=== PATIENT | male | born 1945 | race Caucasian/White ===

== ENCOUNTER 2020-08-23 12:21 | Outpatient (REF) | payer MEDICARE, SELFPAY ==
--- NOTE | 2020-08-23 | XR_ITS ---
EXAMINATION: XR SINUSES CLINICAL INFORMATION: Sinusitis. COMPARISON: None TECHNIQUE: 3 views of the sinuses were obtained. FINDINGS: Paranasal sinuses appear clear without air-fluid levels. No fractures are identified. No radiodense foreign bodies. IMPRESSION: Clear paranasal sinuses.
[2020-08-23 14:17] LABS: PSA,Total (Free>4and<10) 1.54 ng/mL (0.00-4.00)
== END 2020-08-23 12:22 | disposition home or self-care (01) ==
LOC: HO.10HDL 12:21
PROVIDERS: Absent Provider Otolaryngology; Visit Provider Urology
DX: N40.1 Benign prostatic hyperplasia with lower urinary tract symptoms (principal); Z12.5 Encounter for screening for malignant neoplasm of prostate; J32.9 Chronic sinusitis, unspecified
CPT/HCPCS: 36415; 70220; 84153

== ENCOUNTER → 2020-08-27 13:02 | Outpatient (BNVA) | payer MEDICARE, SELFPAY | PROVIDERS: PCP Internal Medicine; Visit Provider Urology | DX: N40.1 Benign prostatic hyperplasia with lower urinary tract symptoms (principal); N13.8 Other obstructive and reflux uropathy | CPT/HCPCS: 51798; 99213 ==

== ENCOUNTER 2020-10-27 09:37 | Outpatient (REF) | payer MEDICARE, SELFPAY ==
[2020-10-27 10:04] LABS: MANUAL DIFF FLAG NO
[2020-10-27 10:18] LABS: Basophils Absolute Auto 0.1 X10*3/uL (0.0-0.2); Basophils Percent Auto 0.9 % (0-2); Eosinophils Absolute Auto 0.2 X10*3/uL (0.0-0.4); Eosinophils Percent Auto 3.5 % (0-4); Hematocrit 43.1 % (42-52); Hemoglobin 14.6 g/dl (14.0-18.0); Imm Gran Abs Auto 0.01 X10*3/uL (0.00-0.03); Imm Gran Pct Auto 0.2 % (0.0-0.4); Lymphocytes Absolute Auto 1.8 X10*3/uL (1.2-4.9); Lymphocytes Percent Auto 31.7 % (20-40); Mean Corpuscular HGB Conc 33.9 g/dl (31.0-36.0); Mean Corpuscular Hemoglobin 31.3 pg (27.0-33.0); Mean Corpuscular Volume 92.3 fL (80-98); Mean Platelet Volume 10.4 fL (9.4-12.4); Monocytes Absolute Auto 0.6 X10*3/uL (0.1-1.2); Monocytes Percent Auto 10.6 % (2-11); Neutrophils Percent Auto 53.1 % (45-73); Platelet Count 153 X10*3/uL (160-400); Red Blood Count 4.67 X10*6/uL (4.60-5.80); Red Cell Distribution Width 12.8 % (11.0-16.0); White Blood Count 5.7 X10*3/uL (4.8-10.8)
[2020-10-27 10:29] LABS: Alanine Aminotransferase 26 U/L (0-40); Albumin Level 4.4 g/dL (3.5-5.0); Alkaline Phosphatase 67 U/L (39-117); Anion Gap 11 (12-20); Aspartate Amino Transferase 20 U/L (5-37); Bilirubin Total 1.3 mg/dL (0.0-1.0); Blood Urea Nitrogen 38 mg/dL (9-16); Calcium 9.1 mg/dL (8.4-10.2); Carbon Dioxide 26 mmol/L (22-29); Chloride 104 mmol/L (96-108); Cholesterol 108 mg/dL; Estimated Glomerular Filt Rate 48; Glucose Fasting 95 mg/dL (60-99); HDL Cholesterol 41 mg/dL; LDL Cholesterol Calculated 53 mg/dl; Potassium 4.2 mmol/l (3.3-5.1); Sodium 137 mmol/L (135-145); Total Protein 6.9 g/dL (6.5-8.0); Triglycerides 74 mg/dL
[2020-10-27 10:53] LABS: Thyroid Stimulating Hormone 1.72 uIU/mL (0.32-4.0)
== END 2020-10-27 09:38 | disposition home or self-care (01) ==
LOC: HO.10HDL 09:37
PROVIDERS: PCP Internal Medicine; Visit Provider Internal Medicine
DX: E78.5 Hyperlipidemia, unspecified (principal)
CPT/HCPCS: 36415; 80053; 80061; 84443; 85025

== ENCOUNTER 2021-02-02 10:53 | Outpatient (REF) | payer MEDICARE, SELFPAY ==
[2021-02-02 12:47] LABS: Glucose Urine UA NEG (NEG); Leukocyte Esterase Urine NEG (NEG); Nitrite Urine NEG (NEG); PH 5.5 (5.0-8.0); Specific Gravity - Urine 1.025 (1.005-1.025); Urine Blood NEG (NEG); Urine Ketones NEG (NEG); Urine Protein NEG (NEG-TRACE)
[2021-02-02 12:49] LABS: Appearance Urine CLEAR; Color Urine YELLOW
[2021-02-02 13:06] LABS: Bacteria Urine TRACE /LPF; Mucus Urine 1+ /LPF; RBC Urine 0-2 /HPF (0); Squamous Epithelial Cell Urine TRACE /LPF
== END 2021-02-02 10:54 | disposition home or self-care (01) ==
LOC: HO.LAB 10:53
PROVIDERS: PCP Internal Medicine; Visit Provider Urology
DX: N40.1 Benign prostatic hyperplasia with lower urinary tract symptoms (principal); N13.8 Other obstructive and reflux uropathy
CPT/HCPCS: 81001; 87086

== ENCOUNTER 2021-02-25 09:54 | Outpatient (REF) | payer MEDICARE, SELFPAY ==
[2021-02-25 12:12] LABS: Alanine Aminotransferase 22 U/L (0-40); Albumin Level 4.1 g/dL (3.5-5.0); Alkaline Phosphatase 63 U/L (39-117); Anion Gap 13 (12-20); Aspartate Amino Transferase 20 U/L (5-37); Bilirubin Total 1.3 mg/dL (0.0-1.0); Blood Urea Nitrogen 26 mg/dL (9-16); Calcium 9.1 mg/dL (8.4-10.2); Carbon Dioxide 28 mmol/L (22-29); Chloride 107 mmol/L (96-108); Cholesterol 117 mg/dL; Estimated Glomerular Filt Rate 55; Glucose Fasting 84 mg/dL (60-99); HDL Cholesterol 40 mg/dL; LDL Cholesterol Calculated 61 mg/dl; Potassium 3.8 mmol/L (3.3-5.1); Sodium 144 mmol/L (135-145); Total Protein 6.8 g/dL (6.5-8.0); Triglycerides 84 mg/dL
== END 2021-02-25 09:55 | disposition home or self-care (01) ==
LOC: HO.LAB 09:54
PROVIDERS: PCP Internal Medicine; Visit Provider Internal Medicine
DX: E11.9 Type 2 diabetes mellitus without complications (principal)
CPT/HCPCS: 36415; 80053; 80061

== ENCOUNTER → 2021-03-16 09:03 | Outpatient (BNVA) | payer MEDICARE, SELFPAY | PROVIDERS: PCP Internal Medicine; Visit Provider Internal Medicine | DX: I25.10 Atherosclerotic heart disease of native coronary artery without angina pectoris (principal); I10 Essential (primary) hypertension; I27.20 Pulmonary hypertension, unspecified | CPT/HCPCS: 93005; 99212 ==

== ENCOUNTER → 2021-04-06 13:02 | Outpatient (REF) | payer MEDICARE, SELFPAY ==
--- NOTE | 2021-04-06 13:00 | CA_ITS ---
Transthoracic Echocardiogram Patient (Last, First, Middle): Bryce Yarbrough M Gender: Male Date of : 1945 Age: 75 Procedure Date: 04/06/2021 Procedure Type: Transthoracic Echocardiogram Location: OP Height: 180.34 cm Weight: 106.6 kg BSA: 2.26 m2 Heart Rate: bpm BP: 130 / 84 mmHg Turnaround Planner: LISA Referring MD: Salvador Atkins MD Symptoms: I27.20 - Pulmonary hypertension, unspecified Conclusions: - 1.Normal LV systolic function with mild LVH with grade 1 diastolic dysfunction 2. Mild mitral regurgitation 3. Normal RV systolic pressure 4. No gross pericardial effusion Findings Left Ventricle Normal left ventricular size and systolic function. There is mildly increased left ventricular wall thickness. The visually estimated ejection fraction is between 60-65%. Spectral Doppler is indicative of an impaired relaxation filling pattern. E/E prime ratio is <8, consistent with normal filling pressures. Evidence suggests grade I (mild) diastolic dysfunction. Right Ventricle Normal right ventricular cavity size and systolic function. Atria The left atrium is likely dilated. There is no evidence of interatrial shunt. The right atrium is normal in size. Aortic Valve The aortic valve structure and function is likely normal. There is no aortic valve stenosis. There is no aortic valve regurgitation. Mitral Valve There is mild anterior and posterior mitral leaflet thickening. There is mild mitral annular calcification. There is mild mitral valve regurgitation. There is no mitral valve stenosis. Pulmonic Valve The pulmonic valve was not well visualized. Tricuspid Valve Likely normal tricuspid valve structure and function. There is mild tricuspid valve regurgitation. The right ventricular systolic pressure is normal. The right ventricular systolic pressure is 25 mmHg. Normal right atrial pressure. There is no evidence of pulmonary hypertension. Great Vessels All visible segments of the aorta are normal in size. The pulmonary artery was not well visualized. Venous The inferior vena cava is normal in size and collapses greater than 50% with inspiration. Pericardium/Pleural There is no evidence of pericardial effusion. Prior Study Comparison Changes noted compared to prior study. RV systolic pressure is calculated as normal on this study. May be underestimated Measurements 2D Linear Measurements IVSd: 1.20 0.6-0.9/0.6-1.0 cm LVIDd: 5.28 3.9-5.3/4.2-5.9 cm LVIDd Index: 2.34 2.4-3.2/2.2-3.1 cm/m2 LVIDs: 3.29 2.0-3.6 cm LVPWd: 1.25 0.7-1.1 cm Ao Root: 3.20 2.1-3.5 cm LA Diam: 3.80 2.7-3.8/3.0-4.0 cm LAIDs Index: 1.68 1.5-2.3 cm/m2 LV Mass: 375.41 67-162/88-224 g LV Mass Index: 166.11 43-95/49-115 g/m2 LVOT Diam: 2.20 3.0+(-)1.3 cm 2D Systolic Function EF 4C: 67.00 >55% Mitral Valve MV Pk E: 0.49 MV PK A: 0.84 MV Decel Time: 279.00 E/A: 0.60 E'Lateral: 7.51 E'Medial: 4.03 E/E' Med: 12.10 E/E' Lat: 6.50 PHT: 82.00 MVA PHT: 2.68 Decel Putnam: 1.75 Aortic Valve AoV Pk Aly: 1.37 AoV Pk Grad: 8.00 LVOT LVOT Pk Aly: 1.05 LVOT Mn Aly: 0.65 LVOT VTI: 0.22 LVOT Pk Grad: 4.00 LVOT Mn Grad: 2.00 LVOT Diam: 2.20 LVOT Area: 3.80 Diastolic Function MV Pk E: 0.49 MV Pk A: 0.84 E/A: 0.60 E'Medial: 4.03 E/E' Med: 12.10 E' Laterial: 7.51 E/E' Lat: 6.50 Tricuspid Valve TR Pk Aly: 2.39 TR Pk Grad: 23.00 RA Press: 3.00 RVSP: 25.00 Great Vessels Aorta Ao Root-2D: 3.20 2.0-3.7 cm Ao Asc: 3.70 2.1-3.4 cm Updated in Other Vendor System with Status of Final Gil Reid MD electronically signed on 04/08/2021 12:29:41 PM with status of Final
== END ==
LOC: HO.CARD 13:02
PROVIDERS: Visit Provider Internal Medicine
DX: I27.20 Pulmonary hypertension, unspecified (principal)
CPT/HCPCS: 93306

== ENCOUNTER 2021-05-02 09:24 | Outpatient (REF) | payer MEDICARE, SELFPAY ==
[2021-05-02 10:25] LABS: Anion Gap 13 (12-20); Blood Urea Nitrogen 30 mg/dL (9-16); Calcium 9.4 mg/dL (8.4-10.2); Carbon Dioxide 26 mmol/L (22-29); Chloride 108 mmol/L (96-108); Estimated Glomerular Filt Rate 59; Glucose Random 94 mg/dL (60-115); Potassium 4.7 mmol/L (3.3-5.1); Sodium 142 mmol/L (135-145)
== END 2021-05-02 09:25 | disposition home or self-care (01) ==
LOC: HO.LAB 09:24
PROVIDERS: Absent Provider Internal Medicine; PCP Internal Medicine; Visit Provider Internal Medicine
DX: I25.10 Atherosclerotic heart disease of native coronary artery without angina pectoris (principal)
CPT/HCPCS: 36415; 80048

== ENCOUNTER → 2021-05-19 08:59 | Outpatient (BNVA) | payer MEDICARE, SELFPAY | PROVIDERS: PCP Internal Medicine; Referring Provider Internal Medicine; Visit Provider Internal Medicine | DX: I25.10 Atherosclerotic heart disease of native coronary artery without angina pectoris (principal); I10 Essential (primary) hypertension; I27.20 Pulmonary hypertension, unspecified | CPT/HCPCS: 99212 ==

== ENCOUNTER 2021-05-26 08:21 | Emergency (ER) | payer MEDICARE, SELFPAY ==
[2021-05-26 08:28] VITALS: BP 109/72; PULSE 62; RESP 17; TEMP 36.5; O2SAT 96; BMI 32.8
--- NOTE | 2021-05-26 08:52 | ED_ITS ---
HPI - Wound/Laceration General Chief Complaint: Wound/Laceration Stated Complaint: finger laceration Time Seen by Provider: 05/26/21 08:51 Source: patient Mode of arrival: ambulatory Limitations: no limitations History of Present Illness HPI narrative: 75-year-old male came in for evaluation of right 5th finger laceration. Patient was shredding vegetable with slighter and incidentally his slight his right 5th finger, this happen yesterday, patient cleaned it that tried to wrap it but because the bleeding did not stop came in today. Patient is taking no anticoagulation. Related Data Home Medications Medication Instructions Recorded Confirmed fluticasone propionate 50 INTRANASAL 08/27/20 05/19/21 mcg/actuation nasal spray,suspension allopurinol 300 mg tablet 150 mg PO DAILY tab 03/16/21 05/19/21 aspirin 81 mg tablet,delayed 81 mg PO DAILY 03/16/21 05/19/21 release omega-3 fatty acids 1,000 mg 2,000 mg PO DAILY 03/16/21 05/19/21 capsule vitamin B complex 1 cap PO DAILY 03/16/21 05/19/21 Previous Rx's Medication Instructions Recorded tamsulosin 0.4 mg capsule 0.4 mg PO DAILY #30 cap 08/27/20 atorvastatin 40 mg tablet 40 mg PO BEDTIME 90 Days #90 tab 09/15/20 lisinopril 20 1 tab PO DAILY #90 tab 03/24/21 mg-hydrochlorothiazide 25 mg tablet Allergies Allergy/AdvReac Type Severity Reaction Status Date / Time No Known Allergies Allergy Verified 05/26/21 08:27 [No Known Allergies*] Review of Systems Review of Systems: All other systems are reviewed and are negative Constitutional: Reports as per HPI and Reports no additional constitutional complaints Eyes: Reports as per HPI and Reports no additional eye complaints Reports system reviewed and no additional complaints, except as documented Cardiovascular: Reports as per HPI and Reports no additional cardiovascular complaints Respiratory: Reports as per HPI and Reports no additional respiratory complaints Gastrointestinal: Reports as per HPI and Reports no additional gastrointestinal complaints Genitourinary: Reports no additional female genitourinary complaints Musculoskeletal: Reports no additional musculoskeletal complaints Skin/Breast: Reports system reviewed and no additional complaints, except as docu Psychiatric: Reports no additional psychiatric complaints Endocrine: Reports no additional endocrine complaints Hematologic/Lymphatic: Reports no additional hematologic/lymphatic complaints Allergic/Immunologic: Reports no additional allergic/immunologic complaints Reports system reviewed and no additional complaints, except as documented and Reports Abnormal speech present [facility] Past Medical History Medical History Essential hypertension HLD (hyperlipidemia) Pulmonary hypertension Surgical History History of cataract surgery Family History Family History Father No problems noted. Mother Colon cancer Sister Colon cancer Brother Stomach cancer Social History Social History Housing: House Alcohol intake: never Patient Tobacco Use Status: Former Tobacco user (50 year sago) Advance Directives: Yes Advance Directives on File: Yes Advance Directives Date on File: 08/23/20 Current occupational status: retired Physical Exam Vital Signs: Vital Signs: Last Vital Signs Temp 97.7 F 05/26/21 08:28 Pulse 62 05/26/21 08:28 Resp 17 05/26/21 08:28 BP 109/72 05/26/21 08:28 Pulse Ox 96 05/26/21 08:28 Body Mass Index 32.8 Vital signs have been reviewed as appeared to be correct. Blood pressure normal. Heart rate normal. Respiration rate normal. Temperature normal. Oxygen saturation normal. Appearance: Alert. Oriented X3. No acute distress. Head: Normal external exam. Normocephalic. Atraumatic. No Wilkes signs noted. No raccoon eyes noted Eyes: PERRLA. EOMI. Conjunctiva and sclera normal. Eyelids normal. ENT: TM's Normal. Pharynx normal. Uvula midline. Moist mucous membranes. No trismus noted. No drooling noted. No muffled voice noted. Neck: Normal inspection. Neck supple. FROM. No adenopathy. Thyroid Normal. No meningeal signs. No neck mass noted. CVS: Normal heart rate and rhythm. Heart sound normal. No murmurs noted. Pulses normal throughout. Respiratory: No respiratory distress. Painless inspiration. Breath sounds normal. No wheezes/rales/rhonchi noted. Chest nontender. No accessory muscle usage noted or decreased air movement noted. Abdomen: Soft and nontender. Bowel sounds normal in all 4 quadrants. No distention noted. No organomegaly noted. No visible injury noted. Back: No CVA tenderness. Full range of motion noted. Skin: Skin warm and dry. Normal skin color. Normal skin turgor. No rashes/lesions/lacerations noted. Extremities: Right 5th finger with missing scan about 1 by 0.5 cm, currently no active bleeding. Neuro: Oriented X 3. No motor deficit. No sensory deficit. Reflexes normal. Course Course Course Narrative: Laceration to the right 5th finger since yesterday ( 24 hours ago) closing the incision with sutures might risk infection, Dermabond was used. will update tetanus shot. Procedures Laceration Laceration 1: Site: upper extremity ( Right 5th finger) Side (If applicable): right Size (cm): 1 Pre-repair: wound explored Technique: other ( use Dermabond.) Discharge Plan Discharge Clinical Impression: Laceration Patient Disposition: Home, Self-Care Instructions: Finger Laceration (ED) Prescriptions: No Action atorvastatin 40 mg tablet 40 mg PO BEDTIME 90 Days Qty: 90 RF: 3 lisinopril-hydrochlorothiazide 20-25 mg tablet 1 tab PO DAILY Qty: 90 RF: 1 fluticasone propionate 50 mcg/actuation spray,suspension intranasal RF: 0 tamsulosin 0.4 mg capsule 0.4 mg PO DAILY Qty: 30 RF: 6 allopurinol 300 mg tablet 150 mg PO DAILY RF: 0 aspirin 81 mg tablet,delayed release (DR/EC) 81 mg PO DAILY RF: 0 omega-3 fatty acids [Fish Oil Concentrate] 1,000 mg capsule 2,000 mg PO DAILY RF: 0 vitamin B complex [Super B-50 Complex] Capsule 1 cap PO DAILY RF: 0 Referrals: Irving Valentin MD [Primary Care Provider] - 2 days
[2021-05-26] MEDS: Diphth,Pertus(ACell),Tet Adult 0.5 ML SYRINGE IM (09:15)
== END 2021-05-26 09:22 | disposition home or self-care (01) ==
PROVIDERS: Emergency Provider Emergency Medicine; PCP Internal Medicine
DX: S61.216A Laceration without foreign body of right little finger without damage to nail, initial encounter (principal); W27.8XXA Contact with other nonpowered hand tool, initial encounter; Y93.G1 Activity, food preparation and clean up; Y92.010 Kitchen of single-family (private) house as the place of occurrence of the external cause; Y99.9 Unspecified external cause status
CPT/HCPCS: 12001; 90471; 90715; 99283; 99284

== ENCOUNTER → 2021-08-26 13:46 | Outpatient (BNVA) | payer MEDICARE, SELFPAY | PROVIDERS: PCP Internal Medicine; Visit Provider Urology | DX: N40.1 Benign prostatic hyperplasia with lower urinary tract symptoms (principal); N13.8 Other obstructive and reflux uropathy | CPT/HCPCS: 51798; 99212 ==

== ENCOUNTER 2021-11-07 07:55 | Outpatient (REF) | payer MEDICARE, SELFPAY ==
[2021-11-07 08:06] LABS: MANUAL DIFF FLAG NO
[2021-11-07 08:21] LABS: Basophils Percent Auto 0.2 % (0-2); Hematocrit 42.9 % (42.0-52.0); Hemoglobin 14.8 g/dl (14.0-18.0); Imm Gran Abs Auto 0.03 X10*3/uL (0.00-0.03); Imm Gran Pct Auto 0.4 % (0.0-0.4); Lymphocytes Absolute Auto 1.9 X10*3/uL (1.2-4.9); Lymphocytes Percent Auto 22.3 % (20-40); Mean Corpuscular HGB Conc 34.5 g/dl (31.0-36.0); Mean Corpuscular Volume 89.9 fL (80.0-98.0); Mean Platelet Volume 10.2 fL (9.4-12.4); Monocytes Absolute Auto 0.6 X10*3/uL (0.1-1.2); Monocytes Percent Auto 7.4 % (2-11); Neutrophils Absolute Auto 5.9 x10*3/uL (2.0-8.3); Neutrophils Percent Auto 69.7 % (45-73); Platelet Count 194 X10*3/uL (160-400); Red Blood Count 4.77 X10*6/uL (4.60-5.80); Red Cell Distribution Width 12.4 % (11.0-16.0); White Blood Count 8.4 X10*3/uL (4.8-10.8)
[2021-11-07 08:55] LABS: Alanine Aminotransferase 26 U/L (0-40); Albumin Level 4.3 g/dL (3.5-5.0); Alkaline Phosphatase 58 U/L (39-117); Anion Gap 11 (12-20); Aspartate Amino Transferase 23 U/L (5-37); Bilirubin Total 1.1 mg/dL (0.0-1.0); Blood Urea Nitrogen 37 mg/dL (9-16); Calcium 9.7 mg/dL (8.4-10.2); Carbon Dioxide 25 mmol/L (22-29); Chloride 108 mmol/L (96-108); Cholesterol 113 mg/dL; Estimated Glomerular Filt Rate 56; Glucose Fasting 106 mg/dL (60-99); HDL Cholesterol 41 mg/dL; LDL Cholesterol Calculated 57 mg/dl; Sodium 140 mmol/L (135-145); Total Protein 7.1 g/dL (6.5-8.0); Triglycerides 77 mg/dL
[2021-11-07 09:16] LABS: Prostate Specific Antigen Scr 1.29 ng/mL (<0.05-4.0)
== END 2021-11-07 07:56 | disposition home or self-care (01) ==
LOC: HO.LAB 07:55
PROVIDERS: PCP Internal Medicine; Visit Provider Nurse Practitioner Family
DX: Z00.00 Encounter for general adult medical examination without abnormal findings (principal); I10 Essential (primary) hypertension; I25.10 Atherosclerotic heart disease of native coronary artery without angina pectoris; N13.8 Other obstructive and reflux uropathy; N40.1 Benign prostatic hyperplasia with lower urinary tract symptoms; E78.00 Pure hypercholesterolemia, unspecified
CPT/HCPCS: 36415; 80053; 80061; 84153; 85025

== ENCOUNTER 2022-02-25 18:12 | Emergency (ER) | payer MEDICARE, SELFPAY ==
--- NOTE | ~2022-02-25 | XR_ITS ---
EXAMINATION: XR CHEST CLINICAL INFORMATION: Cough COMPARISON: 08/30/2018 TECHNIQUE: Frontal view of the chest was obtained. FINDINGS: Stable cardiac and mediastinal silhouette. Pulmonary vascularity is within normal limits. No focal consolidation, effusion or pulmonary edema. No pneumothorax is seen. Thoracic spine degeneration. XR/XR chest 1V IMPRESSION: No evidence of acute pulmonary process.
[2022-02-25 18:21] VITALS: BP 110/72; PULSE 87; RESP 19; TEMP 36.6; O2SAT 95; BMI 31.8
[2022-02-25 18:51] LABS: Appearance Urine CLOUDY; Color Urine YELLOW; Glucose Urine UA NEG (NEG); Leukocyte Esterase Urine 2+ (NEG); Nitrite Urine NEG (NEG); PH 5.5 (5.0-8.0); Specific Gravity - Urine 1.025 (1.005-1.025); UACC Culture Trigger YES; Urine Blood 1+ (NEG); Urine Ketones NEG (NEG); Urine Protein TRACE MG/DL (NEG-TRACE)
[2022-02-25 19:01] LABS: WBC Urine TNTC /HPF (0-4)
[2022-02-25 19:02] LABS: Bacteria Urine 2+ /LPF; Mucus Urine 2+ /LPF; Squamous Epithelial Cell Urine TRACE /LPF
--- NOTE | 2022-02-25 19:03 | ED.MALEGU ---
HPI - Male Genitourinary General Chief complaint: Urogenital-Male Stated complaint: possible UTI Time Seen by Provider: 02/25/22 18:41 Source: patient Mode of arrival: ambulatory History of Present Illness HPI Narrative: 76-year-old male with a past medical history of HTN, HLD, pulmonary hypertension, presenting to the ED complaining of urinary frequency, dysuria, chills, slight dry cough x4 days. Denies fever, ear pain, sore throat, CP, SOB, abdominal pain, flank pain, hematuria MD Complaint: dysuria Onset (ago): day(s) Related Data Home Medications Medication Instructions Recorded Confirmed allopurinol 300 mg tablet 150 mg PO DAILY tab 03/16/21 11/07/21 aspirin 81 mg tablet,delayed 81 mg PO DAILY 03/16/21 11/07/21 release omega-3 fatty acids 1,000 mg 2,000 mg PO DAILY 03/16/21 11/07/21 capsule (Fish Oil Concentrate) vitamin B complex (Super B-50 1 cap PO DAILY 03/16/21 11/07/21 Complex) Previous Rx's Medication Instructions Recorded lisinopril 20 1 tab PO DAILY #90 tab 11/05/21 mg-hydrochlorothiazide 25 mg tablet atorvastatin 40 mg tablet 40 mg PO BEDTIME 90 Days #90 tab 12/19/21 tamsulosin 0.4 mg capsule 0.4 mg PO DAILY #90 cap 02/06/22 levofloxacin 750 mg tablet 750 mg PO DAILY 6 Days #6 tab 02/25/22 Allergies Allergy/AdvReac Type Severity Reaction Status Date / Time No Known Allergies Allergy Verified 11/07/21 09:40 [No Known Allergies*] Review of Systems Review of Systems: Constitutional: No Fever, + Chills, No Fatigue, No Malaise ENT/Mouth: No Ear Pain, No Nasal Congestion, No Sinus Pain, No sore throat, No Rhinorrhea, No Swallowing Difficulty Eyes: No Eye Pain, No Swelling, No Redness Cardiovascular: No Chest Pain, No SOB, No Edema, No Palpitations Respiratory: + Cough, No Sputum, No Dyspnea Gastrointestinal: No Nausea, No Vomiting, No Diarrhea, No Constipation, No Abdominal pain Genitourinary: No irregular bleeding, + Dysuria, + Urinary Frequency, No Hematuria, No Urinary Incontinence, No Urgency, No Flank Pain Musculoskeletal: No joint pain, No Myalgias, No Joint Swelling Skin: No Skin Lesions, No rash Neuro: No Weakness, No Dizziness, No Headache Yes all other systems are reviewed and are negative [facility] Past Medical History Attestation statement: The following information was validated with the patient. Medical History Essential hypertension HLD (hyperlipidemia) Obesity Pulmonary hypertension Surgical History History of cataract surgery Family History Family History Father No problems noted. Mother Colon cancer Sister Colon cancer Brother Stomach cancer Social History Social History Housing: House Alcohol intake: never Patient Tobacco Use Status: Former Tobacco user (50 year sago) Tobacco use type: Cigarette e-Cigarette/Vaping Use: Never Used Second Hand Smoke Exposure: No Advance Directives: Yes Advance Directives on File: Yes Advance Directives Date on File: 08/23/20 Current occupational status: retired Cognitive needs: No Hearing needs: No Vision needs: No Physical Exam Vital Signs: Vital Signs: Last Vital Signs Temp 98 F 02/25/22 18:21 Pulse 87 02/25/22 18:21 Resp 19 02/25/22 18:21 BP 110/72 02/25/22 18:21 Pulse Ox 95 02/25/22 18:21 BMI result Body Mass Index 31.8 Const: General: cooperative, healthy appearing, no acute distress, alert and awake Orientation/consciousness: patient oriented x3 Limitations: no limitations HEENT: Head: Yes normal to inspection Ears: hearing grossly normal bilaterally, external ears normal, TM's normal bilaterally and mastoids normal General nose exam: Normal external nose present Face and sinus: Yes normal facial exam Mouth: Normal oral and palatal mucosa present Throat: Yes posterior oropharynx normal, Yes tonsils normal, Yes uvula midline, No peritonsillar mass, No uvula laterally displaced and No uvular edema Eyes: General: appearance normal, both eyes and all related structures EOM: EOMs intact bilaterally Neck: Neck: Yes normal visual inspection and Yes no lymphadenopathy Resp: Effort & Inspection: normal respiratory effort and no respiratory distress Auscultation: clear to auscultation bilaterally, no rales, no rhonchi and no wheezes Cardio: Rate: regular rate Heart sounds: S1 normal heart sound present and S2 normal heart sound present GI: Inspection: Yes normal to inspection Palpation (GI): Soft to palpation, nontender, no guarding and not rigid : General: Yes no CVA tenderness Back/Spine/Pelvis: Back: no CVA tenderness Skin: Rashes: no rashes Wounds: no wounds Neuro: General: patient oriented x3 Gait exam (Neuro): Normal gait present Extrem: General: Yes normal to inspection Course Course Course Narrative: XR chest 1V IMPRESSION: No evidence of acute pulmonary process. -UA infected > patient given 1st dose of Levaquin in the ED -COVID-19 & influenza negative MDM - Male Genitourinary MDM Narrative Medical decision making narrative: 76-year-old male with a past medical history of HTN, HLD, pulmonary hypertension, presenting to the ED complaining of urinary frequency, dysuria, chills, slight dry cough x4 days. On exam vital signs stable, NAD/nontoxic appearing, lungs CTA, abdomen soft/nontender, no CVA tenderness. Rule out UTI. Concern for viral syndrome, rule out pneumonia. Low concern for intra-abdominal pathology or pyelo Plan: COVID/Flu testing, CXR, UA Differential Diagnosis Differential diagnosis: Likely urinary tract infection Medical Records Attestation: I reviewed the patient's medical records. Lab Data Attestation: I reviewed the patient's lab results. Labs: Lab Results 02/25/22 02/25/22 02/25/22 Range/Units 18:40 19:04 19:05 Urine Color YELLOW Urine Appearance CLOUDY Urine pH 5.5 (5.0-8.0) Ur Specific [place] 1.025 (1.005-1.025) Urine Protein TRACE (NEG-TRACE) MG/DL Urine Glucose (UA) NEG (NEG) MG/DL Urine Ketones NEG (NEG) MG/DL Urine Blood 1+ H (NEG) Urine Nitrite NEG (NEG) Ur Leukocyte Esterase 2+ H (NEG) Urine RBC 1-4 (0) /HPF Urine WBC TNTC H (0-4) /HPF Ur Squamous Epith Cells TRACE /LPF Urine Bacteria 2+ /LPF Urine Mucus 2+ /LPF COVID-19 (ROBBI) Negative (Negative) COVID-19 Clin Com See Note Influenza Type A (MEGAN) Negative (Negative) Influenza Type B (MEGAN) Negative (Negative) Influenza A & B Note See Note Discharge Plan Discharge Clinical Impression: Acute UTI, URI (upper respiratory infection) Patient Disposition: Home, Self-Care Instructions: Urinary Tract Infection in Men (DC), Viral Syndrome (ED) Additional Instructions: You have a urinary tract infection. Levaquin is an antibiotic please take as prescribed Your chest x-ray was unremarkable You tested negative for COVID-19 and the flu Please follow-up with her doctor If symptoms persist or worsen you develop abdominal pain fever, or back pain please return to the ED Prescriptions: New levofloxacin 750 mg tablet 750 mg PO DAILY 6 Days Qty: 6 0RF No Action lisinopril-hydrochlorothiazide 20-25 mg tablet 1 tab PO DAILY Qty: 90 1RF atorvastatin 40 mg tablet 40 mg PO BEDTIME 90 Days Qty: 90 3RF tamsulosin 0.4 mg capsule 0.4 mg PO DAILY Qty: 90 1RF allopurinol 300 mg tablet 150 mg PO DAILY 0RF aspirin 81 mg tablet,delayed release (DR/EC) 81 mg PO DAILY 0RF omega-3 fatty acids [Fish Oil Concentrate] 1,000 mg capsule 2,000 mg PO DAILY 0RF vitamin B complex [Super B-50 Complex] Capsule 1 cap PO DAILY 0RF Referrals: Irving Valentin MD [Primary Care Provider] - 5 days
[2022-02-25 19:29] LABS: COVID-19 Test Negative (Negative); IDNOW Serial# 16C4AD1C
[2022-02-25 19:29] LABS: Influenza A Negative (Negative); Influenza B2 Negative (Negative)
[2022-02-25] MEDS: levoFLOXacin 750 MG TABLET PO (20:42)
== END 2022-02-25 20:48 | disposition home or self-care (01) ==
PROVIDERS: Physician Assistant; Emergency Provider Internal Medicine; PCP Internal Medicine
DX: N39.0 Urinary tract infection, site not specified (principal); J06.9 Acute upper respiratory infection, unspecified; Z20.822 Contact with and (suspected) exposure to COVID-19; I10 Essential (primary) hypertension; E78.5 Hyperlipidemia, unspecified; Z79.82 Long term (current) use of aspirin; Z79.899 Other long term (current) drug therapy; Z79.02 Long term (current) use of antithrombotics/antiplatelets
CPT/HCPCS: 71045; 81001; 87086; 87088; 87186; 87502; 87635; 99283; 99284

== ENCOUNTER → 2022-05-24 13:02 | Outpatient (BNVA) | payer MEDICARE, SELFPAY | PROVIDERS: PCP Internal Medicine; Referring Provider Internal Medicine; Visit Provider Internal Medicine | DX: I25.10 Atherosclerotic heart disease of native coronary artery without angina pectoris (principal); I45.2 Bifascicular block; I10 Essential (primary) hypertension; Z79.82 Long term (current) use of aspirin; Z79.899 Other long term (current) drug therapy | CPT/HCPCS: 93005; 99212 ==

== ENCOUNTER 2022-06-20 08:11 | Outpatient (REF) | payer MEDICARE, SELFPAY ==
[2022-06-20 08:25] LABS: MANUAL DIFF FLAG NO
[2022-06-20 08:35] LABS: Basophils Absolute Auto 0.1 X10*3/uL (0.0-0.2); Basophils Percent Auto 1.5 % (0-2); Eosinophils Absolute Auto 0.3 X10*3/uL (0.0-0.4); Eosinophils Percent Auto 4.5 % (0-4); Hematocrit 42.2 % (42.0-52.0); Hemoglobin 14.3 g/dl (14.0-18.0); Imm Gran Abs Auto 0.02 X10*3/uL (0.00-0.03); Imm Gran Pct Auto 0.3 % (0.0-0.4); Lymphocytes Absolute Auto 2.2 X10*3/uL (1.2-4.9); Lymphocytes Percent Auto 33.6 % (20-40); Mean Corpuscular HGB Conc 33.9 g/dl (31.0-36.0); Mean Corpuscular Hemoglobin 30.6 pg (27.0-33.0); Mean Corpuscular Volume 90.4 fL (80.0-98.0); Mean Platelet Volume 10.2 fL (9.4-12.4); Monocytes Absolute Auto 0.8 X10*3/uL (0.1-1.2); Neutrophils Absolute Auto 3.2 x10*3/uL (2.0-8.3); Neutrophils Percent Auto 48.1 % (45-73); Platelet Count 168 X10*3/uL (160-400); Red Blood Count 4.67 X10*6/uL (4.60-5.80); White Blood Count 6.6 X10*3/uL (4.8-10.8)
[2022-06-20 09:02] LABS: Alanine Aminotransferase 20 U/L (0-40); Albumin Level 4.3 g/dL (3.5-5.0); Alkaline Phosphatase 71 U/L (39-117); Anion Gap 15 (12-20); Aspartate Amino Transferase 20 U/L (5-37); Bilirubin Total 0.9 mg/dL (0.0-1.0); Blood Urea Nitrogen 36 mg/dL (9-16); Calcium 9.3 mg/dL (8.4-10.2); Carbon Dioxide 26 mmol/L (22-29); Chloride 106 mmol/L (96-108); Cholesterol 105 mg/dL; Estimated Glomerular Filt Rate 50; Glucose Fasting 101 mg/dL (60-99); HDL Cholesterol 36 mg/dL; LDL Cholesterol Calculated 51 mg/dl; Potassium 4.2 mmol/L (3.3-5.1); Sodium 143 mmol/L (135-145); Triglycerides 93 mg/dL
[2022-06-20 09:26] LABS: Thyroid Stimulating Hormone 2.56 uIU/mL (0.32-4.0)
== END 2022-06-20 08:12 | disposition home or self-care (01) ==
LOC: HO.LAB 08:11
PROVIDERS: PCP Internal Medicine; Visit Provider Internal Medicine
DX: Z00.00 Encounter for general adult medical examination without abnormal findings (principal); Z13.0 Encounter for screening for diseases of the blood and blood-forming organs and certain disorders involving the immune mechanism
CPT/HCPCS: 36415; 80053; 80061; 84443; 85025

== ENCOUNTER 2022-12-12 08:49 | Outpatient (REF) | payer MEDICARE, SELFPAY ==
[2022-12-12 09:03] LABS: MANUAL DIFF FLAG NO
[2022-12-12 09:22] LABS: Basophils Percent Auto 0.2 % (0-2); Eosinophils Absolute Auto 0.3 X10*3/uL (0.0-0.4); Hematocrit 43.4 % (42.0-52.0); Hemoglobin 14.6 g/dl (14.0-18.0); Imm Gran Abs Auto 0.07 X10*3/uL (0.00-0.03); Imm Gran Pct Auto 0.7 % (0.0-0.4); Lymphocytes Absolute Auto 1.6 X10*3/uL (1.2-4.9); Lymphocytes Percent Auto 15.2 % (20-40); Mean Corpuscular HGB Conc 33.6 g/dl (31.0-36.0); Mean Corpuscular Hemoglobin 30.8 pg (27.0-33.0); Mean Corpuscular Volume 91.6 fL (80.0-98.0); Mean Platelet Volume 10.2 fL (9.4-12.4); Monocytes Absolute Auto 0.9 X10*3/uL (0.1-1.2); Monocytes Percent Auto 8.8 % (2-11); Neutrophils Absolute Auto 7.6 x10*3/uL (2.0-8.3); Neutrophils Percent Auto 72.1 % (45-73); Platelet Count 132 X10*3/uL (160-400); Red Blood Count 4.74 X10*6/uL (4.60-5.80); White Blood Count 10.5 X10*3/uL (4.8-10.8)
[2022-12-12 10:28] LABS: Alanine Aminotransferase 28 U/L (0-40); Albumin Level 3.8 g/dL (3.5-5.0); Alkaline Phosphatase 64 U/L (39-117); Anion Gap 13 (12-20); Aspartate Amino Transferase 21 U/L (5-37); Bilirubin Total 1.8 mg/dL (0.0-1.0); Blood Urea Nitrogen 51 mg/dL (9-16); Calcium 9.3 mg/dL (8.4-10.2); Carbon Dioxide 26 mmol/L (22-29); Chloride 105 mmol/L (96-108); Cholesterol 122 mg/dL; Estimated Glomerular Filt Rate 47; Glucose Fasting 88 mg/dL (60-99); HDL Cholesterol 46 mg/dL; LDL Cholesterol Calculated 65 mg/dl; Potassium 4.4 mmol/L (3.3-5.1); Sodium 140 mmol/L (135-145); Triglycerides 57 mg/dL
[2022-12-12 10:47] LABS: Thyroid Stimulating Hormone 2.77 uIU/mL (0.32-4.0)
== END 2022-12-12 08:50 | disposition home or self-care (01) ==
LOC: HO.LAB 08:49
PROVIDERS: Visit Provider Internal Medicine
DX: Z13.0 Encounter for screening for diseases of the blood and blood-forming organs and certain disorders involving the immune mechanism (principal); E03.9 Hypothyroidism, unspecified; I10 Essential (primary) hypertension; E78.5 Hyperlipidemia, unspecified
CPT/HCPCS: 36415; 80053; 80061; 84443; 85025

== ENCOUNTER → 2022-12-18 09:21 | Outpatient (BNVA) | payer MEDICARE, SELFPAY | PROVIDERS: PCP Internal Medicine; Visit Provider Nurse Practitioner Family | DX: N40.1 Benign prostatic hyperplasia with lower urinary tract symptoms (principal); N13.8 Other obstructive and reflux uropathy | CPT/HCPCS: 51798; 99212 ==

== ENCOUNTER 2023-02-12 10:55 | Outpatient (REF) | payer MEDICARE, SELFPAY ==
--- NOTE | ~2023-02-12 | CT_ITS ---
EXAMINATION: CT ABDOMEN AND PELVIS WITHOUT CONTRAST CLINICAL INFORMATION: Right flank pain, weight loss COMPARISON: CT abdomen and pelvis 11/15/2011 TECHNIQUE: Multidetector volumetric imaging was performed from the superior aspect of the liver through the pubic symphysis. Sagittal and coronal reformatted images were obtained on the technologist's workstation. This CT examination was performed using dose optimization techniques as appropriate, variously including the following: *Automated exposure control *Adjustment of mA and/or kV according to patient size (this includes techniques or standardized protocols for targeted exams where dose is matched to indication/reason for exam; i.e. extremities or head) *Use of iterative reconstruction technique DLP: 630 mGy-cm FINDINGS: LUNG BASES: The lung bases are clear. Heart size is normal. LIVER, GALLBLADDER, AND BILIARY TREE: The liver is normal in size, shape, and attenuation. No focal hepatic lesion or biliary ductal dilatation is present. The gallbladder is unremarkable with no evidence of radiopaque gallstones, gallbladder wall thickening, or obvious pericholecystic inflammatory changes. PANCREAS: Unremarkable. SPLEEN: Unremarkable. ADRENAL GLANDS: Unremarkable. KIDNEYS AND URETERS: The kidneys are normal in size, shape, and attenuation. No hydronephrosis, hydroureter, or calculi seen. Bilateral perinephric stranding is seen. There is a 1.0 cm exophytic cyst, lower pole right kidney. Bilateral extrarenal kidney pelvises are noted. BLADDER: The bladder is undistended. GASTROINTESTINAL TRACT: There is scattered stool, diverticuli and gas seen in the colon without any significant distention. Right colon and the cecum lies in the right mid abdomen. There are scattered diverticuli seen in the significantly redundant sigmoid colon with mild mural thickening involving the sigmoid colon on axial image 46/3. The small bowel loops are normal caliber. Appendix is not visualized. There is a small diverticulum in the second/third segments of the duodenum. ABDOMINAL WALL: No significant hernia is appreciated. LYMPH NODES: Normal. VASCULAR: Unremarkable. PELVIC VISCERA: There is no free air or free fluid. OSSEOUS STRUCTURES: There are degenerative disc changes with vacuum disc phenomena and ventral spondylosis throughout the lumbar spine. CT/CT abdomen pelvis wo IV con IMPRESSION: 1. No acute intra-abdominal process seen. 2. Scattered colonic diverticulosis most prominent within redundant sigmoid colon. There is mild mural thickening involving the redundant sigmoid colon. Question inflammatory process. Underlying lesion is not excluded.. Recommend endoscopy. 3. Bilateral extrarenal kidney pelvises with no radiopaque urolith or hydroureteronephrosis. 4. Small exophytic cyst lower pole right kidney. Fleischner guidelines were followed.
== END 2023-02-12 10:56 | disposition home or self-care (01) ==
LOC: HO.CT 10:55
PROVIDERS: PCP Internal Medicine; Visit Provider Internal Medicine Nephrology
DX: I12.9 Hypertensive chronic kidney disease with stage 1 through stage 4 chronic kidney disease, or unspecified chronic kidney disease (principal); N18.31 Chronic kidney disease, stage 3a
CPT/HCPCS: 74176

== ENCOUNTER → 2023-03-26 14:52 | Outpatient (BNVA) | payer MEDICARE, SELFPAY | PROVIDERS: PCP Internal Medicine; Visit Provider Internal Medicine | DX: I25.10 Atherosclerotic heart disease of native coronary artery without angina pectoris (principal); I45.2 Bifascicular block; I10 Essential (primary) hypertension; Z79.899 Other long term (current) drug therapy | CPT/HCPCS: 93005; 99212 ==

== ENCOUNTER 2023-04-06 08:53 | Day surgery (SDC) | payer MEDICARE, SELFPAY ==
--- NOTE | 2023-04-05 14:22 | P.CONAN_ITS ---
HPI - Anesthesia Eval Consult details Narrative: 77yo M for Colonoscopy Hx Pulm Htn - Echo scheduled for 04/09/23 [facility] Active Problems Active Problems: All Active Problems (Updated 04/05/23 @ 12:59 by Suzanne Caldera RN) BPH with obstruction/lower urinary tract symptoms (Acute) Atherosclerotic cardiovascular disease (Acute) Encounter for annual wellness exam in Medicare patient (Acute) Mild depression (Acute) Chronic right hip pain (Acute) Knee pain (Acute) Obesity (Acute) Bifascicular block (Acute) Hypersensitivity reaction (Acute) Obesity (Acute) Pulmonary hypertension (Acute) Essential hypertension (Acute) HLD (hyperlipidemia) (Acute) Past Medical History Medical History (Updated 04/05/23 @ 12:59 by Suzanne Caldera RN) Essential hypertension Gastric ulcer Gout HLD (hyperlipidemia) Hx of skin pruritus Obesity Pulmonary hypertension Renal insufficiency Family History Family History Father No problems noted. Mother Colon cancer Sister Colon cancer Brother Stomach cancer Surgical History Surgical History (Updated 04/05/23 @ 12:59 by Suzanne Caldera RN) H/O foot surgery History of cataract surgery Social History Social History (Updated 03/26/23 @ 15:04 by Amber Donnelly) Housing: House Alcohol intake: never Patient Tobacco Use Status: Former Tobacco user Quit Date: 50 e-Cigarette/Vaping Use: Never Used Second Hand Smoke Exposure: No Use of substances other than those prescribed or required for medical reasons: No Are you DNR?: No Advance Directives: No Advance Directives Information Provided: Yes Advance Directives Date on File: 08/23/20 Current occupational status: retired Cognitive needs: No Hearing needs: No Vision needs: Yes Meds Allergies Allergy/AdvReac Type Severity Reaction Status Date / Time No Known Allergies Allergy Verified 03/26/23 15:04 [No Known Allergies*] Home Medications Medication Instructions Recorded Confirmed Last Taken Type aspirin 81 mg tablet,delayed 81 mg PO DAILY 03/16/21 04/06/23 04/03/23 History release allopurinol 300 mg tablet PO 04/05/23 Unknown History atorvastatin 40 mg tablet 40 mg PO DAILY 04/05/23 04/05/23 Unknown History naproxen 500 mg tablet 500 mg PO BID 04/05/23 04/05/23 04/03/23 History prednisone 10 mg tablet 40 mg PO DAILY 04/05/23 04/05/23 Unknown History tamsulosin 0.4 mg capsule 0.4 mg PO DAILY 04/05/23 04/05/23 Unknown History triamcinolone acetonide 0.1 % 1 appl topical BID-TID 04/05/23 04/05/23 Unknown History topical cream lisinopril 20 mg tablet 20 mg PO DAILY 04/06/23 04/06/23 04/06/23 History Exam Exam Date and Time: April 05, 2023 1422 Pertinent Lab Results Pertinent Lab Results: Laboratory Tests 12/12/22 12/12/22 09:02 09:02 WBC 10.5 Hgb 14.6 Hct 43.4 Plt Count 132 L Sodium 140 Potassium 4.4 Chloride 105 Carbon Dioxide 26 BUN 51 H Creatinine 1.46 H Narrative Narrative: EKG 03/2023 sinus rhythm 89/Min; PVCs; right bundle-branch block pattern; left ventricular hypertrophy; normal NC and corrected QT. ECHO 2020 Conclusions: -? 1.Normal LV systolic function with mild LVH with grade 1? ? ? diastolic dysfunction? 2. Mild mitral regurgitation ? 3. Normal RV systolic pressure ? 4. No gross pericardial effusion ? Coronary CTA reviewed from 03/2021.? He has nonobstructive disease in the LAD, RCA; in the PDA origin, suspected 50-69% stenosis; scattered calcification in the circumflex.? Overall, no hemodynamically significant lesions.? Stable from 2019.? Assessment and Plan Assessment Anesthesia Assessment: Chart Reviewed
[2023-04-06 09:15] VITALS: BMI 31.8
[2023-04-06 09:32] VITALS: BP 133/95; PULSE 83; RESP 18; TEMP 36.7; O2SAT 95
[2023-04-06] MEDS: Lactated Ringers 1,000 ML 50 ML IVCONT (09:38)
--- NOTE | 2023-04-06 11:06 | P.BOP_ITS ---
Brief Operative Note Date of Service: 04/06/23 Pre-op diagnosis: Change in Bowels Post-op diagnosis: other (Diverticulosis) Procedure: Colonoscopy to the cecum Surgeon: Tre Moody Anesthesia: MAC Was an Agriculture Instructor used for this Procedure?: No Estimated blood loss (mL): 0 Pathology: none sent Condition: stable Disposition: PACU
[2023-04-06 11:07] VITALS: BP 98/62; PULSE 74; RESP 16; TEMP 36.3; O2SAT 94
[2023-04-06 11:22] VITALS: BP 123/75; PULSE 81; RESP 14; O2SAT 95
[2023-04-06 11:30] VITALS: BP 143/84; PULSE 73; RESP 16; TEMP 36.9; O2SAT 95
--- NOTE | 2023-04-06 12:28 | OP_ITS ---
DATE OF SERVICE: 04/06/2023 SURGEON: Tre Moody MD INDICATIONS: The patient presents for evaluation of change in bowel habits and personal history of tubular adenoma of the colon. Full consent has been obtained from him for this, including risks of bleeding and perforation. PREOPERATIVE DIAGNOSIS: Change in bowel habits and personal history of tubular adenoma of the colon. POSTOPERATIVE DIAGNOSIS: PROCEDURE PERFORMED: Colonoscopy to the cecum. ESTIMATED BLOOD LOSS: COMPLICATIONS: ANESTHESIA: Monitored anesthesia care. ASSISTANTS: SPECIMENS: POSTOPERATIVE DIAGNOSES: Change in bowel habits and personal history of tubular adenoma of the colon, diverticulosis, and internal hemorrhoids. DESCRIPTION OF PROCEDURE: The patient was placed in the left lateral decubitus position. The digital rectal exam revealed no abnormalities. The Olympus video pediatric colonoscope was entered into the rectum and advanced to the cecum with the assistance of abdominal wall pressure. Once in the cecum, I did identify normal-appearing cecal pouch with appendiceal orifice and a normal-appearing ileocecal valve. There was transillumination of light deep in the right lower quadrant. The entire cecum appeared normal. The scope was slowly withdrawn assessing all mucosal surfaces carefully. Preparation was excellent. I did not visualize any sign of polyps, colitis, nor angiodysplasia. There was a moderate amount of diverticulosis in the sigmoid colon. In the rectum, scope was retroflexed visualizing internal hemorrhoids, but no other pathology. The rectal mucosa appeared normal. The scope was straightened and withdrawn from the patient. He tolerated the procedure well and was returned to the recovery area in stable condition. IMPRESSION: 1. Diverticulosis. 2. Internal hemorrhoids. PLAN: Given today's negative exam and his age, he would not need any further colonoscopy from a screening standpoint. He was advised to continue Metamucil and/or MiraLAX to try to keep his bowel movements more regular. If things are otherwise well, he will see me on a p.r.n. basis. This has been discussed with his son. Tre Moody MD RMLorena/ANTHONYL / [phone]
== END 2023-04-06 11:50 | disposition home or self-care (01) ==
PROVIDERS: PCP Internal Medicine; Visit Provider Internal Medicine
PROC: 0DJD8ZZ Inspection of Lower Intestinal Tract, Via Natural or Artificial Opening Endoscopic (ICD-10-PCS; CPT 45378; principal; 2023-04-06 10:00)
DX: R19.4 Change in bowel habit (principal); Z86.010 Personal history of colon polyps; Z80.0 Family history of malignant neoplasm of digestive organs; K57.30 Diverticulosis of large intestine without perforation or abscess without bleeding; K64.8 Other hemorrhoids; K59.00 Constipation, unspecified; R63.4 Abnormal weight loss; Z68.32 Body mass index [BMI] 32.0-32.9, adult; I10 Essential (primary) hypertension; N28.9 Disorder of kidney and ureter, unspecified; M10.9 Gout, unspecified; R21 Rash and other nonspecific skin eruption; Z79.1 Long term (current) use of non-steroidal anti-inflammatories (NSAID); Z79.82 Long term (current) use of aspirin; Z79.899 Other long term (current) drug therapy; Z87.891 Personal history of nicotine dependence
CPT/HCPCS: 45378

== ENCOUNTER → 2023-04-09 13:58 | Outpatient (REF) | payer MEDICARE, SELFPAY ==
--- NOTE | 2023-04-09 14:01 | CA_ITS ---
Transthoracic Echocardiogram Patient (Last, First, Middle): Bryce Yarbrough M Gender: Male Date of : 1945 Age: 77 Procedure Date: 04/09/2023 Procedure Type: Transthoracic Echocardiogram Location: OP Height: 180.34 cm Weight: 103.42 kg BSA: 2.23 m2 Heart Rate: 66 bpm BP: 145 / 80 mmHg Real Estate Investment Analyst: LAURIE Referring MD: Salvador Atkins MD Symptoms: I25.10 - Atherosclerotic heart disease of [place] coronary artery without... Study Quality: Adequate/Contrast ECG Rhythm: Sinus Conclusions: - The left ventricular systolic function is normal. The calculated ejection fraction is 66% by biplane method. - No obvious valvular pathology seen on this study. - There is mild dilatation of the ascending aorta measuring 4.00 cm. Findings Procedure Information Contrast agent, definity, is being given per protocol without apparent complications. Left Ventricle Normal left ventricular cavity size. There is moderately increased left ventricular wall thickness. The left ventricular systolic function is normal. The calculated ejection fraction is 66% by biplane method. There is no evidence of regional wall motion abnormalities. E/E prime ratio is between 8 and 15 consistent with indeterminate filling pressures. Evidence suggests grade I (mild) diastolic dysfunction. Right Ventricle Normal right ventricular cavity size and systolic function. Atria Both atria are normal in size. Aortic Valve There is a normal trileaflet aortic valve. There is mild calcification of the aortic valve. There is no aortic valve stenosis. There is no aortic valve regurgitation. Mitral Valve The mitral valve appears normal. There is trace mitral valve regurgitation. There is no mitral valve stenosis. Pulmonic Valve The pulmonic valve is likely normal. Tricuspid Valve There is mild tricuspid valve regurgitation. There is no evidence of pulmonary hypertension. Great Vessels There is mild dilatation of the ascending aorta measuring 4.00 cm. Venous The inferior vena cava is normal in size and collapses greater than 50% with inspiration. Pericardium/Pleural There is no evidence of pericardial effusion. Prior Study Comparison No significant change compared to prior study dated: 04/06/2021. Recommendations, Care & Conclusions No obvious valvular pathology seen on this study. Measurements 2D Linear Measurements IVSd: 1.43 0.6-0.9/0.6-1.0 cm LVIDd: 4.37 3.9-5.3/4.2-5.9 cm LVIDd Index: 1.96 2.4-3.2/2.2-3.1 cm/m2 LVIDs: 2.31 2.0-3.6 cm LVPWd: 1.33 0.7-1.1 cm LA Diam: 3.60 2.7-3.8/3.0-4.0 cm LAIDs Index: 1.61 1.5-2.3 cm/m2 LV Mass: 290.17 67-162/88-224 g LV Mass Index: 130.12 43-95/49-115 g/m2 LVOT Diam: 2.20 3.0+(-)1.3 cm 2D Systolic Function EF 4C: 63.40 >55% EF 2C: 64.40 >55% EF BiP: 66.00 >55% Mitral Valve MV Pk E: 0.73 MV PK A: 0.92 MV Decel Time: 249.00 E/A: 0.80 E'Lateral: 7.40 E'Medial: 4.68 E/E' Med: 15.60 E/E' Lat: 9.80 PHT: 73.00 MVA PHT: 3.01 Decel Lipscomb: 2.93 Aortic Valve AoV Pk Aly: 1.53 AoV Mn Aly: 0.99 AoV VTI: 0.31 AoV Pk Grad: 9.00 Aov Mn Grad: 5.00 DIONE Cont.VTI: 2.78 LVOT LVOT Pk Aly: 1.20 LVOT Mn Aly: 0.76 LVOT VTI: 0.23 LVOT Pk Grad: 6.00 LVOT Mn Grad: 3.00 LVOT Diam: 2.20 LVOT Area: 3.80 Diastolic Function MV Pk E: 0.73 MV Pk A: 0.92 E/A: 0.80 E'Medial: 4.68 E/E' Med: 15.60 E' Laterial: 7.40 E/E' Lat: 9.80 Right Ventricle TAPSE (mm): 17.80 TVS' Aly: 14.10 Tricuspid Valve TR Pk Aly: 2.30 TR Pk Grad: 21.00 RA Press: 3.00 RVSP: 24.00 Great Vessels Aorta Sinus of Valsalva: 3.80 2.0-3.5 cm Ao Asc: 4.00 2.1-3.4 cm Pulmonary Valve PV Pk Aly: 0.90 Peak PV Grad: 3.00 Updated in Other Vendor System with Status of Final Salvador Atkins MD electronically signed on 04/11/2023 10:30:59 AM with status of Final
== END ==
LOC: HO.CARD 13:58
PROVIDERS: PCP Internal Medicine; Visit Provider Internal Medicine
DX: G47.33 Obstructive sleep apnea (adult) (pediatric) (principal); I25.10 Atherosclerotic heart disease of native coronary artery without angina pectoris; R06.02 Shortness of breath
CPT/HCPCS: 93306; 95806; Q9957

== ENCOUNTER 2023-04-11 16:20 | Outpatient (REF) | payer MEDICARE, SELFPAY ==
[2023-04-11 16:51] LABS: MANUAL DIFF FLAG NO
[2023-04-11 17:24] LABS: Basophils Absolute Auto 0.1 X10*3/uL (0.0-0.2); Basophils Percent Auto 1.4 % (0-2); Eosinophils Absolute Auto 0.4 X10*3/uL (0.0-0.4); Eosinophils Percent Auto 5.6 % (0-4); Hematocrit 39.5 % (42.0-52.0); Hemoglobin 13.6 g/dl (14.0-18.0); Imm Gran Abs Auto 0.03 X10*3/uL (0.00-0.03); Imm Gran Pct Auto 0.5 % (0.0-0.4); Lymphocytes Absolute Auto 1.7 X10*3/uL (1.2-4.9); Lymphocytes Percent Auto 25.9 % (20-40); Mean Corpuscular HGB Conc 34.4 g/dl (31.0-36.0); Mean Corpuscular Hemoglobin 32.2 pg (27.0-33.0); Mean Corpuscular Volume 93.4 fL (80.0-98.0); Monocytes Absolute Auto 0.6 X10*3/uL (0.1-1.2); Monocytes Percent Auto 8.8 % (2-11); Neutrophils Absolute Auto 3.7 x10*3/uL (2.0-8.3); Neutrophils Percent Auto 57.8 % (45-73); Platelet Count 166 X10*3/uL (160-400); Red Blood Count 4.23 X10*6/uL (4.60-5.80); Red Cell Distribution Width 13.2 % (11.0-16.0); White Blood Count 6.5 X10*3/uL (4.8-10.8)
[2023-04-11 18:22] LABS: Erythrocyte Sedimentation Rate 11 MM/HR (0-15)
[2023-04-17 17:33] LABS: Immunoglobulin E 633 kU/L (<OR=114)
== END 2023-04-11 16:21 | disposition home or self-care (01) ==
LOC: HO.LAB 16:20
PROVIDERS: PCP Internal Medicine; Visit Provider Allergy & Immunology
DX: L30.9 Dermatitis, unspecified (principal); L85.3 Xerosis cutis; Z91.09 Other allergy status, other than to drugs and biological substances
CPT/HCPCS: 36415; 82785; 85025; 85652; 86003

== ENCOUNTER 2023-04-13 08:04 | Outpatient (REF) | payer MEDICARE, SELFPAY ==
[2023-04-20 14:18] LABS: Alpha-Tocopherol 7.1 mg/L (5.7-19.9); Beta-Gamma Tocopherol 1.1 mg/L (<=4.3)
== END 2023-04-13 08:05 | disposition home or self-care (01) ==
LOC: HO.LAB 08:04
PROVIDERS: PCP Internal Medicine; Visit Provider Allergy & Immunology
DX: L30.9 Dermatitis, unspecified (principal); L85.3 Xerosis cutis
CPT/HCPCS: 36415; 84446

== ENCOUNTER → 2023-04-25 14:30 | Outpatient (BNVA) | payer MEDICARE, SELFPAY | PROVIDERS: PCP Internal Medicine; Visit Provider Internal Medicine | DX: G47.33 Obstructive sleep apnea (adult) (pediatric) (principal); I27.20 Pulmonary hypertension, unspecified; I25.10 Atherosclerotic heart disease of native coronary artery without angina pectoris; E66.9 Obesity, unspecified; Z68.33 Body mass index [BMI] 33.0-33.9, adult | CPT/HCPCS: 99202 ==

== ENCOUNTER 2023-04-27 10:47 | Outpatient (REF) | payer MEDICARE, SELFPAY ==
[2023-04-27 12:33] LABS: B Type Natriuretic Peptide 47 pg/mL (<100)
[2023-04-27 12:37] LABS: Alanine Aminotransferase 19 U/L (0-40); Albumin Level 4.2 g/dL (3.5-5.0); Alkaline Phosphatase 61 U/L (39-117); Anion Gap 13 (12-20); Aspartate Amino Transferase 22 U/L (5-37); Bilirubin Total 1.4 mg/dL (0.0-1.0); Blood Urea Nitrogen 27 mg/dL (9-16); Calcium 10.4 mg/dL (8.4-10.2); Carbon Dioxide 25 mmol/L (22-29); Chloride 107 mmol/L (96-108); Estimated Glomerular Filt Rate > 60; Glucose Random 117 mg/dL (60-115); Sodium 141 mmol/L (135-145); Total Protein 6.4 g/dL (6.5-8.0)
== END 2023-04-27 10:48 | disposition home or self-care (01) ==
LOC: HO.LAB 10:47
PROVIDERS: Visit Provider Nurse Practitioner Family
DX: R60.9 Edema, unspecified (principal); N18.9 Chronic kidney disease, unspecified
CPT/HCPCS: 36415; 80053; 83880

== ENCOUNTER 2023-05-09 10:22 | Outpatient (REF) | payer MEDICARE, SELFPAY ==
[2023-05-09 17:23] LABS: Erythrocyte Sedimentation Rate 7 MM/HR (0-15)
== END 2023-05-09 10:23 | disposition home or self-care (01) ==
LOC: HO.LAB 10:22
PROVIDERS: PCP Internal Medicine; Visit Provider Allergy & Immunology
DX: L30.9 Dermatitis, unspecified (principal); L85.3 Xerosis cutis
CPT/HCPCS: 36415; 85652

== ENCOUNTER 2023-05-28 10:30 | Emergency (ER) | payer MEDICARE, SELFPAY ==
--- NOTE | ~2023-05-28 | XR_ITS ---
EXAMINATION: XR CHEST CLINICAL INFORMATION: Chills COMPARISON: 02/25/2022 TECHNIQUE: 2 views of the chest were obtained. FINDINGS: No significant abnormality is noted involving the heart, lungs, mediastinum, bony thorax or soft tissues. XR/XR chest 2V IMPRESSION: No acute disease
--- NOTE | ~2023-05-28 | CT_ITS ---
EXAMINATION: CT ABDOMEN AND PELVIS WITH CONTRAST CLINICAL INFORMATION: abdominal pain COMPARISON: 02/12/2023 TECHNIQUE: Multidetector volumetric imaging was performed from the superior aspect of the liver through the pubic symphysis following administration of 85 mL Omnipaque 300 intravenous contrast. Sagittal and coronal reformatted images were obtained on the technologist workstation.. This CT examination was performed using dose optimization techniques as appropriate, variously including the following: *Automated exposure control *Adjustment of mA and/or kV according to patient size (this includes techniques or standardized protocols for targeted exams where dose is matched to indication/reason for exam; i.e. extremities or head) *Use of iterative reconstruction technique DLP: 739 mGy-cm FINDINGS: LUNG BASES: The visualized lung bases are unremarkable. Although decompressed, there is concentric wall thickening of the distal esophagus and GE junction. Esophagitis could have this appearance and should be clinically correlated. LIVER, GALLBLADDER, AND BILIARY TREE: The liver is normal in size, shape, and attenuation. No focal hepatic lesion or biliary ductal dilatation is present. The gallbladder is unremarkable with no evidence of radiopaque gallstones, gallbladder wall thickening, or obvious pericholecystic inflammatory changes. PANCREAS: There is mild peripancreatic edema surrounding the atrophic pancreas. Sequela pancreatitis would be suspected. Correlation with amylase and lipase levels recommended. I do not appreciate any pancreatic ductal dilatation at this time. No significant peripancreatic fluid collection. SPLEEN: Unremarkable. ADRENAL GLANDS: Unremarkable. KIDNEYS AND URETERS: The kidneys are normal in size, shape, and attenuation. No hydronephrosis, hydroureter, or calculi seen. No perinephric stranding. BLADDER: Unremarkable. GASTROINTESTINAL TRACT: Colon is redundant with a few scattered colonic diverticula. I do not appreciate any colonic wall thickening or pericolonic inflammatory change. Visualized small bowel grossly unremarkable ABDOMINAL WALL: No significant hernia is appreciated. LYMPHOVASCULAR STRUCTURES: Tortuous calcified aorta with no aneurysmal dilatation appreciated PELVIC VISCERA: Unremarkable. OSSEOUS STRUCTURES: Multilevel degenerative changes in the spine. CT/CT abdomen pelvis w IV con IMPRESSION: 1. There is mild peripancreatic edema surrounding the atrophic pancreas. Sequela of pancreatitis would be suspected. Correlation with amylase and lipase levels recommended. 2. Although decompressed, there is concentric wall thickening of the distal esophagus and GE junction. Esophagitis could have this appearance and should be clinically correlated.
[2023-05-28 10:41] VITALS: BP 153/92; PULSE 84; RESP 14; TEMP 36.6; O2SAT 95; BMI 32.4
--- NOTE | 2023-05-28 12:02 | ED_ITS ---
HPI - General Adult General Chief complaint: Nausea/Vomiting/Diarrhea Stated complaint: headache/nausea/vomiting Time Seen by Provider: 05/28/23 13:56 Source: patient and family Mode of arrival: ambulatory Limitations: no limitations History of Present Illness HPI narrative: 77-year-old male history of gastritis with remote peptic ulcer disease history of chronic kidney disease sleep apnea BPH coronary artery disease depression chronic right hip pain arthritis to his back and shoulder obesity pulmonary hypertension hypertension hyperlipidemia presents to emergency department complaining of vomiting. He states the vomiting started last night. Patient lives alone he states last time he ate was a turkey sandwich and some ice cream. He denies any falls or injuries he denies fevers or chills he states he has been vomiting all night into today. Related Data Home Medications Medication Instructions Recorded Confirmed aspirin 81 mg tablet,delayed 81 mg PO DAILY 03/16/21 05/18/23 release atorvastatin 40 mg tablet 40 mg PO DAILY 04/05/23 05/18/23 tamsulosin 0.4 mg capsule 0.4 mg PO DAILY 04/05/23 05/18/23 allopurinol 300 mg tablet 150 mg PO DAILY 04/25/23 05/18/23 betamethasone dipropionate 0.05 % 1 appl topical BID 04/25/23 05/18/23 topical cream diphenhydramine 25 1 tab PO BEDTIME PRN 04/25/23 05/18/23 mg-acetaminophen 500 mg tablet (Tylenol PM Extra Strength) naproxen 500 mg tablet 500 mg PO DAILY 04/25/23 05/18/23 Previous Rx's Medication Instructions Recorded furosemide 40 mg tablet (Lasix) 40 mg PO DAILY #30 tabs 04/30/23 lisinopril 20 mg tablet 20 mg PO DAILY #90 tabs 04/30/23 Allergies Allergy/AdvReac Type Severity Reaction Status Date / Time No Known Allergies Allergy Verified 05/18/23 09:43 [No Known Allergies*] Review of Systems Review of Systems: Review of systems: General: Patient denies any fever chills recent illness or falls Musculoskeletal: Denies back pain or body aches or other injuries HEENT: denies headache, runny nose, ear pain Respiratory: denies shortness of breath, cough Cardiovascular: no chest pain or palpitations : denies dysuria, frequency Abdomen: No diarrhea but significant nausea vomiting denies abdominal pain Extremities: no swelling, no pain Skin: no diaphoresis Yes all other systems are reviewed and are negative PMFSH Past Medical History Medical History (Updated 05/28/23 @ 14:14 by Larry Daniel DO) Essential hypertension Gastric ulcer Gout HLD (hyperlipidemia) Hx of skin pruritus Obesity Obesity (BMI 30.0-34.9) GEOVANNI (obstructive sleep apnea) Pulmonary hypertension Renal insufficiency Surgical History H/O foot surgery History of cataract surgery Family History Family History Father No problems noted. Mother Colon cancer Sister Colon cancer Brother Stomach cancer Social History Social History Housing: House Alcohol intake: never Patient Tobacco Use Status: Former Tobacco user Quit Date: 50 Smoked in Last 30 Days: No e-Cigarette/Vaping Use: Never Used Second Hand Smoke Exposure: No Use of substances other than those prescribed or required for medical reasons: No Advance Directives: Yes Advance Directives on File: Yes Advance Directives Date on File: 08/23/20 service: No Current occupational status: retired Cognitive needs: No Hearing needs: No Vision needs: Yes Physical Exam ED Vital Signs: Vital Signs - 24 hr 05/28/23 10:41 05/28/23 12:43 05/28/23 14:02 Temperature 97.9 F 97.3 F Pulse Rate 84 67 80 Respiratory Rate 14 16 21 H Blood Pressure 153/92 H 183/114 H 171/117 H Pulse Oximetry 95 95 Oxygen Delivery Method Room Air 05/28/23 15:42 05/28/23 18:25 Temperature 97.8 F 98.2 F Pulse Rate 72 97 Respiratory Rate 14 18 Blood Pressure 213/128 H 173/111 H Pulse Oximetry 97 96 Oxygen Delivery Method Room Air Room Air BMI result Body Mass Index 32.4 General: Well-appearing well-nourished in no signs of distress HEENT: Normocephalic atraumatic Neck: No signs of JVD, no masses no tenderness or lymphadenopathy Cardiovascular: Regular rate and rhythm Respiratory: Clear to auscultation bilaterally Abdomen: Soft nontender no masses Extremities: Normal pedal pulses no signs of edema Skin: Dry warm no rashes Back: No tenderness full ROM Course Course Course Narrative: This is an RME: Additional HPI, ROS, PE not included below will be deferred to primary provider. patient is a 77 year old male presenting with coffee ground emesis and diarrhea. denies fever, chest pain, shortness of breath, numbness, tingling. Plan: labs Reevaluation(s) Reevaluation #1: Patient states he is not feeling any better after the Zofran and Pepcid patient continues and pain in his epigastric area patient has had no vomiting since getting medicated I did meet with the daughter again when we would evaluate his emesis there is some red specks I did and that we could check it with a gastroccult at certain places I do not have the card here do not think that it gives us lot of information. Is not going to change what the patient has been admitted since his hemoglobin is 16. Since his creatinine was 1.4 he has got a L of fluid all ordered a 2 L and I will check his creatinine at this time. Patient is not feeling better so I will try some Reglan Benadryl and Maalox. Time: 16:00 Reevaluation #2: Patient is sleeping on comfortably in his bed he states he feels no better when asked is. He has had no more vomiting he states his nausea is still present and now he has chills his pain that he has complained earlier has resolved. He is asking why he has not got a CT scan I examined his belly again he still has benign abdomen I explained they do not think that a CAT scan is going to tell use anything new but I am happy to get 1 he was adamant that he had have a CT scan. I will get a XR and CT at this time. Time: 18:00 Reevaluation #3: Complaining of a 10 out of 10 headache I will give toradol has CKD and improved with 2 liters of fluid I feel it is safe to get one dose. XR was negative. Now pending CT. Time: 18:39 Additional Reevaluation(s): 1999 Patient now feeling better still pending CT read. [address] is negative ? of pancreatitis I feel patient is safe to go home. Medications Administered Discontinued Medications Generic Name Dose Route Start Last Admin Trade Name Freq PRN Reason Stop Dose Admin Al Hydroxide/Mg Hydroxide 30 ml 05/28/23 15:57 05/28/23 16:59 Magnesium Hydrox/Alum Hydrox 30 Ml Oral.Susp PO 05/28/23 15:58 30 ml ONCE ONE Administration Diphenhydramine HCl 25 mg 05/28/23 15:57 05/28/23 16:58 Diphenhydramine Hcl 50 Mg/Ml Vial IVPUSH 05/28/23 15:58 25 mg ONCE ONE Administration Famotidine 20 mg 05/28/23 14:06 05/28/23 15:05 Famotidine/Pf 20 Mg/2 Ml Vial IVPUSH 05/28/23 14:07 20 mg ONCE ONE Administration Sodium Chloride 1,000 mls @ 999 mls/hr 05/28/23 14:15 05/28/23 16:06 Ns IV 05/28/23 15:15 Infused .Q1H1M LEON Infusion Sodium Chloride 1,000 mls @ 999 mls/hr 05/28/23 16:00 05/28/23 17:17 Ns IV 05/28/23 17:00 999 mls/hr .Q1H1M LEON Administration Iohexol 100 ml 05/28/23 18:52 05/28/23 18:53 Iohexol 350 Mg/Ml 100 Ml Infus..Btl IV 05/28/23 18:53 85 ml ONCE ONE Administration Ketorolac Tromethamine 15 mg 05/28/23 18:38 05/28/23 19:08 Ketorolac Tromethamine 15 Mg/Ml Vial IVPUSH 05/28/23 18:39 15 mg ONCE ONE Administration Metoclopramide HCl 10 mg 05/28/23 15:57 05/28/23 16:59 Metoclopramide Hcl 10 Mg/2 Ml Vial IVPUSH 05/28/23 15:58 10 mg ONCE ONE Administration Ondansetron HCl 4 mg 05/28/23 14:06 05/28/23 15:05 Ondansetron Hcl 4 Mg/2 Ml Vial IVPUSH 05/28/23 14:07 4 mg ONCE ONE Administration Medical Decision Making Medical Decision Making MDM Narrative: Patient with a story concerning for gastritis I will give the patient some Pepcid Zofran fluids CV negative patient feeling better also check labs for the Differential Diagnosis Differential Diagnoses: The differential diagnosis associated with the presenta tion includes Dehydration electrolyte abnormality acute kidney injury Food poisoning gastritis peptic ulcer disease is on the differential though less likely patient has a history of this I will send off labs Admission/Observation Consideration of admission/observation: Escalation of care including admission/observation considered Lab Data MDM Lab Attestation statement: I reviewed the patient's lab results. Patient does have elevated white cell count as well as an elevation in his creatinine I will give the patient a L of fluid and recheck his creatinine and p atient has pulmonary hypertension so I will hold off on giving him too much fluid. 05/28/23 12:32 05/28/23 12:32 Labs: Lab Results 05/28/23 05/28/23 05/28/23 Range/Units 12:32 12:32 12:32 WBC 17.4 H (4.8-10.8) X10*3/uL RBC 5.47 D (4.60-5.80) X10*6/uL Hgb 16.8 D (14.0-18.0) g/dl Hct 48.9 D (42.0-52.0) % MCV 89.4 (80.0-98.0) fL MCH 30.7 (27.0-33.0) pg MCHC 34.4 (31.0-36.0) g/dl RDW 12.5 (11.0-16.0) % Plt Count 221 D (160-400) X10*3/uL MPV 10.0 (9.4-12.4) fL Immature Gran % (Auto) 0.5 H (0.0-0.4) % Neut % (Auto) 85.6 H (45-73) % Lymph % (Auto) 6.6 L (20-40) % [place] % (Auto) 6.9 (2-11) % Eos % (Auto) 0.3 (0-4) % Baso % (Auto) 0.1 (0-2) % Lymph # (Auto) 1.1 L (1.2-4.9) X10*3/uL [place] # (Auto) 1.2 (0.1-1.2) X10*3/uL Eos # (Auto) 0.1 (0.0-0.4) X10*3/uL Baso # (Auto) 0.0 (0.0-0.2) X10*3/uL Abs Immat Gran (auto) 0.09 H (0.00-0.03) X10*3/uL Absolute Neuts (auto) 14.8 H (2.0-8.3) x10*3/uL Absolute Nucleated RBC 0.000 (0.0-0.012) X10*3/uL Nucleated RBC % (auto) 0.0 (0.0-0.2) /100WBC Sodium 141 (135-145) mmol/L Potassium 4.4 (3.3-5.1) mmol/L Chloride 102 (96-108) mmol/L Carbon Dioxide 22 (22-29) mmol/L Anion Gap 21 H (12-20) BUN 53 H (9-16) mg/dL Creatinine 1.40 (0.5-1.4) mg/dL Estim Creat Clear Calc 52.8 Estimated GFR 49 Random Glucose 152 H (60-115) mg/dL Calcium 11.0 H (8.4-10.2) mg/dL Magnesium 2.4 (1.6-2.6) mg/dL Total Bilirubin 1.8 H (0.0-1.0) mg/dL AST 21 (5-37) U/L ALT 23 (0-40) U/L Alkaline Phosphatase 72 (39-117) U/L Total Protein 8.4 H (6.5-8.0) g/dL Albumin 4.9 (3.5-5.0) g/dL Lipase 10 (8-78) U/L Urine Color Urine Appearance Urine pH (5.0-9.0) Ur Specific Redig (1.005-1.025) Urine Protein (Neg-Trace) mg/dL Urine Glucose (UA) (Negative) mg/dL Urine Ketones (Negative) mg/dL Urine Blood (Negative) Urine Nitrite (Negative) Ur Leukocyte Esterase (Negative) COVID-19 (ROBBI) Negative (Negative) COVID-19 Clin Com See Note Blood Type Antibody Screen 05/28/23 05/28/23 05/28/23 Range/Units 12:52 13:33 16:26 WBC (4.8-10.8) X10*3/uL RBC (4.60-5.80) X10*6/uL Hgb (14.0-18.0) g/dl Hct (42.0-52.0) % MCV (80.0-98.0) fL MCH (27.0-33.0) pg MCHC (31.0-36.0) g/dl RDW (11.0-16.0) % Plt Count (160-400) X10*3/uL MPV (9.4-12.4) fL Immature Gran % (Auto) (0.0-0.4) % Neut % (Auto) (45-73) % Lymph % (Auto) (20-40) % [place] % (Auto) (2-11) % Eos % (Auto) (0-4) % Baso % (Auto) (0-2) % Lymph # (Auto) (1.2-4.9) X10*3/uL [place] # (Auto) (0.1-1.2) X10*3/uL Eos # (Auto) (0.0-0.4) X10*3/uL Baso # (Auto) (0.0-0.2) X10*3/uL Abs Immat Gran (auto) (0.00-0.03) X10*3/uL Absolute Neuts (auto) (2.0-8.3) x10*3/uL Absolute Nucleated RBC (0.0-0.012) X10*3/uL Nucleated RBC % (auto) (0.0-0.2) /100WBC Sodium 142 (135-145) mmol/L Potassium 3.7 (3.3-5.1) mmol/L Chloride 103 (96-108) mmol/L Carbon Dioxide 23 (22-29) mmol/L Anion Gap 20 (12-20) BUN 48 H (9-16) mg/dL Creatinine 1.28 (0.5-1.4) mg/dL Estim Creat Clear Calc 57.7 Estimated GFR 54 Random Glucose 142 H (60-115) mg/dL Calcium 10.5 H (8.4-10.2) mg/dL Magnesium (1.6-2.6) mg/dL Total Bilirubin (0.0-1.0) mg/dL AST (5-37) U/L ALT (0-40) U/L Alkaline Phosphatase (39-117) U/L Total Protein (6.5-8.0) g/dL Albumin (3.5-5.0) g/dL Lipase (8-78) U/L Urine Color Yellow Urine Appearance Clear Urine pH 6.0 (5.0-9.0) Ur Specific Redig 1.010 (1.005-1.025) Urine Protein Trace (Neg-Trace) mg/dL Urine Glucose (UA) Negative (Negative) mg/dL Urine Ketones Negative (Negative) mg/dL Urine Blood Negative (Negative) Urine Nitrite Negative (Negative) Ur Leukocyte Esterase Negative (Negative) COVID-19 (ROBBI) (Negative) COVID-19 Clin Com Blood Type O Positive Antibody Screen NEGATIVE Independent Interpretation I performed an independent interpretation of an: CT Scan Interpretation: I do not appreciate any concerning things in the CT scan there is mild amount of peripancreatic edema but no signs of acute pancreatitis with lipase of 10 Independent Historian Clinical information obtained from an independent historian. History obtained from or confirmed by: Other His daughter who works as a nurse tongue most of the history. External Record Review External record reviewed: Inpatient record Social Determinants Patient?s care significantly limited by Social Determinants of Health including: Inadequate housing Patient lives alone he does look well this time will give Pepcid and fluids and reassess see if patient is safe to go home he does not have any signs of anemia does have some signs of dehydration. Core Measures AMI core measures followed: Yes Discharge Plan Discharge Clinical Impression: Vomiting, Acute dehydration, Acute kidney injury Patient Disposition: Home, Self-Care Instructions: Dehydration (ED), Acute Kidney Injury (DC), Acute Nausea and Vomi ting (ED) Additional Instructions: You were seen today for nausea vomiting. You were found to have dehydration with effects on your kidneys. This improved with fluids. You need to take the zofran as needed for nausea and follow up with your doctor. Prescriptions: No Action lisinopril 20 mg tablet 20 mg PO DAILY Qty: 90 1RF furosemide [Lasix] 40 mg tablet 40 mg PO DAILY Qty: 30 5RF atorvastatin 40 mg tablet 40 mg PO DAILY tamsulosin 0.4 mg capsule 0.4 mg PO DAILY allopurinol 300 mg tablet 150 mg PO DAILY naproxen 500 mg tablet 500 mg PO DAILY aspirin 81 mg tablet,delayed release (DR/EC) 81 mg PO DAILY diphenhydramine-acetaminophen [Tylenol PM Extra Strength] 25-500 mg tablet 1 tab PO BEDTIME PRN betamethasone dipropionate 0.05 % cream 1 appl topical BID
[2023-05-28 12:43] VITALS: BP 183/114; PULSE 67; RESP 16; TEMP 36.3; O2SAT 95
--- NOTE | 2023-05-28 12:58 | PC.NURSE ---
pt a&ox3, respirations equal and unlabored. normal sinus on tele. skin pink, warm and dry. abdomen soft, non tender with active bowel sounds in all 4 quadrants. nausea and vomiting reported. emesis appears coffee ground colored. minimal bilateral edema, left greater than right +1. pt reports no pain.
[2023-05-28 14:02] VITALS: BP 171/117; PULSE 80; RESP 21
--- NOTE | 2023-05-28 14:11 | ECG_ITS ---
Test Reason : N/V Blood Pressure : / mmHG Vent. Rate : 074 BPM Atrial Rate : 074 BPM P-R Int : 176 ms QRS Dur : 124 ms QT Int : 434 ms P-R-T Axes : 036 -39 -05 degrees QTc Int : 481 ms Normal sinus rhythm Left axis deviation Left ventricular hypertrophy with QRS widening ( R in aVL , Fabrice product , Romhilt-Mckeon ) Nonspecific ST abnormality Abnormal ECG When compared with ECG of 20-JUN-2006 07:52, Vent. rate has increased BY 27 BPM T wave amplitude has decreased in Anterior leads QT has lengthened Referred By: Larry Daniel Electronically Signed By:SACHIN JAMESON MD
[2023-05-28 15:42] VITALS: BP 213/128; PULSE 72; RESP 14; TEMP 36.6; O2SAT 97
--- NOTE | 2023-05-28 15:47 | PC.NURSE ---
pt a&ox3, vss aside from hypertension (213/128), pt states that he has a new onset pain increase of a 5/10 pain located in his upper abdomen/lower chest area, pt resting comfortably with the lights dimmed, call nickerson placed within reach, will continue to monitor.
[2023-05-28 16:56] LABS: Anion Gap 20 (12-20); Blood Urea Nitrogen 48 mg/dL (9-16); Calcium 10.5 mg/dL (8.4-10.2); Carbon Dioxide 23 mmol/L (22-29); Chloride 103 mmol/L (96-108); Creatinine Clr Calc Pharmacy 57.7; Estimated Glomerular Filt Rate 54; Glucose Random 142 mg/dL (60-115); Potassium 3.7 mmol/L (3.3-5.1); Sodium 142 mmol/L (135-145)
--- NOTE | 2023-05-28 17:03 | PC.NURSE ---
medication administered per provider order.
[2023-05-28 18:25] VITALS: BP 173/111; PULSE 97; RESP 18; TEMP 36.8; O2SAT 96
[2023-05-28] MEDS: iohexoL 350 MG/ML 100 ML INFUS..BTL IV (18:53)
[2023-05-28] MEDS: Ketorolac Tromethamine 15 MG/ML VIAL IVPUSH (19:08)
--- NOTE | 2023-05-28 19:09 | PC.NURSE ---
pt states a 4/10 headache. tramadol administered per provider ordered.
[2023-05-28 20:49] VITALS: BP 166/97; PULSE 85; RESP 17; TEMP 36.7; O2SAT 94
== END 2023-05-28 21:04 | disposition home or self-care (01) ==
PROVIDERS: Emergency Provider Student in an Organized Health Care Education/Training Program
DX: E86.0 Dehydration (principal); R11.2 Nausea with vomiting, unspecified; R19.7 Diarrhea, unspecified; R51.9 Headache, unspecified; R10.2 Pelvic and perineal pain; R94.31 Abnormal electrocardiogram [ECG] [EKG]; Z20.822 Contact with and (suspected) exposure to COVID-19; Z20.828 Contact with and (suspected) exposure to other viral communicable diseases; Z79.899 Other long term (current) drug therapy
CPT/HCPCS: 36415; 71046; 74177; 80048; 80053; 81003; 83690; 83735; 85025; 86850; 86900; 86901; 87635; 93005; 96361; 96374; 96375; 99284; 99285; J1200; J1885; J2405; J2765; Q9967

== ENCOUNTER 2023-06-08 14:27 | Outpatient (AMB) | payer MEDICARE, SELFPAY ==
--- NOTE | 2023-06-08 14:30 | MHC.PC.OV ---
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 Accompanied by: Self / Same As Patient Allergies No Known Allergies [No Known Allergies*] Allergy (Verified 06/08/23 14:34) Medication List - Last Reconciled 06/11/23 by Irving Valentin MD allopurinol 150 mg PO DAILY aspirin 81 mg PO DAILY atorvastatin 40 mg PO DAILY betamethasone dipropionate 0.05% 1 appl topical BID carvedilol (Coreg) 3.125 mg PO BID diphenhydramine-acetaminophen 25-500 mg (Tylenol PM Extra Strength) 1 tab PO BEDTIME PRN furosemide (Lasix) 40 mg PO DAILY lisinopril 20 mg PO DAILY naproxen 500 mg PO DAILY ondansetron 4 mg PO Q6H tamsulosin 0.4 mg PO DAILY Tobacco use date assessed: 06/08/23 Fall risk assessment: No Falls in past year Last assessed Fall Risk: 06/08/23 Dental Screening Dental Screen Date: 06/08/23 Did you have a dental visit in the last 12 months?: Yes Did you have a dental problem in the last 6 months where you did not have access to dental care?: No Was dental information given to patient?: Patient has dentist HPI [facility] 06/03/23 Dehydration HPI Details admitted with dehydration due to gastroenteritis; recovered [facility] Medical History (Updated 06/08/23 @ 14:50 by Irving Valentin MD) Essential hypertension Gastric ulcer Gout HLD (hyperlipidemia) Hx of skin pruritus Obesity Obesity (BMI 30.0-34.9) GEOVANNI (obstructive sleep apnea) Pulmonary hypertension Renal insufficiency Surgical History H/O foot surgery History of cataract surgery Family History Father No problems noted. Mother Colon cancer Sister Colon cancer Brother Stomach cancer Social History Housing: House Alcohol intake: never Patient Tobacco Use Status: Former Tobacco user Quit Date: 50 e-Cigarette/Vaping Use: Never Used Second Hand Smoke Exposure: No Advance Directives Date on File: 08/23/20 service: No Current occupational status: retired Cognitive needs: No Hearing needs: No Vision needs: Yes Questionnaire PHQ-9 Over the last 2 weeks, how often have you been bothered by any of the following problems? 1. Little interest or pleasure in doing things: not at all 2. Feeling down, depressed, or hopeless: not at all 3. Trouble falling or staying asleep, or sleeping too much: not at all 4. Feeling tired or having little energy: not at all 5. Poor appetite or overeating: not at all 6. Feeling bad about yourself - or that you are a failure or have let yourself or your family down: not at all 7. Trouble concentrating on things, such as reading the newspaper or watching television: not at all 8. Moving or speaking so slowly that other people could have noticed. Or the opposite - being so fidgety or restless that you have been moving around a lot more than usual: not at all 9. Thoughts that you would be better off or of hurting yourself in some way: not at all Total score: 0 Depression Screening Interpretation: Negative Source: Developed by Drs. Tre Salvador, Ruth Conrad, Talib Gregory and colleagues, with an educational arnoldo from [employer] ([employer]). Thrive Questionnaire Date Thrive assessed: 06/08/23 I am a: Patient What is your living situation today?: I have a steady place to live Within the past 12 months, did the food you bought not last and you didn't have the money to get more?: Never true Within the past 12 months, did you worry whether your food would run out before you got money to buy more?: Never true Do you have trouble paying for medicines?: No Do you have trouble getting transportation to medical appointments?: No Do you have trouble paying your heating and electricity bill?: No Do you have trouble taking care of your child, family member or friend?: No Do you have trouble with day-to-day activities such as bathing, preparing meals, shopping, managing finances, etc.?: No Are you currently unemployed and looking for a job?: No Are you interested in more education?: No Currently or been in a relationship where the following occur: no concerns reported AUDIT C Alcohol Use Questionnaire (AUDIT-C) 1. How often do you have a drink containing alcohol?: Never Total Score: 0 RACHEL-7 AMB Questionnaire RACHEL-7 Date RACHEL - 7 assessed: 06/08/23 Feeling nervous, anxious, or on edge: 0 = Not at all Not being able to stop or control worryin = Not at all Worrying too much about different things: 0 = Not at all Trouble relaxin = Not at all Being so restless that it is hard to sit still: 0 = Not at all Becoming easily annoyed or irritable: 0 = Not at all Feeling afraid as if something awful might happen: 0 = Not at all Total RACHEL-7 score (0-4 normal; 5-9 mild; 10-14 moderate; 15-21 severe): 0 Source: Developed by Drs. Tre Salvador, Ruth Conrad, Talib Gregory and colleagues, with an educational arnoldo from [employer] ([employer]). Review of Systems Const Denies chills, Denies headache(s) and Denies weight loss ENT Denies headache(s) Card Denies chest pain, Denies syncope, Denies irregular heart rhythm and Denies dyspnea Resp Denies chest congestion, Denies cough and Denies dyspnea GI Denies abdominal pain, Denies change in stool character, Denies nausea and Denies vomiting Musc Denies deformity and Denies joint swelling Neuro Denies syncope and Denies headache(s) Physical exam (Primary Care) Vital Signs: Last Vital Signs Pulse 71 06/08/23 14:31 BP 98/52 L 06/08/23 14:31 Pulse Ox 97 06/08/23 14:31 Oxygen Delivery Method Room Air 06/08/23 14:31 BMI result Body Mass Index 30.4 Tobacco/Smoking Status: Tobacco use Status Tobacco use date assessed 06/08/23 06/08/23 14:34 Patient Tobacco Use Status Former Tobacco user 06/08/23 14:34 Tobacco use type 03/26/23 15:33 e-Cigarette/Vaping Use Never Used 06/08/23 14:34 PHQ-9: PHQ-9 Score PHQ-9: Total score 0 07/21/23 14:41 Depression Screening Interpretation: Negative Thrive Assessment: Date of Thrive Assessment Date Thrive assessed 06/08/23 06/08/23 14:41 Currently or been in a relationship where the following occur: no concerns reported Const General: cooperative, comfortable and no acute distress Resp Effort & Inspection: normal respiratory effort Auscultation: clear to auscultation bilaterally Percussion: percussion normal Cardio Jugular venous distension: no JVD Rate: regular rate Rhythm: regular rhythm GI Inspection: Yes normal to inspection Assessment and Plan Assessment & Plan (1) Gastroenteritis: Code(s): K52.9 - Noninfective gastroenteritis and colitis, unspecified Plan: resolved Orders: Orders Basic Metabolic Panel 06/08/23 E86.0 - Dehydration Coding Level of Care Code Est Pt Level 3 (19528) Diagnoses Gastroenteritis K52.9
[2023-06-08 14:31] VITALS: BP 98/52; PULSE 71; O2SAT 97; BMI 30.4
== END 2023-06-08 14:57 | disposition home or self-care (01) ==
PROVIDERS: Visit Provider Internal Medicine
DX: K52.9 Noninfective gastroenteritis and colitis, unspecified (principal)
CPT/HCPCS: 99213

== ENCOUNTER 2023-06-08 15:08 | Outpatient (REF) | payer MEDICARE, SELFPAY ==
[2023-06-08 16:52] LABS: Anion Gap 14 (12-20); Blood Urea Nitrogen 38 mg/dL (9-16); Calcium 9.8 mg/dL (8.4-10.2); Carbon Dioxide 24 mmol/L (22-29); Chloride 103 mmol/L (96-108); Estimated Glomerular Filt Rate 49; Glucose Random 100 mg/dL (60-115); Potassium 4.6 mmol/L (3.3-5.1); Sodium 136 mmol/L (135-145)
== END 2023-06-08 15:09 | disposition home or self-care (01) ==
LOC: HO.LAB 15:08
PROVIDERS: PCP Internal Medicine; Visit Provider Internal Medicine
DX: E86.0 Dehydration (principal)
CPT/HCPCS: 36415; 80048

== ENCOUNTER 2023-06-13 09:28 | Outpatient (AMB) | payer MEDICARE, SELFPAY ==
--- NOTE | 2023-06-13 09:31 | MHC.OFFVIS ---
Intake Vital Signs 06/13/23 09:34 Height 5 ft 11 in Weight 220 lb 7.396 oz BMI 30.7 BP 126/78 Blood Pressure Location Lt brachial Position Sitting Pulse 87 Pulse Source Pulse Oximeter Pulse Oximetry (%) 96 Oxygen Delivery Method Room Air Intake Visit Reasons: marcy Intake Note: Patient states here using CPAP but waking up in the night. Feeling weakness and tired. 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 Allergies No Known Allergies [No Known Allergies*] Allergy (Verified 06/13/23 09:40) Medication List - Last Reconciled 06/13/23 by Karla Kwan MD allopurinol 150 mg PO DAILY aspirin 81 mg PO DAILY atorvastatin 40 mg PO DAILY betamethasone dipropionate 0.05% 1 appl topical BID carvedilol (Coreg) 3.125 mg PO BID CPAP (CPAP Machine/Device) As directed diphenhydramine-acetaminophen 25-500 mg (Tylenol PM Extra Strength) 1 tab PO BEDTIME PRN furosemide (Lasix) 40 mg PO DAILY lisinopril 20 mg PO DAILY ondansetron 4 mg PO Q6H PRN tamsulosin 0.4 mg PO DAILY Do you need a note to return to daycare/school/sports/work: No HPI marcy HPI Details 77 years old very pleasant gentleman is here for follow-up. He did get CPAP a few weeks ago and has been trying to use it every night. Still having some issue , because he has to wake up to go to the bathroom a few times during the night. He does use for 1st 2 hours of so and then when he puts it back on he has difficulty to fall asleep. He does and use for a few more hours the for the rest of the night. He is trying to get used to the CPAP. Overall he does feel better, Denies any daytime sleepiness. He has had some other issues especially, that of gastritis/dehydration for which he was seen in the emergency room, of [facility] on 05/28 and subsequently hospitalized in [place] for a few days. Now he is feeling back to his usual baseline. [facility] Medical History Essential hypertension Gastric ulcer Gout HLD (hyperlipidemia) Hx of skin pruritus Obesity Obesity (BMI 30.0-34.9) MARCY (obstructive sleep apnea) Pulmonary hypertension Renal insufficiency Surgical History H/O foot surgery History of cataract surgery Family History Father No problems noted. Mother Colon cancer Sister Colon cancer Brother Stomach cancer Social History Housing: House Alcohol intake: never Patient Tobacco Use Status: Former Tobacco user Quit Date: 48 e-Cigarette/Vaping Use: Never Used Second Hand Smoke Exposure: No Advance Directives Date on File: 08/23/20 service: No Current occupational status: retired Cognitive needs: No Hearing needs: No Vision needs: Yes Review of Systems Const All systems reviewed & are unremarkable except as noted in HPI and below Eyes Reports no additional complaints ENT Reports no additional complaints Card Denies chest pain, Denies irregular heart rhythm, Reports leg edema and Reports dyspnea on exertion Resp Denies cough, Reports dyspnea on exertion and Denies wheezing GI Reports no additional complaints Reports nocturia Musc Reports no additional complaints and Reports abnormal gait (GAIT IS SLIGHTLY SLOW AND HE USES A CANE) Skin/Breast Reports rash (NONSPECIFIC SKIN CONDITION SINCE LAST YEAR) Neuro Reports abnormal gait (GAIT IS SLIGHTLY SLOW AND HE USES A CANE) Psych Reports depression (MILD) Endo Reports no additional complaints Jose Antonio/Lymph Reports no additional complaints Aller/Immun Denies wheezing Physical Exam Vital Signs: Last Vital Signs Pulse 87 06/13/23 09:34 BP 126/78 06/13/23 09:34 Pulse Ox 96 06/13/23 09:34 Oxygen Delivery Method Room Air 06/13/23 09:34 BMI result Body Mass Index 30.7 Const Other: HE IS MODERATELY OBESE, SLOW IN WALKING. General: comfortable, no acute distress, alert and awake Orientation/consciousness: patient oriented x3 HEENT Head: Yes normal to inspection General nose exam: No nasal polyps present and No nasal discharge present Face and sinus: Yes sinuses nontender Mouth: oropharynx abnormals (MODERATELY NARROW AND CROWDED. MALLAMPATI SCALE 3.) Throat: Yes posterior oropharynx normal Eyes General: appearance normal, both eyes and all related structures Neck Neck: Yes normal visual inspection, Yes no lymphadenopathy, Yes trachea midline, Yes no JVD and Yes other (NECK CIRCUMFERENCE 17 IN) Thyroid: Thyroid normal Chest Chest palpation & inspection: normal inspection of the chest, normal palpation of entire chest wall and no tenderness Resp Other: PERCUSSION NOTE IS RESONANT, HE HAS EQUAL BREATH SOUNDS ON BOTH SIDES. BREATH SOUNDS ARE VESICULAR. NO WHEEZES OR CREPITATIONS ARE HEARD. Cardio Palpation: normal PMI Rate: regular rate Rhythm: regular rhythm Heart sounds: no gallops and no murmurs GI Palpation (GI): Soft to palpation, nontender, No hepatosplenomegaly present and no masses Auscultation: normal bowel sounds Back/Spine/Pelvis Thoracic/Lumbar Spine: thoracic and lumbar spine normal to inspection Skin General skin exam: other (HE HAS GENERALIZED, NONSPECIFIC RASH ON HIS TRUNK AND ALL ARMS.) Neuro General: patient oriented x3, No gait normal (MOSTLY NORMAL BUT SLOW AND HE HAS TO USE CANE) and no focal motor deficits Cranial nerves: Yes CN's II-XII intact bilaterally Extrem General: Yes normal to inspection, Yes no calf tenderness and Yes edema (only trace of edema around the ankles ) Psych Appearance: grossly normal and well kempt Speech and movement: Normal speech and movement present Affect: Sad affect present Results Reviewed Results Reviewed: COMPLIANCE REPORT , SINCE IS REVIEWED. HE USED 24/30 NIGHTS, , 80% OF THE NIGHTS. USE MORE THAN 4 HOURS FOR AT LEAST 18 DAYS AND LESS THAN 4 HOURS FOR 6 DAYS. AVERAGE USAGE PER NIGHT IS 4 HOURS 58 MINUTES. THE PRESSURE USED MOSTLY 12.2 CM. THERE IS MODERATE AMOUNT OF AIR LEAK. RESIDUAL AHI IS 11.2, IS STILL ABNORMAL. Assessment & Plan Assessment & Plan (1) Obesity (BMI 30.0-34.9): Comment: PATIENT IS MODERATELY OBESE, THIS IS PARTLY DUE TO EDEMA OF LOWER EXTREMITIES. HE IS NOT FIT TO DO MUCH EXERCISE OR EVEN WALK. SO I DO NOT EXPECT HIM TO LOSE MUCH WEIGHT, EXCEPT WITH DIURESIS. Code(s): E66.9 - Obesity, unspecified (2) MARCY (obstructive sleep apnea): Comment: PATIENT HAS STARTED THE CPAP THERAPY. VOICES , SOME DIFFICULTY IN SLEEPING, BUT HE DOES USE FOR AT LEAST 3-4 HOURS EVERY NIGHT. HAD A GOOD DISCUSSION AND ENCOURAGED HIM TO USE FOR AT LEAST 4-5 HOURS EVERY NIGHT. I THINK THAT HE DEFINITELY HAS IS IMPROVED WITH THE USAGE OF CPAP. Code(s): G47.33 - Obstructive sleep apnea (adult) (pediatric) Coding Level of Care Code Est Pt Level 3 (30438) Diagnoses Obesity (BMI 30.0-34.9) E66.9 MARCY (obstructive sleep apnea) G47.33
[2023-06-13 09:34] VITALS: BP 126/78; PULSE 87; O2SAT 96; BMI 30.7
== END 2023-06-13 09:55 | disposition home or self-care (01) ==
PROVIDERS: PCP Internal Medicine; Visit Provider Internal Medicine
DX: E66.9 Obesity, unspecified (principal); G47.33 Obstructive sleep apnea (adult) (pediatric)
CPT/HCPCS: 99213

== ENCOUNTER → 2023-06-13 09:28 | Outpatient (BNVA) | payer MEDICARE, SELFPAY | PROVIDERS: PCP Internal Medicine; Visit Provider Internal Medicine | DX: G47.33 Obstructive sleep apnea (adult) (pediatric) (principal); E66.9 Obesity, unspecified; Z68.30 Body mass index [BMI] 30.0-30.9, adult | CPT/HCPCS: 99212 ==

== ENCOUNTER 2023-06-15 10:35 | Outpatient (AMB) | payer MEDICARE, SELFPAY ==
--- NOTE | 2023-06-15 10:49 | MHC.OFFVIS ---
Intake Intake Visit Reasons: 6m folllow up/PVR Intake Note: Patient is present for follow up PVR/BPH Urology Medications: tamsulosin Blood thinner: aspirin PVR: 0ml's Fancy Stitcher Required: No Accompanied by: Daughter Allergies No Known Allergies [No Known Allergies*] Allergy (Verified 06/20/23 07:26) Medication List - Last Reconciled 06/20/23 by MAY Young allopurinol 150 mg PO DAILY aspirin 81 mg PO DAILY atorvastatin 40 mg PO DAILY betamethasone dipropionate 0.05% 1 appl topical BID carvedilol (Coreg) 3.125 mg PO BID cetirizine (Zyrtec) 10 mg PO DAILY PRN CPAP (CPAP Machine/Device) As directed diphenhydramine-acetaminophen 25-500 mg (Tylenol PM Extra Strength) 1 tab PO BEDTIME PRN tamsulosin 0.4 mg PO DAILY HPI HPI Comments History of Present Illness Details Bryce Alvarez is a pleasant 77-year-old male patient of Dr. Valentin. He has a past medical history of hypertension, gastric ulcer, gout, hyperlipidemia, obesity, GEOVANNI, pulmonary hypertension, and renal insufficiency. He presents to the office today for follow-up regarding his benign prostatic hyperplasia. When asked he reports to be doing overall well. Patient reports 0.4 mg flomax to be working well for him. When asked patient denies urinary urgency, urinary frequency, incontinence, nocturia, hematuria, dysuria, foul smelling urine, changes to urinary stream, flank pain, fever, and or chills. He is happy with his current voiding parameters on flomax daily. Otherwise patient denies any urinary issues or concerns at this time. In office urinalysis within normal limits. PVR 0 mL. Patient reports following up with PSAs with primary care provider. In review of patient's chart it appears patient with PSA historically between 1.5 and 2.2. WILLY offered however deferred. [facility] Medical History Essential hypertension Gastric ulcer Gout HLD (hyperlipidemia) Hx of skin pruritus Obesity Obesity (BMI 30.0-34.9) GEOVANNI (obstructive sleep apnea) Pulmonary hypertension Renal insufficiency Surgical History H/O foot surgery History of cataract surgery Family History Father No problems noted. Mother Colon cancer Sister Colon cancer Brother Stomach cancer Social History Housing: House Alcohol intake: never Patient Tobacco Use Status: Former Tobacco user Quit Date: 48 e-Cigarette/Vaping Use: Never Used Second Hand Smoke Exposure: No Advance Directives Date on File: 08/23/20 service: No Current occupational status: retired Cognitive needs: No Hearing needs: No Vision needs: Yes Review of Systems Const Reports as per HPI Eyes Reports no additional complaints ENT Reports no additional complaints Card Reports as per HPI Resp Reports as per HPI GI Reports as per HPI Reports as per HPI Neuro Reports no additional complaints Psych Reports no additional complaints Endo Reports no additional complaints Jose Antonio/Lymph Reports no additional complaints Aller/Immun Reports no additional complaints Physical Exam Const General: cooperative, healthy appearing, comfortable, no acute distress, well developed, alert and awake Nutritional Appearance: average body habitus Orientation/consciousness: patient oriented x3 Limitations: ambulation with cane HEENT Head: Yes normal to inspection, Yes normocephalic and Yes atraumatic Ears: hearing grossly normal bilaterally Eyes General: appearance normal, both eyes and all related structures Neck Neck: Yes normal visual inspection and Yes trachea midline Chest Chest palpation & inspection: normal inspection of the chest Resp Effort & Inspection: normal respiratory effort and able to speak in complete sentences Cardio Rhythm: regular rhythm GI Inspection: Yes normal to inspection and Yes Abdominal panniculus present General: Yes no CVA tenderness Back/Spine/Pelvis Back: no CVA tenderness Skin General skin exam: no rashes or lesions noted Neuro General: patient oriented x3 Extrem General: Yes normal to inspection Psych Appearance: grossly normal and well kempt Mental Status: mental status grossly normal Speech and movement: Normal speech and movement present and Clear speech present Affect: normal affect Attitude: cooperative Thought process: Normal thought process present Thought content: Normal thought content present Insight: Good insight present (Psych) Judgement: Good judgement present (Psych) Office Procedures Post Void Residual Post Residual Void Post Void Residual (PVR): 0 [id number] Void Residual by ultrasound Results AMB Urinalysis, Automated UA Leukoctes 0 Maira/uL Last Edit by Kathryn Pelletier on 06/15/23 11:15 UA Nitrite Last Edit by [employer] on 06/15/23 11:15 UA Urobilinogen 0.2 mg/dL Last Edit by [employer] on 06/15/23 11:15 UA Protein 0 mg/dL Last Edit by [employer] on 06/15/23 11:15 UA pH 6.0 Last Edit by [employer] on 06/15/23 11:15 UA Blood 0 Mundo/uL Last Edit by [employer] on 06/15/23 11:15 UA Specific [place] 1.020 Last Edit by [employer] on 06/15/23 11:15 UA Ketone Negative Last Edit by [employer] on 06/15/23 11:15 UA Bilirubin 0 mg/dL Last Edit by [employer] on 06/15/23 11:15 UA Glucose 0 mg/dL Last Edit by [employer] on 06/15/23 11:15 Results Reviewed Results Reviewed: Laboratory Last Values Urine pH (Auto) 6.0 06/15/23 11:14 Specific [place] (Auto) 1.020 06/15/23 11:14 Urine Protein (Auto) 0 mg/dL 06/15/23 11:14 Glucose (UA)(Auto) 0 mg/dL 06/15/23 11:14 Urine Ketones (Auto) Negative 06/15/23 11:14 Urine Blood (Auto) 0 Mundo/uL 06/15/23 11:14 Urine Bilirubin (Auto) 0 mg/dL 06/15/23 11:14 Urine Urobilinogen (Auto) 0.2 mg/dL 06/15/23 11:14 Leukocyte Esterase (Auto) 0 Maira/uL 06/15/23 11:14 Assessment & Plan Assessment & Plan (1) BPH (benign prostatic hyperplasia): Code(s): N40.0 - Benign prostatic hyperplasia without lower urinary tract symptoms Plan In office urinalysis results reviewed with the patient today. PVR 0 mL. Patient reports to be happy with current voiding parameters on 0.4 mg of Flomax daily. Will obtain PSA as discussed. WILLY offered however deferred Continue Flomax 0.4 mg daily as discussed and prescribed. Follow-up in 6 months with PVR and lab to be completed prior; or sooner with any issues, concerns, and or questions. Orders: Orders Prostate Specific Antigen 06/15/23 N40.0 - Benign prostatic hyperplasia without lower urinary tract symptoms AMB Urinalysis Automated 06/15/23 Z13.9 - Encounter for screening, unspecified AMB Post Void Residual by ultrasound 06/15/23 N13.8 - Other obstructive and reflux uropathy, N40.1 - Benign prostatic hyperplasia with lower urinary tract symptoms Patient Instructions: The patient had an opportunity to ask questions regarding the treatment plan. All questions were answered. Physical exam, labs, and imaging were discussed and reviewed in detail. As well as risks, benefits, and discussion of treatment choices. No major barriers to understanding were identified. The patient expressed understanding and agreement with the above treatment plan. The patient was made aware they should contact our office by phone for worsening of their current condition, the appearance of new symptoms, or with any questions or concerns. Compliance is encouraged with any medications and follow up testing that is ordered. It is a privilege to be allowed the opportunity to participate in? your urological care.? Again, if you have any questions or concerns If you have any questions or concerns please do not hesitate to contact me. The office is [phone]. This note is constructed using voice recognition software. While every effort has been made to ensure accuracy video game producer errors may have been included. Yours sincerely, MAY Young Coding Level of Care Code Est Pt Level 3 (44167) Diagnoses BPH (benign prostatic hyperplasia) N40.0 CPT Codes Post Residual Void - PVR CPT Code: 37199-Zuzo Void Residual by ultrasound ([id number])
== END 2023-06-15 11:39 | disposition home or self-care (01) ==
PROVIDERS: Visit Provider Nurse Practitioner Family
DX: N40.0 Benign prostatic hyperplasia without lower urinary tract symptoms (principal)
CPT/HCPCS: 99213

== ENCOUNTER → 2023-06-15 10:35 | Outpatient (BNVA) | payer MEDICARE, SELFPAY | PROVIDERS: Visit Provider Nurse Practitioner Family | DX: N40.0 Benign prostatic hyperplasia without lower urinary tract symptoms (principal); Z79.82 Long term (current) use of aspirin; Z79.899 Other long term (current) drug therapy | CPT/HCPCS: 51798; 99212 ==

== ENCOUNTER 2023-06-19 09:47 | Outpatient (AMB) | payer MEDICARE, SELFPAY ==
--- NOTE | 2023-06-19 09:48 | A.OFFVIS_ITS ---
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: No Allergies No Known Allergies [No Known Allergies*] Allergy (Verified 06/19/23 09:57) Medication List - Last Reconciled 06/19/23 by AYAD Vela allopurinol 150 mg PO DAILY aspirin 81 mg PO DAILY atorvastatin 40 mg PO DAILY betamethasone dipropionate 0.05% 1 appl topical BID carvedilol (Coreg) 3.125 mg PO BID cetirizine (Zyrtec) 10 mg PO DAILY PRN CPAP (CPAP Machine/Device) As directed diphenhydramine-acetaminophen 25-500 mg (Tylenol PM Extra Strength) 1 tab PO BEDTIME PRN tamsulosin 0.4 mg PO DAILY HPI Hospital Follow Up ([place]) HPI Details Bryce is a 77-year-old male with past medical history of hypertension, hyperlipidemia, mild obesity, coronary artery disease. He had ER evaluation at [facility] on 05/28/2023 for nausea, and vomiting and treated for dehydration, GI upset. He then traveled to [place] a few days later for vacation and had recurrent symptoms resulting in a prolonged hospital stay with STEPHANIE, hypotension and hypertension, dehydration, mildly elevated troponins. He was rehydrated and sent home with his usual Lasix and lisinopril. Carvedilol was added. Daughter states that following discharge he was then having hypotension and the carvedilol was reduced to once daily in the morning and Lasix and lisinopril were placed on hold by his PCP. Today he reports that he has been feeling heartburn sensation that occurs intermittently in the last few weeks. He has been taking Tums and does get relief. He notice this symptom more after eating and when laying down. He denies exertional discomfort however admits to being very sedentary. He ambulates with a cane. He was recently admitted to [facility] and had mildly elevated troponins. Breathing is comfortable, no PND, orthopnea. His diuretic has been on hold since his hospital discharge and he now has bilateral leg edema. His blood pressure initially had been running quite low however now it is in a better range. He has no recurrent syncopal events. No dizziness, presyncope, falls. He admits to good dietary intake and hydration. Taking carvedilol only once daily. Remains Off lisinopril. Daughter who is an RN at [employer] is present. [facility] Medical History Essential hypertension Gastric ulcer Gout HLD (hyperlipidemia) Hx of skin pruritus Obesity Obesity (BMI 30.0-34.9) GEOVANNI (obstructive sleep apnea) Pulmonary hypertension Renal insufficiency Surgical History H/O foot surgery History of cataract surgery Family History Father No problems noted. Mother Colon cancer Sister Colon cancer Brother Stomach cancer Social History Housing: House Alcohol intake: never Patient Tobacco Use Status: Former Tobacco user Quit Date: e-Cigarette/Vaping Use: Never Used Second Hand Smoke Exposure: No Advance Directives Date on File: 08/23/20 service: No Current occupational status: retired Cognitive needs: No Hearing needs: No Vision needs: Yes Review of Systems Const All systems reviewed & are unremarkable except as noted in HPI and below ENT Reports dizziness Card Details: Intermittent heartburn sensation Reports chest pain, Denies chest pain at rest, Denies chest pain with activity, Denies rapid heart rate, Denies pedal edema, Denies edema, Reports leg edema, Denies lightheadedness, Denies palpitations, Denies dyspnea, Denies dyspnea on exertion and Denies orthopnea Resp Denies cough, Denies dyspnea and Denies dyspnea on exertion GI Denies hematochezia and Denies change in stool character Musc Denies abnormal gait, Reports limited range of motion, Reports muscle cramps, Denies muscle weakness, Denies numbness, Denies radiating pain into limb, Denies stiffness and Denies tingling Neuro Denies abnormal gait, Reports dizziness, Denies numbness and Denies tingling Endo Denies palpitations Physical Exam Vital Signs: Last Vital Signs Pulse 76 06/19/23 09:49 BP 100/60 06/19/23 09:49 BMI result Body Mass Index 31.1 Const Other: Ambulates with cane General: cooperative, healthy appearing, comfortable and no acute distress Orientation/consciousness: patient oriented x3 Neck Neck: Yes normal visual inspection Resp Effort & Inspection: normal respiratory effort Auscultation: clear to auscultation bilaterally, no crackles, no rales, no rhonchi and no wheezes Cardio Jugular venous distension: no JVD Rate: regular rate Rhythm: regular rhythm Heart sounds: S1 normal heart sound present, S2 normal heart sound present, no murmurs and no rubs Neuro General: patient oriented x3 Extrem Other: 2+ pitting edema from his mid calf to ankle Psych Appearance: grossly normal Mental Status: mental status grossly normal Speech and movement: Normal speech and movement present Assessment & Plan Assessment & Plan (1) Acute dehydration: Code(s): E86.0 - Dehydration Plan: Recent [facility] ER visit for nausea vomiting and treated for dehydration. Recurrent symptoms when in [place] and hospitalized for STEPHANIE, dehydration, mildly elevated troponin. He was rehydrated and his Lasix and lisinopril were initially held however restarted on discharge. His blood pressures were low and his Lasix and lisinopril have since been stopped. His carvedilol which was new has been reduced to once daily. At this time he feels back to his normal self as far as GI symptoms however does report some heartburn sensation which will be addressed below. (2) Acute kidney injury: Code(s): N17.9 - Acute kidney failure, unspecified Plan: During last admission. Baseline creatinine is 1.4. Last value according to daughter is 1.4. (3) Precordial chest pain: Code(s): R07.2 - Precordial pain Plan: Reports of mid chest burning sensation which occurs intermittently, especially after eating and when laying down. He has no exertional symptoms. This sounds more likely GI in nature however he does have known history of CAD with CTA of the coronaries done 03/2021 showing nonobstructive disease in the LAD and RCA, right PDA with 50-69% stenosis. Troponin was mildly elevated during [facility] admission. Daughter reports echocardiogram showed normal EF and no wall motion abnormalities. For completeness will order a nuclear stress test to evaluate for any ischemia. At present continue aspirin, atorvastatin, carvedilol. Signs and symptoms of angina reviewed. Emergency care if needed for symptoms. (4) Elevated troponin: Code(s): R77.8 - Other specified abnormalities of plasma proteins (5) Essential hypertension: Code(s): I10 - Essential (primary) hypertension Plan: Normal range today. Blood pressures reached checked by me, sitting 124/74, standing 128/84. He remains off lisinopril. His carvedilol is only taken in the morning. He has a history of hypertension and blood pressures typically had been running high on him. He has bilateral leg edema which has occurred over the last week. At this time will have him restart Lasix at 20 mg daily. Daughter will ensure that blood pressure is monitored closely. May eventually need restart of lisinopril and increase in carvedilol back to b.i.d. dosing (6) CKD (chronic kidney disease): Code(s): N18.9 - Chronic kidney disease, unspecified Plan: Followed with Dr. Calvillo from Nephrology (7) Edema: Code(s): R60.9 - Edema, unspecified Orders: Orders CA lexiscan stress w kristin Today R07.2 - Precordial pain, R77.8 - Other specified abnormalities of plasma proteins NM cardiolite stress test Today I25.10 - Atherosclerotic heart disease of [place] coronary artery without angina pectoris, R07.2 - Precordial pain, R77.8 - Other specified abnormalities of plasma proteins Coding Level of Care Code Est Pt Level 4 (23533) Diagnoses Acute dehydration E86.0 Acute kidney injury N17.9 Precordial chest pain R07.2 Elevated troponin R77.8 Essential hypertension I10 CKD (chronic kidney disease) N18.9 Edema R60.9 Time Spent (min) 38 Comment Chart review, documentation, interview, assessment, family discussion
[2023-06-19 09:49] VITALS: BP 100/60; PULSE 76; BMI 31.1
== END 2023-06-19 10:44 | disposition home or self-care (01) ==
PROVIDERS: PCP Internal Medicine; Visit Provider Nurse Practitioner Family
DX: E86.0 Dehydration (principal); N17.9 Acute kidney failure, unspecified; R07.2 Precordial pain; R77.8 Other specified abnormalities of plasma proteins; I12.9 Hypertensive chronic kidney disease with stage 1 through stage 4 chronic kidney disease, or unspecified chronic kidney disease; N18.9 Chronic kidney disease, unspecified; R60.9 Edema, unspecified
CPT/HCPCS: 99214

== ENCOUNTER → 2023-06-19 09:47 | Outpatient (BNVA) | payer MEDICARE, SELFPAY | PROVIDERS: PCP Internal Medicine; Visit Provider Nurse Practitioner Family | DX: I12.9 Hypertensive chronic kidney disease with stage 1 through stage 4 chronic kidney disease, or unspecified chronic kidney disease (principal); R60.9 Edema, unspecified; E86.0 Dehydration; N17.9 Acute kidney failure, unspecified; R77.8 Other specified abnormalities of plasma proteins; R07.2 Precordial pain | CPT/HCPCS: 99212 ==

== ENCOUNTER → 2023-06-29 08:49 | Outpatient (REF) | payer MEDICARE, SELFPAY ==
--- NOTE | ~2023-06-29 | NM_ITS ---
Myocardial perfusion study Indication: Atherosclerotic heart disease to evaluate for myocardial ischemia Technique: The patient was brought in for a Lexiscan perfusion study on 06/29/2023. Patient performed low-level exercise and was injected 0.4 mg of Lexiscan intravenously. Within a minute of injection, 30 mCi of sestamibi was given intravenously. Images were obtained using the SPECT gamma camera interlaced with the gating device. Images were obtained in supine position. Resting perfusion study was performed on 07/03/2023. Patient was administered 30 mCi of sestamibi intravenously at rest. Images were then obtained in supine position. Images obtained with and without CT attenuation. Total DLP 69 mGy-cm. Images were processed with the software and compared side to side in short axis, horizontal long axis and vertical long axis views. Findings: The stress perfusion study showed non attenuated images show moderately reduced uptake in the inferolateral as well as mildly to moderately reduced uptake in the inferior wall of the LV myocardium. Remainder of the LV myocardium is normally perfused. Attenuation corrected images show mildly reduced uptake in the apex of the LV myocardium.. The gated study shows normal LV systolic function with calculated LVEF of 62%. LV cavity is normal in size. The gated study shows normal systolic wall thickening and contraction of segments. Resting study shows nontender images show mildly to moderately reduced uptake in the inferior wall as well as inferolateral wall of the LV myocardium. Attenuation corrected images show mildly reduced uptake in the apex of the LV myocardium.. Gating at rest reveals normal systolic wall motion with ejection fraction at 53%. The findings are consistent with no clear reversible defect on attenuated images. Likely normal myocardial perfusion. NM/NM cardiolite stress test Impression: 1. Myocardial perfusion imaging study shows likely normal myocardial perfusion 2. Gated LVEF is 62% 3. Transient ischemic dilatation not present EKG is Nondiagnostic for ischemia
--- NOTE | 2023-06-29 08:52 | CA_ITS ---
Acquisition Time: 2023-06-29 08:59:07 Total Exercise Time: 00:02:00 Test Indications: CP, ELEVATED TROPONINS Medications: SEE H Protocol: LEXISCAN Max HR: 090 BPM 63% of Pred: 141 BPM Max BP: 110/078 mmHG Max Work Load: 1.0 METS Pharmacological stress test with lexiscan injeciton while sititing and kicking his legs, without anginal symptoms, without arrhythmias, with normotensive response to injection, with non-diagnopsitic EKGs. Nuclear images pending. Test reviewed with Dr. Torres. Referred By: Aidee Oneal Overread By: Toni Torres
== END ==
LOC: HO.CARD 08:49
PROVIDERS: PCP Internal Medicine; Visit Provider Nurse Practitioner Family
DX: R07.2 Precordial pain (principal); I25.10 Atherosclerotic heart disease of native coronary artery without angina pectoris; R77.8 Other specified abnormalities of plasma proteins
CPT/HCPCS: 78452; 93017; A9500; J0280; J2785

== ENCOUNTER → 2023-06-29 08:52 | Outpatient (BNV) | payer MEDICARE, SELFPAY | PROVIDERS: PCP Internal Medicine; Visit Provider Internal Medicine Cardiovascular Disease | DX: R07.9 Chest pain, unspecified (principal) | CPT/HCPCS: 78452; 93016; 93018 ==

== ENCOUNTER 2023-07-24 15:36 | Outpatient (AMB) | payer MEDICARE, SELFPAY ==
--- NOTE | 2023-07-24 15:48 | AM.OFFVISNUR ---
Intake Intake Visit Reasons: PVR Allergies No Known Allergies [No Known Allergies*] Allergy (Verified 06/20/23 07:26) Office Procedures Post Void Residual Post Residual Void Details: pt presents to office with his daughter for PVR after being seen at an urgent care for retention, although no bladder scan was done and pt was unable to give sample. pt states last time he urinated was at 1100, normal stream and then shortly after had another bout of hematuria. pt able to give sample, positive for infection, PVR 70 mls. per Chrissy urine sent for culture, script for bactrim DS BID x 7 days sent, advised pt to not take doxy script sent by urgent care. pt aware takes 48 hrs for results, will call pt once received. Post Void Residual (PVR): 70 [id number] Void Residual by ultrasound Results AMB Urinalysis, Automated UA Leukoctes 500 Maira/uL Last Edit by Dalia Gilmore RN on 07/24/23 16:17 UA Nitrite Positive Last Edit by Dalia Gilmore RN on 07/24/23 16:17 UA Urobilinogen 0 mg/dL Last Edit by Dalia Gilmore RN on 07/24/23 16:17 UA Protein 30 mg/dL Last Edit by Dalia Gilmore RN on 07/24/23 16:17 UA pH 5.5 Last Edit by Dalia Gilmore RN on 07/24/23 16:17 UA Blood 200 Mundo/uL Last Edit by Dalia Gilmore RN on 07/24/23 16:17 UA Specific [place] 1.020 Last Edit by Dalia Gilmore RN on 07/24/23 16:17 UA Ketone Negative Last Edit by Dalia Gilmore RN on 07/24/23 16:17 UA Bilirubin 0 mg/dL Last Edit by Dalia Gilmore RN on 07/24/23 16:17 UA Glucose 0 mg/dL Last Edit by Dalia Gilmore RN on 07/24/23 16:17 Coding Diagnoses CPT Codes Post Residual Void - PVR CPT Code: 45801-[id number] Void Residual by ultrasound ([id number]) Assessment & Plan Assessment & Plan Orders: Orders AMB Post Void Residual by ultrasound Today N13.8 - Other obstructive and reflux uropathy, N40.1 - Benign prostatic hyperplasia with lower urinary tract symptoms AMB Urinalysis Automated Today N13.8 - Other obstructive and reflux uropathy, N40.1 - Benign prostatic hyperplasia with lower urinary tract symptoms Urine Culture Today N13.8 - Other obstructive and reflux uropathy, N40.1 - Benign prostatic hyperplasia with lower urinary tract symptoms Medications: New sulfamethoxazole-trimethoprim 800-160 mg (Bactrim DS) 1 tab PO BID 7 days 14 tabs 0RF
== END 2023-07-24 16:18 | disposition home or self-care (01) ==
PROVIDERS: PCP Internal Medicine; Visit Provider Nurse Practitioner Family
DX: N40.1 Benign prostatic hyperplasia with lower urinary tract symptoms (principal); N13.8 Other obstructive and reflux uropathy

== ENCOUNTER → 2023-07-24 15:36 | Outpatient (BNVA) | payer MEDICARE, SELFPAY | PROVIDERS: PCP Internal Medicine; Visit Provider Nurse Practitioner Family | DX: N40.1 Benign prostatic hyperplasia with lower urinary tract symptoms (principal); N13.8 Other obstructive and reflux uropathy | CPT/HCPCS: 51798; 81003; 87086; 87088; 87186 ==

== ENCOUNTER 2023-07-24 16:22 | Outpatient (REF) | payer MEDICARE, SELFPAY | END 2023-07-24 16:23 | disposition home or self-care (01) | LOC: HO.LNP 16:22 | PROVIDERS: Visit Provider Nurse Practitioner Family | DX: Z13.89 Encounter for screening for other disorder (principal) | CPT/HCPCS: 87086; 87088; 87186 ==

== ENCOUNTER 2023-08-14 08:52 | Outpatient (REF) | payer MEDICARE, SELFPAY ==
[2023-08-14 10:11] LABS: Alanine Aminotransferase 13 U/L (0-40); Albumin Level 4.1 g/dL (3.5-5.0); Alkaline Phosphatase 69 U/L (39-117); Anion Gap 17 (12-20); Aspartate Amino Transferase 18 U/L (5-37); Bilirubin Total 2.2 mg/dL (0.0-1.0); Blood Urea Nitrogen 22 mg/dL (9-16); Calcium 9.9 mg/dL (8.4-10.2); Carbon Dioxide 25 mmol/L (22-29); Chloride 105 mmol/L (96-108); Cholesterol 125 mg/dL (<200); Estimated Glomerular Filt Rate > 60; Glucose Fasting 111 mg/dL (60-99); HDL Cholesterol 48 mg/dL (>40); LDL Cholesterol Calculated 63 mg/dL (<100); Potassium 4.1 mmol/L (3.3-5.1); Sodium 143 mmol/L (135-145); Triglycerides 71 mg/dL (<150)
[2023-08-14 10:25] LABS: Prostate Specific Antigen 5.75 ng/mL (<0.05-4.0)
== END 2023-08-14 08:53 | disposition home or self-care (01) ==
LOC: HO.LAB 08:52
PROVIDERS: Nurse Practitioner Family; PCP Internal Medicine; Visit Provider Internal Medicine
DX: Z12.5 Encounter for screening for malignant neoplasm of prostate (principal); N40.0 Benign prostatic hyperplasia without lower urinary tract symptoms; N28.9 Disorder of kidney and ureter, unspecified; E78.5 Hyperlipidemia, unspecified
CPT/HCPCS: 36415; 80053; 80061; 84153

== ENCOUNTER 2023-08-15 09:02 | Outpatient (REF) | payer MEDICARE, SELFPAY ==
[2023-08-15 10:56] LABS: PSA,Total (Free>4and<10) 6.04 ng/mL (0.00-4.00)
[2023-08-17 10:13] LABS: Percent Free Prostate Spec Ag 20 % (calc) (>25); Prostate Specific Ag Total 4.9 ng/mL (< OR = 4.0)
== END 2023-08-15 09:03 | disposition home or self-care (01) ==
LOC: HO.LAB 09:02
PROVIDERS: PCP Internal Medicine; Visit Provider Nurse Practitioner Family
DX: R97.20 Elevated prostate specific antigen [PSA] (principal); Z12.5 Encounter for screening for malignant neoplasm of prostate
CPT/HCPCS: 36415; 84153; 84154

== ENCOUNTER 2023-08-22 16:25 | Outpatient (AMB) | payer MEDICARE, SELFPAY ==
--- NOTE | 2023-08-22 17:23 | A.OFFVIS_ITS ---
Intake Intake Visit Reasons: Labs- follow up Allergies No Known Allergies [No Known Allergies*] Allergy (Verified 06/20/23 07:26) Medication List - Last Reconciled 08/22/23 by FEMI Young- allopurinol 150 mg PO DAILY aspirin 81 mg PO DAILY atorvastatin 40 mg PO DAILY betamethasone dipropionate 0.05% 1 appl topical BID carvedilol (Coreg) 3.125 mg PO BID cetirizine (Zyrtec) 10 mg PO DAILY PRN CPAP (CPAP Machine/Device) As directed diphenhydramine-acetaminophen 25-500 mg (Tylenol PM Extra Strength) 1 tab PO BEDTIME PRN [Shower chair As directed] sulfamethoxazole-trimethoprim 800-160 mg (Bactrim DS) 1 tab PO BID 7 days tamsulosin 0.4 mg PO DAILY [Walker As directed] HPI HPI Comments History of Present Illness Details Bryce Alvarez is a pleasant 78-year-old male patient of Dr. Valentin. He has a past medical history of hypertension, gastric ulcer, gout, hyperlipidemia, obesity, GEOVANNI, pulmonary hypertension, and renal insufficiency. He is being followed up on today via telehealth for a follow-up of his labs. Of note, patient was seen approximately 2 months ago at which time recommendations were made for a PSA to be obtained for further assessment evaluation. These results were reviewed with the patient today. PSAs are as follows: 09/05--1.6 09/06--1.8 09/07--1.5 08/11--5.8 08/11--6.0 % free prostate specific anti gen 20% Discussed at length potential causes for elevated PSA. Discussed surveillance monitoring verses trial of finasteride verses prostate biopsy. Discussed risks and benefits of these interventions mention. Discussed PCP T calculator 09/10 70% negative, 19% chance of low-grade cancer, and 11% chance of high-grade prostate cancer. Patient discusses wanting to proceed with surveillance monitoring at this time. Discussed at length risk of delay in treatment. Will obtain PSA in 3 months and follow-up at that time. Patient reporting retrograde ejaculation on tamsulosin. Discussed trial of alfuzosin however patient declines at this time. He discusses feeling he is already on many medications. Discussed alfuzosin taking place of tamsulosin however patient reports being on this medication for quite some time and does not wish to try another medication. He otherwise offers no issues or concerns. He denies hematuria, dysuria, foul smelling urine, changes to urinary stream, flank pain, fever, and or chills. He is happy with his current voiding parameters on flomax daily. [facility] Medical History GEOVANNI (obstructive sleep apnea) Obesity (BMI 30.0-34.9) Renal insufficiency Hx of skin pruritus Gout Gastric ulcer Obesity Pulmonary hypertension Essential hypertension HLD (hyperlipidemia) Surgical History H/O foot surgery History of cataract surgery Family History Father No problems noted. Mother Colon cancer Sister Colon cancer Brother Stomach cancer Social History Housing: House Alcohol intake: never Patient Tobacco Use Status: Former Tobacco user Quit Date: 50 e-Cigarette/Vaping Use: Never Used Second Hand Smoke Exposure: No Advance Directives Date on File: 08/23/20 service: No Current occupational status: retired Cognitive needs: No Hearing needs: No Vision needs: Yes Review of Systems Const Reports as per HPI Eyes Reports no additional complaints ENT Reports no additional complaints Card Reports as per HPI Resp Reports as per HPI GI Reports as per HPI Reports as per HPI Neuro Reports no additional complaints Psych Reports no additional complaints Endo Reports no additional complaints Jose Antonio/Lymph Reports no additional complaints Aller/Immun Reports no additional complaints Physical Exam Const General: cooperative Orientation/consciousness: patient oriented x3 Resp Effort & Inspection: able to speak in complete sentences Neuro General: patient oriented x3 Psych Speech and movement: Clear speech present Attitude: cooperative Thought content: Normal thought content present Insight: Fair insight present (Psych) Judgement: Fair judgement present (Psych) Assessment & Plan Assessment & Plan (1) Elevated PSA: Code(s): R97.20 - Elevated prostate specific antigen [PSA] (2) BPH with obstruction/lower urinary tract symptoms: Code(s): N40.1 - Benign prostatic hyperplasia with lower urinary tract symptoms; N13.8 - Other obstructive and reflux uropathy Plan Recent PSA results reviewed with the patient today; as noted above. Discussed at length potential causes for elevated PSA. Discussed at length prostate biopsy versus surveillance monitoring verses trial finasteride; discussed risks and benefits of these asforementioned treatment options. Discuss trial of alfuzosin verses tamsulosin as patient reporting retrograde ejaculation. Patient denies any bothersome urinary concerns and wishes to continue Flomax 0.4 mg daily. Will continue with surveillance monitoring at this time; discussed possible delay in treatment with surveillance monitoring Will obtain PSA in 3 months. Follow-up in 3 months with PSA to be completed prior; or sooner with any issues, concerns, and or questions. Patient Instructions: The patient had an opportunity to ask questions regarding the treatment plan. All questions were answered. Physical exam, labs, and imaging were discussed and reviewed in detail. As well as risks, benefits, and discussion of treatment choices. No major barriers to understanding were identified. The patient expressed understanding and agreement with the above treatment plan. The patient was made aware they should contact our office by phone for worsening of their current condition, the appearance of new symptoms, or with any questions or concerns. Compliance is encouraged with any medications and follow up testing that is ordered. It is a privilege to be allowed the opportunity to participate in? your urological care.? Again, if you have any questions or concerns If you have any questions or concerns please do not hesitate to contact me. The office is [phone]. This note is constructed using voice recognition software. While every effort has been made to ensure accuracy assistant manager pt errors may have been included. Yours sincerely, Chrissy Winkler [facility] Telehealth Telehealth Location of provider rendering services: practice address Location of patient: address on file Patient Identification confirmed using: Name, : Yes Telehealth method: voice only Patient verbally consented to treatment: Yes Patient verbally consented to billing insurance company: Yes Patient informed of any privacy concerns related to visit: Yes Minutes spent on Phone/Video with Pt.: 15 Coding Level of Care Code Tele Est Pt Level 3 (30657) Diagnoses Elevated PSA R97.20 BPH with obstruction/lower urinary tract symptoms N40.1; N13.8
== END 2023-08-22 16:26 | disposition home or self-care (01) ==
LOC: HO.HUSH 16:25
PROVIDERS: PCP Internal Medicine; Visit Provider Nurse Practitioner Family
DX: R97.20 Elevated prostate specific antigen [PSA] (principal); N40.1 Benign prostatic hyperplasia with lower urinary tract symptoms; N13.8 Other obstructive and reflux uropathy
CPT/HCPCS: 99442

== ENCOUNTER → 2023-08-22 16:25 | Outpatient (BNVA) | payer MEDICARE, SELFPAY | PROVIDERS: PCP Internal Medicine; Visit Provider Nurse Practitioner Family ==

== ENCOUNTER 2023-09-11 14:45 | Outpatient (AMB) | payer MEDICARE, SELFPAY ==
[2023-09-11 14:48] VITALS: BP 108/70; PULSE 97; O2SAT 97; BMI 30.5
--- NOTE | 2023-09-11 14:48 | A.OFFPC_ITS ---
Vital Signs 09/11/23 14:48 Height 5 ft 11 in Weight 219 lb BMI 30.5 BP 108/70 Blood Pressure Location Lt brachial Position Sitting Pulse 97 Pulse Source Pulse Oximeter Pulse Oximetry (%) 97 Oxygen Delivery Method Room Air Intake Visit Reasons: 3M follow up Geochemist: Present Accompanied by: Daughter Allergies No Known Allergies [No Known Allergies*] Allergy (Verified 09/11/23 14:49) Medication List - Last Reconciled 09/12/23 by Irving Valentin MD allopurinol 150 mg PO DAILY aspirin 81 mg PO DAILY atorvastatin 40 mg PO DAILY betamethasone dipropionate 0.05% 1 appl topical BID carvedilol (Coreg) 3.125 mg PO BID cetirizine (Zyrtec) 10 mg PO DAILY PRN CPAP (CPAP Machine/Device) As directed diphenhydramine-acetaminophen 25-500 mg (Tylenol PM Extra Strength) 1 tab PO BEDTIME PRN [Shower chair As directed] sulfamethoxazole-trimethoprim 800-160 mg (Bactrim DS) 1 tab PO BID 7 days tamsulosin 0.4 mg PO DAILY [Walker As directed] Tobacco use date assessed: 06/08/23 Fall risk assessment: 1 Fall in past year Last assessed Fall Risk: 09/11/23 Dental Screening Dental Screen Date: 09/11/23 Did you have a dental visit in the last 12 months?: Yes Did you have a dental problem in the last 6 months where you did not have access to dental care?: No Was dental information given to patient?: Patient has dentist HPI 3M follow up HPI Details dysphagia for solids for a few weeks PFSH Medical History GEOVANNI (obstructive sleep apnea) Obesity (BMI 30.0-34.9) Renal insufficiency Hx of skin pruritus Gout Gastric ulcer Obesity Pulmonary hypertension Essential hypertension HLD (hyperlipidemia) Surgical History H/O foot surgery History of cataract surgery Family History Father No problems noted. Mother Colon cancer Sister Colon cancer Brother Stomach cancer Social History Housing: House Alcohol intake: never Patient Tobacco Use Status: Former Tobacco user Quit Date: 50 e-Cigarette/Vaping Use: Never Used Second Hand Smoke Exposure: No Advance Directives Date on File: 08/23/20 service: No Current occupational status: retired Cognitive needs: No Hearing needs: No Vision needs: Yes Questionnaire PHQ-9 Over the last 2 weeks, how often have you been bothered by any of the following problems? 1. Little interest or pleasure in doing things: not at all 2. Feeling down, depressed, or hopeless: not at all 3. Trouble falling or staying asleep, or sleeping too much: not at all 4. Feeling tired or having little energy: not at all 5. Poor appetite or overeating: not at all 6. Feeling bad about yourself - or that you are a failure or have let yourself or your family down: not at all 7. Trouble concentrating on things, such as reading the newspaper or watching television: not at all 8. Moving or speaking so slowly that other people could have noticed. Or the opposite - being so fidgety or restless that you have been moving around a lot more than usual: not at all 9. Thoughts that you would be better off or of hurting yourself in some way: not at all Total score: 0 Depression Screening Interpretation: Negative Depression Screening Done: Yes 53322 - PHQ-9 Billing: Yes Source: Developed by Drs. Tre Salvador, Talib Pierre and colleagues, with an educational arnoldo from [employer]. Thrive Questionnaire Date Thrive assessed: 06/08/23 AUDIT C Alcohol Use Questionnaire (AUDIT-C) 1. How often do you have a drink containing alcohol?: Never Total Score: 0 RACHEL-7 AMB Questionnaire RACHEL-7 Date RACHEL - 7 assessed: 06/08/23 Source: Developed by Drs. Tre Salvador, Talib Pierre and colleagues, with an educational arnoldo from [employer]. Review of Systems Const Denies chills, Denies headache(s) and Denies weight loss ENT Denies headache(s) Card Denies chest pain, Denies syncope, Denies irregular heart rhythm and Denies dyspnea Resp Denies chest congestion, Denies cough and Denies dyspnea GI Denies abdominal pain, Denies change in stool character, Denies nausea and Denies vomiting Musc Denies deformity and Denies joint swelling Neuro Denies syncope and Denies headache(s) Physical exam (Primary Care) Vital Signs: Last Vital Signs Pulse 97 09/11/23 14:48 BP 108/70 09/11/23 14:48 Pulse Ox 97 09/11/23 14:48 Oxygen Delivery Method Room Air 09/11/23 14:48 BMI result Body Mass Index 30.5 Tobacco/Smoking Status: Tobacco use Status Tobacco use date assessed 06/08/23 09/11/23 14:57 Patient Tobacco Use Status Former Tobacco user 09/11/23 14:57 Tobacco use type 08/22/23 16:24 e-Cigarette/Vaping Use Never Used 09/11/23 14:57 PHQ-9: PHQ-9 Score PHQ-9: Total score 0 09/11/23 15:14 Depression Screening Interpretation: Negative Thrive Assessment: Date of Thrive Assessment Date Thrive assessed 06/08/23 09/11/23 14:57 Const General: cooperative, comfortable, no acute distress and alert Neck Neck: Yes no lymphadenopathy Thyroid: Thyroid normal Resp Effort & Inspection: normal respiratory effort Auscultation: clear to auscultation bilaterally Percussion: percussion normal Cardio Jugular venous distension: no JVD Palpation: normal PMI Rate: regular rate Rhythm: regular rhythm Heart sounds: S1 normal heart sound present and S2 normal heart sound present GI Inspection: Yes normal to inspection Palpation (GI): No hepatosplenomegaly present Skin General skin exam: no rashes or lesions noted Extrem General: Yes no clubbing, cyanosis or edema Office Procedures Flu Questionnaire Does the patient have a severe egg allergy?: No Does the patient have severe life threatening allergies?: No Does the patient have a fever or illness today?: No Has the patient ever had Guillain-[place] Syndrome?: No Has the patient ever had any past reaction to a flu shot?: No Immunizations flu vacc [id number] 6mos up(PF) 60 mcg(15 mcgx4)/0.5 mL IM syringe Performing Provider: Irving Valentin MD Performing Location: [facility] Administered by: TOÑA Ying on 09/11/23 15:14 Dose Route Admin Location Dispensed Lot Number Expiration Date NDC [facility] [employer] 0.5 mL IM Left Deltoid 0.5 mL [id number] 09/11/23 27814-619-28 [employer] VIS Given Date VIS Provided VIS Publication Date 09/11/23 Single Vaccine 21 Eligibility Eligibility Date Funding Source Not VFC Eligible 09/11/23 Private Assessment and Plan Assessment & Plan (1) Dysphagia: Code(s): R13.10 - Dysphagia, unspecified Plan: ref to gi Orders: Orders Influenza [id number] Immunization 09/11/23 Z23 - Encounter for immunization Referrals Gastroenterology Referral R13.10 - Dysphagia, unspecified Coding Level of Care Code Est Pt Level 3 (77156) Diagnoses Dysphagia R13.10
== END 2023-09-11 15:16 | disposition home or self-care (01) ==
PROVIDERS: PCP Internal Medicine; Visit Provider Internal Medicine
DX: Z23 Encounter for immunization (principal)
CPT/HCPCS: 90471; 90686; 99213

== ENCOUNTER 2023-09-17 09:31 | Outpatient (AMB) | payer MEDICARE, SELFPAY ==
[2023-09-17 09:40] VITALS: BP 112/70; PULSE 82; O2SAT 95; BMI 31.1
--- NOTE | 2023-09-17 09:40 | A.OFFVIS_ITS ---
Intake Vital Signs 09/17/23 09:40 Height 5 ft 11 in Weight 223 lb BMI 31.1 BP 112/70 Blood Pressure Location Lt brachial Position Sitting Pulse 82 Pulse Source Pulse Oximeter Pulse Oximetry (%) 95 Oxygen Delivery Method Room Air Intake Visit Reasons: marcy Intake Note: pt is here for follow up and feeling pretty good, but he does not see much difference, but his daughter did notice a difference. Field Support Rep Required: No Allergies No Known Allergies [No Known Allergies*] Allergy (Verified 09/17/23 10:01) Medication List - Last Reconciled 09/17/23 by Karla Kwan MD allopurinol 150 mg PO DAILY aspirin 81 mg PO DAILY atorvastatin 40 mg PO DAILY betamethasone dipropionate 0.05% 1 appl topical BID carvedilol (Coreg) 3.125 mg PO BID cetirizine (Zyrtec) 10 mg PO DAILY PRN CPAP (CPAP Machine/Device) As directed diphenhydramine-acetaminophen 25-500 mg (Tylenol PM Extra Strength) 1 tab PO BEDTIME PRN [Shower chair As directed] tamsulosin 0.4 mg PO DAILY [Walker As directed] Do you need a note to return to daycare/school/sports/work: No HPI marcy HPI Details This 78 years old very pleasant gentleman comes for follow-up after 6 months for his sleep apnea and usage of CPAP. He claims that he is getting more used to the CPAP, Has been using it more often and mostly above 4 hours every night. Still during the night especially when he goes to the bathroom he has to take off the mask and sometimes he forgets to put it on again. Overall he does feel better. He is more energetic during the daytime. According to his daughter, he is definitely doing better than before. [facility] Medical History MARCY (obstructive sleep apnea) Obesity (BMI 30.0-34.9) Renal insufficiency Hx of skin pruritus Gout Gastric ulcer Obesity Pulmonary hypertension Essential hypertension HLD (hyperlipidemia) Surgical History H/O foot surgery History of cataract surgery Family History Father No problems noted. Mother Colon cancer Sister Colon cancer Brother Stomach cancer Social History Housing: House Alcohol intake: never Patient Tobacco Use Status: Former Tobacco user Quit Date: 50 e-Cigarette/Vaping Use: Never Used Second Hand Smoke Exposure: No Advance Directives Date on File: 08/23/20 service: No Current occupational status: retired Cognitive needs: No Hearing needs: No Vision needs: Yes Review of Systems Const All systems reviewed & are unremarkable except as noted in HPI and below Eyes Reports no additional complaints ENT Reports no additional complaints Card Denies chest pain, Denies irregular heart rhythm, Reports leg edema and Reports dyspnea on exertion Resp Denies cough, Reports dyspnea on exertion and Denies wheezing GI Reports no additional complaints Reports nocturia Musc Reports no additional complaints and Reports abnormal gait (GAIT IS SLIGHTLY SLOW AND HE USES A CANE) Skin/Breast Reports rash (NONSPECIFIC SKIN CONDITION SINCE LAST YEAR) Neuro Reports abnormal gait (GAIT IS SLIGHTLY SLOW AND HE USES A CANE) Psych Reports depression (MILD) Endo Reports no additional complaints Jose Antonio/Lymph Reports no additional complaints Aller/Immun Denies wheezing Physical Exam Const Other: HE IS MODERATELY OBESE, SLOW IN WALKING. General: comfortable, no acute distress, alert and awake Orientation/consciousness: patient oriented x3 HEENT Head: Yes normal to inspection General nose exam: No nasal polyps present and No nasal discharge present Face and sinus: Yes sinuses nontender Mouth: oropharynx abnormals (MODERATELY NARROW AND CROWDED. MALLAMPATI SCALE 3.) Throat: Yes posterior oropharynx normal Eyes General: appearance normal, both eyes and all related structures Neck Neck: Yes normal visual inspection, Yes no lymphadenopathy, Yes trachea midline, Yes no JVD and Yes other (NECK CIRCUMFERENCE 17 IN) Thyroid: Thyroid normal Chest Chest palpation & inspection: normal inspection of the chest, normal palpation of entire chest wall and no tenderness Resp Other: PERCUSSION NOTE IS RESONANT, HE HAS EQUAL BREATH SOUNDS ON BOTH SIDES. BREATH SOUNDS ARE VESICULAR. NO WHEEZES OR CREPITATIONS ARE HEARD. Cardio Palpation: normal PMI Rate: regular rate Rhythm: regular rhythm Heart sounds: no gallops and no murmurs GI Palpation (GI): Soft to palpation, nontender, No hepatosplenomegaly present and no masses Auscultation: normal bowel sounds Back/Spine/Pelvis Thoracic/Lumbar Spine: thoracic and lumbar spine normal to inspection Skin General skin exam: other (HE HAS GENERALIZED, NONSPECIFIC RASH ON HIS TRUNK AND ALL ARMS.) Neuro General: patient oriented x3, No gait normal (MOSTLY NORMAL BUT SLOW AND HE HAS TO USE CANE) and no focal motor deficits Cranial nerves: Yes CN's II-XII intact bilaterally Extrem General: Yes normal to inspection, Yes no calf tenderness and Yes edema (has 2 + edema of both legs ) Psych Appearance: grossly normal and well kempt Speech and movement: Normal speech and movement present Affect: Sad affect present Results Reviewed Results Reviewed: Compliance report for the last 30 nights is reviewed and he has used 25/30 nights, 83%. Average usage is 4 hours 19 minutes. Pressure used 11-12 cm. There is some air leak, maximum 53 L/mt Residual AHI 5.3 Assessment & Plan Assessment & Plan (1) Obesity (BMI 30.0-34.9): Comment: PATIENT IS MODERATELY OBESE, THIS IS PARTLY DUE TO EDEMA OF LOWER EXTREMITIES. HE IS NOT FIT TO DO MUCH EXERCISE OR EVEN WALK. SO I DO NOT EXPECT HIM TO LOSE MUCH WEIGHT, EXCEPT WITH DIURESIS. Code(s): E66.9 - Obesity, unspecified (2) MARCY (obstructive sleep apnea): Comment: PATIENT IS USING CPAP MORE REGULARLY AND IS BENEFITTING . SOME DIFFICULTY IN SLEEPING, BUT HE DOES USE FOR AT LEAST 3-4 HOURS EVERY NIGHT. HAD A GOOD DISCUSSION AND ENCOURAGED HIM TO USE FOR AT LEAST 5 HOURS EVERY NIGHT. I THINK THAT HE DEFINITELY HAS IMPROVED WITH THE USAGE OF CPAP. Code(s): G47.33 - Obstructive sleep apnea (adult) (pediatric) Coding Level of Care Code Est Pt Level 3 (03403) Diagnoses Obesity (BMI 30.0-34.9) E66.9 MARCY (obstructive sleep apnea) G47.33
== END 2023-09-17 10:02 | disposition home or self-care (01) ==
PROVIDERS: PCP Internal Medicine; Visit Provider Internal Medicine
DX: E66.9 Obesity, unspecified (principal); G47.33 Obstructive sleep apnea (adult) (pediatric)
CPT/HCPCS: 99213

== ENCOUNTER → 2023-09-17 09:31 | Outpatient (BNVA) | payer MEDICARE, SELFPAY | PROVIDERS: PCP Internal Medicine; Visit Provider Internal Medicine | DX: G47.33 Obstructive sleep apnea (adult) (pediatric) (principal); E66.9 Obesity, unspecified; Z68.31 Body mass index [BMI] 31.0-31.9, adult | CPT/HCPCS: 99212 ==

== ENCOUNTER 2023-09-18 14:13 | Outpatient (AMB) | payer MEDICARE, SELFPAY ==
--- NOTE | 2023-09-18 14:23 | A.OFFVIS_ITS ---
Intake Vital Signs 09/18/23 14:25 Height 5 ft 11 in Weight 222 lb 10.67 oz BMI 31.1 BP 116/74 Blood Pressure Location Lt brachial Position Sitting Pulse 95 Intake Visit Reasons: follow up after mibi Intake Note: follow up Chair Mechanic Required: No Accompanied by: Family/Other Allergies No Known Allergies [No Known Allergies*] Allergy (Verified 09/17/23 10:01) Medication List - Last Reconciled 09/18/23 by Salvador Atkins MD allopurinol 150 mg PO DAILY aspirin 81 mg PO DAILY atorvastatin 40 mg PO DAILY betamethasone dipropionate 0.05% 1 appl topical BID carvedilol (Coreg) 3.125 mg PO BID cetirizine (Zyrtec) 10 mg PO DAILY PRN CPAP (CPAP Machine/Device) As directed diphenhydramine-acetaminophen 25-500 mg (Tylenol PM Extra Strength) 1 tab PO BEDTIME PRN furosemide 40 mg PO DAILY [Shower chair As directed] tamsulosin 0.4 mg PO DAILY [Walker As directed] HPI HPI Comments History of Present Illness Details Bryce returns for follow-up regarding coronary artery disease. He is accompanied by his daughter. Overall, he is doing good. No complaints whatsoever. Much better than how he felt in the past. Also using CPAP regularly. [facility] Medical History GEOVANNI (obstructive sleep apnea) Obesity (BMI 30.0-34.9) Renal insufficiency Hx of skin pruritus Gout Gastric ulcer Obesity Pulmonary hypertension Essential hypertension HLD (hyperlipidemia) Surgical History H/O foot surgery History of cataract surgery Family History Father No problems noted. Mother Colon cancer Sister Colon cancer Brother Stomach cancer Social History Housing: House Alcohol intake: never Patient Tobacco Use Status: Former Tobacco user Quit Date: 50 e-Cigarette/Vaping Use: Never Used Second Hand Smoke Exposure: No Advance Directives Date on File: 08/23/20 service: No Current occupational status: retired Cognitive needs: No Hearing needs: No Vision needs: Yes Review of Systems Const Denies weakness ENT Denies dizziness Card Denies chest pain, Denies chest pain with activity, Denies syncope, Denies rapid heart rate, Denies pedal edema, Denies edema, Denies leg edema, Denies lightheadedness, Denies palpitations, Denies dyspnea, Denies dyspnea on exertion and Denies orthopnea Resp Denies cough, Denies dyspnea and Denies dyspnea on exertion GI Denies hematochezia and Denies change in stool character Musc Denies abnormal gait, Denies muscle cramps, Denies muscle weakness, Denies numbness, Denies radiating pain into limb and Denies tingling Neuro Denies abnormal gait, Denies dizziness, Denies syncope, Denies numbness, Denies tingling and Denies weakness Endo Denies palpitations Physical Exam Vital Signs: Last Vital Signs Pulse 95 09/18/23 14:25 BP 116/74 09/18/23 14:25 BMI result Body Mass Index 31.1 Const General: comfortable and no acute distress Orientation/consciousness: patient oriented x3 HEENT Other: Unremarkable Head: Yes normal to inspection Neck Neck: Yes normal visual inspection Chest Chest palpation & inspection: normal inspection of the chest Resp Auscultation: clear to auscultation bilaterally Cardio Palpation: normal PMI Heart sounds: S1 normal heart sound present, S2 normal heart sound present, no gallops, no murmurs and no rubs GI Palpation (GI): Soft to palpation Back/Spine/Pelvis Other: unremarkable Skin General skin exam: no rashes or lesions noted Neuro General: patient oriented x3 Extrem General: Yes normal to inspection Psych Mental Status: mental status grossly normal Assessment & Plan Assessment & Plan (1) Atherosclerotic cardiovascular disease: Code(s): I25.10 - Atherosclerotic heart disease of [place] coronary artery without angina pectoris Plan: Coronary CTA reviewed from 03/2021. He has nonobstructive disease in the LAD, RCA; in the PDA origin, suspected 50-69% stenosis; scattered calcification in the circumflex. Overall, no hemodynamically significant lesions. Stable from 2019. Myocardial perfusion imaging study from 2022 shows normal perfusion. Continue aspirin, beta-blockers and statins. (2) Bifascicular block: Code(s): I45.2 - Bifascicular block Plan: No specific implications at this time. Can be monitored by EKGs. (3) Essential hypertension: Code(s): I10 - Essential (primary) hypertension Plan: He is off a lot of blood pressure medications. He was on lisinopril, hydrochlorothiazide and amlodipine but not taking them anymore. Blood pressure remained stable. No further changes for now. Plan Discussed with daughter who came for appointment. Total time spent 31 minutes. Coding Level of Care Code Est Pt Level 4 (03281) Diagnoses Atherosclerotic cardiovascular disease I25.10 Bifascicular block I45.2 Essential hypertension I10
[2023-09-18 14:25] VITALS: BP 116/74; PULSE 95; BMI 31.1
== END 2023-09-18 14:43 | disposition home or self-care (01) ==
PROVIDERS: PCP Internal Medicine; Visit Provider Internal Medicine
DX: I25.10 Atherosclerotic heart disease of native coronary artery without angina pectoris (principal); I45.2 Bifascicular block; I10 Essential (primary) hypertension
CPT/HCPCS: 99214

== ENCOUNTER → 2023-09-18 14:13 | Outpatient (BNVA) | payer MEDICARE, SELFPAY | PROVIDERS: PCP Internal Medicine; Visit Provider Internal Medicine | DX: I25.10 Atherosclerotic heart disease of native coronary artery without angina pectoris (principal); I45.2 Bifascicular block; I10 Essential (primary) hypertension | CPT/HCPCS: 99212 ==

== ENCOUNTER 2023-09-24 13:18 | Outpatient (REF) | payer MEDICARE, SELFPAY ==
--- NOTE | ~2023-09-24 | XR_ITS ---
EXAMINATION: XR SHOULDER, LEFT CLINICAL INFORMATION: Left shoulder pain. COMPARISON: None available. TECHNIQUE: AP external rotation, Grashey, scapular Y, and axillary views of the left shoulder. FINDINGS: No fracture or dislocation. Inferior acromial spurring. Visualized lung is clear. XR/XR shoulder LT min 2V IMPRESSION: No acute bony pathology left shoulder.
== END 2023-09-24 13:19 | disposition home or self-care (01) ==
LOC: HO.XRAY 13:18
PROVIDERS: PCP Internal Medicine; Visit Provider Internal Medicine
DX: M25.512 Pain in left shoulder (principal)
CPT/HCPCS: 73030

== ENCOUNTER 2023-10-03 11:12 | Day surgery (SDC) | payer MEDICARE, SELFPAY ==
--- NOTE | 2023-10-02 08:32 | HO.ANESPROP2 ---
Documented by User: Berkley Lafleur NP 10/02/23 14:13 HPI - Anesthesia Eval Consult details Narrative: 78yo M for Upper Endoscopy with Balloon Dilitation [place] [facility] [place]. Last office eval 09/18/23 with stable CAD, HTN s/p colo 03/2023 with MAC PMFSH Active Problems Active Problems: All Active Problems (Updated 09/18/23 @ 15:00 by Salvador Atkins MD) Dysphagia (Acute) Elevated PSA (Acute) CAD (coronary artery disease) (Acute) Elevated troponin (Acute) Precordial chest pain (Acute) Dehydration (Acute) Gout (Acute) CKD (chronic kidney disease) (Acute) Edema (Acute) GEOVANNI (obstructive sleep apnea) (Acute) Obesity (BMI 30.0-34.9) (Acute) BPH with obstruction/lower urinary tract symptoms (Acute) Atherosclerotic cardiovascular disease (Acute) Encounter for annual wellness exam in Medicare patient (Acute) Mild depression (Acute) Chronic right hip pain (Acute) Knee pain (Acute) Obesity (Acute) Bifascicular block (Acute) Hypersensitivity reaction (Acute) Obesity (Acute) Pulmonary hypertension (Acute) Essential hypertension (Acute) HLD (hyperlipidemia) (Acute) Past Medical History Medical History GEOVANNI (obstructive sleep apnea) Obesity (BMI 30.0-34.9) Renal insufficiency Hx of skin pruritus Gout Gastric ulcer Obesity Pulmonary hypertension Essential hypertension HLD (hyperlipidemia) Family History Family History Father No problems noted. Mother Colon cancer Sister Colon cancer Brother Stomach cancer Surgical History Surgical History H/O colonoscopy H/O foot surgery History of cataract surgery Social History Social History Housing: House Alcohol intake: never Patient Tobacco Use Status: Former Tobacco user Quit Date: 50 e-Cigarette/Vaping Use: Never Used Second Hand Smoke Exposure: No Advance Directives: No Advance Directives Information Provided: Yes Advance Directives Date on File: 08/23/20 service: No Current occupational status: retired Cognitive needs: No Hearing needs: No Vision needs: Yes Meds Allergies Allergy/AdvReac Type Severity Reaction Status Date / Time No Known Allergies Allergy Verified 09/17/23 10:01 [No Known Allergies*] Home Medications Medication Instructions Recorded Confirmed Last Taken Type aspirin 81 mg tablet,delayed 81 mg PO DAILY 03/16/21 09/18/23 04/03/23 History release atorvastatin 40 mg tablet 40 mg PO DAILY 04/05/23 09/18/23 Unknown History allopurinol 300 mg tablet 150 mg PO DAILY 04/25/23 09/18/23 Unknown History betamethasone dipropionate 0.05 % 1 appl topical BID 04/25/23 09/18/23 Unknown History topical cream diphenhydramine 25 1 tab PO BEDTIME PRN 04/25/23 09/18/23 Unknown History mg-acetaminophen 500 mg tablet (Tylenol PM Extra Strength) carvedilol 3.125 mg tablet (Coreg) 3.125 mg PO BID 06/08/23 09/18/23 Unknown History CPAP (CPAP Machine/Device) 06/13/23 09/18/23 Unknown History cetirizine 10 mg capsule (Zyrtec) 10 mg PO DAILY PRN 06/19/23 09/18/23 Unknown History furosemide 40 mg tablet 40 mg PO DAILY 09/18/23 09/18/23 Unknown History Exam Exam Date and Time: October 02, 2023 0832 Pertinent Lab Results Pertinent Lab Results: Laboratory Tests 05/28/23 08/14/23 12:32 09:15 WBC 17.4 H Hgb 16.8 D Hct 48.9 D Plt Count 221 D Sodium 143 Potassium 4.1 Chloride 105 Carbon Dioxide 25 BUN 22 H Creatinine 1.07 Narrative Narrative: Per 09/18/23 Cardiac office visit: Coronary CTA reviewed from 03/2021. He has nonobstructive disease in the LAD, RCA; in the PDA origin, suspected 50-69% stenosis; scattered calcification in the circumflex. Overall, no hemodynamically significant lesions. Stable from 2018. Myocardial perfusion imaging study from 2022 shows normal perfusion. EKG 05/2023 Vent. Rate : 074 BPM Atrial Rate : 074 BPM P-R Int : 176 ms QRS Dur : 124 ms QT Int : 434 ms P-R-T Axes : 036 -39 -05 degrees QTc Int : 481 ms Normal sinus rhythm Left axis deviation Left ventricular hypertrophy with QRS widening ( R in aVL , [place] product , Romhilt-Mckeon ) Nonspecific ST abnormality Abnormal ECG When compared with ECG of 20-JUN-2006 07:52, Vent. rate has increased BY 27 BPM T wave amplitude has decreased in Anterior leads QT has lengthened ECHO 03/2023 Conclusions: - The left ventricular systolic function is normal. The calculated ejection fraction is 66% by biplane method. - No obvious valvular pathology seen on this study. - There is mild dilatation of the ascending aorta measuring 4.00 cm. Assessment and Plan Assessment Anesthesia Assessment: Chart Reviewed Documented by User: Meg Silverman MD 10/03/23 12:28 HPI - Anesthesia Eval Consult details Narrative: 78yo M for Upper Endoscopy with Balloon Dilatation [place] [facility] [place]. Last office eval 09/18/23 with stable CAD, HTN s/p colo 03/2023 with MAC PMFSH Active Problems Active Problems: All Active Problems (Updated 10/03/23 @ 11:46 by Meg Silverman MD) Dysphagia (Acute) Elevated PSA (Acute) CAD (coronary artery disease) (Acute)-denies recent chest pain Elevated troponin (Acute) -Mildly elevated. 05/2023 H/o Dehydration (Acute) Gout (Acute) ? CKD (chronic kidney disease) (Acute)- Treated in 05/2023 for dehydration with STEPHANIE Edema (Acute) GEOVANNI (obstructive sleep apnea) (Acute)- uses CPAP Obesity (BMI 30.0-34.9) (Acute) BPH with obstruction/lower urinary tract symptoms (Acute) Atherosclerotic cardiovascular disease (Acute) Encounter for annual wellness exam in Medicare patient (Acute) Mild depression (Acute) Chronic right hip pain (Acute) Knee pain (Acute) Bifascicular block (Acute) Hypersensitivity reaction (Acute) ?Pulmonary hypertension (Acute)- echo 03/2023-no evidence of pulmonary HTN Essential hypertension (Acute) HLD (hyperlipidemia) (Acute) Past Medical History Medical History GEOVANNI (obstructive sleep apnea) Obesity (BMI 30.0-34.9) Renal insufficiency Hx of skin pruritus Gout Gastric ulcer Obesity Pulmonary hypertension Essential hypertension HLD (hyperlipidemia) Family History Family History Father No problems noted. Mother Colon cancer Sister Colon cancer Brother Stomach cancer Family history of problems with anesthesia: No Surgical History Surgical History H/O colonoscopy H/O foot surgery History of cataract surgery History of Problems with Anesthesia: No Social History Social History Housing: House Alcohol intake: never Patient Tobacco Use Status: Former Tobacco user Quit Date: e-Cigarette/Vaping Use: Never Used Second Hand Smoke Exposure: No Advance Directives: No Advance Directives Information Provided: Yes Advance Directives Date on File: 08/23/20 service: No Current occupational status: retired Cognitive needs: No Hearing needs: No Vision needs: Yes Meds Allergies Allergy/AdvReac Type Severity Reaction Status Date / Time No Known Allergies Allergy Verified 09/17/23 10:01 [No Known Allergies*] Home Medications Medication Instructions Recorded Confirmed Last Taken Type aspirin 81 mg tablet,delayed 81 mg PO DAILY 03/16/21 09/18/23 04/03/23 History release atorvastatin 40 mg tablet 40 mg PO DAILY 04/05/23 09/18/23 Unknown History allopurinol 300 mg tablet 150 mg PO DAILY 04/25/23 09/18/23 Unknown History betamethasone dipropionate 0.05 % 1 appl topical BID 04/25/23 09/18/23 Unknown History topical cream diphenhydramine 25 1 tab PO BEDTIME PRN 04/25/23 09/18/23 Unknown History mg-acetaminophen 500 mg tablet (Tylenol PM Extra Strength) carvedilol 3.125 mg tablet (Coreg) 3.125 mg PO BID 06/08/23 09/18/23 Unknown History CPAP (CPAP Machine/Device) 06/13/23 09/18/23 Unknown History cetirizine 10 mg capsule (Zyrtec) 10 mg PO DAILY PRN 06/19/23 09/18/23 Unknown History furosemide 40 mg tablet 40 mg PO DAILY 09/18/23 09/18/23 Unknown History Exam Height,Weight and Vital Signs: Height 5 ft 11 in Weight 101.605 kg Vital Signs Temp Pulse Resp BP Pulse Ox O2 Del Method 10/03/23 12:03 97.6 F 85 18 119/78 95 Room Air Airway Mallampati Class: II TM Dist: >3cm Neck ROM: Full Denture: Upper Loose/Missing/Broken Teeth: Yes (Some missing teeth. Denies broken or loose teeth) Heart: RRR Lungs: CTAB Assessment and Plan Assessment Anesthesia Assessment: Anesthesia Plan Discussed Final Anesthetic Review Family History of Problems with Anesthesia: No History of Problems with Anesthesia: No NPO: Yes ASA Class: III Final Preanesthetic Review: No Changes in Pt Med Stat, Meds/Allgs Chart Reviewed, Consent Obtained/Reviewed and Anes Risks/Benef Reviewed Patient Risk: Intermediate Procedure Risk: Low Assessment/Block/Sedation in SS: Assess/Block/Sedation-SS Anesthetic Plan Anesthetic Plan: MAC: Disposition: Standard PACU
[2023-10-03 12:03] VITALS: BP 119/78; PULSE 85; RESP 18; TEMP 36.4; O2SAT 95; BMI 31.2
[2023-10-03] MEDS: Lactated Ringers 1,000 ML 100 ML IVCONT (12:09)
--- NOTE | 2023-10-03 12:56 | PM.OP ---
Brief Operative Note Date of Service: 10/03/23 Pre-op diagnosis: Dysphagia Post-op diagnosis: other (Hiatal hernia, R/O EoE) Procedure: EGD with balloon dilation 18 to 19 to 20mm, and biopsies Surgeon: Tre Moody MD Anesthesia: MAC Was an Prints And Drawings Curator used for this Procedure?: No Estimated blood loss (mL): 2.0 Pathology: other (A. Esophagus 20-25cm) Condition: stable Disposition: PACU
[2023-10-03 12:58] VITALS: BP 88/50; PULSE 71; RESP 16; TEMP 36.1; O2SAT 95
[2023-10-03 13:22] VITALS: BP 131/81; PULSE 71; RESP 17; TEMP 36.1; O2SAT 96
--- NOTE | 2023-10-03 13:35 | OP_ITS ---
DATE OF SERVICE: 10/03/2023 SURGEON: Tre Moody MD INDICATIONS: The patient presents for evaluation of dysphagia. Full consent has been obtained from him for this, including risks of bleeding and perforation. PREOPERATIVE DIAGNOSIS: Dysphagia. POSTOPERATIVE DIAGNOSIS: Dysphagia, small hiatal hernia, rule out eosinophilic esophagitis. PROCEDURE PERFORMED: Esophagogastroduodenoscopy with balloon dilation of gastroesophageal junction and biopsies. ESTIMATED BLOOD LOSS: COMPLICATIONS: ANESTHESIA: Monitored anesthesia care. ASSISTANTS: SPECIMENS: DESCRIPTION OF PROCEDURE: The patient was placed in the left lateral decubitus position. The Olympus video gastroscope was passed in the posterior oropharynx and upper esophagus under direct vision. The scope was passed slowly to the distal esophagus. The gastroesophageal junction appeared normal at 38 cm. With insufflation of air, the gastroesophageal junction opened widely and did not reveal any evidence of any definitive stricture nor ring. The scope easily entered into the stomach. There was a small hiatal hernia. The scope was advanced to the pylorus. The duodenum was cannulated to the descending portion. The duodenum including the bulb appeared normal without mass or ulceration, although the duodenal bulb did have some deformity consistent with his previous history of ulcer disease. The pyloric channel appeared to be somewhat deformed as well. The scope was withdrawn back in the stomach. The gastric antrum and body appeared normal with good peristalsis. The scope was retroflexed visualizing the proximal stomach carefully, which appeared normal, without any sign of mass or ulceration. The scope was straightened and withdrawn back in the esophagus. Given the symptomatology, I did use a [employer] incremental balloon to dilate the gastroesophageal junction from 18 mm to 19 mm to 20 mm at the recommended pressure for between 30 and 60 seconds each. Post-dilation, there was really no appreciable heme noted nor any change in the gastroesophageal junction. The scope was withdrawn through the remainder of the esophagus, which appeared normal. Biopsies were obtained between 20 and 25 cm to rule out eosinophilic esophagitis. There were no proximal esophageal rings. The scope was withdrawn from the patient. He tolerated the procedure well and was returned to the recovery area in stable condition. IMPRESSION: 1. Small hiatal hernia, status post balloon dilation of gastroesophageal junction. 2. Rule out eosinophilic esophagitis. 3. Somewhat deformed duodenal bulb and pylorus consistent with his previous history of peptic ulcer disease. PLAN: The patient recently just started omeprazole, and I advised him to continue that to treat any component of acid reflux and esophageal spasm. He was advised to resume his aspirin tomorrow. He will be seen in the office for a followup visit but was given instructions to call me prior to that if he has any persistent or worsening problems with swallowing. If things remain problematic, we may need to proceed with a barium swallow and/or esophageal motility study. This has been discussed with his niece, Teresita. MD GINA Stallings/GOGO / [id number] MTDBhaskar
== END 2023-10-03 13:49 | disposition home or self-care (01) ==
PROVIDERS: PCP Internal Medicine; Visit Provider Internal Medicine
PROC: (CPT 43249; principal; 2023-10-03 12:20)
DX: K44.9 Diaphragmatic hernia without obstruction or gangrene (principal); K21.9 Gastro-esophageal reflux disease without esophagitis; R13.19 Other dysphagia; I12.9 Hypertensive chronic kidney disease with stage 1 through stage 4 chronic kidney disease, or unspecified chronic kidney disease; N18.9 Chronic kidney disease, unspecified; E78.5 Hyperlipidemia, unspecified; R97.20 Elevated prostate specific antigen [PSA]; I25.10 Atherosclerotic heart disease of native coronary artery without angina pectoris; G47.33 Obstructive sleep apnea (adult) (pediatric); Z99.89 Dependence on other enabling machines and devices; Z87.891 Personal history of nicotine dependence; Z79.899 Other long term (current) drug therapy; Z79.82 Long term (current) use of aspirin
CPT/HCPCS: 43249; 43239; 88305; C1726; J2704

== ENCOUNTER 2023-10-22 11:54 | Outpatient (REF) | payer MEDICARE, SELFPAY | END 2023-10-22 11:55 | disposition home or self-care (01) | LOC: HO.LNP 11:54 | PROVIDERS: PCP Internal Medicine; Visit Provider Nurse Practitioner Family | DX: I10 Essential (primary) hypertension (principal); N48.1 Balanitis; N39.0 Urinary tract infection, site not specified; N40.1 Benign prostatic hyperplasia with lower urinary tract symptoms; B49 Unspecified mycosis; Z79.899 Other long term (current) drug therapy | CPT/HCPCS: 51798; 81003; 87086; 87088; 87186; 99212 ==

== ENCOUNTER 2023-10-22 11:54 | Outpatient (AMB) | payer MEDICARE, SELFPAY ==
--- NOTE | 2023-10-22 11:56 | MHC.OFFVIS ---
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 [employer] Processing Required: No Accompanied by: Self / Same As Patient Allergies No Known Allergies [No Known Allergies*] Allergy (Verified 10/23/23 00:51) Medication List - Last Reconciled 10/23/23 by TOYA YoungP- allopurinol 150 mg PO DAILY aspirin 81 mg PO DAILY atorvastatin 40 mg PO DAILY betamethasone dipropionate 0.05% 1 appl topical BID carvedilol (Coreg) 3.125 mg PO BID cetirizine (Zyrtec) 10 mg PO DAILY PRN clotrimazole-betamethasone 1-0.05 % 1 appl topical BID 4 weeks CPAP (CPAP Machine/Device) As directed diphenhydramine-acetaminophen 25-500 mg (Tylenol PM Extra Strength) 1 tab PO BEDTIME PRN fluconazole 150 mg PO Q3D 2 doses furosemide 40 mg PO DAILY omeprazole 40 mg PO DAILY [Shower chair As directed] tamsulosin 0.4 mg PO DAILY 90 days [Walker As directed] HPI HPI Comments History of Present Illness Details Bryce Alvarez is a pleasant 78-year-old male patient of Dr. Valentin. He has a past medical history of hypertension, gastric ulcer, gout, hyperlipidemia, obesity, GEOVANNI, pulmonary hypertension, and renal insufficiency. He presents to the office today for balanitis. In discussion with the patient today he reports noting penile rash approximately 1 month ago. In assessment of the patient today penis is uncircumcised. Foreskin of uncircumcised penis was retracted and penile gland appears reddened throughout. When asked he does report to be washing area with soap. No lesions, drainage, and or foul smell noted. Discussed at length potential causes of balanitis. He otherwise denies any bothersome urinary issues or concerns. He denies urinary urgency, urinary frequency, incontinence, nocturia, hematuria, dysuria, foul smelling urine, changes to urinary stream, flank pain, fever, and or chills. He is happy with his current voiding parameters on 0.4mg of flomax daily. In office urinalysis results reviewed with the patient today. Positive nitrates. He denies any UTI like symptoms at this time. Discussed further assessment evaluation with urine culture. PVR 0 mL. He otherwise offers no other issues or concerns at this time. [facility] Medical History GEOVANNI (obstructive sleep apnea) Obesity (BMI 30.0-34.9) Renal insufficiency Hx of skin pruritus Gout Gastric ulcer Obesity Pulmonary hypertension Essential hypertension HLD (hyperlipidemia) Surgical History H/O colonoscopy H/O foot surgery History of cataract surgery Family History Father No problems noted. Mother Colon cancer Sister Colon cancer Brother Stomach cancer Social History Housing: House Alcohol intake: never Comment: 2 MTHS AGO Patient Tobacco Use Status: Former Tobacco user Quit Date: 50 e-Cigarette/Vaping Use: Never Used Second Hand Smoke Exposure: No Advance Directives Date on File: 08/23/20 service: No Current occupational status: retired Cognitive needs: No Hearing needs: No Vision needs: Yes Review of Systems Const Reports as per HPI Eyes Reports no additional complaints ENT Reports no additional complaints Card Reports as per HPI Resp Reports as per HPI GI Reports as per HPI Reports as per HPI Neuro Reports no additional complaints Psych Reports no additional complaints Endo Reports no additional complaints Jose Antonio/Lymph Reports no additional complaints Aller/Immun Reports no additional complaints Physical Exam Const General: cooperative Orientation/consciousness: patient oriented x3 Resp Effort & Inspection: able to speak in complete sentences Male General Exam: Yes normal external exam Penis: uncircumcised and other (penile gland inflamed with areas or redness.) Meatus: meatus normal Scrotum: scrotum normal Testes: Testes normal Neuro General: patient oriented x3 Psych Speech and movement: Clear speech present Attitude: cooperative Thought content: Normal thought content present Insight: Fair insight present (Psych) Judgement: Fair judgement present (Psych) Office Procedures Post Void Residual Post Residual Void Post Void Residual (PVR): 0 [id number] Void Residual by ultrasound Results AMB Urinalysis, Automated UA Leukoctes 70 Maira/uL Last Edit by Kathryn Pelletier on 10/22/23 12:14 UA Nitrite Positive Last Edit by Kathryn Pelletier on 10/22/23 12:14 UA Urobilinogen 0.2 mg/dL Last Edit by Kathryn Pelletier on 10/22/23 12:14 UA Protein 15 mg/dL Last Edit by Kathryn Pelletier on 10/22/23 12:14 UA pH 6.0 Last Edit by Kathryn Pelletier on 10/22/23 12:14 UA Blood 10 Mundo/uL Last Edit by Kathryn Pelletier on 10/22/23 12:14 UA Specific [place] 1.025 Last Edit by Kathryn Pelletier on 10/22/23 12:14 UA Ketone Negative Last Edit by Kathryn Pelletier on 10/22/23 12:14 UA Bilirubin 0 mg/dL Last Edit by Kathryn Pelletier on 10/22/23 12:14 UA Glucose 0 mg/dL Last Edit by Kathryn Pelletier on 10/22/23 12:14 Results Reviewed Results Reviewed: Laboratory Last Values Urine pH (Auto) 6.0 10/22/23 12:02 Specific [place] (Auto) 1.025 10/22/23 12:02 Urine Protein (Auto) 15 mg/dL 10/22/23 12:02 Glucose (UA)(Auto) 0 mg/dL 10/22/23 12:02 Urine Ketones (Auto) Negative 10/22/23 12:02 Urine Blood (Auto) 10 Mundo/uL 10/22/23 12:02 Urine Nitrite (Auto) Positive 10/22/23 12:02 Urine Bilirubin (Auto) 0 mg/dL 10/22/23 12:02 Urine Urobilinogen (Auto) 0.2 mg/dL 10/22/23 12:02 Leukocyte Esterase (Auto) 70 Maira/uL 10/22/23 12:02 Assessment & Plan Assessment & Plan (1) Balanitis: Code(s): N48.1 - Balanitis (2) Urinary tract infection: Code(s): N39.0 - Urinary tract infection, site not specified Plan In office urinalysis results reviewed with the patient today; as noted above; will send for urine culture. PVR 0 mL. Patient denies any bothersome urinary issues at this time. Patient reports be happy with current voiding parameters on 0.4 mg of Flomax daily. Start clotrimazole-betamethasone as discussed and prescribed. Discussed gently pulling back foreskin in washing penis with warm water only in avoid using excessive soap products in this area Discussed obtaining PSA prior to next appointment as scheduled Discussed, educated, encouraged on the importance of drinking water daily. Keep scheduled follow-up and get PSA prior as planned at last follow up; or sooner with any issues, concerns, and or questions. Orders: Orders AMB Urinalysis Automated 10/22/23 Z13.9 - Encounter for screening, unspecified AMB Post Void Residual by ultrasound 10/22/23 N13.8 - Other obstructive and reflux uropathy, N40.1 - Benign prostatic hyperplasia with lower urinary tract symptoms Urine Culture 10/22/23 Z13.9 - Encounter for screening, unspecified Medications: New fluconazole 150 mg PO Q3D 2 doses 2 tabs 0RF B49 - Unspecified mycosis clotrimazole-betamethasone 1-0.05 % Apply thin coat 2 times per day 1 appl topical BID 4 weeks 45 grams 0RF N48.1 - Balanitis Patient Instructions: The patient had an opportunity to ask questions regarding the treatment plan. All questions were answered. Physical exam, labs, and imaging were discussed and reviewed in detail. As well as risks, benefits, and discussion of treatment choices. No major barriers to understanding were identified. The patient expressed understanding and agreement with the above treatment plan. The patient was made aware they should contact our office by phone for worsening of their current condition, the appearance of new symptoms, or with any questions or concerns. Compliance is encouraged with any medications and follow up testing that is ordered. It is a privilege to be allowed the opportunity to participate in? your urological care.? Again, if you have any questions or concerns If you have any questions or concerns please do not hesitate to contact me. The office is [phone]. This note is constructed using voice recognition software. While every effort has been made to ensure accuracy melter supervisor open hearth furnace errors may have been included. Yours sincerely, MAY Young Coding Level of Care Code Est Pt Level 4 (93016) Diagnoses Balanitis N48.1 Urinary tract infection N39.0 CPT Codes Post Residual Void - PVR CPT Code: 07646-Oumw Void Residual by ultrasound ([id number])
== END 2023-10-22 12:35 | disposition home or self-care (01) ==
PROVIDERS: PCP Internal Medicine; Visit Provider Nurse Practitioner Family
DX: N48.1 Balanitis (principal); N39.0 Urinary tract infection, site not specified
CPT/HCPCS: 99214

== ENCOUNTER → 2023-12-03 07:57 | Outpatient (BNV) | payer MEDICARE, SELFPAY | PROVIDERS: PCP Internal Medicine; Visit Provider Radiology Diagnostic Radiology | DX: R13.10 Dysphagia, unspecified (principal) | CPT/HCPCS: 74221 ==

== ENCOUNTER 2023-12-03 08:54 | Outpatient (REF) | payer MEDICARE, SELFPAY ==
--- NOTE | ~2023-12-03 | FL_ITS ---
EXAMINATION: FL BARIUM SWALLOW CLINICAL INFORMATION: Dysphagia COMPARISON: None TECHNIQUE: Fluoroscopic air contrast upper GI examination was performed utilizing standard techniques with thin and thick barium and effervescent granules. Numerous spot images were obtained. FINDINGS: Lateral cine images of the oropharynx and hypopharynx demonstrate normal swallow mechanism with normal epiglottic inversion and soft palate elevation. No tracheal penetration, glottic or subglottic aspiration identified. No nasopharyngeal reflux present. There is [id number] ballooning of the hypopharynx. Moderate cricopharyngeal achalasia is present. A small Zenker's diverticulum is present which retains barium. Dual and single contrast images of the esophagus demonstrate normal caliber, contour, and mucosal pattern. No evidence of stricture, mass, or ulcerations identified. To and fro motion of the barium column is seen. Extensive nonpropulsive tertiary contractions are noted throughout the esophagus. A barium tablet was easily swallowed and passed through the esophagus and into the stomach without difficulty. Small to moderate-sized type I hiatal hernia is present. No significant gastroesophageal reflux was seen during the course of the examination and on reflux views. FLUOROSCOPY TIME: 4 minutes 31 seconds Number of Spot Images: 6 Number of Cine: 10 DOSE AREA PRODUCT: 2217 uGy-m2 (microgray-meter squared) FL/FL barium swallow IMPRESSION: 1. Moderate cricopharyngeal achalasia. 2. A small Zenker's diverticulum is present. 3. Rather marked esophageal dysmotility. 4. Small to moderate-sized type I hiatal hernia. This procedure was performed by Akil Marroquin PA-C, and supervised by Dr. Jiang
[2023-12-03 10:56] LABS: PSA,Total (Free>4and<10) 1.22 ng/mL (0.00-4.00)
== END 2023-12-03 08:55 | disposition home or self-care (01) ==
LOC: HO.XRAY 08:54
PROVIDERS: Nurse Practitioner Family; PCP Internal Medicine; Visit Provider Internal Medicine
DX: N40.1 Benign prostatic hyperplasia with lower urinary tract symptoms (principal); N13.8 Other obstructive and reflux uropathy; R97.20 Elevated prostate specific antigen [PSA]; R13.14 Dysphagia, pharyngoesophageal phase; Z12.5 Encounter for screening for malignant neoplasm of prostate
CPT/HCPCS: 36415; 74220; 84153

== ENCOUNTER 2023-12-17 10:31 | Outpatient (AMB) | payer MEDICARE, SELFPAY ==
--- NOTE | 2023-12-17 10:36 | MHC.OFFVIS ---
Intake Intake Visit Reasons: 6m/labs Intake Note: Patient is present for follow up recurrent uti, balanitis, and psa lab PSA: 1.22 Urology Medication: previously treated with fluconazole and clotrimazole, Tamsulosin Antibiotic Allergy: None Blood Thinner: None PVR: 27ml's Director [employer] Required: No Accompanied by: Self / Same As Patient Allergies No Known Allergies [No Known Allergies*] Allergy (Verified 12/17/23 12:10) Medication List - Last Reconciled 12/17/23 by FEMI Young- allopurinol 150 mg PO DAILY aspirin 81 mg PO DAILY atorvastatin 40 mg PO DAILY carvedilol (Coreg) 3.125 mg PO BID cetirizine (Zyrtec) 10 mg PO DAILY PRN CPAP (CPAP Machine/Device) As directed diphenhydramine-acetaminophen 25-500 mg (Tylenol PM Extra Strength) 1 tab PO BEDTIME PRN furosemide 40 mg PO DAILY omeprazole 40 mg PO DAILY [Shower chair As directed] tamsulosin 0.4 mg PO DAILY 90 days [Walker As directed] HPI HPI Comments History of Present Illness Details Bryce Alvarez is a pleasant 78-year-old male patient of Dr. Valentin. He has a past medical history of hypertension, gastric ulcer, gout, hyperlipidemia, obesity, GEOVANNI, pulmonary hypertension, and renal insufficiency. He presents to the office today for a follow-up. Of note, patient was seen approximately 1 month ago for balanitis, elevated PSA, and urinary tract infection. In discussion with the patient today he reports to be doing and feeling much better since his last office visit here approximately 1 month ago. He reports balanitis has since resolved. 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 When asked he does report episodes of urinary frequency however relates this to his diuretic. He otherwise denies any bothersome urinary issues or concerns. In office urinalysis results reviewed with the patient today. PVR 27ml's. Recent PSA results reviewed with the patient today as noted and trended below. Discussed at length potential causes for increase in PSA in July 2023. When asked he denies incontinence, nocturia, hematuria, dysuria, foul smelling urine, changes to urinary stream, flank pain, fever, and or chills. He is happy with his current voiding parameters on 0.4mg of flomax daily. He otherwise offers no other issues or concerns at this time. PSAs: 09/05 1.6, 09/06 1.8, 09/07 1.5, 08/11 6.0, 12/12 1.2 PFSH Medical History GEOVANNI (obstructive sleep apnea) Obesity (BMI 30.0-34.9) Renal insufficiency Hx of skin pruritus Gout Gastric ulcer Obesity Pulmonary hypertension Essential hypertension HLD (hyperlipidemia) Surgical History H/O colonoscopy H/O foot surgery History of cataract surgery Family History Father No problems noted. Mother Colon cancer Sister Colon cancer Brother Stomach cancer Social History Housing: House Alcohol intake: never Comment: 2 MTHS AGO Patient Tobacco Use Status: Former Tobacco user Quit Date: e-Cigarette/Vaping Use: Never Used Second Hand Smoke Exposure: No Advance Directives Date on File: 08/23/20 service: No Current occupational status: retired Cognitive needs: No Hearing needs: No Vision needs: Yes Review of Systems Const Reports as per HPI Eyes Reports no additional complaints ENT Reports no additional complaints Card Reports as per HPI Resp Reports as per HPI GI Reports as per HPI Reports as per HPI Neuro Reports no additional complaints Psych Reports no additional complaints Endo Reports no additional complaints Jose Antonio/Lymph Reports no additional complaints Aller/Immun Reports no additional complaints Physical Exam Const General: cooperative Orientation/consciousness: patient oriented x3 Resp Effort & Inspection: able to speak in complete sentences Male General Exam: Yes normal external exam Penis: uncircumcised and other (penile gland inflamed with areas or redness.) Meatus: meatus normal Scrotum: scrotum normal Testes: Testes normal Neuro General: patient oriented x3 Psych Speech and movement: Clear speech present Attitude: cooperative Thought content: Normal thought content present Insight: Fair insight present (Psych) Judgement: Fair judgement present (Psych) Office Procedures Post Void Residual Post Residual Void Post Void Residual (PVR): 27 21636-Fqrt Void Residual by ultrasound Results AMB Urinalysis, Automated UA Leukoctes 0 Maira/uL Last Edit by Kathryn Pelletier on 12/17/23 10:45 UA Nitrite Negative Last Edit by Kathryn Pelletier on 12/17/23 10:45 UA Urobilinogen 0.2 mg/dL Last Edit by Kathryn Pelletier on 12/17/23 10:45 UA Protein 15 mg/dL Last Edit by Kathryn Pelletier on 12/17/23 10:45 UA pH 6.0 Last Edit by Kathryn Pelletier on 12/17/23 10:45 UA Blood 0 Mundo/uL Last Edit by Kathryn Pelletier on 12/17/23 10:45 UA Specific [place] 1.030 Last Edit by Kathryn Pelletier on 12/17/23 10:45 UA Ketone Negative Last Edit by Kathryn Pelletier on 12/17/23 10:45 UA Bilirubin 1 mg/dL Last Edit by Kathryn Pelletier on 12/17/23 10:45 UA Glucose 0 mg/dL Last Edit by Kathryn Pelletier on 12/17/23 10:45 Results Reviewed Results Reviewed: Laboratory Last Values Urine pH (Auto) 6.0 12/17/23 10:37 Specific [place] (Auto) 1.030 12/17/23 10:37 Urine Protein (Auto) 15 mg/dL 12/17/23 10:37 Glucose (UA)(Auto) 0 mg/dL 12/17/23 10:37 Urine Ketones (Auto) Negative 12/17/23 10:37 Urine Blood (Auto) 0 Mundo/uL 12/17/23 10:37 Urine Nitrite (Auto) Negative 12/17/23 10:37 Urine Bilirubin (Auto) 1 mg/dL 12/17/23 10:37 Urine Urobilinogen (Auto) 0.2 mg/dL 12/17/23 10:37 Leukocyte Esterase (Auto) 0 Maira/uL 12/17/23 10:37 Assessment & Plan Assessment & Plan (1) Elevated PSA: Code(s): R97.20 - Elevated prostate specific antigen [PSA] (2) Balanitis: Code(s): N48.1 - Balanitis (3) Urinary tract infection: Code(s): N39.0 - Urinary tract infection, site not specified Plan In office urinalysis results reviewed with the patient today; as noted above; PVR 27 mL. Patient denies any bothersome urinary issues at this time. Patient reports be happy with current voiding parameters on 0.4 mg of Flomax daily. Balanitis has since improved PSA has since returned to baseline; as noted above. Discussed, educated, encouraged on the importance of drinking water daily. Discussed obtaining retroperitoneal ultrasound if symptoms arise. Will obtain PSA in 1 year. Follow-up in 1 year with lab to be completed prior; or sooner with any issues, concerns, and or questions. Orders: Orders AMB Post Void Residual by ultrasound Today N39.0 - Urinary tract infection, site not specified AMB Urinalysis Automated Today Z13.9 - Encounter for screening, unspecified Prostate Specific Antigen 364 Days R97.20 - Elevated prostate specific antigen [PSA] Patient Instructions: The patient had an opportunity to ask questions regarding the treatment plan. All questions were answered. Physical exam, labs, and imaging were discussed and reviewed in detail. As well as risks, benefits, and discussion of treatment choices. No major barriers to understanding were identified. The patient expressed understanding and agreement with the above treatment plan. The patient was made aware they should contact our office by phone for worsening of their current condition, the appearance of new symptoms, or with any questions or concerns. Compliance is encouraged with any medications and follow up testing that is ordered. It is a privilege to be allowed the opportunity to participate in? your urological care.? Again, if you have any questions or concerns If you have any questions or concerns please do not hesitate to contact me. The office is [phone]. This note is constructed using voice recognition software. While every effort has been made to ensure accuracy garment parts cutter hand errors may have been included. Yours sincerely, MAY Young Coding Level of Care Code Est Pt Level 4 (15064) Diagnoses Elevated PSA R97.20 Balanitis N48.1 Urinary tract infection N39.0 CPT Codes Post Residual Void - PVR CPT Code: 77358-Eudv Void Residual by ultrasound ([id number])
== END 2023-12-17 11:04 | disposition home or self-care (01) ==
PROVIDERS: PCP Internal Medicine; Visit Provider Nurse Practitioner Family
DX: R97.20 Elevated prostate specific antigen [PSA] (principal); N48.1 Balanitis; N39.0 Urinary tract infection, site not specified; Z13.9 Encounter for screening, unspecified
CPT/HCPCS: 99214

== ENCOUNTER → 2023-12-17 10:31 | Outpatient (BNVA) | payer MEDICARE, SELFPAY | PROVIDERS: PCP Internal Medicine; Visit Provider Nurse Practitioner Family | DX: R97.20 Elevated prostate specific antigen [PSA] (principal); N48.1 Balanitis; N39.0 Urinary tract infection, site not specified | CPT/HCPCS: 51798; 81003; 99212 ==

== ENCOUNTER 2024-03-12 14:17 | Outpatient (AMB) | payer MEDICARE, SELFPAY ==
--- NOTE | 2024-03-12 14:19 | A.OFFPC_ITS ---
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 per policy Accompanied by: Self / Same As Patient Allergies allopurinol Adverse Reaction (Mild, Verified 03/12/24 14:31) Rash atorvastatin Adverse Reaction (Mild, Verified 03/12/24 14:31) Rash Medication List - Last Reconciled 03/13/24 by Irving Valentin MD aspirin 81 mg PO DAILY carvedilol (Coreg) 3.125 mg PO BID CPAP (CPAP Machine/Device) As directed diphenhydramine-acetaminophen 25-500 mg (Tylenol PM Extra Strength) 1 tab PO BEDTIME PRN furosemide 40 mg PO DAILY omeprazole 40 mg PO DAILY [Shower chair As directed] tamsulosin 0.4 mg PO DAILY 90 days [Walker As directed] Tobacco use date assessed: 03/12/24 Fall risk assessment: No Falls in past year Last assessed Fall Risk: 03/12/24 Dental Screening Dental Screen Date: 03/12/24 Did you have a dental visit in the last 12 months?: Yes Did you have a dental problem in the last 6 months where you did not have access to dental care?: No Was dental information given to patient?: Patient has dentist HPI 6mth f/u HPI Details HTN on Rx; doing well and compliant [facility] Medical History GEOVANNI (obstructive sleep apnea) Obesity (BMI 30.0-34.9) Renal insufficiency Hx of skin pruritus Gout Gastric ulcer Obesity Pulmonary hypertension Essential hypertension HLD (hyperlipidemia) Surgical History H/O colonoscopy H/O foot surgery History of cataract surgery Family History Father No problems noted. Mother Colon cancer Sister Colon cancer Brother Stomach cancer Social History Housing: House Alcohol intake: never Comment: 2 MTHS AGO Patient Tobacco Use Status: Former Tobacco user Quit Date: 48 e-Cigarette/Vaping Use: Never Used Second Hand Smoke Exposure: No Advance Directives Date on File: 08/23/20 service: No Current occupational status: retired Cognitive needs: No Hearing needs: No Vision needs: Yes Questionnaire PHQ-9 Over the last 2 weeks, how often have you been bothered by any of the following problems? 1. Little interest or pleasure in doing things: not at all 2. Feeling down, depressed, or hopeless: not at all 3. Trouble falling or staying asleep, or sleeping too much: not at all 4. Feeling tired or having little energy: not at all 5. Poor appetite or overeating: not at all 6. Feeling bad about yourself - or that you are a failure or have let yourself or your family down: not at all 7. Trouble concentrating on things, such as reading the newspaper or watching television: not at all 8. Moving or speaking so slowly that other people could have noticed. Or the opposite - being so fidgety or restless that you have been moving around a lot more than usual: not at all 9. Thoughts that you would be better off or of hurting yourself in some way: not at all Total score: 0 Depression Screening Interpretation: Negative Depression Screening Done: Yes 29592 - PHQ-9 Billing: Yes Source: Developed by Drs. Tre Salvador, Ruth Conrad, Talib Gregory and colleagues, with an educational arnoldo from [employer]. Thrive Questionnaire Date Thrive assessed: 03/12/24 I am a: Patient What is your living situation today?: I have a steady place to live Within the past 12 months, did the food you bought not last and you didn't have the money to get more?: Never true Within the past 12 months, did you worry whether your food would run out before you got money to buy more?: Never true Do you have trouble paying for medicines?: No Do you have trouble getting transportation to medical appointments?: No Do you have trouble paying your heating and electricity bill?: No Do you have trouble taking care of your child, family member or friend?: No Do you have trouble with day-to-day activities such as bathing, preparing meals, shopping, managing finances, etc.?: No Are you currently unemployed and looking for a job?: No Are you interested in more education?: No Please select the resources that you would like help with: None THRIVE Score: 0 AUDIT C Alcohol Use Questionnaire (AUDIT-C) 1. How often do you have a drink containing alcohol?: Never Total Score: 0 RACHEL-7 AMB Questionnaire RACHEL-7 Date RACHEL - 7 assessed: 03/12/24 Feeling nervous, anxious, or on edge: 0 = Not at all Not being able to stop or control worryin = Not at all Worrying too much about different things: 0 = Not at all Trouble relaxin = Not at all Being so restless that it is hard to sit still: 0 = Not at all Becoming easily annoyed or irritable: 0 = Not at all Feeling afraid as if something awful might happen: 0 = Not at all Total RACHEL-7 score (0-4 normal; 5-9 mild; 10-14 moderate; 15-21 severe): 0 Source: Developed by Drs. Tre Salvador, Ruth Conrad, Talib Gregory and colleagues, with an educational anroldo from [employer]. Review of Systems Const Denies chills, Denies headache(s) and Denies weight loss ENT Denies headache(s) Card Denies chest pain, Denies syncope, Denies irregular heart rhythm and Denies dyspnea Resp Denies chest congestion, Denies cough and Denies dyspnea GI Denies abdominal pain, Denies change in stool character, Denies nausea and Denies vomiting Musc Denies deformity and Denies joint swelling Neuro Denies syncope and Denies headache(s) Physical exam (Primary Care) Vital Signs: Last Vital Signs Pulse 75 03/12/24 14:20 BP 120/82 03/12/24 14:20 Pulse Ox 94 03/12/24 14:20 Oxygen Delivery Method Room Air 03/12/24 14:20 BMI result Body Mass Index 29.8 Tobacco/Smoking Status: Tobacco use Status Tobacco use date assessed 03/12/24 03/12/24 14:21 Patient Tobacco Use Status Former Tobacco user 03/12/24 14:21 Tobacco use type 08/22/23 16:24 e-Cigarette/Vaping Use Never Used 03/12/24 14:21 PHQ-9: PHQ-9 Score PHQ-9: Total score 0 03/12/24 14:30 Depression Screening Interpretation: Negative Thrive Assessment: Date of Thrive Assessment Date Thrive assessed 03/12/24 03/12/24 14:21 Const General: cooperative, comfortable, no acute distress and alert Neck Neck: Yes no lymphadenopathy Thyroid: Thyroid normal Resp Effort & Inspection: normal respiratory effort Auscultation: clear to auscultation bilaterally Percussion: percussion normal Cardio Jugular venous distension: no JVD Palpation: normal PMI Rate: regular rate Rhythm: regular rhythm Heart sounds: S1 normal heart sound present and S2 normal heart sound present GI Inspection: Yes normal to inspection Palpation (GI): No hepatosplenomegaly present Skin General skin exam: no rashes or lesions noted Extrem General: Yes no clubbing, cyanosis or edema Assessment and Plan Assessment & Plan (1) Essential hypertension: Code(s): I10 - Essential (primary) hypertension Plan: stable; same rx Orders: Orders Lipid Panel 03/12/24 Z13.220 - Encounter for screening for lipoid disorders Complete Blood Count Auto Diff 03/12/24 Z13.0 - Encounter for screening for diseases of the blood and blood-forming organs and certain disorders involving the immune mechanism Uric Acid 03/12/24 M10.9 - Gout, unspecified Coding Level of Care Code Est Pt Level 3 (55496) Diagnoses Essential hypertension I10
[2024-03-12 14:20] VITALS: BP 120/82; PULSE 75; O2SAT 94; BMI 29.8
== END 2024-03-12 14:47 | disposition home or self-care (01) ==
PROVIDERS: PCP Internal Medicine; Visit Provider Internal Medicine
DX: I10 Essential (primary) hypertension (principal)
CPT/HCPCS: 99213

== ENCOUNTER 2024-03-13 15:33 | Outpatient (AMB) | payer MEDICARE, SELFPAY ==
[2024-03-13 15:39] VITALS: BP 130/84; PULSE 97; O2SAT 95
--- NOTE | 2024-03-13 15:39 | A.OFFVIS_ITS ---
Vital Signs 03/13/24 15:39 Height 5 ft 11 in Weight 214 lb 15.211 oz BMI 30.0 BP 130/84 Blood Pressure Location Lt brachial Position Sitting Pulse 97 Pulse Source Pulse Oximeter Pulse Oximetry (%) 95 Oxygen Delivery Method Room Air Intake Visit Reasons: geovanni Intake Note: pt is here for follow up and states he is doing okay and finally getting use of using it. Sample Maker Original Required: No Allergies allopurinol Adverse Reaction (Mild, Verified 03/13/24 15:57) Rash atorvastatin Adverse Reaction (Mild, Verified 03/13/24 15:57) Rash Medication List - Last Reconciled 03/13/24 by Karla Kwan MD aspirin 81 mg PO DAILY carvedilol (Coreg) 3.125 mg PO BID CPAP (CPAP Machine/Device) As directed diphenhydramine-acetaminophen 25-500 mg (Tylenol PM Extra Strength) 1 tab PO BEDTIME PRN furosemide 40 mg PO DAILY omeprazole 40 mg PO DAILY [Shower chair As directed] tamsulosin 0.4 mg PO DAILY 90 days [Walker As directed] Do you need a note to return to daycare/school/sports/work: No HPI HPI geovanni: Details: Bryce is coming after 6 months for a follow-up visit. He has been using CPAP more regularly, every night, and skipped only 3 nights during the last month. Average usage is above 5 hours per night. He does not feel like having any noise or air leak. He thinks he is getting good use of the CPAP. Denies any excessive daytime sleepiness. He has no chronic obstructive pulmonary disease. PENDING SALE TO [facility] Medical History GEOVANNI (obstructive sleep apnea) Obesity (BMI 30.0-34.9) Renal insufficiency Hx of skin pruritus Gout Gastric ulcer Obesity Pulmonary hypertension Essential hypertension HLD (hyperlipidemia) Surgical History H/O colonoscopy H/O foot surgery History of cataract surgery Family History Father No problems noted. Mother Colon cancer Sister Colon cancer Brother Stomach cancer Social History Housing: House Alcohol intake: never Comment: 2 MTHS AGO Patient Tobacco Use Status: Former Tobacco user Quit Date: 48 e-Cigarette/Vaping Use: Never Used Second Hand Smoke Exposure: No Advance Directives Date on File: 08/23/20 service: No Current occupational status: retired Cognitive needs: No Hearing needs: No Vision needs: Yes Review of Systems Const All systems reviewed & are unremarkable except as noted in HPI and below Eyes Reports no additional complaints ENT Reports no additional complaints Card Denies chest pain, Denies irregular heart rhythm, Reports leg edema and Reports dyspnea on exertion Resp Denies cough, Reports dyspnea on exertion and Denies wheezing GI Reports no additional complaints Reports nocturia Musc Reports no additional complaints and Reports abnormal gait (GAIT IS SLIGHTLY SLOW AND HE USES A CANE) Skin/Breast Reports rash (NONSPECIFIC SKIN CONDITION SINCE LAST YEAR) Neuro Reports abnormal gait (GAIT IS SLIGHTLY SLOW AND HE USES A CANE) Psych Reports depression (MILD) Endo Reports no additional complaints Jose Antonio/Lymph Reports no additional complaints Aller/Immun Denies wheezing Physical Exam Vital Signs: Last Vital Signs Pulse 97 03/13/24 15:39 BP 130/84 03/13/24 15:39 Pulse Ox 95 03/13/24 15:39 Oxygen Delivery Method Room Air 03/13/24 15:39 BMI result Body Mass Index 30.0 Const Other: HE IS MODERATELY OBESE, SLOW IN WALKING. General: comfortable, no acute distress, alert and awake Orientation/consciousness: patient oriented x3 HEENT Head: Yes normal to inspection General nose exam: No nasal polyps present and No nasal discharge present Face and sinus: Yes sinuses nontender Mouth: oropharynx abnormals (MODERATELY NARROW AND CROWDED. MALLAMPATI SCALE 3.) Throat: Yes posterior oropharynx normal Eyes General: appearance normal, both eyes and all related structures Neck Neck: Yes normal visual inspection, Yes no lymphadenopathy, Yes trachea midline, Yes no JVD and Yes other (NECK CIRCUMFERENCE 17 IN) Thyroid: Thyroid normal Chest Chest palpation & inspection: normal inspection of the chest, normal palpation of entire chest wall and no tenderness Resp Other: PERCUSSION NOTE IS RESONANT, HE HAS EQUAL BREATH SOUNDS ON BOTH SIDES. BREATH SOUNDS ARE VESICULAR. NO WHEEZES OR CREPITATIONS ARE HEARD. Cardio Palpation: normal PMI Rate: regular rate Rhythm: regular rhythm Heart sounds: no gallops and no murmurs GI Palpation (GI): Soft to palpation, nontender, No hepatosplenomegaly present and no masses Auscultation: normal bowel sounds Back/Spine/Pelvis Thoracic/Lumbar Spine: thoracic and lumbar spine normal to inspection Skin General skin exam: other (HE HAS GENERALIZED, NONSPECIFIC RASH ON HIS TRUNK AND ALL ARMS.) Neuro General: patient oriented x3, No gait normal (MOSTLY NORMAL BUT SLOW AND HE HAS TO USE CANE) and no focal motor deficits Cranial nerves: Yes CN's II-XII intact bilaterally Extrem General: Yes normal to inspection, Yes no calf tenderness and Yes edema (Only minimal degree of edema around the ankles.) Psych Appearance: grossly normal and well kempt Speech and movement: Normal speech and movement present Affect: Sad affect present Results Reviewed Results Reviewed: Compliance report is reviewed. Use / nights, 90%. Average use per night 5 hours 2 minutes The main issue is there is the air leak maximum 75 L/minute. And there is residual AHI of 9.9. Assessment & Plan Assessment & Plan (1) GEOVANNI (obstructive sleep apnea): Comment: PATIENT IS USING CPAP MORE REGULARLY AND IS BENEFITTING . SOME DIFFICULTY IN SLEEPING, BUT HE DOES USE FOR AT LEAST 4-5 HOURS EVERY NIGHT. Code(s): G47.33 - Obstructive sleep apnea (adult) (pediatric) Category: Medical Plan: HAD A GOOD DISCUSSION AND ENCOURAGED HIM TO USE FOR AT LEAST 5 HOURS EVERY NIGHT. AIR LEAK ISSUE IS DISCUSSED. HE USES FULLFACE MASK AND CLAIMS THAT IT IS QUITE TIGHT , HE DOES NOT NOTICE ANY AIR LEAK. I HAVE INSTRUCTED HIM TO CALL THE DME OFFICE, FOR A QUICK VISIT AND GET INSTRUCTIONS ABOUT PROPER USE OF THE MASK, HER MAY NEED TO CHANGE THE MASK WITH BETTER FITTING. (2) Obesity (BMI 30.0-34.9): Comment: PATIENT IS MODERATELY OBESE, THIS IS PARTLY DUE TO EDEMA OF LOWER EXTREMITIES. HE IS NOT FIT TO DO MUCH EXERCISE OR EVEN WALK. SO I DO NOT EXPECT HIM TO LOSE MUCH WEIGHT, EXCEPT WITH DIURESIS. Code(s): E66.9 - Obesity, unspecified Category: Medical Plan: ABOVE Coding Level of Care Code Est Pt Level 3 (65229) Diagnoses GEOVANNI (obstructive sleep apnea) G47.33 Obesity (BMI 30.0-34.9) E66.9
== END 2024-03-13 15:59 | disposition home or self-care (01) ==
PROVIDERS: PCP Internal Medicine; Visit Provider Internal Medicine
DX: G47.33 Obstructive sleep apnea (adult) (pediatric) (principal); E66.9 Obesity, unspecified
CPT/HCPCS: 99213

== ENCOUNTER → 2024-03-13 15:33 | Outpatient (BNVA) | payer MEDICARE, SELFPAY | PROVIDERS: PCP Internal Medicine; Visit Provider Internal Medicine | DX: G47.33 Obstructive sleep apnea (adult) (pediatric) (principal); E66.9 Obesity, unspecified; Z68.30 Body mass index [BMI] 30.0-30.9, adult | CPT/HCPCS: 99212 ==

== ENCOUNTER 2024-03-17 09:32 | Outpatient (REF) | payer MEDICARE, SELFPAY ==
[2024-03-17 09:58] LABS: MANUAL DIFF FLAG NO
[2024-03-17 10:46] LABS: Basophils Absolute Auto 0.1 X10*3/uL (0.0-0.2); Basophils Percent Auto 0.7 % (0-2); Eosinophils Absolute Auto 0.2 X10*3/uL (0.0-0.4); Eosinophils Percent Auto 2.8 % (0-4); Hematocrit 43.7 % (42.0-52.0); Imm Gran Abs Auto 0.06 X10*3/uL (0.00-0.03); Imm Gran Pct Auto 0.9 % (0.0-0.4); Lymphocytes Absolute Auto 1.6 X10*3/uL (1.2-4.9); Lymphocytes Percent Auto 23.1 % (20-40); Mean Corpuscular HGB Conc 34.3 g/dl (31.0-36.0); Mean Corpuscular Hemoglobin 31.6 pg (27.0-33.0); Mean Platelet Volume 9.9 fL (9.4-12.4); Monocytes Absolute Auto 0.7 X10*3/uL (0.1-1.2); Monocytes Percent Auto 9.8 % (2-11); Neutrophils Absolute Auto 4.2 x10*3/uL (2.0-8.3); Neutrophils Percent Auto 62.7 % (45-73); Platelet Count 169 X10*3/uL (160-400); Red Blood Count 4.75 X10*6/uL (4.60-5.80); Red Cell Distribution Width 12.8 % (11.0-16.0); White Blood Count 6.8 X10*3/uL (4.8-10.8)
[2024-03-17 11:32] LABS: Cholesterol 190 mg/dL (<200); Triglycerides 97 mg/dL (<150); Uric Acid 10.9 mg/dL (3.4-7.0)
[2024-03-17 11:42] LABS: HDL Cholesterol 44 mg/dL (>40); LDL Cholesterol Calculated 127 mg/dL (<100)
== END 2024-03-17 09:33 | disposition home or self-care (01) ==
LOC: HO.LAB 09:32
PROVIDERS: PCP Internal Medicine; Visit Provider Internal Medicine
DX: Z13.0 Encounter for screening for diseases of the blood and blood-forming organs and certain disorders involving the immune mechanism (principal); Z13.220 Encounter for screening for lipoid disorders; Z13.6 Encounter for screening for cardiovascular disorders; M10.9 Gout, unspecified
CPT/HCPCS: 36415; 80061; 84550; 85025

== ENCOUNTER 2024-07-09 13:37 | Outpatient (REF) | payer MEDICARE, SELFPAY ==
[2024-07-09 14:19] LABS: MANUAL DIFF FLAG NO
[2024-07-09 14:51] LABS: Basophils Absolute Auto 0.1 X10*3/uL (0.0-0.2); Eosinophils Absolute Auto 0.2 X10*3/uL (0.0-0.4); Eosinophils Percent Auto 2.7 % (0-4); Hematocrit 43.2 % (42.0-52.0); Hemoglobin 15.1 g/dl (14.0-18.0); Imm Gran Abs Auto 0.06 X10*3/uL (0.00-0.03); Imm Gran Pct Auto 0.7 % (0.0-0.4); Lymphocytes Absolute Auto 1.8 X10*3/uL (1.2-4.9); Lymphocytes Percent Auto 22.1 % (20-40); Mean Corpuscular Hemoglobin 31.1 pg (27.0-33.0); Mean Corpuscular Volume 88.9 fL (80.0-98.0); Mean Platelet Volume 9.9 fL (9.4-12.4); Monocytes Absolute Auto 0.9 X10*3/uL (0.1-1.2); Monocytes Percent Auto 10.6 % (2-11); Neutrophils Absolute Auto 5.2 x10*3/uL (2.0-8.3); Neutrophils Percent Auto 62.9 % (45-73); Platelet Count 236 X10*3/uL (160-400); Red Blood Count 4.86 X10*6/uL (4.60-5.80); Red Cell Distribution Width 13.2 % (11.0-16.0); White Blood Count 8.2 X10*3/uL (4.8-10.8)
[2024-07-09 16:36] LABS: Alanine Aminotransferase 19 U/L (0-40); Albumin Level 4.2 g/dL (3.5-5.0); Alkaline Phosphatase 75 U/L (39-117); Anion Gap 15 (12-20); Aspartate Amino Transferase 19 U/L (5-37); Blood Urea Nitrogen 30 mg/dL (9-16); Calcium 9.9 mg/dL (8.4-10.2); Carbon Dioxide 30 mmol/L (22-29); Chloride 101 mmol/L (96-108); Estimated Glomerular Filt Rate 55; Glucose Random 93 mg/dL (60-115); Potassium 3.3 mmol/L (3.3-5.1); Sodium 143 mmol/L (135-145); Total Protein 7.1 g/dL (6.5-8.0)
[2024-07-10 08:15] LABS: HBS Num1 0.41 mIU/mL (0-7.99); HBc Num1 0.09 S/CO (0.00-0.79); HBsAGNum1 0.23 S/CO (0.00-0.99); Hepatitis B Core Antibody Nonreactive (Nonreactive); Hepatitis B Surface Antigen Negative (Negative); ~Hepatitis B Surface Antibody NONREACTIVE (Nonreactive)
[2024-07-11 10:28] LABS: HCV RNA PCR Qn <1.18 NOT DETECTED Log IU/mL (NOT DETECTED); HCV RNA PCR Qn <15 NOT DETECTED IU/mL (NOT DETECTED)
[2024-07-12 00:33] LABS: TS Negative Control Passed; TS Panel A 0; TS Panel B 0; TS Positive Control Passed; TSpotTB Negative (Negative)
== END 2024-07-09 13:38 | disposition home or self-care (01) ==
LOC: HO.LAB 13:37
PROVIDERS: PCP Internal Medicine; Visit Provider Dermatology
DX: R21 Rash and other nonspecific skin eruption (principal)
CPT/HCPCS: 36415; 80053; 85025; 86481; 86704; 86706; 87340; 87522

== ENCOUNTER 2024-08-04 13:55 | Outpatient (REF) | payer MEDICARE, SELFPAY ==
[2024-08-04 14:24] LABS: MANUAL DIFF FLAG NO
[2024-08-04 14:52] LABS: Basophils Absolute Auto 0.1 X10*3/uL (0.0-0.2); Basophils Percent Auto 0.8 % (0-2); Eosinophils Absolute Auto 0.5 X10*3/uL (0.0-0.4); Eosinophils Percent Auto 7.6 % (0-4); Hematocrit 40.2 % (42.0-52.0); Hemoglobin 14.1 g/dl (14.0-18.0); Imm Gran Abs Auto 0.04 X10*3/uL (0.00-0.03); Imm Gran Pct Auto 0.6 % (0.0-0.4); Lymphocytes Absolute Auto 1.6 X10*3/uL (1.2-4.9); Lymphocytes Percent Auto 25.2 % (20-40); Mean Corpuscular HGB Conc 35.1 g/dl (31.0-36.0); Mean Corpuscular Hemoglobin 31.7 pg (27.0-33.0); Mean Corpuscular Volume 90.3 fL (80.0-98.0); Mean Platelet Volume 9.8 fL (9.4-12.4); Monocytes Absolute Auto 0.7 X10*3/uL (0.1-1.2); Monocytes Percent Auto 10.6 % (2-11); Neutrophils Absolute Auto 3.4 x10*3/uL (2.0-8.3); Neutrophils Percent Auto 55.2 % (45-73); Platelet Count 170 X10*3/uL (160-400); Red Blood Count 4.45 X10*6/uL (4.60-5.80); Red Cell Distribution Width 13.3 % (11.0-16.0); White Blood Count 6.2 X10*3/uL (4.8-10.8)
[2024-08-04 15:14] LABS: Alanine Aminotransferase 18 U/L (0-40); Albumin Level 3.9 g/dL (3.5-5.0); Alkaline Phosphatase 67 U/L (39-117); Anion Gap 14 (12-20); Aspartate Amino Transferase 14 U/L (5-37); Bilirubin Total 1.3 mg/dL (0.0-1.0); Blood Urea Nitrogen 25 mg/dL (9-16); Calcium 9.6 mg/dL (8.4-10.2); Carbon Dioxide 29 mmol/L (22-29); Chloride 103 mmol/L (96-108); Estimated Glomerular Filt Rate 54; Glucose Random 110 mg/dL (60-115); Sodium 142 mmol/L (135-145); Total Protein 6.4 g/dL (6.5-8.0)
== END 2024-08-04 13:56 | disposition home or self-care (01) ==
LOC: HO.LAB 13:55
PROVIDERS: PCP Internal Medicine; Visit Provider Dermatology
DX: Z79.899 Other long term (current) drug therapy (principal)
CPT/HCPCS: 36415; 80053; 85025

== ENCOUNTER 2024-08-28 19:30 | Inpatient (IN) | payer MEDICARE, SELFPAY ==
--- NOTE | ~2024-08-28 | XR_ITS ---
EXAMINATION: XR CHEST CLINICAL INFORMATION: Fever. COMPARISON: Chest radiograph dated May 28, 2023. TECHNIQUE: Frontal and lateral radiographs of the chest were performed.. FINDINGS: The heart is normal in size. There is no dense consolidation within either lung. There is no pleural effusion or pneumothorax. There is no acute osseous abnormality. XR/XR chest 2V IMPRESSION: Stable appearance of the heart and lungs. No active disease. Electronically signed by: Blake Garcia DO 08/28/2024 09:24 PM EDT
--- NOTE | ~2024-08-28 | CT_ITS ---
EXAMINATION: CT ABDOMEN AND PELVIS WITH CONTRAST CLINICAL INFORMATION: Left lower quadrant pain. Fever. COMPARISON: Multiple priors, most recent CT abdomen/pelvis dated 05/28/2023. TECHNIQUE: Multidetector volumetric images were obtained from the superior aspect of the liver through the pubic symphysis following administration 85 mL of Omnipaque 350 intravenous contrast. Sagittal and coronal reformatted images were obtained on the technologist's workstation. Oral Contrast: No. This CT examination was performed using dose optimization techniques as appropriate, variously including the following: *Automated exposure control. *Adjustment of mA and/or kV according to patient size (this includes techniques or standardized protocols for targeted exams where dose is matched to indication/reason for exam; i.e. extremities or head). *Use of iterative reconstruction technique. DLP: 699 mGy-cm FINDINGS: LUNG BASES: The visualized lung bases are unremarkable. LIVER, GALLBLADDER, AND BILIARY TREE: The liver is normal in size, shape, and attenuation. No focal hepatic lesion or biliary ductal dilatation is present. The gallbladder is dilated. No radiopaque stone or wall thickening/inflammatory change. Dilatation of the common bile duct measuring up to 1.0 cm, increased when compared to the prior examination (previously 0.7 cm). No radiopaque ductal stone. PANCREAS: Atrophic and fatty-replaced. No associated inflammatory change. No pancreatic ductal dilatation. SPLEEN: Unremarkable. ADRENAL GLANDS: Unremarkable. KIDNEYS AND URETERS: The kidneys are normal in size, shape, and attenuation. No hydronephrosis, hydroureter, or calculi seen. Simple bilateral lower pole renal cysts, unchanged. Findings are not clinically significant and no dedicated follow-up imaging is recommended. No perinephric stranding. BLADDER: Unremarkable. GASTROINTESTINAL TRACT: Redemonstration of a duodenal diverticulum at the second portion of the duodenum and adjacent to the ampulla. No associated inflammatory change. PERITONEAL CAVITY: No intra-abdominal free air or free fluid. No small or large bowel obstruction. No bowel wall thickening or inflammatory change. Appendix is not identified; however, no right abdominal inflammatory change to suggest acute appendicitis. ABDOMINAL WALL: No significant hernia is appreciated. LYMPH NODES: No significant lymphadenopathy. VASCULAR: No abdominal aortic dilatation or dissection. Atherosclerotic calcifications. PELVIC VISCERA: The prostate and seminal vesicles are unremarkable. OSSEOUS STRUCTURES: No acute osseous abnormality. Degenerative disc disease and facet arthropathy redemonstrated throughout the lumbar spine. CT/CT abdomen pelvis w IV con IMPRESSION: 1. No bowel wall thickening or inflammatory change. No small or large bowel obstruction. Appendix not identified; however, no right abdominal inflammatory change to suggest acute appendicitis. 2. No new intra-abdominal mass, lymphadenopathy, or ascites. 3. Dilatation of the gallbladder without radiopaque stone or wall thickening. Dilatation of the common bile duct measuring up to 1.0 cm, increased when compared to the prior examination (previously 0.7 cm). No radiopaque ductal stone. No pancreatic ductal dilatation. 4. Additional chronic findings are unchanged. Fleischner guidelines were followed. Electronically signed by: Bj Mackay MD 08/28/2024 10:12 PM EDT
--- NOTE | ~2024-08-28 | MR_ITS ---
EXAMINATION: MRI ABDOMEN WITHOUT CONTRAST, MRCP CLINICAL INFORMATION: Abdominal pain, dilated CBD. COMPARISON: CT abdomen and pelvis 08/28/2024. TECHNIQUE: Multiple routine MRI sequences through the abdomen were obtained without intravenous contrast. 3D MRCP images were processed on an independent workstation under concurrent supervision. FINDINGS: Limited evaluation secondary to motion and lack of intravenous contrast. LUNG BASES: Lung bases are clear. LIVER: The liver is normal in size, signal and morphology. No liver lesions. GALLBLADDER AND BILIARY TREE: Hydropic gallbladder with wall thickening and intramural edema. No cholelithiasis. Moderate extrahepatic biliary ductal dilatation. The common bile duct measures up to 1.3 cm in diameter. A few T2 hypointense intraluminal filling defects are noted in the CBD with a central and anti-dependent location for example images 28 and 31 series 5. Trace central intrahepatic biliary ductal dilatation. SPLEEN: Unremarkable. PANCREAS: Diffuse fatty atrophy. No main ductal dilatation. No peripancreatic inflammatory changes. ADRENAL GLANDS: Unremarkable. KIDNEYS AND URETERS: No hydronephrosis. A few simple appearing T2 bright cortical and peripelvic cysts, for which no imaging follow-up is recommended. GASTROINTESTINAL: Trace ascites. No evidence of bowel obstruction. LYMPHOVASCULAR STRUCTURES: Normal caliber abdominal aorta. No abdominal lymphadenopathy. OSSEOUS STRUCTURES: No aggressive appearing osseous findings. MR/MR MRCP IMPRESSION: Hydropic gallbladder with wall thickening and intramural edema, nonspecific could represent acute acalculus cholecystitis in the appropriate clinical context. Moderate extrahepatic and trace intrahepatic biliary ductal dilatation. The CBD measures up to 1.3 cm in diameter with a few T2 hypointense intraluminal filling defects situated centrally and anteriorly/anti-dependent that could represent flow void artifacts, although debris/stones cannot be excluded. Further evaluation with ERCP as clinically warranted. No discrete fixed luminal narrowing or abrupt transition point within the biliary tree. No discrete extraluminal compression abnormality. Electronically signed by: Olga Freire MD 09/01/2024 02:57 PM EDT
--- NOTE | ~2024-08-28 | US_ITS ---
EXAMINATION: US ABDOMEN LIMITED CLINICAL INFORMATION: Abdominal pain. Elevated LFTs.. COMPARISON: CT scan dated August 28, 2024. TECHNIQUE: Real-time imaging of the right upper quadrant abdominal viscera. FINDINGS: PANCREAS: Poorly visualized. Body appears grossly unremarkable. Nondiagnostic imaging of the head and tail. LIVER: The liver appears unremarkable in size, contour, and echogenicity. No focal hepatic lesion identified. No intrahepatic biliary duct dilatation is seen. GALLBLADDER: Mild diffuse gallbladder wall thickening measuring approximately 0.7 cm in thickness. The gallbladder is physiologically distended without evidence of stones, sludge, polyps, hyperemia, or pericholecystic fluid. Technologist reports a negative sonographic Cedeno's sign. COMMON BILE DUCT: Measures approximately 0.9 cm in diameter. RIGHT KIDNEY: No hydronephrosis. 1.5 cm benign left lower pole simple renal cyst for which no further dedicated follow-up imaging as indicated. No renal calculi or articular suspicious focal parenchymal lesion identified. The kidney measures 9.9 cm in maximum dimension. FREE FLUID: None. US/US abdomen limited IMPRESSION: Mildly dilated common bile duct. Mild diffuse gallbladder wall thickening, nonspecific. No gallstone identified. Electronically signed by: Larry Raman MD 08/31/2024 12:01 PM EDT
--- NOTE | 2024-08-28 19:42 | ED_ITS ---
HPI - General Adult General Chief complaint: General Medical Stated complaint: fever/abd pain/nauseous Time Seen by Provider: 08/28/24 20:35 Source: patient Limitations: no limitations History of Present Illness ED Provider: Shayna Arshad PA-C HPI narrative: 79-year-old male with a history of hypertension, hyperlipidemia, coronary artery disease, chronic kidney disease, gout, arthritis, presents with weakness. Over the past few days, the patient has had to use his wheelchair due to weakness and fatigue. Associated abdominal pain with nausea. The patient had a temperature at home per his daughter who is a nurse. Patient denies active vomiting, diarrhea, active cough or cold symptoms. No sick contacts with similar symptoms. Related Data Home Medications ?Medication ?Instructions ?Recorded ?Confirmed aspirin 81 mg tablet,delayed 81 mg PO DAILY 03/16/21 03/13/24 release diphenhydramine 25 1 tab PO BEDTIME PRN 04/25/23 03/13/24 mg-acetaminophen 500 mg tablet (Tylenol PM Extra Strength) CPAP (CPAP Machine/Device) 06/13/23 03/13/24 omeprazole 40 mg capsule,delayed 40 mg PO DAILY 10/22/23 03/13/24 release Previous Rx's ?Medication ?Instructions ?Recorded Shower chair #1 ea 08/07/23 Walker #1 ea 08/07/23 tamsulosin 0.4 mg capsule 0.4 mg PO DAILY 90 days #90 caps 10/01/23 carvedilol 3.125 mg tablet (Coreg) 3.125 mg PO BID #180 tabs 01/25/24 methylprednisolone 4 mg tablets in See Rx Instructions PO PER PKG DIR 05/30/24 a dose pack (Medrol (Cb)) #21 ea furosemide 40 mg tablet 40 mg PO DAILY 90 days #90 tabs 06/17/24 Allergies Allergy/AdvReac Type Severity Reaction Status Date / Time allopurinol AdvReac Mild Rash Verified 08/28/24 19:47 atorvastatin AdvReac Mild Rash Verified 08/28/24 19:47 Review of Systems 2 Review of Systems: Yes all other systems are reviewed and are negative Constitutional: Constitutional: Reports fatigue, Reports fever(s) and Reports weakness Cardiovascular: Cardiovascular: Denies chest pain and Denies dyspnea Respiratory: Respiratory: Denies cough and Denies dyspnea Gastrointestinal: Gastrointestinal: Reports abdominal pain, Denies diarrhea, Reports nausea and Denies vomiting Neurologic: Reports weakness Endocrine: Endocrine: Reports fatigue [facility] Past Medical History Attestation statement: The following information was validated with the patient. Medical History GEOVANNI (obstructive sleep apnea) Obesity (BMI 30.0-34.9) Renal insufficiency Hx of skin pruritus Gout Gastric ulcer Obesity Pulmonary hypertension Essential hypertension HLD (hyperlipidemia) Surgical History H/O colonoscopy H/O foot surgery History of cataract surgery Family History Family History Father No problems noted. Mother Colon cancer Sister Colon cancer Brother Stomach cancer Social History Social History Housing: House Alcohol intake: never Comment: 2 MTHS AGO Patient Tobacco Use Status: Former Tobacco user Smoked in Last 30 Days: No e-Cigarette/Vaping Use: Never Used Second Hand Smoke Exposure: No Use of substances other than those prescribed or required for medical reasons: No Advance Directives: No Advance Directives Information Provided: No Advance Directives Date on File: 08/23/20 service: No Current occupational status: retired Cognitive needs: No Hearing needs: No Vision needs: Yes Physical Exam ED Vital Signs: Vital Signs - 24 hr 08/28/24 19:43 08/28/24 20:28 08/28/24 21:50 Temperature 97.7 F 98.5 F Pulse Rate 92 82 78 Respiratory Rate 18 17 Blood Pressure 81/50 L 121/72 127/69 Pulse Oximetry 94 96 97 Oxygen Delivery Method Room Air Room Air BMI result Body Mass Index 29.0 Const Other: Alert, overall well in appearance Orientation/consciousness: patient oriented x3 Resp Effort & Inspection: normal respiratory effort Cardio Other: Normal peripheral perfusion GI Other: Abdomen is soft, nondistended, mild tenderness in left lower quadrant without guarding Skin Other: Warm dry no rash Neuro General: patient oriented x3, no focal motor deficits and CN's II-XI intact bilaterally Psych Other: Calm cooperative Course Course Course Narrative: This is a rapid medical exam performed by Debra Alvarado NP: Additional HPI, ROS, PE not included below will be deferred to primary provider. Patient is an 79-year-old male with history of CAD, dysphagia, CKD, GEOVANNI, pulmonary hypertension, HTN, HLD. Sent by Urgent Care for complaint of heartburn since this morning, this afternoon developed fever/chills. Tested for Covid, UTI there, both of which were negative. Daughter states he is usually ambulatory, more weak than normal. Still had fever after ibuprofen. Temp 97.7 in triage, hypotensive. Patient states heartburn has resolved. Plan: viral serology, labs, EKG, CXR, UA Medications Administered Discontinued Medications Generic Name Dose Route Start Last Admin Trade Name Freq PRN Reason Stop Dose Admin Sodium Chloride 2,830.41 mls @ 2,830.41 mls/hr 08/28/24 20:36 08/28/24 20:50 Ns 30 ml/kg infuse over 1 hr (2830.41 ml) 08/28/24 21:35 2,830.41 mls/hr IV Administration .Q1H STA Ceftriaxone Sodium 2 gm/ 50 mls @ 100 mls/hr 08/28/24 20:36 08/28/24 21:22 Sodium Chloride IV 08/28/24 21:05 Infused ONCE ONE Infusion Iohexol 85 ml 08/28/24 21:43 08/28/24 21:44 Iohexol 350 Mg/Ml 100 Ml Infus..Btl IV 08/28/24 21:44 85 ml ONCE ONE Administration Medical Decision Making Medical Decision Making MDM Narrative: 79-year-old male with a history of hypertension, hyperlipidemia, coronary artery disease, chronic kidney disease, gout, arthritis, presents with weakness. Over the past few days, the patient has had to use his wheelchair due to weakness and fatigue. Associated abdominal pain with nausea. The patient had a temperature at home per his daughter who is a nurse. Patient denies active vomiting, diarrhea, active cough or cold symptoms. No sick contacts with similar symptoms. Problem: Age, hypertension, chronic kidney disease History: Per patient I have considered the following differential diagnoses: Sepsis, viral syndrome, pneumonia, UTI, diverticulitis Plan: Patient is assessment began in triage, he was hypotensive on arrival, he meets sepsis criteria. Screening labs including lactic acid and blood cultures were obtained, viral panel, UA and chest x-ray. Given abdominal pain, I am scanning his belly. I am starting weight based IV fluid resuscitation, and empiric ceftriaxone. First lactic elevated at 3.3 we will repeat I have independently reviewed the following tests: Labs: Leukocytosis noted with left shift, not anemic, no electrolyte abnormality, viral panel negative, urine neg, lactic 3.3 CT abdomen and pelvis:CT ABDOMEN AND PELVIS WITH CONTRAST CLINICAL INFORMATION: Left lower quadrant pain. Fever. COMPARISON: Multiple priors, most recent CT abdomen/pelvis dated 05/28/2023. TECHNIQUE: Multidetector volumetric images were obtained from the superior aspect of the liver through the pubic symphysis following administration 85 mL of Omnipaque 350 intravenous contrast. Sagittal and coronal reformatted images were obtained on the technologist's workstation. Oral Contrast: No. This CT examination was performed using dose optimization techniques as appropriate, variously including the following: *Automated exposure control. *Adjustment of mA and/or kV according to patient size (this includes techniques or standardized protocols for targeted exams where dose is matched to indication/reason for exam; i.e. extremities or head). *Use of iterative reconstruction technique. DLP: 699 mGy-cm FINDINGS: LUNG BASES: The visualized lung bases are unremarkable. LIVER, GALLBLADDER, AND BILIARY TREE: The liver is normal in size, shape, and attenuation. No focal hepatic lesion or biliary ductal dilatation is present. The gallbladder is dilated. No radiopaque stone or wall thickening/inflammatory change. Dilatation of the common bile duct measuring up to 1.0 cm, increased when compared to the prior examination (previously 0.7 cm). No radiopaque ductal stone. PANCREAS: Atrophic and fatty-replaced. No associated inflammatory change. No pancreatic ductal dilatation. SPLEEN: Unremarkable. ADRENAL GLANDS: Unremarkable. KIDNEYS AND URETERS: The kidneys are normal in size, shape, and attenuation. No hydronephrosis, hydroureter, or calculi seen. Simple bilateral lower pole renal cysts, unchanged. Findings are not clinically significant and no dedicated follow-up imaging is recommended. No perinephric stranding. BLADDER: Unremarkable. GASTROINTESTINAL TRACT: Redemonstration of a duodenal diverticulum at the second portion of the duodenum and adjacent to the ampulla. No associated inflammatory change. PERITONEAL CAVITY: No intra-abdominal free air or free fluid. No small or large bowel obstruction. No bowel wall thickening or inflammatory change. Appendix is not identified; however, no right abdominal inflammatory change to suggest acute appendicitis. ABDOMINAL WALL: No significant hernia is appreciated. LYMPH NODES: No significant lymphadenopathy. VASCULAR: No abdominal aortic dilatation or dissection. Atherosclerotic calcifications. PELVIC VISCERA: The prostate and seminal vesicles are unremarkable. OSSEOUS STRUCTURES: No acute osseous abnormality. Degenerative disc disease and facet arthropathy redemonstrated throughout the lumbar spine. CT/CT abdomen pelvis w IV con IMPRESSION: 1. No bowel wall thickening or inflammatory change. No small or large bowel obstruction. Appendix not identified; however, no right abdominal inflammatory change to suggest acute appendicitis. 2. No new intra-abdominal mass, lymphadenopathy, or ascites. 3. Dilatation of the gallbladder without radiopaque stone or wall thickening. Dilatation of the common bile duct measuring up to 1.0 cm, increased when compared to the prior examination (previously 0.7 cm). No radiopaque ductal stone. No pancreatic ductal dilatation. 4. Additional chronic findings are unchanged. Fleischner guidelines were followed. Electronically signed by: Bj Mackay MD 08/28/2024 10:12 PM EDT Chest x-ray:XR CHEST CLINICAL INFORMATION: Fever. COMPARISON: Chest radiograph dated May 28, 2023. TECHNIQUE: Frontal and lateral radiographs of the chest were performed.. FINDINGS: The heart is normal in size. There is no dense consolidation within either lung. There is no pleural effusion or pneumothorax. There is no acute osseous abnormality. XR/XR chest 2V IMPRESSION: Stable appearance of the heart and lungs. No active disease. Electronically signed by: Blake Garcia DO 08/28/2024 09:24 PM EDT RP Lab Data 08/28/24 20:08 08/28/24 20:08 Labs: Lab Results 08/28/24 08/28/24 08/28/24 Range/Units 20:08 20:09 22:18 WBC 17.1 H (4.8-10.8) X10*3/uL RBC 4.46 L (4.60-5.80) X10*6/uL Hgb 14.1 (14.0-18.0) g/dl Hct 40.2 L (42.0-52.0) % MCV 90.1 (80.0-98.0) fL MCH 31.6 (27.0-33.0) pg MCHC 35.1 (31.0-36.0) g/dl RDW 14.4 (11.0-16.0) % Plt Count 169 (160-400) X10*3/uL MPV 9.7 (9.4-12.4) fL Immature Gran % (Auto) 0.8 H (0.0-0.4) % Neut % (Auto) 89.8 H (45-73) % Lymph % (Auto) 2.6 L (20-40) % [place] % (Auto) 6.7 (2-11) % Eos % (Auto) 0.0 (0-4) % Baso % (Auto) 0.1 (0-2) % Lymph # (Auto) 0.4 L (1.2-4.9) X10*3/uL [place] # (Auto) 1.2 (0.1-1.2) X10*3/uL Eos # (Auto) 0.0 (0.0-0.4) X10*3/uL Baso # (Auto) 0.0 (0.0-0.2) X10*3/uL Abs Immat Gran (auto) 0.14 H (0.00-0.03) X10*3/uL Absolute Neuts (auto) 15.3 H (2.0-8.3) x10*3/uL Absolute Nucleated RBC 0.000 (0.0-0.012) X10*3/uL Nucleated RBC % (auto) 0.0 (0.0-0.2) /100WBC PT 11.0 (10.9-12.4) SEC INR 0.9 (0.9-1.1) Sodium 139 (135-145) mmol/L Potassium 3.4 (3.3-5.1) mmol/L Chloride 100 (96-108) mmol/L Carbon Dioxide 25 (22-29) mmol/L Anion Gap 17 (12-20) BUN 31 H (9-16) mg/dL Creatinine 1.21 (0.5-1.4) mg/dL Estim Creat Clear Calc 56.1 Estimated GFR 58 Random Glucose 127 H (60-115) mg/dL Lactic Acid 3.3 H* (0.5-2.0) mmol/L Calcium 9.2 (8.4-10.2) mg/dL Magnesium 2.1 (1.6-2.6) mg/dL Total Bilirubin 5.7 H (0.0-1.0) mg/dL AST 216 H (5-37) U/L ALT 203 H (0-40) U/L Alkaline Phosphatase 154 H (39-117) U/L Troponin I High Sens 22.2 (<3.5-35.0) ng/L B-Natriuretic Peptide 61 (<100) pg/mL Total Protein 5.9 L (6.5-8.0) g/dL Albumin 3.7 (3.5-5.0) g/dL Amylase 65 (28-100) U/L Lipase 77 (8-78) U/L Urine Color Dark Yellow Urine Appearance Clear Urine pH 5.5 (5.0-9.0) Ur Specific [place] 1.015 (1.005-1.025) Urine Protein Negative (Neg-Trace) mg/dL Urine Glucose (UA) Negative (Negative) mg/dL Urine Ketones Negative (Negative) mg/dL Urine Blood Negative (Negative) Urine Nitrite Negative (Negative) Ur Leukocyte Esterase Negative (Negative) Influenza Type A (PCR) NEGATIVE (Negative) Influenza Type B (PCR) NEGATIVE (Negative) RSV RNA Qual (PCR) NEGATIVE (Negative) SARS-CoV-2 RNA (RT-PCR) NEGATIVE (Negative) Discharge Plan Discharge Prescriptions: No Action (DME) Walker See Rx Instructions .Route .MEDSUPPLY Qty: 1 0RF Rx Instructions: As directed (DME) Shower chair See Rx Instructions .Route .MEDSUPPLY Qty: 1 0RF Rx Instructions: As directed tamsulosin 0.4 mg capsule 0.4 mg PO DAILY 90 Days Qty: 90 3RF carvedilol [Coreg] 3.125 mg tablet 3.125 mg PO BID Qty: 180 3RF Rx Instructions: must administer with a meal/food methylprednisolone [Medrol (Cb)] 4 mg tablets,dose pack See Rx Instructions PO PER PKG DIR Qty: 21 0RF Rx Instructions: PO PER PKG DIR furosemide 40 mg tablet 40 mg PO DAILY 90 Days Qty: 90 1RF aspirin 81 mg tablet,delayed release (DR/EC) 81 mg PO DAILY diphenhydramine-acetaminophen [Tylenol PM Extra Strength] 25-500 mg tablet 1 tab PO BEDTIME PRN (DME) CPAP Machine/Device Device See Rx Instructions .Route Rx Instructions: As directed omeprazole 40 mg capsule,delayed release(DR/EC) 40 mg PO DAILY Print Language: Tongan
[2024-08-28 19:43] VITALS: BP 81/50; PULSE 92; RESP 18; TEMP 36.5; O2SAT 94; BMI 29.0
--- NOTE | 2024-08-28 19:45 | ECG_ITS ---
Test Reason : fever weakness abd mckay Blood Pressure : / mmHG Vent. Rate : 088 BPM Atrial Rate : 088 BPM P-R Int : 172 ms QRS Dur : 110 ms QT Int : 396 ms P-R-T Axes : 023 -47 009 degrees QTc Int : 479 ms Normal sinus rhythm with sinus arrhythmia Incomplete right bundle branch block Left anterior fascicular block Minimal voltage criteria for LVH, may be normal variant ( R in aVL ) Nonspecific ST abnormality Abnormal ECG When compared with ECG of 28-MAY-2023 15:14, Incomplete right bundle branch block is now Present Referred By: Stella Alvarado Electronically Signed By:SACHIN JAMESON MD
[2024-08-28 20:16] LABS: MANUAL DIFF FLAG NO
[2024-08-28 20:20] LABS: Basophils Percent Auto 0.1 % (0-2); Hematocrit 40.2 % (42.0-52.0); Hemoglobin 14.1 g/dl (14.0-18.0); Imm Gran Abs Auto 0.14 X10*3/uL (0.00-0.03); Imm Gran Pct Auto 0.8 % (0.0-0.4); Lymphocytes Absolute Auto 0.4 X10*3/uL (1.2-4.9); Lymphocytes Percent Auto 2.6 % (20-40); Mean Corpuscular HGB Conc 35.1 g/dl (31.0-36.0); Mean Corpuscular Hemoglobin 31.6 pg (27.0-33.0); Mean Corpuscular Volume 90.1 fL (80.0-98.0); Mean Platelet Volume 9.7 fL (9.4-12.4); Monocytes Absolute Auto 1.2 X10*3/uL (0.1-1.2); Monocytes Percent Auto 6.7 % (2-11); Neutrophils Absolute Auto 15.3 x10*3/uL (2.0-8.3); Neutrophils Percent Auto 89.8 % (45-73); Platelet Count 169 X10*3/uL (160-400); Red Blood Count 4.46 X10*6/uL (4.60-5.80); Red Cell Distribution Width 14.4 % (11.0-16.0); White Blood Count 17.1 X10*3/uL (4.8-10.8)
[2024-08-28 20:23] LABS: INTERNATIONAL NORM RATIO 0.9 (0.9-1.1)
[2024-08-28 20:28] VITALS: BP 121/72; PULSE 82; RESP 17; TEMP 36.9; O2SAT 96
[2024-08-28 20:34] LABS: Lactic Acid 3.3 mmol/L (0.5-2.0)
[2024-08-28 20:39] LABS: B Type Natriuretic Peptide 61 pg/mL (<100)
[2024-08-28 20:42] LABS: Troponin-I High Sensitivity 22.2 ng/L (<3.5-35.0)
[2024-08-28 20:47] LABS: Alanine Aminotransferase 203 U/L (0-40); Albumin Level 3.7 g/dL (3.5-5.0); Alkaline Phosphatase 154 U/L (39-117); Amylase 65 U/L (28-100); Anion Gap 17 (12-20); Aspartate Amino Transferase 216 U/L (5-37); Bilirubin Total 5.7 mg/dL (0.0-1.0); Blood Urea Nitrogen 31 mg/dL (9-16); Calcium 9.2 mg/dL (8.4-10.2); Carbon Dioxide 25 mmol/L (22-29); Chloride 100 mmol/L (96-108); Creatinine Clr Calc Pharmacy 56.1; Estimated Glomerular Filt Rate 58; Glucose Random 127 mg/dL (60-115); Lipase 77 U/L (8-78); Magnesium 2.1 mg/dL (1.6-2.6); Potassium 3.4 mmol/L (3.3-5.1); Sodium 139 mmol/L (135-145); Total Protein 5.9 g/dL (6.5-8.0)
[2024-08-28] MEDS: SODIUM CHLORIDE 2830.41 ML IV (20:50)
[2024-08-28] MEDS: cefTRIAXone sodium 2 GM in 0.9 % Sodium Chloride 50 ML IV (20:52)
[2024-08-28 20:55] LABS: Influenza A PCR NEGATIVE (Negative); Influenza B PCR NEGATIVE (Negative); Resp Syncy Virus RNA Qual PCR NEGATIVE (Negative); SARS COV2 PCR INHOUSE NEGATIVE (Negative)
--- NOTE | 2024-08-28 21:14 | PC.NURSE ---
the RN hung ABX after only one set of blood cultures. PA notified. PA asks to draw the second set anyway
[2024-08-28] MEDS: iohexoL 350 MG/ML 100 ML INFUS..BTL 85 ML IV (21:44)
[2024-08-28 21:50] VITALS: BP 127/69; PULSE 78; O2SAT 97
[2024-08-28 22:13] VITALS: BP 115/60; PULSE 74
[2024-08-28 22:15] LABS: Reflex Lactate? Lactic Acid Added
[2024-08-28 22:28] VITALS: BP 117/67; PULSE 73; TEMP 36.6; O2SAT 97
[2024-08-28 22:28] LABS: Appearance Urine Clear; Color Urine Dark Yellow; Glucose Urine UA Negative (Negative); Leukocyte Esterase Urine Negative (Negative); Nitrite Urine Negative (Negative); PH 5.5 (5.0-9.0); Specific Gravity - Urine 1.015 (1.005-1.025); Urine Blood Negative (Negative); Urine Ketones Negative (Negative); Urine Protein Negative (Neg-Trace)
[2024-08-28 23:09] LABS: ~Lactic Acid-LAB USE ONLY 1.5 mmol/L (0.5-2.0)
--- NOTE | 2024-08-28 23:10 | PC.NURSE ---
This proposal lead writer assumed care of this Pt at 2300. Pt A&Ox3, denies any pain. Pt stand by assist with urinal usage, Pt reports he uses cane to ambulate at home. [place] given with juice.
--- NOTE | 2024-08-28 23:41 | P.HPHOSP_ITS ---
History of Present Illness Date of Service: 08/29/24 Chief Complaint: Abd pain This is a 79-year-old male with pertinent history of hypertension, mixed hyperlipidemia, pulmonary hypertension, history of gastric ulcer with gastroesophageal reflux disease, CAD, bifascicular block, BPH, skin rash of unknown etiology presents to the emergency department for evaluation of abdominal pain and fever. Patient reports upper abdominal discomfort associated with nausea. Also was having symptoms of gastroesophageal reflux disease. He called his daughter who is a nurse. Patient was feeling warm and had a temperature of 100.4 degrees. Had associated chills. Also has been having weakness, fatigue and decreased p.o. intake. No vomiting, diarrhea. Patient denies chest discomfort, cough, changes in urinary habits. In the emergency department, white count and lactic acid found to be elevated. Also had raised transaminases Review of Systems 2 Constitutional: Constitutional: Reports fatigue and Reports malaise Cardiovascular: Cardiovascular: Reports no additional cardiovascular complaints Respiratory: Respiratory: Reports no additional respiratory complaints Gastrointestinal: Gastrointestinal: Reports abdominal pain and Reports nausea Genitourinary: Genitourinary: Reports no additional male genitourinary complaints Endocrine: Endocrine: Reports fatigue [facility] Medical History GEOVANNI (obstructive sleep apnea) Obesity (BMI 30.0-34.9) Renal insufficiency Hx of skin pruritus Gout Gastric ulcer Obesity Pulmonary hypertension Essential hypertension HLD (hyperlipidemia) Family History Father No problems noted. Mother Colon cancer Sister Colon cancer Brother Stomach cancer Surgical History H/O colonoscopy H/O foot surgery History of cataract surgery Social History Housing: House Alcohol intake: never Comment: 2 MTHS AGO Patient Tobacco Use Status: Former Tobacco user Smoked in Last 30 Days: No e-Cigarette/Vaping Use: Never Used Second Hand Smoke Exposure: No Use of substances other than those prescribed or required for medical reasons: No Advance Directives: No Advance Directives Information Provided: No Advance Directives Date on File: 08/23/20 service: No Current occupational status: retired Cognitive needs: No Hearing needs: No Vision needs: Yes Meds Allergies Allergy/AdvReac Type Severity Reaction Status Date / Time allopurinol AdvReac Mild Rash Verified 08/28/24 19:47 atorvastatin AdvReac Mild Rash Verified 08/28/24 19:47 Active Medications: Current Medications Acetaminophen (Acetaminophen 325 Mg Tablet) 650 mg PO Q6H PRN PRN Reason: Pain, Mild (Pain Scale 1-3), fever or headache Calcium Carbonate (Calcium Carbonate 750 Mg Tab.Chew) 750 mg PO Q4H PRN PRN Reason: Heartburn Enoxaparin Sodium (Enoxaparin Sodium 40 Mg/0.4 Ml Syringe) 40 mg SUBCUT Q24H LEON Piperacillin Sod/Tazobactam (Sod 4.5 gm/ Sodium Chloride) 100 mls @ 200 mls/hr IV Q6H LEON Magnesium Hydroxide (Milk Of Magnesia 30 Ml Oral.Susp) 30 ml PO DAILY PRN PRN Reason: Constipation Melatonin (Melatonin 3 Mg Tablet) 6 mg PO BEDTIME PRN PRN Reason: Insomnia Ondansetron HCl (Ondansetron Hcl 4 Mg/2 Ml Vial) 4 mg IVPUSH Q8H PRN PRN Reason: Nausea and Vomiting Sodium Chloride (0.9 % Sodium Chloride Flush 3 Ml Syringe) 3 ml IVFLUSH QSHIFT [facility] Home Medications ?Medication ?Instructions ?Recorded ?Confirmed ?Last Taken ?Type aspirin 81 mg tablet,delayed 81 mg PO DAILY 03/16/21 03/13/24 04/03/23 History release diphenhydramine 25 1 tab PO BEDTIME PRN 04/25/23 03/13/24 Unknown History mg-acetaminophen 500 mg tablet (Tylenol PM Extra Strength) CPAP (CPAP Machine/Device) 06/13/23 03/13/24 Unknown History omeprazole 40 mg capsule,delayed 40 mg PO DAILY 10/22/23 03/13/24 Unknown History release Physical Exam 2 Vital Signs and Narrative: Vital Signs: Last Vital Signs Temp 97.8 F 08/28/24 22:28 Pulse 73 08/28/24 22:28 Resp 17 08/28/24 20:28 BP 117/67 08/28/24 22:28 Pulse Ox 97 08/28/24 22:28 O2 Del Method Room Air 08/28/24 22:28 BMI result Body Mass Index 29.0 Middle-aged male lying in bed in no distress Neck supple, no JVD Regular rate and rhythm, S1-S2 heard Regular breath sounds bilaterally, no wheezing or crackles appreciated Abdomen with mild upper abdominal tenderness, no rigidity, no guarding Patient is awake, alert and oriented to self, place, time and person ; no focal motor deficit Psych: Normal mood No pedal edema Results Labs 08/28/24 20:08 08/28/24 20:08 Labs: Laboratory Results - last 24 hr 08/28/24 08/28/24 08/28/24 20:08 20:09 22:18 MCV 90.1 MCH 31.6 MCHC 35.1 RDW 14.4 Plt Count 169 MPV 9.7 Immature Gran % (Auto) 0.8 H Neut % (Auto) 89.8 H Lymph % (Auto) 2.6 L [place] % (Auto) 6.7 Eos % (Auto) 0.0 Baso % (Auto) 0.1 Lymph # (Auto) 0.4 L [place] # (Auto) 1.2 Eos # (Auto) 0.0 Baso # (Auto) 0.0 Abs Immat Gran (auto) 0.14 H Absolute Neuts (auto) 15.3 H Absolute Nucleated RBC 0.000 Nucleated RBC % (auto) 0.0 PT 11.0 INR 0.9 Anion Gap 17 Estim Creat Clear Calc 56.1 Estimated GFR 58 Random Glucose 127 H Lactic Acid 3.3 H* Lactic Acid F/U @ 2Hr Calcium 9.2 Magnesium 2.1 Total Bilirubin 5.7 H AST 216 H ALT 203 H Alkaline Phosphatase 154 H Troponin I High Sens 22.2 B-Natriuretic Peptide 61 Total Protein 5.9 L Albumin 3.7 Amylase 65 Lipase 77 Urine Color Dark Yellow Urine Appearance Clear Urine pH 5.5 Ur Specific [place] 1.015 Urine Protein Negative Urine Glucose (UA) Negative Urine Ketones Negative Urine Blood Negative Urine Nitrite Negative Ur Leukocyte Esterase Negative Influenza Type A (PCR) NEGATIVE Influenza Type B (PCR) NEGATIVE RSV RNA Qual (PCR) NEGATIVE SARS-CoV-2 RNA (RT-PCR) NEGATIVE 08/28/24 22:54 MCV MCH MCHC RDW Plt Count MPV Immature Gran % (Auto) Neut % (Auto) Lymph % (Auto) [place] % (Auto) Eos % (Auto) Baso % (Auto) Lymph # (Auto) [place] # (Auto) Eos # (Auto) Baso # (Auto) Abs Immat Gran (auto) Absolute Neuts (auto) Absolute Nucleated RBC Nucleated RBC % (auto) PT INR Anion Gap Estim Creat Clear Calc Estimated GFR Random Glucose Lactic Acid Lactic Acid F/U @ 2Hr 1.5 Calcium Magnesium Total Bilirubin AST ALT Alkaline Phosphatase Troponin I High Sens B-Natriuretic Peptide Total Protein Albumin Amylase Lipase Urine Color Urine Appearance Urine pH Ur Specific [place] Urine Protein Urine Glucose (UA) Urine Ketones Urine Blood Urine Nitrite Ur Leukocyte Esterase Influenza Type A (PCR) Influenza Type B (PCR) RSV RNA Qual (PCR) SARS-CoV-2 RNA (RT-PCR) Imaging Radiologist's Impressions: Impressions Chest X-Ray 08/28/24 20:44 IMPRESSION: Stable appearance of the heart and lungs. No active disease. Electronically signed by: Blake Garcia DO 08/28/2024 09:24 PM EDT Abdomen/Pelvis CT 08/28/24 21:46 IMPRESSION: 1. No bowel wall thickening or inflammatory change. No small or large bowel obstruction. Appendix not identified; however, no right abdominal inflammatory change to suggest acute appendicitis. 2. No new intra-abdominal mass, lymphadenopathy, or ascites. 3. Dilatation of the gallbladder without radiopaque stone or wall thickening. Dilatation of the common bile duct measuring up to 1.0 cm, increased when compared to the prior examination (previously 0.7 cm). No radiopaque ductal stone. No pancreatic ductal dilatation. 4. Additional chronic findings are unchanged. Fleischner guidelines were followed. Electronically signed by: Bj Mackay MD 08/28/2024 10:12 PM EDT Assessment and Plan (1) Sepsis: Status: Acute (2) Abdominal pain: Status: Acute Plan This is a 79-year-old male with pertinent history of hypertension, mixed hyperlipidemia, pulmonary hypertension, history of gastric ulcer with gastroesophageal reflux disease, CAD, bifascicular block, BPH, skin rash of unknown etiology presents to the emergency department for evaluation of abdominal pain and fever. #. SIRS+ with abdominal pain: Will admit patient with empiric IV antibiotics. Febrile with fever 100.4 at home as per patient's daughter. No acute abnormality on CT scan of the abdomen/pelvis. Does have elevated liver enzymes, will obtain ultrasound of the abdomen #. Acute lactic acidosis due to sepsis: Resolved #. CAD/mixed hyperlipidemia: Continue aspirin and beta-mary ellen. Hold statin #. Hypertension: Hold Lasix #. Gastroesophageal reflux disease: On PPI. #. BPH: On Flomax #. Skin rash, unknown etiology: On outpatient methotrexate Med rec pending DVT prophylaxis: Lovenox Full code. Discussed with patient at bedside Admit as inpatient and will require two night minimum hospital stay for IV antibiotics (as above), which is not possible in a lesser acute setting. Quality Stroke Does the patient have a stroke diagnosis?: No VTE Prior VTE?: No VTE Risk Level:: Medical - moderate - high VTE Device Contraindication: Treatment Not Indicated VTE Drug Contraindication: N/A - Med Ordered
[2024-08-29] VITALS (7 sets, daily range): BP systolic 120–139; BP diastolic 68–79; PULSE 72–79; RESP 12–20; TEMP 36.6–37.1; O2SAT 96–97; BMI 30.6
--- NOTE | 2024-08-29 00:02 | MHC.EDTECH ---
at this time this tech assisted the pt to use his urinal via standby assist, pt stood up on side of the bed w/ minimal assistance and steady gate, pt assisted back to bed, lights dimmed and call light given for safety
[2024-08-29] MEDS: 0.9 % Sodium Chloride Flush 3 ML SYRINGE IVFLUSH ×3 (00:17→16:46)
[2024-08-29] MEDS: Pantoprazole Sodium 40 MG/10 ML VIAL IVPUSH (00:18)
[2024-08-29] MEDS: Enoxaparin Sodium 40 MG/0.4 ML SYRINGE SUBCUT (00:29)
[2024-08-29] MEDS: Piperacillin Sodium/Tazobactam 4.5 GM in 0.9 % Sodium Chloride 100 ML IV ×4 (00:29→18:42)
[2024-08-29 06:19] LABS: Basophils Percent Auto 0.2 % (0-2); Eosinophils Absolute Auto 0.2 X10*3/uL (0.0-0.4); Eosinophils Percent Auto 1.3 % (0-4); Hematocrit 38.1 % (42.0-52.0); Hemoglobin 13.3 g/dl (14.0-18.0); Imm Gran Abs Auto 0.09 X10*3/uL (0.00-0.03); Imm Gran Pct Auto 0.7 % (0.0-0.4); Lymphocytes Absolute Auto 0.8 X10*3/uL (1.2-4.9); Lymphocytes Percent Auto 5.9 % (20-40); Mean Corpuscular HGB Conc 34.9 g/dl (31.0-36.0); Mean Corpuscular Hemoglobin 31.7 pg (27.0-33.0); Mean Corpuscular Volume 90.7 fL (80.0-98.0); Mean Platelet Volume 9.6 fL (9.4-12.4); Monocytes Absolute Auto 0.9 X10*3/uL (0.1-1.2); Monocytes Percent Auto 6.3 % (2-11); Neutrophils Absolute Auto 11.8 x10*3/uL (2.0-8.3); Neutrophils Percent Auto 85.6 % (45-73); Platelet Count 146 X10*3/uL (160-400); Red Cell Distribution Width 14.6 % (11.0-16.0); White Blood Count 13.8 X10*3/uL (4.8-10.8)
[2024-08-29 06:23] LABS: MANUAL DIFF FLAG NO
--- NOTE | 2024-08-29 07:40 | P.PNIM_ITS ---
Subjective Subjective Date of Service: 08/29/24 Interval History: follow up abdominal sepsis pain is better, LFTs better Physical Exam 2 Vital Signs: Vital Signs: Last Vital Signs Temp 98.2 F 08/29/24 06:31 Pulse 72 08/29/24 06:31 Resp 18 08/29/24 06:31 BP 131/71 08/29/24 06:31 Pulse Ox 97 08/29/24 06:31 O2 Del Method Room Air 08/29/24 06:31 BMI result Body Mass Index 29.0 Const: Other: General: AO X 3, no acute distress Resp: CTA bilateral CVS: S1,S2,RRR GI: mild ruq tenderness Skin: No rash Neuro: motor grossly intact Psych: appropriate affect Objective Data Active Medications Acetaminophen (Acetaminophen 325 Mg Tablet) 650 mg PO Q6H PRN PRN Reason: Pain, Mild (Pain Scale 1-3), fever or headache Calcium Carbonate (Calcium Carbonate 750 Mg Tab.Chew) 750 mg PO Q4H PRN PRN Reason: Heartburn Enoxaparin Sodium (Enoxaparin Sodium 40 Mg/0.4 Ml Syringe) 40 mg SUBCUT Q24H [facility] Last Admin: 08/29/24 00:29 Dose: 40 mg Documented By: BURAK Piperacillin Sod/Tazobactam (Sod 4.5 gm/ Sodium Chloride) 100 mls @ 200 mls/hr IV Q6H [facility] Last Infusion: 08/29/24 07:16 Dose: Infused Documented By: BURAK Magnesium Hydroxide (Milk Of Magnesia 30 Ml Oral.Susp) 30 ml PO DAILY PRN PRN Reason: Constipation Melatonin (Melatonin 3 Mg Tablet) 6 mg PO BEDTIME PRN PRN Reason: Insomnia Ondansetron HCl (Ondansetron Hcl 4 Mg/2 Ml Vial) 4 mg IVPUSH Q8H PRN PRN Reason: Nausea and Vomiting Sodium Chloride (0.9 % Sodium Chloride Flush 3 Ml Syringe) 3 ml IVFLUSH QSHIFT [facility] Last Admin: 08/29/24 00:17 Dose: 3 ml Documented By: BURAK Labs 08/29/24 06:09 08/29/24 06:09 Labs: Laboratory Results - last 24 hr 08/28/24 08/28/24 08/28/24 20:08 20:09 22:18 MCV 90.1 MCH 31.6 MCHC 35.1 RDW 14.4 Plt Count 169 MPV 9.7 Immature Gran % (Auto) 0.8 H Neut % (Auto) 89.8 H Lymph % (Auto) 2.6 L [place] % (Auto) 6.7 Eos % (Auto) 0.0 Baso % (Auto) 0.1 Lymph # (Auto) 0.4 L [place] # (Auto) 1.2 Eos # (Auto) 0.0 Baso # (Auto) 0.0 Abs Immat Gran (auto) 0.14 H Absolute Neuts (auto) 15.3 H Absolute Nucleated RBC 0.000 Nucleated RBC % (auto) 0.0 PT 11.0 INR 0.9 Anion Gap 17 Estim Creat Clear Calc 56.1 Estimated GFR 58 Random Glucose 127 H Lactic Acid 3.3 H* Lactic Acid F/U @ 2Hr Calcium 9.2 Magnesium 2.1 Total Bilirubin 5.7 H AST 216 H ALT 203 H Alkaline Phosphatase 154 H Troponin I High Sens 22.2 B-Natriuretic Peptide 61 Total Protein 5.9 L Albumin 3.7 Amylase 65 Lipase 77 Urine Color Dark Yellow Urine Appearance Clear Urine pH 5.5 Ur Specific [place] 1.015 Urine Protein Negative Urine Glucose (UA) Negative Urine Ketones Negative Urine Blood Negative Urine Nitrite Negative Ur Leukocyte Esterase Negative Influenza Type A (PCR) NEGATIVE Influenza Type B (PCR) NEGATIVE RSV RNA Qual (PCR) NEGATIVE SARS-CoV-2 RNA (RT-PCR) NEGATIVE 08/28/24 08/29/24 22:54 06:09 MCV 90.7 MCH 31.7 MCHC 34.9 RDW 14.6 Plt Count 146 L MPV 9.6 Immature Gran % (Auto) 0.7 H Neut % (Auto) 85.6 H Lymph % (Auto) 5.9 L [place] % (Auto) 6.3 Eos % (Auto) 1.3 Baso % (Auto) 0.2 Lymph # (Auto) 0.8 L [place] # (Auto) 0.9 Eos # (Auto) 0.2 Baso # (Auto) 0.0 Abs Immat Gran (auto) 0.09 H Absolute Neuts (auto) 11.8 H Absolute Nucleated RBC 0.000 Nucleated RBC % (auto) 0.0 PT INR Anion Gap Estim Creat Clear Calc Estimated GFR Random Glucose Lactic Acid Lactic Acid F/U @ 2Hr 1.5 Calcium Magnesium Total Bilirubin AST ALT Alkaline Phosphatase Troponin I High Sens B-Natriuretic Peptide Total Protein Albumin Amylase Lipase Urine Color Urine Appearance Urine pH Ur Specific [place] Urine Protein Urine Glucose (UA) Urine Ketones Urine Blood Urine Nitrite Ur Leukocyte Esterase Influenza Type A (PCR) Influenza Type B (PCR) RSV RNA Qual (PCR) SARS-CoV-2 RNA (RT-PCR) Assessment and Plan (1) Sepsis: Status: Acute Plan 79/m HTN, HLD, pulm HTN, h/o gastric ulcer, GERD, CAD, bifasicular block, BPH here with abdominal pain, fever and leukocytosis, elevated LFTS, CT shows dilated CBC but no stone or sludge of thickening of GB Sepsis d/t abdominal source,concern for galbladder process, sepssis resolved, wbc down, no more fever -Continue empiric Zosyn -Surgery consult -May need MRCP -morphine for pain Acute lactic acidosis due to sepsis--resolved CAD/mixed hyperlipidemia: Continue aspirin and beta-mary ellen. Hold statin Hypertension -hold lasix GERD -PPI BPH - Flomax Skin rash, unknown etiology: -On outpatient methotrexate, and prednisone DVT prophylaxis: Lovenox Full code. Discussed with patient at bedside need for inpt: abdominal process sepsis Quality Stroke Does the patient have a stroke diagnosis?: No VTE Prior VTE?: No VTE Risk Level:: Medical - moderate - high VTE Device Contraindication: Treatment Not Indicated VTE Drug Contraindication: N/A - Med Ordered
--- NOTE | 2024-08-29 07:58 | PC.NURSE ---
pt reports some indigestions/acid and requests a TUMS
[2024-08-29 07:59] LABS: Alanine Aminotransferase 166 U/L (0-40); Albumin Level 3.1 g/dL (3.5-5.0); Alkaline Phosphatase 137 U/L (39-117); Anion Gap 13 (12-20); Aspartate Amino Transferase 113 U/L (5-37); Bilirubin Total 8.2 mg/dL (0.0-1.0); Blood Urea Nitrogen 27 mg/dL (9-16); Calcium 8.2 mg/dL (8.4-10.2); Carbon Dioxide 24 mmol/L (22-29); Chloride 107 mmol/L (96-108); Creatinine Clr Calc Pharmacy 62.3; Estimated Glomerular Filt Rate > 60; Glucose Random 118 mg/dL (60-115); Potassium 3.3 mmol/L (3.3-5.1); Sodium 141 mmol/L (135-145)
[2024-08-29] MEDS: Calcium Carbonate 750 MG TAB.CHEW PO (08:03)
--- NOTE | 2024-08-29 08:06 | P.CONGS_ITS ---
History of Present Illness Consult details Consult date: 08/29/24 Narrative: 79-year-old male patient presenting with complaints of acid indigestion. He has a past history of hypertension, hyperlipidemia, CAD, CKD, gout and arthritis noting the symptoms beginning yesterday mainly epigastrium and right upper quadrant. He reports a previous history of similar symptoms in the past. The current episode was associated with nausea without vomiting. Reports feeling chills yesterday and was noted to have a fever of 100.4. He subsequently presented to the emergency department and was noted to have an elevated WBC, lactic acid and transaminases. CT abdomen and pelvis revealed a distended gallbladder without calcified gallstones, gallbladder wall thickening or pericholecystic fluid. The common bile duct is noted to be dilated to 1 cm. He is awaiting an ultrasound of the abdomen. Review of Systems 2 Review of Systems: Yes all other systems are reviewed and are negative Constitutional: Constitutional: Reports anorexia, Reports chills, Reports poor appetite and Reports weakness Cardiovascular: Cardiovascular: Denies chest pain Respiratory: Respiratory: Denies chest congestion, Denies cough and Denies hemoptysis Gastrointestinal: Gastrointestinal: Reports abdominal pain, Denies change in stool character, Reports heartburn, Reports nausea, Denies vomiting and Denies hematemesis Genitourinary: Genitourinary: Reports urinary frequency Neurologic: Reports weakness PMFSH Past Medical History Medical History GEOVANNI (obstructive sleep apnea) Obesity (BMI 30.0-34.9) Renal insufficiency Hx of skin pruritus Gout Gastric ulcer Obesity Pulmonary hypertension Essential hypertension HLD (hyperlipidemia) Family History Family History Father No problems noted. Mother Colon cancer Sister Colon cancer Brother Stomach cancer Surgical History Surgical History H/O colonoscopy H/O foot surgery History of cataract surgery Social History Social History Housing: House Alcohol intake: never Comment: 2 MTHS AGO Patient Tobacco Use Status: Former Tobacco user Smoked in Last 30 Days: No e-Cigarette/Vaping Use: Never Used Second Hand Smoke Exposure: No Use of substances other than those prescribed or required for medical reasons: No Advance Directives: No Advance Directives Information Provided: No Advance Directives Date on File: 08/23/20 Nutrition Risks: No Nutritional Risk service: No Current occupational status: retired Cognitive needs: No Hearing needs: No Vision needs: Yes Meds Allergies Allergy/AdvReac Type Severity Reaction Status Date / Time allopurinol AdvReac Mild Rash Verified 08/28/24 19:47 atorvastatin AdvReac Mild Rash Verified 08/28/24 19:47 Active Medications: Current Medications Acetaminophen (Acetaminophen 325 Mg Tablet) 650 mg PO Q6H PRN PRN Reason: Pain, Mild (Pain Scale 1-3), fever or headache Calcium Carbonate (Calcium Carbonate 750 Mg Tab.Chew) 750 mg PO Q4H PRN PRN Reason: Heartburn Last Admin: 08/29/24 08:03 Dose: 750 mg Enoxaparin Sodium (Enoxaparin Sodium 40 Mg/0.4 Ml Syringe) 40 mg SUBCUT Q24H [facility] Last Admin: 08/29/24 00:29 Dose: 40 mg Piperacillin Sod/Tazobactam (Sod 4.5 gm/ Sodium Chloride) 100 mls @ 200 mls/hr IV Q6H [facility] Last Infusion: 08/29/24 07:16 Dose: Infused Magnesium Hydroxide (Milk Of Magnesia 30 Ml Oral.Susp) 30 ml PO DAILY PRN PRN Reason: Constipation Melatonin (Melatonin 3 Mg Tablet) 6 mg PO BEDTIME PRN PRN Reason: Insomnia Ondansetron HCl (Ondansetron Hcl 4 Mg/2 Ml Vial) 4 mg IVPUSH Q8H PRN PRN Reason: Nausea and Vomiting Sodium Chloride (0.9 % Sodium Chloride Flush 3 Ml Syringe) 3 ml IVFLUSH QSHIFT [facility] Last Admin: 08/29/24 08:04 Dose: 3 ml Home Medications ?Medication ?Instructions ?Recorded ?Confirmed ?Last Taken ?Type aspirin 81 mg tablet,delayed 81 mg PO DAILY 03/16/21 03/13/24 04/03/23 History release diphenhydramine 25 1 tab PO BEDTIME PRN 04/25/23 03/13/24 Unknown History mg-acetaminophen 500 mg tablet (Tylenol PM Extra Strength) CPAP (CPAP Machine/Device) 06/13/23 03/13/24 Unknown History omeprazole 40 mg capsule,delayed 40 mg PO DAILY 10/22/23 03/13/24 Unknown History release prednisone 10 mg tablet PO 08/29/24 Unknown History Physical Exam 2 Vital Signs: Vital Signs: Last Vital Signs Temp 98.2 F 08/29/24 06:31 Pulse 72 08/29/24 06:31 Resp 18 08/29/24 06:31 BP 131/71 08/29/24 06:31 Pulse Ox 97 08/29/24 06:31 O2 Del Method Room Air 08/29/24 06:31 BMI result Body Mass Index 29.0 Const: General: cooperative and no acute distress Nutritional Appearance: w ell nourished Orientation/consciousness: patient oriented x3 Limitations: no limitations HEENT: Head: Yes normocephalic and Yes atraumatic Ears: hearing grossly normal bilaterally Eyes: Sclerae: sclerae normal Resp: Effort & Inspection: normal respiratory effort, no audible wheezes, no cough and no respiratory distress Cardio: Jugular venous distension: no JVD GI: Inspection: Yes normal to inspection Palpation (GI): Soft to palpation, Tenderness to palpation present (GI) in the RUQ, no guarding, not rigid and No hepatosplenomegaly present Percussion: Yes normal to percussion A uscultation: normal bowel sounds Rectal Exam - Male: Yes deferred Skin: Other: Warm, dry, no rash Neuro: General: patient oriented x3 Extrem: General: Yes no clubbing, cyanosis or edema Results Labs 08/29/24 06:09 08/29/24 06:09 Labs: Abnormal lab results 08/28/24 08/29/24 Range/Units 20:08 06:09 WBC 17.1 H 13.8 H (4.8-10.8) X10*3/uL RBC 4.46 L 4.20 L (4.60-5.80) X10*6/uL Hgb 13.3 L (14.0-18.0) g/dl Hct 40.2 L 38.1 L (42.0-52.0) % Plt Count 146 L (160-400) X10*3/uL Immature Gran % (Auto) 0.8 H 0.7 H (0.0-0.4) % Neut % (Auto) 89.8 H 85.6 H (45-73) % Lymph % (Auto) 2.6 L 5.9 L (20-40) % Lymph # (Auto) 0.4 L 0.8 L (1.2-4.9) X10*3/uL Abs Immat Gran (auto) 0.14 H 0.09 H (0.00-0.03) X10*3/uL Absolute Neuts (auto) 15.3 H 11.8 H (2.0-8.3) x10*3/uL BUN 31 H 27 H (9-16) mg/dL Random Glucose 127 H 118 H (60-115) mg/dL Lactic Acid 3.3 H* (0.5-2.0) mmol/L Calcium 8.2 L D (8.4-10.2) mg/dL Total Bilirubin 5.7 H 8.2 H (0.0-1.0) mg/dL AST 216 H 113 H (5-37) U/L ALT 203 H 166 H (0-40) U/L Alkaline Phosphatase 154 H 137 H (39-117) U/L Total Protein 5.9 L 5.0 L (6.5-8.0) g/dL Albumin 3.1 L (3.5-5.0) g/dL Short CBC 08/28/24 08/29/24 Range/Units 20:08 06:09 WBC 17.1 H 13.8 H (4.8-10.8) X10*3/uL Hgb 14.1 13.3 L (14.0-18.0) g/dl Hct 40.2 L 38.1 L (42.0-52.0) % Plt Count 169 146 L (160-400) X10*3/uL BMP 08/28/24 08/29/24 20:08 06:09 Sodium 139 141 Potassium 3.4 3.3 Chloride 100 107 Carbon Dioxide 25 24 BUN 31 H 27 H Creatinine 1.21 1.09 Calcium 9.2 8.2 L D Liver Function 08/28/24 08/29/24 Range/Units 20:08 06:09 Total Bilirubin 5.7 H 8.2 H (0.0-1.0) mg/dL AST 216 H 113 H (5-37) U/L ALT 203 H 166 H (0-40) U/L Alkaline Phosphatase 154 H 137 H (39-117) U/L Albumin 3.7 3.1 L (3.5-5.0) g/dL Urine 08/28/24 Range/Units 22:18 Urine Color Dark Yellow Urine Appearance Clear Urine pH 5.5 (5.0-9.0) Ur Specific [place] 1.015 (1.005-1.025) Urine Protein Negative (Neg-Trace) mg/dL Urine Glucose (UA) Negative (Negative) mg/dL All other labs normal. Assessment and Plan (1) Abdominal pain: Qualifiers: Abdominal location: right upper quadrant Qualified Code(s): R10.11 - Right upper quadrant pain Status: Acute Plan 79-year-old male patient presenting with complaints of acid indigestion found to have tenderness in the right upper quadrant and findings of elevated liver function tests, dilated gallbladder and common bile duct suggestive of biliary disease. No definite gallstones are appreciated by CT. We will await ultrasound findings. Bilirubins are trending downward suggestive of a passed gallstone. MRCP would be helpful to evaluate for common bile duct obstruction. Procedures Date of Service Date of Service: 08/29/24
--- NOTE | 2024-08-29 08:40 | PHA.MEDREC ---
Addendum entered by Yumiko Ramirez RPh 08/29/24 09:04: [facility] REVIEWED Original Note: Pharmacy Consult ? Medication Reconciliation Pharmacy has completed the medication reconciliation. Confirmed mediations with patient. Patient confirmed he is still taking the Prednisone 10mg tab taper 4 tabs for 5 days, 3 tabs for 5 days, 2 tabs for 5 days, 1 tabs for 5 days and he states he just finished the 2 tabs for 5 days and was suppose to start the 1 tab for 5 day regimen today but didn't get to take any medications today due to him coming in. He also confirmed he is taking his Carvedilol 3.125mg tab once daily instead of twice a day like it originally was and patient states hes been taking it once daily all along . He confirmed he is taking Methotrexate 2.5mg 6 tabs (15mg) on Tuesdays and took it this past Sunday and every day but Sunday he is taking a Folic Acid 1mg tab 1 tab daily. he confirmed he took his medications yesterday except the Tamsulosin 0.4mg tab he takes that at bedtime and was not able to take that due to coming here, but states he took it 08/27.
--- NOTE | 2024-08-29 10:23 | PC.NURSE ---
MRI screening form sent to MRI. MRI asked that pt be NPO for 6 hours for MRCP. Pt had breakfast this morning (diet order is in). MRI planned for sometime after 1pm. will hold PO meds
[2024-08-29] MEDS: predniSONE 10 MG TABLET PO (11:26)
--- NOTE | 2024-08-29 12:18 | MHC.CM.PN ---
PT IS INDEPENDENT HAD NO SERVICES WILL ARRANGE OWN TRANSPORTAION HOME
--- NOTE | 2024-08-29 17:18 | PC.NURSE ---
assumed care of pt at 1300, pt initially NPO pending MRCP, pt to MRI w screening form. pt returned back from MRI and reports tolerating well, denies any pain, resting quietly watching television eating dinner tray. pt's partial dentures are in a cup at [email or web address]
[2024-08-29] MEDS: Tamsulosin HCL 0.4 MG CAPSULE PO (20:20)
[2024-08-30] MEDS: Enoxaparin Sodium 40 MG/0.4 ML SYRINGE SUBCUT ×2 (00:50→23:24)
[2024-08-30] MEDS: Flu Vacc TS2024-25(6mos up)/PF 0.5 ML SYRINGE IM (00:55)
[2024-08-30] MEDS: Piperacillin Sodium/Tazobactam 4.5 GM in 0.9 % Sodium Chloride 100 ML IV ×5 (00:59→23:23)
[2024-08-30] MEDS: 0.9 % Sodium Chloride Flush 3 ML SYRINGE IVFLUSH ×4 (00:59→20:52)
[2024-08-30 04:00] VITALS: BP 141/77; PULSE 83; RESP 17; TEMP 36.7; O2SAT 97
[2024-08-30] MEDS: Omeprazole 40 MG CAPSULE.DR PO (06:04)
--- NOTE | 2024-08-30 07:25 | PC.NURSE ---
refusing fall risk interventions.
[2024-08-30 07:49] LABS: Hematocrit 36.6 % (42.0-52.0); Hemoglobin 12.5 g/dl (14.0-18.0); Mean Corpuscular HGB Conc 34.2 g/dl (31.0-36.0); Mean Corpuscular Hemoglobin 31.3 pg (27.0-33.0); Mean Corpuscular Volume 91.7 fL (80.0-98.0); Mean Platelet Volume 10.4 fL (9.4-12.4); Platelet Count 151 X10*3/uL (160-400); Red Blood Count 3.99 X10*6/uL (4.60-5.80); Red Cell Distribution Width 14.6 % (11.0-16.0); White Blood Count 9.7 X10*3/uL (4.8-10.8)
[2024-08-30 07:55] VITALS: BP 134/71; PULSE 78; RESP 18; TEMP 37.4; O2SAT 96
[2024-08-30 08:01] LABS: Anion Gap 11 (12-20); Blood Urea Nitrogen 15 mg/dL (9-16); Calcium 8.5 mg/dL (8.4-10.2); Carbon Dioxide 25 mmol/L (22-29); Chloride 108 mmol/L (96-108); Creatinine Clr Calc Pharmacy 67.5; Estimated Glomerular Filt Rate > 60; Glucose Random 106 mg/dL (60-115); Potassium 3.1 mmol/L (3.3-5.1); Sodium 141 mmol/L (135-145)
[2024-08-30] MEDS: Aspirin Enteric Coated 81 MG TABLET.DR PO (08:32)
[2024-08-30] MEDS: predniSONE 10 MG TABLET PO (08:32)
[2024-08-30] MEDS: carvediloL 3.125 MG TABLET PO (08:32)
[2024-08-30] MEDS: Folic Acid 1 MG TABLET PO (08:32)
--- NOTE | 2024-08-30 08:50 | HO.PM.IMPN ---
Subjective Subjective Date of Service: 08/30/24 Interval History: follow up abdominal sepsis, GNR bacteremia has no pain, no fever, WBC nl Physical Exam Vital Signs: Vital Signs: Last Vital Signs Temp 99.3 F 08/30/24 07:55 Pulse 78 08/30/24 07:55 Resp 18 08/30/24 07:55 BP 134/71 08/30/24 07:55 Pulse Ox 96 08/30/24 07:55 O2 Del Method Room Air 08/30/24 07:55 BMI result Body Mass Index 30.6 Const: Other: General: AO X 3, no acute distress Resp: CTA bilateral CVS: S1,S2,RRR GI: +BS, NT, no distention Skin: No rash Neuro: motor grossly intact Psych: appropriate affect Objective Data Active Medications Acetaminophen (Acetaminophen 325 Mg Tablet) 650 mg PO Q6H PRN PRN Reason: Pain, Mild (Pain Scale 1-3), fever or headache Aspirin (Aspirin Enteric Coated 81 Mg Tablet.) 81 mg PO DAILY [facility] Last Admin: 08/30/24 08:32 Dose: 81 mg Documented By: CHANTE Calcium Carbonate (Calcium Carbonate 750 Mg Tab.Chew) 750 mg PO Q4H PRN PRN Reason: Heartburn Last Admin: 08/29/24 08:03 Dose: 750 mg Documented By: WESLEY Carvedilol (Carvedilol 3.125 Mg Tablet) 3.125 mg PO DAILY [facility]; Protocol Last Admin: 08/30/24 08:32 Dose: 3.125 mg Documented By: CHANTE Enoxaparin Sodium (Enoxaparin Sodium 40 Mg/0.4 Ml Syringe) 40 mg SUBCUT Q24H [facility] Last Admin: 08/30/24 00:50 Dose: 40 mg Documented By: PETTY Folic Acid (Folic Acid 1 Mg Tablet) 1 mg PO SUMOWETHFRSA@0900 [facility] Last Admin: 08/30/24 08:32 Dose: 1 mg Documented By: CHANTE Furosemide (Furosemide 40 Mg Tablet) 40 mg PO DAILY [facility]; Protocol Last Admin: 08/30/24 08:11 Dose: Not Given Documented By: CHNATE Non-Admin Reason: hold per Piperacillin Sod/Tazobactam (Sod 4.5 gm/ Sodium Chloride) 100 mls @ 200 mls/hr IV Q6H [facility] Last Infusion: 08/30/24 06:41 Dose: Infused Documented By: PETTY Magnesium Hydroxide (Milk Of Magnesia 30 Ml Oral.Susp) 30 ml PO DAILY PRN PRN Reason: Constipation Melatonin (Melatonin 3 Mg Tablet) 6 mg PO BEDTIME PRN PRN Reason: Insomnia Methotrexate (Methotrexate Sodium 2.5 Mg Tablet) 15 mg PO TU@0900 [facility] Omeprazole (Omeprazole 40 Mg Capsule.Dr) 40 mg PO DAILY@0630 [facility] Last Admin: 08/30/24 06:04 Dose: 40 mg Documented By: PETTY Ondansetron HCl (Ondansetron Hcl 4 Mg/2 Ml Vial) 4 mg IVPUSH Q8H PRN PRN Reason: Nausea and Vomiting Prednisone (Prednisone 10 Mg Tablet) 10 mg PO DAILY [facility] Stop: 09/02/24 09:01 Last Admin: 08/30/24 08:32 Dose: 10 mg Documented By: CHANTE Sodium Chloride (0.9 % Sodium Chloride Flush 3 Ml Syringe) 3 ml IVFLUSH QSHIFT [facility] Last Admin: 08/30/24 08:33 Dose: 3 ml Documented By: CHANTE Tamsulosin HCl (Tamsulosin Hcl 0.4 Mg Capsule) 0.4 mg PO BEDTIME [facility] Last Admin: 08/29/24 20:20 Dose: 0.4 mg Documented By: PETTY Labs 08/30/24 05:57 08/30/24 05:57 Labs: Laboratory Results - last 24 hr 08/30/24 05:57 MCV 91.7 MCH 31.3 MCHC 34.2 RDW 14.6 Plt Count 151 L MPV 10.4 Absolute Nucleated RBC 0.000 Nucleated RBC % (auto) 0.0 Anion Gap 11 L Estim Creat Clear Calc 67.5 Estimated GFR > 60 Random Glucose 106 Calcium 8.5 Microbiology Microbiology Results: Microbiology 08/28/24 20:08 Blood Culture - Preliminary Blood - Venous Gram negative nuria 08/28/24 21:26 Blood Culture - Preliminary Blood - Venous No growth after 24 hours. Assessment and Plan (1) Sepsis: Status: Acute Plan 79/m HTN, HLD, pulm HTN, h/o gastric ulcer, GERD, CAD, bifasicular block, BPH here with abdominal pain, fever and leukocytosis, elevated LFTS, CT shows dilated CBC but no stone or sludge of thickening of GB Sepsis d/t abdominal source,concern for galbladder process, sepssis resolved, wbc down, no more fever Gram negative nuria bacteremia, sensitivity pending -Continue empiric Zosyn -Surgery following - MRCP result pending -morphine for pain Acute lactic acidosis due to sepsis--resolved Hypokalemia--oral suplement CAD/mixed hyperlipidemia: Continue aspirin and beta-mary ellen. Hold statin Hypertension -hold lasix GERD -PPI BPH - Flomax Skin rash, unknown etiology: -On outpatient methotrexate, and prednisone DVT prophylaxis: Lovenox Full code. Discussed with patient at bedside need for inpt: abdominal process sepsis Quality Stroke Does the patient have a stroke diagnosis?: No VTE Prior VTE?: No VTE Risk Level:: Medical - moderate - high VTE Device Contraindication: Treatment Not Indicated VTE Drug Contraindication: N/A - Med Ordered
--- NOTE | 2024-08-30 09:04 | P.PNGS_ITS ---
Subjective Subjective Date of Service: 08/30/24 Interval history: Patient reports feeling much improved with no further abdominal pain. He still notes his urine to be quite dark. Physical Exam 2 Vital Signs: Vital Signs: Last Vital Signs Temp 99.3 F 08/30/24 07:55 Pulse 78 08/30/24 07:55 Resp 18 08/30/24 07:55 BP 134/71 08/30/24 07:55 Pulse Ox 96 08/30/24 07:55 O2 Del Method Room Air 08/30/24 07:55 BMI result Body Mass Index 30.6 Const: General: comfortable Nutritional Appearance: well nourished O rientation/consciousness: patient oriented x3 Eyes: Sclerae: scleral abnormal (Bilateral scleral icterus) Resp: Effort & Inspection: normal respiratory effort GI: Other: Negative Cedeno sign Inspection: Yes normal to inspection Palpation (GI): Soft to palpation, nontender, no guarding and not rigid Skin: Other: Jaundice Neuro: General: patient oriented x3 Objective Data Active Medications Acetaminophen (Acetaminophen 325 Mg Tablet) 650 mg PO Q6H PRN PRN Reason: Pain, Mild (Pain Scale 1-3), fever or headache Aspirin (Aspirin Enteric Coated 81 Mg Tablet.Dr) 81 mg PO DAILY [facility] Last Admin: 08/30/24 08:32 Dose: 81 mg Documented By: CHANTE Calcium Carbonate (Calcium Carbonate 750 Mg Tab.Chew) 750 mg PO Q4H PRN PRN Reason: Heartburn Last Admin: 08/29/24 08:03 Dose: 750 mg Documented By: WESLEY Carvedilol (Carvedilol 3.125 Mg Tablet) 3.125 mg PO DAILY [facility]; Protocol Last Admin: 08/30/24 08:32 Dose: 3.125 mg Documented By: CHANTE Enoxaparin Sodium (Enoxaparin Sodium 40 Mg/0.4 Ml Syringe) 40 mg SUBCUT Q24H [facility] Last Admin: 08/30/24 00:50 Dose: 40 mg Documented By: PETTY Folic Acid (Folic Acid 1 Mg Tablet) 1 mg PO SUMOWETHFRSA@0900 [facility] Last Admin: 08/30/24 08:32 Dose: 1 mg Documented By: CHANTE Furosemide (Furosemide 40 Mg Tablet) 40 mg PO DAILY [facility]; Protocol Last Admin: 08/30/24 08:11 Dose: Not Given Documented By: CHANTE Non-Admin Reason: hold per Piperacillin Sod/Tazobactam (Sod 4.5 gm/ Sodium Chloride) 100 mls @ 200 mls/hr IV Q6H [facility] Last Infusion: 08/30/24 06:41 Dose: Infused Documented By: PETTY Magnesium Hydroxide (Milk Of Magnesia 30 Ml Oral.Susp) 30 ml PO DAILY PRN PRN Reason: Constipation Melatonin (Melatonin 3 Mg Tablet) 6 mg PO BEDTIME PRN PRN Reason: Insomnia Omeprazole (Omeprazole 40 Mg Capsule.Dr) 40 mg PO DAILY@0630 [facility] Last Admin: 08/30/24 06:04 Dose: 40 mg Documented By: PETTY Ondansetron HCl (Ondansetron Hcl 4 Mg/2 Ml Vial) 4 mg IVPUSH Q8H PRN PRN Reason: Nausea and Vomiting Prednisone (Prednisone 10 Mg Tablet) 10 mg PO DAILY [facility] Stop: 09/02/24 09:01 Last Admin: 08/30/24 08:32 Dose: 10 mg Documented By: CHANTE Sodium Chloride (0.9 % Sodium Chloride Flush 3 Ml Syringe) 3 ml IVFLUSH QSHIFT [facility] Last Admin: 08/30/24 08:33 Dose: 3 ml Documented By: CHANTE Tamsulosin HCl (Tamsulosin Hcl 0.4 Mg Capsule) 0.4 mg PO BEDTIME [facility] Last Admin: 08/29/24 20:20 Dose: 0.4 mg Documented By: PETTY Labs 08/30/24 05:57 08/30/24 05:57 Labs: Laboratory Results - last 24 hr 08/30/24 05:57 MCV 91.7 MCH 31.3 MCHC 34.2 RDW 14.6 Plt Count 151 L MPV 10.4 Absolute Nucleated RBC 0.000 Nucleated RBC % (auto) 0.0 Anion Gap 11 L Estim Creat Clear Calc 67.5 Estimated GFR > 60 Random Glucose 106 Calcium 8.5 Imaging MRI - abdomen: My impression: Review of MRI reveals distended gallbladder, I am unable to visualize any gallstones within the gallbladder. There may be some pericholecystic fluid. Common bile duct is dilated to a proximally 1.3 cm. There may be some filling defects in the distal common bile duct. Awaiting official read of MRI. Microbiology Microbiology Results: Microbiology 08/28/24 20:08 Blood Culture - Preliminary Blood - Venous Gram negative nuria 08/28/24 21:26 Blood Culture - Preliminary Blood - Venous No growth after 24 hours. Procedures Date of Service Date of Service: 08/30/24 Progress Note: A&P Assessment and plan (1) Abdominal pain: Status: Acute (2) Jaundice: Status: Acute Plan 79-year-old male patient initially presenting with acid reflux now with no further abdominal pain. On examination he is obviously jaundice with no abdominal tenderness. MRI reveals a distended gallbladder and dilated common bile duct. Official MRI reading not available at the time of this dictation. Possibilities include: Common bile duct stone, Mirizzi syndrome, medications (Methotrexate) or neoplasm. I will consult Gastroenterology for further evaluation of painless jaundice. Discussed findings with patient's daughter (Nancy) this morning. Time Spent With Patient Time: Total time managing care of this patient today ____ minutes. Quality Stroke Does the patient have a stroke diagnosis?: No VTE Prior VTE?: No VTE Risk Level:: Medical - moderate - high VTE Device Contraindication: Treatment Not Indicated VTE Drug Contraindication: N/A - Med Ordered
[2024-08-30] MEDS: Potassium Chloride Packet 20 MEQ PACKET 40 MEQ PO (09:07)
[2024-08-30 09:11] LABS: Alanine Aminotransferase 121 U/L (0-40); Albumin Level 2.9 g/dL (3.5-5.0); Alkaline Phosphatase 126 U/L (39-117); Aspartate Amino Transferase 55 U/L (5-37); Bilirubin Direct 5.6 mg/dL (0.0-0.5); Bilirubin Total 7.5 mg/dL (0.0-1.0)
[2024-08-30 16:09] VITALS: BP 126/72; PULSE 77; RESP 18; TEMP 36.5; O2SAT 96
[2024-08-30 20:00] VITALS: BP 131/74; PULSE 74; RESP 16; TEMP 36.5; O2SAT 98
[2024-08-30] MEDS: Tamsulosin HCL 0.4 MG CAPSULE PO (20:51)
[2024-08-31 03:50] VITALS: BP 139/86; PULSE 76; RESP 18; TEMP 36.4
[2024-08-31] MEDS: Omeprazole 40 MG CAPSULE.DR PO (05:36)
[2024-08-31] MEDS: Piperacillin Sodium/Tazobactam 4.5 GM in 0.9 % Sodium Chloride 100 ML IV (05:36)
[2024-08-31 07:12] LABS: Alanine Aminotransferase 98 U/L (0-40); Albumin Level 2.9 g/dL (3.5-5.0); Alkaline Phosphatase 134 U/L (39-117); Anion Gap 16 (12-20); Aspartate Amino Transferase 38 U/L (5-37); Bilirubin Direct 3.1 mg/dL (0.0-0.5); Bilirubin Total 4.2 mg/dL (0.0-1.0); Blood Urea Nitrogen 17 mg/dL (9-16); Calcium 8.1 mg/dL (8.4-10.2); Carbon Dioxide 24 mmol/L (22-29); Chloride 107 mmol/L (96-108); Estimated Glomerular Filt Rate > 60; Glucose Random 92 mg/dL (60-115); Potassium 3.8 mmol/L (3.3-5.1); Sodium 143 mmol/L (135-145); Total Protein 4.9 g/dL (6.5-8.0)
[2024-08-31 07:51] VITALS: BP 141/82; PULSE 73; RESP 14; TEMP 36.4; O2SAT 97
[2024-08-31] MEDS: predniSONE 10 MG TABLET PO (08:17)
[2024-08-31] MEDS: carvediloL 3.125 MG TABLET PO (08:17)
[2024-08-31] MEDS: Aspirin Enteric Coated 81 MG TABLET.DR PO (08:17)
[2024-08-31] MEDS: Folic Acid 1 MG TABLET PO (08:17)
[2024-08-31] MEDS: 0.9 % Sodium Chloride Flush 3 ML SYRINGE IVFLUSH ×3 (08:17→19:58)
[2024-08-31] MEDS: Furosemide 40 MG TABLET PO (09:00)
--- NOTE | 2024-08-31 09:15 | PM.PNGS ---
Subjective Subjective Date of Service: 08/31/24 Interval history: No new complaints. MRI from 08/29/2024 still has not been read. Ultrasound of abdomen performed this morning. Physical Exam Vital Signs: Vital Signs: Last Vital Signs Temp 97.6 F 08/31/24 07:51 Pulse 73 08/31/24 07:51 Resp 14 08/31/24 07:51 BP 141/82 H 08/31/24 07:51 Pulse Ox 97 08/31/24 07:51 O2 Del Method Room Air 08/31/24 07:51 O2 Flow Rate 98 08/31/24 03:50 BMI result Body Mass Index 30.6 Const: General: comfortable Nutritional Appearance: well nourished Orientation/consciousness: patient oriented x3 Eyes: Sclerae: scleral abnormal (Bilateral scleral icterus) Resp: Effort & Inspection: normal respiratory effort GI: Other: Negative Cedeno sign Inspection: Yes normal to inspection Palpation (GI): Soft to palpation, nontender, no guarding and not rigid Skin: Other: Jaundice Neuro: General: patient oriented x3 Objective Data Active Medications Acetaminophen (Acetaminophen 325 Mg Tablet) 650 mg PO Q6H PRN PRN Reason: Pain, Mild (Pain Scale 1-3), fever or headache Aspirin (Aspirin Enteric Coated 81 Mg Tablet.Dr) 81 mg PO DAILY [facility] Last Admin: 08/31/24 08:17 Dose: 81 mg Documented By: CHANTE Calcium Carbonate (Calcium Carbonate 750 Mg Tab.Chew) 750 mg PO Q4H PRN PRN Reason: Heartburn Last Admin: 08/29/24 08:03 Dose: 750 mg Documented By: WESLEY Carvedilol (Carvedilol 3.125 Mg Tablet) 3.125 mg PO DAILY [facility]; Protocol Last Admin: 08/31/24 08:17 Dose: 3.125 mg Documented By: CHANTE Enoxaparin Sodium (Enoxaparin Sodium 40 Mg/0.4 Ml Syringe) 40 mg SUBCUT Q24H [facility] Last Admin: 08/30/24 23:24 Dose: 40 mg Documented By: PETTY Folic Acid (Folic Acid 1 Mg Tablet) 1 mg PO SUMOWETHFRSA@0900 [facility] Last Admin: 08/31/24 08:17 Dose: 1 mg Documented By: CHANTE Furosemide (Furosemide 40 Mg Tablet) 40 mg PO DAILY [facility]; Protocol Last Admin: 08/31/24 09:00 Dose: 40 mg Documented By: CHANTE Piperacillin Sod/Tazobactam (Sod 4.5 gm/ Sodium Chloride) 100 mls @ 200 mls/hr IV Q6H [facility] Last Infusion: 08/31/24 06:18 Dose: Infused Documented By: PETTY Magnesium Hydroxide (Milk Of Magnesia 30 Ml Oral.Susp) 30 ml PO DAILY PRN PRN Reason: Constipation Melatonin (Melatonin 3 Mg Tablet) 6 mg PO BEDTIME PRN PRN Reason: Insomnia Omeprazole (Omeprazole 40 Mg Capsule.Dr) 40 mg PO DAILY@0630 [facility] Last Admin: 08/31/24 05:36 Dose: 40 mg Documented By: PETTY Ondansetron HCl (Ondansetron Hcl 4 Mg/2 Ml Vial) 4 mg IVPUSH Q8H PRN PRN Reason: Nausea and Vomiting Prednisone (Prednisone 10 Mg Tablet) 10 mg PO DAILY [facility] Stop: 09/02/24 09:01 Last Admin: 08/31/24 08:17 Dose: 10 mg Documented By: CHANTE Sodium Chloride (0.9 % Sodium Chloride Flush 3 Ml Syringe) 3 ml IVFLUSH QSHIFT [facility] Last Admin: 08/31/24 08:17 Dose: 3 ml Documented By: CHANTE Tamsulosin HCl (Tamsulosin Hcl 0.4 Mg Capsule) 0.4 mg PO BEDTIME [facility] Last Admin: 08/30/24 20:51 Dose: 0.4 mg Documented By: PETTY Labs 08/30/24 05:57 08/31/24 05:42 Labs: Laboratory Results - last 24 hr 08/31/24 05:42 Anion Gap 16 Estim Creat Clear Calc 74.0 Estimated GFR > 60 Random Glucose 92 Calcium 8.1 L Total Bilirubin 4.2 H Direct Bilirubin 3.1 H AST 38 H ALT 98 H Alkaline Phosphatase 134 H Total Protein 4.9 L Albumin 2.9 L Microbiology Microbiology Results: Microbiology 08/28/24 20:08 Blood Culture - Final Blood - Venous Klebsiella pneumoniae 08/28/24 21:26 Blood Culture - Preliminary Blood - Venous No growth after 48 hours. Procedures Date of Service Date of Service: 08/31/24 Progress Note: A&P Assessment and plan (1) Jaundice: Status: Acute (2) Abdominal pain: Status: Acute Plan Bilirubin level appears to be improving from yesterday suggestive of a passed stone. It would be helpful to have a reading of the MRI to decide on the next steps. I have consulted Gastroenterology, discussed with Dr. Roth. If this is indeed due to cholelithiasis, we will plan on cholecystectomy early this week if medically cleared. Time Spent With Patient Time: Total time managing care of this patient today ____ minutes. Quality Stroke Does the patient have a stroke diagnosis?: No VTE Prior VTE?: No VTE Risk Level:: Medical - moderate - high VTE Device Contraindication: Treatment Not Indicated VTE Drug Contraindication: N/A - Med Ordered
--- NOTE | 2024-08-31 10:19 | HO.PM.IMPN ---
Subjective Subjective Date of Service: 08/31/24 Interval History: follow up abdominal sepsis, GNR bacteremia has no pain, no fever, WBC nl Physical Exam Vital Signs: Vital Signs: Last Vital Signs Temp 97.6 F 08/31/24 07:51 Pulse 73 08/31/24 07:51 Resp 14 08/31/24 07:51 BP 141/82 H 08/31/24 07:51 Pulse Ox 97 08/31/24 07:51 O2 Del Method Room Air 08/31/24 07:51 O2 Flow Rate 98 08/31/24 03:50 BMI result Body Mass Index 30.6 Const: Other: General: AO X 3, no acute distress Resp: CTA bilateral CVS: S1,S2,RRR GI: +BS, NT, no distention Skin: No rash Neuro: motor grossly intact Psych: appropriate affect Objective Data Active Medications Acetaminophen (Acetaminophen 325 Mg Tablet) 650 mg PO Q6H PRN PRN Reason: Pain, Mild (Pain Scale 1-3), fever or headache Aspirin (Aspirin Enteric Coated 81 Mg Tablet.Dr) 81 mg PO DAILY [facility] Last Admin: 08/31/24 08:17 Dose: 81 mg Documented By: CHANTE Calcium Carbonate (Calcium Carbonate 750 Mg Tab.Chew) 750 mg PO Q4H PRN PRN Reason: Heartburn Last Admin: 08/29/24 08:03 Dose: 750 mg Documented By: WESLEY Carvedilol (Carvedilol 3.125 Mg Tablet) 3.125 mg PO DAILY [facility]; Protocol Last Admin: 08/31/24 08:17 Dose: 3.125 mg Documented By: CHANTE Enoxaparin Sodium (Enoxaparin Sodium 40 Mg/0.4 Ml Syringe) 40 mg SUBCUT Q24H [facility] Last Admin: 08/30/24 23:24 Dose: 40 mg Documented By: PETTY Folic Acid (Folic Acid 1 Mg Tablet) 1 mg PO SUMOWETHFRSA@0900 [facility] Last Admin: 08/31/24 08:17 Dose: 1 mg Documented By: CHANTE Furosemide (Furosemide 40 Mg Tablet) 40 mg PO DAILY [facility]; Protocol Last Admin: 08/31/24 09:00 Dose: 40 mg Documented By: CHANTE Piperacillin Sod/Tazobactam (Sod 4.5 gm/ Sodium Chloride) 100 mls @ 200 mls/hr IV Q6H [facility] Last Infusion: 08/31/24 06:18 Dose: Infused Documented By: PETTY Magnesium Hydroxide (Milk Of Magnesia 30 Ml Oral.Susp) 30 ml PO DAILY PRN PRN Reason: Constipation Melatonin (Melatonin 3 Mg Tablet) 6 mg PO BEDTIME PRN PRN Reason: Insomnia Omeprazole (Omeprazole 40 Mg Capsule.Dr) 40 mg PO DAILY@0630 [facility] Last Admin: 08/31/24 05:36 Dose: 40 mg Documented By: PETTY Ondansetron HCl (Ondansetron Hcl 4 Mg/2 Ml Vial) 4 mg IVPUSH Q8H PRN PRN Reason: Nausea and Vomiting Prednisone (Prednisone 10 Mg Tablet) 10 mg PO DAILY [facility] Stop: 09/02/24 09:01 Last Admin: 08/31/24 08:17 Dose: 10 mg Documented By: CHANTE Sodium Chloride (0.9 % Sodium Chloride Flush 3 Ml Syringe) 3 ml IVFLUSH QSHIFT [facility] Last Admin: 08/31/24 08:17 Dose: 3 ml Documented By: CHANTE Tamsulosin HCl (Tamsulosin Hcl 0.4 Mg Capsule) 0.4 mg PO BEDTIME [facility] Last Admin: 08/30/24 20:51 Dose: 0.4 mg Documented By: PETTY Labs 08/30/24 05:57 08/31/24 05:42 Labs: Laboratory Results - last 24 hr 08/31/24 05:42 Anion Gap 16 Estim Creat Clear Calc 74.0 Estimated GFR > 60 Random Glucose 92 Calcium 8.1 L Total Bilirubin 4.2 H Direct Bilirubin 3.1 H AST 38 H ALT 98 H Alkaline Phosphatase 134 H Total Protein 4.9 L Albumin 2.9 L Microbiology Microbiology Results: Microbiology 08/28/24 20:08 Blood Culture - Final Blood - Venous Klebsiella pneumoniae 08/28/24 21:26 Blood Culture - Preliminary Blood - Venous No growth after 48 hours. Assessment and Plan (1) Sepsis: Status: Acute Plan 79/m HTN, HLD, pulm HTN, h/o gastric ulcer, GERD, CAD, bifasicular block, BPH here with abdominal pain, fever and leukocytosis, elevated LFTS, CT shows dilated CBC but no stone or sludge of thickening of GB Sepsis d/t abdominal source,concern for galbladder process, sepssis resolved, wbc down, no more fever Klebsiela bacteremia, / -Zosyn since admission, change to Ceftriaxone 08/31 -Surgery following - MRCP result pending -morphine for pain -US done Elevated LFTs, with hyperbilirubin -trendind down -GI consult Acute lactic acidosis due to sepsis--resolved HypOkalemia--oral suplement CAD/mixed hyperlipidemia: Continue aspirin and beta-mary ellen. Hold statin d/t elevated lfts Hypertension -lasix GERD -PPI BPH - Flomax Skin rash, unknown etiology: -On outpatient methotrexate, and prednisone DVT prophylaxis: Lovenox Full code. Discussed with patient at bedside need for inpt: abdominal process sepsis Quality Stroke Does the patient have a stroke diagnosis?: No VTE Prior VTE?: No VTE Risk Level:: Medical - moderate - high VTE Device Contraindication: Treatment Not Indicated VTE Drug Contraindication: N/A - Med Ordered
[2024-08-31] MEDS: cefTRIAXone sodium 2 GM VIAL IVPUSH (10:55)
[2024-08-31 15:01] VITALS: BP 120/67; PULSE 70; RESP 18; TEMP 36.6; O2SAT 95
[2024-08-31 19:24] VITALS: BP 136/88; PULSE 87; RESP 18; TEMP 36.2; O2SAT 98
[2024-08-31] MEDS: Tamsulosin HCL 0.4 MG CAPSULE PO (19:54)
[2024-08-31] MEDS: Enoxaparin Sodium 40 MG/0.4 ML SYRINGE SUBCUT (23:21)
[2024-09-01 03:25] VITALS: BP 152/80; PULSE 70; RESP 18; TEMP 37.1; O2SAT 98
[2024-09-01] MEDS: Omeprazole 40 MG CAPSULE.DR PO (05:46)
[2024-09-01 07:14] VITALS: BP 170/79; PULSE 72; RESP 18; TEMP 36.2; O2SAT 98
[2024-09-01] MEDS: Aspirin Enteric Coated 81 MG TABLET.DR PO (08:11)
[2024-09-01] MEDS: predniSONE 10 MG TABLET PO (08:11)
[2024-09-01] MEDS: carvediloL 3.125 MG TABLET PO ×2 (08:11→09:56)
[2024-09-01] MEDS: Folic Acid 1 MG TABLET PO (08:11)
[2024-09-01] MEDS: Furosemide 40 MG TABLET PO (08:11)
[2024-09-01] MEDS: 0.9 % Sodium Chloride Flush 3 ML SYRINGE IVFLUSH ×3 (08:13→23:08)
--- NOTE | 2024-09-01 08:43 | PM.GICN ---
History of Present Illness Data of Consult Service Date: 09/01/24 Requesting physician: Iglesia Rosenberg Primary Care Provider: Irving Valentin MD HPI Reason for consult: Elevated LFTs This is an 79 gentleman with past medical history of hypertension, history of gastric ulcer, BPH who presented to hospital for abdominal pain and fever on 08/28. Reports 2 days of vague fatigue and loss of appetite with sudden onset of severe epigastric and right sided pain aftenoon. This was associated with nausea, vomiting and poor PO intake. Also reports having a fever at home. However, tells me that same night pain subsided and had complete resolution of abd pain by sunday morning. I fact has been able to tolerate diet over the weekend. On arrival to hospital noted to be afebrile with normal vitals. Labs were for elevated white count hemoconcentration. Chem 7 with elevated LFTs initial total bilirubin of 5.7, which climbed to 8.2 on 08/29. Normal renal function. CT abdomen pelvis shows gallbladder wall thickening, as well as CBD up to 1 cm without any ductal stone noted ultrasound. MRCP from 08/29/24 was personally reviewed has questionable diminutive defect mid to distal CBD. LFTs on 08/31 trended down. LFTs from today pending. Patient is currently on scheduled for lap tentatively on 09/02. Review of Systems Review of Systems: Yes all other systems are reviewed and are negative PMFSH Past Medical History Medical History GEOVANNI (obstructive sleep apnea) Obesity (BMI 30.0-34.9) Renal insufficiency Hx of skin pruritus Gout Gastric ulcer Obesity Pulmonary hypertension Essential hypertension HLD (hyperlipidemia) Family History Family History Father No problems noted. Mother Colon cancer Sister Colon cancer Brother Stomach cancer Surgical History Surgical History H/O colonoscopy H/O foot surgery History of cataract surgery Social History Social History Household Members: None Housing: House Do you presently have visiting nurse or other home services: No Alcohol intake: never Comment: 2 MTHS AGO Patient Tobacco Use Status: Former Tobacco user e-Cigarette/Vaping Use: Never Used Second Hand Smoke Exposure: No Advance Directives Date on File: 08/23/20 service: No Current occupational status: retired Cognitive needs: No Hearing needs: No Vision needs: Yes Meds Allergies Allergy/AdvReac Type Severity Reaction Status Date / Time allopurinol AdvReac Mild Rash Verified 08/28/24 19:47 atorvastatin AdvReac Mild Rash Verified 08/28/24 19:47 Active Medications: Current Medications Acetaminophen (Acetaminophen 325 Mg Tablet) 650 mg PO Q6H PRN PRN Reason: Pain, Mild (Pain Scale 1-3), fever or headache Aspirin (Aspirin Enteric Coated 81 Mg Tablet.) 81 mg PO DAILY [facility] Last Admin: 09/01/24 08:11 Dose: 81 mg Calcium Carbonate (Calcium Carbonate 750 Mg Tab.Chew) 750 mg PO Q4H PRN PRN Reason: Heartburn Last Admin: 08/29/24 08:03 Dose: 750 mg Carvedilol (Carvedilol 3.125 Mg Tablet) 3.125 mg PO DAILY [facility]; Protocol Last Admin: 09/01/24 08:11 Dose: 3.125 mg Ceftriaxone Sodium (Ceftriaxone Sodium 2 Gm Vial) 2 gm IVPUSH Q24H [facility] Last Admin: 08/31/24 10:55 Dose: 2 gm Enoxaparin Sodium (Enoxaparin Sodium 40 Mg/0.4 Ml Syringe) 40 mg SUBCUT Q24H [facility] Last Admin: 08/31/24 23:21 Dose: 40 mg Folic Acid (Folic Acid 1 Mg Tablet) 1 mg PO SUMOWETHFRSA@0900 [facility] Last Admin: 09/01/24 08:11 Dose: 1 mg Furosemide (Furosemide 40 Mg Tablet) 40 mg PO DAILY [facility]; Protocol Last Admin: 09/01/24 08:11 Dose: 40 mg Magnesium Hydroxide (Milk Of Magnesia 30 Ml Oral.Susp) 30 ml PO DAILY PRN PRN Reason: Constipation Melatonin (Melatonin 3 Mg Tablet) 6 mg PO BEDTIME PRN PRN Reason: Insomnia Omeprazole (Omeprazole 40 Mg Capsule.) 40 mg PO DAILY@0630 [facility] Last Admin: 09/01/24 05:46 Dose: 40 mg Ondansetron HCl (Ondansetron Hcl 4 Mg/2 Ml Vial) 4 mg IVPUSH Q8H PRN PRN Reason: Nausea and Vomiting Prednisone (Prednisone 10 Mg Tablet) 10 mg PO DAILY [facility] Stop: 09/02/24 09:01 Last Admin: 09/01/24 08:11 Dose: 10 mg Sodium Chloride (0.9 % Sodium Chloride Flush 3 Ml Syringe) 3 ml IVFLUSH QSHIFT [facility] Last Admin: 09/01/24 08:13 Dose: 3 ml Tamsulosin HCl (Tamsulosin Hcl 0.4 Mg Capsule) 0.4 mg PO BEDTIME [facility] Last Admin: 08/31/24 19:54 Dose: 0.4 mg Home Medications ?Medication ?Instructions ?Recorded ?Confirmed ?Last Taken ?Type aspirin 81 mg tablet,delayed 81 mg PO DAILY 03/16/21 08/29/24 08/28/24 History release diphenhydramine 25 1 tab PO BEDTIME PRN Pain 04/25/23 08/29/24 Unknown History mg-acetaminophen 500 mg tablet (Tylenol PM Extra Strength) CPAP (CPAP Machine/Device) 06/13/23 03/13/24 Unknown History omeprazole 40 mg capsule,delayed 40 mg PO DAILY@0630 10/22/23 08/29/24 08/28/24 History release carvedilol 3.125 mg tablet (Coreg) 3.125 mg PO DAILY 08/29/24 08/29/24 08/28/24 History folic acid 1 mg tablet 1 mg PO SUMOWETHFRSA@0900 08/29/24 08/29/24 08/28/24 History methotrexate sodium 2.5 mg tablet 15 mg PO TU@0900 08/29/24 08/29/24 08/26/24 History prednisone 10 mg tablet 10 mg PO DAILY 08/29/24 08/29/24 08/28/24 History tamsulosin 0.4 mg capsule 0.4 mg PO BEDTIME 08/29/24 08/29/24 08/27/24 History Physical Exam Vital Signs: Vital Signs: Last Vital Signs Temp 97.1 F 09/01/24 07:14 Pulse 72 09/01/24 07:14 Resp 18 09/01/24 07:14 BP 170/79 H 09/01/24 07:14 Pulse Ox 98 09/01/24 07:14 O2 Del Method Room Air 09/01/24 07:14 O2 Flow Rate 98 08/31/24 03:50 BMI result Body Mass Index 30.6 elderly gent NAD mildly icteric abd soft, nontender, nondistended, murphys negative mild HOLLY Results Labs 09/01/24 09:08 09/01/24 09:08 Microbiology Microbiology Results: Microbiology 08/28/24 20:08 Blood - Venous Blood Culture - Final Klebsiella pneumoniae 08/28/24 21:26 Blood - Venous Blood Culture - Preliminary No growth after 48 hours. Assessment and Plan (1) Abdominal pain: Qualifiers: Abdominal location: right upper quadrant Qualified Code(s): R10.11 - Right upper quadrant pain Status: Acute (2) Jaundice: Status: Acute (3) Dilated cbd, acquired: Status: Acute (4) Elevated LFTs: Status: Acute Plan Overall clinical picture suspicious for passed gallstone elliott given severe pain with abnl labs on arrival which then improved within 24h. Other ddx include ball-valving CBD stone, cholecystitis. Plan: -await formal MRCP read -LFTs ordered today -if LFTs down trend even further, would be more consistent with a passed stone, in which case should be okay to proceed with cholecystectomy. Consider [facility]. Thank you for allowing me to participate in his care. PLs do not hesitate to reach out for questions or concerns. Procedures Date of Service Date of Service: 09/01/24
--- NOTE | 2024-09-01 09:16 | HO.PM.IMPN ---
Subjective Subjective Date of Service: 09/01/24 Interval History: follow up abdominal sepsis, GNR bacteremia has no pain Physical Exam Vital Signs: Vital Signs: Last Vital Signs Temp 97.1 F 09/01/24 07:14 Pulse 72 09/01/24 07:14 Resp 18 09/01/24 07:14 BP 170/79 H 09/01/24 07:14 Pulse Ox 98 09/01/24 07:14 O2 Del Method Room Air 09/01/24 07:14 O2 Flow Rate 98 08/31/24 03:50 BMI result Body Mass Index 30.6 Const: Other: General: AO X 3, no acute distress Resp: CTA bilateral CVS: S1,S2,RRR. 2+ leg edam GI: +BS, NT, no distention Skin: No rash Neuro: motor grossly intact Psych: appropriate affect Objective Data Active Medications Acetaminophen (Acetaminophen 325 Mg Tablet) 650 mg PO Q6H PRN PRN Reason: Pain, Mild (Pain Scale 1-3), fever or headache Aspirin (Aspirin Enteric Coated 81 Mg Tablet.) 81 mg PO DAILY [facility] Last Admin: 09/01/24 08:11 Dose: 81 mg Documented By: MATTHEW Calcium Carbonate (Calcium Carbonate 750 Mg Tab.Chew) 750 mg PO Q4H PRN PRN Reason: Heartburn Last Admin: 08/29/24 08:03 Dose: 750 mg Documented By: WESLEY Carvedilol (Carvedilol 3.125 Mg Tablet) 3.125 mg PO DAILY [facility]; Protocol Last Admin: 09/01/24 08:11 Dose: 3.125 mg Documented By: MATTHEW Ceftriaxone Sodium (Ceftriaxone Sodium 2 Gm Vial) 2 gm IVPUSH Q24H [facility] Last Admin: 08/31/24 10:55 Dose: 2 gm Documented By: CHANTE Enoxaparin Sodium (Enoxaparin Sodium 40 Mg/0.4 Ml Syringe) 40 mg SUBCUT Q24H [facility] Last Admin: 08/31/24 23:21 Dose: 40 mg Documented By: PETTY Folic Acid (Folic Acid 1 Mg Tablet) 1 mg PO SUMOWETHFRSA@0900 [facility] Last Admin: 09/01/24 08:11 Dose: 1 mg Documented By: MATTHEW Furosemide (Furosemide 40 Mg Tablet) 40 mg PO DAILY [facility]; Protocol Last Admin: 09/01/24 08:11 Dose: 40 mg Documented By: MATTHEW Magnesium Hydroxide (Milk Of Magnesia 30 Ml Oral.Susp) 30 ml PO DAILY PRN PRN Reason: Constipation Melatonin (Melatonin 3 Mg Tablet) 6 mg PO BEDTIME PRN PRN Reason: Insomnia Omeprazole (Omeprazole 40 Mg Capsule.Dr) 40 mg PO DAILY@0630 [facility] Last Admin: 09/01/24 05:46 Dose: 40 mg Documented By: PETTY Ondansetron HCl (Ondansetron Hcl 4 Mg/2 Ml Vial) 4 mg IVPUSH Q8H PRN PRN Reason: Nausea and Vomiting Prednisone (Prednisone 10 Mg Tablet) 10 mg PO DAILY [facility] Stop: 09/02/24 09:01 Last Admin: 09/01/24 08:11 Dose: 10 mg Documented By: MATTHEW Sodium Chloride (0.9 % Sodium Chloride Flush 3 Ml Syringe) 3 ml IVFLUSH QSHIFT [facility] Last Admin: 09/01/24 08:13 Dose: 3 ml Documented By: MATTHEW Tamsulosin HCl (Tamsulosin Hcl 0.4 Mg Capsule) 0.4 mg PO BEDTIME [facility] Last Admin: 08/31/24 19:54 Dose: 0.4 mg Documented By: PETTY Labs 08/30/24 05:57 08/31/24 05:42 Labs: Laboratory Results - last 24 hr 09/01/24 09:08 Hold Purple Top SEE NOTE Microbiology Microbiology Results: Microbiology 08/28/24 20:08 Blood Culture - Final Blood - Venous Klebsiella pneumoniae Assessment and Plan (1) Sepsis: Status: Acute Plan 79/m HTN, HLD, pulm HTN, h/o gastric ulcer, GERD, CAD, bifasicular block, BPH here with abdominal pain, fever and leukocytosis, elevated LFTS, CT shows dilated CBC but no stone or sludge of thickening of GB Sepsis d/t abdominal source,concern for galbladder process, sepssis resolved, wbc down, no more fever, lfts trending down, likely passed stone Klebsiela bacteremia, 1/2 -Zosyn since admission, change to Ceftriaxone 08/31 -Surgery following - MRCP result pending, called again -US-midly dilated CBD, gallbladder wall thickening -morphine for pain -will need CCY Elevated LFTs, with hyperbilirubin related to above -trendind down -GI co Acute lactic acidosis due to sepsis--resolved HypOkalemia--oral suplement CAD/mixed hyperlipidemia: Continue aspirin and beta-mary ellen. Hold statin d/t elevated lfts Hypertension--BP high -continue Lasix -Increase Coreg to 6.25 bid GERD -PPI BPH - Flomax Skin rash, unknown etiology: -On outpatient methotrexate (stopped per derm recommendation), and prednisone DVT prophylaxis: Lovenox Full code. Discussed with patient at bedside need for inpt: abdominal process sepsis Quality Stroke Does the patient have a stroke diagnosis?: No VTE Prior VTE?: No VTE Risk Level:: Medical - moderate - high VTE Device Contraindication: Treatment Not Indicated VTE Drug Contraindication: N/A - Med Ordered
[2024-09-01 09:24] LABS: MANUAL DIFF FLAG NO
[2024-09-01 09:28] LABS: Basophils Absolute Auto 0.1 X10*3/uL (0.0-0.2); Basophils Percent Auto 0.7 % (0-2); Eosinophils Absolute Auto 0.3 X10*3/uL (0.0-0.4); Eosinophils Percent Auto 3.6 % (0-4); Hematocrit 40.4 % (42.0-52.0); Hemoglobin 14.1 g/dl (14.0-18.0); Imm Gran Abs Auto 0.21 X10*3/uL (0.00-0.03); Imm Gran Pct Auto 2.8 % (0.0-0.4); Lymphocytes Absolute Auto 1.7 X10*3/uL (1.2-4.9); Lymphocytes Percent Auto 22.7 % (20-40); Mean Corpuscular HGB Conc 34.9 g/dl (31.0-36.0); Mean Corpuscular Hemoglobin 31.9 pg (27.0-33.0); Mean Corpuscular Volume 91.4 fL (80.0-98.0); Mean Platelet Volume 10.3 fL (9.4-12.4); Monocytes Absolute Auto 0.4 X10*3/uL (0.1-1.2); Monocytes Percent Auto 5.4 % (2-11); Neutrophils Absolute Auto 4.9 x10*3/uL (2.0-8.3); Neutrophils Percent Auto 64.8 % (45-73); Platelet Count 160 X10*3/uL (160-400); Red Blood Count 4.42 X10*6/uL (4.60-5.80); Red Cell Distribution Width 15.2 % (11.0-16.0); White Blood Count 7.6 X10*3/uL (4.8-10.8)
[2024-09-01 09:29] LABS: Alanine Aminotransferase 90 U/L (0-40); Albumin Level 3.4 g/dL (3.5-5.0); Alkaline Phosphatase 147 U/L (39-117); Aspartate Amino Transferase 37 U/L (5-37); Bilirubin Direct 1.9 mg/dL (0.0-0.5); Bilirubin Total 2.9 mg/dL (0.0-1.0); Total Protein 5.8 g/dL (6.5-8.0)
[2024-09-01 09:42] LABS: Anion Gap 16 (12-20)
[2024-09-01 09:45] LABS: Blood Urea Nitrogen 17 mg/dL (9-16); Calcium 8.5 mg/dL (8.4-10.2); Carbon Dioxide 21 mmol/L (22-29); Chloride 106 mmol/L (96-108); Estimated Glomerular Filt Rate > 60; Glucose Random 130 mg/dL (60-115); Potassium 3.3 mmol/L (3.3-5.1); Sodium 140 mmol/L (135-145)
[2024-09-01] MEDS: cefTRIAXone sodium 2 GM VIAL IVPUSH (10:25)
--- NOTE | 2024-09-01 10:42 | MHC.CM.PN ---
EMR reviewed, pt is not medically cleared for discharge due to management of sepsis.
[2024-09-01 15:37] VITALS: BP 111/63; PULSE 68; RESP 14; TEMP 36.4; O2SAT 95
[2024-09-01 19:12] VITALS: BP 118/77; PULSE 71; RESP 16; TEMP 36.3; O2SAT 95
[2024-09-01] MEDS: Tamsulosin HCL 0.4 MG CAPSULE PO (20:07)
[2024-09-01] MEDS: Enoxaparin Sodium 40 MG/0.4 ML SYRINGE SUBCUT (23:07)
[2024-09-02] VITALS (10 sets, daily range): BP systolic 127–162; BP diastolic 72–88; PULSE 58–71; RESP 16–20; TEMP 36–36.6; O2SAT 96–99
[2024-09-02] MEDS: Omeprazole 40 MG CAPSULE.DR PO (05:58)
[2024-09-02] MEDS: 0.9 % Sodium Chloride Flush 3 ML SYRINGE IVFLUSH ×3 (07:30→19:12)
[2024-09-02] MEDS: carvediloL 6.25 MG TABLET PO (07:36)
[2024-09-02] MEDS: predniSONE 10 MG TABLET PO (07:36)
--- NOTE | 2024-09-02 07:56 | P.PNGS_ITS ---
Subjective Subjective Date of Service: 09/02/24 Interval history: Patient denies nausea, vomiting, or abdominal pain Physical Exam 2 Vital Signs: Vital Signs: Last Vital Signs Temp 97.5 F 09/02/24 07:26 Pulse 70 09/02/24 07:26 Resp 16 09/02/24 07:26 BP 133/77 09/02/24 07:26 Pulse Ox 96 09/02/24 07:26 O2 Del Method Room Air 09/02/24 07:26 O2 Flow Rate 98 08/31/24 03:50 BMI result Body Mass Index 30.6 Const: General: no acute distress Nutritional Appearance: well nourished Orientation/consciousness: patient oriented x3 Limitations: no limitations Eyes: Sclerae: sclerae normal GI: Inspection: Yes normal to inspection Palpation (GI): Soft to palpation, nontender, no guarding and not rigid Skin: Other: no jaundice Neuro: General: patient oriented x3 Objective Data Active Medications Acetaminophen (Acetaminophen 325 Mg Tablet) 650 mg PO Q6H PRN PRN Reason: Pain, Mild (Pain Scale 1-3), fever or headache Aspirin (Aspirin Enteric Coated 81 Mg Tablet.Dr) 81 mg PO DAILY [facility] Last Admin: 09/02/24 07:32 Dose: Not Given Documented By: TAYLOR Non-Admin Reason: NPO Calcium Carbonate (Calcium Carbonate 750 Mg Tab.Chew) 750 mg PO Q4H PRN PRN Reason: Heartburn Last Admin: 08/29/24 08:03 Dose: 750 mg Documented By: WESLEY Carvedilol (Carvedilol 6.25 Mg Tablet) 6.25 mg PO DAILY [facility]; Protocol Last Admin: 09/02/24 07:36 Dose: 6.25 mg Documented By: TAYLOR Ceftriaxone Sodium (Ceftriaxone Sodium 2 Gm Vial) 2 gm IVPUSH Q24H [facility] Last Admin: 09/01/24 10:25 Dose: 2 gm Documented By: MATTHEW Enoxaparin Sodium (Enoxaparin Sodium 40 Mg/0.4 Ml Syringe) 40 mg SUBCUT Q24H [facility] Last Admin: 09/01/24 23:07 Dose: 40 mg Documented By: SHANNAN Folic Acid (Folic Acid 1 Mg Tablet) 1 mg PO SUMOWETHFRSA@0900 [facility] Last Admin: 09/01/24 08:11 Dose: 1 mg Documented By: MATTHEW Furosemide (Furosemide 40 Mg Tablet) 40 mg PO DAILY [facility]; Protocol Last Admin: 09/02/24 07:33 Dose: Not Given Documented By: TAYLOR Non-Admin Reason: Patient Refused Magnesium Hydroxide (Milk Of Magnesia 30 Ml Oral.Susp) 30 ml PO DAILY PRN PRN Reason: Constipation Melatonin (Melatonin 3 Mg Tablet) 6 mg PO BEDTIME PRN PRN Reason: Insomnia Omeprazole (Omeprazole 40 Mg Capsule.Dr) 40 mg PO DAILY@0630 [facility] Last Admin: 09/02/24 05:58 Dose: 40 mg Documented By: JOSEPH Ondansetron HCl (Ondansetron Hcl 4 Mg/2 Ml Vial) 4 mg IVPUSH Q8H PRN PRN Reason: Nausea and Vomiting Prednisone (Prednisone 10 Mg Tablet) 10 mg PO DAILY [facility] Stop: 09/02/24 09:01 Last Admin: 09/02/24 07:36 Dose: 10 mg Documented By: TAYLOR Sodium Chloride (0.9 % Sodium Chloride Flush 3 Ml Syringe) 3 ml IVFLUSH QSHIFT [facility] Last Admin: 09/02/24 07:30 Dose: 3 ml Documented By: TAYLOR Tamsulosin HCl (Tamsulosin Hcl 0.4 Mg Capsule) 0.4 mg PO BEDTIME [facility] Last Admin: 09/01/24 20:07 Dose: 0.4 mg Documented By: TUMASY Labs 09/01/24 09:08 09/01/24 09:08 Labs: Laboratory Results - last 24 hr 09/01/24 09:08 MCV 91.4 MCH 31.9 MCHC 34.9 RDW 15.2 Plt Count 160 MPV 10.3 Immature Gran % (Auto) 2.8 H Neut % (Auto) 64.8 Lymph % (Auto) 22.7 [place] % (Auto) 5.4 Eos % (Auto) 3.6 Baso % (Auto) 0.7 Lymph # (Auto) 1.7 [place] # (Auto) 0.4 Eos # (Auto) 0.3 Baso # (Auto) 0.1 Abs Immat Gran (auto) 0.21 H Absolute Neuts (auto) 4.9 Absolute Nucleated RBC 0.000 Nucleated RBC % (auto) 0.0 Hold Purple Top SEE NOTE Anion Gap 16 Estim Creat Clear Calc 71.0 Estimated GFR > 60 Random Glucose 130 H Calcium 8.5 Total Bilirubin 2.9 H Direct Bilirubin 1.9 H AST 37 ALT 90 H Alkaline Phosphatase 147 H Total Protein 5.8 L Albumin 3.4 L MR/MR MRCP IMPRESSION: Hydropic gallbladder with wall thickening and intramural edema, nonspecific could represent acute acalculus cholecystitis in the appropriate clinical context. Moderate extrahepatic and trace intrahepatic biliary ductal dilatation. The CBD measures up to 1.3 cm in diameter with a few T2 hypointense intraluminal filling defects situated centrally and anteriorly/anti-dependent that could represent flow void artifacts, although debris/stones cannot be excluded. Further evaluation with ERCP as clinically warranted. No discrete fixed luminal narrowing or abrupt transition point within the biliary tree. No discrete extraluminal compression abnormality. Electronically signed by: Olga Freire MD 09/01/2024 02:57 PM EDT RP Procedures Date of Service Date of Service: 09/02/24 Progress Note: A&P Assessment and plan (1) Elevated LFTs: Status: Acute (2) Dilated cbd, acquired: Status: Acute (3) Jaundice: Status: Acute (4) Sepsis: Status: Acute Plan 79 year old male patient found to have sepsis, jaundice, dilated CBD and thickened gallbladder. LFTs are now improving suggestive of a passed gallstone. I reviewed the findings with the patient and his daughter (Nancy-by phone) and suggested proceeding to laparoscopic or possible open cholecystectomy. After a discussion of the procedure, alternatives and risks, he consents to the surgery. He has been added on to the OR schedule for today. I will add an intraoperative cholangiogram to evaluate for any retained CBD stones/obstruction. Time Spent With Patient Time: Total time managing care of this patient today ____ minutes. Quality Stroke Does the patient have a stroke diagnosis?: No VTE Prior VTE?: No VTE Risk Level:: Medical - moderate - high VTE Device Contraindication: Treatment Not Indicated VTE Drug Contraindication: N/A - Med Ordered
[2024-09-02] MEDS: cefTRIAXone sodium 2 GM VIAL IVPUSH (10:22)
--- NOTE | 2024-09-02 10:35 | P.PNIM_ITS ---
Subjective Subjective Date of Service: 09/02/24 Interval History: follow-up on acute cholecystitis, gram-negative nuria bacteremia. He is doing better, no pain at the moment. LFTs are trending down. Physical Exam 2 Vital Signs: Vital Signs: Last Vital Signs Temp 97.5 F 09/02/24 07:26 Pulse 70 09/02/24 07:26 Resp 16 09/02/24 07:26 BP 133/77 09/02/24 07:26 Pulse Ox 96 09/02/24 07:26 O2 Del Method Room Air 09/02/24 07:26 O2 Flow Rate 98 08/31/24 03:50 BMI result Body Mass Index 30.6 Const: Other: General: AO X 3, no acute distress Resp: CTA bilateral CVS: S1,S2,RRR. 1+ leg edam GI: +BS, NT, no distention Skin: No rash Neuro: motor grossly intact Psych: appropriate affect Objective Data Active Medications Acetaminophen (Acetaminophen 325 Mg Tablet) 650 mg PO Q6H PRN PRN Reason: Pain, Mild (Pain Scale 1-3), fever or headache Aspirin (Aspirin Enteric Coated 81 Mg Tablet.) 81 mg PO DAILY [facility] Last Admin: 09/02/24 07:32 Dose: Not Given Documented By: TAYLOR Non-Admin Reason: NPO Calcium Carbonate (Calcium Carbonate 750 Mg Tab.Chew) 750 mg PO Q4H PRN PRN Reason: Heartburn Last Admin: 08/29/24 08:03 Dose: 750 mg Documented By: WESLEY Carvedilol (Carvedilol 6.25 Mg Tablet) 6.25 mg PO DAILY [facility]; Protocol Last Admin: 09/02/24 07:36 Dose: 6.25 mg Documented By: TAYLOR Ceftriaxone Sodium (Ceftriaxone Sodium 2 Gm Vial) 2 gm IVPUSH Q24H [facility] Last Admin: 09/02/24 10:22 Dose: 2 gm Documented By: TAYLOR Enoxaparin Sodium (Enoxaparin Sodium 40 Mg/0.4 Ml Syringe) 40 mg SUBCUT Q24H [facility] Last Admin: 09/01/24 23:07 Dose: 40 mg Documented By: SHANNAN Folic Acid (Folic Acid 1 Mg Tablet) 1 mg PO SUMOWETHFRSA@0900 [facility] Last Admin: 09/01/24 08:11 Dose: 1 mg Documented By: MATTHEW Furosemide (Furosemide 40 Mg Tablet) 40 mg PO DAILY [facility]; Protocol Last Admin: 09/02/24 07:33 Dose: Not Given Documented By: TAYLOR Non-Admin Reason: Patient Refused Magnesium Hydroxide (Milk Of Magnesia 30 Ml Oral.Susp) 30 ml PO DAILY PRN PRN Reason: Constipation Melatonin (Melatonin 3 Mg Tablet) 6 mg PO BEDTIME PRN PRN Reason: Insomnia Omeprazole (Omeprazole 40 Mg Capsule.) 40 mg PO DAILY@0630 [facility] Last Admin: 09/02/24 05:58 Dose: 40 mg Documented By: JOSEPH Ondansetron HCl (Ondansetron Hcl 4 Mg/2 Ml Vial) 4 mg IVPUSH Q8H PRN PRN Reason: Nausea and Vomiting Sodium Chloride (0.9 % Sodium Chloride Flush 3 Ml Syringe) 3 ml IVFLUSH QSHIFT [facility] Last Admin: 09/02/24 07:30 Dose: 3 ml Documented By: TAYLOR Tamsulosin HCl (Tamsulosin Hcl 0.4 Mg Capsule) 0.4 mg PO BEDTIME [facility] Last Admin: 09/01/24 20:07 Dose: 0.4 mg Documented By: TUMASY Labs 09/01/24 09:08 09/01/24 09:08 Assessment and Plan (1) Sepsis: Status: Acute Plan 79/m HTN, HLD, pulm HTN, h/o gastric ulcer, GERD, CAD, bifasicular block, BPH here with abdominal pain, fever and leukocytosis, elevated LFTS, CT shows dilated CBC but no stone or sludge of thickening of GB Sepsis d/t abdominal source, concern for gallbladder process, sepsis resolved, wbc down, no more fever, lfts trending down, likely passed stone Klebsiela bacteremia, 1/2 -Zosyn since admission, change to Ceftriaxone 08/31 - MRCP suggest acalculus cholecystitis, CBD 1.3 cm -US-midly dilated CBD, gallbladder wall thickening -morphine for pain - For cholecystectomy today Elevated LFTs, with hyperbilirubin related to above -trendind down - GI following Acute lactic acidosis due to sepsis--resolved HypOkalemia--oral suplement CAD/mixed hyperlipidemia: Continue aspirin and beta-mary ellen. Hold statin d/t elevated lfts Hypertension--BP high -continue Lasix -Increase Coreg to 6.25 bid GERD -PPI BPH - Flomax Skin rash, unknown etiology: -On outpatient methotrexate (stopped per derm recommendation), and prednisone DVT prophylaxis: Lovenox Full code. Discussed with patient at bedside need for inpt: abdominal process sepsis Quality Stroke Does the patient have a stroke diagnosis?: No VTE Prior VTE?: No VTE Risk Level:: Medical - moderate - high VTE Device Contraindication: Treatment Not Indicated VTE Drug Contraindication: N/A - Med Ordered
[2024-09-02 11:56] LABS: Alanine Aminotransferase 114 U/L (0-40); Albumin Level 3.4 g/dL (3.5-5.0); Alkaline Phosphatase 134 U/L (39-117); Anion Gap 10 (12-20); Aspartate Amino Transferase 72 U/L (5-37); Bilirubin Direct 1.2 mg/dL (0.0-0.5); Bilirubin Total 1.9 mg/dL (0.0-1.0); Blood Urea Nitrogen 22 mg/dL (9-16); Carbon Dioxide 29 mmol/L (22-29); Chloride 105 mmol/L (96-108); Creatinine Clr Calc Pharmacy 63.2; Estimated Glomerular Filt Rate > 60; Glucose Random 106 mg/dL (60-115); Potassium 4.4 mmol/L (3.3-5.1); Sodium 140 mmol/L (135-145)
--- NOTE | 2024-09-02 12:33 | PC.NURSE ---
left 20g ac iv bent and not working. removed.
--- NOTE | 2024-09-02 14:49 | W.PM.OPN ---
Operative Note Operative Note Date of Service: 09/02/24 Narrative: Preoperative diagnosis: Acute cholecystitis, choledocholithiasis Postoperative diagnosis: Same Procedure: Laparoscopic cholecystectomy Surgeon: Iglesia Rosenberg MD Data Network Architect: PRIYANK Burt Anesthesia: General endotracheal Indications for procedure: 79-year-old male patient presenting with epigastric abdominal pain found to have elevated liver function tests and workup suggestive of a passed biliary stone. He presents today for laparoscopic or possible open cholecystectomy. Operative findings: Large distended gallbladder without adhesions or apparent gallstones Specimen: gallbladder Estimated blood loss: 5 mL Complications: None Procedure details: Patient was brought to the OR and placed in a supine position. After administering general anesthesia the patient's abdomen was prepped with ChloraPrep and draped in a sterile fashion. A surgical time-out was called the consent confirmed. Patient received preoperative antibiotics and Venodyne boots were in place. Local anesthesia consisting of 0.5% Sensorcaine without epinephrine was infiltrated in a periumbilical region. A 5 mm incision was made above the umbilicus in a transverse fashion. The Veress needle was then inserted while elevating abdominal cavity with towel clips. After positive drop test the abdomen was insufflated to a pressure of 15 mm of mercury. The Veress needle was then removed and a 5 mm trocar inserted. The camera was inserted in the abdomen explored. A 12 mm trocar was then placed in the epigastrium. Two 5 mm trocars placed in the right upper quadrant by the oncology physician assistant. The patient was placed in reverse Trendelenburg positioning and rotated to the left. The gallbladder was grasped with the fundus and retracted cephalad by the oncology physician assistant. The infundibulum was then grasped and retracted away from the liver bed, also by the oncology physician assistant. The Dolphin dissected was then used by the surgeon to dissect the peritoneum off the infundibulum to reveal the junction with the cystic duct. Cystic artery was noted slightly medial and posterior to the cystic duct. After obtaining a critical view the cystic duct was doubly clipped and divided. The cystic artery was then doubly clipped and divided. The gallbladder was then dissected off the liver bed using electrocautery with an L hook. Hemostasis was assured all times using the electrocautery. When the gallbladder is completely dissected off the liver bed was placed in an Endo-Catch bag and brought out through the epigastric incision. The gallbladder was sent to pathology for further examination. The abdomen was then re-examined. The liver bed was irrigated and suctioned dry. No bleeding or bile leak could be identified. CO2 was then evacuated and all trocars removed. Fascia was closed at the epigastric incision using a [id number] 0 Polysorb suture. Skin was closed in all incisions using a subcuticular 4 0 Polysorb suture by both the surgeon and oncology physician assistant. Sterile dressings consisting of Steri-Strips, 2 x 2 gauze, and Tegaderm were then applied. The patient tolerated the procedure well. Sponge instrument and needle counts reported as correct. The patient was transferred to PACU in stable condition.
[2024-09-02] MEDS: Tamsulosin HCL 0.4 MG CAPSULE PO (19:12)
[2024-09-02] MEDS: Enoxaparin Sodium 40 MG/0.4 ML SYRINGE SUBCUT (23:27)
[2024-09-02] MEDS: Acetaminophen 325 MG TABLET 650 MG PO (23:31)
[2024-09-03 03:33] VITALS: BP 156/84; PULSE 79; RESP 18; TEMP 36.3; O2SAT 95
[2024-09-03] MEDS: Omeprazole 40 MG CAPSULE.DR PO (05:57)
--- NOTE | 2024-09-03 06:55 | HO.STUDENTPN ---
Subjective Subjective Date of Service: 09/03/24 <Amber Bertrand - Last Filed: 09/03/24 07:11> 09/03/24 <Devora Rivas PA-C - Last Filed: 09/03/24 08:07> 09/03/24 <Iglesia Rosenberg MD - Last Filed: 09/03/24 08:19> Interval History: He states that he is doing well, reports 3/10 pain localized to midline incision, worsens with bending movement. Able to tolerate regular diet. Passing flatus, no bowel movement for 2 days. Otherwise feeling comfortable. Denies any other concerns at this time. <Amberkenneth Bertrand - Last Filed: 09/03/24 07:11> Review of Systems Reviewed, pertinent positives as stated in HPI. <Ambertevin Bertrand - Last Filed: 09/03/24 07:11> Physical Exam Vital Signs: Vital Signs: Last Vital Signs Temp 97.3 F 09/03/24 03:33 Pulse 79 09/03/24 03:33 Resp 18 09/03/24 03:33 BP 156/84 H 09/03/24 03:33 Pulse Ox 95 09/03/24 03:33 O2 Del Method Room Air 09/03/24 03:33 O2 Flow Rate 2 09/02/24 15:46 Oxygen Flow Rate 2 09/02/24 15:06 BMI result Body Mass Index 30.6 <Amberkenneth Bertrand - Last Filed: 09/03/24 07:11> Const: Other: General: AO X 3, no acute distress Resp: Good respiratory effort, lungs clear to auscultation bilateral. No adventitious lung sounds. CV: normal S1,S2 with regular, rate and rhythm. stable bilateral leg edema GI: large pannus, +BS, no distention, non tender to palpation. Dry dressings with tegaderm applied to laparoscopic incision sites. Scant dried blood surrounding midline bandage. Neuro: motor grossly intact Psych: appropriate affect and mood <Amber Bertrand - Last Filed: 09/03/24 07:11> General: cooperative, comfortable and no acute distress <Amber Bertrand - Last Filed: 09/03/24 07:11> Nutritional Appearance: well nourished <Amber Montcalm - Last Filed: 09/03/24 07:11> Orientation/consciousness: patient oriented x3 <Amber Montcalm - Last Filed: 09/03/24 07:11> Limitations: no limitations and No language barrier <Amber Montcalm - Last Filed: 09/03/24 07:11> HEENT: Head: Yes normocephalic and Yes atraumatic <Amber Montcalm - Last Filed: 09/03/24 07:11> Ears: hearing grossly normal bilaterally <Amber Montcalm - Last Filed: 09/03/24 07:11> Eyes: Sclerae: sclerae normal and scleral abnormal (Bilateral scleral icterus) <Amber Montcalm - Last Filed: 09/03/24 07:11> Resp: Effort & Inspection: normal respiratory effort, no audible wheezes, no cough and no respiratory distress <Amber Montcalm - Last Filed: 09/03/24 07:11> Cardio: Other: Normal peripheral perfusion <Amber Montcalm - Last Filed: 09/03/24 07:11> Jugular venous distension: no JVD <Amber Montcalm - Last Filed: 09/03/24 07:11> GI: Other: Negative Cedeno sign <Amberkenneth Bertrand - Last Filed: 09/03/24 07:11> Other: incision sites with clean and intact dressing, mild incisional tenderness at epigastric port site <Devora Rivas PA-C - Last Filed: 09/03/24 08:07> Inspection: Yes normal to inspection <Amber Montcalm - Last Filed: 09/03/24 07:11> Palpation (GI): Soft to palpation, nontender, no guarding, not rigid and No hepatosplenomegaly present <Amber Montcalm - Last Filed: 09/03/24 07:11> Percussion: Yes normal to percussion <Amber Montcalm - Last Filed: 09/03/24 07:11> Auscultation: normal bowel sounds <Amber Montcalm - Last Filed: 09/03/24 07:11> Rectal Exam - Male: Yes deferred <Amber Bertrand - Last Filed: 09/03/24 07:11> Skin: Other: no jaundice <Ambertevin Bertrand - Last Filed: 09/03/24 07:11> Neuro: General: patient oriented x3, no focal motor deficits and CN's II-XI intact bilaterally <Amber Montcalm - Last Filed: 09/03/24 07:11> Extrem: General: Yes no clubbing, cyanosis or edema <Amber Montcalm - Last Filed: 09/03/24 07:11> Psych: Other: Calm cooperative <Amber Montcalm - Last Filed: 09/03/24 07:11> Objective Data Active Medications Acetaminophen (Acetaminophen 325 Mg Tablet) 650 mg PO Q6H PRN PRN Reason: Pain, Mild (Pain Scale 1-3), fever or headache Last Admin: 09/02/24 23:31 Dose: 650 mg Documented By: JOSEPH Aspirin (Aspirin Enteric Coated 81 Mg Tablet.Dr) 81 mg PO DAILY [facility] Last Admin: 09/02/24 07:32 Dose: Not Given Documented By: TAYLOR Non-Admin Reason: NPO Calcium Carbonate (Calcium Carbonate 750 Mg Tab.Chew) 750 mg PO Q4H PRN PRN Reason: Heartburn Last Admin: 08/29/24 08:03 Dose: 750 mg Documented By: WESLEY Carvedilol (Carvedilol 6.25 Mg Tablet) 6.25 mg PO DAILY [facility]; Protocol Last Admin: 09/02/24 07:36 Dose: 6.25 mg Documented By: TAYLOR Ceftriaxone Sodium (Ceftriaxone Sodium 2 Gm Vial) 2 gm IVPUSH Q24H [facility] Last Admin: 09/02/24 10:22 Dose: 2 gm Documented By: TAYLOR Enoxaparin Sodium (Enoxaparin Sodium 40 Mg/0.4 Ml Syringe) 40 mg SUBCUT Q24H [facility] Last Admin: 09/02/24 23:27 Dose: 40 mg Documented By: JOSEPH Folic Acid (Folic Acid 1 Mg Tablet) 1 mg PO SUMOWETHFRSA@0900 [facility] Last Admin: 09/01/24 08:11 Dose: 1 mg Documented By: HO.GRAZIC Furosemide (Furosemide 40 Mg Tablet) 40 mg PO DAILY [facility]; Protocol Last Admin: 09/02/24 07:33 Dose: Not Given Documented By: TAYLOR Non-Admin Reason: Patient Refused Hydromorphone HCl (Hydromorphone Hcl 0.5 Mg/0.5 Ml Syringe) 0.5 mg IVPUSH Q3H PRN; Protocol PRN Reason: Pain, Severe (Pain Scale 7-10) Magnesium Hydroxide (Milk Of Magnesia 30 Ml Oral.Susp) 30 ml PO DAILY PRN PRN Reason: Constipation Melatonin (Melatonin 3 Mg Tablet) 6 mg PO BEDTIME PRN PRN Reason: Insomnia Naloxone HCl (Naloxone Hcl 0.4 Mg/Ml Vial) 0.04 mg IVPUSH Q5M PRN PRN Reason: Excessive sedation or RR < 8 Omeprazole (Omeprazole 40 Mg Capsule.Dr) 40 mg PO DAILY@0630 [facility] Last Admin: 09/03/24 05:57 Dose: 40 mg Documented By: JOSEPH Ondansetron HCl (Ondansetron Hcl 4 Mg/2 Ml Vial) 4 mg IVPUSH Q8H PRN PRN Reason: Nausea and Vomiting Oxycodone HCl (Oxycodone Hcl Immed Release 5 Mg Tablet) 5 mg PO Q6H PRN PRN Reason: Pain, Moderate(Pain Scale 4-6) Sodium Chloride (0.9 % Sodium Chloride Flush 3 Ml Syringe) 3 ml IVFLUSH QSHIFT [facility] Last Admin: 09/02/24 19:12 Dose: 3 ml Documented By: JOSEPH Tamsulosin HCl (Tamsulosin Hcl 0.4 Mg Capsule) 0.4 mg PO BEDTIME [facility] Last Admin: 09/02/24 19:12 Dose: 0.4 mg Documented By: JOSEPH <Amber Bertrand - Last Filed: 09/03/24 07:11> Labs CBC & Chem 7: 09/01/24 09:08 09/02/24 11:10 <Amber Bertrand - Last Filed: 09/03/24 07:11> Labs: Laboratory Results - last 24 hr 09/02/24 11:10 Anion Gap 10 L Estim Creat Clear Calc 63.2 Estimated GFR > 60 Random Glucose 106 Calcium 9.0 Total Bilirubin 1.9 H Direct Bilirubin 1.2 H AST 72 H ALT 114 H Alkaline Phosphatase 134 H Total Protein 6.0 L Albumin 3.4 L <Amber Montcalm - Last Filed: 09/03/24 07:11> Microbiology Microbiology Results: Microbiology 08/28/24 21:26 Blood Culture - Final Blood - Venous No growth after 5 days. <Amber Montcalm - Last Filed: 09/03/24 07:11> Assessment and Plan (1) Elevated LFTs: Status: Acute <Amber Montcalm - Last Filed: 09/03/24 07:11> Assessment and Plan: Mr. Yarbrough is 79 year old POD1 s/p cholecystectomy. Initially admitted on 08/28, CT revealed dilated CBC but no stone or sludge of thickening of GB. He was brought to the OR on 09/02 after resolution of sepsis, likely passed stone. Sepsis thought to be with underlying abdominal source and concern with gallbladder process. Initial course complicated with sepsis involving increased WBC, fever, increased LFTs. WBC remains stable and patient is afebrile. LFTs increased from baseline but improved from initial prevention. Patient is comfortable, reporting occasional pain that occurs with bending. Able to tolerate regular diet and reports ambulation. Awaiting bowel movement. Encouraged incentive spirometry. <Devora Rivas PA-C - Last Filed: 09/03/24 08:07> Assessment and Plan: Mr. Yarbrough is 79 year old POD1 s/p cholecystectomy for acute cholecystitis. Initially admitted on 08/28, CT revealed dilated CBC but no stone or sludge of thickening of GB. He was brought to the OR on 09/02 after resolution of sepsis, likely passed stone. Sepsis thought to be with underlying abdominal source and concern with gallbladder process. Initial course complicated with sepsis involving increased WBC, fever, increased LFTs. WBC remains stable and patient is afebrile. LFTs increased from baseline but improved from initial prevention. Patient is comfortable, reporting occasional pain that occurs with bending. Able to tolerate regular diet and reports ambulation. Awaiting bowel movement. Encouraged incentive spirometry. <Amber Montcalm - Last Filed: 09/03/24 07:11> Patient POD #1 s/p laparoscopic cholecystectomy for choledocolithiasis with likely passed stone. Patient doing well post op, tolerating solid diet with good pain control. OOB and ambulating. VSS. Abd exam benign with clean and intact dressings. Feels ready for discharge. Stable for dc from surgical perspective. F/u in office in [address] Rosenberg. <Devora Rivas PA-C - Last Filed: 09/03/24 08:07> Quality Stroke Does the patient have a stroke diagnosis?: No <Amber Bertrand - Last Filed: 09/03/24 07:11> VTE Prior VTE?: No <Amber Bertrand - Last Filed: 09/03/24 07:11> VTE Risk Level:: Medical - moderate - high <Amber Bertrand - Last Filed: 09/03/24 07:11> VTE Device Contraindication: Treatment Not Indicated <Amber Bertrand - Last Filed: 09/03/24 07:11> VTE Drug Contraindication: N/A - Med Ordered <Amber Bertrand - Last Filed: 09/03/24 07:11>
[2024-09-03 07:08] VITALS: BP 154/87; PULSE 71; RESP 16; TEMP 36.3; O2SAT 97
[2024-09-03] MEDS: Aspirin Enteric Coated 81 MG TABLET.DR PO (07:17)
[2024-09-03] MEDS: carvediloL 6.25 MG TABLET PO (07:18)
[2024-09-03] MEDS: Folic Acid 1 MG TABLET PO (07:18)
[2024-09-03] MEDS: Furosemide 40 MG TABLET PO (07:18)
[2024-09-03] MEDS: 0.9 % Sodium Chloride Flush 3 ML SYRINGE IVFLUSH (07:18)
[2024-09-03 09:04] LABS: Hematocrit 42.1 % (42.0-52.0); Hemoglobin 14.1 g/dl (14.0-18.0); Mean Corpuscular HGB Conc 33.5 g/dl (31.0-36.0); Mean Corpuscular Hemoglobin 31.7 pg (27.0-33.0); Mean Corpuscular Volume 94.6 fL (80.0-98.0); Platelet Count 187 X10*3/uL (160-400); Red Blood Count 4.45 X10*6/uL (4.60-5.80); Red Cell Distribution Width 15.3 % (11.0-16.0); White Blood Count 8.4 X10*3/uL (4.8-10.8)
[2024-09-03 09:30] LABS: Alanine Aminotransferase 119 U/L (0-40); Albumin Level 3.7 g/dL (3.5-5.0); Alkaline Phosphatase 133 U/L (39-117); Anion Gap 13 (12-20); Aspartate Amino Transferase 60 U/L (5-37); Bilirubin Direct 1.2 mg/dL (0.0-0.5); Blood Urea Nitrogen 18 mg/dL (9-16); Carbon Dioxide 28 mmol/L (22-29); Chloride 103 mmol/L (96-108); Creatinine Clr Calc Pharmacy 64.4; Estimated Glomerular Filt Rate > 60; Glucose Random 91 mg/dL (60-115); Sodium 140 mmol/L (135-145); Total Protein 6.4 g/dL (6.5-8.0)
[2024-09-03] MEDS: cefTRIAXone sodium 2 GM VIAL IVPUSH (10:14)
--- NOTE | 2024-09-03 10:20 | PM.DS ---
DS: Providers Provider Date of Service: 09/03/24 Date of admission: 08/28/24 23:39 Date of discharge: 09/03/24 Primary care physician: Irving Valentin MD Consults: 08/29/24 07:43 Consult to General Surgery Routine Consulting Provider: [facility] [place] General Surgeons Reason for consultation: Fever and ruq pain, dilated gallblader Has provider been notified: No 08/31/24 08:09 Consult to Gastroenterology Routine Consulting Provider: Edwige Roth Reason for consultation: Painless jaundice, dilated CBD DS: Diagnosis Discharge Diagnosis (1) Elevated LFTs: Status: Acute DS: Summary Hospital Course Hospital Course: Chief Complaint: Abd pain This is a 79-year-old male with pertinent history of hypertension, mixed hyperlipidemia, pulmonary hypertension, history of gastric ulcer with gastroesophageal reflux disease, CAD, bifascicular block, BPH, skin rash of unknown etiology presents to the emergency department for evaluation of abdominal pain and fever. Patient reports upper abdominal discomfort associated with nausea. Also was having symptoms of gastroesophageal reflux disease. He called his daughter who is a nurse. Patient was feeling warm and had a temperature of 100.4 degrees. Had associated chills. Also has been having weakness, fatigue and decreased p.o. intake. No vomiting, diarrhea. Patient denies chest discomfort, cough, changes in urinary habits. In the emergency department, white count and lactic acid found to be elevated. Also had raised transaminases Hospital course: Acute acalculous cholecystitis 79-year-old male with a history of hypertension (HTN), hyperlipidemia (HLD), pulmonary hypertension, gastric ulcer, GERD, coronary artery disease (CAD), bifascicular block, and benign prostatic hyperplasia (BPH), presented with abdominal pain, fever, leukocytosis, and elevated liver function tests (LFTs). A CT scan showed a dilated common bile duct (CBD) without stones or sludge, and no gallbladder thickening. An ultrasound revealed a mildly dilated CBD and gallbladder wall thickening. MRCP was suggestive of acalculous cholecystitis with a CBD measuring 1.3 cm. Blood cultures grew Klebsiella, and he has been treated for acute cholecystitis with Zosyn, resulting in rapid pain resolution. His elevated LFTs have trended down, indicating the possibility of a passed stone. He underwent a cholecystectomy on 10/03/[address] Mcmanus, and is recovering well postoperatively, with no pain and tolerating a regular diet. He will be discharged home to complete 14 days of antibiotics, with Ceftin prescribed at discharge. Elevated LFTs, with hyperbilirubin related to above and trending down, Tbili was a high as 8 and is down to 2 now, AST and ALT continue to trend down as well Acute lactic acidosis due to sepsis--resolved HypOkalemia--oral suplement CAD/mixed hyperlipidemia: Continue aspirin and beta-mary ellen. Hold statin d/t elevated lfts, repeat labs in a week Hypertension--BP high -continue Lasix -Increase Coreg to 6.25 bid GERD -PPI BPH - Flomax Skin rash, unknown etiology: -On outpatient methotrexate (stopped per derm recommendation), and to finish presndione Time Attestation Discharge Coordination Time (in mins): 40 Quality: Safe Use of Opioids Does Pt have an Active Cancer Diagnosis on the Problem List?: No Quality: Stroke Does the patient have a stroke diagnosis?: No Physical Exam Vital Signs: Vital Signs: Last Vital Signs Temp 97.4 F 09/03/24 07:08 Pulse 71 09/03/24 07:08 Resp 16 09/03/24 07:08 BP 154/87 H 09/03/24 07:08 Pulse Ox 97 09/03/24 07:08 O2 Del Method Room Air 09/03/24 07:08 O2 Flow Rate 2 09/02/24 15:46 Oxygen Flow Rate 2 09/02/24 15:06 BMI result Body Mass Index 30.6 Const: Other: General: AO X 3, no acute distress Resp: CTA bilateral CVS: S1,S2,RRR GI: +BS, NT, no distention Skin: No rash Neuro: motor grossly intact Psych: appropriate affect DS: Data Data Completed and Pending Pending studies at discharge: Pending at discharge 09/02/24 14:27 Surgical [PTH] Routine Labs on day of discharge: Laboratory Results - last 24 hr 09/02/24 09/03/24 11:10 08:25 WBC 8.4 RBC 4.45 L Hgb 14.1 Hct 42.1 MCV 94.6 MCH 31.7 MCHC 33.5 RDW 15.3 Plt Count 187 MPV 10.0 Absolute Nucleated RBC 0.000 Nucleated RBC % (auto) 0.0 Sodium 140 140 Potassium 4.4 D 4.0 Chloride 105 103 Carbon Dioxide 29 28 Anion Gap 10 L 13 BUN 22 H 18 H Creatinine 1.10 1.08 Estim Creat Clear Calc 63.2 64.4 Estimated GFR > 60 > 60 Random Glucose 106 91 Calcium 9.0 9.0 Total Bilirubin 1.9 H 2.0 H Direct Bilirubin 1.2 H 1.2 H AST 72 H 60 H ALT 114 H 119 H Alkaline Phosphatase 134 H 133 H Total Protein 6.0 L 6.4 L Albumin 3.4 L 3.7 Discharge Plan Discharge Anticipated Discharge Date/Time: 09/03/24 10:17 Patient Disposition: Home Health Service Discharge Diagnosis: Acute cholecystitis, sepsis, jaundice Referrals: Irving Valentin MD [Primary Care Provider] - 1 Week Iglesia Rosenberg MD [Physician] - 1 Week Discharge Medications: New cefuroxime axetil 500 mg tablet 500 mg PO BID 7 Days Qty: 14 0RF Rx Instructions: next 09/04 morning Continued (DME) Walker See Rx Instructions .Route .MEDSUPPLY Qty: 1 0RF Rx Instructions: As directed (DME) Shower chair See Rx Instructions .Route .MEDSUPPLY Qty: 1 0RF Rx Instructions: As directed furosemide 40 mg tablet 40 mg PO DAILY 90 Days Qty: 90 1RF prednisone 10 mg tablet 10 mg PO DAILY Taper: Prednisone 40 mg daily for 5 Days and 0 Hour 30 mg daily for 5 Days and 0 Hour 20 mg daily for 5 Days and 0 Hour 10 mg daily for 5 Days and 0 Hour Rx Instructions: PATIENT ON LAST 5 DAYS OF TAPER - 10 MG DAILY X 5 DAYS ( 08/29/24-09/02/24) methotrexate sodium 2.5 mg tablet 15 mg PO TU@0900 folic acid 1 mg Tablet 1 mg PO SUMOWETHFRSA@0900 carvedilol [Coreg] 3.125 mg tablet 3.125 mg PO DAILY Rx Instructions: must administer with a meal/food tamsulosin 0.4 mg capsule 0.4 mg PO BEDTIME aspirin 81 mg tablet,delayed release (DR/EC) 81 mg PO DAILY diphenhydramine-acetaminophen [Tylenol PM Extra Strength] 25-500 mg tablet 1 tab PO BEDTIME PRN (Reason: Pain) (DME) CPAP Machine/Device Device See Rx Instructions .Route Rx Instructions: As directed omeprazole 40 mg capsule,delayed release(DR/EC) 40 mg PO DAILY@0630 Discharge Orders: Discharge Order (Routine); Ordered 09/03/24 Ordered By: Hector Evans Diet: Advance to usual diet Activity on Discharge: As tolerated Stand Alone Forms: Patient Portal Discharge page Print Language: Amharic Other Ambulatory Orders: Liver Panel (Routine) Timeframe: 1 Week Facility: [facility] - Location: Laboratory Ordered By: Hector Evans Activity Restrictions/Additional Instructions: If the incision area is tender, you may apply an ice pack for short intervals (No more than 20 minutes on, followed by at least 20 minutes off). Do not apply heat. Do not use creams, lotions, or topical antibiotics. Ok to shower. Remove clear dressings 3 days following your procedure. You have steri strips (small white cloth strips) covering your incision- these will fall off ~1 week. No heavy lifting (>10lbs) or strenuous activity! Take Tylenol Extra-strength 1-2 tabs every 6 hours for the first day, then as needed. Oxycodone every 6-8 hours as needed for pain. Colace 100 mg every day as needed for constipation. Follow up in office with Dr. Rosenberg in 1 week. ([phone]) Call Your Doctor If: -Your temperature exceeds 101.5? F -You experience excessive pain or swelling -You have an unexpected reaction to medication -You have excessive bleeding -You experience continued vomiting/nausea -Your incision begins to separate -Your incision shows signs of infection such as increased redness, swelling, excessive pain, drainage (light blood or clear fluid is normal) or heat - take Augmentin to complete treatment for sepsis - follow-up with your primary care doctor and Dr. Rosenberg Care Plan Goals: full recovery from cholecystitis, sepsis Health Concerns: cholecystitis sepsis Iglesia elevated LFT Plan of Treatment: see above Assessment: see above Patient Instructions: Sepsis (GEN), MRCP (Magnetic Resonance Cholangiopancreatography) (GEN)
--- NOTE | 2024-09-03 10:36 | MHC.CM.PN ---
pt dcd home self care
--- NOTE | 2024-09-03 10:46 | W.MHC.F2F ---
Service Date Service Date: 09/03/24 Encounter Date of encounter: 09/03/24 Reasons for Services Signs and symptoms assessed: acute cholecystititis, sepsis and needing gallbladder surgery Reason for custodial: medication management and teach disease management Homebound: Leaving the home is medically contraindicated at this time without the asist of a device and/or another person due th the listed conditions above and below. Reason homebound: unsteady gait / fall risk, fall risk related to blood pressure changes and weakness related to hospital stay Homebound supporting statement: homebound due to sepsis d/t cholecystitis, and needing surgery, post hospitalization weakness and need for another person's help Certification: Based on the above findings, I certify that this patient is confined to the home and needs intermittent custodial care, physical therapy and/or speech therapy, or continues to need occupational therapy. The patient is under my care, and I have initiated the establishment of the plan of care. The patient will be followed by a physician who will periodically review the plan of care. Time Spent With Patient Time: Total time managing care of this patient today ____ minutes.
--- NOTE | 2024-09-03 10:54 | MHC.CM.PN ---
pt now going home with allison
--- NOTE | 2024-09-03 13:47 | HO.POSTANES ---
Post Anesthesia Evaluation Post Anesthesia Evaluation Date of Service: 09/02/24 Vital Signs: Vital Signs Temp Pulse Resp BP Pulse Ox O2 Del Method 09/03/24 07:08 97.4 F 71 16 154/87 H 97 Room Air 09/03/24 03:33 97.3 F 79 18 156/84 H 95 Room Air Anesthesia: General Mental Status: Awake Pain Control: Satisfactory Nausea/Vomiting: None Hydration: Adequate Anesthesia-Related Issues: No Anes. Related Issues
== END 2024-09-03 12:10 | disposition home health service (06) | DRG 854 ==
LOC: HO.ED 20:35 → HO.EDOVER 23:48 → HO.S3 08-29 19:04
PROVIDERS: Internal Medicine; Registered Nurse Emergency; Surgery; Admitting Provider Student in an Organized Health Care Education/Training Program; Emergency Provider Internal Medicine; PCP Internal Medicine; Visit Provider Internal Medicine
PROC: 0FT44ZZ Resection of Gallbladder, Percutaneous Endoscopic Approach (ICD-10-PCS; CPT 47562; principal; 2024-09-02 12:50)
DX: A41.9 Sepsis, unspecified organism (principal); E87.21 Acute metabolic acidosis; K81.0 Acute cholecystitis; G47.33 Obstructive sleep apnea (adult) (pediatric); I12.9 Hypertensive chronic kidney disease with stage 1 through stage 4 chronic kidney disease, or unspecified chronic kidney disease; N40.0 Benign prostatic hyperplasia without lower urinary tract symptoms; I25.10 Atherosclerotic heart disease of native coronary artery without angina pectoris; E87.6 Hypokalemia; B96.1 Klebsiella pneumoniae [K. pneumoniae] as the cause of diseases classified elsewhere; K21.9 Gastro-esophageal reflux disease without esophagitis; I27.20 Pulmonary hypertension, unspecified; N18.9 Chronic kidney disease, unspecified; M10.9 Gout, unspecified; E78.2 Mixed hyperlipidemia; Z20.822 Contact with and (suspected) exposure to COVID-19; Z87.891 Personal history of nicotine dependence; Z79.52 Long term (current) use of systemic steroids; Z79.82 Long term (current) use of aspirin; Z79.631 Long term (current) use of antimetabolite agent; Z79.899 Other long term (current) drug therapy
CPT/HCPCS: 0241U; 36415; 71046; 74177; 74181; 76705; 80048; 80053; 80076; 81003; 82150; 83605; 83690; 83735; 83880; 84484; 85025; 85027; 85610; 87040; 87077; 87186; 87205; 88304; 90656; 93005; 99285; J0696; J1650; J2003; J2371; J2470; J2543; J2704; J2795; J3010; Q9967

== ENCOUNTER → 2024-08-28 19:45 | Outpatient (BNV) | payer MEDICARE, SELFPAY | PROVIDERS: Admitting Provider Student in an Organized Health Care Education/Training Program; Emergency Provider Internal Medicine; PCP Internal Medicine; Visit Provider Internal Medicine Cardiovascular Disease | DX: R94.31 Abnormal electrocardiogram [ECG] [EKG] (principal) | CPT/HCPCS: 93010 ==

== ENCOUNTER → 2024-08-28 23:39 | Outpatient (BNV) | payer MEDICARE, SELFPAY | PROVIDERS: Admitting Provider Student in an Organized Health Care Education/Training Program; Emergency Provider Internal Medicine; PCP Internal Medicine; Visit Provider Internal Medicine | DX: R10.11 Right upper quadrant pain (principal); R17 Unspecified jaundice; K83.8 Other specified diseases of biliary tract; R79.89 Other specified abnormal findings of blood chemistry | CPT/HCPCS: 99222 ==

== ENCOUNTER → 2024-08-28 23:39 | Outpatient (BNV) | payer MEDICARE, SELFPAY | PROVIDERS: Admitting Provider Student in an Organized Health Care Education/Training Program; Emergency Provider Internal Medicine; PCP Internal Medicine; Visit Provider Surgery | DX: R79.89 Other specified abnormal findings of blood chemistry (principal); K83.8 Other specified diseases of biliary tract; R17 Unspecified jaundice; A41.9 Sepsis, unspecified organism; K81.0 Acute cholecystitis | CPT/HCPCS: 47562; 99222; 99232; 99429 ==

== ENCOUNTER → 2024-08-28 23:39 | Outpatient (BNV) | payer MEDICARE, SELFPAY | PROVIDERS: Admitting Provider Student in an Organized Health Care Education/Training Program; Emergency Provider Internal Medicine; PCP Internal Medicine; Visit Provider Student in an Organized Health Care Education/Training Program | DX: A41.9 Sepsis, unspecified organism (principal); R74.01 Elevation of levels of liver transaminase levels | CPT/HCPCS: 99223; 99232; 99239; G0180 ==

== ENCOUNTER 2024-09-10 10:00 | Outpatient (REF) | payer MEDICARE, SELFPAY ==
[2024-09-10 11:40] LABS: Alanine Aminotransferase 46 U/L (0-40); Albumin Level 3.8 g/dL (3.5-5.0); Alkaline Phosphatase 90 U/L (39-117); Aspartate Amino Transferase 30 U/L (5-37); Bilirubin Direct 0.7 mg/dL (0.0-0.5); Bilirubin Total 1.5 mg/dL (0.0-1.0); Total Protein 6.5 g/dL (6.5-8.0)
== END 2024-09-10 10:01 | disposition home or self-care (01) ==
LOC: HO.LAB 10:00
PROVIDERS: PCP Internal Medicine; Visit Provider Internal Medicine
DX: R79.89 Other specified abnormal findings of blood chemistry (principal)
CPT/HCPCS: 36415; 80076

== ENCOUNTER 2024-09-16 14:20 | Outpatient (AMB) | payer MEDICARE, SELFPAY ==
--- NOTE | 2024-09-16 14:34 | MHC.OFFVIS ---
Vital Signs 09/16/24 14:35 Height 5 ft 11 in Weight 214 lb 15.211 oz BMI 30.0 BP 110/70 Blood Pressure Location Lt brachial Position Sitting Pulse 83 Pulse Source Pulse Oximeter Pulse Oximetry (%) 96 Oxygen Delivery Method Room Air Intake Visit Reasons: Obstructive sleep apnea Intake Note: pt is here for follow up and states he is doing okay, sometimes he can get 6 hours of his cpap Chinese Language Professor Required: No Allergies allopurinol Adverse Reaction (Mild, Verified 09/16/24 14:43) Rash atorvastatin Adverse Reaction (Mild, Verified 09/16/24 14:43) Rash Medication List - Last Reconciled 09/16/24 by Karla Kwan MD aspirin 81 mg PO DAILY carvedilol (Coreg) 3.125 mg PO DAILY CPAP (CPAP Machine/Device) As directed diphenhydramine-acetaminophen 25-500 mg (Tylenol PM Extra Strength) 1 tab PO BEDTIME PRN folic acid 1 mg PO SUMOWETHFRSA@0900 furosemide 40 mg PO DAILY 90 days methotrexate sodium 15 mg PO TU@0900 omeprazole 40 mg PO DAILY@0630 [Shower chair As directed] tamsulosin 0.4 mg PO BEDTIME [Walker As directed] Do you need a note to return to daycare/school/sports/work: No HPI HPI Obstructive sleep apnea: Details: USE IF IS 79 YEARS OLD GENTLEMAN WHO COMES FOR FOLLOW-UP FOR HIS SLEEP APNEA AFTER 6 MONTHS. HE HAS BEEN USING CPAP VERY. REGULARLY EVERY NIGHT HOWEVER 2 WEEKS AGO HE WAS IN THE HOSPITAL FOR 4-5 DAYS AND MISSED USING THE CPAP. ( HE HAD SEPTIC CHOLECYSTITIS AND UNDERWENT LAPROSCOPIC CHOLECYSTECTOMY , RECOVERED WELL) HE HAS NO ISSUE WITH THE CPAP MASK OR CPAP DEVICE. WEIGHT HAS BEEN UNCHANGED. [facility] Medical History Cholecystitis GEOVANNI (obstructive sleep apnea) Obesity (BMI 30.0-34.9) Renal insufficiency Hx of skin pruritus Gout Gastric ulcer Obesity Pulmonary hypertension Essential hypertension HLD (hyperlipidemia) Surgical History H/O colonoscopy H/O foot surgery History of cataract surgery Family History Father No problems noted. Mother Colon cancer Sister Colon cancer Brother Stomach cancer Social History Household Members: None Housing: House Do you presently have visiting nurse or other home services: No Alcohol intake: never Comment: 2 MTHS AGO Patient Tobacco Use Status: Former Tobacco user e-Cigarette/Vaping Use: Never Used Second Hand Smoke Exposure: No Advance Directives Date on File: 08/23/20 service: No Current occupational status: retired Cognitive needs: No Hearing needs: No Vision needs: Yes Review of Systems Const All systems reviewed & are unremarkable except as noted in HPI and below Eyes Reports no additional complaints ENT Reports no additional complaints Card Denies chest pain, Denies irregular heart rhythm, Reports leg edema and Reports dyspnea on exertion Resp Denies cough, Reports dyspnea on exertion and Denies wheezing GI Reports no additional complaints Reports nocturia Musc Reports no additional complaints and Reports abnormal gait (GAIT IS SLIGHTLY SLOW AND HE USES A CANE) Skin/Breast Reports rash (NONSPECIFIC SKIN CONDITION SINCE LAST YEAR) Neuro Reports abnormal gait (GAIT IS SLIGHTLY SLOW AND HE USES A CANE) Psych Reports depression (MILD) Endo Reports no additional complaints Jose Antonio/Lymph Reports no additional complaints Aller/Immun Denies wheezing Physical Exam Vital Signs: Last Vital Signs Pulse 83 09/16/24 14:35 BP 110/70 09/16/24 14:35 Pulse Ox 96 09/16/24 14:35 Oxygen Delivery Method Room Air 09/16/24 14:35 BMI result Body Mass Index 30.0 Const Other: HE IS MODERATELY OBESE, SLOW IN WALKING. General: comfortable, no acute distress, alert and awake Orientation/consciousness: patient oriented x3 HEENT Head: Yes normal to inspection General nose exam: No nasal polyps present and No nasal discharge present Face and sinus: Yes sinuses nontender Mouth: oropharynx abnormals (MODERATELY NARROW AND CROWDED. MALLAMPATI SCALE 3.) Throat: Yes posterior oropharynx normal Eyes General: appearance normal, both eyes and all related structures Neck Neck: Yes normal visual inspection, Yes no lymphadenopathy, Yes trachea midline, Yes no JVD and Yes other (NECK CIRCUMFERENCE 17 IN) Thyroid: Thyroid normal Chest Chest palpation & inspection: normal inspection of the chest, normal palpation of entire chest wall and no tenderness Resp Other: PERCUSSION NOTE IS RESONANT, HE HAS EQUAL BREATH SOUNDS ON BOTH SIDES. BREATH SOUNDS ARE VESICULAR. NO WHEEZES OR CREPITATIONS ARE HEARD. Cardio Palpation: normal PMI Rate: regular rate Rhythm: regular rhythm Heart sounds: no gallops and no murmurs GI Palpation (GI): Soft to palpation, nontender, No hepatosplenomegaly present and no masses Auscultation: normal bowel sounds Back/Spine/Pelvis Thoracic/Lumbar Spine: thoracic and lumbar spine normal to inspection Skin General skin exam: other (HE HAS GENERALIZED, NONSPECIFIC RASH ON HIS TRUNK AND ALL ARMS.) Neuro General: patient oriented x3, No gait normal (MOSTLY NORMAL BUT SLOW AND HE HAS TO USE CANE) and no focal motor deficits Cranial nerves: Yes CN's II-XII intact bilaterally Extrem General: Yes normal to inspection, Yes no calf tenderness and Yes edema (Only minimal degree of edema around the ankles.) Psych Appearance: grossly normal and well kempt Speech and movement: Normal speech and movement present Affect: Sad affect present Results Reviewed Results Reviewed: COMPLIANCE REPORT FOR THE LAST 30 NIGHTS IS REVIEWED. HE HAS USED 22/30 NIGHTS,. 73% HE MISSED USING THE CPAP FOR ABOUT 8 NIGHTS MOSTLY BECAUSE HE WAS IN THE HOSPITAL HAVING CHOLECYSTECTOMY THERE IS A SLIGHT AIR LEAK. RESIDUAL AHI IS ONLY 3.6 Assessment & Plan Assessment & Plan (1) GEOVANNI (obstructive sleep apnea): Comment: KNOWN CASE OF OBSTRUCTIVE SLEEP APNEA. WELL TREATED WITH USE OF CPAP . NORMALLY HE USES CPAP EVERY NIGHT REGULARLY. USING CPAP ON AN AVERAGE FOR 5 HOURS EVERY NIGHT. DENIES DAYTIME SLEEPINESS. Code(s): G47.33 - Obstructive sleep apnea (adult) (pediatric) Category: Medical Plan: ADVISED TO KEEP ON USING CPAP EVERY NIGHT AND TRY TO USE FOR ABOUT 6 HOURS PER NIGHT. (2) Obesity (BMI 30.0-34.9): Comment: PATIENT IS MODERATELY OBESE, THIS IS PARTLY DUE TO EDEMA OF LOWER EXTREMITIES. HE IS NOT FIT TO DO MUCH EXERCISE OR EVEN WALK. SO I DO NOT EXPECT HIM TO LOSE MUCH WEIGHT, EXCEPT WITH DIURESIS. Code(s): E66.9 - Obesity, unspecified Category: Medical Plan: WEIGHT LOSS IS NOT EXPECTED (3) Pulmonary hypertension: Comment: REPORTED IN ECHOCARDIOGRAM STUDY THAT HE HAS MILD PULMONARY HYPERTENSION. WITH THE USE OF CPAP THERAPY IT IS EXPECTED TO IMPROVE. Code(s): I27.20 - Pulmonary hypertension, unspecified Category: Medical Plan: ABOVE Coding Level of Care Code Est Pt Level 3 (43249) Diagnoses GEOVANNI (obstructive sleep apnea) G47.33 Obesity (BMI 30.0-34.9) E66.9 Pulmonary hypertension I27.20
[2024-09-16 14:35] VITALS: BP 110/70; PULSE 83; O2SAT 96
== END 2024-09-16 14:56 | disposition home or self-care (01) ==
LOC: HO.HPS 14:20
PROVIDERS: PCP Internal Medicine; Visit Provider Internal Medicine
DX: G47.33 Obstructive sleep apnea (adult) (pediatric) (principal); E66.9 Obesity, unspecified; I27.20 Pulmonary hypertension, unspecified
CPT/HCPCS: 99213

== ENCOUNTER → 2024-09-16 14:20 | Outpatient (BNVA) | payer MEDICARE, SELFPAY | PROVIDERS: PCP Internal Medicine; Visit Provider Internal Medicine | DX: G47.33 Obstructive sleep apnea (adult) (pediatric) (principal); E66.9 Obesity, unspecified; I27.20 Pulmonary hypertension, unspecified; Z68.30 Body mass index [BMI] 30.0-30.9, adult; Z99.89 Dependence on other enabling machines and devices | CPT/HCPCS: 99212 ==

== ENCOUNTER 2024-09-17 12:53 | Outpatient (AMB) | payer MEDICARE, SELFPAY ==
[2024-09-17 12:56] VITALS: BP 146/80; PULSE 77; O2SAT 98; BMI 29.8
--- NOTE | 2024-09-17 12:56 | MHC.PC.OV ---
Vital Signs 09/17/24 12:56 09/17/24 13:21 Height 5 ft 11 in Weight 214 lb BMI 29.8 BP 146/80 H 112/74 Blood Pressure Location Lt brachial Lt brachial Position Sitting Sitting Pulse 77 Pulse Source Pulse Oximeter Pulse Oximetry (%) 98 Oxygen Delivery Method Room Air Intake Visit Reasons: tcm 2 week 09/03 [facility] Intake Note: Patient is here for hospital discharge follow up. Patient was discharged from [facility] on 09/03/24 Allergies allopurinol Adverse Reaction (Mild, Verified 09/17/24 13:02) Rash atorvastatin Adverse Reaction (Mild, Verified 09/17/24 13:02) Rash Medication List - Last Reconciled 09/17/24 by Fara Matos PA-C aspirin 81 mg PO DAILY carvedilol (Coreg) 3.125 mg PO DAILY CPAP (CPAP Machine/Device) As directed diphenhydramine-acetaminophen 25-500 mg (Tylenol PM Extra Strength) 1 tab PO BEDTIME PRN folic acid 1 mg PO SUMOWETHFRSA@0900 furosemide 40 mg PO DAILY 90 days methotrexate sodium 15 mg PO TU@0900 omeprazole 40 mg PO DAILY@0630 [Shower chair As directed] tamsulosin 0.4 mg PO BEDTIME [Walker As directed] Tobacco use date assessed: 03/12/24 Fall risk assessment: No Falls in past year Last assessed Fall Risk: 09/17/24 Dental Screening Dental Screen Date: 03/12/24 HPI tcm 2 week 09/03 [facility] HPI Details 79 year old male with past history of hypertension, hyperlipidemia, pulmonary hypertension, hx of gastric ulcer with GERD, CAD, BPH last seen by Dr. Valentin coming in for hospital discharge follow up. In review of the notes, patient was seen in [facility] 08/28/2024 for upper abdominal pain,?CT scan showed dilated common bile duct without stones or sludge an MRCP was suggestive of acalculous cholecystitis. Positive blood cultures for Klebsiella.?Patient underwent cholecystectomy 09/02/[address] Rosenberg without complication patient was stabilized and discharged home 09/03/2024 to complete 14 days of antibiotics.?Patient has sought pulmonology 09/16/2024 using CPAP regularly and stable on current medication regimen.?Patient has follow up with Cardiology today and follow up with General surgery tomorrow. Patient states he is feeling generally well. Denies any abdominal pain, nausea, vomiting or diarrhea. He has advanced his diet back to normal diet and has had no digestive issues or diarrhea since cholecystectomy. Continues to use CPAP regularly and finds good benefit from this. TCM TCM Information Date of Discharge 09/03/24 Discharged From [facility] Medical History (Updated 09/17/24 @ 15:05 by Fara Matos PA-C) Cholecystitis GEOVANNI (obstructive sleep apnea) Obesity (BMI 30.0-34.9) Renal insufficiency Hx of skin pruritus Gout Gastric ulcer Obesity Pulmonary hypertension Essential hypertension HLD (hyperlipidemia) Surgical History (Updated 09/17/24 @ 14:50 by Lexi Barney CMA) Hx of cholecystectomy H/O colonoscopy H/O foot surgery History of cataract surgery Family History Father No problems noted. Mother Colon cancer Sister Colon cancer Brother Stomach cancer Social History Household Members: None Housing: House Do you presently have visiting nurse or other home services: No Alcohol intake: never Comment: 2 MTHS AGO Patient Tobacco Use Status: Former Tobacco user e-Cigarette/Vaping Use: Never Used Second Hand Smoke Exposure: No Advance Directives Date on File: 08/23/20 service: No Current occupational status: retired Cognitive needs: No Hearing needs: No Vision needs: Yes Questionnaire PHQ-9 Over the last 2 weeks, how often have you been bothered by any of the following problems? 1. Little interest or pleasure in doing things: not at all 2. Feeling down, depressed, or hopeless: not at all 3. Trouble falling or staying asleep, or sleeping too much: not at all 4. Feeling tired or having little energy: not at all 5. Poor appetite or overeating: not at all 6. Feeling bad about yourself - or that you are a failure or have let yourself or your family down: not at all 7. Trouble concentrating on things, such as reading the newspaper or watching television: not at all 8. Moving or speaking so slowly that other people could have noticed. Or the opposite - being so fidgety or restless that you have been moving around a lot more than usual: not at all 9. Thoughts that you would be better off or of hurting yourself in some way: not at all Total score: 0 Depression Screening Interpretation: Negative Depression Screening Done: Yes 89807 - PHQ-9 Billing: Yes Source: Developed by Drs. Tre Salvador, Ruth Conrad, Talib Gregory and colleagues, with an educational arnoldo from [employer]. Thrive Questionnaire Date Thrive assessed: 08/29/24 I am a: Patient What is your living situation today?: I have a steady place to live Within the past 12 months, did the food you bought not last and you didn't have the money to get more?: Never true Within the past 12 months, did you worry whether your food would run out before you got money to buy more?: Never true Do you have trouble paying for medicines?: No Do you have trouble getting transportation to medical appointments?: No Do you have trouble paying your heating and electricity bill?: No Do you have trouble taking care of your child, family member or friend?: No Do you have trouble with day-to-day activities such as bathing, preparing meals, shopping, managing finances, etc.?: No Are you currently unemployed and looking for a job?: No Are you interested in more education?: No Please select the resources that you would like help with: None Currently or been in a relationship where the following occur: No concerns reported THRIVE Score: 0 AUDIT C Alcohol Use Questionnaire (AUDIT-C) 1. How often do you have a drink containing alcohol?: Never 3. How often do you have six or more drinks on one occasion?: Never Total Score: 0 RACHEL-7 AMB Questionnaire RACHEL-7 Date RACHEL - 7 assessed: 03/12/24 Source: Developed by Drs. Tre Salvador, Ruth Conrad, Talib Gregory and colleagues, with an educational arnoldo from [employer]. Review of Systems Const Denies body aches, Denies chills, Denies fever(s), Denies headache(s) and Denies poor appetite Eyes Reports no additional complaints ENT Denies dizziness and Denies headache(s) Card Denies chest pain, Denies edema, Denies lightheadedness and Denies dyspnea Resp Denies dyspnea GI Denies abdominal pain, Denies constipation, Denies diarrhea, Denies nausea and Denies vomiting Reports no additional complaints Musc Reports no additional complaints and Denies abnormal gait Skin/Breast Reports system reviewed and no additional complaints, except as documented Neuro Denies abnormal gait, Denies dizziness and Denies headache(s) Psych Reports no additional complaints Physical exam (Primary Care) Vital Signs: Last Vital Signs Pulse 77 09/17/24 12:56 BP 112/74 09/17/24 13:21 Pulse Ox 98 09/17/24 12:56 Oxygen Delivery Method Room Air 09/17/24 12:56 BMI result Body Mass Index 29.8 Tobacco/Smoking Status: Tobacco use Status Tobacco use date assessed 03/12/24 09/17/24 12:57 Patient Tobacco Use Status Former Tobacco user 09/17/24 12:57 Tobacco use type 08/22/23 16:24 e-Cigarette/Vaping Use Never Used 09/17/24 12:57 PHQ-9: PHQ-9 Score PHQ-9: Total score 0 09/17/24 13:06 Depression Screening Interpretation: Negative Thrive Assessment: Date of Thrive Assessment Date Thrive assessed 08/29/24 09/17/24 12:57 Currently or been in a relationship where the following occur: No concerns reported Coding Level of Care Code TCM Mod MDM <= 14 Days Complex EM visit Add On G2211 Diagnoses CAD (coronary artery disease) I25.10 GEOVANNI (obstructive sleep apnea) G47.33 Obesity (BMI 30.0-34.9) E66.9 Pulmonary hypertension I27.20 Essential hypertension I10 Cholecystitis K81.9 Assessment & Plan Assessment & Plan (1) CAD (coronary artery disease): Code(s): I25.10 - Atherosclerotic heart disease of [place] coronary artery without angina pectoris Category: Medical Plan: Advised good control of blood pressure, cholesterol and blood sugars. (2) GEOVANNI (obstructive sleep apnea): Comment: KNOWN CASE OF OBSTRUCTIVE SLEEP APNEA. WELL TREATED WITH USE OF CPAP . NORMALLY HE USES CPAP EVERY NIGHT REGULARLY. USING CPAP ON AN AVERAGE FOR 5 HOURS EVERY NIGHT. DENIES DAYTIME SLEEPINESS. Code(s): G47.33 - Obstructive sleep apnea (adult) (pediatric) Category: Medical Plan: Uses CPAP faithfully at least 4 hours a night and benefits from this therapy. (3) Obesity (BMI 30.0-34.9): Comment: PATIENT IS MODERATELY OBESE, THIS IS PARTLY DUE TO EDEMA OF LOWER EXTREMITIES. HE IS NOT FIT TO DO MUCH EXERCISE OR EVEN WALK. SO I DO NOT EXPECT HIM TO LOSE MUCH WEIGHT, EXCEPT WITH DIURESIS. Code(s): E66.9 - Obesity, unspecified Category: Medical Plan: Healthy diet and regular exercise is encouraged. (4) Pulmonary hypertension: Comment: REPORTED IN ECHOCARDIOGRAM STUDY THAT HE HAS MILD PULMONARY HYPERTENSION. WITH THE USE OF CPAP THERAPY IT IS EXPECTED TO IMPROVE. Code(s): I27.20 - Pulmonary hypertension, unspecified Category: Medical Plan: Continue to follow up with pulmonology. (5) Essential hypertension: Code(s): I10 - Essential (primary) hypertension Category: Medical Plan: Continue on current blood pressure medication. Avoid salt intake and encourage healthy diet and regular exercise. Blood pressure at goal today. (6) Cholecystitis: Code(s): K81.9 - Cholecystitis, unspecified Category: Medical Plan: Has been doing well status post cholecystectomy. Denies any fevers, abdominal pain, nausea, vomiting or diarrhea postoperatively. Follow up with General surgery tomorrow. Advised to avoid fatty meals as this may lead to diarrhea. Plan This note was constructed using voice recognition software. While every effort has been made to ensure accuracy and final armature tester, still areas may have been included sometimes these areas may affect the content or meeting of the given symptoms. Total time spent caring for the patient today was 30 minutes. This includes time spent before the visit reviewing the chart, time spent during the visit, and time spent after the visit and documentation.
[2024-09-17 13:21] VITALS: BP 112/74
== END 2024-09-17 13:33 | disposition home or self-care (01) ==
LOC: HO.HMCH 12:53
PROVIDERS: PCP Internal Medicine
DX: I25.10 Atherosclerotic heart disease of native coronary artery without angina pectoris (principal); G47.33 Obstructive sleep apnea (adult) (pediatric); E66.9 Obesity, unspecified; I27.20 Pulmonary hypertension, unspecified; I10 Essential (primary) hypertension; K81.9 Cholecystitis, unspecified

== ENCOUNTER → 2024-09-17 12:53 | Outpatient (BNVA) | payer MEDICARE, SELFPAY | PROVIDERS: PCP Internal Medicine | DX: I25.10 Atherosclerotic heart disease of native coronary artery without angina pectoris (principal); I45.2 Bifascicular block; I10 Essential (primary) hypertension; G47.33 Obstructive sleep apnea (adult) (pediatric); E66.9 Obesity, unspecified; I27.20 Pulmonary hypertension, unspecified; K81.9 Cholecystitis, unspecified | CPT/HCPCS: 96127; 99212; 99495 ==

== ENCOUNTER 2024-09-17 14:40 | Outpatient (AMB) | payer MEDICARE, SELFPAY ==
[2024-09-17 14:43] VITALS: BP 112/56; PULSE 82
--- NOTE | 2024-09-17 14:43 | MHC.OFFVIS ---
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 Troubleshooter Required: No Accompanied by: Self / Same As Patient Allergies allopurinol Adverse Reaction (Mild, Verified 09/17/24 13:02) Rash atorvastatin Adverse Reaction (Mild, Verified 09/17/24 13:02) Rash Medication List - Last Reconciled 09/17/24 by Salvador Atkins MD aspirin 81 mg PO DAILY carvedilol (Coreg) 3.125 mg PO DAILY CPAP (CPAP Machine/Device) As directed diphenhydramine-acetaminophen 25-500 mg (Tylenol PM Extra Strength) 1 tab PO BEDTIME PRN folic acid 1 mg PO SUMOWETHFRSA@0900 furosemide 40 mg PO DAILY 90 days methotrexate sodium 15 mg PO TU@0900 omeprazole 40 mg PO DAILY@0630 [Shower chair As directed] tamsulosin 0.4 mg PO BEDTIME [Walker As directed] HPI Comments Details: Bryce returns for follow-up regarding coronary artery disease. He states he is doing fine. No cardiac symptoms. [facility] Medical History (Updated 09/17/24 @ 15:05 by Fara Matos PA-C) Cholecystitis GEOVANNI (obstructive sleep apnea) Obesity (BMI 30.0-34.9) Renal insufficiency Hx of skin pruritus Gout Gastric ulcer Obesity Pulmonary hypertension Essential hypertension HLD (hyperlipidemia) Surgical History (Updated 09/17/24 @ 14:50 by Lexi Barney CMA) Hx of cholecystectomy H/O colonoscopy H/O foot surgery History of cataract surgery Family History Father No problems noted. Mother Colon cancer Sister Colon cancer Brother Stomach cancer Social History Household Members: None Housing: House Do you presently have visiting nurse or other home services: No Alcohol intake: never Comment: 2 MTHS AGO Patient Tobacco Use Status: Former Tobacco user e-Cigarette/Vaping Use: Never Used Second Hand Smoke Exposure: No Advance Directives Date on File: 08/23/20 service: No Current occupational status: retired Cognitive needs: No Hearing needs: No Vision needs: Yes Review of Systems Const Denies chills, Denies fatigue, Denies fever(s), Denies weight gain and Denies weight loss ENT Denies dizziness Card Denies chest pain, Reports leg edema, Denies lightheadedness, Denies palpitations, Denies dyspnea on exertion, Denies orthopnea and Denies other Resp Denies cough and Denies dyspnea on exertion GI Denies hematochezia and Denies change in stool character Musc Denies abnormal gait, Denies muscle weakness, Denies numbness, Denies radiating pain into limb and Denies tingling Neuro Denies abnormal gait, Denies dizziness, Denies numbness and Denies tingling Endo Denies fatigue and Denies palpitations Physical Exam Vital Signs: Last Vital Signs Pulse 82 09/17/24 14:43 BP 112/56 L 09/17/24 14:43 Const General: comfortable and no acute distress Orientation/consciousness: patient oriented x3 HEENT Other: Unremarkable Head: Yes normal to inspection Neck Neck: Yes normal visual inspection Chest Chest palpation & inspection: normal inspection of the chest Resp Auscultation: clear to auscultation bilaterally Cardio Palpation: normal PMI Heart sounds: S1 normal heart sound present, S2 normal heart sound present, no gallops, no murmurs and no rubs GI Palpation (GI): Soft to palpation Back/Spine/Pelvis Other: unremarkable Skin General skin exam: no rashes or lesions noted Neuro General: patient oriented x3 Extrem General: Yes normal to inspection Psych Mental Status: mental status grossly normal Assessment & Plan Assessment & Plan (1) Atherosclerotic cardiovascular disease: Code(s): I25.10 - Atherosclerotic heart disease of [place] coronary artery without angina pectoris Category: Medical Plan: Coronary CTA reviewed from 03/2021. He has nonobstructive disease in the LAD, RCA; in the PDA origin, suspected 50-69% stenosis; scattered calcification in the circumflex. Overall, no hemodynamically significant lesions. Stable from 2018. Myocardial perfusion imaging study from 2022 shows normal perfusion. Clinically, no angina. Remains on aspirin beta-blockers. No longer taking statins as apparently he developed a rash and he does not want to try anything else. (2) Bifascicular block: Code(s): I45.2 - Bifascicular block Category: Medical Plan: No specific implications at this time. Can be monitored by EKGs. (3) Essential hypertension: Code(s): I10 - Essential (primary) hypertension Category: Medical Plan: He is off a lot of blood pressure medications. He was on lisinopril, hydrochlorothiazide and amlodipine but not taking them anymore. Stable blood pressure. Coding Level of Care Code Est Pt Level 4 (97068) Diagnoses Atherosclerotic cardiovascular disease I25.10 Bifascicular block I45.2 Essential hypertension I10
== END 2024-09-17 15:01 | disposition home or self-care (01) ==
LOC: HO.HCS 14:40
PROVIDERS: PCP Internal Medicine; Visit Provider Internal Medicine
DX: I25.10 Atherosclerotic heart disease of native coronary artery without angina pectoris (principal); I45.2 Bifascicular block; I10 Essential (primary) hypertension
CPT/HCPCS: 99214

== ENCOUNTER 2024-09-18 12:42 | Outpatient (AMB) | payer MEDICARE, SELFPAY ==
--- NOTE | 2024-09-18 12:45 | MHC.OFFVIS ---
Vital Signs 09/18/24 12:50 Height 5 ft 11 in Weight 214 lb 0.008 oz BMI 29.8 Intake Visit Reasons: s/p lap lisa Intake Note: Patient is seen in office for post op assessment post laparoscopic cholecystectomy. Pt c/o: reports no complaints pertaining to surgery. surgery: 09/02/24 Assistant [employer] Public Defender Required: No Accompanied by: Self / Same As Patient Allergies allopurinol Adverse Reaction (Mild, Verified 09/18/24 12:51) Rash atorvastatin Adverse Reaction (Mild, Verified 09/18/24 12:51) Rash Medication List - Last Reconciled 09/18/24 by Iglesia Rosenberg MD aspirin 81 mg PO DAILY carvedilol (Coreg) 3.125 mg PO DAILY CPAP (CPAP Machine/Device) As directed diphenhydramine-acetaminophen 25-500 mg (Tylenol PM Extra Strength) 1 tab PO BEDTIME PRN folic acid 1 mg PO SUMOWETHFRSA@0900 furosemide 40 mg PO DAILY 90 days methotrexate sodium 15 mg PO TU@0900 omeprazole 40 mg PO DAILY@0630 [Shower chair As directed] tamsulosin 0.4 mg PO BEDTIME [Walker As directed] HPI Comments Details: 79-year-old male patient returning following a laparoscopic cholecystectomy performed on 09/02/2024. He reports feeling much improved with no abdominal pain, nausea or vomiting. He is eating well and his bowels were functioning properly. Denies any new complaints. [facility] Medical History (Updated 09/17/24 @ 15:05 by Fara Matos PA-C) Cholecystitis GEOVANNI (obstructive sleep apnea) Obesity (BMI 30.0-34.9) Renal insufficiency Hx of skin pruritus Gout Gastric ulcer Obesity Pulmonary hypertension Essential hypertension HLD (hyperlipidemia) Surgical History (Updated 09/17/24 @ 14:50 by Lexi Barney CMA) Hx of cholecystectomy H/O colonoscopy H/O foot surgery History of cataract surgery Family History Father No problems noted. Mother Colon cancer Sister Colon cancer Brother Stomach cancer Social History Household Members: None Housing: House Do you presently have visiting nurse or other home services: No Alcohol intake: never Comment: 2 MTHS AGO Patient Tobacco Use Status: Former Tobacco user e-Cigarette/Vaping Use: Never Used Second Hand Smoke Exposure: No Advance Directives Date on File: 08/23/20 service: No Current occupational status: retired Cognitive needs: No Hearing needs: No Vision needs: Yes Physical Exam Vital Signs: BMI result Body Mass Index 29.8 Const General: comfortable Nutritional Appearance: well nourished Orientation/consciousness: patient oriented x3 Limitations: ambulation with cane Resp Effort & Inspection: normal respiratory effort GI Other: Soft, nondistended, nontender, well-healed trocar incisions without redness or discharge. No palpable hernia with Valsalva. Neuro General: patient oriented x3 Extrem General: No edema Assessment & Plan Assessment & Plan (1) Cholecystitis: Code(s): K81.9 - Cholecystitis, unspecified Category: Medical Plan 79-year-old male patient status post laparoscopic cholecystectomy returning for postoperative visit. His wounds are clean and intact without redness or discharge. There is no evidence of hernia or infection. He should follow up as needed. Coding Level of Care Code Global (90312) Diagnoses Cholecystitis K81.9
[2024-09-18 12:50] VITALS: BMI 29.8
== END 2024-09-18 12:56 | disposition home or self-care (01) ==
PROVIDERS: PCP Internal Medicine; Visit Provider Surgery
DX: K81.9 Cholecystitis, unspecified (principal)
CPT/HCPCS: 99024

== ENCOUNTER → 2024-09-18 12:42 | Outpatient (BNVA) | payer MEDICARE, SELFPAY | PROVIDERS: PCP Internal Medicine; Visit Provider Surgery | DX: K81.9 Cholecystitis, unspecified (principal); Z90.49 Acquired absence of other specified parts of digestive tract | CPT/HCPCS: 99212 ==

== ENCOUNTER 2024-12-10 14:42 | Outpatient (REF) | payer MEDICARE, SELFPAY ==
--- OUTSIDE RECORDS SUMMARY | 2024-12-10 17:12 | XMS_ITS | Encounter Summary ---
Author Organization [facility] Address [address] [place] [address] Care Team Providers Care Residential Case Manager Name Role Phone Irving Valentin Primary Care Provider [phone] Encounter Details Date Type Department Care Team (Late st Contact Info) Description 10/22/2024 myChart Message [facility] 4th [address] [place] [address] [phone] Last Sawyer: Bg Noland MD [address] [place] [phone] Biopsy Results Social History Tobacco Use Types Packs/Day Years Used Date Smoking Tobacco: Former Cigarettes Smokeless Tobacco: Never Sex and Gender Information Value Date Recorded Sex Assigned at Male 05/27/2024 8:09 AM EDT Legal Sex Male 3:18 PM EDT Gender Identity Male 10/07/2024 10:51 AM EST Sexual Orientation Choose not to disclose 2023 10:51 AM EST documented as of this encounter Plan of Treatment Upcoming Encounters Date Type Department Care Team (Late st Contact Info) Description 12/19/2024 1:00 PM EST Procedure visit [facility] 4th [address] [place] [phone] Last Sawyer: Brock Goodman MD [address] [place] [phone] 01/26/2025 8:30 AM EDT Follow-Up [facility] 4th Floor [address] [facility], [place] [phone] Last Sawyer: Bg Noland MD [address] [place] [address] documented as of this encounter Visit Diagnoses Not on filedocumented in this encounter Care Teams Residential Case Manager Relationship Specialty Start Date End Date Irving Valentin [address] [place] [address] [place] [address] PCP - General Internal Medicine 09/03/23 documented as of this encounter
--- OUTSIDE RECORDS SUMMARY | 2024-12-10 17:12 | XMS_ITS | Clinical Summary ---
Author Organization [facility] Address [address] [place] [address] Care Team Providers Care Interactive Developer Name Role Phone Irving Valentin Primary Care Provider [phone] Allergies Active Allergy Reactions Criticality Noted Date Comments Atorvastatin Rash High 12/21/2023 Medications carvediloL (COREG) 3.125 mg tablet Take 3.125 mg by mouth once a day. Active tamsulosin (FLOMAX) 0.4 mg capsule Oral for 90 Act sarah furosemide (Lasix) 40 mg tablet Furosemide Active aspirin 81 mg EC tablet Take 81 mg by mouth. Active omeprazole (PriLOSEC) 40 mg capsule 1 Orally Every morning for 30 day(s) 09/27/20 23 Active cetirizine (ZyrTEC) 10 mg capsule capsuleIndications:D ermatitis Take one tablet twice daily 60 capsule 2 11/06/20 23 Active triamcinolone acetonide (KENALOG) 0.1% ointmentIndications: Dermatitis Apply to rash twice daily as needed 454 g 3 11/06/20 23 Active Additional Information Patient not taking.Reported on 10/14/2024 triamcinolone acetonide (KENALOG) 0.1% creamIndications:Stefano matitis Apply to rash twice daily until flat and smooth. Do not use on face, in genital area or in skin folds. 454 g 11/14/20 23 Active Additional Information Patient not taking.Reported on 10/14/2024 folic acid (FOLVITE) 1 mg tabletIndications:De rmal hypersensitivity reaction Take ONE tablet daily on days when you DO NOT take methotrexate (i.e. 6 days per week) 24 tablet 5 10/14/20 24 Active methotrexate (TREXALL) 2.5 mg tabletIndications:De rmal hypersensitivity reaction Take 8 tablets (20 mg total) by mouth once a week. All on the same day each week. 10/15/20 Active Active Problems Problem Noted Date Diagnosed Date Change in bowel habits 11/23/2023 Diverticulosis of colon 11/23/2023 Dysphagia 11/23/2023 Esophageal dysphagia 11/23/2023 Gastroesophageal reflux disease 11/23/2023 Ingrowing nail 11/23/2023 Peptic ulcer disease 11/23/2023 Tinea unguium 11/23/2023 Hypertension 01/24/2023 Stage 3a chronic kidney disease 01/24/2023 Encounters Date Type Department Care Team Description 10/22/2024 myChart Message [facility] [address] [place] [address] [phone] Concrete Pavement Installer: Bg Noland MD Biopsy Results 10/21/2024 Telephone [facility] [address] [place] [address] [phone] Concrete Pavement Installer: Haydee Fernandes LPN 10/15/2024 myChart Message [facility] [address] [place] [phone] Concrete Pavement Installer: Bg Noland MD Methotrexate 10/14/2024 11:15 AM EST Follow-Up [facility] [address] [place] [phone] Concrete Pavement Installer: Bg Noland MD Dermal hypersensitivity reaction (Primary Dx); Neoplasm of uncertain behavior; High risk medication use 10/07/2024 myChart Message [facility] Dermatology [address] [phone] Concrete Pavement Installer: Bg Noland MD Labwork before f/u alfonso from Last 3 Months Immunizations Name Administration Dates Next Due Covid-19, Pfizer, mRNA, Surry valent, PF 30 mcg/0.3 mL dose (for ages 12 and older) 09/12/2021 Influenza Split 10/13/2015 Influenza, High Dose Seasona l, Preservative Free 07/25/2019,08/29/2017,09/13/2016 Influenza, High Dose Seasona l, Quadrivalent PF 09/04/2022,08/19/2021,08/05/2020 Influenza, Injectable, Quadr ivalent, Preservative Free 09/11/2023 Influenza, Trivalent, Adjuvanted, PF 08/28/2018 Influenza, Trivalent, MDV, Injectable 09/04/2022 ,08/22/2010 Pneumococcal Polysaccharide Vaccine, 23 Valent 01/05/2009 Tetanus Toxoid, Reduced Diph theria Toxoid, and Acellular Pertussis Vaccine, Adsorbed 05/26/2021 Tetanus and Diphtheria Toxoi ds, Adsorbed, Preservative Free, for Adult Use (5 Lf of Tetanus Toxoid and 2 Lf of Diphtheria Toxoid) 05/03/2018 Social History Tobacco Use Types Packs/Day Years Used Date Smoking Tobacco: Former Cigarettes Smokeless Tobacco: Never Tobacco Cessation:Counseling Given: Not Answered Sex and Gender Information Value Date Recorded Sex Assigned at Male 05/27/2024 8:09 AM EDT Legal Sex Male 3:18 PM EDT Gender Identity Male 10/07/2024 10:51 AM EST Sexual Orientation Choose not to disclose 2023 10:51 AM EST Last Filed Vital Signs Vital Sign Reading Time Taken Comments Blood Pressure 142/97 12/21/2023 8:01 AM EST Pulse 93 12/21/2023 8:01 AM EST Temperature - - Respiratory Rate - - Oxygen Saturation - - Inhaled Oxygen Concentration - - Weight - - Height - - Body Mass Index - - Plan of Treatment Upcoming Encounters Date Type Department Care Team (Late st Contact Info) Description 12/19/2024 1:00 PM EST Procedure visit [facility] 4th Floor [address] [facility], Fourth [place] [phone] Concrete Pavement Installer: Brock Goodman MD [address] [place] [phone] 01/26/2025 8:30 AM EDT Follow-Up [facility] 4th Floor [address] [facility], Fourth [place] [phone] Concrete Pavement Installer: Bg Noland MD [address] [place] [address] Health Maintenance Due Date Last Done Comments Zoster Vaccines (1 of 2) 1993 Pneumococcal Vaccine: 65+ Years (2 of 2 - PCV) 01/05/2010 01/05/2009 RSV Vaccine (60+ years old and patients) (1 - 1-dose 75+ series) 2018 COVID-19 Vaccine ( - season) 2024 09/12/2021, 01/20/2021, 12/30/2020 Alcohol/Substance Use Screening 11/19/2024 Depression Screening and Follow-Up 11/19/2024 Fall Risk Screening 11/19/2024 Health Care Proxy Review 11/19/2024 Social Drivers of Health Annual Screening 11/19/2024 Basic Metabolic Panel 10/14/2025 10/14/2024 , 02/18/2016, 02/10/2014, Additional history exists DTaP,Tdap,and Td Vaccines (2 - Td or Tdap) 05/26/2031 05/26/2021, 05/03/2018 Tobacco Screening 11/19/2042 10/14/2024 Influenza Vaccine Completed 08/30/2024, , 09/04/2022, Additional history exists Hepatitis B Vaccines Aged Out No long er eligible based on patient's age to complete this topic Procedures * Due to [place] state law, this organization might not be sharing negative HIV tests. Procedure Name Priority Date/Time Associated Diagnosis Comments CBC AUTO DIFFERENTIAL Routine 10/14/2024 12:49 PM EST High risk medication use COMPREHENSIVE METABOLIC PANEL Routine 10/14/2024 12:49 PM EST High risk medication use TISSUE EXAM Routine 10/14/2024 12:02 PM EST Neoplasm of uncertain behavior from Last 3 Months Results * Due to [place] state law, this organization might not be sharing negative HIV tests. * (ABNORMAL) CBC Auto Differential (10/14/2024 12:49 PM EST) WBC 7.4 3.8 - 10.8 10*3/uL 10/14/2024 3:50 PM EST [facility] RBC 4.43 4.20 - 5.80 10*6/uL 10/14/2024 3:50 PM EST [facility] Hemoglobin 13.7 13.2 - 17.1 g/dL 10/14/2024 3:50 PM EST [facility] Hematocrit 40.5 38.5 - 50.0 % 10/14/2024 3:50 PM EST [facility] MCV 91.4 80.0 - 100.0 fL 10/14/2024 3:50 PM EST [facility] MCH 30.9 27.0 - 33.0 pg 10/14/2024 3:50 PM EST [facility] MCHC 33.8 32.0 - 36.0 g/dL 10/14/2024 3:50 PM EST [facility] RDW 14.4 11.0 - 15.0 % 10/14/2024 3:50 PM EST [facility] Platelets 200 140 - 400 10*3/uL 10/14/2024 3:50 PM EST [facility] MPV 10.1 7.5 - 12.5 fL 10/14/2024 3:50 PM EST [facility] Neutrophil % 58.3 % 10/14/2024 3:50 PM EST [facility] Immature Grans % 0.7 0.0 - 0.9 % 10/14/2024 3:50 PM EST [facility] Lymphocyte % 25.8 % 10/14/2024 3:50 PM EST [facility] Monocyte % 10.3 % 10/14/2024 3:50 PM EST [facility] Eosinophil % 4.1 % 10/14/2024 3:50 PM EST [facility] Basophil % 0.8 % 10/14/2024 3:50 PM EST [facility] Neutrophil # 4.29 1.50 - 7.80 10*3/uL 10/14/2024 3:50 PM EST [facility] Immature Grans # 0.05(H) <=0.03 10*3/uL 10/14/2024 3:50 PM EST [facility] Lymphocyte # 1.90 0.85 - 3.90 10*3/uL 10/14/2024 3:50 PM EST [facility] Monocyte # 0.80 0.20 - 0.95 10*3/uL 10/14/2024 3:50 PM EST [facility] Eosinophil # 0.30 0.02 - 0.50 10*3/uL 10/14/2024 3:50 PM EST [facility] Basophil # 0.10 0.00 - 0.20 10*3/uL 10/14/2024 3:50 PM EST [facility] nRBC % 0.0 /100 WBCs 10/14/2024 3:50 PM EST [facility] nRBC # <0.01 <0.01 10*3/uL 10/14/2024 3:50 PM EST [facility] Blood Structure of peripheral vein / Unknown Venipuncture / Unknown 10/14/2024 12:49 PM EST 10/14/2024 12:53 PM EST Bg Clinton MD LAB BLOOD ORDERABLES Final Res ult [facility] [address] [place] [address], * (ABNORMAL) Comprehensive Metabolic Panel (10/14/2024 12:49 PM EST) NA 141 135 - 145 mmol/L 10/14/2024 4:02 PM EST [facility] K 3.5 3.5 - 5.3 mmol/L 10/14/2024 4:02 PM EST [facility] Cl 100 98 - 107 mmol/L 10/14/2024 4:02 PM EST [facility] CO2 28 22 - 32 mmol/L 10/14/2024 4:02 PM EST [facility] Anion Gap 13 5 - 15 [facility] 10/14/2024 4:02 PM EST [facility] Glucose 96 65 - 99 mg/dL 10/14/2024 4:02 PM EST [facility] Creatinine 1.17 0.60 - 1.30 mg/dL 10/14/2024 4:02 PM EST [facility] Calcium 9.6 8.6 - 10.5 mg/dL 10/14/2024 4:02 PM EST [facility] Total Protein 6.5 6.0 - 8.0 g/dL 10/14/2024 4:02 PM EST [facility] Albumin 4.1 3.5 - 5.2 g/dL 10/14/2024 4:02 PM EST [facility] Bilirubin, Total 0.8 0.2 - 1.2 mg/dL 10/14/2024 4:02 PM EST [facility] Alkaline Phosphatase 78 35 - 129 U/L 10/14/2024 4:02 PM EST [facility] AST 26 10 - 40 U/L 10/14/2024 4:02 PM EST [facility] ALT 22 10 - 40 U/L 10/14/2024 4:02 PM EST [facility] BUN 26(H) 7 - 23 mg/dL 10/14/2024 4:02 PM EST [facility] eGFR 63 >=60 mL/min/1. 73m2 [facility] MANUAL 10/14/2024 4:02 PM EST [facility] Comment:The estimated glomer ular filtration rate (eGFR) is calculated using a new formula developed by the NKF-ASN task force to eliminate race-based correction factors. The new formula uses serum/plasma creatinine, age, and gender to determine eGFR. A value below 60mls/min might indicate kidney disease and will be flagged. For additional information, see Jordy et al, Am J Kidney Dis. 2021;79(2):268- 288, A Unifying Approach for GFR estimation: Recommendations of the NKF-ASN Task Force on Reassessing the Inclusion of Race in Diagnosing Kidney Disease . Globulin, Total 2.4 2.1 - 4.2 g/dL [facility] MANUAL 10/14/2024 4:02 PM EST [facility] A/G Ratio 1.7 1.5 - 3.0 [facility] MANUAL 10/14/2024 4:02 PM EST [facility] Blood Structure of peripheral vein / Unknown Venipuncture / Unknown 10/14/2024 12:49 PM EST 10/14/2024 12:53 PM EST us Bg Clinton MD LAB BLOOD ORDERABLES Final Res ult [facility] [address] [place] [address], * Tissue Exam (10/14/2024 12:02 PM EST) Final Diagnosis Specimen #1 - Skin, Right Chest, Shave Biopsy: - 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 Note: Due to the transected nature of the specimen an invasive component cannot be excluded in the deeper tissue, clinical correlation is advised. 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 Note: Due to the transected nature of the specimen an invasive component cannot be excluded in the deeper tissue, clinical correlation is advised. [facility] MANUAL 10/16/2024 3:09 PM EST [facility] Clinical History Specimen 1: Favor SCC Favor SCC Specimen 2: Favor SCCis vs [place] Favor SCCis vs [place] [facility] MANUAL 10/16/2024 3:09 PM EST [facility] Gross Description 1. Skin, Right chest Received in formalin, labeled the patient's name, MRN, date of , and right chest , is a max-white, irregular skin shave (1.3 x 0.8 x 0.2 cm), which is remarkable for an ill-defined, irregular, max-white to max-brown, focally crusted, focally ulcerated lesion (1.0 x 0.8 cm), which comes within less than 0.1 cm of the nearest radial resection margin. The specimen is inked blue, trisected, and entirely submitted in cassette 1A. 2. Skin, Left frontal scalp Received in formalin, labeled the patient's name, MRN, date of , and left frontal scalp , is a max-white, irregular skin shave (0.9 x 0.6 x 0.1 cm), which is a markable for an ill-defined, irregular, max-white, markedly crusted, slightly raised lesion (0.9 x 0.6 cm), which comes within less than 0.1 cm of the nearest radial resection margin. The specimen is inked blue, trisected, and entirely submitted in cassette 2A. [facility] MANUAL 10/16/2024 3:09 PM EST [facility] Gross Description User Grossing complete by Bettina Calhoun on 10/14/2024 2:30 PM [facility] MANUAL 10/16/2024 3:09 PM EST [facility] Embedded Images [facility] MAN[facility] 10/16/2024 3:09 PM EST [facility] Resulting Agency Case was signed out at [facility], Department of Pathology, [employer] 3 CLIA [id number] [facility] MANUAL 10/16/2024 3:09 PM EST [facility] Report Header Surgical Pathology Report ? Case: [id number] ? Authorizing Provider: ??Bg Clinton MD ? Collected: ? 10/14/2024 1202 ? Ordering Location: ? [facility] ? Received: ?10/14/2024 1414 ? [facility] [place] ? Dermatology Clinic 4th ? Floor ? Pathologist: ? Philip Chang MD ? Specimens: ?? 1) - Skin, Right chest ? 2) - Skin, Left frontal scalp ? 10/16/2024 3:09 PM EST [facility] [employer] [facility] Skin Specimen from skin / Unknown 10/14/2024 12:02 PM EST 10/14/2024 2:14 PM EST Specimen from skin (specimen) Specimen from skin / Unknown 10/14/2024 12:02 PM EST 10/14/2024 2:14 PM EST us Bg Clinton MD LAB PATHOLOGY/CYTOLOGY ORDERAB LES Final Result Performing Organization Address City/State/[facility] Co de Phone Number [email or web address] [address] [place] [address], [facility] [address] [place] [address], from Last 3 Months Insurance MEDICARE [facility] SUPP Care Teams Interactive Developer Relationship Specialty Start Date End Date Irving Valentin [address] [place] [address] [place] [address] PCP - General Internal Medicine 09/03/23
--- OUTSIDE RECORDS SUMMARY | 2024-12-10 17:12 | XMS_ITS | Encounter Summary ---
Author Organization [facility] Address [address] [place] [address] Care Team Providers Care Head Grinder Name Role Phone Irving Valentin Primary Care Provider [phone] Encounter Details Date Type Department Care Team (Late st Contact Info) Description 10/15/2024 myChart Message [facility] [address]th [address] [place] [phone] Legger Press Operator: Bg Noland MD [address] [place] [phone] Methotrexate Social History Tobacco Use Types Packs/Day Years [...] Description 12/19/2024 1:00 PM EST Procedure visit [facility] 4th [address] [place] [phone] Legger Press Operator: Brock Goodman MD [address] [place] [phone] 01/26/2025 8:30 AM EDT Follow-Up [facility] 4th Floor [address] [facility], [place] [phone] Legger Press Operator: Bg Noland MD [address] [place] [address] documented as of this encounter Visit Diagnoses Not on filedocumented in this encounter Care Teams Head Grinder Relationship Specialty Start Date End Date Irving Valentin [address] [place] [address] [place] [address] PCP - General Internal Medicine 09/03/23 documented as of this encounter
--- OUTSIDE RECORDS SUMMARY | 2024-12-10 17:12 | XMS_ITS | Referral Summary ---
Author Organization [facility] Address [address] [place] [address] Care Team Providers Care Glass Robot Operator Name Role Phone Irving Valentin Primary Care Provider [phone] Encounters Date Type Department Care Team Description 10/22/2024 myChart Message [facility] 4th [address] [place] [phone] Pressfitter: Bg Noland MD Biopsy Results 10/21/2024 Telephone [facility] 4th [address] [place] [phone] Pressfitter: Haydee Fernandes LPN 10/15/2024 myChart Message [facility] [address]th [address] [place] [phone] Pressfitter: Bg Noland MD Methotrexate 10/14/2024 11:15 AM EST Follow-Up [facility] [address] [phone] Pressfitter: Bg Noland MD Dermal hypersensitivity reaction (Primary Dx); Neoplasm of uncertain behavior; High risk medication use 10/07/2024 myChart Message [facility] [address] [place] [phone] Pressfitter: Bg Noland MD Labwork before f/u alfonso from Last 3 Months Allergies Active Allergy Reactions Criticality Noted Date [...] on the same day each week. 10/15/20 24 Active Active Problems Problem Noted Date Diagnosed Date Change in bowel habits 11/23/2023 Diverticulosis of colon 11/23/2023 Dysphagia 11/23/2023 Esophageal dysphagia 11/23/2023 Gastroesophageal reflux disease 11/23/2023 Ingrowing nail 11/23/2023 Peptic ulcer disease 11/23/2023 Tinea unguium 11/23/2023 Hypertension 01/24/2023 Stage 3a chronic kidney disease 01/24/2023 Immunizations Name Administration Dates Next Due Covid-19, Pfizer, mRNA, Hall valent, PF 30 mcg/0.3 mL dose (for [...] Description 12/19/2024 1:00 PM EST Procedure visit [facility] 4th Floor [address] [facility], [place] [phone] Pressfitter: Brock Goodman MD [address] [place] [phone] 01/26/2025 8:30 AM EDT Follow-Up [facility] 4th Floor [address] [facility], [place] [phone] Pressfitter: Bg Noland MD [address] [place] [address] Procedures * Due to [place] state law, this organization might not be sharing negative HIV tests. Procedure Name Priority Date/Time Associated Diagnosis Comments CBC AUTO DIFFERENTIAL Routine 10/14/2024 12:49 PM EST High risk medication use COMPREHENSIVE METABOLIC PANEL Routine 10/14/2024 12:49 PM EST High risk medication use TISSUE EXAM Routine 10/14/2024 12:02 PM EST Neoplasm of uncertain behavior from Last 3 Months Results * Due to [place] state law, this organization might not be [...] - 0.50 10*3/uL 10/14/2024 3:50 PM EST [facility] Basophil # 0.10 0.00 - 0.20 10*3/uL 10/14/2024 3:50 PM EST [facility] nRBC % 0.0 /100 WBCs 10/14/2024 3:50 PM EST [facility] nRBC # <0.01 <0.01 10*3/uL 10/14/2024 3:50 PM EST [facility] Blood Structure of peripheral vein / Unknown Venipuncture / Unknown 10/14/2024 12:49 PM EST 10/14/2024 12:53 PM EST us Bg Clinton MD LAB BLOOD ORDERABLES Final Res ult Performing Organization Address City/State/RUST Co de Phone Number [facility] [address] [place] [phone], * (ABNORMAL) Comprehensive Metabolic Panel (10/14/2024 12:49 PM EST) NA 141 135 - 145 mmol/L 10/14/2024 4:02 PM EST [facility] K 3.5 3.5 - 5.3 mmol/L 10/14/2024 4:02 PM EST [facility] Cl 100 98 - 107 mmol/L 10/14/2024 4:02 PM EST [facility] CO2 28 22 - 32 mmol/L 10/14/2024 4:02 PM EST [facility] Anion Gap 13 5 - 15 [place] [facility] 10/14/2024 4:02 PM EST [facility] Glucose 96 65 - 99 mg/dL 10/14/2024 4:02 PM EST [facility] Creatinine 1.17 0.60 - 1.30 mg/dL 10/14/2024 4:02 PM EST [facility] Calcium 9.6 8.6 - 10.5 mg/dL 10/14/2024 4:02 PM EST [facility] Total Protein 6.5 6.0 - 8.0 g/dL 10/14/2024 4:02 PM EST [facility] Albumin 4.1 3.5 - 5.2 g/dL 10/14/2024 4:02 PM EST [facility] Bilirubin, Total 0.8 0.2 - 1.2 mg/dL 10/14/2024 4:02 PM EST [facility] Alkaline Phosphatase 78 35 - 129 U/L 10/14/2024 4:02 PM EST [facility] AST 26 10 - 40 U/L 10/14/2024 4:02 PM EST [facility] ALT 22 10 - 40 U/L 10/14/2024 4:02 PM EST [facility] BUN 26(H) 7 - 23 mg/dL 10/14/2024 4:02 PM EST [facility] eGFR 63 >=60 mL/min/1. 73m2 [facility] MANUAL 10/14/2024 4:02 PM EST [facility] Comment:The estimated glomer ular filtration rate (eGFR) is calculated using a new formula developed by the NKF-ASN task force to eliminate race-based correction factors. The new formula uses serum/plasma creatinine, age, and gender to determine eGFR. A value below 60mls/min might indicate kidney disease and will be flagged. For additional information, see Spence et al, Am J Kidney Dis. 2021;79(2):268- 288, A Unifying Approach for GFR estimation: Recommendations of the NKF-ASN Task Force on Reassessing the Inclusion of Race in Diagnosing Kidney Disease . Globulin, Total 2.4 2.1 - 4.2 g/dL [facility] MANUAL 10/14/2024 4:02 PM EST [facility] A/G Ratio 1.7 1.5 - 3.0 [facility] MANUAL 10/14/2024 4:02 PM EST [facility] CL[facility] LAB[facility] Blood Structure of peripheral vein / Unknown Venipuncture / Unknown 10/14/2024 12:49 PM EST 10/14/2024 12:53 PM EST us Bg Clinton MD LAB BLOOD ORDERABLES Final Res ult [facility] [address] [place] [address], * Tissue Exam (10/14/2024 12:02 PM EST) [...] the deeper tissue, clinical correlation is advised. [facility] MANUAL 10/16/2024 3:09 PM EST [facility] LAB[facility] Clinical History Specimen 1: Favor SCC Favor SCC Specimen 2: Favor SCCis vs [place] Favor SCCis vs AK [facility] MANUAL 10/16/2024 3:09 PM EST [facility] LAB[facility] Gross Description 1. Skin, Right chest Received in formalin, labeled the patient's name, MRN, date of , and right chest , is a mxa-white, irregular skin shave (1.3 x 0.8 x [...] trisected, and entirely submitted in cassette 2A. [facility] MANUAL 10/16/2024 3:09 PM EST [facility] Gross Description User Grossing complete by Bettina Calhoun on 10/14/2024 2:30 PM [facility] MANUAL 10/16/2024 3:09 PM EST [facility] Embedded Images [facility] MAN[facility] 10/16/2024 3:09 PM EST [facility] Resulting Agency Case was signed out at [facility], Department of Pathology, [employer] 3 CLIA [id number] [facility] MANUAL 10/16/2024 3:09 PM EST [facility] Report Header Surgical Pathology Report ? Case: [id number] ? Authorizing Provider: ??Bg Clinton MD ? Collected: ? 10/14/2024 1202 ? Ordering Location: ? [facility] ? Received: ?10/14/2024 1414 ? [facility] ? Dermatology Clinic 4th ? Floor ? Pathologist: ? Philip Chang MD ? Specimens: ?? 1) - Skin, Right chest ? 2) - Skin, Left frontal scalp ? 10/16/2024 3:09 PM EST [facility] Skin Specimen from skin / Unknown 10/14/2024 12:02 PM EST 10/14/2024 2:14 PM EST Specimen from skin (specimen) Specimen from skin / Unknown 10/14/2024 12:02 PM EST 10/14/2024 2:14 PM EST us Bg Clinton MD LAB PATHOLOGY/CYTOLOGY ORDERAB LES Final Result [facility] [address] [place] [address], [facility] [address] [place] [phone], from Last 3 Months Insurance MEDICARE [facility] Care Teams Glass Robot Operator Relationship Specialty Start Date End Date Irving Valentin [address] [place] [address] [place] [address] PCP - General Internal Medicine 09/03/23
--- OUTSIDE RECORDS SUMMARY | 2024-12-10 17:12 | XMS_ITS | Clinical Summary ---
Author Organization [facility] Address [address] [place] [address] Phone Care Team Providers Care Hogshead Head Matcher Name Role Phone Irving Valentin MD Primary Care Provider [phone] Allergies No known active allergies Medications allopurinol (ZYLOPRIM) 300 MG tablet Take 150 mg by mouth 1 (one) time each day Active aspirin (ST BRYCE) 81 MG EC tablet Take 81 mg by mouth 1 (one) time each day Active atorvastatin (LIPITOR) 40 MG tablet Take 40 mg by mouth 1 (one) time each day Active ibuprofen (ADVIL,MOTRIN) 200 MG tablet Take 200 mg by mouth every 6 (six) hours if needed for mild pain Active lisinopril 20 MG tablet Take 20 mg by mouth 1 (one) time each day Active cetirizine (ZyrTEC) 10 MG tablet Take 10 mg by mouth 1 (one) time each day Active furosemide (LASIX) 40 MG tablet Take 40 mg by mouth 1 (one) time each day Active acetaminophen (TYLENOL) 500 MG tablet Take 1,000 mg by mouth every 8 (eight) hours if needed for mild pain Active Active Problems Problem Noted Date Diagnosed Date Hypertension 01/24/2023 Stage 3a chronic kidney disease 01/24/2023 Disorder of kidney and/or ureter 01/23/2023 Resolved Problems Problem Noted Date Diagnosed Date Resolved Date Ingrowing nail 01/23/2023 01/23/2023 Tinea unguium 01/23/2023 01/23/2023 Immunizations Name Administration Dates Next Due Pfizer SARS-COV-2 09/22/2021,01/20/2021,12/30/19 21 Family History Medical History Relation Comments Cancer Brother Stomach cancer Cancer Mother Colon cancer Cancer Sister Colon cancer Relation Status Comments Brother Father Mother Sister Social History Tobacco Use Types Packs/Day Years Used Date Smoking Tobacco: Former Cigarettes Smokeless Tobacco: Never Tobacco Cessation:Counseling Given: Not Answered Alcohol Use Standard Drinks/Week Comments Never 0 (1 standard drink = 0.6 oz pur e alcohol) Sex and Gender Information Value Date Recorded Sex Assigned at Not on file Legal Sex Male 11:11 AM EST Gender Identity Not on file Sexual Orientation Not on file Last Filed Vital Signs Vital Sign Reading Time Taken Comments Blood Pressure 100/60 05/16/2023 3:53 PM EDT Pulse 85 05/16/2023 3:53 PM EDT Temperature - - Respiratory Rate - - Oxygen Saturation 95% 01/24/2023 3:42 PM EST Inhaled Oxygen Concentration - - Weight 107 kg (235 lb 6.4 oz) 05/16/2023 3:53 PM EDT Height - - Body Mass Index - - Plan of Treatment Health Maintenance Due Date Last Done Comments Pneumococcal Vaccine: 65+ Ye ars (1 of 2 - PCV) 1951 Influenza Vaccine (#1) 2024 Hepatitis B Vaccine Aged Out No longe r eligible based on patient's age to complete this topic Insurance MEDICARE [facility] Care Teams Hogshead Head Matcher Relationship Specialty Start Date End Date Irving Valentin MD [facility] [address] [place], [place] PCP - General Internal Medicine 12/19/22
[2024-12-10 17:50] LABS: Prostate Specific Antigen 1.91 ng/mL (<0.05-4.0)
== END 2024-12-10 14:43 | disposition home or self-care (01) ==
LOC: HO.LAB 14:42
PROVIDERS: PCP Internal Medicine; Visit Provider Nurse Practitioner Family
DX: Z12.5 Encounter for screening for malignant neoplasm of prostate (principal); R97.20 Elevated prostate specific antigen [PSA]
CPT/HCPCS: 36415; 84153

== ENCOUNTER 2024-12-17 10:25 | Outpatient (AMB) | payer MEDICARE, SELFPAY ==
--- NOTE | 2024-12-17 10:39 | A.OFFVIS_ITS ---
Intake Visit Reasons: 1y/PSA Intake Note: Patient is present for PSA Follow up Urology Med: Tamsulosin Antibiotic Allergy: None Blood Thinner: Aspirin Last PVR:27ml Todays PVR: 0ml Java Portal Developer Required: No Accompanied by: Self / Same As Patient Allergies allopurinol Adverse Reaction (Mild, Verified 12/17/24 10:46) Rash atorvastatin Adverse Reaction (Mild, Verified 12/17/24 10:46) Rash Medication List - Last Reconciled 12/17/24 by FEMI Young- aspirin 81 mg PO DAILY carvedilol (Coreg) 3.125 mg PO DAILY CPAP (CPAP Machine/Device) As directed diphenhydramine-acetaminophen 25-500 mg (Tylenol PM Extra Strength) 1 tab PO BEDTIME PRN folic acid 1 mg PO SUMOWETHFRSA@0900 furosemide 40 mg PO DAILY 90 days methotrexate sodium 15 mg PO TU@0900 omeprazole 40 mg PO DAILY@0630 [Shower chair As directed] tamsulosin 0.4 mg PO BEDTIME 90 days [Walker As directed] HPI Comments Details: Bryce Alvarez is a pleasant 79-year-old male patient of Dr. Valentin. He has a past medical history of hypertension, gastric ulcer, gout, hyperlipidemia, obesity, GEOVANNI, pulmonary hypertension, and renal insufficiency. He presents to the office today for a follow-up of his balanitis, elevated PSA, and urinary tract infections. In discussion with the patient today reports to be doing and feeling well. He denies having had any bothersome urinary issues since his last office visit here over a year ago. He discusses having had cholecystectomy with Dr. Rosenberg and has been recovering well. He discusses having stopped his Flomax as he did not feel he needed this medication anymore and has been urinating without difficulty. In office urinalysis results reviewed with the patient today. PVR 0 mL. Recent PSA results reviewed with the patient today as noted and trended below. When asked he denies incontinence, nocturia, hematuria, dysuria, foul smelling urine, changes to urinary stream, flank pain, fever, and or chills. He is happy with his current voiding parameters. He is enquiring follow-up on as needed basis. He otherwise offers no other issues or concerns at this time. PSAs are as follows: 09/05 1.6, 09/06 1.8, 09/07 1.5, 08/11 6.0, 12/12 1.2, 12/13 1.9 PFS Medical History Cholecystitis GEOVANNI (obstructive sleep apnea) Obesity (BMI 30.0-34.9) Renal insufficiency Hx of skin pruritus Gout Gastric ulcer Obesity Pulmonary hypertension Essential hypertension HLD (hyperlipidemia) Surgical History Hx of cholecystectomy H/O colonoscopy H/O foot surgery History of cataract surgery Family History Father No problems noted. Mother Colon cancer Sister Colon cancer Brother Stomach cancer Social History Household Members: None Housing: House Do you presently have visiting nurse or other home services: No Alcohol intake: never Comment: 2 MTHS AGO Patient Tobacco Use Status: Former Tobacco user e-Cigarette/Vaping Use: Never Used Second Hand Smoke Exposure: No Advance Directives Date on File: 08/23/20 service: No Current occupational status: retired Cognitive needs: No Hearing needs: No Vision needs: Yes Review of Systems Const Reports as per [facility] Eyes Reports no additional complaints ENT Reports no additional complaints Card Reports as per [facility] Resp Reports as per HPI GI Reports as per HPI Reports as per HPI Neuro Reports no additional complaints Psych Reports no additional complaints Endo Reports no additional complaints Jose Antonio/Lymph Reports no additional complaints Aller/Immun Reports no additional complaints Physical Exam Const General: cooperative, healthy appearing, comfortable, no acute distress, well developed, alert and awake Orientation/consciousness: patient oriented x3 Limitations: ambulation with cane HEENT Head: Yes normal to inspection, Yes normocephalic and Yes atraumatic Ears: hearing grossly normal bilaterally Eyes General: appearance normal, both eyes and all related structures Neck Neck: Yes normal visual inspection and Yes trachea midline Chest Chest palpation & inspection: normal inspection of the chest Resp Effort & Inspection: able to speak in complete sentences Cardio Rate: regular rate GI Inspection: Yes normal to inspection General: Yes no CVA tenderness Male General Exam: Yes normal external exam Penis: uncircumcised and other (penile gland inflamed with areas or redness.) Meatus: meatus normal Scrotum: scrotum normal Testes: Testes normal Back/Spine/Pelvis Back: no CVA tenderness Skin General skin exam: no rashes or lesions noted Neuro General: patient oriented x3 Extrem General: Yes normal to inspection Psych Appearance: grossly normal and well kempt Mental Status: mental status grossly normal Speech and movement: Clear speech present Affect: normal affect Attitude: cooperative Thought process: Normal thought process present Thought content: Normal thought content present Insight: Fair insight present (Psych) Judgement: Fair judgement present (Psych) Office Procedures Post Void Residual Post Residual Void Post Void Residual (PVR): 0 50403-Tapy Void Residual by ultrasound Results AMB Urinalysis, Automated UA Leukoctes 0 Maira/uL Last Edit by Rosa M Hough [facility] on 12/17/24 10:46 UA Nitrite Negative Last Edit by Rosa M Hough [facility] on 12/17/24 10:46 UA Urobilinogen 0.2 mg/dL Last Edit by Rosa M Hough [facility] on 12/17/24 10:4 6 UA Protein 15 mg/dL Last Edit by Rosa M Hough [facility] on 12/17/24 10:46 UA pH 5.5 Last Edit by Rosa M Hough [facility] on 12/17/24 10:46 UA Blood 0 Mundo/uL Last Edit by Rosa M Hough [facility] on 12/17/24 10:46 UA Specific Protection 1.020 Last Edit by Rosa M Hough [facility] on 12/17/24 10: 46 UA Ketone Negative Last Edit by Rosa M Hough [facility] on 12/17/24 10:46 UA Bilirubin 1 mg/dL Last Edit by Rosa M Hough [facility] on 12/17/24 10:46 UA Glucose 0 mg/dL Last Edit by Rosa M Hough [facility] on 12/17/24 10:46 Assessment & Plan Assessment & Plan (1) Balanitis: Code(s): N48.1 - Balanitis Category: Medical (2) Elevated PSA: Code(s): R97.20 - Elevated prostate specific antigen [PSA] Category: Medical Plan In office urinalysis results reviewed with the patient today; as noted above. PVR 0 mL. Stop Flomax. Patient currently denies any bothersome urinary issues or concerns. He reports be happy with current voiding parameters. Recent PSA results reviewed with the patient today; as noted above. Continue to follow-up with PCP for annual PSAs Follow-up PRN Orders: Orders AMB Post Void Residual by ultrasound Today N13.8 - Other obstructive and reflux uropathy, N40.1 - Benign prostatic hyperplasia with lower urinary tract symptoms AMB Urinalysis Automated Today Z13.9 - Encounter for screening, unspecified Medications: Discontinued tamsulosin Discontinued Reason: Patient Completed Course 0.4 mg PO BEDTIME 90 days 90 caps 3RF Patient Instructions: The patient had an opportunity to ask questions regarding the treatment plan. All questions were answered. Physical exam, labs, and imaging were discussed and reviewed in detail. As well as risks, benefits, and discussion of treatment choices. No major barriers to understanding were identified. The patient expressed understanding and agreement with the above treatment plan. The patient was made aware they should contact our office by phone for worsening of their current condition, the appearance of new symptoms, or with any questions or concerns. Compliance is encouraged with any medications and follow up testing that is ordered. It is a privilege to be allowed the opportunity to participate in? your urological care.? Again, if you have any questions or concerns If you have any questions or concerns please do not hesitate to contact me. The office is [phone]. This note is constructed using voice recognition software. While every effort has been made to ensure accuracy material control associate errors may have been included. Yours sincerely, MAY Young Coding Level of Care Code Est Pt Level 3 (42774) Diagnoses Balanitis N48.1 Elevated PSA R97.20 CPT Codes Post Residual Void - PVR CPT Code: 85594-Qdfd Void Residual by ultrasound ([id number])
--- OUTSIDE RECORDS SUMMARY | 2024-12-17 12:31 | XMS_ITS ---
Author Organization [facility] Address [address] [place] [address] Care Team Providers Care Internet Designer Name Role Phone Irving Valentin MD Primary Care Provider UnavailSurinder Almonte [phone] REASON FOR VISIT RS 12/19/24 APPT Encounters Encounter Location Date Provider Diagnosis [address] [phone] 12/15/2024 Surinder Brar Plan Of Treatment Next Appt Details Provider Name:Surinder Brar , 02/06/2025 12:30:00 PM, [address] [place] [address], [phone], Progress Notes * Bryce MEJIADOB:1945 ([age] yo M)Acc No.[id number]:12/15/2024 Patient:?Bryce MEJIA :1945???Age:79 Y???Sex:Male Address:[address] [place] [address] * true * Date:? Generated for Printi ng/Faxing/eTransmitting on:?12/17/2024 12:31 PM EST
--- OUTSIDE RECORDS SUMMARY | 2024-12-17 12:31 | XMS_ITS ---
Author Organization [facility] Address [address] [facility] [address] [place] [phone] Care Team Providers Care Noise Abatement Engineer Name Role Phone Irving Valentin MD Primary Care Provider Tre Guidry [phone] Encounters Encounter Location Date Provider Diagnosis [facility] [address] [facility] [address] [place] [phone] 12/13/2023 Tre Moody PLAN OF TREATMENT No Information
--- OUTSIDE RECORDS SUMMARY | 2024-12-17 12:31 | XMS_ITS | Patient Health Record ---
Author Organization [facility] Address [address] [facility] [place] [address] Care Team Providers Care Hardwood Floor Installation Helper Name Role Phone Homero BUCK, Irving Primary Care Provider Surinder Arriola Unavailable [phone] Allergies No Known Allergies Reason For Referral No Information Medications Medication SIG (Take, Route, Frequency, Duration) Notes Start Date End Date Status Tamsulosin HCl 0.4 MG 1 capsule Orally O nce a day Not-Taking Allopurinol 150mg Orally No t-Taking Atorvastatin Calcium 40 MG Orally Not-Taking Methotrexate Sodium 2.5 MG Oral for 28 Days Active Furosemide Active Carvedilol Active aspirin baby Active Flomax Not-Taking Omeprazole Active Rosuvastatin Calcium Not-Taking Folic Acid Active Ciclopirox Olamine 0.77 % 1 application to affected area Externally Twice a day for 30 days Not-Taking Lisinopril-hydroCHLOROthi azide Not-Taking Lisinopril 20 MG Orally Not -Taking Immunizations Vaccine Route Administration Date Status Comme nts COVID-19 Pfizer BioNTech Vaccine Unknown 09/22/2021 Administered 1st 12/31/2020 2nd 01/20/2021 Social History Tobacco Use: Social History Observation Description Date Details (start date - stop date) Former Smoker NA - NA Tobacco Use/Smoking Question Answer Notes Are you a: former smoker Additional Findings: Tobacco Non-User Current no n-smoker Alcohol Screen Question Answer Notes Did you have a drink contain ing alcohol in the past year? Yes How often did you have a dri nk containing alcohol in the past year? Monthly or less (1 point) Points 1 Interpretation Negative Tobacco use other than smoking: Question Answer Notes Are you an other tobacco user? No Problems Problem Type SNOMED Code ICD Code Onset Dates Problem Status W/U Status Risk Notes Problem Atherosclerosis of [place] arteries of the extremities (849374284250869) Atherosclerosis of [place] artery of both lower extremities, with unspecified presence of clinical manifestation (I70.203) Active confirmed Vital Signs Blood pressure diastolic 80 mm Hg 09/19/2024 Height 5 ft 11 in in 09/19/2024 Blood pressure systolic 120 mm Hg 09/19/2024 Weight 220 lbs 09/19/2024 BMI 30.68 kg/m2 09/19/2024 Procedures Procedure Date Ordered Date Performed Result Body Sit e 52746-XFOLTUK NAIL, 6 OR MORE 03/14/2024 N/A 20648-Wralrfrc Plate 03/14/2024 N/A 27801-SKWSDQE NAIL, 6 OR MORE 06/13/2024 N/A 51561-Gaejgbga Plate 06/13/2024 N/A 80502-MOWK SKIN LESIONS, 2 TO 4 06/13/2024 N/A 21830-FYACUBY NAIL, 6 OR MORE 09/19/2024 N/A 94419-Bvldzvap Plate 09/19/2024 N/A 69218-LUQJ SKIN LESIONS, 2 TO 4 09/19/2024 N/A Encounters Encounter [facility] Date [facility] [address] [facility]/14/[facility]24 Surinder Brar Tinea unguium B35.1 ; Pain in right toe(s) M79.674 ; Pain in left toe(s) M79.675 and Ingrown nail L60.0 [facility] [address] 06/13/2024 Surinderjeancarlos TraoreZonia Atherosclerosis of [place] artery of both lower extremities, with unspecified presence of clinical manifestation I70.203 ; Tinea unguium B35.1 ; Pain in right toe(s) M79.674 ; Pain in left toe(s) M79.675 and Ingrown nail L60.[address] [address] 09/19/2024 Surinder Zonia Atherosclerosis of [place] artery of both lower extremities, with unspecified presence of clinical manifestation I70.203 ; Tinea unguium B35.1 ; Pain in right toe(s) M79.674 ; Pain in left toe(s) M79.675 and Ingrown nail L60.0 [facility] [address] [address] 12/15/2024 Surinder Brar Assessments Encounter Date Diagnosis (ICD Code) Assessment Notes Treatment Notes Treatment Clinical Notes Section Notes 03/14/2024 Tinea unguium (ICD-10 - B35.1) 03/14/2024 Pain in right toe(s) (ICD-10 - M79.674) 06/13/2024 Tinea unguium (ICD-10 - B35.1) 06/13/2024 Atherosclerosis of [place] artery of both lower extremities, with unspecified presence of clinical manifestation (ICD-10 - I70.203) 09/19/2024 Tinea unguium (ICD-10 - B35.1) 09/19/2024 Atherosclerosis of [place] artery of both lower extremities, with unspecified presence of clinical manifestation (ICD-10 - I70.203) 09/19/2024 Pain in right toe(s) (ICD-10 - M79.674) 06/13/2024 Pain in right toe(s) (ICD-10 - M79.674) 03/14/2024 Pain in left toe(s) (ICD-10 - M79.675) 09/19/2024 Pain in left toe(s) (ICD-10 - M79.675) 06/13/2024 Pain in left toe(s) (ICD-10 - M79.675) 03/14/2024 Ingrown nail (ICD-10 - L60.0) 06/13/2024 Ingrown nail (ICD-10 - L60.0) 09/19/2024 Ingrown nail (ICD-10 - L60.0) Plan Of Treatment Pending Test Test Name Order Date 61642-MLSRHWI NAIL, 6 OR MORE 02/23/2017 99037-XYCKPAD NAIL, 6 OR MORE 06/01/2017 18743-QHJXRRC NAIL, 6 OR MORE 08/31/2017 75165-DYGXKSX NAIL, 6 OR MORE 11/23/2017 22741-ZIYNBBE NAIL, 6 OR MORE 02/22/2018 88210-ZNJVEFB NAIL, 6 OR MORE 05/24/2018 48125-WNCRJHV NAIL, 6 OR MORE 08/23/2018 98701-ASZWSSM NAIL, 6 OR MORE 12/03/2018 50170-WZBXXEL NAIL, 6 OR MORE 03/07/2019 70174-OSECHJV NAIL, 6 OR MORE 06/13/2019 80237-FZDPQFS NAIL, 6 OR MORE 10/03/2019 65563-NONBXUR NAIL, 6 OR MORE 01/02/2020 78252-QTSWTAQ NAIL, 6 OR MORE 04/09/2020 08222-VLMSPZD NAIL, 6 OR MORE 07/02/2020 38888-TKYEHLX NAIL, 6 OR MORE 10/08/2020 50201-KZUGAEE NAIL, 6 OR MORE 01/07/2021 05485-GXHNGCP NAIL, 6 OR MORE 05/10/2021 94887-QZOGQBU NAIL, 6 OR MORE 08/09/2021 44990-YFSLEGH NAIL, 6 OR MORE 11/22/2021 42528-ANJJXJP NAIL, 6 OR MORE 02/28/2022 75366-CVYCSTF NAIL, 6 OR MORE 07/25/2022 57258-FCKEDLI NAIL, 6 OR MORE 11/03/2022 45981-XDOGXRY NAIL, 6 OR MORE 02/09/2023 51858-GYVWAZF NAIL, 6 OR MORE 05/08/2023 91064-IMUQLFK NAIL, 6 OR MORE 08/24/2023 90228-OCXFXAQ NAIL, 6 OR MORE 12/11/2023 20188-UHIOHAU NAIL, 6 OR MORE 03/14/2024 84339-ZPLJTBO NAIL, 6 OR MORE 06/13/2024 16805-XFZMIYU NAIL, 6 OR MORE 09/19/2024 68640-Wqurykbw Plate 09/19/2024 68522-Rakgdxtm Plate 06/13/2024 91891-Bdhnjgah Plate 03/14/2024 09373-Zewtmqch Plate 12/11/2023 67091-Laazbjzp Plate 08/24/2023 82581-Zvptxnxy Plate 05/08/2023 08846-Jzpgfner Plate 02/09/2023 86081-Okcllukc Plate 11/03/2022 37005-Ctmecuhu Plate 07/25/2022 15672-Rbncwtlx Plate 02/28/2022 42191-Bwzuliiu Plate 11/22/2021 82579-Cmuyjowd Plate 08/09/2021 36839-Bfjhrlgu Plate 05/10/2021 01586-Fvgapjae Plate 01/07/2021 34381-Awwktkuc Plate 10/08/2020 15377-Nfonoatr Plate 07/02/2020 54118-Hfaktmrf Plate 04/09/2020 71639-Vueppgkf Plate 01/02/2020 93546-Smvukxkn Plate 10/03/2019 37718-Mxdcpfir Plate 06/13/2019 43755-Grhkibcx Plate 08/23/2018 78204-Cmcnxmtd Plate 12/03/2018 02002-Hrlewfgp Plate 03/07/2019 62828-Wcnthjcy Plate 02/22/2018 66515-Grhoeauf Plate 05/24/2018 60789-Lnxqeqkc Plate 08/31/2017 56386-Bzkioymn Plate 11/23/2017 70517-Cybmpzql Plate Each Additional 04/2018 32663-Elxioahw Plate Each Additional 03/2018 56191-Kkkvungz Plate Each Additional 81186-Pzjxngzv Plate Each Additional 04/2018 27160-Dvwpufhn Plate Each Additional 34076-Pypdojid Plate Each Additional 03/2018 54691-Miaeeajl Plate Each Additional 07500-Dnlfjipw Plate Each Additional 75790-Enjxdril Plate Each Additional 51081-Dwrkirdi Plate Each Additional 14049-Rizxvelj Plate Each Additional 77484-Xhnmalno Plate Each Additional 31126-Mtvydyzx Plate Each Additional 42319-Mwfvhsnh Plate Each Additional 27753-Uoufkfoa Plate Each Additional 00347-Gomigmnj Plate Each Additional 87253-Mdxzmshn Plate Each Additional 02/2022 57475-Lmrinhhc Plate Each Additional 10/2022 05736-GWHZ SKIN LESIONS, 2 TO 4 06/13/20 14838-OJMG SKIN LESIONS, 2 TO 4 09/19/20 Next Appt Details Provider Name:Surinder Brar , 02/06/2025 12:30:00 PM, [address] [place], [address], Insurance Providers Payer Name Payer Address Payer Phone Subscriber Number Group Number Insured Name Patient Relationship to Insured Coverage Start Date Coverage End Date Medicare National Govt [employer] [facility] [address] [place] [address] [id number] Bryce Yarbrough Self - patient is the insured 8 [employer] [address] [place] [address] [id number] Bryce Yarbrough Self - patient is the insured Medical (General) History Medical History History ICD Code Cataracts Arthritis Gout Scarlet fever Stomach ulcer Measles Mumps Chicken pox Joint implants/screws Hypertension Prostate CAD Pain in Joints rash sleep apnea Surgical History Surgery Date(Month/Year) ankle surgery colonoscopy Gall bladder 08/28/2024 Hospitalization History Reason Date(Month/[place] [facility] [place] bladder remove d 08/28/2024-
--- OUTSIDE RECORDS SUMMARY | 2024-12-17 12:31 | XMS_ITS | Patient Health Record ---
Author Organization [facility] Address [address] [place] [address] Care Team Providers Care Seam Rubber Name Role Phone Irving Valentin MD Primary Care Provider Tre Guidry Unavailable [phone] ALLERGIES No Known Allergies REASON FOR REFERRAL No Information MEDICATIONS Medication SIG (Take, Route, Frequency, Duration) Notes Start Date End Date Status Omeprazole 40 MG TAKE ONE CAPSULE BY MOUTH IN THE MORNING upon awakening and take 1 capsule at 5pm or 6pm (2 capsules daily) for 30 Active Aspirin 81 Active Acetaminophen 500 MG 1 capsule as needed Orally every 6 hrs Active Carvedilol 3.125 MG Oral for 90 Active Furosemide 40 MG Oral for 30 A ctive Tamsulosin HCl 0.4 MG Oral for 90 Active Allopurinol 300 MG 1/2 tablet Orally On ce a day Active Ibuprofen 200 MG 1 tablet with food o r milk as needed Orally as needed Not-T aking IMMUNIZATIONS Vaccine Route Administration Date Status Comme nts Flu vaccine no Preserv 3 and > Unknown 10/13/2015 Admin istered Influenza Unknown 09/04/2022 Administered SOCIAL HISTORY Sex Assigned At : Social History Observation Description Sex Assigned At Unknown PROBLEMS Problem Type ICD Code Onset Dates Problem Status W/U Status Risk SNOMED Code Notes Problem Encounter for screening for malignant neoplasm of colon (Z12.11) Active confirmed 856307382 Problem History of adenomatous polyp of colon (Z86.010) Active confirmed 104615535 Problem Change in bowel habits (R19.4) Active confirmed 58480346 Problem Encounter for screening for malignant neoplasm of rectum (Z12.12) Active confirmed Screening for malignant neoplasm of rectum (920190472) Problem Dysphagia (R13.10) Active confirmed Dys phagia (57791362) Problem Gastroesophageal reflux disease without esophagitis (K21.9) Active confirmed 943405573 Problem Peptic ulcer disease (K27.9) Active confirmed 06119733 Problem NSAID long-term use (Z79.1) Active confirmed 160093167 Problem Diverticulosis of colon (K57.30) Active confirmed Diverticulosi s of colon (106998077) Problem Gastroesophageal reflux disease, unspecified whether esophagitis present (K21.9) Active confirmed 402788834 Problem Esophageal dysphagia (R13.19) Active confirmed 69486411 VITAL SIGNS Temperature 97.5 degrees Fahrenheit 02/05/2024 Blood pressure diastolic 00 mm Hg 02/05/2024 Height 70.25 in 02/05/2024 Blood pressure systolic 00 mm Hg 02/05/2024 Weight 222 lbs 02/05/2024 BMI 31.62 kg/m2 02/05/2024 Encounters Encounter Location Date Provider Diagnosis [facility] [address] [place] [phone] 02/05/2024 Tre Moody Gastroesophageal ref lux disease, unspecified whether esophagitis present K21.9 and Gastroesophageal reflux disease without esophagitis K21.9 [facility] [address] [place] [phone] 01/29/2024 Tre Moody ASSESSMENTS Encounter Date Diagnosis Assessment Notes Treatment Notes Treatment Clinical Notes 02/05/2024 Gastroesophageal ref lux disease without esophagitis (ICD-10 - K21.9) 02/05/2024 Gastroesophageal ref lux disease, unspecified whether esophagitis present (ICD-10 - K21.9) 02/05/2024 Other Use TUMS as needed for any nausea or indigestion. Call me if problems PLAN OF TREATMENT Pending Test Test Name Order Date CELIAC PANEL #10 01/23/2023 XR BARIUM SWALLOW-ESOPHAGUS 11/28/2023 Future Test Test Name Order Date COLONOSCOPY 09/05/2016 COLONOSCOPY 01/23/2023 UPPER GI ENDOSCOPY [place] DILATION OF ESOPH 09/27/2023 Insurance Providers Payer Name Payer Address Payer Phone Subscriber Number Group Number Insured Name Patient Relationship to Insured Coverage Start Date Coverage End Date MEDICARE OF [place] [employer] [address] [place] [id number] BLAZE MEJIA Self - patient is the insured [employer] [address] [place] [phone] [id number] BLAZE MEJIA - patient is the insured MEDICAL (GENERAL) HISTORY Medical History History ICD Code Small tubular adenomas remov ed in 2002 and in July 2011; he had a negative colonoscopy in 2005 with me and a negative colon[place] [address] Mast; he does have diverticulosis and internal hemorrhoids Gastric ulcer in 1993--EGD--biopsies wer e neg. for H.pylori Denies NV,DM,CVA,Lung disease,renal dise ase HTN Gout Reported bleeding duodenal ulcer in the Negative screening colonoscopy in 2016 Pruritic skin rash followed by Dr. Thomason from dermatology as of the 01/2023 OV Renal insufficiency--seeing Dr. Barnard-- 01/24/2023 Sleep apnea-using CPAP Neg.Nuclear med ETT with Dr. Atkins at [facility] summer 2022 Neg. colonoscopy 03/2023 Upper endoscopy in September 2023 revealed a small hiatal hernia but no evidence of any esophagitis, esophageal stricture, nor esophageal ring. I did use a 20 mm balloon to dilate the gastroesophageal junction without any real appreciable effect. Proximal esophageal biopsies were negative for eosinophilic esophagitis. Barium swallow in November of 2023 revealed a small Zenker's diverticulum and some esophageal dysmotility Surgical History Surgery Date(Month/Year) Right heel surgery. squamous cell carcinoma
--- OUTSIDE RECORDS SUMMARY | 2024-12-17 12:32 | XMS_ITS | Clinical Summary ---
Author Organization [facility] Address [address] [place] [address] Care Team Providers Care Transmission Builder Name Role Phone Irving Valentin Primary Care Provider [phone] Allergies Active Allergy Reactions Criticality Noted Date [...] Department Care Team Description 10/22/2024 myChart Message [facility] [address] [place] [phone] Handbag Framer: Bg Noland MD Biopsy Results 10/21/2024 Telephone [facility] [address] [place] [phone] Handbag Framer: Haydee Fernandes LPN 10/15/2024 myChart Message [facility] [address] [place] [phone] Handbag Framer: Bg Noland MD Methotrexate 10/14/2024 11:15 AM EST Follow-Up [facility] [address] [place] [phone] Handbag Framer: Bg Noland MD Dermal hypersensitivity reaction (Primary Dx); Neoplasm of uncertain behavior; High risk medication use 10/07/2024 myChart Message [facility] [address] [phone] Handbag Framer: Bg Noland MD Labwork before f/u alfonso from Last 3 Months Immunizations Name Administration Dates Next Due Covid-19, Pfizer, mRNA, Levy valent, PF 30 mcg/0.3 mL dose (for [...] Description 12/19/2024 1:00 PM EST Procedure visit [facility] 4th Floor [address] [facility] [place] [address] Handbag Framer: Brock Goodman MD [address] [place] [phone] 01/26/2025 8:30 AM EDT Follow-Up [facility] 4th Floor [address] [facility], [place] [phone] Handbag Framer: Bg Noland MD [address] [place] [address] Health Maintenance Due Date Last Done Comments [...] complete this topic Procedures * Due to [place] state law, this organization might not be sharing negative HIV tests. Procedure Name Priority Date/Time Associated Diagnosis Comments CBC AUTO DIFFERENTIAL Routine 10/14/2024 12:49 PM EST High risk medication use COMPREHENSIVE METABOLIC PANEL Routine 10/14/2024 12:49 PM EST High risk medication use TISSUE EXAM Routine 10/14/2024 12:02 PM EST Neoplasm of uncertain behavior from Last 3 Months Results * Due to [place] state law, this organization might not be [...] MD LAB BLOOD ORDERABLES Final Res ult [facility] [address] [place] [address], * (ABNORMAL) Comprehensive Metabolic Panel (10/14/2024 12:49 PM EST) NA 141 135 - 145 mmol/L 10/14/2024 4:02 PM EST [facility] K 3.5 3.5 - 5.3 mmol/L 10/14/2024 4:02 PM EST [facility] Cl 100 98 - 107 mmol/L 10/14/2024 4:02 PM EST [facility] CO2 28 22 - 32 mmol/L 10/14/2024 4:02 PM EST [facility] Anion Gap 13 5 - 15 [place] MANUAL 10/14/2024 4:02 PM EST [facility] Glucose 96 65 - 99 mg/dL 10/14/2024 4:02 PM EST [facility] Creatinine 1.17 0.60 - 1.30 mg/dL 10/14/2024 4:02 PM EST [facility] Calcium 9.6 8.6 - 10.5 mg/dL 10/14/2024 4:02 PM EST [facility] Total Protein 6.5 6.0 - 8.0 g/dL 10/14/2024 4:02 PM EST [facility] Albumin 4.1 3.5 - 5.2 g/dL 10/14/2024 4:02 PM EST [facility] Bilirubin, Total 0.8 0.2 - 1.2 mg/dL 10/14/2024 4:02 PM EST [facility] Alkaline Phosphatase 78 35 - 129 U/L 10/14/2024 4:02 PM EST [facility] AST 26 10 - 40 U/L 10/14/2024 4:02 PM EST [facility] ALT 22 10 - 40 U/L 10/14/2024 4:02 PM EST [facility] BUN 26(H) 7 - 23 mg/dL 10/14/2024 4:02 PM EST [facility] eGFR 63 >=60 mL/min/1. 73m2 [facility] [[email or web address] MANUAL 10/14/2024 4:02 PM EST [facility] Comment:The estimated glomer [...] Globulin, Total 2.4 2.1 - 4.2 g/dL [facility] [[email or web address]] MANUAL 10/14/2024 4:02 PM EST [facility] A/G Ratio 1.7 1.5 - 3.0 [facility] [[email or web address] MANUAL 10/14/2024 4:02 PM EST [facility] Blood Structure of peripheral vein / Unknown Venipuncture / Unknown 10/14/2024 12:49 PM EST 10/14/2024 12:53 PM EST us Bg Clinton MD LAB BLOOD ORDERABLES Final Res ult [facility] [address] [place] [address], * Tissue Exam (10/14/2024 12:02 PM EST) [...] the deeper tissue, clinical correlation is advised. [facility] [[email or web address] MANUAL 10/16/2024 3:09 PM EST [facility] Clinical History Specimen 1: Favor SCC Favor SCC Specimen 2: Favor SCCis vs [place] Favor SCCis vs AK [facility] [[email or web address] MANUAL 10/16/2024 3:09 PM EST [facility] Gross Description 1. Skin, [...] trisected, and entirely submitted in cassette 2A. [facility] [[email or web address]] MANUAL 10/16/2024 3:09 PM EST [facility] Gross Description User Grossing complete by Bettina Calhoun on 10/14/2024 2:30 PM [facility] [[email or web address]] MANUAL 10/16/2024 3:09 PM EST [facility] Embedded Images [facility] MANUAL 10/16/2024 3:09 PM EST [facility] Resulting Agency Case was signed out at [facility], Department of Pathology, [employer] 3 CLIA [id number] [facility] [[email or web address]] MANUAL 10/16/2024 3:09 PM EST [facility] Report Header Surgical Pathology Report ? Case: [id number] ? Authorizing Provider: ??Bg Clinton MD ? Collected: ? 10/14/2024 1202 ? Ordering Location: ? [facility] ? Received: ?10/14/2024 1414 ? [place] [place] ? Dermatology Clinic 4th ? Floor ? Pathologist: ? Philip Chang MD ? Specimens: ?? 1) - Skin, Right chest ? 2) - Skin, Left frontal scalp ? 10/16/2024 3:09 PM EST [facility] Skin Specimen from skin / Unknown 10/14/2024 12:02 PM EST 10/14/2024 2:14 PM EST Specimen from skin (specimen) Specimen from skin / Unknown 10/14/2024 12:02 PM EST 10/14/2024 2:14 PM EST us Bg Clinton MD LAB PATHOLOGY/CYTOLOGY ORDERAB LES Final Result Performing Organization Address City/State/[facility] Co de Phone Number [facility] [address] [place] [address], [facility] [address] [place] [address], from Last 3 Months Insurance MEDICARE [facility] SUPP Care Teams Transmission Builder Relationship Specialty Start Date End Date Irving Valentin [address] [place] [address] [place] [address] PCP - General Internal Medicine 09/03/23
--- OUTSIDE RECORDS SUMMARY | 2024-12-17 12:32 | XMS_ITS | Encounter Summary ---
Author Organization [facility] Address [address] [place] [address] Care Team Providers Care Nozzle Cement Sprayer Helper Name Role Phone Irving Valentin Primary Care Provider Encounter Details Date Type Department Care Team (Late st Contact Info) Description 10/22/2024 myChart Message [facility] 4th [address] [place] [phone] Unified Communications Architect: Bg Noland MD [address] [place] [phone] Biopsy Results Social History Tobacco Use Types [...] Description 12/19/2024 1:00 PM EST Procedure visit [facility] 4th Floor [address] [place] [phone] Unified Communications Architect: Brock Goodman MD [address] [place] [phone] 01/26/2025 8:30 AM EDT Follow-Up [facility] 4th Floor [address] [facility], [place] [phone] Unified Communications Architect: Bg Noland MD [address] [place] [address] documented as of this encounter Visit Diagnoses Not on filedocumented in this encounter Care Teams Nozzle Cement Sprayer Helper Relationship Specialty Start Date End Date Irving Valentin [address] [place] [address] [place] [address] PCP - General Internal Medicine 09/03/23 documented as of this encounter
--- OUTSIDE RECORDS SUMMARY | 2024-12-17 12:32 | XMS_ITS ---
Author Organization [facility] Address [address] [place] [address] Care Team Providers Care Barrel Raiser Helper Name Role Phone Irving Valentin MD Primary Care Provider Unavaila Tre Brewster [phone] REASON FOR VISIT reflux Encounters Encounter Location Date Provider Diagnosis [facility] [address] [facility] [address] [place] [address] 01/29/2024 Tre Moody PLAN OF TREATMENT No Information
--- OUTSIDE RECORDS SUMMARY | 2024-12-17 12:32 | XMS_ITS | Clinical Summary ---
Author Organization [facility] Address [address] [place] [address] Phone Care Team Providers Care Clinic Mgr Name Role Phone Irving Valentin MD Primary Care Provider [phone] Allergies No known active allergies Medications allopurinol [...] age to complete this topic Insurance MEDICARE [facility] MEDICARE [facility] Care Teams Clinic Mgr Relationship Specialty Start Date End Date Irving Valentin MD [facility] [address] [place], [place] PCP - General Internal Medicine 12/19/22
--- OUTSIDE RECORDS SUMMARY | 2024-12-17 12:32 | XMS_ITS ---
Author Organization [facility] Address [address] [place] [address] Care Team Providers Care Planetarium Technician Name Role Phone Irving Valentin MD Primary Care Provider Unavaila Surinder Sierra Unavailable [phone] REASON FOR VISIT At Risk Footcare, Painful Nail(s) aggravated by shoes and causing difficulty standing/walking., Ingrown Nail Medications Medication SIG (Take, Route, Frequency, Duration) Notes Start Date End Date Status Flomax Not-Taking Rosuvastatin Calcium Not-Taking Ciclopirox Olamine 0.77 % 1 application to affected area Externally Twice a day for 30 days Not-Taking Lisinopril-hydroCHLOROthi azide Not-Taking Lisinopril 20 MG Orally Not -Taking Tamsulosin HCl 0.4 MG 1 capsule Orally O nce a day Not-Taking Allopurinol 150mg Orally No t-Taking Atorvastatin Calcium 40 MG Orally Not-Taking Methotrexate Sodium 2.5 MG Oral for 28 Days Active Furosemide Active Carvedilol Active aspirin baby Active Omeprazole Active Folic Acid Active Social History Tobacco Use: Social History Observation [...] Are you an other tobacco user? No Vital Signs Height 5 ft 11 in in 09/19/2024 Weight 220 lbs 09/19/2024 BMI 30.68 kg/m2 09/19/2024 Blood pressure systolic 120 mm Hg 09/19/20 24 Blood pressure diastolic 80 mm Hg 024 Procedures Procedure Date Ordered Date Performed Result Body Sit e 38634-CDNGZDZ NAIL, 6 OR MORE 09/19/2024 N/A 32468-Zucfimjq Plate 09/19/2024 N/A 39557-IGHW SKIN LESIONS, 2 TO 4 09/19/2024 N/A Encounters Encounter Location Date Provider Diagnosis [facility] [address] [place] [address] 09/19/2024 Surinderjeancarlos Knightier Atherosclerosis of [place] artery of both lower extremities, with unspecified presence of clinical manifestation I70.203 ; Tinea unguium B35.1 ; Pain in right toe(s) M79.674 ; Pain in left toe(s) M79.675 and Ingrown nail L60.0 Assessments Encounter Date Diagnosis (ICD Code) Assessment Notes Treatment Notes Treatment Clinical Notes Section Notes 09/19/2024 Atherosclerosis of [place] artery of both lower extremities, with unspecified presence of clinical manifestation (ICD-10 - I70.203) 09/19/2024 Tinea unguium (ICD-10 - B35.1) 09/19/2024 Pain in right toe(s) (ICD-10 - M79.674) 09/19/2024 Pain in left toe(s) (ICD-10 - M79.675) 09/19/2024 Ingrown nail (ICD-10 - L60.0) Plan Of Treatment Pending Test Test Name Order Date [id number]-VBFBFBV NAIL, 6 OR MORE 09/19/2024 14618-Zpponjyk Plate 09/19/2024 56985-KRNA SKIN LESIONS, 2 TO 4 09/19/20 24 Next Appt Details Follow Up: prn, Reason: Provider Name:Surinder Adams Brar , 02/06/2025 12:30:00 PM, [address] [place] [address], [phone], Procedure Notes * Category Sub-Category Detail Notes Nail Avulsion Procedure A fine sterile e levator was placed between the eponychium, nail fold, and nail plate to separate the structures. A sterile nail splitter, and/or sterile 316 blade, was then used to longitudinally section the nail along its entire length through the eponychium to the area under the nail fold. The offending portion of nail was from the nail bed with a rolling action and then removed with a hemostat. No underlying bone was identified. There was minimal bleeding as hemostasis was achieved through the temporary use of either a digital tourniquet or the aforementioned local with epinephrine. A bacitracin sterile dressing was applied. Local wound aftercare instructions were discussed and dispensed. The patient was informed of both conservative and future surgical procedures to prevent recurrence. Tylenol or Motrin was recommended for pain or discomfort (25207) , CIRCULATION: Pt was advised as to the risk of delayed or nonhealing due to circulation. Pt is to call the office with any questions, concerns, or complications Anesthesia 2cc of 1 percent Lid ocaine Plain local anesthesic utilizing aseptic technique Location Lateral nail border , TA Debride Nail 6-10 Nail debridement Performance o f this nail treatment by a nonprofessional would put this patients foot and overall health at risk. Therefore, nail debridement was performed extensively to reduce/remove overall nail length, girth, thickness, subungual debris, and necrotic tissue, by manual and/or electrical means through the use of a nail nipper and/or dremel-type steel grinder, to a more viable healthy nail plate or bed tissue 6-10. Silver nitrate used for any petechial bleeding as necessary. Definitive antifungal treatment options have been reviewed and discussed with the patient. The patient chooses, no pharmaceutical tx - 31774 Keratoma Treatment Parring or Cutting o f Benign Hyperkeratotic Lesion(s) (-56) 2-4 Lesions - The Benign hyperkeratotic lesions, as described above were pared, and/or cut utilizing a sterile 15 blade, tissue nippers, and/or dremel - 99835 , Q8 Progress Notes * Bryce MEJIADOB:1945 ([age] yo M)Acc No.[id number]:09/19/2024 Progress Note Patient:?Bryce Mejia Provider:?Surinder Brar DPM :1945???Age:79 Y???Sex:Male Melo e:09/19/2024 Address:[address], [place], [place] Pcp:Irving Valentin MD Subjective: * Chief Complaints: * ???At Risk FootcarePainful N ail(s) aggravated by shoes and causing difficulty standing/walking.Ingrown Nail * HPI: ???At Risk footcare:?Pt States Last PCP Visit:?Date?09/17/2024 * ROS:?General/Constitutional:?Nausea?denies.?Vomiting?denies.?Hunger Thirst?denies.?Loss appetite?denies.?Chills?denies.?Fatigue?denies.?Fever?denies.?Night Sweats?denies.?Unexplained weight loss?denies.?Unexplained weight gain?denies.?HEENTM:?Dentures?denies.?Dizziness?denies.?Glasses/contacts?admits.?Retinopathy?de nies.?Blurred/double vision?denies.?TMJ?denies.?Discharge/drainage?denies.?Implants?denies.?Sore throat?denies.?Dental implants?denies.?Hard of hearing ?denies.?Difficulty chewing/swallowing/speaking?denies.?Nose bleeds?denies.?Sore mouth?denies.?Respiratory:?On Oxygen?denies.?Pneumonia/pleurisy?denies.?Bronchitis?denies.?Emphysema?denies.?C oughing?denies.?Cough blood?denies.?Shortness of breath?denies.?Wheezing?denies.?Cardiovascular:?Pacemaker?denies.?MVP?denies.?WPW?denies.?CHF?denies.?Heart attack?denies.?Septal defect?denies.?Rapid beat?denies.?Chest pain ?denies.?Atrial Fib.?denies.?Murmur/Palpitations?denies.?Gastrointestinal:?Hemorrhoids?denies.?Stomach/Abdominal pain?denies.?Dark blood stool?denies.?Irritable bowel ?denies.?Constipation?denies.?Diarrhea?denies.?Hematology:?Swelling?admits.?Clots?denies.?Varicose Veins?denies.?Bruising?denies.?Bleeding problem?denies.?Genitourinary:?Blood urine?denies.?Frequent/Painfu/urination/bladder control?denies.?Kidney stones?denies.?Infection (UTI)?denies.?Nephropathy?denies.?sex trans dis (STD)?denies.?Prostate?denies.?Musculoskeletal:?Hammertoes?denies.?Bunions?denies.?Back Pain?denies.?Muscle Cramps/ Resting?denies.?Muscle cramps / walking?denies.?Generalized aches and pains?denies.?Weakness?denies.?Integ.:?Jacobs?denies.?Scars?denies.?Corns/calluses?admits.?Ingrown nails?admits.?Painful nails?admits.?Open Sores?denies.?Rashes?denies.?Neurologic:?Difficulty sleeping?denies.?Brain disorder?denies.?Numbness?denies.?Balance trouble?denies.?Confusion?denies.?Fainting/blackouts?denies.?Tingling?denies.?Tr emors?denies.? * Medical History:? * Surgical History:?ankle surg radha colonoscopy Gall bladder 08/28/2024 * Hospitalization/Major Diagno stic Procedure:?[facility]-Blood infection/ gall bladder removed 08/28/2024- * Family History:?Mother: dece ased.?Father: .?Siblings: diagnosed with Diabetic - NIDDM.? * Social History:?Tobacco Use:?Tobacco Use/Smoking?Are you a:?former smoker ?Additional Findings: Tobacco Non-User?Current non-smoker ?Tobacco use other than smoking?Are you an other tobacco user??No ???Drugs/Alcohol:?Drugs?Have you used drugs other than those for medical reasons in the past 12 months??No ?Alcohol Screen?Did you have a drink containing alcohol in the past year??Yes ?How often did you have a drink containing alcohol in the past year??Monthly or less (1 point) ?Points?1 ?Interpretation?Negative ???Miscellaneous:?Caffeine: yes, frequency: Coffee, 1-2 cups per day. ?Children: yes. ?Exercise: yes, walking, occasional, housework, yard work,shopping. ?Marital status: . 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 * Medications:?TakingFolic Aci d Omeprazole aspirin baby Carvedilol Furosemide Methotrexate Sodium 2.5 MG Tablet Oral Taking Folic Acid Taking Omeprazole Taking aspirin baby Taking Carvedilol Taking Furosemide Taking Methotrexate Sodium 2.5 MG Tablet Oral Not-Taking/PRNAtorvastatin Calcium 40 MG Tablet Orally Allopurinol 150mg Tablet Orally Tamsulosin HCl 0.4 MG Capsule 1 capsule Orally Once a dayLisinopril 20 MG Tablet Orally Lisinopril-hydroCHLOROthiazide Ciclopirox Olamine 0.77 % Cream 1 application to affected area Externally Twice a dayRosuvastatin Calcium Flomax Medication List reviewed and reconciled with the patientNot-Taking/PRN Atorvastatin Calcium 40 MG Tablet Orally Not-Taking/PRN Allopurinol 150mg Tablet Orally Not-Taking/PRN Tamsulosin HCl 0.4 MG Capsule 1 capsule Orally Once a dayNot-Taking/PRN Lisinopril 20 MG Tablet Orally Not-Taking/PRN Lisinopril-hydroCHLOROthiazide Not-Taking/PRN Ciclopirox Olamine 0.77 % Cream 1 application to affected area Externally Twice a dayNot-Taking/PRN Rosuvastatin Calcium Not-Taking/PRN Flomax Medication List reviewed and reconciled with the patient Objective: * Vitals:?Ht: 5 ft 11 in, Wt:2 20, BMI: 30.68, Shoe size:13, BP:120/80 mm Hg, Wt- k.79 kg. * Examination: ???Vascular: ?DP PULSES(B):? 0/4, B/L.?PT PULSES(B):? 0/4, B/L.?CAPILLARY FILL TIME:? delayed, all digits, B/L.?TROPHIC CONDITION-TEXTURE/ELASTICITY/TURGOR/HAIR GROWTH(B):? decreased, with sparse to absent hair growth, B/L.?TEMPERTURE GRADIENT(C):? decreased, cool to cool, proximal to distal, B/L.?PIGMENTATION:?mottled, B/L.?EDEMA(C):?3/4 , non-pitting , without aching pain , Leg(s) , Ankle(s) , Foot , B/L.?CLAUDICATION(C):?denies, B/L.?REST PAIN:?denies, B/L.?Nails: ?NAILS are:?Elongated, overgrown, dystrophic, lytic, greater than 3mm thick, discolored and friable with crumbly malodorous subungual debris, with pain on palpation, TA, T1, T2, T4, T5, T6, T7, T9.?Dermatologic: ?SKIN FINDINGS:?Skin exam reveals Keratotic lesion(s) located at , SUB MTH (s) , 1 , B/L.?Ingrown Nail: ?INSPECTION:?Reveals nail incurvation, pain on palpation, groove hypertrophy , Lateral nail border , TA.? Assessment: * Assessment: 1.?Tinea unguium - B35.1?2.? Atherosclerosis of [place] artery of both lower extremities, with unspecified presence of clinical manifestation - I70.203?3.?Pain in right toe(s) - M79.674?4.?Pain in left toe(s) - M79.675?5.?Ingrown nail - L60.0, Lateral nail border, TA? Plan: * Treatment: 2.?Atherosclerosis of [place] artery of both lower extremities, with unspecified presence of clinical manifestation?Procedure: 24356-DCYZ SKIN LESIONS, 2 TO 4 3.?Ingrown nail?Procedure: 10544-Dnbatkmm Plate * Procedures:?Debride Nail 6-10:?Nail debridement?Performance of this nail treatment by a nonprofessional would put this patients foot and overall health at risk. Therefore, nail debridement was performed extensively to reduce/remove overall nail length, girth, thickness, subungual debris, and necrotic tissue, by manual and/or electrical means through the use of a nail nipper and/or dremel-type steel grinder, to a more viable healthy nail plate or bed tissue 6-10. Silver nitrate used for any petechial bleeding as necessary. Definitive antifungal treatment options have been reviewed and discussed with the patient. The patient chooses, no pharmaceutical tx - 96490.?Keratoma Treatment:?Parring or Cutting of Benign Hyperkeratotic Lesion(s)?(-56) 2-4 Lesions - The Benign hyperkeratotic lesions, as described above were pared, and/or cut utilizing a sterile 15 blade, tissue nippers, and/or dremel - 10808 , Q8.?Nail Avulsion:?Location?Lateral nail border , TA.?Anesthesia?2cc of 1 percent Lidocaine Plain local anesthesic utilizing aseptic technique.?Procedure?A fine sterile elevator was placed between the eponychium, nail fold, and nail plate to separate the structures. A sterile nail splitter, and/or sterile 316 blade, was then used to longitudinally section the nail along its entire length through the eponychium to the area under the nail fold. The offending portion of nail was from the nail bed with a rolling action and then removed with a hemostat. No underlying bone was identified. There was minimal bleeding as hemostasis was achieved through the temporary use of either a digital tourniquet or the aforementioned local with epinephrine. A bacitracin sterile dressing was applied. Local wound aftercare instructions were discussed and dispensed. The patient was informed of both conservative and future surgical procedures to prevent recurrence. Tylenol or Motrin was recommended for pain or discomfort (62867) , CIRCULATION: Pt was advised as to the risk of delayed or nonhealing due to circulation. Pt is to call the office with any questions, concerns, or complications.? * Procedure Codes:?85385 DEBRI DE NAIL, 6 OR MORE, Modifiers: XS 24614 Avulsion Plate, Modifiers: XS , [id number] TRIM SKIN LESIONS, 2 TO 4, Modifiers: XS , Q8 * Follow Up:?prn * Images: * Sign off status: Completed true * Provider:?Surinder Brar DPM Date:?2023 Generated for Dinorah saldaña/Lester/Julia on:?12/17/2024 12:31 PM EST History and Physical Notes * HPI (History of Present Illness) Category Sub-Category Detail Notes Category Not es At Risk footcare Pt States Last PCP Visit: Date: 4 Examination Category Sub-Category Detail Notes Category Not es Ingrown Nail INSPECTION: Reveals nail inc urvation, pain on palpation, groove hypertrophy , Lateral nail border , TA Dermatologic SKIN FINDINGS: Skin exam reveal s Keratotic lesion(s) located at , SUB MTH (s) , 1 , B/L Vascular DP PULSES (B): 0/4, B/L PT PULSES (B): 0/4, B/L CAPILLARY FILL TIME: delayed, all digits , B/L TEMPERTURE GRADIENT (C): decreased, cool to cool, proximal to distal, B/L TROPHIC CONDITION-TEXTURE/ELASTICITY/TURGOR/HAIR GROWTH (B): decreased, with sparse to absent hair gr owth, B/L EDEMA (C): 3/4 , non-pitting , without aching pain , Leg(s) , Ankle(s) , Foot , B/L CLAUDICATION (C): denies, B/L REST PAIN: denies, B/L PIGMENTATION: mottled, B/L Nails NAILS are: Elongated, overg rown, dystrophic, lytic, greater than 3mm thick, discolored and friable with crumbly malodorous subungual debris, with pain on palpation, TA, T1, T2, T4, T5, T6, T7, T9
--- OUTSIDE RECORDS SUMMARY | 2024-12-17 12:32 | XMS_ITS ---
Author Organization [facility] Address [address] [facility] [place] [address] Care Team Providers Care Transport Tech Name Role Phone Irving Valentin MD Primary Care Provider Surinder Arriola Unavailable [phone] Allergies No Known Allergies REASON FOR VISIT At Risk Footcare, Painful Nail(s) aggravated by shoes and causing difficulty standing/walking., Ingrown Nail Medications Medication SIG (Take, Route, Frequency, Duration) Notes Start Date End Date Status Ciclopirox Olamine 0.77 % 1 application to affected area Externally Twice a day for 30 days Not-Taking Lisinopril-hydroCHLOROthi azide Not-Taking Lisinopril 20 MG Orally Not -Taking Tamsulosin HCl 0.4 MG 1 capsule Orally O nce a day Not-Taking Allopurinol 150mg Orally No t-Taking aspirin baby Active Omeprazole Active Carvedilol Active Atorvastatin Calcium 40 MG Orally Not-Taking Furosemide Active Rosuvastatin Calcium Not-Taking Flomax Not-Taking Social History Tobacco Use: Social History Observation [...] W/U Status Risk Notes Problem Atherosclerosis of [place] arteries of the extremities ([id number]) Atherosclerosis of [place] artery of both lower extremities, with unspecified presence of clinical manifestation (I70.203) Active confirmed Vital Signs Height 5 ft 11 in in 06/13/2024 Weight 220 lbs 06/13/2024 BMI 30.68 kg/m2 06/13/2024 Blood pressure systolic 120 mm Hg 06/13/20 Blood pressure diastolic 80 mm Hg 024 Procedures Procedure Date Ordered Date Performed Result Body Sit e 05280-PSNOZKK NAIL, 6 OR MORE 06/13/2024 N/A 86536-Usxqkssu Plate 06/13/2024 N/A 07127-KCDK SKIN LESIONS, 2 TO 4 06/13/2024 N/A Encounters Encounter Location Date Provider Diagnosis [facility] [address] [address] 06/13/2024 Surinder Brar Atherosclerosis of [place] artery of both lower extremities, with unspecified presence of clinical manifestation I70.203 ; Tinea unguium B35.1 ; Pain in right toe(s) M79.674 ; Pain in left toe(s) M79.675 and Ingrown nail L60.0 Assessments Encounter Date Diagnosis (ICD Code) Assessment Notes Treatment Notes Treatment Clinical Notes Section Notes 06/13/2024 Atherosclerosis of [place] artery of both lower extremities, with unspecified presence of clinical manifestation (ICD-10 - I70.203) 06/13/2024 Tinea unguium (ICD-10 - B35.1) 06/13/2024 Pain in right toe(s) (ICD-10 - M79.674) 06/13/2024 Pain in left toe(s) (ICD-10 - M79.675) 06/13/2024 Ingrown nail (ICD-10 - L60.0) Plan Of Treatment Pending Test Test Name Order Date 42913-LSCCDVV NAIL, 6 OR MORE 06/13/2024 78248-Nddqevqm Plate 06/13/2024 13005-SFMS SKIN LESIONS, 2 TO 4 06/13/20 24 Next Appt Details Follow Up: prn, Reason: Provider Name:Surinder Brar , 02/06/2025 12:30:00 PM, [address] [place] [address], [phone], Procedure Notes * Category Sub-Category Detail Notes [...] Motrin was recommended for pain or discomfort (73399) , CIRCULATION: Pt was advised as to the risk of delayed or nonhealing due to circulation. Pt is to call the office with any questions, concerns, or complications Anesthesia 1.5cc of 1 percent L idocaine Plain local anesthesic utilizing aseptic technique Location Medial nail border , T6 Debride Nail 6-10 Nail debridement Nail debridem ent performed extensively to reduce/remove overall nail length, girth, thickness, subungual debris, and necrotic tissue, by manual and electrical means through the use of a nail nipper and/or dremel, to more viable healthy nail plate or bed tissue 1-5. Silver nitrate used for any petechial bleeding as necessary. Patient chooses, no pharmaceutical tx (53854) Keratoma Treatment Parring or Cutting o f Benign Hyperkeratotic Lesion(s) 88675 ( 2-4 Lesions ) - The Benign hyperkeratotic lesions, as described above were pared, and/or cut utilizing a sterile 15 blade, tissue nippers, and/or dremel , Q8 Progress Notes * Bryce MEJIADOB:1945 ([age] yo M)Acc No.[id number]:06/13/2024 Progress Note Patient:?Bryce Mejia Provider:?Surinder Brar DPM :1945???Age:78 Y???Sex:Male Melo e:06/13/2024 Address:[address], [place] , [phone] Pcp:Irving Valentin MD Subjective: * Chief Complaints: * ???At Risk FootcarePainful N ail(s) aggravated by shoes and causing difficulty standing/walking.Ingrown Nail * HPI: ???At Risk footcare:?Pt States Last PCP Visit:?Date?03/12/2024 * ROS:?General/Constitutional:?Nausea?denies.?Vomiting?denies.?Hunger Thirst?denies.?Loss appetite?denies.?Chills?denies.?Fatigue?denies.?Fever?denies.?Night Sweats?denies.?Unexplained weight loss?denies.?Unexplained [...] History:? * Surgical History:?ankle surg radha colonoscopy * Hospitalization/Major Diagno stic Procedure:?Denies Past Hospitalization * Family History:?Mother: dece ased.?Father: .?Siblings: diagnosed [...] yard work,shopping. ?Marital status: . 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 * Medications:?TakingOmeprazol e aspirin baby Carvedilol Furosemide Taking Omeprazole Taking aspirin baby Taking Carvedilol Taking Furosemide Not- Taking/PRNAtorvastatin Calcium 40 MG Tablet Orally Allopurinol 150mg [...] List reviewed and reconciled with the patient * Allergies:?N.K.D.A.yes[Aller gies Verified] Objective: * Vitals:?Ht: 5 ft 11 in, Wt:2 20, BMI:30.68, Shoe size:13, BP:120/80 mm Hg. * Examination: ???Vascular: ?DP PULSES:? 0/4, B/L.?PT PULSES:? 0/4, B/L.?CAPILLARY FILL TIME:? delayed, all digits, B/L.?SKIN TEMPERTURE GRADIENT OF THE LOWER EXTERMITIES:? decreased, cool to cool, proximal to distal, B/L.?HAIR GROWTH/TEXTURE/ELASTICITY/TURGOR:? decreased, B/L.?PIGMENTATION:?mottled, B/L.?EDEMA:?3/4 , non-pitting , without aching pain , Leg(s) , Ankle(s) , Foot , B/L.?CLAUDICATION:?denies, B/L.?REST PAIN:?denies, B/L.?Nails: ?NAILS are:?Elongated, overgrown, dystrophic, lytic, greater than 3mm thick, discolored and friable with crumbly malodorous subungual debris, with pain on palpation, TA, T1, T2, T4, T5, T6, T7, T9.?Dermatologic: ?SKIN FINDINGS:?Skin exam reveals Keratotic lesion(s) located at , SUB MTH (s) , 1 , B/L.?Ingrown Nail: ?INSPECTION:?Reveals nail incurvation, pain on palpation, groove hypertrophy , Medial nail border , T6 , There is evidence of surrounding periungual tissue erythema.? Assessment: * Assessment: 1.?Tinea unguium - B35.1?2.? Atherosclerosis of [place] artery of both lower extremities, with unspecified presence of clinical manifestation - I70.203?3.?Pain in right toe(s) - M79.674?4.?Pain in left toe(s) - M79.675?5.?Ingrown nail - L60.0, Medial nail border , T6? Plan: * Treatment: 2.?Atherosclerosis of [place] artery of both lower extremities, with unspecified presence of clinical manifestation?Procedure: 80862-NELR SKIN LESIONS, 2 TO 4 3.?Ingrown nail?Procedure: 38331-Ysxpvewh Plate * Procedures:?Debride Nail 6-10:?Nail debridement?Nail debridement performed extensively to reduce/remove overall nail length, girth, thickness, subungual debris, and necrotic tissue, by manual and electrical means through the use of a nail nipper and/or dremel, to more viable healthy nail plate or bed tissue 1-5. Silver nitrate used for any petechial bleeding as necessary. Patient chooses, no pharmaceutical tx (47503).?Keratoma Treatment:?Parring or Cutting of Benign Hyperkeratotic Lesion(s)?40225 ( 2-4 Lesions ) - The Benign hyperkeratotic lesions, as described above were pared, and/or cut utilizing a sterile 15 blade, tissue nippers, and/or dremel , Q8.?Nail Avulsion:?Location?Medial nail border?,?T6.?Anesthesia?1.5cc of 1 percent Lidocaine Plain local anesthesic [...] Motrin was recommended for pain or discomfort (55888) , CIRCULATION: Pt was advised as to the risk of delayed or nonhealing due to circulation. Pt is to call the office with any questions, concerns, or complications.? * Procedure Codes:?65209 DEBRI DE NAIL, 6 OR MORE, Modifiers: XS 12330 Avulsion Plate, Modifiers: XS , [id number] TRIM SKIN LESIONS, 2 TO 4, Modifiers: XS , Q8 * Follow Up:?prn * Images: * Sign off status: Completed Addendum: * ? true * Provider:?Surinder Brar DPM Date:?2023 Generated for Dinorah saldaña/Lester/Julia on:?12/17/2024 12:31 PM EST History and Physical Notes * HPI (History of Present Illness) Category Sub-Category Detail Notes Category Not es At Risk footcare Pt States Last PCP Visit: Date: 4 Examination Category Sub-Category Detail Notes Category Not es Ingrown Nail INSPECTION: Reveals nail inc urvation, pain on palpation, groove hypertrophy , Medial nail border , T6 , There is evidence of surrounding periungual tissue erythema Dermatologic SKIN FINDINGS: Skin exam reveal s Keratotic lesion(s) located at , SUB MTH (s) , 1 , B/L Vascular DP PULSES (B): 0/4, B/L PT PULSES (B): 0/4, B/L CAPILLARY FILL TIME: delayed, all digits , B/L TEMPERTURE GRADIENT (C): decreased, cool to cool, proximal to distal, B/L TROPHIC CONDITION-TEXTURE/ELASTICITY/TURGOR/HAIR GROWTH (B): decreased, B/L EDEMA (C): 3/4 , non-pitting , [...]
--- OUTSIDE RECORDS SUMMARY | 2024-12-17 12:32 | XMS_ITS ---
Author Organization [facility] Address [address] [place] [address] Care Team Providers Care Marketing Trainee Name Role Phone Irving Valentin MD Primary Care Provider Tre Guidry [phone] ALLERGIES No Known Allergies REASON FOR VISIT Patient presents today for dysphagia MEDICATIONS Medication SIG (Take, Route, Frequency, Duration) Notes Start Date End Date Status Carvedilol 3.125 MG Oral for 90 Active Ibuprofen 200 MG 1 tablet with food o r milk as needed Orally as needed Not-T aking Omeprazole 40 MG 1 Orally Take 1 ever y morning upon awakening and take 1 every day again at 5 or 6PM for 30 day(s) 11/29/2023 Active Aspirin 81 Active Acetaminophen 500 MG 1 capsule as needed Orally every 6 hrs Active Furosemide 40 MG Oral for 30 A ctive Tamsulosin HCl 0.4 MG Oral for 90 Active Allopurinol 300 MG 1/2 tablet Orally On ce a day Active Omeprazole 40 MG 1 Orally Every morning 09/27/2023 Active VITAL SIGNS BMI 31.62 kg/m2 02/05/2024 Blood pressure systolic 00 mm Hg 02/05/20 24 Blood pressure diastolic 00 mm Hg 024 Height 70.25 in 02/05/2024 Temperature 97.5 degrees Fahrenheit 02/05/20 24 Weight 222 lbs 02/05/2024 Encounters Encounter Location Date Provider Diagnosis [facility] [address] [place] [address] 02/05/2024 Tre Moody Gastroesophageal ref lux disease, unspecified whether esophagitis present K21.9 and Gastroesophageal reflux disease without esophagitis K21.9 ASSESSMENTS Encounter Date Diagnosis Assessment Notes Treatment Notes Treatment Clinical Notes 02/05/2024 Gastroesophageal ref lux disease, unspecified whether esophagitis present (ICD-10 - K21.9) 02/05/2024 Gastroesophageal ref lux disease without esophagitis (ICD-10 - K21.9) 02/05/2024 Other Use TUMS as needed for any nausea or indigestion. Call me if problems PLAN OF TREATMENT Medication Medication Name Sig Start Date Stop Date Notes Omeprazole 40 MG 1 Orally Every morning 09/27/2023 Treatment Notes Assessment Notes Other Use TUMS as needed f or any nausea or indigestion. Call me if problems Next Appt Details Follow Up: prn, Reason: Progress Notes * Examination Category Sub-Category Detail Notes General Examination GENERAL APPEARANCE: pleasant , well nourished, well developed, in no acute distress HEAD: EYES: sclera non-icteric EARS: NOSE: THROAT: NECK/THYROID: no cervical lymphade nopathy, neck supple HEART: S1, S2 normal CHEST: LUNGS: clear to auscultatio n bilaterally ABDOMEN: normal bowel sounds, no guarding or rigidity, no guarding or rigidity, no masses palpable, soft, nontender, nondistended NEUROLOGIC: alert and oriented SKIN: nonjaundiced, no spi camille angiomata EXTREMITIES: no edema PERIPHERAL PULSES: BACK: BREASTS: MUSCULOSKELETAL: MALE GENITOURINARY: LYMPH NODES: RECTAL EXAM: FEMALE GENITOURINARY: ORAL CAVITY: mucosa moist
--- OUTSIDE RECORDS SUMMARY | 2024-12-17 12:32 | XMS_ITS | Referral Summary ---
Author Organization [facility] Address [address] [place] [address] Care Team Providers Care Color Expert Name Role Phone Irving Valentin Primary Care Provider [phone] Encounters Date Type Department Care Team Description 10/22/2024 myChart Message [facility] [address]th [address] [place] [phone] Cfo Controller: Bg Noland MD Biopsy Results 10/21/2024 Telephone [facility] [address] [place] [phone] Cfo Controller: Haydee Fernandes LPN 10/15/2024 myChart Message [facility] [address] [place] [phone] Cfo Controller: Bg Noland MD Methotrexate 10/14/2024 11:15 AM EST Follow-Up [facility] [address] [phone] Cfo Controller: Bg Noland MD Dermal hypersensitivity reaction (Primary Dx); Neoplasm of uncertain behavior; High risk medication use 10/07/2024 myChart Message [facility] [address] [place] [phone] Cfo Controller: Bg Noland MD Labwork before f/u alfonso [...] Administration Dates Next Due Covid-19, Pfizer, mRNA, [place] valent, PF 30 mcg/0.3 mL dose (for [...] Description 12/19/2024 1:00 PM EST Procedure visit [facility] 4th Floor [address] [facility], [place] [phone] Cfo Controller: Brock Goodman MD [address] [place] [phone] 01/26/2025 8:30 AM EDT Follow-Up [facility] 4th Floor [address] [facility], [place] [phone] Cfo Controller: Bg Noland MD [address] [place] [address] Procedures * Due to [place] state law, this organization might not be sharing negative HIV tests. Procedure Name Priority Date/Time Associated Diagnosis Comments CBC AUTO DIFFERENTIAL Routine 10/14/2024 12:49 PM EST High risk medication use COMPREHENSIVE METABOLIC PANEL Routine 10/14/2024 12:49 PM EST High risk medication use TISSUE EXAM Routine 10/14/2024 12:02 PM EST Neoplasm of uncertain behavior from Last 3 Months Results * Due to [place] state law, this organization might not be [...] - 0.50 10*3/uL 10/14/2024 3:50 PM EST [facility] Basophil # 0.10 0.00 - 0.20 10*3/uL 10/14/2024 3:50 PM EST [facility] nRBC % 0.0 /100 WBCs 10/14/2024 3:50 PM EST [facility] nRBC # <0.01 <0.01 10*3/uL 10/14/2024 3:50 PM EST [facility] Blood Structure of peripheral vein / Unknown Venipuncture / Unknown 10/14/2024 12:49 PM EST 10/14/2024 12:53 PM EST us Bg Clinton MD LAB BLOOD ORDERABLES Final Res ult Performing Organization Address City/State/[facility] Co de Phone Number [facility] [address] [place] [phone], * (ABNORMAL) Comprehensive Metabolic Panel (10/14/2024 12:49 PM EST) NA 141 135 - 145 mmol/L 10/14/2024 4:02 PM EST [facility] K 3.5 3.5 - 5.3 mmol/L 10/14/2024 4:02 PM EST [facility] Cl 100 98 - 107 mmol/L 10/14/2024 4:02 PM EST [facility] CO2 28 22 - 32 mmol/L 10/14/2024 4:02 PM EST [facility] Anion Gap 13 5 - 15 [place] MANUAL 10/14/2024 4:02 PM EST [facility] Glucose 96 65 - 99 mg/dL 10/14/2024 4:02 PM EST [facility] Creatinine 1.17 0.60 - 1.30 mg/dL 10/14/2024 4:02 PM EST [facility] Calcium 9.6 8.6 - 10.5 mg/dL 10/14/2024 4:02 PM EST [facility] Total Protein 6.5 6.0 - 8.0 g/dL 10/14/2024 4:02 PM EST [facility] Albumin 4.1 3.5 - 5.2 g/dL 10/14/2024 4:02 PM EST [facility] Bilirubin, Total 0.8 0.2 - 1.2 mg/dL 10/14/2024 4:02 PM EST [facility] Alkaline Phosphatase 78 35 - 129 U/L 10/14/2024 4:02 PM EST [facility] AST 26 10 - 40 U/L 10/14/2024 4:02 PM EST [facility] ALT 22 10 - 40 U/L 10/14/2024 4:02 PM EST [facility] BUN 26(H) 7 - 23 mg/dL 10/14/2024 4:02 PM EST [facility] eGFR 63 >=60 mL/min/1. 73m2 [facility] MANUAL 10/14/2024 4:02 PM EST [facility] Comment:The estimated glomer ular [...] Globulin, Total 2.4 2.1 - 4.2 g/dL [facility] MANUAL 10/14/2024 4:02 PM EST [facility] A/G Ratio 1.7 1.5 - 3.0 [facility] MANUAL 10/14/2024 4:02 PM EST [facility] Blood Structure of peripheral vein / Unknown Venipuncture / Unknown 10/14/2024 12:49 PM EST 10/14/2024 12:53 PM EST us Bg Clinton MD LAB BLOOD ORDERABLES Final Res ult [facility] [address] [place] [address], * Tissue Exam (10/14/2024 12:02 PM EST) [...] the deeper tissue, clinical correlation is advised. [facility] MANUAL 10/16/2024 3:09 PM EST [facility] Clinical History Specimen 1: Favor SCC Favor SCC Specimen 2: Favor SCCis vs [place] Favor SCCis vs AK [facility] MANUAL 10/16/2024 3:09 PM EST [facility] Gross Description 1. Skin, [...] trisected, and entirely submitted in cassette 2A. [facility] MANUAL 10/16/2024 3:09 PM EST [facility] Gross Description User Grossing complete by Bettina Calhoun on 10/14/2024 2:30 PM [employer] MANUAL 10/16/2024 3:09 PM EST [facility] [employer] Embedded Images [facility] MANUAL 10/16/2024 3:09 PM EST [facility] Resulting Agency Case was signed out at [facility], Department of Pathology, [employer] 3 CLIA [id number] [facility] MANUAL 10/16/2024 3:09 PM EST [facility] Report Header Surgical Pathology Report ? Case: [id number] ? Authorizing Provider: ??Bg Clinton MD ? Collected: ? 10/14/2024 1202 ? Ordering Location: ? [facility] ? Received: ?10/14/2024 1414 ? [facility] ? Dermatology Clinic 4th ? Floor ? [...] ORDERAB LES Final Result [facility] [address] [place] [address], [facility] [address] [place] [phone], from Last 3 Months Insurance MEDICARE [facility] Care Teams Color Expert Relationship Specialty Start Date End Date Irving Valentin [address] [place] [address] [place] [address] PCP - General Internal Medicine 09/03/23
== END 2024-12-17 10:59 | disposition home or self-care (01) ==
PROVIDERS: PCP Internal Medicine; Visit Provider Nurse Practitioner Family
DX: N48.1 Balanitis (principal); R97.20 Elevated prostate specific antigen [PSA]; Z13.9 Encounter for screening, unspecified
CPT/HCPCS: 99213

== ENCOUNTER → 2024-12-17 10:25 | Outpatient (BNVA) | payer MEDICARE, SELFPAY | PROVIDERS: PCP Internal Medicine; Visit Provider Nurse Practitioner Family | DX: N48.1 Balanitis (principal); N13.8 Other obstructive and reflux uropathy; N40.1 Benign prostatic hyperplasia with lower urinary tract symptoms; R97.20 Elevated prostate specific antigen [PSA]; Z87.440 Personal history of urinary (tract) infections | CPT/HCPCS: 51798; 81003; 99212 ==

== ENCOUNTER 2025-01-15 14:41 | Emergency (ER) | payer MEDICARE, SELFPAY ==
[2025-01-15 14:57] VITALS: BP 110/65; PULSE 71; RESP 18; TEMP 36.4; O2SAT 98; BMI 29.3
--- NOTE | 2025-01-15 15:06 | ED_ITS ---
HPI - General Adult General Chief complaint: Eye Problems Stated complaint: blurry vision R eye Time Seen by Provider: 01/15/25 17:13 Source: patient, family (daughter), RN notes reviewed and old records reviewed Mode of arrival: ambulatory Limitations: no limitations History of Present Illness ED Provider: Srinivasa HPI narrative: 79-year-old male with past medical history significant for coronary artery disease, gout, chronic kidney disease, hyperlipidemia, hypertension, atherosclerosis presents for evaluation of blurry vision to his right eye. Patient reports that about 3 days ago he noticed a blurry vision 2 part of his right eye. He reports approximately 20% of his right eye in the central area just below midline seems somewhat blurry. He does not see any black spots. He reports that if he moves his eye around the blurry spot follows Denies any headache, weakness, lightheadedness. He wears glasses and has a remote history of a cataract surgery. He does not follow up Ophthalmology His symptoms have not changed since the onset 3 days ago Related Data Home Medications ?Medication ?Instructions ?Recorded ?Confirmed aspirin 81 mg tablet,delayed 81 mg PO DAILY 03/16/21 12/17/24 release diphenhydramine 25 1 tab PO BEDTIME PRN Pain 04/25/23 12/17/24 mg-acetaminophen 500 mg tablet (Tylenol PM Extra Strength) CPAP (CPAP Machine/Device) 06/13/23 12/17/24 omeprazole 40 mg capsule,delayed 40 mg PO DAILY@0630 10/22/23 12/17/24 release carvedilol 3.125 mg tablet (Coreg) 3.125 mg PO DAILY 08/29/24 12/17/24 folic acid 1 mg tablet 1 mg PO SUMOWETHFRSA@0900 08/29/24 12/17/24 methotrexate sodium 2.5 mg tablet 15 mg PO TU@0900 08/29/24 12/17/24 Previous Rx's ?Medication ?Instructions ?Recorded Shower chair #1 ea 08/07/23 Walker #1 ea 08/07/23 furosemide 40 mg tablet 40 mg PO DAILY #90 tabs 01/12/25 Allergies Allergy/AdvReac Type Severity Reaction Status Date / Time allopurinol AdvReac Mild Rash Verified 01/15/25 15:02 atorvastatin AdvReac Mild Rash Verified 01/15/25 15:02 Review of Systems Constitutional: Constitutional: Denies body ache(s), Denies fever(s) and Denies headache(s) Eyes: Eyes: Reports blurry vision, Denies exophthalmos, Reports change in vision, Denies floaters, Denies irritation, Denies loss of vision, Denies seeing flashes, Denies photophobia and Reports spots in vision ENT: Denies headache(s) Cardiovascular: Cardiovascular: Denies chest pain and Denies dyspnea Respiratory: Respiratory: Denies cough and Denies dyspnea Gastrointestinal: Gastrointestinal: Denies abdominal pain, Denies nausea and Denies vomiting Musculoskeletal: Musculoskeletal: Denies back pain Integumentary/Breasts: Skin/Breast: Denies rash Neurologic: Denies headache(s) and Denies loss of vision PMFSH Past Medical History Medical History Cholecystitis GEOVANNI (obstructive sleep apnea) Obesity (BMI 30.0-34.9) Renal insufficiency Hx of skin pruritus Gout Gastric ulcer Obesity Pulmonary hypertension Essential hypertension HLD (hyperlipidemia) Surgical History Hx of cholecystectomy H/O colonoscopy H/O foot surgery History of cataract surgery Family History Family History Father No problems noted. Mother Colon cancer Sister Colon cancer Brother Stomach cancer Social History Social History Household Members: None Housing: House Do you presently have visiting nurse or other home services: No Alcohol intake: never Comment: 2 MTHS AGO Patient Tobacco Use Status: Former Tobacco user Smoked in Last 30 Days: No e-Cigarette/Vaping Use: Never Used Second Hand Smoke Exposure: No Use of substances other than those prescribed or required for medical reasons: No Advance Directives: Yes Advance Directives Information Provided: Yes Advance Directives on File: No Advance Directives Date on File: 08/23/20 service: No Current occupational status: retired Cognitive needs: No Hearing needs: No Vision needs: Yes Physical Exam ED Vital Signs: Vital Signs - 24 hr 01/15/25 14:57 01/15/25 17:00 01/15/25 18:55 Temperature 97.5 F 98.6 F 98.6 F Pulse Rate 71 72 72 Respiratory Rate 18 16 16 Blood Pressure 110/65 153/83 H 153/83 H Pulse Oximetry 98 98 98 Oxygen Delivery Method Room Air Room Air Room Air BMI result Body Mass Index 29.3 Const General: healthy appearing, comfortable, no acute distress, alert and awake Nutritional Appearance: well nourished Orientation/consciousness: patient oriented x3 HENMT Head: Yes normocephalic and Yes atraumatic Eyes Periorbital: periorbital findings normal Eyelids: Yes eyelids normal Conjunctivae: conjunctivae normal Sclerae: sclerae normal Corneas: corneas normal Pupils: Equal, round and reactive pupils present EOM: EOMs intact bilaterally Direct Ophthalmoscopy: normal light reflex, no photophobia, no papilledema, fundi normal bilaterally and No photophobia Resp Effort & Inspection: normal respiratory effort, able to speak in complete sentences and not labored Skin General skin exam: elasticity normal Neuro General: patient oriented x3 Cranial nerves: Yes CN's II-XII intact bilaterally, Yes Equal, round and reactive pupils present and Yes Bilaterally intact EOM present Cognition (Neuro): normal cognition Extrem Other: Moving all extremities well without any obvious deformities Course Course Course Narrative: RME; 79 yold male presents to the ED for Right eye blurry vision for the past 2 days. Patient denies any slurred speech, facial droop paralysis of extremities. Patient denies any trauma. Patient states sometimes different field in vision of right eye is blurry. NIH Score 0 Medical Decision Making Medical Decision Making MDM Narrative: 79-year-old male presents for evaluation of blurry vision for the last 3 days. His symptoms do not appear to be related to stroke, he had no headache, no significant loss of vision, no dysarthria or weakness. He has no pain, redness to the eye. Glaucoma is less likely. I did not ultrasound of the right eye to evaluate for potential retinal or vitreous detachment. It did not see any evidence of either. I discussed with Ophthalmology, Dr. Schaeffer who recommends discharge and he will follow up with the patient in the office tomorrow. Differential Diagnosis Differential Diagnoses: The differential diagnosis associated with the presentation includes Amaurosis fugax Retinopathy Macular degeneration Retinal detachment Retinal artery occlusion less likely Tests considered The following testing was considered but not selected: Consider CT angiography of the neck and brain but this is deferred as the patient has no symptoms of large vessel occlusion. His symptoms are not severe to suggest retinal artery occlusion. He is already on aspirin in his symptoms started 3 days ago. Discharge Plan Discharge Clinical Impression: Vision loss, right eye Patient Disposition: Home, Self-Care Additional Instructions: You were referred to Dr. Schaeffer He gave the option of either showing up the office at 7:30 a.m. or calling in the morning to get an appointment to be seen tomorrow Return to the ER for new or worsening symptoms Prescriptions: No Action (DME) Walker See Rx Instructions .Route .MEDSUPPLY Qty: 1 0RF Rx Instructions: As directed (DME) Shower chair See Rx Instructions .Route .MEDSUPPLY Qty: 1 0RF Rx Instructions: As directed furosemide 40 mg tablet 40 mg PO DAILY Qty: 90 3RF methotrexate sodium 2.5 mg tablet 15 mg PO TU@0900 folic acid 1 mg Tablet 1 mg PO SUMOWETHFRSA@0900 carvedilol [Coreg] 3.125 mg tablet 3.125 mg PO DAILY Rx Instructions: must administer with a meal/food aspirin 81 mg tablet,delayed release (DR/EC) 81 mg PO DAILY diphenhydramine-acetaminophen [Tylenol PM Extra Strength] 25-500 mg tablet 1 tab PO BEDTIME PRN (Reason: Pain) (DME) CPAP Machine/Device Device See Rx Instructions .Route Rx Instructions: As directed omeprazole 40 mg capsule,delayed release(DR/EC) 40 mg PO DAILY@0630 Referrals: Glen Schaeffer [Physician] - (Right eye vision loss x3 days) Interventions: ED Discharge Assessment Last Done: 01/15/25 18:55 Discharge Date/Time: 01/15/25 19:00 Print Language: [place]
[2025-01-15 17:00] VITALS: BP 153/83; PULSE 72; RESP 16; TEMP 37; O2SAT 98
--- NOTE | 2025-01-15 17:25 | PC.NURSE ---
Pt reports no known mechanism of injury to R eye; denies pain or other neurological sx's; neuros intact; eyes are pinpoint, but reactive to light; hx of cataract surgery; sclera and conjuctivae appear WNL
--- OUTSIDE RECORDS SUMMARY | 2025-01-15 18:52 | XMS_ITS | Patient Health Record ---
Author Organization [facility] Address [address] [place] [address] Care Team Providers Care Bobj Developer Name Role Phone Irving Valentin MD Primary Care Provider Tre Guidry Unavailable [phone] ALLERGIES No Known Allergies REASON FOR REFERRAL [...] malignant neoplasm of colon (Z12.11) Active confirmed 353287693 Problem History of adenomatous polyp of colon (Z86.010) Active confirmed 527735345 Problem Change in bowel habits (R19.4) Active confirmed 60397910 Problem Encounter for screening for malignant neoplasm of rectum (Z12.12) Active confirmed Screening for malignant neoplasm of rectum (685569059) Problem Dysphagia (R13.10) Active confirmed Dys phagia (11445135) Problem Gastroesophageal reflux disease without esophagitis (K21.9) Active confirmed 404818088 Problem Peptic ulcer disease (K27.9) Active confirmed 51505817 Problem NSAID long-term use (Z79.1) Active confirmed 025930699 Problem Diverticulosis of colon (K57.30) Active confirmed Diverticulosi s of colon (284276702) Problem Gastroesophageal reflux disease, unspecified whether esophagitis present (K21.9) Active confirmed 999919764 Problem Esophageal dysphagia (R13.19) Active confirmed 61767430 VITAL SIGNS Temperature 97.5 degrees Fahrenheit 02/05/2024 Blood pressure diastolic 00 mm Hg 02/05/2024 Height 70.25 in 02/05/2024 Blood pressure systolic 00 mm Hg 02/05/2024 Weight 222 lbs 02/05/2024 BMI 31.62 kg/m2 02/05/2024 Encounters Encounter Location Date Provider Diagnosis [facility] [address] [place] [address] 02/05/2024 Tre Moody Gastroesophageal ref lux disease, unspecified whether esophagitis present K21.9 and Gastroesophageal reflux disease without esophagitis K21.9 [facility] [address] [place] [address] 01/29/2024 Tre Moody ASSESSMENTS Encounter Date Diagnosis [...] Date MEDICARE OF [place] ZAK LEI [address] [place] [id number] [phone] [id number] BLAZE MEJIA Self - patient is the insured [employer] ATT[employer] CLAIMS [address] [place] [address] [phone] [id number] BLAZE MEJIA - patient is the insured MEDICAL (GENERAL) HISTORY Medical History History ICD Code Small tubular adenomas remov ed in 2002 and in July 2011; he had a negative colonoscopy in 2005 with me and a negative colon[place] [address] Mast; he does have diverticulosis and internal hemorrhoids Gastric ulcer in 1993--EGD--biopsies wer e neg. for H.pylori Denies UT,DM,CVA,Lung disease,renal dise ase HTN Gout Reported bleeding duodenal ulcer in the Negative screening colonoscopy in 2016 Pruritic skin rash followed by Dr. Thomason from dermatology as of the 01/2023 OV Renal insufficiency--seeing Dr. Barnard-- 01/24/2023 Sleep apnea-using CPAP Neg.Nuclear med ETT with Dr. Atkins at [facility] summer 2022 Neg. colonoscopy 03/2023 Upper endoscopy [...]
--- OUTSIDE RECORDS SUMMARY | 2025-01-15 18:52 | XMS_ITS | Encounter Summary ---
Author Organization [facility] Address [address] [place] [address] Care Team Providers Care Service Support Representative Name Role Phone Irving Valentin Primary Care Provider [phone] Encounter Details Date Type Department Care Team (Late st Contact Info) Description 12/30/2024 Telephone [facility] [address]th [address] [place] [address], Fourth [place] [address] Environmental Maintenance Worker: Bg Noland MD [address] [place] [address] Social History Tobacco Use Types Packs/Day Years Used Date Smoking Tobacco: Former Cigarettes Smokeless Tobacco: Never Sex and Gender Information Value Date Recorded Sex Assigned at Male 05/27/2024 8:09 AM EDT Legal Sex Male 3:18 PM EDT Gender Identity Male 10/07/2024 10:51 AM EST Sexual Orientation Choose not to disclose 2023 10:51 AM EST documented as of this encounter Miscellaneous Notes * Telephone Encounter - Sylwia Mon - 12/30/2024 10:14 AM EST All set in separate note * Telephone Encounter - Bg Clinton MD - 12/30/2024 8:09 AM EST Please schedule patient with me for follow up rash on February 10 at 11:15 am, ok to double book. You don't need to call; his daughter, Nancy is already aware of appt time. You can just add to schedule. Thanks! bg documented in this encounter Plan of Treatment Upcoming Encounters Date Type Department Care Team (Late st Contact Info) Description 02/10/2025 11:15 AM EDT Follow-Up [facility] [address], [place] [address] Environmental Maintenance Worker: Bg Noland MD [address] [place] [address] 06/29/2025 9:30 AM EDT Follow-Up [facility] [address] [place] [address], [place] [address] Environmental Maintenance Worker: Bg Noland MD [address] [place] [address] documented as of this encounter Visit Diagnoses Not on filedocumented in this encounter Care Teams Service Support Representative Relationship Specialty Start Date End Date Irving Valentin [address] [place] [address] [place] [address] PCP - General Internal Medicine 09/03/23 documented as of this encounter
--- OUTSIDE RECORDS SUMMARY | 2025-01-15 18:52 | XMS_ITS | Patient Health Record ---
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, with unspecified presence of clinical manifestation (I70.203) Active confirmed Vital Signs Blood pressure diastolic 80 mm Hg 09/19/2024 Height 5 ft 11 in in 09/19/2024 Blood pressure systolic 120 mm Hg 09/19/2024 Weight 220 lbs 09/19/2024 BMI 30.68 kg/m2 09/19/2024 Procedures Procedure Date Ordered Date Performed Result Body Sit e 81043-HFBONCY NAIL, 6 OR MORE 03/14/2024 N/A 99706-Hwnqvcyg Plate 03/14/2024 N/A 74492-OSXDZYE NAIL, 6 OR MORE 06/13/2024 N/A 87539-Mekeokjd Plate 06/13/2024 N/A 49696-QEIW SKIN LESIONS, 2 TO 4 06/13/2024 N/A 37665-GXXDEEF NAIL, 6 OR MORE 09/19/2024 N/A 91026-Acbsjgbc Plate 09/19/2024 N/A 06275-CLEY SKIN LESIONS, 2 TO 4 09/19/2024 N/A Encounters Encounter Location Date Provider [facility] [address] 03/14/2024 Surinder Brar Tinea unguium B35.1 ; Pain in right toe(s) M79.674 ; Pain in left toe(s) M79.675 and Ingrown nail L60.[address] [facility] [address] 06/13/2024 Surinderjeancarlos TraoreZonia Atherosclerosis of paiute-shoshone artery of both lower extremities, with unspecified presence of clinical manifestation I70.203 ; Tinea unguium B35.1 ; Pain in right toe(s) M79.674 ; Pain in left toe(s) M79.675 and Ingrown nail L60.[address] [address] 09/19/2024 Surinder Zonia Atherosclerosis of paiute-shoshone artery of both lower extremities, with unspecified presence of clinical manifestation I70.203 ; Tinea unguium B35.1 ; Pain in right toe(s) M79.674 ; Pain in left toe(s) M79.675 and Ingrown nail L60.0 [facility] [address] [address] 12/15/2024 Surinder Brar Assessments Encounter Date Diagnosis (ICD Code) Assessment Notes Treatment Notes Treatment Clinical Notes Section Notes 03/14/2024 Tinea unguium (ICD-10 - B35.1) 03/14/2024 Pain in right toe(s) (ICD-10 - M79.674) 06/13/2024 Tinea unguium (ICD-10 - B35.1) 06/13/2024 Atherosclerosis of paiute-shoshone artery of both lower extremities, with unspecified presence of clinical manifestation (ICD-10 - I70.203) 09/19/2024 Tinea unguium (ICD-10 - B35.1) 09/19/2024 Atherosclerosis of pai[place]-shoshone artery of both lower extremities, with unspecified [...] Treatment Pending Test Test Name Order Date 19142-ISOZYAM NAIL, 6 OR MORE 02/23/2017 03957-VWBXYEU NAIL, 6 OR MORE 06/01/2017 04857-EKJOPWO NAIL, 6 OR MORE 08/31/2017 48496-VUUSBWV NAIL, 6 OR MORE 11/23/2017 28097-FWHLWZD NAIL, 6 OR MORE 02/22/2018 99124-LCDKBLV NAIL, 6 OR MORE 05/24/2018 94770-BWJHTYK NAIL, 6 OR MORE 08/23/2018 67426-RHKJODQ NAIL, 6 OR MORE 12/03/2018 62143-NMHTOEY NAIL, 6 OR MORE 03/07/2019 14939-VVFVMDB NAIL, 6 OR MORE 06/13/2019 07024-TCLXIPP NAIL, 6 OR MORE 10/03/2019 63401-VQLHJGH NAIL, 6 OR MORE 01/02/2020 66596-FHPXERP NAIL, 6 OR MORE 04/09/2020 98406-QBMKDLI NAIL, 6 OR MORE 07/02/2020 18281-BBMCOAE NAIL, 6 OR MORE 10/08/2020 50511-SSPICTM NAIL, 6 OR MORE 01/07/2021 97440-ZUXQMUF NAIL, 6 OR MORE 05/10/2021 72047-CXYDFOY NAIL, 6 OR MORE 08/09/2021 77930-CPUQSDE NAIL, 6 OR MORE 11/22/2021 92488-DSZFFBB NAIL, 6 OR MORE 02/28/2022 86746-DCOUNAW NAIL, 6 OR MORE 07/25/2022 24007-BSCEBRU NAIL, 6 OR MORE 11/03/2022 49542-MKPSNPB NAIL, 6 OR MORE 02/09/2023 01780-SPASFUG NAIL, 6 OR MORE 05/08/2023 06658-FRWQBBU NAIL, 6 OR MORE 08/24/2023 42913-ZQOFKWQ NAIL, 6 OR MORE 12/11/2023 21795-JQWRKYC NAIL, 6 OR MORE 03/14/2024 68673-BDNDQXA NAIL, 6 OR MORE 06/13/2024 75574-IBTPZZH NAIL, 6 OR MORE 09/19/2024 10289-Hhomfneg Plate 09/19/2024 38869-Jurhizye Plate 06/13/2024 45291-Cnqpksha Plate 03/14/2024 35015-Eduvysuy Plate 12/11/2023 22940-Cxrtkhmx Plate 08/24/2023 53120-Bnhjqzmp Plate 05/08/2023 14022-Syycesnv Plate 02/09/2023 46808-Jbxwcdtj Plate 11/03/2022 19076-Lemmfxiw Plate 07/25/2022 23462-Jawclwup Plate 02/28/2022 84998-Fcvzxnkz Plate 11/22/2021 32875-Sqntqalp Plate 08/09/2021 49234-Xndpndds Plate 05/10/2021 77763-Ztuqaheu Plate 01/07/2021 85737-Pmbgnxum Plate 10/08/2020 85139-Tjgwwrdw Plate 07/02/2020 21332-Allgmjzj Plate 04/09/2020 71343-Wwmadazg Plate 01/02/2020 38221-Cplauewl Plate 10/03/2019 18138-Qazhzgin Plate 06/13/2019 54467-Hthjhdhb Plate 08/23/2018 90352-Qrxclhjz Plate 12/03/2018 32752-Rwtuhxfx Plate 03/07/2019 09278-Uzefyqou Plate 02/22/2018 48982-Dnrrksul Plate 05/24/2018 19246-Ohqxlvsk Plate 08/31/2017 47061-Qjreqvep Plate 11/23/2017 10662-Ciwlezat Plate Each Additional 04/2018 54381-Wvnekgko Plate Each Additional 03/2018 55239-Magrgldd Plate Each Additional 07505-Ynnbwhqd Plate Each Additional 04/2018 60824-Cqctrnjh Plate Each Additional 68228-Akltnskk Plate Each Additional 03/2018 04714-Rpboxffl Plate Each Additional 96913-Ybcgfsdg Plate Each Additional 71500-Qcdqjeae Plate Each Additional 01447-Uanzrnde Plate Each Additional 00257-Yxoukmkm Plate Each Additional 26782-Ttmftwmn Plate Each Additional 19883-Rcukbofu Plate Each Additional 34097-Tdurznzw Plate Each Additional 89480-Dshtfbqa Plate Each Additional 94445-Luytswys Plate Each Additional 70701-Mycldgzl Plate Each Additional 02/2022 84681-Vbbxthwm Plate Each Additional 10/2022 78018-RBSL SKIN LESIONS, 2 TO 4 06/13/20 44094-UJAB SKIN LESIONS, 2 TO 4 09/19/20 Next Appt Details Provider Name:Surinder Brar , 02/06/2025 12:30:00 PM, [address] [place], [address], Insurance Providers Payer Name Payer Address Payer Phone Subscriber Number Group Number Insured Name Patient Relationship to Insured Coverage Start Date Coverage End Date Medicare National Govt [employer] [facility] [address] [place] [address] [id number] Bryce Yarbrough Self - patient is the insured [employer] [address] [place] [address] [phone] [id number] Bryce Yarbrough Self - patient is the insured Medical (General) History Medical History History ICD Code Cataracts Arthritis Gout Scarlet fever Stomach ulcer Measles Mumps Chicken pox Joint implants/screws Hypertension Prostate CAD Pain in Joints rash sleep apnea Surgical History Surgery Date(Month/Year) ankle surgery colonoscopy Gall bladder 08/28/2024 Hospitalization History Reason Date(Month/Year) [facility]-Blood infection/ gall bladder remove d 08/28/2024-
--- OUTSIDE RECORDS SUMMARY | 2025-01-15 18:52 | XMS_ITS ---
Author Organization [facility] Address [address] [place] [address] Care Team Providers Care Remote Sensing Specialist Name Role Phone Irving Valentin MD Primary Care Provider Unavaila Surinder Sierra Unavailable [phone] Encounters Encounter Location Date Provider Diagnosis [address] [address] 12/19/2024 Surinder Brar Plan Of Treatment Next Appt Details Provider Name:Surinder Brar , 02/06/2025 12:30:00 PM, [address] [place] [address], [phone], Progress Notes * Bryce MEJIADOB:1945 ([age] yo M)Acc No.[id number]:12/19/2024 Progress Note Patient:?Bryce MEJIA Provider:?Surinder Brar DPM :1945???Age:79 Y???Sex:Male Melo e:12/19/2024 Address:[address], [place] Pcp:Irving Valentin MD Subjective: * Chief Complaints: * ??? * Medical History:? Objective: * Vitals:? Assessment: Plan: * Treatment: * Images: * The named appointment provid er may or may not be the originator of this progress note, and it is not deemed complete until electronically signed by the appointment provider. Sign off status: Pending * Provider:?Surinder Brar DPM Date:?2024 Generated for Dinorah saldaña/Lester/Julia on:?01/15/2025 06:51 PM EST
--- OUTSIDE RECORDS SUMMARY | 2025-01-15 18:52 | XMS_ITS ---
Author Organization [facility] Address [address] [place] [address] Care Team Providers Care Commercial Loan Underwriter Name Role Phone Irving Valentin MD Primary Care Provider UnavailSurinder Almonte [phone] REASON FOR VISIT RS 12/19/24 APPT Encounters Encounter Location Date Provider Diagnosis [address] [address] 12/15/2024 Surinder Brar Plan Of Treatment Next Appt Details Provider Name:Surinder Brar , 02/06/2025 12:30:00 PM, [address] [place] [address], [phone], Progress Notes * Bryce MEJIADOB:1945 ([age] yo M)Acc No.[id number]:12/15/2024 Patient:?Bryce MEJIA :1945???Age:79 Y???Sex:Male Address:[address] [place] [address] * true * Date:? Generated for Printi ng/Favalg/eTransmitting on:?01/15/2025 06:52 PM EST
--- OUTSIDE RECORDS SUMMARY | 2025-01-15 18:53 | XMS_ITS | Encounter Summary ---
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 Procedures MOHS Surgery Brock Cuadra MD [address] [place] [id number] Phone: tel: fax: Referral ID Status Reason Start Date Expiration Date V isits Requested Visits Authorized [id number] Pending Review 12/19/2024 06/20/2026 1 1 Reason for Visit * Reason Comments Mohs Left scalp Encounter Details Date Type Department Care Team (Latest Contact Info) Description 12/19/2024 1:00 PM EST Procedure visit [facility] [address]th [address] [place] [address], [place] [address] Cardiology Physician: Brock Goodman MD [address] [place] [address] [phone] 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); 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 Brock Cuadra performed Surgery ON THE CHEST. INITIAL DRESSING CARE Initial bulky dressing stays in place for 48 hours. Keep the dressing absolutely dry. Keep the dressing ON in the shower You may remove the dressing and continue with wound care DAILY DRESSING CARE Wash hands before each dressing change. Change the bandage once daily. Remove the bandage Gently cleanse the wound with liquid soap and water. Try to clean off any crust or debris. Then apply a thick layer of Vaseline ointment. Cover the wound with a bandaid / telfa and tape. Continue wound care for 10-14 days ON THE CHEST, and 7 DAYS ON THE FACE. Keep wound covered at all times until your sutures are removed. THINGS TO AVOID Avoid strenuous activities such as exercise, bending, lifting more than 5 lbs, cleaning. Activitiescan place stress the wound or raise your blood pressure and result in infection or bleeding complications Avoid submerging the wound such as taking a bath, swimming or using a jacuzzi. Avoid smoking which can delay wound healing. DISCOMFORT: Keeping the area elevated in the first 48 hours will decrease swelling and discomfort. You may ice the area for 10 -15 minutes every hour for the first 24 - 48 hours while awake. For pain, take tylenol (acetaminophen) every 6 hours. Avoid alcohol and ibuprofen for 3 days. DO NOT stop aspirin if you currently take a daily aspirin. BLEEDING: If light bleeding occurs, apply direct pressure over the wound for 15-20 minutes with a clean cloth. If bleeding continues, repeat this cycle once again. If bleeding still persists, call us. INFECTION: Signs of infection include increasing pain, increasing redness, swelling, drainage, red streaks, fever. If you experience any signs of infection, call the number below. PHONE NUMBERS TO CALL (Please call us with any questions or concerns) 8AM - 4PM Call the Clinic at: and ask for the nurse. Weekends, evenings, nights Call and ask for the ???Reservation Manager revenue cycle consultant?? [facility] DERMATOLOGY WOUND CARE INSTRUCTIONS EFUDEX (5-Fluororacil)/ ALDARA (Imiquimod) ? You have been prescribed a topical medication for the treatment of pre- cancerous and early cancerous lesions. It should be used as directed for the complete duration of time recommended. This is very important to maximize the effectiveness of the treatment. ? Apply to the following areas: right scalp/ crusted areas on scalp ? Prior to applying the topical medication, wash your face with a mild liquid cleanser (eg. Dove, Cetaphil) and pat it dry. There is no need to scrub the area vigorously, as this will only irritate the skin. ? Allow skin to dry. Applying the medication to wet skin will increase irritation. ? For 2 weeks, apply a thin layer of medication 2 times a day and lightly rub it in. ? Afterward thoroughly wash your hands. Avoid getting the medication on your eye, eyelids or lips unless specifically directed to do so. ? We recommend you apply a light moisturizer (Oil of Olay, Cetaphil etc.) 30 minutes after using the medication and as often as needed to keep the skin and/or scale soft. If the skin is allowed to crust or scab, it may crack or bleed and become painful. ? Repeat this application process as often as it is recommended on your prescription. ? If any areas become open or weepy, we encourage you to apply 1% hydrocortisone cream or Mupirocinat least twice a day to help prevent infection. ? It is normal that most people using these medications will experience redness and irritation of the skin in the areas treated (may look like poison rojas). This is an indication that the medicine is effective. In general, the worse the irritation, the better the results. For some people, the redness, scale, itch and irritation begins after only 2-3 days, and for others it may take 2 weeks or longer. Please DO NOT STOP your medication unless the irritation is severe. Contact us if you think you need to stop the medication. ? If there is pain, blistering, extreme redness or crusting, or if the skin cracks or bleeds, stop the medication for a few days. Restart the medication and complete the treatment. PHONE NUMBERS TO CALL Weekdays 8AM - 4PM Call the Clinic at: and ask for the nurse. Weekends, evening, night Call and ask for the Reservation Manager revenue cycle consultant. documented in this encounter Progress Notes * Brock Cuadra MD - 12/19/2024 1:13 PM EST Images from the original note were not included. [facility] Department of Dermatology, Mohs Micrographic Surgery Report: Surgical Staff: Brock Cuadra MD MPH, Francesca Henson MD (Fellow) Referring Provider: Bg Clinton MD, Irving Valentin Procedure: Mohs micrographic surgery of a SQUAMOUS CELL CARCINOMA IN SITU from the LEFT FRONTAL SCALP with a Complex layered closure. Patient Profile: Mohs micrographic surgery was chosen over simple excision or destruction techniques because of the type of tumor, the location of the tumor, the need for tissue sparing, poorly defined margins, and the size of the lesion Pre-OP Diagnosis: Squamous cell carcinoma in situ With endophytic growth Lesion Size: The lesion measured 1.4 cm by 1.1 cm Post-OP Diagnosis: Squamous cell carcinoma in situ With endophytic growth Description of Procedure Prep & Drape: - The patient was brought to the surgical suite where informed consent was obtained. The site was identified by the surgeon and confirmed by the patient and a time out was performed. The surgical location was cleaned thoroughly with Betadine and draped in a sterile fashion. - Local anesthesia was obtained with lidocaine 2% with epinephrine 1:110,000. Procedure Details: - This procedure was performed using the accepted Mohs Micrographic Surgery techniques in which theattending physician, Dr. Brock Cuadra, acts in two integrated, but distinct, capacities as surgeon and pathologist. - The lesion was sharply debulked to remove residual apparent tumor. A first Mohs cut was taken to include 1-2 mm of normal appearing epidermis peripherally as well as underlying tissue. Hemostasis was achieved with electrocautery. The tissue was mapped as a single piece and color coded in the three color marking system. Slides were prepared from the tissue and reviewed. Focus of AK/SCCis noted on deeper sections of block (not at margin), removed in standing cone and patient will also treat with Efudex. - The specimen showed clear margins. Closure: -The dressing was removed and closure options were evaluated. The defect measured 1.8 cm by 1.5 cm.After a full review of treatment options, it was decided that the defect would need to be closed with a complex layered closure. Indications for such a closure included the requirement for extensive u ndermining to relieve tension. The area was reprepared and draped and supplemental anesthesia administered. After the removal of standing cones and undermining greater than the distance of the wound along peripheral edge of wound, meticulous hemostasis with electrocautery was obtained, including examination and cautery of the undermined areas. The wound was then closed with 4-0 Monocryl buried sutures toeliminate space and add wound security. This included closure of the subcutaneous fat and dermis . The skin was closed with 5-0 Prolene. - The final repair size after closure measured 4.0 cm. Dressing: - A sterile pressure dressing was applied. Patient Discharge: - The patient was given extensive wound care instructions in oral and written form. - The patient tolerated the procedure well and was discharged in stable condition. The procedure results were discussed with the patient prior to discharge. Complications: - None. Post-OP Plan: - The patient will have SR at home in 10 days Additional Photos: Excision Procedure Note Surgeon: Brock Cuadra MD Civil Rights Investigator Surgeon: Francesca Henson MD Indications for Treatment: Patient has had a biopsy-proven squamous cell carcinoma in-situ and options for treatment were discussed. Excision was chosen for definitive treatment and histopathologic confirmation. Diagnosis: squamous cell carcinoma in-situ Location: R chest Size of Lesion: 1.4x1.1 cm. Size of Lesion (including margins): 2.2 x1.9 cm Informed Consent: Discussed risks (scarring, infection, pain, bleeding, bruising, damage to nearby structures, damage to nerves causing numbness or weakness, and recurrence of the lesion) and benefits of the procedure, as well as the alternatives. Informed consent was obtained. TimeOut:: A timeout was performed. Preparation: The area was prepared and draped in a sterile fashion. Anesthesia: lidocaine 2% with epinephrine 1:220,000 Procedure Details: The lesion was excised down to subcutaneous fat with a 4 mm margin of normal appearing skin. It was removed by sharp incision using a scalpel at the base. Meticulous hemostasis was obtained with monopolar electrodesiccation. Intermediate Closure: Various closure modalities were discussed with the patient, and it was decided that a layered repair would give the best result. This type of repair was necessary in order to reduce the risk of dehiscence, infection, and skin necrosis. To obliterate space and improve wound security, the deep tissue was closed with 3-0 Monocryl using interrupted subcutaneous stitches. Fine approximation of the epidermis was achieved with 5-0 prolene in running fashion. Size of the repair: 4 cm There were no complications. Vaseline ointment and a sterile dressing applied. The specimen was sent for pathologic examination. The patient tolerated the procedure well. Plan: The patient was instructed on post-op care. Recommend OTC analgesia as needed for pain. The patient will have SR at home in 10 days Additional Photos: # Actinic skin damage - gritty pink papule on scalp - I explained these lesions are precancerous and should be treated to prevent progression to skin cancer. - Continue regular TBSEs and home surveillance for rapidly growing, painful or bleeding lesions. - start Efudex 5% cream BID x 2 weeks to scalp. I discussed the expected skin irritation and recommended Vaseline PRN and stopping the medication/calling for a severe reaction. 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 MOHS Surgery Date/Time: 12/19/2024 1:00 PM Performed by: Brock Cuadra MD Authorized by: Brock Cuadra MD Procedure (Free Text): SCC Left Frontal Scalp, SCC Right Chest Patient identity confirmed?: Name and with patient and Verbally Written consent obtained?: Yes Risks and benefits discussed?: Yes Consent given by?: Patient Procedure consent matches procedure to be performed: Yes All relevant documents/tests are correctly identified, labeled, and matched to patient: Yes Relevant tests/ Imaging studies available/reviewed: Yes Correct site marked: Yes Required blood products, implants, devices and special equipment available: N/A Immediately prior to the procedure a time out was called: Yes An attending physician was present for the procedure OR the procedure was performed by an Advanced Practice Provider (Residents: A yes indicates you are attesting to the attending being present for the castro portions of the procedure. Checking yes when the attending was not present may result in fraudulent charges being submitted): Yes Attending Provider:: Brock Cuadra Fellow: Sixto Nurse: Lizzy MOA: Nalini Reis Patient Fasting?: No Allergies: Atorvastatin Implant Devices: Other (see comment) Other (comment): No Implanted Devices Blood Thinners?: Yes Blood Thinners: ASA Joint Replacement?: No Antibiotics Before the Dentist?: No Cautery set up:: [facility] Grounding pad site:: Left Arm Surgical Prep: Povidine Iodine 16 mL lidocaine-epinephrine (PF) 1%-1:220,000 (PF) 1%-1:220,000 Patient Condition: Stable Wound Treated With:: Vaseline Bandages to remain in place for:: 48 hours Follow up required:: As Needed Discharge: Patient tolerated the procedure well with no immediate complications, Pressure dressing applied, Wound care reviewed verbally and in writing and Patient discharged in good condition documented in this encounter Miscellaneous Notes * Result Encounter Note - Francesca Henson MD - 12/22/2024 12:09 PM EST Please see telephone encounter from 12/22/24 documented in this encounter Plan of Treatment Upcoming Encounters Date Type Department Care Team (Late st Contact Info) Description 02/10/2025 11:15 AM EDT Follow-Up [facility] 4th Floor [address], [place] [address] Cardiology Physician: Bg Noland MD [address] [place] [phone] 06/29/2025 9:30 AM EDT Follow-Up [facility] [address], [place] [address] Cardiology Physician: Bg Noland MD [address] [place] [phone] documented as of this encounter Procedures * Due to [place] [email or web address] law, this organization might not be sharing negative HIV tests. 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 * Tissue Exam (12/19/2024 1:53 PM EST) Final Diagnosis Skin, Right Chest, Excision: - No residual carcinoma is seen. - Biopsy site, excised. [facility] MANUAL 12/22/2024 10:50 AM EST [facility] ANATOMIC PATHOLOGY LABORATORY Clinical History Specimen 1: Excision SCCis [facility] MANUAL 12/22/2024 10:50 AM EST [facility] ANATOMIC PATHOLOGY LABORATORY Gross Description 1. Skin, right chest The specimen is received in formalin, labeled with the patient's name, medical record number, date of , and right chest . It consists of an unoriented 4.3 x 2.4 cm ellipse of skin excised to a depth of 0.5 cm. The max-white skin surface is remarkable for a max-white irregular patch consistent with a previous biopsy site measuring, 1.5 x 1.1 and is located 0.4 cm from the nearest radial resection margin. The resection margin is inked black and the specimen is sectioned. The specimen submitted entirely as follows: 1A: Tips, en face 1B-1F: Sequential cross-sections of remaining ellipse [facility] MANUAL 12/22/2024 10:50 AM EST [facility]ATOMIC PATHOLOGY LABORAT[facility] Gross Description User Grossing complete by Chiara Daniel on 12/19/2024 3:52 PM [employer] MANUAL 12/22/2024 10:50 AM [employer] ANATOMIC PATHOLOGY LABORATORY Embedded Images [facility] MANUAL 12/22/2024 10:50 AM EST [employer] [facility] ANATOMIC PATHOLOGY LABORATORY Resulting Agency Case was signed out at [facility], Department of Pathology, [employer] 3 CLIA [id number] [facility] MANUAL 12/22/2024 10:50 AM [employer] [facility] ANATOMIC PATHOLOGY LABORATORY Report Header Surgical Pathology Report ? Case: [id number] ? Authorizing Provider: ??Brock Cuadra MD ?Collected: ? 12/19/2024 1353 ? Ordering Location: ? [facility] ? Received: ?12/19/2024 1545 ? [facility] ? Dermatology Clinic 4th ? Floor ? Pathologist: ? Brock Lynch, DO ? Specimen: ?Skin, right chest ? 12/22/2024 10:50 AM EST [facility] ANATOMIC PATHOLOGY LABORATORY Skin Specimen from skin / Unknown 12/19/2024 1:53 PM EST 12/19/2024 3:45 PM EST us Brock Cuadra MD LAB PATHOLOGY/CYTOLOGY OR DERABLES Final Result [facility]ORAT[facility] [address] [place] [address], [facility] [address] [place] [address], * MOHS Surgery (12/19/2024) Narrative [facility] - 12/19/2024 Merlene Fernandez MA ? 12/19/2024 ??3:31 PM MOHS Surgery Date/Time: 12/19/2024 1:00 PM Performed by: Brock Cuadra MD Authorized by: Brock Cuadra MD ?? Procedure (Free Text): ??SCC Left Frontal Scalp, SCC Right Chest Patient identity confirmed?: ??Name and with patient and Verbally Written consent obtained?: ??Yes Risks and benefits discussed?: ??Yes Consent given by?: ??Patient Procedure consent matches procedure to be performed: ??Yes All relevant documents/tests are correctly identified, labeled, and matched to patient: ??Yes Relevant tests/ Imaging studies available/reviewed: ??Yes Correct site marked: ??Yes Required blood products, implants, devices and special equipment available: ??N/A Immediately prior to the procedure a time out was called: ??Yes An attending physician was present for the procedure OR the procedure was performed by an Advanced Practice Provider (Residents: A yes indicates you are attesting to the attending being present for the castro portions of the procedure. ??Checking yes when the attending was not present may result in fraudulent charges being submitted): Yes ?? Attending Provider:: ??Brock Cuadra Fellow: ??Sixto Nurse: ??White MOA: ??Lamourex, ??Guess Patient Fasting?: No ?? Allergies: Atorvastatin Implant Devices: ??Other (see comment) Other (comment): ??No Implanted Devices Blood Thinners?: Yes ?? Blood Thinners: ??ASA Joint Replacement?: No ?? Antibiotics Before the Dentist?: No ?? Cautery set up:: ??[facility] Grounding pad site:: ??Left Arm Surgical Prep: ??Povidine Iodine 16 mL lidocaine-epinephrine (PF) 1%-1:220,000 (PF) 1%-1:220,000 Patient Condition: ??Stable Wound Treated With:: ??Vaseline Bandages to remain in place for:: ??48 hours Follow up required:: ??As Needed Discharge: ??Patient tolerated the procedure well with no immediate complications, Pressure dressing applied, Wound care reviewed verbally and in writing and Patient discharged in good condition Procedure Note Merlene Fernandez MA - 12/19/2024 1:00 PM EST MOHS Surgery Date/Time: 12/19/2024 1:00 PM Performed by: Brock Cuadra MD Authorized by: Brock Cuadra MD Procedure (Free Text): SCC Left Frontal Scalp, SCC Right Chest Patient identity confirmed?: Name and with patient and Verbally Written consent obtained?: Yes Risks and benefits discussed?: Yes Consent given by?: Patient Procedure consent matches procedure to be performed: Yes All relevant documents/tests are correctly identified, labeled, andmatched to patient: Yes Relevant tests/ Imaging studies available/reviewed: Yes Correct site marked: Yes Required blood products, implants, devices and special equipmentavailable: N/A Immediately prior to the procedure a time out was called: Yes An attending physician was present for the procedure OR the procedure wasperformed by an Advanced Practice Provider (Residents: A yes indicates youare attesting to the attending being present for the castro portions of theprocedure. Checking yes when the attending was not present may result infraudulent charges being submitted): Yes Attending Provider:: Brock Cuadra Fellow: Sixto Nurse: Lizzy MOA: Nalini Reis Patient Fasting?: No Allergies: Atorvastatin Implant Devices: Other (see comment) Other (comment): No Implanted Devices Blood Thinners?: Yes Blood Thinners: ASA Joint Replacement?: No Antibiotics Before the Dentist?: No Cautery set up:: [facility] Grounding pad site:: Left Arm Surgical Prep: Povidine Iodine 16 mL lidocaine-epinephrine (PF) 1%-1:220,000 (PF) 1%-1:220,000 Patient Condition: Stable Wound Treated With:: Vaseline Bandages to remain in place for:: 48 hours Follow up required:: As Needed Discharge: Patient tolerated the procedure well with no immediatecomplications, Pressure dressing applied, Wound care reviewed verbally andin writing and Patient discharged in good condition us Brock Cuadra MD DERM PROCEDURE ORDERABLES Final Result [facility] documented in this encounter Visit Diagnoses Diagnosis Squamous cell carcinoma in situ (SCCIS) of scalp- Primary 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 Actinic skin damage documented in this encounter Administered Medications Inactive Administered Medications - up to 3 most recent administrations Medication Order MAR Action Action Date Dose Rate Site lidocaine-epinephrine (PF) 1%-1:220,000 (XYLOCAINE W/EPI) buffered injection 16 mL 16 mL, intradermal, One-time injection, Starting on Sun12/19/24 at 1300, 1 dose, Until Sun12/19/24 at 1300Indications: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
--- OUTSIDE RECORDS SUMMARY | 2025-01-15 18:53 | XMS_ITS | Encounter Summary ---
Author Organization [facility] Address [address] [place] [address] Care Team Providers Care Exhaust And Muffler Fitter Name Role Phone Irving Valentin Primary Care Provider [phone] Encounter Details Date Type Department Care Team (Late st Contact Info) Description 12/22/2024 Telephone [facility] [address]th [address] [place] [address], [place] [address] Assistant Professor Of Biochemistry: Francesca Herman MD [address] [place] [address] [place] [address] Social History Tobacco Use Types Packs/Day Years [...] encounter Miscellaneous Notes * Telephone Encounter - Francesca Henson MD - 12/22/2024 12:04 PM EST Post Operative Call Back Called patient one day after Mohs surgery to check in and make sure all was well. There have been no issues with bleeding or significant pain. Today he noted right sided back pain. His daughter was not sure if related but thought possibly MSK and recommended heating pad and tylenol. Noted I could not correlate the two unless he is moving or sleeping in a way that strains his back because of the chest surgery. Recommended reaching out to PCP if persistent or concerning to family. No further questions at this time. Discussed pathology report which was clear of any CA. Asked them to please call with any questions or concerns. Francesca Henson MD PGY5 MSDO Fellow, Dermatology documented in this encounter Plan of Treatment Upcoming Encounters Date Type Department Care Team (Late st Contact Info) Description 02/10/2025 11:15 AM EDT Follow-Up [facility] [address] [place] [phone] Assistant Professor Of Biochemistry: Bg Noland MD [address] [place] [phone] 06/29/2025 9:30 AM EDT Follow-Up [facility] [address] [place] [phone] Assistant Professor Of Biochemistry: Bg Noland MD [address] [place] [phone] documented as of this encounter Visit Diagnoses Not on filedocumented in this encounter Care Teams Exhaust And Muffler Fitter Relationship Specialty Start Date End Date Irving Valentin [address] [place] [address] [place] [address] PCP - General Internal Medicine 09/03/23 documented as of this encounter
--- OUTSIDE RECORDS SUMMARY | 2025-01-15 18:53 | XMS_ITS | Clinical Summary ---
Author Organization [facility] Address [address] [place] [address] Phone Care Team Providers Care Calciner Operator Name Role Phone Irving Valentin MD Primary Care Provider [phone] Allergies No known active allergies Medications allopurinol [...] age to complete this topic Insurance MEDICARE [facility] MEDICARE [facility] Care Teams Calciner Operator Relationship Specialty Start Date End Date Irving Valentin MD [facility] [address] [place], [place] PCP - General Internal Medicine 12/19/22
--- OUTSIDE RECORDS SUMMARY | 2025-01-15 18:53 | XMS_ITS ---
Author Organization [facility] Address [address] [place] [phone] Care Team Providers Care Track Superintendent Name Role Phone Irving Valentin MD Primary Care Provider Tre Guidry [phone] Encounters Encounter Location Date Provider Diagnosis [facility] [address] [place] [phone] 12/13/2023 Tre Moody PLAN OF TREATMENT No Information
--- OUTSIDE RECORDS SUMMARY | 2025-01-15 18:53 | XMS_ITS ---
Author Organization [facility] Address [address] [facility] [place] [address] Care Team Providers Care Prep Manager Name Role Phone Irving Valentin MD Primary Care Provider Unavaila Surinder Sierra Unavailable [phone] REASON FOR VISIT At Risk Footcare, Painful [...] Ordered Date Performed Result Body Sit e 80731-DCJGDLP NAIL, 6 OR MORE 09/19/2024 N/A 09206-Hesesgzr Plate 09/19/2024 N/A 90884-PPQL SKIN LESIONS, 2 TO 4 09/19/2024 N/A Encounters Encounter Location Date Provider Diagnosis [facility] [address] [place] [address] 09/19/2024 Surinderjeancarlos Knightier Atherosclerosis of [place] artery of both lower extremities, with unspecified presence of clinical manifestation I70.203 ; Tinea unguium B35.1 ; Pain in right toe(s) M79.674 ; Pain in left toe(s) M79.675 and Ingrown nail L60.0 Assessments Encounter Date Diagnosis (ICD Code) Assessment Notes Treatment Notes Treatment Clinical Notes Section Notes 09/19/2024 Atherosclerosis of [place] artery of both lower extremities, with unspecified presence of clinical manifestation (ICD-10 - I70.203) 09/19/2024 Tinea unguium (ICD-10 - B35.1) 09/19/2024 Pain in right toe(s) (ICD-10 - M79.674) 09/19/2024 Pain in left toe(s) (ICD-10 - M79.675) 09/19/2024 Ingrown nail (ICD-10 - L60.0) Plan Of Treatment Pending Test Test Name Order Date 46920-EEXHZES NAIL, 6 OR MORE 09/19/2024 61104-Nagvtivb Plate 09/19/2024 01942-ZDGX SKIN LESIONS, 2 TO 4 09/19/20 24 Next Appt Details Follow Up: prn, Reason: Provider Name:Surinder Adams Brar , 02/06/2025 12:30:00 PM, [address] [place] [address], [phone], Procedure Notes * Category Sub-Category Detail Notes [...] Motrin was recommended for pain or discomfort (94761) , CIRCULATION: Pt was advised as to [...] use of a nail nipper and/or dremel-type hull grinder, to a more viable healthy nail plate or bed tissue 6-10. Silver nitrate used for any petechial bleeding as necessary. Definitive antifungal treatment options have been reviewed and discussed with the patient. The patient chooses, no pharmaceutical tx - 53424 Keratoma Treatment Parring or Cutting o f Benign Hyperkeratotic Lesion(s) (-56) 2-4 Lesions - The Benign hyperkeratotic lesions, as described above were pared, and/or cut utilizing a sterile 15 blade, tissue nippers, and/or dremel - 93192 , Q8 Progress Notes * Bryce MEJIADOB:1945 ([age] yo M)Acc No.[id number]:09/19/2024 Progress Note Patient:?Bryce Mejia Provider:?Surinder Brar DPM :1945???Age:79 Y???Sex:Male Melo e:09/19/2024 Address:[address], [place], [place] Pcp:Irving Valentin MD Subjective: * Chief Complaints: [...] yard work,shopping. ?Marital status: . 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 * Medications:?TakingFolic Aci d Omeprazole aspirin baby [...] Assessment: 1.?Tinea unguium - B35.1?2.? Atherosclerosis of [place] artery of both lower extremities, with unspecified presence of clinical manifestation - I70.203?3.?Pain in right toe(s) - M79.674?4.?Pain in left toe(s) - M79.675?5.?Ingrown nail - L60.0, Lateral nail border, TA? Plan: * Treatment: 2.?Atherosclerosis of selawik artery of both lower extremities, with unspecified presence of clinical manifestation?Procedure: 93351-NUFM SKIN LESIONS, 2 TO 4 3.?Ingrown nail?Procedure: 90060-Jcrddibu Plate * Procedures:?Debride Nail 6-10:?Nail debridement?Performance of this nail treatment by a nonprofessional would put this patients foot and overall health at risk. Therefore, nail debridement was performed extensively to reduce/remove overall nail length, girth, thickness, subungual debris, and necrotic tissue, by manual and/or electrical means through the use of a nail nipper and/or dremel-type hull grinder, to a more viable healthy nail plate or bed tissue 6-10. Silver nitrate used for any petechial bleeding as necessary. Definitive antifungal treatment options have been reviewed and discussed with the patient. The patient chooses, no pharmaceutical tx - 29862.?Keratoma Treatment:?Parring or Cutting of Benign Hyperkeratotic Lesion(s)?(-56) 2-4 Lesions - The Benign hyperkeratotic lesions, as described above were pared, and/or cut utilizing a sterile 15 blade, tissue nippers, and/or dremel - 71505 , Q8.?Nail Avulsion:?Location?Lateral nail border , TA.?Anesthesia?2cc [...] Motrin was recommended for pain or discomfort (95349) , CIRCULATION: Pt was advised as to the risk of delayed or nonhealing due to circulation. Pt is to call the office with any questions, concerns, or complications.? * Procedure Codes:?45645 DEBRI DE NAIL, 6 OR MORE, Modifiers: XS 17459 Avulsion Plate, Modifiers: XS , DO68179 TRIM SKIN LESIONS, 2 TO 4, Modifiers: XS , Q8 * Follow Up:?prn * Images: * Sign off status: Completed true * Provider:?Surinder Brar DPM Date:?2023 Generated for Dinorah saldaña/Lester/Julia on:?01/15/2025 06:52 PM EST History and Physical Notes * HPI (History of Present Illness) Category Sub-Category Detail Notes Category Not es At Risk footcare Pt States Last PCP Visit: Date: Examination Category Sub-Category Detail Notes Category Not [...]
--- OUTSIDE RECORDS SUMMARY | 2025-01-15 18:53 | XMS_ITS | Clinical Summary ---
Author Organization [facility] Address [address] [place] [address] Care Team Providers Care Decision Unit Rn Name Role Phone Irving Valentin Primary Care Provider [phone] Allergies Active Allergy Reactions Criticality Noted Date [...] needed 454 g 3 11/06/20 23 Active triamcinolone acetonide (KENALOG) 0.1% creamIndications:Stefano matitis Apply to rash twice daily until flat and smooth. Do not use on face, in genital area or in skin folds. 454 g 11/14/20 23 Active folic acid (FOLVITE) 1 mg tabletIndications:De rmal hypersensitivity reaction Take ONE tablet daily on days when you DO NOT take methotrexate (i.e. 6 days per week) 24 tablet 5 10/14/20 24 Active methotrexate (TREXALL) 2.5 mg tabletIndications:De rmal hypersensitivity reaction Take 8 tablets (20 mg total) by mouth once a week. All on the same day each week. 10/15/20 24 Active fluorouraciL (EFUDEX) 5% cream Apply a tiny dab to affected area twice daily for 2 weeks. Redness and irritation is expected. 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 [address] [place] [phone] Monitoring Manager: Bg Noland MD 12/26/2024 myChart Message [facility] [address] [place] [phone] Monitoring Manager: Bg Noland MD My father's follow up appointment with you 12/22/2024 Telephone [facility] [address] [place] [phone] Monitoring Manager: Francesca Herman MD 12/19/2024 1:00 PM EST Procedure visit 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 [address] [place] [address], [place] [phone] Monitoring Manager: Bg Noland MD Biopsy Results 10/21/2024 Telephone [facility] [address], [place] [phone] Monitoring Manager: Haydee Fernandes LPN 10/15/2024 Zakada Message [facility] [address], [place] [address] Monitoring Manager: Bg Noland MD Methotrexate from Last 3 Months Immunizations Immunization Administration Dates Next Due Covid-19, Pfizer, mRNA, Woodruff valent, PF 30 mcg/0.3 mL dose (for [...] Info) Description 02/10/2025 11:15 AM EDT Follow-Up [facility] [address] [place] [phone] Monitoring Manager: Bg Noland MD [address] [place] [phone] 06/29/2025 9:30 AM EDT Follow-Up [facility] [address] [place] [phone] Monitoring Manager: Bg Noland MD [address] [place] [phone] Health Maintenance Due Date Last Done Comments Zoster Vaccines (1 of 2) 1993 Pneumococcal Vaccine: 50+ Years (2 of 2 - PCV) 01/05/2010 [...] Tdap) 05/26/2031 05/26/2021, 05/03/2018 Tobacco Screening 11/19/2042 12/19/2024 Influenza Vaccine Completed 08/30/2024, , 09/04/2022, Additional history exists Hepatitis B Vaccines Aged Out No long er eligible based on patient's age to complete this topic Procedures * Due to [place] [employer] law, this organization might not be sharing negative HIV tests. 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 * Tissue Exam (12/19/2024 1:53 PM EST) Final Diagnosis Skin, Right Chest, Excision: - No residual carcinoma is seen. - Biopsy site, excised. [facility] MANUAL 12/22/2024 10:50 AM EST [facility]VARADODanfoss IX[facility] Clinical History Specimen 1: Excision [facility] 12/22/2024 10:50 AM EST [facility] Gross Description 1. [...] face 1B-1F: Sequential cross-sections of remaining ellipse [employer] MANUAL 12/22/2024 10:50 AM Proginet [employer] ANATOMIC PATHOLOGY LABORATORY Gross Description User Grossing complete by Chiara Daniel on 12/19/2024 3:52 PM [employer] MANUAL 12/22/2024 10:50 AM LoHariaLA [employer] ANATOMIC PATHOLOGY LABORATORY Embedded Images [facility] [employer]ox 12/22/2024 10:50 AM EST [employer] THREE ANATOMIC PATHOLOGY LABORATORY Resulting Agency Case was signed out at [facility], Department of Pathology, Biotech 3 [facility] [id number] [facility] MANUAL 12/22/2024 10:50 AM Fantasy [employer]pper [facility] ANATOMIC PATHOLOGY LABORATORY Report Header Surgical Pathology Report ? Case: [id number] ? Authorizing Provider: ??Brock Cuadra MD ?Collected: ? 12/19/2024 1353 ? Ordering Location: ? [facility] ? Received: ?12/19/2024 1545 ? [facility] ? Dermatology Clinic 4th ? Floor ? Pathologist: ? Brock Lynch, DO ? Specimen: ?Skin, right chest ? 12/22/2024 10:50 AM EST [facility] [employer] [facility] ANATOMIC PATHOLOGY LABORATORY Skin Specimen from skin / Unknown 12/19/2024 1:53 PM EST 12/19/2024 3:45 PM EST us Brock Cuadra MD LAB PATHOLOGY/CYTOLOGY OR DERABLES Final Result [facility] [employer] [facility] ANATOMIC PATHOLOGY LABORATORY [address] [place] [address], [place] [facility]OLOG[facility] LABORATORY [address] [place] [address], * MOHS Surgery (12/19/2024) Narrative PROVATION - [...] the Dentist?: No ?? Cautery set up:: ??[facility] Grounding pad site:: ??Left Arm Surgical [...] discharged in good condition Procedure Note Merlene Yonathan NBA Fernandez - 12/19/2024 1:00 PM EST MOHS Surgery [...] Provider:: Brock Cuadra Fellow: Sixto Nurse: Lizzy BOYCE: Nalini Reis Patient Fasting?: No Allergies: Atorvastatin Implant Devices: Other (see comment) Other (comment): No Implanted Devices Blood Thinners?: Yes Blood Thinners: ASA Joint Replacement?: No Antibiotics Before the Dentist?: No Cautery set up:: [facility] Grounding pad site:: Left Arm Surgical [...] MD DERM PROCEDURE ORDERABLES Final Result PROVATION * (ABNORMAL) Comprehensive Metabolic Panel (10/14/2024 12:49 PM EST) NA 141 135 - 145 mmol/L 10/14/2024 4:02 PM EST [facility] [employer] CLINICAL PATHOLOGY LABORATORY K 3.5 3.5 - 5.3 mmol/L 10/14/2024 4:02 PM EST [facility] [employer] LABOR[facility] Cl 100 98 - 107 mmol/L 10/14/2024 4:02 PM EST [facility] [employer] CO2 28 22 - 32 mmol/L 10/14/2024 4:02 PM EST [facility] [employer] [employer] CL[facility] LAB[facility] Anion Gap 13 5 - 15 [facility]UAL 10/14/2024 4:02 PM EST [employer] [employer] [employer] CLINICAL PATHOLOG[facility] LABORATORY Glucose 96 65 - 99 mg/dL 10/14/2024 4:02 PM EST [facility] [employer] [employer] CL[facility] PATHOLOG[facility] LABOR[facility] Creatinine 1.17 0.60 - 1.30 mg/dL 10/14/2024 4:02 PM EST [facility] [employer] [employer] CL[facility] LABORAT[facility] Calcium 9.6 8.6 - 10.5 mg/dL 10/14/2024 4:02 PM EST [employer] [facility] [employer] [employer] CLINICAL PATHOLOG[facility] LABORATORY Total Protein 6.5 6.0 - 8.0 g/dL 10/14/2024 4:02 PM EST [employer] [facility] [employer] [employer] CLINICAL PATHOLOG[facility] LABORAT[facility] Albumin 4.1 3.5 - 5.2 g/dL 10/14/2024 4:02 PM EST [employer] [facility] [employer] [employer] CLINICAL PATHOLOGY LABORATORY Bilirubin, Total 0.8 0.2 - 1.2 mg/dL 10/14/2024 4:02 PM EST [facility] [employer] [employer] CL[facility]ICAL PATHOLOG[facility] LABORATORY Alkaline Phosphatase 78 35 - 129 U/L 10/14/2024 4:02 PM EST [facility] [employer] CLINICAL PATHOLOGY LABORATORY AST 26 10 - 40 U/L 10/14/2024 4:02 PM EST [facility] [employer] CLINICAL PATHOLOG[facility] LABORAT[facility] ALT 22 10 - 40 U/L 10/14/2024 4:02 PM EST [facility] [employer] [employer] CLINICAL PATHOLOG[facility] LABORATORY BUN 26(H) 7 - 23 mg/dL 10/14/2024 4:02 PM EST [employer]ae [employer]RIL[employer] CLINICAL PATHOLOGY LABORATORY eGFR 63 >=60 mL/min/1. 73m2 [facility] MANUAL 10/14/2024 4:02 PM EST [facility] Sensor [facility]CR[facility] [employer] CLINICAL PATHOLOGY LABORATORY Comment:The estimated glomer ular [...] Globulin, Total 2.4 2.1 - 4.2 g/dL [facility] MANUAL 10/14/2024 4:02 PM EST [facility]CR[facility] [employer] CLINICAL PATHOLOGY LABORATORY A/G Ratio 1.7 1.5 - 3.0 [facility] MANUAL 10/14/2024 4:02 PM EST [facility]CR[facility] [employer] CLINICAL PATHOLOGY LABORATORY Blood Structure of peripheral vein / Unknown Venipuncture / Unknown 10/14/2024 12:49 PM EST 10/14/2024 12:53 PM EST us Bg Clinton MD LAB BLOOD ORDERABLES Final Res ult [facility] [employer] CLINICAL PATHOLOGY LABORATORY [address] [place] [address], from Last 3 Months or Most Recently Relevant to Health Maintenance Insurance MEDICARE BCBS MCR SUPP Care Teams Decision Unit Rn Relationship Specialty Start Date End Date Irving Valentin [address] [place] [address] [place] [address] PCP - General Internal Medicine 09/03/23
--- OUTSIDE RECORDS SUMMARY | 2025-01-15 18:53 | XMS_ITS | Referral Summary ---
Author Organization [facility] Address [address] [place] [address] Care Team Providers Care Casing Operator Name Role Phone Irving Valentin Primary Care Provider [phone] Encounters Date Type Department Care Team Description 12/30/2024 Telephone [facility] [address] [place] [phone] Microscopist: Bg Noland MD 12/26/2024 Lagan Technologiest Message [facility] [address] [place] [address] [phone] Microscopist: Bg Noland MD My father's follow up appointment with you 12/22/2024 Telephone [facility] [address] [place] [phone] Microscopist: Francesca Herman MD 12/19/2024 1:00 PM EST Procedure visit [facility] [address] [place] [address] [phone] Microscopist: Brock Goodman MD 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); 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 10/15/20 Active fluorouraciL (EFUDEX) 5% cream Apply a tiny dab to affected area twice daily for 2 weeks. Redness and irritation is expected. 40 g 12/19/19 Active Hospital, Clinic, or Other Facility Administered [...] Stage 3a chronic kidney disease 01/24/2023 Immunizations Immunization Administration Dates Next Due Covid-19, Pfizer, mRNA, [place] valent, PF 30 mcg/0.3 mL dose (for [...] Info) Description 02/10/2025 11:15 AM EDT Follow-Up [facility] [address] [place] [address] [phone] Microscopist: Bg Noland MD [address] [place] [phone] 06/29/2025 9:30 AM EDT Follow-Up [facility] [address] [place] [address] [phone] Microscopist: Bg Noland MD [address] [place] [phone] Procedures * Due to [place] state law, this [...] to Health Maintenance Results * Due to [place] state law, this organization might not be sharing negative HIV tests. * Tissue Exam (12/19/2024 1:53 PM EST) Final Diagnosis Skin, Right Chest, Excision: - No residual carcinoma is seen. - Biopsy site, excised. [facility] 12/22/2024 10:50 AM EST [employer] [facility] Clinical History Specimen 1: Excision SCCis [facility] 12/22/2024 10:50 AM EST [facility] Gross Description 1. [...] face 1B-1F: Sequential cross-sections of remaining ellipse [facility] 12/22/2024 10:50 AM EST [facility] LAB[facility] Gross Description User Grossing complete by Chiara Daniel on 12/19/2024 3:52 PM [facility] 12/22/2024 10:50 AM EST [facility] [employer] [facility] Embedded Images [facility] 12/22/2024 10:50 AM EST [employer] [facility] LAB[facility] Resulting Agency Case was signed out at [facility], Department of Pathology, [employer] 3 CLIA [id number] [facility] MAN[facility] 12/22/2024 10:50 AM EST [employer] [facility]OLOG[facility] LABORAT[facility] Report Header Surgical Pathology Report ? Case: [id number] ? Authorizing Provider: ??Brock Cuadra MD ?Collected: ? 12/19/2024 1353 ? Ordering Location: ? [facility] ? Received: ?12/19/2024 1545 ? [facility]- [facility] ? Dermatology Clinic 4th ? Floor ? Pathologist: ? Brock Unger. Cris, DO ? Specimen: ?Skin, right chest ? 12/22/2024 10:50 AM EST [facility] Skin Specimen from skin / Unknown 12/19/2024 1:53 PM EST 12/19/2024 3:45 PM EST us Brock Cuadra MD LAB PATHOLOGY/CYTOLOGY OR DERABLES Final Result [employer] [facility] [address] [place] [address], [facility] [address] [place] [address], * MOHS Surgery (12/19/2024) Narrative PROVATION - [...] Attending Provider:: ??Brock Cuadra Fellow: ??Sixto Nurse: ??Lizzy MOA: ??Lamfalguniex, ??Guess Patient Fasting?: No ?? Allergies: Atorvastatin [...] Brock Cuadra Fellow: Sixto Nurse: Lizzy MOA: Lamourex, Guess Patient Fasting?: No Allergies: Atorvastatin Implant Devices: [...] - 145 mmol/L 10/14/2024 4:02 PM EST [facility] [employer] [facility] [facility] [employer] [facility] LAB[facility] K 3.5 3.5 - 5.3 mmol/L 10/14/2024 4:02 PM EST [employer] [facility] [employer] [facility] LAB[facility] Cl 100 98 - 107 mmol/L 10/14/2024 4:02 PM EST [employer] [employer] [facility] CO2 28 22 - 32 mmol/L 10/14/2024 4:02 PM EST [facility] [employer] [facility] [employer] [facility] Anion Gap 13 5 - 15 [place] MANUAL 10/14/2024 4:02 PM EST [employer] [employer] [facility] Glucose 96 65 - 99 mg/dL 10/14/2024 4:02 PM EST [employer] [facility] [employer] CL[facility]OLOG[facility] LAB[facility] Creatinine 1.17 0.60 - 1.30 mg/dL 10/14/2024 4:02 PM EST [employer] CL[facility] PATHOLOG[facility] LAB[facility] Calcium 9.6 8.6 - 10.5 mg/dL 10/14/2024 4:02 PM EST [employer] CL[facility]ICAL PATHOLOGY LABORAT[facility] Total Protein 6.5 6.0 - 8.0 g/dL 10/14/2024 4:02 PM [facility] [employer] CL[facility]ICAL PATHOLOG[facility] LABOR[facility] Albumin 4.1 3.5 - 5.2 g/dL 10/14/2024 4:02 PM [facility] Bilirubin, Total 0.8 0.2 - 1.2 mg/dL 10/14/2024 4:02 PM EST [facility] [employer] [facility] Alkaline Phosphatase 78 35 - 129 U/L 10/14/2024 4:02 PM EST [facility] [facility] AST 26 10 - 40 U/L 10/14/2024 4:02 PM EST [employer] [facility] ALT 22 10 - 40 U/L 10/14/2024 4:02 PM [facility] [employer] [facility] BUN 26(H) 7 - 23 mg/dL 10/14/2024 4:02 PM [facility] [employer] [facility] eGFR 63 >=60 mL/min/1. 73m2 [facility] MANUAL 10/14/2024 4:02 PM [facility] Comment:The estimated glomer ular [...] Globulin, Total 2.4 2.1 - 4.2 g/dL [facility] MAN[facility] 10/14/2024 4:02 PM [facility] [facility] A/G Ratio 1.7 1.5 - 3.0 [facility] MANUAL 10/14/2024 4:02 PM [facility] [employer] [facility] Blood Structure of peripheral vein / Unknown Venipuncture / Unknown 10/14/2024 12:49 PM EST 10/14/2024 12:53 PM EST us Bg Clinton MD LAB BLOOD ORDERABLES Final Res ult [facility] [address] [place] [address], [place] from Last 3 Months or Most Recently Relevant to Health Maintenance Insurance MEDICARE [facility] Care Teams Casing Operator Relationship Specialty Start Date End Date Irving Valentin [address] [place] [address] [place] [address] PCP - General Internal Medicine 09/03/23
--- OUTSIDE RECORDS SUMMARY | 2025-01-15 18:53 | XMS_ITS ---
Author Organization [facility] Address [address] [place] [phone] Care Team Providers Care Engraving Plate Maker Name Role Phone Irving Valentin MD Primary Care Provider Tre Guidry [phone] ALLERGIES No Known Allergies REASON FOR VISIT [...] Orally Every morning 09/27/2023 Active VITAL SIGNS Temperature 97.5 degrees Fahrenheit 02/05/20 24 Blood pressure systolic 00 mm Hg 02/05/20 24 Blood pressure diastolic 00 mm Hg 024 Height 70.25 in 02/05/2024 Weight 222 lbs 02/05/2024 BMI 31.62 kg/m2 02/05/2024 Encounters Encounter Location Date Provider Diagnosis [facility] [address] [place] [phone] 02/05/2024 Tre [place] Gastroesophageal ref lux disease, [...]
--- OUTSIDE RECORDS SUMMARY | 2025-01-15 18:53 | XMS_ITS | Encounter Summary ---
Author Organization [facility] Address [address] [place] [address] Care Team Providers Care Manager Of Community Relations Name Role Phone Irving Valentin Primary Care Provider [phone] Encounter Details Date Type Department Care Team (Late st Contact Info) Description 12/26/2024 myChart Message [facility] [address]th [address] [place] [address], [place] [phone] Records Section Supervisor: Bg Noland MD [address] [place] [phone] My father's follow up appointment with you Social History Tobacco Use Types Packs/Day Years [...] Telephone Encounter - Sylwia Mon - 12/30/2024 8:30 AM EST Added patient to 02/10 11:15, you are now double booked at that time FYI documented in this encounter Plan of Treatment Upcoming Encounters Date Type Department Care Team (Late st Contact Info) Description 02/10/2025 11:15 AM EDT Follow-Up [facility] [address] [place] [address], [place] [phone] Records Section Supervisor: Bg Noland MD [address] [place] [phone] 06/29/2025 9:30 AM EDT Follow-Up [facility] [address], [place] [phone] Records Section Supervisor: Bg Noland MD [address] [place] [phone] documented as of this encounter Visit Diagnoses Not on filedocumented in this encounter Care Teams Manager Of Community Relations Relationship Specialty Start Date End Date Irving Valentin [address] [place] [address] [place] [address] PCP - General Internal Medicine 09/03/23 documented as of this encounter
--- OUTSIDE RECORDS SUMMARY | 2025-01-15 18:53 | XMS_ITS ---
Author Organization [facility] Address [address] [place] [address] Care Team Providers Care Experimental Physicist Name Role Phone Irving Valentin MD Primary Care Provider Unavaila Tre Brewster [phone] REASON FOR VISIT reflux Encounters Encounter Location Date Provider Diagnosis [facility] [address] [place] [address] 01/29/2024 Tre [place] PLAN OF TREATMENT No Information
[2025-01-15 18:55] VITALS: BP 153/83; PULSE 72; RESP 16; TEMP 37; O2SAT 98
== END 2025-01-15 19:00 | disposition home or self-care (01) ==
PROVIDERS: Emergency Provider Student in an Organized Health Care Education/Training Program; PCP Internal Medicine
DX: H54.61 Unqualified visual loss, right eye, normal vision left eye (principal); H53.8 Other visual disturbances
CPT/HCPCS: 99282; 99284

== ENCOUNTER 2025-03-23 14:03 | Outpatient (AMB) | payer MEDICARE, SELFPAY ==
--- NOTE | 2025-03-23 14:10 | A.OFFPC_ITS ---
Vital Signs 03/23/25 14:12 Height 5 ft 11 in Weight 207 lb BMI 28.9 BP 110/68 Blood Pressure Location Lt brachial Position Sitting Pulse 68 Pulse Source Pulse Oximeter Temp 97.5 F Temp Source Temporal Artery Scan Pulse Oximetry (%) 97 Oxygen Delivery Method Room Air Intake Visit Reasons: f/u HTN Intake Note: Patient is here to follow up on HTN and LORRAINE from Dr Valentin. 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 Transportation Operator: Present Accompanied by: Daughter Allergies allopurinol Adverse Reaction (Mild, Verified 03/23/25 14:11) Rash atorvastatin Adverse Reaction (Mild, Verified 03/23/25 14:11) Rash Tobacco use date assessed: 03/23/25 Fall risk assessment: No Falls in past year Last assessed Fall Risk: 03/23/25 Dental Screening Dental Screen Date: 03/23/25 Did you have a dental visit in the last 12 months?: Yes Did you have a dental problem in the last 6 months where you did not have access to dental care?: No Was dental information given to patient?: Patient has dentist HPI f/u HTN HPI Details 79 year old male with past history of hy pertension, hyperlipidemia, pulmonary hypertension, hx of gastric ulcer with GERD, CAD, BPH last seen 08/2024 coming in for follow up. Seen by cardiology 08/2024 no changes patient stable. Seen by gen surg 08/2024 s/p vangie lisa 09/02/2024 doing well follow up as needed. Seen by urology 11/2024 Flomax was discontinued and patient doing well without symptoms advised to follow up prn. Patient was seen in [facility] 01/15/2025 for acute vision loss workup reassuring advised to follow up with Ophthalmology. Presenting for follow-up on blood pressure management. He has an extensive history of glaucoma in the right eye, leading to an emergency visit occasioned by vision impairment, which was diagnosed as end-stage glaucoma. Brimonidine eye drops are prescribed for management. Hypertension is an ongoing concern; past management has involved adjustment from lisinopril to carvedilol following episodes of high blood pressure and kidney impairment. Hearing impairment is accompanied by issues with itchiness and a decreased production of earwax, exacerbated by wearing hearing aids. The patient has multiple squamous cell carcinomas that have been treated with Mohs surgery and uses Effidex cream for topical chemotherapy, targeting lesions on his head. He follows with [facility] dermatology. [facility] Medical History Cholecystitis GEOVANNI (obstructive sleep apnea) Obesity (BMI 30.0-34.9) Renal insufficiency Hx of skin pruritus Gout Gastric ulcer Obesity Pulmonary hypertension Essential hypertension HLD (hyperlipidemia) Surgical History Hx of cholecystectomy H/O colonoscopy H/O foot surgery History of cataract surgery Family History Father No problems noted. Mother Colon cancer Sister Colon cancer Brother Stomach cancer Social History Household Members: None Housing: House Do you presently have visiting nurse or other home services: No Alcohol intake: never Comment: 2 MTHS AGO Patient Tobacco Use Status: Former Tobacco user e-Cigarette/Vaping Use: Never Used Second Hand Smoke Exposure: Yes Advance Directives Date on File: 08/23/20 service: No Current occupational status: retired Cognitive needs: Yes (Walker) Hearing needs: No Vision needs: Yes (Glasses) Questionnaire PHQ-9 Over the last 2 weeks, how often have you been bothered by any of the following problems? 1. Little interest or pleasure in doing things: not at all 2. Feeling down, depressed, or hopeless: not at all 3. Trouble falling or staying asleep, or sleeping too much: not at all 4. Feeling tired or having little energy: not at all 5. Poor appetite or overeating: not at all 6. Feeling bad about yourself - or that you are a failure or have let yourself or your family down: not at all 7. Trouble concentrating on things, such as reading the newspaper or watching television: not at all 8. Moving or speaking so slowly that other people could have noticed. Or the opposite - being so fidgety or restless that you have been moving around a lot more than usual: not at all 9. Thoughts that you would be better off or of hurting yourself in some way: not at all Total score: 0 Depression Screening Interpretation: Negative Depression Screening Done: Yes Source: Developed by Drs. Tre Salvador, Ruth Conrad, Talib Gregory and colleagues, with an educational arnoldo from [employer]. Thrive Questionnaire Date Thrive assessed: 03/18/25 I am a: Patient What is your living situation today?: I have a steady place to live Within the past 12 months, did the food you bought not last and you didn't have the money to get more?: Never true Within the past 12 months, did you worry whether your food would run out before you got money to buy more?: Never true Do you have trouble paying for medicines?: No Do you have trouble getting transportation to medical appointments?: No Do you have trouble paying your heating and electricity bill?: No Do you have trouble taking care of your child, family member or friend?: I choose not to answer this question Do you have trouble with day-to-day activities such as bathing, preparing meals, shopping, managing finances, etc.?: No Are you currently unemployed and looking for a job?: No Are you interested in more education?: No Please select the resources that you would like help with: None Currently or been in a relationship where the following occur: No concerns reported THRIVE Score: 0 AUDIT C Alcohol Use Questionnaire (AUDIT-C) 1. How often do you have a drink containing alcohol?: Monthly or less 2. How many drinks containing alcohol do you have on a typical day when you are drinking?: 1 or 2 3. How often do you have six or more drinks on one occasion?: Never Total Score: 1 RACHEL-7 AMB Questionnaire RACHEL-7 Date RACHEL - 7 assessed: 03/23/25 Feeling nervous, anxious, or on edge: 0 = Not at all Not being able to stop or control worryin = Not at all Worrying too much about different things: 0 = Not at all Trouble relaxin = Not at all Being so restless that it is hard to sit still: 0 = Not at all Becoming easily annoyed or irritable: 0 = Not at all Feeling afraid as if something awful might happen: 0 = Not at all Total RACHEL-7 score (0-4 normal; 5-9 mild; 10-14 moderate; 15-21 severe): 0 Source: Developed by Ruth Hitchcock.W. [place], Talib Gregory and colleagues, with an educational arnoldo from [employer]. Review of Systems Const Denies body aches, Denies chills, Denies fever(s), Denies headache(s) and Denies poor appetite Eyes Reports no additional complaints ENT Denies dysphagia, Denies dizziness, Denies headache(s) and Denies odynophagia Card Denies chest pain, Denies syncope, Denies edema, Denies irregular heart rhythm, Denies lightheadedness and Denies dyspnea Resp Denies cough and Denies dyspnea GI Denies abdominal pain, Denies constipation, Denies dysphagia, Denies diarrhea, Denies nausea, Denies odynophagia and Denies vomiting Reports no additional complaints Musc Reports no additional complaints and Denies abnormal gait Skin/Breast Reports system reviewed and no additional complaints, except as documented Neuro Denies abnormal gait, Denies dizziness, Denies syncope and Denies headache(s) Psych Reports no additional complaints Physical exam (Primary Care) Vital Signs: Last Vital Signs Temp 97.5 F 03/23/25 14:12 Pulse 68 03/23/25 14:12 BP 110/68 03/23/25 14:12 Pulse Ox 97 03/23/25 14:12 Oxygen Delivery Method Room Air 03/23/25 14:12 BMI result Body Mass Index 28.9 Tobacco/Smoking Status: Tobacco use Status Tobacco use date assessed 03/23/25 03/23/25 14:16 Patient Tobacco Use Status Former Tobacco user 03/23/25 14:16 Tobacco use type 08/22/23 16:24 e-Cigarette/Vaping Use Never Used 03/23/25 14:16 PHQ-9: PHQ-9 Score PHQ-9: Total score 0 03/23/25 14:16 Depression Screening Interpretation: Negative Thrive Assessment: Date of Thrive Assessment Date Thrive assessed 03/18/25 03/23/25 14:16 Currently or been in a relationship where the following occur: No concerns reported Const General: cooperative, healthy appearing, comfortable and no acute distress Orientation/consciousness: patient oriented x3 HENMT Head: Yes normocephalic Ears: hearing grossly normal bilaterally, TM's normal bilaterally and EAC's normal General nose exam: Normal external nose present Eyes General: appearance normal, both eyes and all related structures Conjunctivae: conjunctivae normal Neck Neck: Yes full ROM and Yes no lymphadenopathy Resp Effort & Inspection: normal respiratory effort Auscultation: clear to auscultation bilaterally, no crackles, no rales, no rhonchi and no wheezes Cardio Rate: regular rate Rhythm: regular rhythm Skin General skin exam: no rashes or lesions noted Neuro General: patient oriented x3 Gait exam (Neuro): Normal gait present Extrem General: Yes normal to inspection, Yes full ROM and No edema Psych Affect: normal affect Attitude: cooperative Insight: Good insight present (Psych) Judgement: Good judgement present (Psych) Coding Level of Care Code Est Pt Level 3 (23683) Diagnoses CAD (coronary artery disease) I25.10 GEOVANNI (obstructive sleep apnea) G47.33 Obesity (BMI 30.0-34.9) E66.9 Pulmonary hypertension I27.20 Essential hypertension I10 Cholecystitis K81.9 Glaucoma H40.9 Ear itching L29.9 Assessment & Plan Assessment & Plan (1) CAD (coronary artery disease): Code(s): I25.10 - Atherosclerotic heart disease of [place] coronary artery without angina pectoris Category: Medical Plan: Advised good control of blood pressure, cholesterol and blood sugars. (2) GEOVANNI (obstructive sleep apnea): Comment: KNOWN CASE OF OBSTRUCTIVE SLEEP APNEA. WELL TREATED WITH USE OF CPAP . NORMALLY HE USES CPAP EVERY NIGHT REGULARLY. USING CPAP ON AN AVERAGE FOR 5 HOURS EVERY NIGHT. DENIES DAYTIME SLEEPINESS. Code(s): G47.33 - Obstructive sleep apnea (adult) (pediatric) Category: Medical Plan: Uses CPAP faithfully at least 4 hours a night and benefits from this therapy. Continue to follow with pulmonology has a appointment upcoming (3) Obesity (BMI 30.0-34.9): Comment: PATIENT IS MODERATELY OBESE, THIS IS PARTLY DUE TO EDEMA OF LOWER EXTREMITIES. HE IS NOT FIT TO DO MUCH EXERCISE OR EVEN WALK. SO I DO NOT EXPECT HIM TO LOSE MUCH WEIGHT, EXCEPT WITH DIURESIS. Code(s): E66.9 - Obesity, unspecified Category: Medical Plan: Healthy diet and regular exercise is encouraged. (4) Pulmonary hypertension: Comment: REPORTED IN ECHOCARDIOGRAM STUDY THAT HE HAS MILD PULMONARY HYPERTENSION. WITH THE USE OF CPAP THERAPY IT IS EXPECTED TO IMPROVE. Code(s): I27.20 - Pulmonary hypertension, unspecified Category: Medical Plan: Continue to follow up with pulmonology. (5) Essential hypertension: Code(s): I10 - Essential (primary) hypertension Category: Medical Plan: Continue on current blood pressure medication. Avoid salt intake and encourage healthy diet and regular exercise. Blood pressure at goal today. (6) Cholecystitis: Code(s): K81.9 - Cholecystitis, unspecified Category: Medical Plan: Has been doing well status post cholecystectomy. Denies any fevers, abdominal pain, nausea, vomiting or diarrhea postoperatively. He was seen by General surgery for postop doing well advised to follow up as needed (7) Glaucoma: Comment: 10% vision left of the right eye Code(s): H40.9 - Unspecified glaucoma Category: Medical Plan: Patient is currently following with results technician and on brimonidine drops. He has a appointment coming up to evaluate the left eye. (8) Ear itching: Code(s): L29.9 - Pruritus, unspecified Category: Medical Plan: Patient does use hearing aids and often cleans his ears with Q-tips. I advised against the use of Q-tips as they can dry out the ear canal and cause itching. Advised patient he may use lotion on the outside of the ear to relieve the itching. Plan Management of hypertension involves ongoing medication adjustment in relation to carvedilol. Glaucoma in the right eye is treated with brimonidine drops, with planning for additional ophthalmologic evaluation to assess changes in eye disease, especially for potential issues with the left eye. Ear care is guided more by avoidance of Q-tip usage, suggesting lotion for the ear canal dryness. Dermatologic care continues with Le following Mohs surgery for squamous cell carcinoma. Follow-up blood work will include fasting lipid profiles and assessments of primary parameters, taking care not to overlap with RUST methotrexate-related assessments. An interval of six months was established for future follow-ups, though readiness for earlier visits remains if new concerns arise. This note was constructed using voice recognition software. While every effort has been made to ensure accuracy and communications tower technician, still areas may have been included sometimes these areas may affect the content or meeting of the given symptoms. Total time spent caring for the patient today was 30 minutes. This includes time spent before the visit reviewing the chart, time spent during the visit, and time spent after the visit and documentation. Orders: Orders Vitamin B12 and Folate Today Z00.00 - Encounter for general adult medical examination without abnormal findings Lipid Panel Today E78.00 - Pure hypercholesterolemia, unspecified, E78.5 - Hyperlipidemia, unspecified Vitamin D 25-OH Total Today Z00.00 - Encounter for general adult medical examination without abnormal findings TSH reflex Free T4 Today Z00.00 - Encounter for general adult medical examination without abnormal findings Free T4 (Free Thyroxine) Today Z00.00 - Encounter for general adult medical examination without abnormal findings
[2025-03-23 14:12] VITALS: BP 110/68; PULSE 68; TEMP 36.4; O2SAT 97; BMI 28.9
--- OUTSIDE RECORDS SUMMARY | 2025-03-23 15:39 | XMS_ITS ---
Author Organization [facility] Address [address] [place] [phone] Care Team Providers Care Manager Project Management Name Role Phone Irving Valentin MD Primary Care Provider Tre Guidry [phone] Allergies No Known Allergies REASON FOR VISIT Patient presents today for dysphagia Medications Medication SIG (Take, Route, Frequency, Duration) [...] MG 1 Orally Every morning 09/27/2023 Active Vital Signs Temperature 97.5 degrees Fahrenheit 02/05/20 24 Blood pressure systolic 00 mm Hg 02/05/20 24 Blood pressure diastolic 00 mm Hg 024 Height 70.25 in 02/05/2024 Weight 222 lbs 02/05/2024 BMI 31.62 kg/m2 02/05/2024 Encounters Encounter Location Date Provider Diagnosis [facility] [address] [place] [phone] 02/05/2024 Tre Moody Gastroesophageal ref lux disease, unspecified whether esophagitis present K21.9 and Gastroesophageal reflux disease without esophagitis K21.9 Assessments Encounter Date Diagnosis (ICD Code) Assessment Notes Treatment Notes Treatment Clinical Notes Section Notes 02/05/2024 Gastroesophageal reflux disease, unspecified whether esophagitis present (ICD-10 - K21.9) Overall, Antonio appears very well. He does continue to have some symptoms of reflux and indigestion, but generally things seem to be much better than they were last Fall. He does seem to have improved on the omeprazole. We did review the endoscopy and the barium swallow findings. I am not certain as to whether or not the esophageal balloon dilation gave him any symptomatic improvement but nonetheless he does feel better since that time and with the use of omeprazole. At this point I advised him and Valentin that I think he has some component of gastroesophageal reflux and some nonspecific esophageal dysmotility. I don't think the small Zenker's diverticulum seen on the recent Barium swallow is of any clinical significance based on his clinical history and the description on the Barium swallow. However, it does seem that his symptoms are much better with the acid suppression. As such, I did advise him to continue the omeprazole once or twice a day. I also advised him to use TUMS as needed since that does seem to give him some symptomatic relief as well. I don't think any further diagnostic tests are required given his excellent clinical appearance and his current stable clinical history. If things remain well I advised him to see me on a p.r.n. basis. I advised him to certainly call if he has any problems or questions I can be of assistance with. Antonio and his daughter were comfortable with this plan. Thank you again for allowing me to have participated in Antonio's care. I shall continue to keep you advised of his progress as needed. Please do not hesitate to contact me if I cn be of any further ssistance in the future. 02/05/2024 Gastroesophageal reflux disease without esophagitis (ICD-10 - K21.9) Overall, Antonio appears very well. He does continue to have some symptoms of reflux and indigestion, but generally things seem to be much better than they were last Fall. He does seem to have improved on the omeprazole. We did review the endoscopy and the barium swallow findings. I am not certain as to whether or not the esophageal balloon dilation gave him any symptomatic improvement but nonetheless he does feel better since that time and with the use of omeprazole. At this point I advised him and Valentin that I think he has some component of gastroesophageal reflux and some nonspecific esophageal dysmotility. I don't think the small Zenker's diverticulum seen on the recent Barium swallow is of any clinical significance based on his clinical history and the description on the Barium swallow. However, it does seem that his symptoms are much better with the acid suppression. As such, I did advise him to continue the omeprazole once or twice a day. I also advised him to use TUMS as needed since that does seem to give him some symptomatic relief as well. I don't think any further diagnostic tests are required given his excellent clinical appearance and his current stable clinical history. If things remain well I advised him to see me on a p.r.n. basis. I advised him to certainly call if he has any problems or questions I can be of assistance with. Antonio and his daughter were comfortable with this plan. Thank you again for allowing me to have participated in Antonio's care. I shall continue to keep you advised of his progress as needed. Please do not hesitate to contact me if I cn be of any further ssistance in the future. 02/05/2024 Other Use TUMS as needed for any nausea or indigestion. Call me if problems Overall, Antonio appears very well. He does continue to have some symptoms of reflux and indigestion, but generally things seem to be much better than they were last Fall. He does seem to have improved on the omeprazole. We did review the endoscopy and the barium swallow findings. I am not certain as to whether or not the esophageal balloon dilation gave him any symptomatic improvement but nonetheless he does feel better since that time and with the use of omeprazole. At this point I advised him and Valentin that I think he has some component of gastroesophageal reflux and some nonspecific esophageal dysmotility. I don't think the small Zenker's diverticulum seen on the recent Barium swallow is of any clinical significance based on his clinical history and the description on the Barium swallow. However, it does seem that his symptoms are much better with the acid suppression. As such, I did advise him to continue the omeprazole once or twice a day. I also advised him to use TUMS as needed since that does seem to give him some symptomatic relief as well. I don't think any further diagnostic tests are required given his excellent clinical appearance and his current stable clinical history. If things remain well I advised him to see me on a p.r.n. basis. I advised him to certainly call if he has any problems or questions I can be of assistance with. Antonio and his daughter were comfortable with this plan. Thank you again for allowing me to have participated in Antonio's care. I shall continue to keep you advised of his progress as needed. Please do not hesitate to contact me if I cn be of any further ssistance in the future. Plan Of Treatment Medication Medication Name Sig Start Date Stop Date Notes Omeprazole 40 MG 1 Orally Every morning 09/27/2023 Treatment Notes Assessment Notes Other Use TUMS as needed f or any nausea or indigestion. Call me if problems Next Appt Details Follow Up: prn, Reason: Progress Notes * BLAZE MEJIA MDOB:1945 (78 yo M)Acc No.[id number]:02/05/2024 Progress Notes Patient:?BLAZE MEJIA Provider:?Tre Moody MD :1945???Age:78 Y???Sex:Male Melo e:02/05/2024 Address:[address] [place], [place] [id number] Pcp:Irving Valentin MD Subjective: * Chief Complaints: * ???Patient presents today fo r dysphagia * HPI: ???incontinence:? I saw Antonio in followup today in regard to his chronic gastroesophageal reflux. He was accompanied by his daughter, Valentin. ?I last saw Antonio in September of 2023, at which time he underwent an upper endoscopy. This revealed his small hiatal hernia but no evidence of any esophagitis, esophageal stricture, nor any other significant pathology. Esophageal biopsies were negative for eosinophilic esophagitis. I did use a large balloon to dilate the gastroesophageal junction due to his symptoms of some dysphagia but there really was no appreciable narrowing nor effect from the dilation. He did have a followup barium swallow in November due to ongoing symptoms and this also did not reveal any significant pathology other than his hiatal hernia, some esophageal dysmotility, and a small Zenker's diverticulum. There was no sign of any obstruction to a barium tablet. ?Since that time has been using omeprazole 40 mg twice a day and occasional TUMS. Overall, he thinks things are definitely improved from last Fall when he was having trouble with his swallowing. He still has intermittent episodes of some heartburn, nausea, and anorexia, but thinks taking TUMS on a p.r.n. basis helps that. He enjoys a good appetite otherwise. He has at least one smoothie every day. He has not had any significant weight loss. His bowel movements have been regular and without any signs of bleeding. He denies any nausea, vomiting, dysphagia, nor early satiety at the present time. * ROS:?General/Constitutional:?Change in appetite?denies.?Chills?denies.?Fatigue?denies.?Ophthalmologic:?Comments?all negative.?ENT:?Comments?all negative.?Respiratory:?hemoptysis?denies.?Cough?denies.?Cardiovascular:?Chest pain?denies.?Orthopnea?denies.?Gastrointestinal:?Comments?See HPI for details.?Genitourinary:?Hematuria?denies.?Dysuria?denies.?Musculoskeletal:?Painful joints?pain in knees and right hip--arthritis.?Weakness?denies.?Skin:?Itching?admits.?Rash?denies.?Neurologic:?Headache?denies.?Seizures?denies.?Psychiatric:?Comments?all negative.? * Medical History:? * Surgical History:?Right heel surgery. squamous cell carcinoma * Hospitalization/Major Diagno stic Procedure:?No Hospitalization History. * Family History:?Father: dece ased.?Mother: , diagnosed with Colon cancer.?Siblings: , sister, diagnosed with Colon cancer.? The patient's family history is notable for his mother with ? of colon cancer at age 80. Sister had colon cancer in her 70's or 80's. * Social History:?Tobacco Use:?Tobacco Use/Smoking?Patient is a: former smoker , How long has it been since you last smoked?: > 10 years.?Drugs/Alcohol:?Alcohol Screen?Points: 2, Interpretation: Negative.?Miscellaneous:?Occupation: retired. ???Nonsmoker; occasional alcohol. * Medications:?TakingAcetamino phen 500 MG Capsule 1 capsule as needed Orally every 6 hrsAspirin 81 Allopurinol 300 MG Tablet 1/2 tablet Orally Once a dayTamsulosin HCl 0.4 MG Capsule Oral Furosemide 40 MG Tablet Oral Carvedilol 3.125 MG Tablet Oral Omeprazole 40 MG Capsule Delayed Release 1 Orally Every morningOmeprazole 40 MG Capsule Delayed Release 1 Orally Take 1 every morning upon awakening and take 1 every day again at 5 or 6PMTaking Acetaminophen 500 MG Capsule 1 capsule as needed Orally every 6 hrsTaking Aspirin 81 Taking Allopurinol 300 MG Tablet 1/2 tablet Orally Once a dayTaking Tamsulosin HCl 0.4 MG Capsule Oral Taking Furosemide 40 MG Tablet Oral Taking Carvedilol 3.125 MG Tablet Oral Taking Omeprazole 40 MG Capsule Delayed Release 1 Orally Every morningTaking Omeprazole 40 MG Capsule Delayed Release 1 Orally Take 1 every morning upon awakening and take 1 every day again at 5 or 6PMNot-Taking/PRNIbuprofen 200 MG Tablet 1 tablet with food or milk as needed Orally as neededNot-Taking/PRN Ibuprofen 200 MG Tablet 1 tablet with food or milk as needed Orally as neededDiscontinuedZyrTEC 10 MG Tablet Chewable 1 tablet Orally Once a dayAtorvastatin Calcium 40 MG Tablet Oral Medication List reviewed and reconciled with the patientDiscontinued ZyrTEC 10 MG Tablet Chewable 1 tablet Orally Once a dayDiscontinued Atorvastatin Calcium 40 MG Tablet Oral Medication List reviewed and reconciled with the patient * Allergies:?N.K.D.A.yes[Aller gies Verified] Objective: * Vitals:?Wt: 222 lbs, Ht: 70. 25 in, BMI:31.62 Index, BP: 00/00 mm Hg, Temp: 97.5. * Examination: ???General Examination: ?GENERAL APPEARANCE:?pleasant, well nourished, well developed, in no acute distress.?EYES:?sclera non-icteric.?ORAL CAVITY:?mucosa moist.?NECK/THYROID:?no cervical lymphadenopathy, neck supple.?SKIN:?nonjaundiced, no spider angiomata.?HEART:?S1, S2 normal.?LUNGS:?clear to auscultation bilaterally.?ABDOMEN:?normal bowel sounds, no guarding or rigidity, no guarding or rigidity, no masses palpable, soft, nontender, nondistended.?EXTREMITIES:?no edema.?NEUROLOGIC:?alert and oriented.? Assessment: * Assessment: 1.?Gastroesophageal reflux d isease without esophagitis - K21.9 (Primary)?2.?Gastroesophageal reflux disease, unspecified whether esophagitis present - K21.9? Overall, Antonio appears very we ll. He does continue to have some symptoms of reflux and indigestion, but generally things seem to be much better than they were last Fall. He does seem to have improved on the omeprazole. We did review the endoscopy and the barium swallow findings. I am not certain as to whether or not the esophageal balloon dilation gave him any symptomatic improvement but nonetheless he does feel better since that time and with the use of omeprazole. At this point I advised him and Valentin that I think he has some component of gastroesophageal reflux and some nonspecific esophageal dysmotility. I don't think the small Zenker's diverticulum seen on the recent Barium swallow is of any clinical significance based on his clinical history and the description on the Barium swallow. However, it does seem that his symptoms are much better with the acid suppression. As such, I did advise him to continue the omeprazole once or twice a day. I also advised him to use TUMS as needed since that does seem to give him some symptomatic relief as well. I don't think any further diagnostic tests are required given his excellent clinical appearance and his current stable clinical history. If things remain well I advised him to see me on a p.r.n. basis. I advised him to certainly call if he has any problems or questions I can be of assistance with. Antonio and his daughter were comfortable with this plan. Thank you again for allowing me to have participated in Antonio's care. I shall continue to keep you advised of his progress as needed. Please do not hesitate to contact me if I cn be of any further ssistance in the future. Plan: * Treatment: 2.?Others? Notes: Use TUMS as needed for any nausea or indigestion. Call me if problems?? * Procedure Codes:?1036F TOBAC CO [id number] BP SCR NOT PRFRM REC REASON NOS * Preventive Medicine:? ??Counseling:?Care goal follow-up plan:?Above Normal BMI Follow-up?Giving encouragement to exercise,?BMI management provided?Yes.? * Follow Up:?prn * * Sign off status: Completed true * Provider:?Tre Moody MD Date:? 024 Generated for Dinorah saldaña/Lester/eTransmitting on:?03/23/2025 03:39 PM EDT History and Physical Notes * HPI (History of Present Illness) Category Sub-Category Detail Notes Category Not es incontinence I saw Antonio in followup today in regard to his chronic gastroesophageal reflux. He was accompanied by his daughter, Valentin. I last saw Antonio in September of 2023, at which time he underwent an upper endoscopy. This revealed his small hiatal hernia but no evidence of any esophagitis, esophageal stricture, nor any other significant pathology. Esophageal biopsies were negative for eosinophilic esophagitis. I did use a large balloon to dilate the gastroesophageal junction due to his symptoms of some dysphagia but there really was no appreciable narrowing nor effect from the dilation. He did have a followup barium swallow in November due to ongoing symptoms and this also did not reveal any significant pathology other than his hiatal hernia, some esophageal dysmotility, and a small Zenker's diverticulum. There was no sign of any obstruction to a barium tablet. Since that time has been using omeprazole 40 mg twice a day and occasional TUMS. Overall, he thinks things are definitely improved from last Fall when he was having trouble with his swallowing. He still has intermittent episodes of some heartburn, nausea, and anorexia, but thinks taking TUMS on a p.r.n. basis helps that. He enjoys a good appetite otherwise. He has at least one smoothie every day. He has not had any significant weight loss. His bowel movements have been regular and without any signs of bleeding. He denies any nausea, vomiting, dysphagia, nor early satiety at the present time. Examination Category Sub-Category Detail Notes Category Not es General Examination GENERAL APPEARANCE: pleasant , well [...]
--- OUTSIDE RECORDS SUMMARY | 2025-03-23 15:39 | XMS_ITS | Clinical Summary ---
Author Organization [facility] Address [address] [place] [address] Phone Care Team Providers Care Carnallite Plant Operator Name Role Phone Irving Valentin MD Primary Care Provider [phone] Allergies No known active allergies Medications allopurinol [...] 01/23/2023 01/23/2023 Tinea unguium 01/23/2023 01/23/2023 Immunizations Immunization Administration Dates Next Due Pfizer SARS-COV-2 09/22/2021,01/20/2021,12/30/19 [...] Due Date Last Done Comments Pneumococcal Vaccine: 50+ Ye ars (1 of 2 - PCV) 1962 Influenza Vaccine (Season Ended) 2025 Hepatitis B Vaccine Aged Out No longe r eligible based on patient's age to complete this topic Insurance Medicare [facility] Medicare [facility] Care Teams Carnallite Plant Operator Relationship Specialty Start Date End Date Irving Valentin MD [facility] [address] [place], [place] PCP - General Internal Medicine 12/19/22
--- OUTSIDE RECORDS SUMMARY | 2025-03-23 15:39 | XMS_ITS | Encounter Summary ---
Author Organization [facility] Address [address] [place] [address] Care Team Providers Care Gunsmith Apprentice Name Role Phone Irving Valentin Primary Care Provider [phone] Encounter Details Date Type Department Care Team (Late st Contact Info) Description 02/11/2025 Results Follow-Up [facility] [address]th [address] [place] [phone] Store Associate: Bg Noland MD [address] [place] [phone] Social History Tobacco Use Types Packs/Day Years [...] Care Team (Late st Contact Info) Description 05/12/2025 10:00 AM EDT Office Visit [facility] 4th [address] [place] [phone] Store Associate: Bg Noland MD [address] [place] [address] 06/29/2025 9:30 AM EDT Office Visit [facility] 4th Floor [address], [place] [phone] Store Associate: Bg Noland MD [address] [place] [address] documented as of this encounter Visit Diagnoses Not on filedocumented in this encounter Care Teams Gunsmith Apprentice Relationship Specialty Start Date End Date Irving Valentin [address] [place] [address] [place] [address] PCP - General Internal Medicine 09/03/23 documented as of this encounter
--- OUTSIDE RECORDS SUMMARY | 2025-03-23 15:39 | XMS_ITS ---
Author Organization [facility] Address [address] [place] [address] Care Team Providers Care Acquisition Manager Name Role Phone Irving Valentin MD Primary Care Provider UnavailSurinder Almonte [phone] REASON FOR VISIT RS 12/19/24 APPT Encounters Encounter Location Date Provider Diagnosis [address] [phone] 12/15/2024 Surinder Brar Plan Of Treatment Next Appt Details Provider Name:Surinder Brar , 05/08/2025 12:15:00 PM, [address] [place] [address], [phone], Progress Notes * Bryce MEJIADOB:1945 ([age] yo M)Acc No.[id number]:12/15/2024 Patient:?Bryce MEJIA :1945???Age:79 Y???Sex:Male Address:[address] [place] [address] * true * Date:? Generated for Printi ng/Faxing/eTransmitting on:?03/23/2025 03:38 PM EDT
--- OUTSIDE RECORDS SUMMARY | 2025-03-23 15:39 | XMS_ITS | Encounter Summary ---
Author Organization [facility] Address [address] [place] [address] Care Team Providers Care Police Stenographer Name Role Phone Irving Valentin Primary Care Provider [phone] Reason for Visit * Reason Comments Med Refill Encounter Details Date Type Department Care Team (Late st Contact Info) Description 03/23/2025 Refill [facility] [address] [phone] Air Hoist Operator: gB Noland MD [address] [place] [address] Dermal hypersensitivity reaction Social History Tobacco Use Types Packs/Day Years [...] Description 05/12/2025 10:00 AM EDT Office Visit [facility] 4th [address] [place] [phone] Air Hoist Operator: Bg Noland MD [address] [place] [address] 06/29/2025 9:30 AM EDT Office Visit [facility] 4th Floor [address] [facility] [place] [address] Air Hoist Operator: Bg Noland MD [address] [place] [address] documented as of this encounter Visit Diagnoses Diagnosis Dermal hypersensitivity reaction documented in this encounter Care Teams Police Stenographer Relationship Specialty Start Date End Date Irving Valentin [address] [place] [address] [place] [address] PCP - General Internal Medicine 09/03/23 documented as of this encounter
--- OUTSIDE RECORDS SUMMARY | 2025-03-23 15:39 | XMS_ITS | Patient Health Record ---
Author Organization [facility] Address [address] [place] [address] Care Team Providers Care Pipe Fitter Supervisor Name Role Phone Irving Valentin MD Primary Care Provider Tre uGidry Unavailable [phone] Allergies No Known Allergies Reason For Referral [...] as needed Orally as needed Not-T aking Immunizations Vaccine Route Administration Date Status Comme nts Flu vaccine no Preserv 3 and > Unknown 10/13/2015 Admin istered Influenza Unknown 09/04/2022 Administered Problems Problem Type SNOMED Code ICD Code Onset Dates Problem Status W/U Status Risk Notes Problem 342175901 Encounter for screening for malignant neoplasm of colon (Z12.11) Active confirmed Problem 977417915 History of adenomatous polyp of colon (Z86.010) Active confirmed Problem 45675961 Change in bowel habits (R19.4) Active confirmed Problem Screening for malignant neoplasm of rectum (679384145) Encounter for screening for malignant neoplasm of rectum (Z12.12) Active confirmed Problem Dysphagia (54300912) Dysphagia (R13.10) Active confirmed Problem 302184365 Gastroesophageal reflux disease without esophagitis (K21.9) Active confirmed Problem 27879013 Peptic ulcer disease (K27.9) Active confirmed Problem 176534795 NSAID long-term use (Z79.1) Active confirmed Problem Diverticulosis of colon (358832757) Diverticulosis of colon (K57.30) Active confirmed Problem 540168560 Gastroesophageal reflux disease, unspecified whether esophagitis present (K21.9) Active confirmed Problem 36000069 Esophageal dysphagia (R13.19) Active confirmed Plan Of Treatment Pending Test Test Name Order Date CELIAC PANEL #10 01/23/2023 XR BARIUM SWALLOW-ESOPHAGUS 11/28/2023 Future Test Test Name Order Date COLONOSCOPY 09/05/2016 COLONOSCOPY 01/23/2023 UPPER GI ENDOSCOPY BALLOOON DILATION OF ESOPH 09/27/2023 Insurance Providers Payer Name Payer Address Payer Phone Subscriber Number Group Number Insured Name Patient Relationship to Insured Coverage Start Date Coverage End Date MEDICARE OF [place] [address] [place] [address] [id number] BLAZE MEJIA Self - patient is the insured [employer] ATT[employer] CLAIMS [address] [place] [phone] [id number] BLAZE MEJIA Self - patient is the insured Medical (General) History Medical History History ICD Code Small tubular adenomas remov ed in 2002 and in July 2011; he had a negative colonoscopy in 2005 with me and a negative colon[place] [address] Mast; he does have diverticulosis and internal hemorrhoids Gastric ulcer in 1993--EGD--biopsies wer e neg. for H.pylori Denies AL,DM,CVA,Lung disease,renal dise ase HTN Gout Reported bleeding duodenal ulcer in the 1970s Negative screening colonoscopy in 2016 Pruritic skin rash followed by Dr. Thomason from dermatology as of the 01/2023 OV Renal insufficiency--seeing Dr. Barnard-- 01/24/2023 Sleep apnea-using CPAP Neg.Nuclear med ETT with Dr. Atkins at [facility] summer 2022 Neg. colonoscopy 03/2023 Upper endoscopy [...]
--- OUTSIDE RECORDS SUMMARY | 2025-03-23 15:39 | XMS_ITS | Clinical Summary ---
Author Organization [facility] Address [address] [place] [address] Care Team Providers Care Medical Lab Tech Instructor Name Role Phone Irving Valentin Primary Care Provider [phone] Allergies Active Allergy Reactions Criticality Noted Date [...] 1 Orally Every morning for 30 day(s) 023 Active cetirizine (ZyrTEC) 10 mg capsule capsuleIndications: Dermatitis Take one tablet twice daily 60 capsule 2 023 Active triamcinolone acetonide (KENALOG) 0.1% ointmentIndications :Dermatitis Apply to rash twice daily as needed 454 g 3 023 Active Additional Information Patient not taking.Reported on 02/10/2025 triamcinolone acetonide (KENALOG) 0.1% creamIndications:De rmatitis Apply to rash twice daily until flat and smooth. Do not use on face, in genital area or in skin folds. 454 g 023 Active Additional Information Patient not taking.Reported on 02/10/2025 fluorouraciL (EFUDEX) 5% cream Apply a tiny dab to affected area twice daily for 2 weeks. Redness and irritation is expected. 40 g 025 Active Additional Information Patient not taking.Reported on 02/10/2025 fexofenadine (SIMONE) 180 mg tablet Take 180 mg by mouth once a day. Active methotrexate (TREXALL) 2.5 mg tabletIndications:D ermal hypersensitivity reaction Take 10 tablets (25 mg total) by mouth once a week. All on the same day each week....IC TEXALL 40 tablet 025 Active folic acid (FOLVITE) 1 mg tabletIndications:D ermal hypersensitivity reaction Take ONE tablet daily on days when you DO NOT take methotrexate FOR 6 DAYS A WEEK 24 tablet 025 Active folic acid (FOLVITE) 1 mg tabletIndications:D ermal hypersensitivity reaction Take ONE tablet daily on days when you DO NOT take methotrexate (i.e. 6 days per week) 24 tablet 5 024 2024 Discontinued methotrexate (TREXALL) 2.5 mg tabletIndications:D ermal hypersensitivity reaction Take 8 tablets (20 mg total) by mouth once a week. All on the same day each week. 024 2024 Discontinued Active Problems Problem Noted Date Diagnosed Date Change in bowel habits 11/23/2023 Diverticulosis of colon 11/23/2023 Dysphagia 11/23/2023 Esophageal dysphagia 11/23/2023 Gastroesophageal reflux disease 11/23/2023 Ingrowing nail 11/23/2023 Peptic ulcer disease 11/23/2023 Tinea unguium 11/23/2023 Hypertension 01/24/2023 Stage 3a chronic kidney disease 01/24/2023 Encounters Date Type Department Care Team Description 03/23/2025 Refill [facility] [address] [place] [phone] Licensed Surveyor: Bg Noland MD Dermal hypersensitivity reaction 02/11/2025 Results Follow-Up [facility] [address] [place] [phone] Licensed Surveyor: Bg Noland MD 02/10/2025 11:15 AM EDT Follow-Up [facility] [address] [place] [phone] Licensed Surveyor: Bg Noland MD Dermal hypersensitivity reaction (Primary Dx); High risk medication use; Actinic keratosis 12/30/2024 Telephone [facility] 4th Floor [address] [place] [phone] Licensed Surveyor: Bg Noland MD 12/26/2024 myChart Message [facility] 4th Floor [address] Fourth [place] [phone] Licensed Surveyor: Bg Noland MD My father's follow up appointment with you from Last 3 Months Immunizations Immunization Administration Dates Next Due Covid-19, Pfizer, mRNA, [place] valent, PF 30 mcg/0.3 mL dose (for [...] Description 05/12/2025 10:00 AM EDT Office Visit [facility] [address] [phone] Licensed Surveyor: Bg Noland MD [address] [place] [phone] 06/29/2025 9:30 AM EDT Office Visit [facility] [address] [phone] Licensed Surveyor: Bg Noland MD [address] [place] [phone] Health Maintenance Due Date Last Done Comments Medicare AWV 1946 Zoster Vaccines (1 of 2) 1993 Pneumococcal Vaccine: 50+ Years (2 of 2 - PCV) 01/05/2010 01/05/2009 RSV Vaccine (60+ years old and patients) (1 - 1-dose 75+ series) 2018 COVID-19 Vaccine ( season) 2024 09/12/2021, 01/20/2021, 12/30/2020 Alcohol/Substance Use Screening 11/19/2024 Depression Screening and Follow-Up 11/19/2024 Health Care Proxy Review 11/19/2024 Social Drivers of Health Annual Screening 11/19/2024 Basic Metabolic Panel 02/10/2026 02/10/2025 , 10/14/2024, 02/18/2016, Additional history exists Fall Risk Screening 02/10/2026 02/10/2025 DTaP,Tdap,and Td Vaccines (2 - Td or Tdap) 05/26/2031 05/26/2021, 05/03/2018 Tobacco Screening 11/19/2042 02/10/2025 Influenza Vaccine Completed 08/30/2024, , 09/04/2022, Additional history exists Hepatitis B Vaccines Aged Out No long er eligible based on patient's age to complete this topic Procedures * Due to [place] TapMyBack law, this organization might not be sharing negative HIV tests. Procedure Name Priority Date/Time Associated Diagnosis Comments CBC AUTO DIFFERENTIAL Routine 02/10/2025 12:24 PM EDT High risk medication use COMPREHENSIVE METABOLIC PANEL Routine 02/10/2025 12:24 PM EDT High risk medication use from Last 3 Months Results * Due to [place] TapMyBack law, this organization might not be sharing negative HIV tests. * (ABNORMAL) CBC Auto Differential (02/10/2025 12:24 PM EDT) WBC 6.3 3.8 - 10.8 10*3/uL 02/10/2025 2:49 PM EDT [facility] RBC 4.46 4.20 - 5.80 10*6/uL 02/10/2025 2:49 PM EDT [facility] Hemoglobin 14.0 13.2 - 17.1 g/dL 02/10/2025 2:49 PM EDT [facility] Hematocrit 42.1 38.5 - 50.0 % 02/10/2025 2:49 PM EDT [facility] MCV 94.4 80.0 - 100.0 fL 02/10/2025 2:49 PM EDT [facility] MCH 31.4 27.0 - 33.0 pg 02/10/2025 2:49 PM EDT [facility] MCHC 33.3 32.0 - 36.0 g/dL 02/10/2025 2:49 PM EDT [facility] RDW 14.5 11.0 - 15.0 % 02/10/2025 2:49 PM EDT [facility] Platelets 214 140 - 400 10*3/uL 02/10/2025 2:49 PM EDT [facility] MPV 10.1 7.5 - 12.5 fL 02/10/2025 2:49 PM EDT [facility] Neutrophil % 43.5 % 02/10/2025 2:49 PM EDT [facility] Immature Grans % 0.5 0.0 - 0.9 % 02/10/2025 2:49 PM EDT [facility] Lymphocyte % 31.1 % 02/10/2025 2:49 PM EDT [facility] Monocyte % 17.8 % 02/10/2025 2:49 PM EDT [facility] Eosinophil % 6.0 % 02/10/2025 2:49 PM EDT [facility] Basophil % 1.1 % 02/10/2025 2:49 PM EDT [facility] Neutrophil # 2.74 1.50 - 7.80 10*3/uL 02/10/2025 2:49 PM EDT [facility] Immature Grans # 0.03 <=0.03 10*3/uL 02/10/2025 2:49 PM EDT [facility] Lymphocyte # 2.00 0.85 - 3.90 10*3/uL 02/10/2025 2:49 PM EDT [facility] Monocyte # 1.10(H) 0.20 - 0.95 10*3/uL 02/10/2025 2:49 PM EDT [facility] Eosinophil # 0.40 0.02 - 0.50 10*3/uL 02/10/2025 2:49 PM EDT [facility] Basophil # 0.10 0.00 - 0.20 10*3/uL 02/10/2025 2:49 PM EDT [facility] nRBC % 0.0 /100 WBCs 02/10/2025 2:49 PM EDT [facility] [employer] [facility] nRBC # <0.01 <0.01 10*3/uL 02/10/2025 2:49 PM EDT [facility] Blood Structure of peripheral vein / Unknown Venipuncture / Unknown 02/10/2025 12:24 PM EDT 02/10/2025 12:24 PM EDT us Bg Clinton MD LAB BLOOD ORDERABLES Final Res ult [facility] [address] [place] [address], * (ABNORMAL) Comprehensive Metabolic Panel (02/10/2025 12:24 PM EDT) NA 142 135 - 145 mmol/L 02/10/2025 2:46 PM EDT [facility] K 4.4 3.5 - 5.3 mmol/L 02/10/2025 2:46 PM EDT [facility] Cl 104 98 - 107 mmol/L 02/10/2025 2:46 PM EDT [facility] CO2 27 22 - 32 mmol/L 02/10/2025 2:46 PM EDT [facility] Anion Gap 11 5 - 15 [place] MANUAL 02/10/2025 2:46 PM EDT [facility] Glucose 86 65 - 99 mg/dL 02/10/2025 2:46 PM EDT [facility] Creatinine 1.15 0.60 - 1.30 mg/dL 02/10/2025 2:46 PM EDT [facility] Calcium 10.0 8.6 - 10.5 mg/dL 02/10/2025 2:46 PM EDT [facility] Total Protein 7.0 6.0 - 8.0 g/dL 02/10/2025 2:46 PM EDT [facility] Albumin 4.3 3.5 - 5.2 g/dL 02/10/2025 2:46 PM EDT [facility] Bilirubin, Total 0.7 0.2 - 1.2 mg/dL 02/10/2025 2:46 PM EDT [facility] Alkaline Phosphatase 85 35 - 129 U/L 02/10/2025 2:46 PM EDT [facility] AST 25 10 - 40 U/L 02/10/2025 2:46 PM EDT [facility] ALT 22 10 - 40 U/L 02/10/2025 2:46 PM EDT [facility] BUN 28(H) 7 - 23 mg/dL 02/10/2025 2:46 PM EDT [facility] eGFR 64 >=60 mL/min/1. 73m2 [facility] MANUAL 02/10/2025 2:46 PM EDT [facility] Comment:The estimated glomer ular [...] in Diagnosing Kidney Disease . Globulin, Total 2.7 2.1 - 4.2 g/dL [facility] MANUAL 02/10/2025 2:46 PM EDT [facility] A/G Ratio 1.6 1.5 - 3.0 [facility] MANUAL 02/10/2025 2:46 PM EDT [facility] Blood Structure of peripheral vein / Unknown Venipuncture / Unknown 02/10/2025 12:24 PM EDT 02/10/2025 12:24 PM EDT us Bg Clinton MD LAB BLOOD ORDERABLES Final Res ult [facility] [address] [place] [address], [place] from Last 3 Months Insurance MEDICARE [facility] Care Teams Medical Lab Tech Instructor Relationship Specialty Start Date End Date Irving Valentin [address] [place] [address] Dr Frankie [place] [phone] PCP - General Internal Medicine 09/03/23
--- OUTSIDE RECORDS SUMMARY | 2025-03-23 15:39 | XMS_ITS ---
Author Organization [facility] Address [address] [place] [address] Care Team Providers Care Funeral Home Attendant Name Role Phone Irving Valentin MD Primary Care Provider Surinder Arriola Unavailable [phone] Allergies No Known Allergies REASON FOR VISIT At Risk Footcare, Painful Nail(s) aggravated by shoes and causing difficulty standing/walking., Ingrown Nail Medications Medication SIG (Take, Route, Frequency, Duration) Notes Start Date End Date Status Folic Acid Active Ciclopirox Olamine 0.77 % 1 application to affected area Externally Twice a day for 30 days Not-Taking Lisinopril-hydroCHLOROthi azide Not-Taking Flomax Not-Taking Rosuvastatin Calcium Not-Taking Tamsulosin HCl 0.4 MG 1 capsule Orally O nce a day Not-Taking Allopurinol 150mg Orally No t-Taking Lisinopril 20 MG Orally Not -Taking Atorvastatin Calcium 40 MG Orally Not-Taking Methotrexate Sodium 2.5 MG Oral for 28 Days Active Omeprazole Active Furosemide Active Carvedilol Active aspirin baby Active Social History Tobacco Use: Social History Observation Description Date Details (start date - stop date) Never Smoker NA - NA Tobacco use other than smoking: Question Answer Notes Are you an other tobacco user? No Tobacco Control (Standard) Question Answer Notes Tobacco use: Nonsmoker Vital Signs Height 5 ft 11 in in 02/06/2025 Weight 205 lbs 02/06/2025 BMI 28.59 kg/m2 02/06/2025 Blood pressure systolic 120 mm Hg 02/07/20 25 Blood pressure diastolic 80 mm Hg 025 Procedures Procedure Date Ordered Date Performed Result Body Sit e 23902-RECVSTI NAIL, 6 OR MORE 02/06/2025 N/A 44562-Hkvpbkun Plate 02/06/2025 N/A 96813-ZBVL SKIN LESIONS, 2 TO 4 02/06/2025 N/A Encounters Encounter Location Date Provider Diagnosis [facility] [address] [address] 02/06/2025 Surinder Brar Atherosclerosis of [place] artery of both lower extremities, with unspecified presence of clinical manifestation I70.203 ; Tinea unguium B35.1 ; Pain in right toe(s) M79.674 ; Pain in left toe(s) M79.675 and Ingrown nail L60.0 Assessments Encounter Date Diagnosis (ICD Code) Assessment Notes Treatment Notes Treatment Clinical Notes Section Notes 02/06/2025 Atherosclerosis of [place] artery of both lower extremities, with unspecified presence of clinical manifestation (ICD-10 - I70.203) Q7(A), Q8(2B), Q9(1B,2C) 02/06/2025 Tinea unguium (ICD-10 - B35.1) 02/06/2025 Pain in right toe(s) (ICD-10 - M79.674) 02/06/2025 Pain in left toe(s) (ICD-10 - M79.675) 02/06/2025 Ingrown nail (ICD-10 - L60.0) Plan Of Treatment Pending Test Test Name Order Date 34314-OMEUTIH NAIL, 6 OR MORE 02/06/2025 86502-Utbssqkk Plate 02/06/2025 20802-CXGZ SKIN LESIONS, 2 TO 4 02/07/20 25 Next Appt Details Follow Up: prn, Reason: Provider Name:Surinder Brar , 05/08/2025 12:15:00 PM, [address] [place] [address], [phone], Procedure Notes * Category Sub-Category Detail Notes [...] Motrin was recommended for pain or discomfort - 46439, CIRCULATION: Pt was advised as to the risk of delayed or nonhealing due to circulation. Pt is to call the office with any questions, concerns, or complications Anesthesia was deferred - PT AB SOLUTELY REFUSES - tolerant to pain without issue/complication Location Medial nail border, T5 Debride Nail 6-10 Nail debridement Due to the cl inical pathology outlined in the exam findings, performance of this nail treatment is medically necessary as its management by an unskilled/untrained nonprofessional would put this patients foot and overall health at risk. Therefore, debridement to affected nail(s), as described in exam ( TA, T1, T2, T4, T5, T6, T7, T9 ), was performed exclusively by the physician of record to reduce/remove overall nail length, girth, thickness, subungual debris, and necrotic tissue, by manual and/or electrical means through the use of a nail nipper and/or dremel-type shot grinder operator, to a more viable healthy nail plate or bed tissue 6-10 nails in total. Silver nitrate was used for any petechial bleeding as necessary. Definitive antifungal treatment options, both pharmaceutical and surgical, have been reviewed and discussed with the patient. The patient solely prefers the use of intermittent/as needed professional debridement services for their nail condition and understands the need for additional periodic treatments to maintain effectiveness in symptomatic relief - 22213 Keratoma Treatment Parring or Cutting o f Benign Hyperkeratotic Lesion(s) (-56) 2-4 Lesions - Due to the at risk nature of the patients medical condition as documented in the exam findings, performance of this keratoderma treatment is medically necessary as its management by an unskilled/untrained nonprofessional would put this patients foot and overall health at risk. Therefore, the benign hyperkeratotic lesions, ( 2 ) in total, locations as stated and described in the exam ( SUB MTH (s) , 1 , B/L ), were pared, and/or cut utilizing a sterile 15 blade, tissue nippers, and/or power dremel instrumentation by the physician of record - 06377, Q8 Progress Notes * Bryce MEJIADOB:1945 ([age] yo M)Acc No.[id number]:02/06/2025 Progress Note Patient:?Bryce MEJIA Provider:?Surinder Brar DPM :1945???Age:79 Y???Sex:Male Melo e:02/06/2025 Address: [address], [facility] Pcp:Irving Valentin MD Subjective: * Chief Complaints: * ???At Risk FootcarePainful N ail(s) aggravated by shoes and causing difficulty standing/walking.Ingrown Nail * HPI: ???At Risk footcare:?Pt States Last PCP Visit:?Date?11/18/2024 * ROS:?General/Constitutional:?Nausea?denies.?Vomiting?denies.?Hunger Thirst?denies.?Loss appetite?denies.?Chills?denies.?Fatigue?denies.?Fever?denies.?Night Sweats?denies.?Unexplained weight loss?denies.?Unexplained [...] Gall bladder 08/28/2024 * Hospitalization/Major Diagno stic Procedure:?C-Blood infection/ gall bladder removed 08/28/2024-[facility]- eye condition 12/13 * Family History:?Mother: dece ased.?Father: .?Siblings: diagnosed with Diabetic - NIDDM.? * Social History:?Tobacco Use:?Tobacco use other than smoking?Are you an other tobacco user??No ?Tobacco Control (Standard)?Tobacco use:?Nonsmoker ???Miscellaneous:?Caffeine: yes, frequency: Coffee, 1-2 cups per day. ?Children: yes. ?Exercise: yes, walking, occasional, housework, yard work,shopping. ?Marital status: . 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 * Medications:?TakingFolic Aci d Omeprazole aspirin baby Carvedilol Furosemide Methotrexate Sodium 2.5 MG Tablet Oral Taking Folic Acid Taking Omeprazole Taking aspirin baby Taking Carvedilol Taking Furosemide Taking Methotrexate Sodium 2.5 MG Tablet Oral Not-Taking/PRNAtorvastatin Calcium 40 MG Tablet Orally Allopurinol 150mg Tablet Orally Tamsulosin HCl 0.4 MG Capsule 1 capsule Orally Once a day Lisinopril 20 MG Tablet Orally Lisinopril-hydroCHLOROthiazide Ciclopirox Olamine 0.77 % Cream 1 application to affected area Externally Twice a day Rosuvastatin Calcium Flomax Medication List reviewed and reconciled with the patientNot-Taking/PRN Atorvastatin Calcium 40 MG Tablet Orally Not-Taking/PRN Allopurinol 150mg Tablet Orally Not-Taking/PRN Tamsulosin HCl 0.4 MG Capsule 1 capsule Orally Once a day Not-Taking/PRN Lisinopril 20 MG Tablet Orally Not-Taking/PRN Lisinopril-hydroCHLOROthiazide Not-Taking/PRN Ciclopirox Olamine 0.77 % Cream 1 application to affected area Externally Twice a day Not-Taking/PRN Rosuvastatin Calcium Not-Taking/PRN Flomax Medication List reviewed and reconciled with the patient * Allergies:?N.K.D.A.yes[Aller gies Verified] Objective: * Vitals:?Ht: 5 ft 11 in, Wt: 205, BMI: 28.59, Shoe size: 13, BP: 120/80 mm Hg, Wt-k.99 kg. * Examination: ???Vascular: ?DP PULSES (B):? 0/4, B/L.?PT PULSES (B):? 0/4, B/L.?CAPILLARY FILL TIME:? delayed, all digits, B/L.?TROPHIC CONDITION-TEXTURE/ELASTICITY/TURGOR/HAIR GROWTH (B):? decreased, with sparse to absent hair growth, B/L.?TEMPERTURE GRADIENT (C):? decreased, cool to cool, proximal to distal, B/L.?PIGMENTATION:?mottled, B/L.?EDEMA (C):?3/4 , non-pitting , without aching pain , Leg(s) , Ankle(s) , Foot , B/L.?CLAUDICATION (C):?denies, B/L.?REST PAIN:?denies, B/L.?Nails: ?NAILS are:?Elongated, overgrown, dystrophic, lytic, greater than 3mm thick, discolored and friable with crumbly malodorous subungual debris, with pain on palpation, TA, T1, T2, T4, T5, T6, T7, T9, all other nails not described with characteristics as possessing mycosis are elongated, overgrown, and dystrophic.?Dermatologic: ?SKIN FINDINGS:?Skin exam reveals Keratotic lesion(s) located at , SUB MTH (s) , 1 , B/L.?Ingrown Nail: ?INSPECTION:?Reveals nail incurvation, pain on palpation, groove hypertrophy, Medial nail border, T5.? Assessment: * Assessment: 1.?Tinea unguium - B35.1???2 .?Atherosclerosis of [place] artery of both lower extremities, with unspecified presence of clinical manifestation - I70.203 (Primary)???Specify :Q8???Notes :Q7(A), Q8(2B), Q9(1B,2C)???3.?Pain in right toe(s) - M79.674???4.?Pain in left toe(s) - M79.675???5.?Ingrown nail - L60.0???Specify :Medial nail border,?T5??? Plan: * Treatment: 2.?Tinea unguium?Procedure: 63552-UQTTLRL NAIL, 6 OR MORE 3.?Ingrown nail?Procedure: 84069-Fzylunqf Plate * Procedures:?Debride Nail 6-10:?Nail debridement?Due to the clinical pathology outlined in the exam findings, performance of this nail treatment is medically necessary as its management by an unskilled/untrained nonprofessional would put this patients foot and overall health at risk. Therefore, debridement to affected nail(s), as described in exam (?TA,?T1,?T2,?T4,?T5,?T6,?T7,?T9?), was performed exclusively by the physician of record to reduce/remove overall nail length, girth, thickness, subungual debris, and necrotic tissue, by manual and/or electrical means through the use of a nail nipper and/or dremel-type shot grinder operator, to a more viable healthy nail plate or bed tissue 6- 10 nails in total. Silver nitrate was used for any petechial bleeding as necessary. Definitive antifungal treatment options, both pharmaceutical and surgical, have been reviewed and discussed with the patient. The patient solely prefers the use of intermittent/as needed professional debridement services for their nail condition and understands the need for additional periodic treatments to maintain effectiveness in symptomatic relief - 07561.?Keratoma Treatment:?Parring or Cutting of Benign Hyperkeratotic Lesion(s)?(-56) 2-4 Lesions - Due to the at risk nature of the patients medical condition as documented in the exam findings, performance of this keratoderma treatment is medically necessary as its management by an unskilled/untrained nonprofessional would put this patients foot and overall health at risk. Therefore, the benign hyperkeratotic lesions, ( 2 ) in total, locations as stated and described in the exam (?SUB MTH (s)?,?1?,?B/L?), were pared, and/or cut utilizing a sterile 15 blade, tissue nippers, and/or power dremel instrumentation by the physician of record - 68156, Q8.?Nail Avulsion:?Location?Medial nail border,?T5.?Anesthesia?was deferred - PT ABSOLUTELY REFUSES - tolerant to pain without issue/complication.?Procedure?A fine sterile elevator was placed between the [...] Motrin was recommended for pain or discomfort - 96586, CIRCULATION: Pt was advised as to the risk of delayed or nonhealing due to circulation. Pt is to call the office with any questions, concerns, or complications.? * Procedure Codes:?30784 DEBRI DE NAIL, 6 OR MORE, Modifiers: XS 16972 Avulsion Plate, Modifiers: XS , [id number] TRIM SKIN LESIONS, 2 TO 4, Modifiers: XS , Q8 * Follow Up:?prn * Images: * Sign off status: Completed true * Provider:?Surinder Brar DPM Date:?2024 Generated for Dinorah saldaña/Lester/Julia on:?03/23/2025 03:39 PM EDT History and Physical Notes * HPI (History of Present Illness) Category Sub-Category Detail Notes Category Not es At Risk footcare Pt States Last PCP Visit: Date: 4 Examination Category Sub-Category Detail Notes Category Not es Ingrown Nail INSPECTION: Reveals nail inc urvation, pain on palpation, groove hypertrophy, Medial nail border, T5 Dermatologic SKIN FINDINGS: Skin exam reveal s [...] TA, T1, T2, T4, T5, T6, T7, T9, all other nails not described with characteristics as possessing mycosis are elongated, overgrown, and dystrophic
--- OUTSIDE RECORDS SUMMARY | 2025-03-23 15:39 | XMS_ITS ---
Author Organization [facility] Address [address] [place] [address] Care Team Providers Care Dental Intern Name Role Phone Irving Valentin MD Primary Care Provider Unavaila Surinder Sierra Unavailable [phone] Encounters Encounter Location Date Provider Diagnosis [address] [address] 12/19/2024 Surinder Brar Plan Of Treatment Next Appt Details Provider Name:Surinder Brar , 05/08/2025 12:15:00 PM, [address] [place] [address], [phone], Progress Notes * Bryce MEJIADOB:1945 ([age] yo M)Acc No.[id number]:12/19/2024 Progress Note Patient:?Bryce MEJIA Provider:?Surinder Brar DPM :1945???Age:79 Y???Sex:Male Melo e:12/19/2024 Address:[address], [place] Pcp:Irving Valentin MD Subjective: * Chief Complaints: [...]
--- OUTSIDE RECORDS SUMMARY | 2025-03-23 15:39 | XMS_ITS | Referral Summary ---
Author Organization [facility] Address [address] [place] [address] Care Team Providers Care Operating Engineer Apprentice Name Role Phone Irving Valentin Primary Care Provider [phone] Encounters Date Type Department Care Team Description 03/23/2025 Refill [facility] [address] [place] [phone] Financial Advisor: Bg Noland MD Dermal hypersensitivity reaction 02/11/2025 Results Follow-Up [facility] [address] [phone] Financial Advisor: Bg Noland MD 02/10/2025 11:15 AM EDT Follow-Up [facility] [address] [place] [phone] Financial Advisor: Bg Noland MD Dermal hypersensitivity reaction (Primary Dx); High risk medication use; Actinic keratosis 12/30/2024 Telephone [facility] [address] [place] [phone] Financial Advisor: Bg Noland MD 12/26/2024 myChart Message [facility] [address] [place] [phone] Financial Advisor: Bg Noland MD My father's follow up appointment with you from Last 3 Months Allergies Active Allergy [...] Administration Dates Next Due Covid-19, Pfizer, mRNA, Bond valent, PF 30 mcg/0.3 mL dose (for [...] Description 05/12/2025 10:00 AM EDT Office Visit [facility] [address] [place] [phone] Financial Advisor: Bg Noland MD [address] [place] [phone] 06/29/2025 9:30 AM EDT Office Visit [facility] [address] [place] [phone] Financial Advisor: Bg Noland MD [address] [place] [phone] Procedures * Due to [place] [employer] law, this organization might not be sharing negative HIV tests. Procedure Name Priority Date/Time Associated Diagnosis Comments CBC AUTO DIFFERENTIAL Routine 02/10/2025 12:24 PM EDT High risk medication use COMPREHENSIVE METABOLIC PANEL Routine 02/10/2025 12:24 PM EDT High risk medication use from Last 3 Months Results * Due to [place] [employer] law, this organization might not be sharing negative HIV tests. * (ABNORMAL) CBC Auto Differential (02/10/2025 12:24 PM EDT) WBC 6.3 3.8 - 10.8 10*3/uL 02/10/2025 2:49 PM EDT [facility] RBC 4.46 4.20 - 5.80 10*6/uL 02/10/2025 2:49 PM EDT [facility] Hemoglobin 14.0 13.2 - 17.1 g/dL 02/10/2025 2:49 PM EDT [facility] Hematocrit 42.1 38.5 - 50.0 % 02/10/2025 2:49 PM EDT [facility] MCV 94.4 80.0 - 100.0 fL 02/10/2025 2:49 PM EDT [facility] MCH 31.4 27.0 - 33.0 pg 02/10/2025 2:49 PM EDT [facility] MCHC 33.3 32.0 - 36.0 g/dL 02/10/2025 2:49 PM EDT [facility] RDW 14.5 11.0 - 15.0 % 02/10/2025 2:49 PM EDT [facility] Platelets 214 140 - 400 10*3/uL 02/10/2025 2:49 PM EDT [facility] MPV 10.1 7.5 - 12.5 fL 02/10/2025 2:49 PM EDT [facility] Neutrophil % 43.5 % 02/10/2025 2:49 PM EDT [facility] Immature Grans % 0.5 0.0 - 0.9 % 02/10/2025 2:49 PM EDT [facility] Lymphocyte % 31.1 % 02/10/2025 2:49 PM EDT [facility] Monocyte % 17.8 % 02/10/2025 2:49 PM EDT [facility] Eosinophil % 6.0 % 02/10/2025 2:49 PM EDT [facility] Basophil % 1.1 % 02/10/2025 2:49 PM EDT [facility] Neutrophil # 2.74 1.50 - 7.80 10*3/uL 02/10/2025 2:49 PM EDT [facility] Immature Grans # 0.03 <=0.03 10*3/uL 02/10/2025 2:49 PM EDT [facility] Lymphocyte # 2.00 0.85 - 3.90 10*3/uL 02/10/2025 2:49 PM EDT [facility] Monocyte # 1.10(H) 0.20 - 0.95 10*3/uL 02/10/2025 2:49 PM EDT [facility] Eosinophil # 0.40 0.02 - 0.50 10*3/uL 02/10/2025 2:49 PM EDT [facility] Basophil # 0.10 0.00 - 0.20 10*3/uL 02/10/2025 2:49 PM EDT [facility] nRBC % 0.0 /100 WBCs 02/10/2025 2:49 PM EDT [facility] nRBC # <0.01 <0.01 10*3/uL 02/10/2025 2:49 PM EDT [facility] Blood Structure of peripheral vein / Unknown Venipuncture / Unknown 02/10/2025 12:24 PM EDT 02/10/2025 12:24 PM EDT us Bg Clinton MD LAB BLOOD ORDERABLES Final Res ult [facility] [address] [place] [address], * (ABNORMAL) Comprehensive Metabolic Panel (02/10/2025 12:24 PM EDT) NA 142 135 - 145 mmol/L 02/10/2025 2:46 PM EDT [facility] K 4.4 3.5 - 5.3 mmol/L 02/10/2025 2:46 PM EDT [facility] Cl 104 98 - 107 mmol/L 02/10/2025 2:46 PM EDT [facility] CO2 27 22 - 32 mmol/L 02/10/2025 2:46 PM EDT [facility] Anion Gap 11 5 - 15 [facility] MANUAL 02/10/2025 2:46 PM EDT [facility] Glucose 86 65 - 99 mg/dL 02/10/2025 2:46 PM EDT [facility] Creatinine 1.15 0.60 - 1.30 mg/dL 02/10/2025 2:46 PM EDT [facility] Calcium 10.0 8.6 - 10.5 mg/dL 02/10/2025 2:46 PM EDT [facility] Total Protein 7.0 6.0 - 8.0 g/dL 02/10/2025 2:46 PM EDT [facility] Albumin 4.3 3.5 - 5.2 g/dL 02/10/2025 2:46 PM EDT [facility] Bilirubin, Total 0.7 0.2 - 1.2 mg/dL 02/10/2025 2:46 PM EDT [facility] Alkaline Phosphatase 85 35 - 129 U/L 02/10/2025 2:46 PM EDT [facility] AST 25 10 - 40 U/L 02/10/2025 2:46 PM EDT [facility] ALT 22 10 - 40 U/L 02/10/2025 2:46 PM EDT [facility] BUN 28(H) 7 - 23 mg/dL 02/10/2025 2:46 PM EDT [facility] eGFR 64 >=60 mL/min/1. 73m2 [facility] MANUAL 02/10/2025 2:46 PM EDT [facility] Comment:The estimated glomer ular [...] Globulin, Total 2.7 2.1 - 4.2 g/dL [facility] MANUAL 02/10/2025 2:46 PM EDT [facility] [employer] [facility] A/G Ratio 1.6 1.5 - 3.0 ASS MANUAL 02/10/2025 2:46 PM EDT [facility] [employer] [facility] Blood Structure of peripheral vein / Unknown Venipuncture / Unknown 02/10/2025 12:24 PM EDT 02/10/2025 12:24 PM EDT us Bg Clinton MD LAB BLOOD ORDERABLES Final Res ult [facility] [employer] [facility] [address] [place] [address], [place] from Last 3 Months Insurance MEDICARE [facility] Care Teams Operating Engineer Apprentice Relationship Specialty Start Date End Date Irving Valentin [address] [place] [address] [place] [address] PCP - General Internal Medicine 09/03/23
--- OUTSIDE RECORDS SUMMARY | 2025-03-23 15:40 | XMS_ITS | Patient Health Record ---
Author Organization [facility] Address [address] [facility] [place] [address] Care Team Providers Care Certified Pedorthotist Name Role Phone Homero BUCK, Irving Primary Care Provider Surinder Arriola Unavailable [phone] Allergies No Known Allergies Reason For Referral No Information Medications Medication SIG (Take, Route, Frequency, Duration) Notes Start Date End Date Status Omeprazole Active Folic Acid Active Ciclopirox Olamine 0.77 % 1 application to affected area Externally Twice a day for 30 days Not-Taking Tamsulosin HCl 0.4 MG 1 capsule Orally O nce a day Not-Taking Allopurinol 150mg Orally No t-Taking Lisinopril-hydroCHLOROthi azide Not-Taking Lisinopril 20 MG Orally Not -Taking Furosemide Active Carvedilol Active Atorvastatin Calcium 40 MG Orally Not-Taking Methotrexate Sodium 2.5 MG Oral for 28 Days Active aspirin baby Active Flomax Not-Taking Rosuvastatin Calcium Not-Taking Immunizations Vaccine Route Administration Date Status Comme nts COVID-19 Pfizer BioNTech Vaccine Unknown 09/22/2021 Administered 1st 12/31/2020 2nd 01/20/2021 Social History Tobacco Use: Social History Observation Description Date Details (start date - stop date) Never Smoker NA - NA Alcohol Screen Question Answer Notes Did you [...] (Standard) Question Answer Notes Tobacco use: Nonsmoker Problems Problem Type SNOMED Code ICD Code Onset Dates Problem Status W/U Status Risk Notes Problem Atherosclerosis of [place] arteries of the extremities (338942621402515) Atherosclerosis of [place] artery of both lower extremities, with unspecified presence of clinical manifestation (I70.203) Active confirmed Q7(A), Q8(2B), Q9(1B,2 C) Vital Signs Blood pressure diastolic 80 mm Hg 02/06/2025 Height 5 ft 11 in in 02/06/2025 Blood pressure systolic 120 mm Hg 02/06/2025 Weight 205 lbs 02/06/2025 BMI 28.59 kg/m2 02/06/2025 Procedures Procedure Date Ordered Date Performed Result Body Sit e 00187-LCJFFRZ NAIL, 6 OR MORE 06/13/2024 N/A 72598-Iizmshuc Plate 06/13/2024 N/A 85014-KAEY SKIN LESIONS, 2 TO 4 06/13/2024 N/A 57528-MRMMJOT NAIL, 6 OR MORE 09/19/2024 N/A 70947-Grsgcqzo Plate 09/19/2024 N/A 33905-UIAR SKIN LESIONS, 2 TO 4 09/19/2024 N/A 85704-UXDWOWE NAIL, 6 OR MORE 02/06/2025 N/A 11695-Jbzxdmfd Plate 02/06/2025 N/A 61076-YXSG SKIN LESIONS, 2 TO 4 02/06/2025 N/A Encounters Encounter Location Date Provider Diagnosis [address] [address] 06/13/2024 Surinder Brar Atherosclerosis of [place] artery of both lower extremities, with unspecified presence of clinical manifestation I70.203 ; Tinea unguium B35.1 ; Pain in right toe(s) M79.674 ; Pain in left toe(s) M79.675 and Ingrown nail L60.[address] [address] 09/19/2024 Surinder Zonia Atherosclerosis of [place] artery of both lower extremities, with unspecified presence of clinical manifestation I70.203 ; Tinea unguium B35.1 ; Pain in right toe(s) M79.674 ; Pain in left toe(s) M79.675 and Ingrown nail L60.[address] [facility] [address] 02/06/2025 Surinder Brar Atherosclerosis of [place] artery of both lower extremities, with unspecified presence of clinical manifestation I70.203 ; Tinea unguium B35.1 ; Pain in right toe(s) M79.674 ; Pain in left toe(s) M79.675 and Ingrown nail L60.[address] [address] 12/15/2024 Surinder Brar Assessments Encounter Date Diagnosis (ICD Code) Assessment Notes Treatment Notes Treatment Clinical Notes Section Notes 06/13/2024 Tinea unguium (ICD-10 - B35.1) 06/13/2024 Atherosclerosis of [place] artery of both lower extremities, with unspecified presence of clinical manifestation (ICD-10 - I70.203) 09/19/2024 Tinea unguium (ICD-10 - B35.1) 09/19/2024 Atherosclerosis of [place] artery of both lower extremities, with unspecified presence of clinical manifestation (ICD-10 - I70.203) 02/06/2025 Tinea unguium (ICD-10 - B35.1) 02/06/2025 Atherosclerosis of [place] artery of both lower extremities, with unspecified presence of clinical manifestation (ICD-10 - I70.203) Q7(A), Q8(2B), Q9(1B,2C) 02/06/2025 Pain in right toe(s) (ICD-10 - M79.674) 09/19/2024 Pain in right toe(s) (ICD-10 - M79.674) 06/13/2024 Pain in right toe(s) (ICD-10 - M79.674) 09/19/2024 Pain in left toe(s) (ICD-10 - M79.675) 06/13/2024 Pain in left toe(s) (ICD-10 - M79.675) 02/06/2025 Pain in left toe(s) (ICD-10 - M79.675) 09/19/2024 Ingrown nail (ICD-10 - L60.0) 02/06/2025 Ingrown nail (ICD-10 - L60.0) 06/13/2024 Ingrown nail (ICD-10 - L60.0) Plan Of Treatment Pending Test Test Name Order Date 80312-WAPLXJR NAIL, 6 OR MORE 02/23/2017 14114-VEKYWHS NAIL, 6 OR MORE 06/01/2017 56180-UQVFKBE NAIL, 6 OR MORE 08/31/2017 73172-ESXCVFP NAIL, 6 OR MORE 11/23/2017 97473-OFNRYAL NAIL, 6 OR MORE 02/22/2018 43139-AFRBCFM NAIL, 6 OR MORE 05/24/2018 72237-BBQCXHF NAIL, 6 OR MORE 08/23/2018 32732-HCKDRMH NAIL, 6 OR MORE 12/03/2018 75616-RHWIKCY NAIL, 6 OR MORE 03/07/2019 21393-JUPLVAR NAIL, 6 OR MORE 06/13/2019 91501-SGIDNVM NAIL, 6 OR MORE 10/03/2019 52791-JSHEWJY NAIL, 6 OR MORE 01/02/2020 10758-RBWLLBC NAIL, 6 OR MORE 04/09/2020 77673-QJTVIZS NAIL, 6 OR MORE 07/02/2020 47984-TTKAQBP NAIL, 6 OR MORE 10/08/2020 64058-RSPYKJH NAIL, 6 OR MORE 01/07/2021 08708-LAERWRV NAIL, 6 OR MORE 05/10/2021 99361-WKXNXBK NAIL, 6 OR MORE 08/09/2021 92299-NQZMELY NAIL, 6 OR MORE 11/22/2021 24113-YLMWSFB NAIL, 6 OR MORE 02/28/2022 85381-TYEVBSP NAIL, 6 OR MORE 07/25/2022 11046-OXXIOVE NAIL, 6 OR MORE 11/03/2022 20373-HQQRUTV NAIL, 6 OR MORE 02/09/2023 71328-IPBZEEM NAIL, 6 OR MORE 05/08/2023 35584-XWNSVRC NAIL, 6 OR MORE 08/24/2023 49203-HJHVOSY NAIL, 6 OR MORE 12/11/2023 48588-QMYZCPS NAIL, 6 OR MORE 03/14/2024 41439-IEIJCSZ NAIL, 6 OR MORE 06/13/2024 40143-PBQJUWF NAIL, 6 OR MORE 09/19/2024 39556-OBPAEQH NAIL, 6 OR MORE 02/06/2025 19537-Elyzajxt Plate 09/19/2024 11914-Krhfvekw Plate 06/13/2024 06666-Amnqeufi Plate 03/14/2024 71913-Ejgjhbnc Plate 12/11/2023 39066-Wbubzrrm Plate 08/24/2023 76905-Bjqtdpuf Plate 05/08/2023 21179-Epfdvhcf Plate 02/09/2023 18916-Numuajpj Plate 11/03/2022 82746-Hdawmwlf Plate 07/25/2022 21017-Vftkexjg Plate 02/28/2022 55983-Jnejipqo Plate 11/22/2021 77288-Jphzeuya Plate 08/09/2021 67233-Jvjsmsyd Plate 05/10/2021 82091-Lcovhrxv Plate 01/07/2021 67214-Ahjrrjle Plate 10/08/2020 43773-Bjpujnxq Plate 07/02/2020 94879-Ncnejbvn Plate 04/09/2020 62922-Govqsyal Plate 01/02/2020 52383-Arhqmdbt Plate 10/03/2019 96832-Evdkukil Plate 06/13/2019 58811-Hmqnwtml Plate 08/23/2018 46359-Xmjwajwo Plate 12/03/2018 84572-Vbvopexh Plate 03/07/2019 73224-Phhzllko Plate 02/22/2018 09533-Pveyjypw Plate 05/24/2018 45536-Nbhvqoal Plate 08/31/2017 54850-Dszvtfdq Plate 11/23/2017 52924-Pbnkmwre Plate 02/06/2025 50408-Axribxrn Plate Each Additional 04/2018 86334-Hfblwhxm Plate Each Additional 03/2018 91065-Ilmelvdp Plate Each Additional 58667-Jepkvvnf Plate Each Additional 04/2018 62947-Kkadrkuk Plate Each Additional 35792-Thamysnm Plate Each Additional 03/2018 84963-Pxkyyczr Plate Each Additional 80091-Zdogknxx Plate Each Additional 89903-Wuzitccf Plate Each Additional 32042-Mmznelyl Plate Each Additional 59434-Gocpeeqr Plate Each Additional 72016-Sihfhqda Plate Each Additional 24576-Ifnsortz Plate Each Additional 64085-Ihtlufue Plate Each Additional 11015-Pwbybdsw Plate Each Additional 59382-Gajrqhmj Plate Each Additional 16689-Jqdxliao Plate Each Additional 02/2022 14717-Ceuyfszg Plate Each Additional 10/2022 62913-GCMB SKIN LESIONS, 2 TO 4 06/13/20 24 02387-IGVJ SKIN LESIONS, 2 TO 4 09/19/20 24 63827-NGPM SKIN LESIONS, 2 TO 4 02/07/20 Next Appt Details Provider Name:Surinder Brar , 05/08/2025 12:15:00 PM, [address] [place], [address], Insurance Providers Payer Name Payer Address Payer Phone Subscriber Number Group Number Insured Name Patient Relationship to Insured Coverage Start Date Coverage End Date Medicare National Govt [employer] [address] [place] [address] [id number] Bryce Yarbrough Self - patient is the insured 8 [employer] Blue Shield [address] [place] [address] [id number] Bryce Yarbrough Self - patient is the insured Medical (General) History Medical History History ICD Code Cataracts Arthritis Gout Scarlet fever Stomach ulcer Measles Mumps Chicken pox Joint implants/screws Hypertension Prostate CAD Pain in Joints rash sleep apnea Surgical History Surgery Date(Month/Year) ankle surgery colonoscopy Gall bladder 08/28/2024 Hospitalization History Reason Date(Month/Year) [facility]- eye condition 12/13 [facility]-Blood infection/ gall bladder remove d 08/28/2024-
--- OUTSIDE RECORDS SUMMARY | 2025-03-23 15:40 | XMS_ITS ---
Author Organization [facility] Address [address] [place] [address] Care Team Providers Care Reproduction Production Manager Name Role Phone Irving Valentin MD Primary Care Provider Tre Guidry [phone] Encounters Encounter Location Date Provider Diagnosis [facility] [address] [place] [phone] 12/13/2023 Tre Moody Plan Of Treatment No Information Progress Notes * BLAZE MEJIA MDOB:1945 (78 yo M)Acc No.[id number]:12/13/2023 Patient:?BLAZE MEJIA :1945???Age:78 Y???Sex:Male Address:[address] [place] [address] * true * Date:? Generated for Dinorah saldaña/Lester/eTransmitting on:?03/23/2025 03:39 PM EDT
--- OUTSIDE RECORDS SUMMARY | 2025-03-23 15:40 | XMS_ITS ---
Author Organization [facility] Address [address] [place] [address] Care Team Providers Care Tip Puncher Name Role Phone Irving Valentin MD Primary Care Provider Unavaila Tre Brewster [phone] REASON FOR VISIT reflux Encounters Encounter Location Date Provider Diagnosis [facility] [address] [place] [address] 01/29/2024 Tre Moody Plan Of Treatment No Information Progress Notes * BLAZE MEJIA MDOB:1945 (78 yo M)Acc No.[id number]:01/29/2024 Patient:?BLAZE MEJIA :1945???Age:78 Y???Sex:Male Address:[address] [place] [address] * true * Date:? Generated for Dinorah saldaña/Lester/eTransmitting on:?03/23/2025 03:40 PM EDT
== END 2025-03-23 14:50 | disposition home or self-care (01) ==
LOC: HO.HMCH 14:04
PROVIDERS: PCP Internal Medicine
DX: I25.10 Atherosclerotic heart disease of native coronary artery without angina pectoris (principal); I27.20 Pulmonary hypertension, unspecified; E66.9 Obesity, unspecified; Z68.28 Body mass index [BMI] 28.0-28.9, adult; G47.33 Obstructive sleep apnea (adult) (pediatric); I10 Essential (primary) hypertension; K81.9 Cholecystitis, unspecified; H40.9 Unspecified glaucoma; L29.9 Pruritus, unspecified

== ENCOUNTER → 2025-03-23 14:03 | Outpatient (BNVA) | payer MEDICARE, SELFPAY | PROVIDERS: PCP Internal Medicine | DX: I25.10 Atherosclerotic heart disease of native coronary artery without angina pectoris (principal); G47.33 Obstructive sleep apnea (adult) (pediatric); E66.9 Obesity, unspecified; I27.20 Pulmonary hypertension, unspecified; I10 Essential (primary) hypertension; K81.9 Cholecystitis, unspecified; H40.9 Unspecified glaucoma; L29.9 Pruritus, unspecified | CPT/HCPCS: 99212 ==

== ENCOUNTER 2025-04-07 13:45 | Outpatient (AMB) | payer MEDICARE, SELFPAY ==
--- NOTE | 2025-04-07 13:53 | MHC.OFFVIS ---
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 Karate Instructor Required: No Allergies allopurinol Adverse Reaction (Mild, Verified 04/07/25 14:01) Rash atorvastatin Adverse Reaction (Mild, Verified 04/07/25 14:01) Rash Medication List - Last Reconciled 04/07/25 by Karla Kwan MD aspirin 81 mg PO DAILY brimonidine 0.2% 1 drp ophthalmic (eye) BID carvedilol (Coreg) 3.125 mg PO DAILY CPAP (CPAP Machine/Device) As directed diphenhydramine-acetaminophen 25-500 mg (Tylenol PM Extra Strength) 1 tab PO BEDTIME PRN folic acid 1 mg PO SUMOWETHFRSA@0900 furosemide 40 mg PO DAILY methotrexate sodium 15 mg PO TU@0900 [Shower chair As directed] [Walker As directed] Do you need a note to return to daycare/school/sports/work: No HPI HPI Obstructive sleep apnea: Details: This 79 years old very pleasant gentleman is here for sleep apnea follow-up. He has longstanding history of sleep apnea which has been treated very well with the application of CPAP. Uses CPAP regularly every night but for the last 2 2 weeks, has not been able to use it because of an ulcerated lesion over the scalp( Basal cell skin Being treated with radiation.) And it gets irritated with the head gear. When he does use the CPAP works well and he can sleep 6-7 hours every night. He continues to get supplies regularly, on time. [facility] Medical History Cholecystitis GEOVANNI (obstructive sleep apnea) Obesity (BMI 30.0-34.9) Renal insufficiency Hx of skin pruritus Gout Gastric ulcer Obesity Pulmonary hypertension Essential hypertension HLD (hyperlipidemia) Surgical History Hx of cholecystectomy H/O colonoscopy H/O foot surgery History of cataract surgery Family History Father No problems noted. Mother Colon cancer Sister Colon cancer Brother Stomach cancer Social History Household Members: None Housing: House Do you presently have visiting nurse or other home services: No Alcohol intake: never Comment: 2 MTHS AGO Patient Tobacco Use Status: Former Tobacco user e-Cigarette/Vaping Use: Never Used Second Hand Smoke Exposure: Yes Advance Directives Date on File: 08/23/20 service: No Current occupational status: retired Cognitive needs: Yes (Walker) Hearing needs: No Vision needs: Yes (Glasses) Review of Systems Const All systems reviewed & are unremarkable except as noted in HPI and below Eyes Reports no additional complaints ENT Reports no additional complaints Card Denies chest pain, Denies irregular heart rhythm, Reports leg edema and Reports dyspnea on exertion Resp Denies cough, Reports dyspnea on exertion and Denies wheezing GI Reports no additional complaints Reports nocturia Musc Reports no additional complaints and Reports abnormal gait (GAIT IS SLIGHTLY SLOW AND HE USES A CANE) Skin/Breast Reports rash (NONSPECIFIC SKIN CONDITION SINCE LAST YEAR) Neuro Reports abnormal gait (GAIT IS SLIGHTLY SLOW AND HE USES A CANE) Psych Reports depression (MILD) Endo Reports no additional complaints Jose Antonio/Lymph Reports no additional complaints Aller/Immun Denies wheezing Physical Exam Vital Signs: Last Vital Signs Pulse 77 04/07/25 13:54 BP 110/64 04/07/25 13:54 Pulse Ox 97 04/07/25 13:54 Oxygen Delivery Method Room Air 04/07/25 13:54 BMI result Body Mass Index 29.0 Const Other: HE IS MODERATELY OBESE, SLOW IN WALKING. General: comfortable, no acute distress, alert and awake Orientation/consciousness: patient oriented x3 HEENT Head: Yes normal to inspection and Yes other (Small ulcerated area on the scalp ( Basil Cell Ca) , being treated with R/T) General nose exam: No nasal polyps present and No nasal discharge present Face and sinus: Yes sinuses nontender Mouth: oropharynx abnormals (MODERATELY NARROW AND CROWDED. MALLAMPATI SCALE 3.) Throat: Yes posterior oropharynx normal Eyes General: appearance normal, both eyes and all related structures Neck Neck: Yes normal visual inspection, Yes no lymphadenopathy, Yes trachea midline, Yes no JVD and Yes other (NECK CIRCUMFERENCE 17 IN) Thyroid: Thyroid normal Chest Chest palpation & inspection: normal inspection of the chest, normal palpation of entire chest wall and no tenderness Resp Other: PERCUSSION NOTE IS RESONANT, HE HAS EQUAL BREATH SOUNDS ON BOTH SIDES. BREATH SOUNDS ARE VESICULAR. NO WHEEZES OR CREPITATIONS ARE HEARD. Cardio Palpation: normal PMI Rate: regular rate Rhythm: regular rhythm Heart sounds: no gallops and no murmurs GI Palpation (GI): Soft to palpation, nontender, No hepatosplenomegaly present and no masses Auscultation: normal bowel sounds Back/Spine/Pelvis Thoracic/Lumbar Spine: thoracic and lumbar spine normal to inspection Skin General skin exam: other (HE HAS GENERALIZED, NONSPECIFIC RASH ON HIS TRUNK AND ALL ARMS.) Neuro General: patient oriented x3, No gait normal (MOSTLY NORMAL BUT SLOW AND HE HAS TO USE CANE) and no focal motor deficits Cranial nerves: Yes CN's II-XII intact bilaterally Extrem General: Yes normal to inspection, Yes no calf tenderness and Yes edema (Only minimal degree of edema around the ankles.) Psych Appearance: grossly normal and well kempt Speech and movement: Normal speech and movement present Affect: Sad affect present Results Reviewed Results Reviewed: Compliance report for the last 30 nights is reviewed. He stopped using the CPAP about a week ago because of the skin lesion on the scalp. He intends to start using it after about 1 week when. The skin Lesion is well healed generally he has been very compliant . Assessment & Plan Assessment & Plan (1) GEOVANNI (obstructive sleep apnea): Comment: KNOWN CASE OF OBSTRUCTIVE SLEEP APNEA. WELL TREATED WITH USE OF CPAP . NORMALLY HE USES CPAP EVERY NIGHT REGULARLY. USING CPAP ON AN AVERAGE FOR 5 HOURS EVERY NIGHT. DENIES DAYTIME SLEEPINESS. Code(s): G47.33 - Obstructive sleep apnea (adult) (pediatric) Category: Medical Plan: Advised to continue using the CPAP. Start using it as soon as the skin ulcer on the scalp is he. (2) Pulmonary hypertension: Comment: REPORTED IN ECHOCARDIOGRAM STUDY THAT HE HAS MILD PULMONARY HYPERTENSION. WITH THE USE OF CPAP THERAPY IT IS EXPECTED TO IMPROVE. Code(s): I27.20 - Pulmonary hypertension, unspecified Category: Medical Plan: as above (3) Obesity (BMI 30.0-34.9): Comment: PATIENT IS MODERATELY OBESE, THIS IS PARTLY DUE TO EDEMA OF LOWER EXTREMITIES. HE IS NOT FIT TO DO MUCH EXERCISE OR EVEN WALK. SO I DO NOT EXPECT HIM TO LOSE MUCH WEIGHT, EXCEPT WITH DIURESIS. Code(s): E66.9 - Obesity, unspecified Category: Medical Plan: Watch diet, keep the salt intake low . Coding Level of Care Code Est Pt Level 3 (10750) Diagnoses GEOVANNI (obstructive sleep apnea) G47.33 Pulmonary hypertension I27.20 Obesity (BMI 30.0-34.9) E66.9
[2025-04-07 13:54] VITALS: BP 110/64; PULSE 77; O2SAT 97; BMI 29.0
--- OUTSIDE RECORDS SUMMARY | 2025-04-07 14:56 | XMS_ITS | Referral Summary ---
Author Organization [facility] Address [address] [place] [address] Care Team Providers Care Refinery Process Engineer Name Role Phone Irving Valentin Primary Care Provider [phone] Encounters Date Type Department Care Team Description 03/31/2025 4:00 PM EDT Office Visit [facility] [address]th [address] [place] [phone] Lead Welder: Bg Noland MD Chronic actinic dermatitis (Primary Dx); Diffuse photodamage of skin 03/23/2025 myChart Message [facility] [address] [place] [phone] Lead Welder: Bg Noland MD New lesion on head 03/23/2025 Refill [facility] 4th Floor [address] [facility], [place] [phone] Lead Welder: Bg Noland MD Dermal hypersensitivity reaction 03/23/2025 Refill [facility] 4th Floor [address] [place] [phone] Lead Welder: Bg Noland MD Dermal hypersensitivity reaction 02/11/2025 Results Follow-Up [facility] 4th [address] [place] [phone] Lead Welder: Bg Noland MD 02/10/2025 11:15 AM EDT Follow-Up [facility] [address] [place] [address], [place] [phone] Lead Welder: Bg Noland MD Dermal hypersensitivity reaction (Primary Dx); High risk medication use; Actinic keratosis from Last 3 Months Allergies Active Allergy [...] as needed 454 g 3 023 Active triamcinolone acetonide (KENALOG) 0.1% creamIndications:De rmatitis Apply to rash twice daily until flat and smooth. Do not use on face, in genital area or in skin folds. 454 g 023 Active fluorouraciL (EFUDEX) 5% cream Apply a tiny dab to affected area twice daily for 2 weeks. Redness and irritation is expected. 40 g 025 Active fexofenadine (SIMONE) 180 mg tablet Take 180 [...] DAYS A WEEK 24 tablet 025 Active fluorouraciL (EFUDEX) 5% creamIndications:Ch ronic actinic dermatitis,Diffuse photodamage of skin Apply thin layer of cream to rough spots on scalp twice daily for 2 weeks. Redness and irritation is expected. 40 g 1 025 Active folic acid (FOLVITE) 1 mg [...] Administration Dates Next Due Covid-19, Pfizer, mRNA, Baxter valent, PF 30 mcg/0.3 mL dose (for [...] 05/12/2025 10:00 AM EDT Office Visit [facility] [address] [place] [phone] Lead Welder: Bg Noland MD [address] [place] [phone] 06/29/2025 9:30 AM EDT Office Visit [facility] [address] [place] [phone] Lead Welder: Bg Noland MD [address] [place] [phone] Procedures * Due to [place] state law, this organization might not be sharing negative HIV tests. Procedure Name Priority Date/Time Associated Diagnosis Comments CBC AUTO DIFFERENTIAL Routine 02/10/2025 12:24 PM EDT High risk medication use COMPREHENSIVE METABOLIC PANEL Routine 02/10/2025 12:24 PM EDT High risk medication use from Last 3 Months Results * Due to [place] state law, this organization might not be sharing negative HIV tests. * (ABNORMAL) CBC Auto Differential (02/10/2025 12:24 PM EDT) WBC 6.3 3.8 - 10.8 10*3/uL 02/10/2025 2:49 PM EDT [facility] RBC 4.46 4.20 - 5.80 10*6/uL 02/10/2025 2:49 PM EDT [facility] Hemoglobin 14.0 13.2 - 17.1 g/dL 02/10/2025 2:49 PM EDT [facility] Hematocrit 42.1 38.5 - 50.0 % 02/10/2025 2:49 PM EDT [facility] MCV 94.4 80.0 - 100.0 fL 02/10/2025 2:49 PM EDT [facility] MCH 31.4 27.0 - 33.0 pg 02/10/2025 2:49 PM EDT [facility] MCHC 33.3 32.0 - 36.0 g/dL 02/10/2025 2:49 PM EDT [facility] RDW 14.5 11.0 - 15.0 % 02/10/2025 2:49 PM EDT [facility] Platelets 214 140 - 400 10*3/uL 02/10/2025 2:49 PM EDT [facility] MPV 10.1 7.5 - 12.5 fL 02/10/2025 2:49 PM EDT [facility] Neutrophil % 43.5 % 02/10/2025 2:49 PM EDT [facility] Immature Grans % 0.5 0.0 - 0.9 % 02/10/2025 2:49 PM EDT [facility] Lymphocyte % 31.1 % 02/10/2025 2:49 PM EDT [facility] Monocyte % 17.8 % 02/10/2025 2:49 PM EDT [facility] Eosinophil % 6.0 % 02/10/2025 2:49 PM EDT [facility] Basophil % 1.1 % 02/10/2025 2:49 PM EDT [facility] Neutrophil # 2.74 1.50 - 7.80 10*3/uL 02/10/2025 2:49 PM EDT [facility] Immature Grans # 0.03 <=0.03 10*3/uL 02/10/2025 2:49 PM EDT [facility] Lymphocyte # 2.00 0.85 - 3.90 10*3/uL 02/10/2025 2:49 PM EDT [facility] Monocyte # 1.10(H) 0.20 - 0.95 10*3/uL 02/10/2025 2:49 PM EDT [facility] Eosinophil # 0.40 0.02 - 0.50 10*3/uL 02/10/2025 2:49 PM EDT [facility] Basophil # 0.10 0.00 - 0.20 10*3/uL 02/10/2025 2:49 PM EDT [facility] nRBC % 0.0 /100 WBCs 02/10/2025 2:49 PM EDT [facility] nRBC # <0.01 <0.01 10*3/uL 02/10/2025 2:49 PM EDT [facility] Blood Structure of peripheral vein / Unknown Venipuncture / Unknown 02/10/2025 12:24 PM EDT 02/10/2025 12:24 PM EDT us Bg Clinton MD LAB BLOOD ORDERABLES Final Res ult [facility] [address] [place] [address], [place] * (ABNORMAL) Comprehensive Metabolic Panel (02/10/2025 12:24 PM EDT) NA 142 135 - 145 mmol/L 02/10/2025 2:46 PM EDT [facility] K 4.4 3.5 - 5.3 mmol/L 02/10/2025 2:46 PM EDT [facility] Cl 104 98 - 107 mmol/L 02/10/2025 2:46 PM EDT [facility] CO2 27 22 - 32 mmol/L 02/10/2025 2:46 PM EDT [facility] Anion Gap 11 5 - 15 [facility] 02/10/2025 2:46 PM EDT [facility] Glucose 86 65 - 99 mg/dL 02/10/2025 2:46 PM EDT [facility] Creatinine 1.15 0.60 - 1.30 mg/dL 02/10/2025 2:46 PM EDT [facility] Calcium 10.0 8.6 - 10.5 mg/dL 02/10/2025 2:46 PM EDT [facility] Total Protein 7.0 6.0 - 8.0 g/dL 02/10/2025 2:46 PM EDT [facility] Albumin 4.3 3.5 - 5.2 g/dL 02/10/2025 2:46 PM EDT [facility] Bilirubin, Total 0.7 0.2 - 1.2 mg/dL 02/10/2025 2:46 PM EDT [facility] Alkaline Phosphatase 85 35 - 129 U/L 02/10/2025 2:46 PM EDT [facility] AST 25 10 - 40 U/L 02/10/2025 2:46 PM EDT [facility] ALT 22 10 - 40 U/L 02/10/2025 2:46 PM EDT [facility] BUN 28(H) 7 - 23 mg/dL 02/10/2025 2:46 PM EDT [facility] eGFR 64 >=60 mL/min/1. 73m2 [facility] MANUAL 02/10/2025 2:46 PM EDT [facility] Comment:The estimated glomer ular [...] Globulin, Total 2.7 2.1 - 4.2 g/dL [facility] 02/10/2025 2:46 PM EDT [facility] A/G Ratio 1.6 1.5 - 3.0 [facility] MANUAL 02/10/2025 2:46 PM EDT [facility] Blood Structure of peripheral vein / Unknown Venipuncture / Unknown 02/10/2025 12:24 PM EDT 02/10/2025 12:24 PM EDT us Bg Clinton MD LAB BLOOD ORDERABLES Final Res ult [facility] [address] [place] [address], from Last 3 Months Insurance MEDICARE [facility] MCR SUPP Care Teams Refinery Process Engineer Relationship Specialty Start Date End Date Irving Valentin [address] [place] [address] [place] [address] PCP - General Internal Medicine 09/03/23
--- OUTSIDE RECORDS SUMMARY | 2025-04-07 14:56 | XMS_ITS ---
Author Organization [facility] Address [address] [place] [address] Care Team Providers Care Car Worker Helper Name Role Phone Irving Valentin MD Primary Care Provider UnavailSurinder Almonte [phone] REASON FOR VISIT RS 12/19/24 APPT Encounters Encounter Location Date Provider Diagnosis [address] [phone] 12/15/2024 Surinder Brar Plan Of Treatment Next Appt Details Provider Name:Surinder Brar , 05/08/2025 12:15:00 PM, [address] [place] [address], [phone], Progress Notes * Bryce MEJIADOB:1945 ([age] yo M)Acc No.[id number]:12/15/2024 Patient:?Bryce MEJIA :1945???Age:79 Y???Sex:Male Address:[address] [place] [address] * true * Date:? Generated for Printi ng/Faxing/eTransmitting on:?04/07/2025 02:56 PM EDT
--- OUTSIDE RECORDS SUMMARY | 2025-04-07 14:56 | XMS_ITS | Clinical Summary ---
Author Organization [facility] Address [address] [place] [address] Care Team Providers Care Security Compliance Specialist Name Role Phone Irving Valentin Primary Care Provider Allergies Active Allergy Reactions Criticality Noted Date [...] Description 03/31/2025 4:00 PM EDT Office Visit [facility] 4th [address] [place] [phone] Ostomy Nurse: Bg Noland MD Chronic actinic dermatitis (Primary Dx); Diffuse photodamage of skin 03/23/2025 myChart Message [facility] 4th [address] [place] [address], [place] [phone] Ostomy Nurse: Bg Noland MD New lesion on head 03/23/2025 Refill [facility] 4th [address] [place] [address], [place] [phone] Ostomy Nurse: Bg Noland MD Dermal hypersensitivity reaction 03/23/2025 Refill [facility] 4th [address] [place] [address], [place] [phone] Ostomy Nurse: Bg Noland MD Dermal hypersensitivity reaction 02/11/2025 Results Follow-Up [facility] [address], [place] [address] Ostomy Nurse: Bg Noland MD 02/10/2025 11:15 AM EDT Follow-Up [facility] [address], [place] [address] Ostomy Nurse: Bg Noland MD Dermal hypersensitivity reaction (Primary Dx); High risk medication use; Actinic keratosis from Last 3 Months Immunizations Immunization Administration Dates Next Due Covid-19, Pfizer, mRNA, Ciales valent, PF 30 mcg/0.3 mL dose (for [...] Description 05/12/2025 10:00 AM EDT Office Visit [facility] [address] [place] [phone] Ostomy Nurse: Bg Noland MD [address] [place] [phone] 06/29/2025 9:30 AM EDT Office Visit [facility] [address] [place] [phone] Ostomy Nurse: Bg Noland MD [address] [place] [phone] Health Maintenance Due Date Last Done Comments Medicare AWV 1946 Zoster Vaccines (1 of 2) 1993 Pneumococcal Vaccine: 50+ Years (2 of 2 - PCV) 01/05/2010 01/05/2009 RSV Vaccine (60+ years old and patients) (1 - 1-dose 75+ series) 2018 COVID-19 Vaccine (3 - season) 2024 09/12/2021, 01/20/2021 Alcohol/Substance Use Screening 11/19/2024 Depression Screening and Follow-Up 11/19/2024 Health Care Proxy Review 11/19/2024 Social Drivers of Health Annual Screening 11/19/2024 Basic Metabolic Panel 02/10/2026 02/10/2025 , 10/14/2024, 02/18/2016, Additional history exists Fall Risk Screening 03/31/2026 03/31/2025 DTaP,Tdap,and Td Vaccines (2 - Td or Tdap) 05/26/2031 05/26/2021, 05/03/2018 Tobacco Screening 11/19/2042 03/31/2025 Influenza Vaccine Completed 08/30/2024, , 09/04/2022, Additional history exists Hepatitis B Vaccines Aged Out No long er eligible based on patient's age to complete this topic Procedures * Due to [place] [employer] law, this organization might not be sharing negative HIV tests. Procedure Name Priority Date/Time Associated Diagnosis Comments CBC AUTO DIFFERENTIAL Routine 02/10/2025 12:24 PM EDT High risk medication use COMPREHENSIVE METABOLIC PANEL Routine 02/10/2025 12:24 PM EDT High risk medication use from Last 3 Months Results * Due to [place] [employer] law, this organization might not be sharing negative HIV tests. * (ABNORMAL) CBC Auto Differential (02/10/2025 12:24 PM EDT) WBC 6.3 3.8 - 10.8 10*3/uL 02/10/2025 2:49 PM EDT [email or web address] RBC 4.46 4.20 - 5.80 10*6/uL 02/10/2025 2:49 PM EDT [facility] Hemoglobin 14.0 13.2 - 17.1 g/dL 02/10/2025 2:49 PM EDT [email or web address] Hematocrit 42.1 38.5 - 50.0 % 02/10/2025 2:49 PM EDT [facility] MCV 94.4 80.0 - 100.0 fL 02/10/2025 2:49 PM EDT [facility] MCH 31.4 27.0 - 33.0 pg 02/10/2025 2:49 PM EDT [facility] MCHC 33.3 32.0 - 36.0 g/dL 02/10/2025 2:49 PM EDT [facility] RDW 14.5 11.0 - 15.0 % 02/10/2025 2:49 PM EDT [facility] Platelets 214 140 - 400 10*3/uL 02/10/2025 2:49 PM EDT [facility] MPV 10.1 7.5 - 12.5 fL 02/10/2025 2:49 PM EDT [facility] Neutrophil % 43.5 % 02/10/2025 2:49 PM EDT [facility] Immature Grans % 0.5 0.0 - 0.9 % 02/10/2025 2:49 PM EDT [facility] Lymphocyte % 31.1 % 02/10/2025 2:49 PM EDT [facility] Monocyte % 17.8 % 02/10/2025 2:49 PM EDT [facility] Eosinophil % 6.0 % 02/10/2025 2:49 PM EDT [facility] Basophil % 1.1 % 02/10/2025 2:49 PM EDT [facility] Neutrophil # 2.74 1.50 - 7.80 10*3/uL 02/10/2025 2:49 PM EDT [facility] Immature Grans # 0.03 <=0.03 10*3/uL 02/10/2025 2:49 PM EDT [facility] Lymphocyte # 2.00 0.85 - 3.90 10*3/uL 02/10/2025 2:49 PM EDT [facility] Monocyte # 1.10(H) 0.20 - 0.95 10*3/uL 02/10/2025 2:49 PM EDT [facility] Eosinophil # 0.40 0.02 - 0.50 10*3/uL 02/10/2025 2:49 PM EDT [facility] Basophil # 0.10 0.00 - 0.20 10*3/uL 02/10/2025 2:49 PM EDT [facility] nRBC % 0.0 /100 WBCs 02/10/2025 2:49 PM EDT [email or web address] nRBC # <0.01 <0.01 10*3/uL 02/10/2025 2:49 PM EDT [email or web address] Blood Structure of peripheral vein / Unknown Venipuncture / Unknown 02/10/2025 12:24 PM EDT 02/10/2025 12:24 PM EDT us Bg Clinton MD LAB BLOOD ORDERABLES Final Res [facility] [address] [place] [address], [place] * (ABNORMAL) Comprehensive Metabolic Panel (02/10/2025 12:24 PM EDT) NA 142 135 - 145 mmol/L 02/10/2025 2:46 PM EDT [email or web address] K 4.4 3.5 - 5.3 mmol/L 02/10/2025 2:46 PM EDT [email or web address] Cl 104 98 - 107 mmol/L 02/10/2025 2:46 PM EDT [email or web address] CO2 27 22 - 32 mmol/L 02/10/2025 2:46 PM EDT [email or web address] Anion Gap 11 5 - 15 [facility] 02/10/2025 2:46 PM EDT [email or web address] Glucose 86 65 - 99 mg/dL 02/10/2025 2:46 PM EDT [email or web address] Creatinine 1.15 0.60 - 1.30 mg/dL 02/10/2025 2:46 PM EDT [email or web address] Calcium 10.0 8.6 - 10.5 mg/dL 02/10/2025 2:46 PM EDT [email or web address] Total Protein 7.0 6.0 - 8.0 g/dL 02/10/2025 2:46 PM EDT [email or web address] Albumin 4.3 3.5 - 5.2 g/dL 02/10/2025 2:46 PM EDT [email or web address] Bilirubin, Total 0.7 0.2 - 1.2 mg/dL 02/10/2025 2:46 PM EDT [email or web address] Alkaline Phosphatase 85 35 - 129 U/L 02/10/2025 2:46 PM EDT [email or web address] AST 25 10 - 40 U/L 02/10/2025 2:46 PM EDT [email or web address] ALT 22 10 - 40 U/L 02/10/2025 2:46 PM EDT [email or web address] BUN 28(H) 7 - 23 mg/dL 02/10/2025 2:46 PM EDT [email or web address] eGFR 64 >=60 mL/min/1. 73m2 [facility] 02/10/2025 2:46 PM EDT [email or web address] Comment:The estimated glomer ular [...] g/dL [facility] 02/10/2025 2:46 PM EDT [email or web address] A/G Ratio 1.6 1.5 - 3.0 [facility] 02/10/2025 2:46 PM EDT [email or web address] Blood Structure of peripheral vein / Unknown Venipuncture / Unknown 02/10/2025 12:24 PM EDT 02/10/2025 12:24 PM EDT us Bg Clinton MD LAB BLOOD ORDERABLES Final Res ult [facility] [address] [place] [address], from Last 3 Months Insurance MEDICARE [facility] Care Teams Security Compliance Specialist Relationship Specialty Start Date End Date Irving Valentin [address] [place] [address] PCP - General Internal Medicine 09/03/23
--- OUTSIDE RECORDS SUMMARY | 2025-04-07 14:56 | XMS_ITS | Clinical Summary ---
Author Organization [facility] Address [address] [place] [address] Phone Care Team Providers Care Milieu Manager Name Role Phone Irving Valentin MD Primary Care Provider [phone] Allergies No known active allergies Medications allopurinol [...] age to complete this topic Insurance Medicare [facility] Medicare [facility] Care Teams Milieu Manager Relationship Specialty Start Date End Date Irving Valentin MD [facility] [address] [place], [place] PCP - General Internal Medicine 12/19/22
--- OUTSIDE RECORDS SUMMARY | 2025-04-07 14:57 | XMS_ITS | Encounter Summary ---
Author Organization [facility] Address [address] [place] [address] Care Team Providers Care Fourdrinier Tender Name Role Phone Irving Valentin Primary Care Provider [phone] Encounter Details Date Type Department Care Team (Late st Contact Info) Description 03/23/2025 myChart Message [facility] 4th Floor [address] [place] [phone] Certified Ophthalmic Medical Technician: Bg Noland MD [address] [place] [address] New lesion on head Social History Tobacco Use Types Packs/Day Years [...] encounter Miscellaneous Notes * Telephone Encounter - Jocelin Pradhan - 03/26/2025 10:15 AM EDT Appt scheduled documented in this encounter Plan of Treatment Upcoming Encounters Date Type Department Care Team (Late st Contact Info) Description 05/12/2025 10:00 AM EDT Office Visit [facility] 4th Floor [address] [place] [phone] Certified Ophthalmic Medical Technician: Bg Noland MD [address] [place] [phone] 06/29/2025 9:30 AM EDT Office Visit [facility] 4th [address] [place] [address], [place] [phone] Certified Ophthalmic Medical Technician: Bg Noland MD [address] [place] [phone] documented as of this encounter Visit Diagnoses Not on filedocumented in this encounter Care Teams Fourdrinier Tender Relationship Specialty Start Date End Date Irving Valentin [address] [place] [address] [place] [address] PCP - General Internal Medicine 09/03/23 documented as of this encounter
--- OUTSIDE RECORDS SUMMARY | 2025-04-07 14:57 | XMS_ITS ---
Author Organization [facility] Address [address] [place] [phone] Care Team Providers Care Flatbed Owner Operator Name Role Phone Irving Valentin MD Primary Care Provider Tre Guidry [phone] Allergies No Known Allergies REASON FOR VISIT [...] 02/05/2024 Encounters Encounter Location Date Provider Diagnosis [facility] [address] [place] [phone] 02/05/2024 Tre Moody Gastroesophageal ref lux disease, [...] * BLAZE MEJIA MDOB:1945 (78 yo M)Acc No.[id number]:02/05/2024 Progress Notes Patient:?BLAZE MEJIA Provider:?Tre Moody MD :1945???Age:78 Y???Sex:Male Melo e:02/05/2024 Address:[address] [place], [place] [id number] Pcp:Irving Valentin MD Subjective: * Chief Complaints: [...] if problems?? * Procedure Codes:?1036F TOBAC CO NON-[id number] BP SCR NOT PRFRM REC REASON NOS * Preventive Medicine:? ??Counseling:?Care goal follow-up plan:?Above Normal BMI Follow-up?Giving encouragement to exercise,?BMI management provided?Yes.? * Follow Up:?prn * * Sign off status: Completed true * Provider:?Tre Moody MD Date:? 024 Generated for Dinorah saldaña/Lester/eTransmitting on:?04/07/2025 02:56 PM EDT History and Physical Notes * [...]
--- OUTSIDE RECORDS SUMMARY | 2025-04-07 14:57 | XMS_ITS | Patient Health Record ---
Author Organization [facility] Address [address] [facility] [place] [address] Care Team Providers Care Sweet Pickled Fruit Maker Name Role Phone Homero BUCK, Irving Primary Care Provider Surinder Arriola Unavailable [phone] Allergies No Known Allergies Reason For Referral [...] W/U Status Risk Notes Problem Atherosclerosis of omaha arteries of the extremities (925704209176172) Atherosclerosis of omaha artery of both lower extremities, with unspecified presence of clinical manifestation (I70.203) Active confirmed Q7(A), Q8(2B), Q9(1B,2 C) Vital Signs Blood pressure diastolic 80 mm Hg 02/06/2025 Height 5 ft 11 in in 02/06/2025 Blood pressure systolic 120 mm Hg 02/06/2025 Weight 205 lbs 02/06/2025 BMI 28.59 kg/m2 02/06/2025 Procedures Procedure Date Ordered Date Performed Result Body Sit e 93320-FWWIOWY NAIL, 6 OR MORE 06/13/2024 N/A 55353-Ktoywdyl Plate 06/13/2024 N/A 04022-ZMOM SKIN LESIONS, 2 TO 4 06/13/2024 N/A 30751-NICNJQN NAIL, 6 OR MORE 09/19/2024 N/A 45030-Ngqzsjed Plate 09/19/2024 N/A 19027-ZGDF SKIN LESIONS, 2 TO 4 09/19/2024 N/A 79274-BFINWAK NAIL, 6 OR MORE 02/06/2025 N/A 17846-Xbmitxev Plate 02/06/2025 N/A 75503-JDAK SKIN LESIONS, 2 TO 4 02/06/2025 N/A Encounters Encounter Location Date Provider Diagnosis [address] [address] 06/13/2024 Surinder Brar Atherosclerosis of omaha artery of both lower extremities, with unspecified presence of clinical manifestation I70.203 ; Tinea unguium B35.1 ; Pain in right toe(s) M79.674 ; Pain in left toe(s) M79.675 and Ingrown nail L60.[address] [address] 09/19/2024 Surinder Zonia Atherosclerosis of omaha artery of both lower extremities, with unspecified presence of clinical manifestation I70.203 ; Tinea unguium B35.1 ; Pain in right toe(s) M79.674 ; Pain in left toe(s) M79.675 and Ingrown nail L60.[address] [facility] [address] 02/06/2025 Suirnder Brar Atherosclerosis of omaha artery of both lower extremities, with unspecified presence of clinical manifestation I70.203 ; Tinea unguium B35.1 ; Pain in right toe(s) M79.674 ; Pain in left toe(s) M79.675 and Ingrown nail L60.[address] [address] 12/15/2024 Surinder Brar Assessments Encounter Date Diagnosis (ICD Code) Assessment Notes Treatment Notes Treatment Clinical Notes Section Notes 06/13/2024 Tinea unguium (ICD-10 - B35.1) 06/13/2024 Atherosclerosis of omaha artery of both lower extremities, with unspecified presence of clinical manifestation (ICD-10 - I70.203) 09/19/2024 Tinea unguium (ICD-10 - B35.1) 09/19/2024 Atherosclerosis of omaha artery of both lower extremities, with unspecified presence of clinical manifestation (ICD-10 - I70.203) 02/06/2025 Tinea unguium (ICD-10 - B35.1) 02/06/2025 Atherosclerosis of omaha artery of both lower extremities, with unspecified [...] Treatment Pending Test Test Name Order Date 09437-JPCMMTG NAIL, 6 OR MORE 02/23/2017 11472-TKHRQUF NAIL, 6 OR MORE 06/01/2017 72467-BTMNEJA NAIL, 6 OR MORE 08/31/2017 32011-ROPWZGE NAIL, 6 OR MORE 11/23/2017 48682-UTRDVOF NAIL, 6 OR MORE 02/22/2018 86184-NTCFWMG NAIL, 6 OR MORE 05/24/2018 06020-ZWENUTL NAIL, 6 OR MORE 08/23/2018 10006-EWNMOSH NAIL, 6 OR MORE 12/03/2018 84158-ATDSHJF NAIL, 6 OR MORE 03/07/2019 68178-LEWRMUM NAIL, 6 OR MORE 06/13/2019 57608-KBXZRQO NAIL, 6 OR MORE 10/03/2019 72141-IBYSTIE NAIL, 6 OR MORE 01/02/2020 82946-LXBCXAN NAIL, 6 OR MORE 04/09/2020 72211-YMDOOSF NAIL, 6 OR MORE 07/02/2020 63226-SOIQTBM NAIL, 6 OR MORE 10/08/2020 34441-XEXBTJE NAIL, 6 OR MORE 01/07/2021 23103-RXDGSXE NAIL, 6 OR MORE 05/10/2021 54813-NAJCXVS NAIL, 6 OR MORE 08/09/2021 03051-NQQDRJN NAIL, 6 OR MORE 11/22/2021 54564-TVIZVST NAIL, 6 OR MORE 02/28/2022 91575-YSVJXJI NAIL, 6 OR MORE 07/25/2022 22579-DMQONAF NAIL, 6 OR MORE 11/03/2022 77276-EIZUEDI NAIL, 6 OR MORE 02/09/2023 72117-OHJERST NAIL, 6 OR MORE 05/08/2023 10809-SABWMQF NAIL, 6 OR MORE 08/24/2023 57002-BFXTHZW NAIL, 6 OR MORE 12/11/2023 79539-EISCGDP NAIL, 6 OR MORE 03/14/2024 45238-DXRUNIR NAIL, 6 OR MORE 06/13/2024 37917-RMIZWWA NAIL, 6 OR MORE 09/19/2024 85545-NLIKVTA NAIL, 6 OR MORE 02/06/2025 54466-Dvtvhubp Plate 09/19/2024 01945-Criqplpi Plate 06/13/2024 95718-Rjyviyhs Plate 03/14/2024 26209-Iaynapxb Plate 12/11/2023 53295-Nmfxudiq Plate 08/24/2023 43028-Hgdjcocm Plate 05/08/2023 98490-Pooevnbx Plate 02/09/2023 33249-Zgsczxfj Plate 11/03/2022 46545-Rdplhrnh Plate 07/25/2022 40760-Hcjodjfs Plate 02/28/2022 37554-Ndhebbkr Plate 11/22/2021 79663-Hywrwjvk Plate 08/09/2021 97393-Yylelydf Plate 05/10/2021 76212-Pvpusrvb Plate 01/07/2021 31095-Vkeqranr Plate 10/08/2020 79740-Dfylaiuj Plate 07/02/2020 69866-Qhwuqrbu Plate 04/09/2020 45536-Mtfyyocs Plate 01/02/2020 11531-Qiprgyrb Plate 10/03/2019 05410-Gepinpka Plate 06/13/2019 07052-Xdxrhwns Plate 08/23/2018 42616-Nccnhyez Plate 12/03/2018 45069-Znttnzrp Plate 03/07/2019 24573-Wytifrwq Plate 02/22/2018 44355-Mgpkodmq Plate 05/24/2018 39897-Hanitrpl Plate 08/31/2017 23286-Uehkgkbf Plate 11/23/2017 19685-Hglklnug Plate 02/06/2025 98186-Joomtpur Plate Each Additional 04/2018 20737-Jzeugfal Plate Each Additional 03/2018 93223-Bjcxcplf Plate Each Additional 67598-Whzrscgr Plate Each Additional 04/2018 20043-Qhwflvyt Plate Each Additional 26550-Zvozeyti Plate Each Additional 03/2018 36637-Gayfuqwz Plate Each Additional 12741-Etbrlnnw Plate Each Additional 55961-Lgjhlnpx Plate Each Additional 84217-Yvxkitdw Plate Each Additional 90769-Kdmbfuto Plate Each Additional 61443-Rkfckcjr Plate Each Additional 87145-Pgyfsslo Plate Each Additional 13707-Kjprvczl Plate Each Additional 59298-Sjvfndon Plate Each Additional 78316-Jtbsoxea Plate Each Additional 21972-Isqwhquz Plate Each Additional 02/2022 19491-Ocmuqshl Plate Each Additional 10/2022 61500-YCNY SKIN LESIONS, 2 TO 4 06/13/20 24 41364-AOOW SKIN LESIONS, 2 TO 4 09/19/20 24 62495-YASB SKIN LESIONS, 2 TO 4 02/07/20 Next Appt Details Provider Name:Surinder Brar , 05/08/2025 12:15:00 PM, [address] [place], [address], Insurance Providers Payer Name Payer Address Payer Phone Subscriber Number Group Number Insured Name Patient Relationship to Insured Coverage Start Date Coverage End Date Medicare National Govt [employer] [address] [place] [address] [id number] Bryce Yarbrough Self - patient is the insured 8 [employer] [address] [place] [address] [id number] Bryce Yarbrough Self - patient is the insured Medical (General) History Medical History History ICD Code Cataracts Arthritis Gout Scarlet fever Stomach ulcer Measles Mumps Chicken pox Joint implants/screws Hypertension Prostate CAD Pain in Joints rash sleep apnea Surgical History Surgery Date(Month/Year) ankle surgery colonoscopy Gall bladder 08/28/2024 Hospitalization History Reason Date(Month/[place] [facility] [place] [facility] [place] bladder remove d 08/28/2024-
--- OUTSIDE RECORDS SUMMARY | 2025-04-07 14:57 | XMS_ITS ---
Author Organization [facility] Address [address] [place] [address] Care Team Providers Care Nozzle Operator Name Role Phone Irving Valentin MD Primary Care Provider Unavaila Tre Brewster [phone] REASON FOR VISIT reflux Encounters Encounter Location Date Provider Diagnosis [facility] [address] [place] [address] 01/29/2024 Tre Moody Plan Of Treatment No Information Progress Notes * BLAZE MEJIA MDOB:1945 (78 yo M)Acc No.[id number]:01/29/2024 Patient:?BLAZE MEJIA :1945???Age:78 Y???Sex:Male Address:[address] [place] [address] * true * Date:? Generated for Dinorah saldaña/Lester/eTransmitting on:?04/07/2025 02:57 PM EDT
--- OUTSIDE RECORDS SUMMARY | 2025-04-07 14:57 | XMS_ITS ---
[facility] Address [address] [facility] [place] [address] Care Team Providers Care Aircraft Maintenance Director Name Role Phone Irving Valentin MD Primary Care Provider Surnider Arriola Unavailable [phone] Allergies No Known Allergies REASON FOR VISIT [...] Ordered Date Performed Result Body Sit e 87423-JPRMHXK NAIL, 6 OR MORE 02/06/2025 N/A 99348-Apudxpap Plate 02/06/2025 N/A 92917-CGHL SKIN LESIONS, 2 TO 4 02/06/2025 N/A Encounters Encounter Location Date Provider Diagnosis [facility] [address] [address] 02/06/2025 Surinder Brar Atherosclerosis of greenville artery of both lower extremities, with unspecified presence of clinical manifestation I70.203 ; Tinea unguium B35.1 ; Pain in right toe(s) M79.674 ; Pain in left toe(s) M79.675 and Ingrown nail L60.0 Assessments Encounter Date Diagnosis (ICD Code) Assessment Notes Treatment Notes Treatment Clinical Notes Section Notes 02/06/2025 Atherosclerosis of greenville artery of both lower extremities, with unspecified presence of clinical manifestation (ICD-10 - I70.203) Q7(A), Q8(2B), Q9(1B,2C) 02/06/2025 Tinea unguium (ICD-10 - B35.1) 02/06/2025 Pain in right toe(s) (ICD-10 - M79.674) 02/06/2025 Pain in left toe(s) (ICD-10 - M79.675) 02/06/2025 Ingrown nail (ICD-10 - L60.0) Plan Of Treatment Pending Test Test Name Order Date 60625-QWEBBYH NAIL, 6 OR MORE 02/06/2025 29854-Eebnhyef Plate 02/06/2025 42614-HYJJ SKIN LESIONS, 2 TO 4 02/07/20 25 Next Appt Details Follow Up: prn, Reason: Provider Name:Surinder Brar , 05/08/2025 12:15:00 PM, [address] [place] [address], [phone], Procedure Notes * Category Sub-Category Detail Notes [...] was recommended for pain or discomfort - 63665, CIRCULATION: Pt was advised as to the [...] use of a nail nipper and/or dremel-type spice grinder, to a more viable healthy nail [...] to maintain effectiveness in symptomatic relief - 19067 Keratoma Treatment Parring or Cutting o f [...] instrumentation by the physician of record - 83538, Q8 Progress Notes * Bryce MEJIADOB:1945 ([age] yo M)Acc No.[id number]:02/06/2025 Progress Note Patient:?Bryce MEJIA Provider:?Surinder Brar DPM :1945???Age:79 Y???Sex:Male Melo e:02/06/2025 [facility]: [address] Pcp:Irving Valentin MD Subjective: * Chief Complaints: [...] Diagno stic Procedure:?C-Blood infection/ gall bladder removed 08/28/2024-[facility]- eye condition 12/13 * Family History:?Mother: dece ased.?Father: .?Siblings: diagnosed with Diabetic - NIDDM.? * Social History:?Tobacco Use:?Tobacco use other than smoking?Are you an other tobacco user??No ?Tobacco Control (Standard)?Tobacco use:?Nonsmoker ???Miscellaneous:?Caffeine: yes, frequency: Coffee, 1-2 cups per day. ?Children: yes. ?Exercise: yes, walking, occasional, housework, yard work,shopping. ?Marital status: . ?Occupation: Retired-, [employer]. * Medications:?TakingFolic Aci d Omeprazole aspirin baby [...] Assessment: 1.?Tinea unguium - B35.1???2 .?Atherosclerosis of greenville artery of both lower extremities, with unspecified presence of clinical manifestation - I70.203 (Primary)???Specify :Q8???Notes :Q7(A), Q8(2B), Q9(1B,2C)???3.?Pain in right toe(s) - M79.674???4.?Pain in left toe(s) - M79.675???5.?Ingrown nail - L60.0???Specify :Medial nail border,?T5??? Plan: * Treatment: 2.?Tinea unguium?Procedure: 63614-WHNXMTI NAIL, 6 OR MORE 3.?Ingrown nail?Procedure: 56900-Aruoizjj Plate * Procedures:?Debride Nail 6-10:?Nail debridement?Due to [...] use of a nail nipper and/or dremel-type spice grinder, to a more viable healthy nail [...] to maintain effectiveness in symptomatic relief - 95925.?Keratoma Treatment:?Parring or Cutting of Benign Hyperkeratotic Lesion(s)?(-56) [...] instrumentation by the physician of record - 70798, Q8.?Nail Avulsion:?Location?Medial nail border,?T5.?Anesthesia?was deferred - PT [...] was recommended for pain or discomfort - 52479, CIRCULATION: Pt was advised as to the risk of delayed or nonhealing due to circulation. Pt is to call the office with any questions, concerns, or complications.? * Procedure Codes:?26987 DEBRI DE NAIL, 6 OR MORE, Modifiers: XS 18563 Avulsion Plate, Modifiers: XS , B308535 TRIM SKIN LESIONS, 2 TO 4, Modifiers: XS , Q8 * Follow Up:?prn * Images: * Sign off status: Completed true * Provider:?Surinder Brar DPM Date:?2024 Generated for Dinorah saldaña/Lester/Julia on:?04/07/2025 02:56 PM EDT History and Physical [...]
--- OUTSIDE RECORDS SUMMARY | 2025-04-07 14:57 | XMS_ITS | Patient Health Record ---
Author Organization [facility] Address [address] [place] [address] Care Team Providers Care Watch Crystal Cutter Name Role Phone Irving Valentin MD Primary Care Provider Tre Guidry Unavailable [phone] Allergies No Known Allergies Reason For Referral [...] Problem Status W/U Status Risk Notes Problem 605261357 Encounter for screening for malignant neoplasm of colon (Z12.11) Active confirmed Problem 354666572 History of adenomatous polyp of colon (Z86.010) Active confirmed Problem 17005684 Change in bowel habits (R19.4) Active confirmed Problem Screening for malignant neoplasm of rectum (419996733) Encounter for screening for malignant neoplasm of rectum (Z12.12) Active confirmed Problem Dysphagia (74395859) Dysphagia (R13.10) Active confirmed Problem 834029453 Gastroesophageal reflux disease without esophagitis (K21.9) Active confirmed Problem 50588639 Peptic ulcer disease (K27.9) Active confirmed Problem 523784600 NSAID long-term use (Z79.1) Active confirmed Problem Diverticulosis of colon (677755080) Diverticulosis of colon (K57.30) Active confirmed Problem 032890505 Gastroesophageal reflux disease, unspecified whether esophagitis present (K21.9) Active confirmed Problem 81882669 Esophageal dysphagia (R13.19) Active confirmed Plan Of [...] Date MEDICARE OF [place] [address] [place] [address] [id number] BLAZE MEJIA Self - patient is the insured [employer] ATT[employer] CLAIMS [address] [place] [address] [id number] BLAZE MEJIA Self - patient is the insured Medical (General) History Medical History History ICD Code Small tubular adenomas remov ed in 2002 and in July 2011; he had a negative colonoscopy in 2005 with me and a negative colon[place] [address] Mast; he does have diverticulosis and internal hemorrhoids Gastric ulcer in 1993--EGD--biopsies wer e neg. for H.pylori Denies [place],DM,CVA,Lung disease,renal dise ase HTN Gout Reported bleeding duodenal ulcer in the 1970s Negative screening colonoscopy in 2016 Pruritic skin rash followed by Dr. Thomason from dermatology as of the 01/2023 OV Renal insufficiency--seeing Dr. Barnard-- 01/24/2023 Sleep apnea-using CPAP Neg.Nuclear med ETT with Dr. Atkins at [facility] summer 2022 Neg. colonoscopy 03/2023 Upper endoscopy [...]
--- OUTSIDE RECORDS SUMMARY | 2025-04-07 14:57 | XMS_ITS | Encounter Summary ---
Author Organization [facility] Address [address] [place] [address] Care Team Providers Care Sales Merchandising Specialist Name Role Phone Irving Valentin Primary Care Provider [phone] Encounter Details Date Type Department Care Team (Late st Contact Info) Description 02/11/2025 Results Follow-Up [facility] [address] [place] [phone] Fire Protection Specialist: Bg Noland MD [address] [place] [phone] Social History Tobacco Use Types Packs/Day Years [...] Description 05/12/2025 10:00 AM EDT Office Visit [facility] [address] [place] [phone] Fire Protection Specialist: Bg Noland MD [address] [place] [phone] 06/29/2025 9:30 AM EDT Office Visit [facility] 4th Floor [address] [facility], [place] [phone] Fire Protection Specialist: Bg Noland MD [address] [place] [address] documented as of this encounter Visit Diagnoses Not on filedocumented in this encounter Care Teams Sales Merchandising Specialist Relationship Specialty Start Date End Date Irving Valentin [address] [place] [address] [place] [address] PCP - General Internal Medicine 09/03/23 documented as of this encounter
--- OUTSIDE RECORDS SUMMARY | 2025-04-07 14:57 | XMS_ITS ---
Author Organization [facility] Address [address] [place] [address] Care Team Providers Care Percussion Instrument Tuner Name Role Phone Irving Valentin MD Primary Care Provider Unavaila Surinder Sierra Unavailable [phone] Encounters Encounter Location Date Provider Diagnosis [address] [address] 12/19/2024 Surinder Brar Plan Of Treatment Next Appt Details Provider Name:Surinder Brar , 05/08/2025 12:15:00 PM, [address] [place] [address], [phone], Progress Notes * Bryce MEJIADOB:1945 ([age] yo M)Acc No.[id number]:12/19/2024 Progress Note Patient:?Bryce MEJIA Provider:?Surinder Brar DPM :1945???Age:79 Y???Sex:Male Melo e:12/19/2024 Address:[address], [place] Pcp:Irving Valentin MD Subjective: * Chief Complaints: [...]
--- OUTSIDE RECORDS SUMMARY | 2025-04-07 14:57 | XMS_ITS ---
Author Organization [facility] Address [address] [place] [phone] Care Team Providers Care Manager Contract Name Role Phone Irving Valentin MD Primary Care Provider Tre Guidry [phone] Encounters Encounter Location Date Provider Diagnosis [facility] [address] [facility] [address] [place] [phone] 12/13/2023 Tre Moody Plan Of Treatment No Information Progress Notes * BLAZE MEJIA MDOB:1945 (78 yo M)Acc No.[id number]:12/13/2023 Patient:?BLAZE MEJIA :1945???Age:78 Y???Sex:Male Address:[address] [place] [address] * true * Date:? Generated for Dinorah saldaña/Lester/eTransmitting on:?04/07/2025 02:57 PM EDT
--- OUTSIDE RECORDS SUMMARY | 2025-04-07 14:57 | XMS_ITS | Encounter Summary ---
Author Organization [facility] Address [address] [place] [address] Care Team Providers Care Soubrette Name Role Phone Irving Valentin Primary Care Provider [phone] Reason for Visit * Reason Onset Date Comments Med Refill 03/23/2025 Encounter Details Date Type Department Care Team (Late st Contact Info) Description 03/23/2025 Refill [facility] 4th Floor [address] [place] [address] Sow Farm Barn Technician: Bg Noland MD [address] [place] [address] Dermal hypersensitivity reaction Social History Tobacco Use [...] Description 05/12/2025 10:00 AM EDT Office Visit [facility] 4th Floor [address] [place] [phone] Sow Farm Barn Technician: Bg Noland MD [address] [place] [phone] 06/29/2025 9:30 AM EDT Office Visit [facility] 4th Floor [address] [facility], [place] [address] Sow Farm Barn Technician: Bg Noland MD [address] [place] [phone] documented as of this encounter Visit Diagnoses Diagnosis Dermal hypersensitivity reaction documented in this encounter Care Teams Soubrette Relationship Specialty Start Date End Date Irving Valentin [address] [place] [address] [place] [address] PCP - General Internal Medicine 09/03/23 documented as of this encounter
== END 2025-04-07 14:10 | disposition home or self-care (01) ==
LOC: HO.HPS 13:45
PROVIDERS: Visit Provider Internal Medicine
DX: G47.33 Obstructive sleep apnea (adult) (pediatric) (principal); I27.20 Pulmonary hypertension, unspecified; E66.9 Obesity, unspecified
CPT/HCPCS: 99213

== ENCOUNTER → 2025-04-07 13:45 | Outpatient (BNVA) | payer MEDICARE, SELFPAY | PROVIDERS: Visit Provider Internal Medicine | DX: G47.33 Obstructive sleep apnea (adult) (pediatric) (principal); I27.20 Pulmonary hypertension, unspecified; E66.9 Obesity, unspecified; Z68.29 Body mass index [BMI] 29.0-29.9, adult; Z99.89 Dependence on other enabling machines and devices | CPT/HCPCS: 99212 ==

== ENCOUNTER 2025-08-13 12:51 | Day surgery (SDC) | payer MEDICARE, SELFPAY ==
--- OUTSIDE RECORDS SUMMARY | 2024-12-19 09:30 | XMS_ITS ---
Author Organization [facility] Address [address] [place] [address] Care Team Providers Care Scaffold Builder Name Role Phone Irving Valentin MD Primary Care Provider Unavaila Surinder Sierra Unavailable [phone] Encounters Encounter Location Date Provider Diagnosis [address] [address] 12/19/2024 Surinder Brar Plan Of Treatment Next Appt Details Provider Name:Surinder Brar , 08/14/2025 01:15:00 PM, [address] [place] [address], [phone], Progress Notes * Bryce MEJIADOB:1945 ([age] yo M)Acc No.[id number]:12/19/2024 Progress Note Patient: Bryce DRAPER Provider: Jennifer Brar DPM :1945 A ge:79 Y S ex:Male Date:12/19/2024 Address:[address], [place] Pcp:Irving Valentin MD Subjective: * Chief Complaints: [...] 0 12/19/2024 Generated for Dinorah saldaña/Lester/Julia on: 0 08/10/2025 12:56 PM EDT
--- OUTSIDE RECORDS SUMMARY | 2025-08-05 09:40 | XMS_ITS ---
Author Organization [facility] Address [address] [place] [address] Care Team Providers Care Grill Chef Name Role Phone Fara Oscar Primary Care Provider Tre Frost Unavailable [phone] Allergies No Known Allergies REASON FOR VISIT Patient presents today for dysphagia Medications Medication SIG (Take, Route, Frequency, Duration) Notes Start Date End Date Status Brimonidine Tartrate 0.2 % Ophthalmic for 25 Days Active Brimonidine Tartrate 0.2 % INSTILL 1 NETTE P IN BOTH EYE TWICE A DAY TWELVE HOURS APART Ophthalmic for 30 Days Active Carvedilol 3.125 MG Oral for 90 Days Active Methotrexate Sodium 2.5 MG Oral for 28 Days Active Omeprazole 40 MG TAKE ONE CAPSULE BY MOUTH IN THE MORNING upon awakening and take 1 capsule at 5pm or 6pm (2 capsules daily) for 30 Active Ibuprofen 200 MG 1 tablet with food o r milk as needed Orally as needed Not-Taking Furosemide 40 MG Oral for 30 A ctive Carvedilol 3.125 MG Oral for 90 Active Acetaminophen 500 MG 1 capsule as needed Orally every 6 hrs Active Aspirin 81 Active Vital Signs Temperature 98.0 degrees Fahrenheit 08/05/20 25 Blood pressure systolic 001 mm Hg 08/05/20 25 Blood pressure diastolic 01 mm Hg 025 Height 70.25 in 08/05/2025 Weight 211.2 lbs 08/05/2025 BMI 30.09 kg/m2 08/05/2025 Procedures Procedure Date Ordered Date Performed Result Body Sit e UPPER GI ENDOSCOPY BALLOOON DILATION OF ESOPH 08/05/2025 N/A Encounters Encounter Location Date Provider Diagnosis [facility] [address] [place] [address] 08/05/2025 Tre Moody Gastroesophageal ref lux disease without esophagitis K21.9 and Dysphagia R13.10 Assessments Encounter Date Diagnosis (ICD Code) Assessment Notes Treatment Notes Treatment Clinical Notes Section Notes 08/05/2025 Gastroesophageal reflux disease without esophagitis (ICD-10 - K21.9) Use the 40mg omeprazole twice a day until I see you for the upper endoscopy Overall, Antonio appears quite well from a clinical standpoint. We did review his history in regard to his swallowing and reflux in detail. I still feel there is probably a component of some esophageal dysmotility contributing to his symptoms and I did advise him to resume using omeprazole 40 mg twice a day on a regular and daily basis. I advised him that by hopefully better suppressing acid reflux that would help diminish the effect of the esophageal dysmotility. I did recommend a follow-up endoscopy given his episodes of what sounds like esophageal obstructions. I advised him that it would be important to exclude any component of an esophageal stricture that might benefit from another balloon dilation. Full consent has been taken from him for this, including risks of bleeding and perforation. The procedure will be done with monitored anesthesia care. He was given the below instructions regarding adjustment of his medication for the procedure. Depending upon the results of the endoscopy and his clinical course I advised him that we may need to repeat a barium swallow or consider esophageal motility studies to rule out any underlying primary esophageal motility problem such as achalasia. In the meantime I did advise him to eat and chew very carefully. Antonio was comfortable with this plan. Thank you again for allowing me to participate in Antonio's care. I shall continue to keep you advised of his progress. 08/05/2025 Dysphagia (ICD-10 - R13.10) Eat and chew your food slowly and carefully Overall, Antonio appears quite well from a clinical standpoint. We did review his history in regard to his swallowing and reflux in detail. I still feel there is probably a component of some esophageal dysmotility contributing to his symptoms and I did advise him to resume using omeprazole 40 mg twice a day on a regular and daily basis. I advised him that by hopefully better suppressing acid reflux that would help diminish the effect of the esophageal dysmotility. I did recommend a follow-up endoscopy given his episodes of what sounds like esophageal obstructions. I advised him that it would be important to exclude any component of an esophageal stricture that might benefit from another balloon dilation. Full consent has been taken from him for this, including risks of bleeding and perforation. The procedure will be done with monitored anesthesia care. He was given the below instructions regarding adjustment of his medication for the procedure. Depending upon the results of the endoscopy and his clinical course I advised him that we may need to repeat a barium swallow or consider esophageal motility studies to rule out any underlying primary esophageal motility problem such as achalasia. In the meantime I did advise him to eat and chew very carefully. Antonio was comfortable with this plan. Thank you again for allowing me to participate in Antonio's care. I shall continue to keep you advised of his progress. 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 I last saw Antonio in January 2024. At that time we had reviewed his upper endoscopy from 2022 in regard to his dysphagia and chronic reflux. When I saw him in January 2024 he was doing better on his omeprazole 40 mg twice a day. He did think the balloon dilation and the medication had helped his swallowing. The upper endoscopy, as well as a follow-up barium swallow, did not show any definitive obstruction or stricture. There may have been a component of some esophageal dysmotility contributing to this as well. He describes that he stopped using the omeprazole twice a day a good number of months ago and is now just taking it once a day. He reports that works fairly well in suppressing his heartburn although he does take occasional Tums. He has been having intermittent episodes of dysphagia over the past few months in which he will feel the food piling up in the esophagus and then leading to his need to regurgitate. He describes that most days his eating and swallowing are normal but he will have these episodes at least 3 or 4 times per month. He denies any anorexia, significant weight loss, abdominal pain, or nausea. He reports that his bowel movements have been fairly regular and without any sign of bleeding. He denies abdominal pain or jaundice. * ROS: G eneral/Constitutional: Change in appetite d enies. C hills d enies. F atigue d enies. O phthalmologic: Comments a ll negative. E NT: Comments a ll negative. R espiratory: hemoptysis d enies. C ough d enies. ? C ardiovascular: Chest pain d enies. O rthopnea d enies. ? G astrointestinal: Comments S evan [facility] for details. G enitourinary: Hematuria d enies. D ysuria d enies. ? M usculoskeletal: Painful joints p ain in knees and right hip--arthritis.?Weakness d enies. S kin: Itching a dmits. R shira d enies. N eurologic: Headache d enies. S eizures d enies. ? P sychiatric: Comments a ll negative. * Medical History: * Surgical History: R ight heel surgery. Squamous cell carcinoma [facility] * Hospitalization/Major Diagno stic Procedure: N o Hospitalization History. * Family History: F ather: . M other: , diagnosed with Colon cancer. S iblings: , sister, diagnosed with Colon cancer. The patient's family history is notable for his mother with ? of colon cancer at age 80. Sister had colon cancer in her 70's or 80's. No family history of liver cancer. * Social History: T obacco Use: T obacco Use/Smoking P atient is a: former smoker , How long has it been since you last smoked?: > 10 years. D rugs/Alcohol: A lcohol Screen P oints: 2, Interpretation: Negative. M iscellaneous: O ccupation: retired. N onsmoker; occasional alcohol. * Medications: T akingAcetaminophen 500 MG Capsule 1 capsule as needed Orally every 6 hrs Aspirin 81 Furosemide 40 MG Tablet Oral Carvedilol 3.125 MG Tablet Oral Omeprazole 40 MG Capsule Delayed Release TAKE ONE CAPSULE BY MOUTH IN THE MORNING upon awakening and take 1 capsule at 5pm or 6pm (2 capsules daily) Brimonidine Tartrate 0.2 % Solution Ophthalmic Carvedilol 3.125 MG Tablet Oral Methotrexate Sodium 2.5 MG Tablet Oral Brimonidine Tartrate 0.2 % Solution INSTILL 1 DROP IN BOTH EYE TWICE A DAY TWELVE HOURS APART Ophthalmic Taking Acetaminophen 500 MG Capsule 1 capsule as needed Orally every 6 hrs Taking Aspirin 81 Taking Furosemide 40 MG Tablet Oral Taking Carvedilol 3.125 MG Tablet Oral Taking Omeprazole 40 MG Capsule Delayed Release TAKE ONE CAPSULE BY MOUTH IN THE MORNING upon awakening and take 1 capsule at 5pm or 6pm (2 capsules daily) Taking Brimonidine Tartrate 0.2 % Solution Ophthalmic Taking Carvedilol 3.125 MG Tablet Oral Taking Methotrexate Sodium 2.5 MG Tablet Oral Taking Brimonidine Tartrate 0.2 % Solution INSTILL 1 DROP IN BOTH EYE TWICE A DAY TWELVE HOURS APART Ophthalmic Not-Taking/PRNIbuprofen 200 MG Tablet 1 tablet with food or milk as needed Orally as needed Not-Taking/PRN Ibuprofen 200 MG Tablet 1 tablet with food or milk as needed Orally as needed DiscontinuedAllopurinol 300 MG Tablet 1/2 tablet Orally Once a day Tamsulosin HCl 0.4 MG Capsule Oral Medication List reviewed and reconciled with the patientDiscontinued Allopurinol 300 MG Tablet 1/2 tablet Orally Once a day Discontinued Tamsulosin HCl 0.4 MG Capsule Oral Medication List reviewed and reconciled with the patient * Allergies: N .K.D.A.yes[Allergies Verified] Objective: * Vitals: W t:211.2lbs, Ht: 70.25 in, BMI:30.09Index, BP:001/01mm Hg, Temp:98.0, Wt-k.8. * Examination: G eneral Examination: GENERAL APPEARANCE: p ammyasant, well nourished, well developed, in no acute distress. EYES: s clera non-icteric. ORAL CAVITY: m ucosa moist. NECK/THYROID: n o cervical lymphadenopathy, neck supple.? SKIN: n onjaundiced, no spider angiomata. HEART: S 1, S2 normal. LUNGS: c lear to auscultation bilaterally. ABDOMEN: n ormal bowel sounds, no guarding or rigidity, no guarding or rigidity, no masses palpable, soft, nontender, nondistended. EXTREMITIES: n o edema. NEUROLOGIC: a lert and oriented. Assessment: * Assessment: 1. D ysphagia - R13.10 (Primary) 2 . G astroesophageal reflux disease without esophagitis - K21.9 Overall, Antonio appears quite w ell from a clinical standpoint. We did review his history in regard to his swallowing and reflux in detail. I still feel there is probably a component of some esophageal dysmotility contributing to his symptoms and I did advise him to resume using omeprazole 40 mg twice a day on a regular and daily basis. I advised him that by hopefully better suppressing acid reflux that would help diminish the effect of the esophageal dysmotility. I did recommend a follow-up endoscopy given his episodes of what sounds like esophageal obstructions. I advised him that it would b e important to exclude any component of an esophageal stricture that might benefit from another balloon dilation. Full consent has been taken from him for this, including risks of bleeding and perforation. The procedure will be done with monitored anesthesia care. He was given the below instructions regarding adjustment of his medication for the procedure. Depending upon the results of the endoscopy and his clinical course I advised him that we may need to repeat a barium swallow or consider esophageal motility studies to rule out any underlying primary esophageal motility problem such as achalasia. In the meantime I did advise him to eat and chew very carefully. Antonio was comfortable with this plan. Thank you again for allowing me to participate in Antonio's care. I shall continue to keep you advised of his progress. Plan: * Treatment: Notes: Eat and chew your food slowly and carefully??2.?Gastroesophageal reflux disease without esophagitis?Procedure: UPPER GI ENDOSCOPY BALLOOON DILATION OF ESOPH* with MAC.Stop aspirin for 1 week before the proceduresched for 08/13/25 at 2:00 pm Notes: Use the 40mg omeprazole twice a day until I see you for the upper endoscopy?? * Procedure Codes: 4 3219 ESOPHAGUS [id number] TOBACCO [id number] BP SCR NOT PRFRM REC REASON NOS * Preventive Medicine: Counseling: C are goal follow-up plan: A cesar Normal BMI Follow-up D ietary management education, guidance, and counseling, B WA management provided Y es. Screenings: F all Risk Screening F all Risk Assessment: N o falls in the past year, S creening: N o falls in the past year, A ssessment: N ot performed, no reason specified, P kiana of Care: N ot documented, no reason specified. * Follow Up: p rn * * Sign off status: Completed true * Provider: Chris Moody MD Date: 0 08/05/2025 Generated for Dinorah saldaña/Lester/Iramitting on: 0 08/10/2025 12:56 PM EDT History and Physical Notes * HPI (History of Present Illness) Category Sub-Category Detail Notes Category Not es incontinence I saw Antonio in follow-up today in regard to his chronic gastroesophageal reflux and intermittent dysphagia. I last saw Antonio in January 2024. At that time we had reviewed his upper endoscopy from 2022 in regard to his dysphagia and chronic reflux. When I saw him in January 2024 he was doing better on his omeprazole 40 mg twice a day. He did think the balloon dilation and the medication had helped his swallowing. The upper endoscopy, as well as a follow-up barium swallow, did not show any definitive obstruction or stricture. There may have been a component of some esophageal dysmotility contributing to this as well. He describes that he stopped using the omeprazole twice a day a good number of months ago and is now just taking it once a day. He reports that works fairly well in suppressing his heartburn although he does take occasional Tums. He has been having intermittent episodes of dysphagia over the past few months in which he will feel the food piling up in the esophagus and then leading to his need to regurgitate. He describes that most days his eating and swallowing are normal but he will have these episodes at least 3 or 4 times per month. He denies any anorexia, significant weight loss, abdominal pain, or nausea. He reports that his bowel movements have been fairly regular and without any sign of bleeding. He denies abdominal pain or jaundice. Examination Category Sub-Category Detail Notes Category Not [...]
--- OUTSIDE RECORDS SUMMARY | 2025-08-10 12:56 | XMS_ITS | Encounter Summary ---
Author Organization [facility] Address [address] [place] [address] Care Team Providers Care Lumber Piler Operator Name Role Phone Irving Valentin Primary Care Provider [phone] Encounter Details Date Type Department Care Team (Late st Contact Info) Description 06/12/2025 [employer] Message [facility] [address] [address] Mychart, Generic Provider [address] [place] [phone] Jennifer Lu's number Social History Tobacco Use Types Packs/Day Years [...] Care Team (Late st Contact Info) Description 08/18/2025 10:00 AM EDT Office Visit [facility] 4th Floor [address] [place] [address] History Card Clerk: Bg Noland MD [address] [place] [id number] documented as of this encounter Visit Diagnoses Not on filedocumented in this encounter Care Teams Lumber Piler Operator Relationship Specialty Start Date End Date Irving Valentin [address] [place] [address] [place] [address] PCP - General Internal Medicine 09/03/23 documented as of this encounter
--- OUTSIDE RECORDS SUMMARY | 2025-08-10 12:56 | XMS_ITS | Clinical Summary ---
Author Organization [facility] Address [address] [place] [address] Phone Care Team Providers Care Leaf Conditioner Helper Name Role Phone Irving Valentin MD Primary Care Provider Allergies No known active allergies Medications allopurinol [...] of 2 - PCV) 1964 Influenza Vaccine (#1) 2025 Hepatitis B Vaccine Aged Out No longe r eligible based on patient's age to complete this topic Insurance Medicare [facility] Medicare [facility] Care Teams Leaf Conditioner Helper Relationship Specialty Start Date End Date Irving Valentin MD [facility] [address] [place], [place] PCP - General Internal Medicine 12/19/22
--- OUTSIDE RECORDS SUMMARY | 2025-08-10 12:56 | XMS_ITS | Clinical Summary ---
Author Organization [facility] Address [address] [place] [address] Care Team Providers Care Air Route Controller Name Role Phone Irving Valentin Primary Care Provider [phone] Allergies Active Allergy Reactions Criticality Noted Date [...] morning for 30 day(s) 09/27/20 23 Active triamcinolone acetonide (KENALOG) 0.1% ointmentIndications: Dermatitis Apply to rash twice daily as needed 454 g 3 11/06/20 23 Active Additional Information Patient not taking.Reported on 05/12/2025 triamcinolone acetonide (KENALOG) 0.1% creamIndications:Stefano matitis Apply to rash twice daily until flat and smooth. Do not use on face, in genital area or in skin folds. 454 g 11/14/20 23 Active Additional Information Patient not taking.Reported on 05/12/2025 fexofenadine (SIMONE) 180 mg tablet Take 180 mg by mouth once a day. Active folic acid (FOLVITE) 1 mg tabletIndications:De rmal hypersensitivity reaction Take ONE tablet daily on days when you DO NOT take methotrexate FOR 6 DAYS A WEEK 24 tablet 04/22/20 25 Active brimonidine (ALPHAGAN) 0.2% ophthalmic solution INSTILL 1 DROP IN BOTH EYE TWICE A DAY TWELVE HOURS APART Ophthalmic for 30 Days Active dupilumab (Dupixent Pen) 300 mg/2 mL pen injectionIndications :Other eczema Loading Dose:Inject 4 mL (600 mg total) under the skin once for 1 dose. 4 mL 05/12/20 25 Active dupilumab (Dupixent Pen) 300 mg/2 mL pen injectionIndications :Other eczema Maintenance Dose: Inject 2 mL (300 mg total) under the skin every 14 days starting on day 15. 4 mL 5 05/12/20 25 Active clobetasoL (TEMOVATE) 0.05% ointmentIndications: Prurigo Apply to excoriated area on front of scalp twice daily under bandaid until resolved or next appt. 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 DO NOT APPLY UNDER BAND AID OCCLUSION. 40 g 05/27/20 25 Active Active Problems Problem Noted Date Diagnosed Date Change in bowel habits 11/23/2023 Diverticulosis of colon 11/23/2023 Dysphagia 11/23/2023 Esophageal dysphagia 11/23/2023 Gastroesophageal reflux disease 11/23/2023 Ingrowing nail 11/23/2023 Peptic ulcer disease 11/23/2023 Tinea unguium 11/23/2023 Hypertension 01/24/2023 Stage 3a chronic kidney disease 01/24/2023 Encounters Date Type Department Care Team Description 07/03/2025 myChart Message [facility] [address] [place] [address] Mychart, Generic Provider Financial Assistance 06/12/2025 myChart Message [facility] [address] [place] [address] Mychart, Generic Provider corrected number 06/12/2025 myChart Message [facility] [address] [place] [address] Mychart, Generic Provider Jennifer Lu's number 06/10/2025 myChart Message [facility] 4th Floor [address] [place] [address] Music Orchestrator: Bg Noland MD Dupixant follow up 05/27/2025 Orders Only [facility] [address] [place] [phone] Music Orchestrator: Bg Noland MD 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); Prurigo 05/20/2025 Results Follow-Up [facility] [address] [place] [phone] Music Orchestrator: Bg Noland MD 05/12/2025 10:00 AM EDT Office Visit [facility] [address] [place] [phone] Music Orchestrator: Bg Noland MD Other eczema (Primary Dx); Neoplasm of uncertain behavior 05/12/2025 Telephone [facility] [address] [place] [phone] Music Orchestrator: Mya Alicia CPhT Prior Authorization (Dupixent 300mg/2ml Pen ); Financial Assistance (Dupixent 300mg/2ml Pen ) from Last 3 Months Immunizations Immunization Administration Dates Next Due Covid-19, Pfizer, mRNA, Schoolcraft valent, PF 30 mcg/0.3 mL dose (for ages 12 and older) 09/12/2021 Influenza Split 10/13/2015 Influenza, High Dose Seasona l, Preservative Free (FLUZONE HIGH-DOSE) 07/25/2019,08/29/2017,09/13/2016 Influenza, High Dose Seasona l, Quadrivalent PF 09/04/2022,08/19/2021,08/05/2020 Influenza, Injectable, Quadr ivalent, Preservative Free 09/11/2023 Influenza, Trivalent, Adjuva nted, PF (FLUAD) 08/28/2018 Influenza, Trivalent, MDV, Injectable 09/04/2022 ,08/22/2010 [...] 08/18/2025 10:00 AM EDT Office Visit [facility] 4th Floor [address] [place] [address], [place] [phone] Music Orchestrator: Bg Noland MD [address] [place] [phone] Health Maintenance Due Date Last Done Comments Medicare AWV 1946 Zoster Vaccines (1 of 2) 1993 Pneumococcal Vaccine: 50+ Years (2 of 2 - PCV) 01/05/2010 01/05/2009 RSV Vaccine (60+ years old and patients) (1 - 1-dose 75+ series) 2018 Alcohol/Substance Use Screening 11/19/2024 Depression Screening and Follow-Up 11/19/2024 Health Care Proxy Review 11/19/2024 Social Drivers of Health Annual Screening 11/19/2024 COVID-19 Vaccine (3 - season) 2025 09/12/2021, 01/20/2021 Influenza Vaccine (#1) 2025 , 08/30/2024, 09/11/2023, Additional history exists Basic Metabolic Panel 02/10/2026 02/10/2025 , 10/14/2024, 02/18/2016, Additional history exists Fall Risk Screening 05/12/2026 05/12/2025 DTaP,Tdap,and Td Vaccines (2 - Td or Tdap) 05/26/2031 05/26/2021, 05/03/2018 Tobacco Screening 11/19/2042 05/12/2025 Hepatitis B Vaccines Aged Out No long er eligible based on patient's age to complete this topic Procedures * Due to [facility] law, this organization might not be sharing negative HIV tests. Procedure Name Priority Date/Time Associated Diagnosis Comments TISSUE EXAM Routine 05/12/2025 10:52 AM EDT Neoplasm of uncertain behavior COMPREHENSIVE METABOLIC PANEL Routine 02/10/2025 12:24 PM EDT High risk medication use from Last 3 Months or Most Recently Relevant to Health Maintenance Results * Due to [place] [employer] law, this organization might not be sharing negative HIV tests. 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 Comment: Multiple levels were examined. No significant atypia is seen in examined sections. Specimen #2 - Skin, Right Parietal Scalp, Shave Biopsy: - SQUAMOUS CELL CARCINOMA IN SITU WITH FOLLICULAR EXTENSION, EXTENDING TO THE LATERAL TISSUE EDGES. - Sebaceous hyperplasia also present. Note: Multiple levels were examined. [facility] 05/13/2025 10:08 AM EDT [facility] at 1008 EDT Clinical History Specimen 1: Eroded plaque favor SCC Eroded plaque favor SCC Specimen 2: Favor SCC Favor SCC [facility] 05/13/2025 10:08 AM EDT [facility] [employer] [facility] Gross Description 1. Skin, Central frontal scalp Received in formalin, labeled with the patient's name, date of , medical record number, and central frontal scalp , is a max-pink to yellow-brown slightly thickened skin shave (1.2 x 0.8 x 0.2 cm). The deep margin is inked black, and the specimen is bisected, and entirely submitted in cassette 1A. 2. Skin, Right parietal scalp Received in formalin, labeled with the patient's name, date of , medical record number, and right parietal scalp , is a max-pink, hairbearing, slightly thickened skin shave (1.1 x 0.9 x 0.3 cm). The deep margin is inked black, and the specimen is trisected, and entirely submitted in cassette 2A. [facility] 05/13/2025 10:08 AM EDT [facility] [employer] [facility] Gross Description User Grossing complete by Manisha Nunez on 05/12/2025 3:19 PM [facility]UAL 05/13/2025 10:08 AM EDT [facility] [employer] [facility] Embedded Images [facility] 05/13/2025 10:08 AM EDT [facility] [employer] [facility] Resulting Agency Case was signed out at [facility], Department of Pathology, [employer] 3 CLIA [id number] [facility] 05/13/2025 10:08 AM EDT [facility] [employer] [facility] Report Header Surgical Pathology Report Case: [id number] Authorizing Provider: Bg Clinton MD Collected: 05/12/2025 1052 Ordering Location: [facility] Received: 05/12/2025 1143 [facility] 4th Floor Pathologist: Brock Lynch DO Specimens: 1) - Skin, Central frontal scalp 2) - Skin, Right parietal scalp 05/13/2025 10:08 AM EDT [facility] Skin Specimen from skin / Unknown 05/12/2025 10:52 AM EDT 05/12/2025 11:43 AM EDT Specimen from skin (specimen) Specimen from skin / Unknown 05/12/2025 10:53 AM EDT 05/12/2025 11:43 AM EDT us Bg Clinton MD LAB PATHOLOGY/CYTOLOGY ORDERAB LES Final Result [facility] [address] [place] [address], * (ABNORMAL) Comprehensive Metabolic Panel (02/10/2025 12:24 PM EDT) NA 142 135 - 145 mmol/L 02/10/2025 2:46 PM EDT [facility] K 4.4 3.5 - 5.3 mmol/L 02/10/2025 2:46 PM EDT [facility] Cl 104 98 - 107 mmol/L 02/10/2025 2:46 PM EDT [facility] CO2 27 22 - 32 mmol/L 02/10/2025 2:46 PM EDT [facility] Anion Gap 11 5 - 15 [facility] 02/10/2025 2:46 PM EDT [facility] Glucose 86 65 - 99 mg/dL 02/10/2025 2:46 PM EDT [facility] Creatinine 1.15 0.60 - 1.30 mg/dL 02/10/2025 2:46 PM EDT [facility] Calcium 10.0 8.6 - 10.5 mg/dL 02/10/2025 2:46 PM EDT [facility] Total Protein 7.0 6.0 - 8.0 g/dL 02/10/2025 2:46 PM EDT [facility] Albumin 4.3 3.5 - 5.2 g/dL 02/10/2025 2:46 PM EDT [facility] Bilirubin, Total 0.7 0.2 - 1.2 mg/dL 02/10/2025 2:46 PM EDT [facility] Alkaline Phosphatase 85 35 - 129 U/L 02/10/2025 2:46 PM EDT [employer] AST 25 10 - 40 U/L 02/10/2025 2:46 PM EDT [facility] ALT 22 10 - 40 U/L 02/10/2025 2:46 PM EDT [facility] BUN 28(H) 7 - 23 mg/dL 02/10/2025 2:46 PM EDT [facility] eGFR 64 >=60 mL/min/1. 73m2 [facility] MANUAL 02/10/2025 2:46 PM EDT [facility] Comment:The estimated glomer ular [...] Globulin, Total 2.7 2.1 - 4.2 g/dL [facility] MANUAL 02/10/2025 2:46 PM EDT [facility] A/G Ratio 1.6 1.5 - 3.0 [facility] MANUAL 02/10/2025 2:46 PM T [facility] Blood Structure of peripheral vein / Unknown Venipuncture / Unknown 02/10/2025 12:24 PM EDT 02/10/2025 12:24 PM EDT us Bg Clinton MD LAB BLOOD ORDERABLES Final Res ult [facility] [address] [place] [address], from Last 3 Months or Most Recently Relevant to Health Maintenance Insurance [facility] Care Teams Air Route Controller Relationship Specialty Start Date End Date Irving Valentin [address] [facility] [place] [address] PCP - General Internal Medicine 09/03/23
--- OUTSIDE RECORDS SUMMARY | 2025-08-10 12:56 | XMS_ITS | Encounter Summary ---
Author Organization [facility] Address [address] [place] [address] Care Team Providers Care Neurological Physiotherapist Name Role Phone Irving Valentin Primary Care Provider [phone] Encounter Details Date Type Department Care Team (Late st Contact Info) Description 07/03/2025 Whistlehart Message [facility] [address] [address] Mychart, Generic Provider [address] [place], [place] [id number] Financial Assistance Social History Tobacco Use Types Packs/Day Years [...] Description 08/18/2025 10:00 AM EDT Office Visit [facility] 4th Floor [address] [facility], [place] [phone] Geospatial Information Scientist: Bg Noland MD [address] [place] [phone] documented as of this encounter Visit Diagnoses Not on filedocumented in this encounter Care Teams Neurological Physiotherapist Relationship Specialty Start Date End Date Irving Valentin [address] [place] [address] [place] [address] PCP - General Internal Medicine 09/03/23 documented as of this encounter
--- OUTSIDE RECORDS SUMMARY | 2025-08-10 12:56 | XMS_ITS | Encounter Summary ---
Author Organization [facility] Address [address] [place] [address] Care Team Providers Care Legal Executive Assistant Name Role Phone Irving Valentin Primary Care Provider [phone] Encounter Details Date Type Department Care Team (Late st Contact Info) Description 06/12/2025 Entrecardhart Message [facility] [address] [address] Mychart, Generic Provider [address] [place] [address] [phone] corrected number Social History Tobacco Use Types Packs/Day [...] Description 08/18/2025 10:00 AM EDT Office Visit [facility] 4th Floor [address] [facility], [place] [address] Junior Buyer: Bg Noland MD [address] [place] [phone] documented as of this encounter Visit Diagnoses Not on filedocumented in this encounter Care Teams Legal Executive Assistant Relationship Specialty Start Date End Date Irving Valentin [address] [place] [address] [place] [address] PCP - General Internal Medicine 09/03/23 documented as of this encounter
--- OUTSIDE RECORDS SUMMARY | 2025-08-10 12:57 | XMS_ITS | Patient Health Record ---
Author Organization [facility] Address [address] [place] [address] Care Team Providers Care Sugar Sampler Name Role Phone Fara Oscar Primary Care Provider Tre Frost Unavailable [phone] Allergies No Known Allergies Reason For Referral No Information Medications Medication SIG (Take, Route, Frequency, Duration) Notes Start Date End Date Status Brimonidine Tartrate 0.2 % Ophthalmic for 25 Days Active Omeprazole 40 MG TAKE ONE [...] as needed Orally every 6 hrs Active Brimonidine Tartrate 0.2 % INSTILL 1 NETTE P IN BOTH EYE TWICE A DAY TWELVE HOURS APART Ophthalmic for 30 Days Active Aspirin 81 Active Carvedilol 3.125 MG Oral for 90 Days Active Methotrexate Sodium 2.5 MG Oral for 28 Days Active Immunizations Vaccine Route Administration Date Status Comme nts Flu vaccine no Preserv 3 and > Unknown 10/13/2015 Admin istered Influenza Unknown 09/04/2022 Administered Influenza Unknown 08/05/2024 Administered Problems Problem Type SNOMED Code ICD Code Onset Dates Problem Status W/U Status Risk Notes Problem 159846532 Encounter for screening for malignant neoplasm of colon (Z12.11) Active confirmed Problem 798378100 History of adenomatous polyp of colon (Z86.010) Active confirmed Problem 29943577 Change in bowel habits (R19.4) Active confirmed Problem Screening for malignant neoplasm of rectum (138412079) Encounter for screening for malignant neoplasm of rectum (Z12.12) Active confirmed Problem Dysphagia (00112167) Dysphagia (R13.10) Active confirmed Problem 198003459 Gastroesophageal reflux disease without esophagitis (K21.9) Active confirmed Problem 73905946 Peptic ulcer disease (K27.9) Active confirmed Problem 718903398 NSAID long-term use (Z79.1) Active confirmed Problem Diverticulosis of colon (338413799) Diverticulosis of colon (K57.30) Active confirmed Problem 693660127 Gastroesophageal reflux disease, unspecified whether esophagitis present (K21.9) Active confirmed Problem 48779168 Esophageal dysphagia (R13.19) Active confirmed Vital Signs Temperature 98.0 degrees Fahrenheit 08/05/2025 Blood pressure diastolic 01 mm Hg 08/05/2025 Height 70.25 in 08/05/2025 Blood pressure systolic 001 mm Hg 08/05/2025 Weight 211.2 lbs 08/05/2025 BMI 30.09 kg/m2 08/05/2025 Procedures Procedure Date Ordered Date Performed Result Body Sit e UPPER GI ENDOSCOPY BALLOOON DILATION OF ESOPH 08/05/2025 N/A Encounters Encounter Location Date Provider Diagnosis [facility] [address] [place] [phone] 08/05/2025 Tre Moody Gastroesophageal ref lux disease without esophagitis K21.9 and Dysphagia R13.10 [facility] [address] [place] [phone] 08/04/2025 Tre Moody Assessments Encounter Date Diagnosis (ICD Code) Assessment Notes Treatment Notes Treatment Clinical Notes Section Notes 08/05/2025 Dysphagia (ICD-10 - R13.10) Eat and [...] keep you advised of his progress. 08/05/2025 Gastroesophageal reflux disease without esophagitis (ICD-10 [...] advised of his progress. Plan Of Treatment Pending Test Test Name Order Date UPPER GI ENDOSCOPY BALLOOON DILATION OF ESOPH 08/05/2025 CELIAC PANEL #10 01/23/2023 XR BARIUM SWALLOW-ESOPHAGUS 11/28/2023 Future Test Test Name Order Date COLONOSCOPY 09/05/2016 COLONOSCOPY 01/23/2023 UPPER GI ENDOSCOPY BALLOOON DILATION OF ESOPH 09/27/2023 Next Appt Details Provider Name:Tre Moody , 08/13/2025 02:00:00 PM, [address] [place] [address] , [place], [place], [phone], Insurance Providers Payer Name Payer Address Payer Phone Subscriber Number Group Number Insured Name Patient Relationship to Insured Coverage Start Date Coverage End Date MEDICARE [place] [address] [place] [address] [id number] BLAEZ MEJIA Self - patient is the insured [employer] ATT[employer] CLAIMS [address] [place] [phone] [id number] BLAZE MEJIA Self - patient is the insured Medical (General) History Medical History History ICD Code Small tubular adenomas remov ed in 2002 and in July 2011; he had a negative colonoscopy in 2005 with me and a [place] colon[place] [address] Mast; he does have diverticulosis and internal hemorrhoids Gastric ulcer in 1993- EGD- biopsies wer e neg. for H.pylori Denies RI,DM,CVA,Lung disease,renal dise ase HTN Gout Reported bleeding duodenal ulcer in the Negative screening colonoscopy in 2016 Pruritic skin rash followed by Dr. Thomason from dermatology as of the 01/2023 OV Renal insufficiency- seeing Dr. Barnard- 01/24/2023 Sleep apnea-using CPAP Neg.Nuclear med ETT with Dr. Atkins at [facility] summer 2022 Neg. colonoscopy 03/2023 Upper endoscopy [...] small Zenker's diverticulum and some esophageal dysmotility Glaucoma Surgical History Surgery Date(Month/Year) CCY Squamous cell carcinoma Right heel surgery.
--- OUTSIDE RECORDS SUMMARY | 2025-08-10 12:57 | XMS_ITS | Patient Health Record ---
Author Organization [facility] Address [address] [facility] [place] [address] Care Team Providers Care Facility Maintenance Worker Name Role Phone Homero BUCK, Irving Primary Care Provider Surinder Arriola Unavailable [phone] Allergies No Known Allergies Reason For Referral No Information Medications Medication SIG (Take, Route, Frequency, Duration) Notes Start Date End Date Status Methotrexate Sodium 2.5 MG Oral; Duration: 28 Days Acti ve Furosemide Active Atorvastatin Calcium 40 MG Orally Not-Taking Omeprazole Active Rosuvastatin Calcium Not-Taking Folic Acid Active Ciclopirox Olamine 0.77 % 1 application to affected area Externally Twice a day; Duration: 30 days Not-Taking Carvedilol Active Brimonidine Tartrate 0.2 % INSTILL 1 DROP IN BOTH EYE TWICE A DAY TWELVE HOURS APART Ophthalmic; Duration: 30 Days Active aspirin baby Active Flomax Not-Taking Tamsulosin HCl 0.4 MG 1 capsule Orally O nce a day Not-Taking Allopurinol 150mg Orally No t-Taking Lisinopril-hydroCHLOROthi azide Not-Taking Lisinopril 20 MG Orally Not -Taking Immunizations Vaccine Route Administration Date Status Comme nts Influenza Unknown 09/19/2024 Administered COVID-19 Pfizer BioNTech Vaccine Unknown 09/22/2021 Administered [...] Problem Status W/U Status Risk Notes Problem Bilateral atherosclerosis of arteries of lower limbs (disorder) ([id number] ) Atherosclerosis of [place] artery of both lower extremities, with unspecified presence of clinical manifestation (I70.203) Active confirmed Q7(A), Q8(2B), Q9(1B,2 C) Vital Signs Blood pressure diastolic 80 mm Hg 05/08/2025 Height 5 ft 11 in in 05/08/2025 Blood pressure systolic 120 mm Hg 05/08/2025 Weight 205 lbs 05/08/2025 BMI 28.59 kg/m2 05/08/2025 Procedures Procedure Date Ordered Date Performed Result Body Sit e 35550-UCUBLGA NAIL, 6 OR MORE 09/19/2024 N/A 82856-Kjdewola Plate 09/19/2024 N/A 61452-MCWY SKIN LESIONS, 2 TO 4 09/19/2024 N/A 16150-UXZXZHI NAIL, 6 OR MORE 02/06/2025 N/A 43436-Faawkbvt Plate 02/06/2025 N/A 11143-MGMJ SKIN LESIONS, 2 TO 4 02/06/2025 N/A 63827-LJNYGWY NAIL, 6 OR MORE 05/08/2025 N/A 16867-Rgcqbtpd Plate 05/08/2025 N/A 26568-OLVZ SKIN LESIONS, 2 TO 4 05/08/2025 N/A Encounters Encounter [facility] Date [facility] [address] 09/19/2024 Surinder Brar Atherosclerosis of [place] artery of both lower extremities, with unspecified presence of clinical manifestation I70.203 ; Tinea unguium B35.1 ; Pain in right toe(s) M79.674 ; Pain in left toe(s) M79.675 and Ingrown nail L60.[address] [address] 02/06/2025 Surinder Brar Atherosclerosis of [place] artery of both lower extremities, with unspecified presence of clinical manifestation I70.203 ; Tinea unguium B35.1 ; Pain in right toe(s) M79.674 ; Pain in left toe(s) M79.675 and Ingrown nail L60.[address] [address] 05/08/2025 Surinder Brar Atherosclerosis of [place] artery of both lower extremities, with unspecified presence of clinical manifestation I70.203 ; Tinea unguium B35.1 ; Pain in right toe(s) M79.674 ; Pain in left toe(s) M79.675 and Ingrown nail L60.[address] [address] 12/15/2024 Surinder Brar Assessments Encounter Date Diagnosis (ICD Code) Assessment Notes Treatment Notes Treatment Clinical Notes Section Notes 09/19/2024 Tinea unguium (ICD-10 - B35.1) 09/19/2024 Atherosclerosis of [place] artery of both lower extremities, with unspecified presence of clinical manifestation (ICD-10 - I70.203) 02/06/2025 Tinea unguium (ICD-10 - B35.1) 02/06/2025 Atherosclerosis of [place] artery of both lower extremities, with unspecified presence of clinical manifestation (ICD-10 - I70.203) Q7(A), Q8(2B), Q9(1B,2C) 05/08/2025 Tinea unguium (ICD-10 - B35.1) 05/08/2025 Atherosclerosis of [place] artery of both lower extremities, with unspecified presence of clinical manifestation (ICD-10 - I70.203) Q7(A), Q8(2B), Q9(1B,2C) 05/08/2025 Pain in right toe(s) (ICD-10 - M79.674) 02/06/2025 Pain in right toe(s) (ICD-10 - M79.674) 09/19/2024 Pain in right toe(s) (ICD-10 - M79.674) 09/19/2024 Pain in left toe(s) (ICD-10 - M79.675) 02/06/2025 Pain in left toe(s) (ICD-10 - M79.675) 05/08/2025 Pain in left toe(s) (ICD-10 - M79.675) 02/06/2025 Ingrown nail (ICD-10 - L60.0) 09/19/2024 Ingrown nail (ICD-10 - L60.0) 05/08/2025 Ingrown nail (ICD-10 - L60.0) Plan Of Treatment Pending Test Test Name Order Date 44866-OYJDDCA NAIL, 6 OR MORE 02/23/2017 43220-ZIOXQSS NAIL, 6 OR MORE 06/01/2017 96223-RBUPBNM NAIL, 6 OR MORE 08/31/2017 18875-VYSTMSH NAIL, 6 OR MORE 11/23/2017 11497-RXERGBA NAIL, 6 OR MORE 02/22/2018 85905-JRFCWHY NAIL, 6 OR MORE 05/24/2018 95194-NPUJHCX NAIL, 6 OR MORE 08/23/2018 73848-MCWEUSP NAIL, 6 OR MORE 12/03/2018 15632-NYTRZQY NAIL, 6 OR MORE 03/07/2019 52315-CLSSOBD NAIL, 6 OR MORE 06/13/2019 39361-LBQLQNK NAIL, 6 OR MORE 10/03/2019 50323-XDNQCWV NAIL, 6 OR MORE 01/02/2020 82280-PWHFJFX NAIL, 6 OR MORE 04/09/2020 20630-ODGEJUS NAIL, 6 OR MORE 07/02/2020 89570-UKELCLK NAIL, 6 OR MORE 10/08/2020 63542-GKRVHNI NAIL, 6 OR MORE 01/07/2021 89351-AJQWGWN NAIL, 6 OR MORE 05/10/2021 62722-PGWVMFN NAIL, 6 OR MORE 08/09/2021 76337-VZXPYLB NAIL, 6 OR MORE 11/22/2021 44070-DDNJCXT NAIL, 6 OR MORE 02/28/2022 56846-MFXGRMR NAIL, 6 OR MORE 07/25/2022 44566-FMXUXPF NAIL, 6 OR MORE 11/03/2022 35080-YMARIRE NAIL, 6 OR MORE 02/09/2023 52027-GTXMQAG NAIL, 6 OR MORE 05/08/2023 00900-QQEUOWQ NAIL, 6 OR MORE 08/24/2023 77244-GIJYSBC NAIL, 6 OR MORE 12/11/2023 02994-PEFTWJB NAIL, 6 OR MORE 03/14/2024 05463-JTZKZDH NAIL, OR MORE 06/13/2024 93980-QQMJOZY NAIL, 6 OR MORE 09/19/2024 26579-VIOMNTJ NAIL, 6 OR MORE 02/06/2025 08095-BQMZADS NAIL, 6 OR MORE 05/08/2025 33076-Osqfavly Plate 05/08/2025 11761-Brmofrtj Plate 02/06/2025 79515-Rnujylpj Plate 09/19/2024 23282-Snxvdvcv Plate 06/13/2024 88839-Sxfcwsfs Plate 03/14/2024 03018-Vbnzgytl Plate 12/11/2023 79269-Hfyarywx Plate 08/24/2023 72353-Wktyxjsw Plate 05/08/2023 03960-Bgrzdkfp Plate 02/09/2023 59917-Aumjrdsy Plate 11/03/2022 07608-Gagvxahm Plate 07/25/2022 99606-Lgeweycg Plate 02/28/2022 65621-Vasgnqmt Plate 11/22/2021 47915-Msxuojpz Plate 08/09/2021 85350-Ycuhlzxq Plate 05/10/2021 15294-Joacgilk Plate 01/07/2021 15270-Emyyvvkj Plate 10/08/2020 88108-Qufmyagk Plate 07/02/2020 02828-Vuhkptoe Plate 04/09/2020 25389-Wnzqcbvb Plate 01/02/2020 21474-Pvvtcuvd Plate 10/03/2019 16524-Insqyanj Plate 06/13/2019 56901-Yobqvyrr Plate 08/23/2018 10140-Xjjwqoti Plate 12/03/2018 16219-Uuyyojxk Plate 03/07/2019 65748-Rzmufiqt Plate 02/22/2018 41913-Kqaegrgj Plate 05/24/2018 81449-Zyixkscl Plate 08/31/2017 65981-Qjkewetx Plate 11/23/2017 04633-Rmktpdul Plate Each Additional 04/2018 57794-Ziezzzrv Plate Each Additional 03/2018 03103-Zkblytcq Plate Each Additional 02660-Nnsuwbac Plate Each Additional 04/2018 22765-Jbxcxmsu Plate Each Additional 99886-Dshpkioe Plate Each Additional 03/2018 84427-Vrqwvvba Plate Each Additional 79585-Pmzrmpkk Plate Each Additional 68665-Tpcjbcmo Plate Each Additional 39772-Ymeigavo Plate Each Additional 07208-Foteddqj Plate Each Additional 70680-Nhpnfhbc Plate Each Additional 66232-Aucergzl Plate Each Additional 76209-Jgnojptg Plate Each Additional 87085-Wyorzvcz Plate Each Additional 98074-Ftalwusw Plate Each Additional 49683-Mxvwawvb Plate Each Additional 02/2022 85322-Ziaohvps Plate Each Additional 10/2022 14127-XZSM SKIN LESIONS, 2 TO 4 06/13/20 35907-XMLM SKIN LESIONS, 2 TO 4 09/19/20 57362-JTJA SKIN LESIONS, 2 TO 4 02/07/20 41831-SWMG SKIN LESIONS, 2 TO 4 05/08/20 Next Appt Details Provider Name:Surinder Brar , 08/14/2025 01:15:00 PM, [address] [place], [address], Insurance Providers Payer Name Payer Address Payer Phone Subscriber Number Group Number Insured Name Patient Relationship to Insured Coverage Start Date Coverage End Date Medicare National [employer]t [employer] [address] [facility] [place] [address] [id number] Bryce Yarbrough Self - patient is the insured 8 [employer] [address] [place] [address] [id number] Bryce Yarbrough Self - patient is the insured Medical (General) History Medical History History ICD Code Cataracts Arthritis Gout Scarlet fever Stomach ulcer Measles Mumps Chicken pox Joint implants/screws Hypertension Prostate CAD Pain in Joints rash sleep apnea Surgical History Surgery Date(Month/Year) ankle surgery colonoscopy Gall bladder 08/28/2024 Hospitalization History Reason Date(Month/[place] [facility] [place]13 HM-Blood infection/ gall bladder remove d 08/28/2024-10-
--- NOTE | 2025-08-12 09:12 | HO.ANESPROP2 ---
Documented by User: Berkley Lafleur NP 08/12/25 09:28 HPI - Anesthesia Eval Consult details Narrative: 80yo M for Upper Endoscopy with Balloon Dilitation Follows [facility] Pulmo for GEOVANNI, mild pulmo htn. Stable at 03/2025 office visit. Notes LE edema. Follows [facility] Cardiology for ASCVD/Bifasicular block. Stable at yearly office visit 08/2024. Routine visit sched 08/2025 [facility] Active Problems Active Problems: All Active Problems Ear itching (Acute) Glaucoma (Acute) Cholecystitis (Acute) Urinary tract infection (Acute) Balanitis (Acute) Dysphagia (Acute) Elevated PSA (Acute) CAD (coronary artery disease) (Acute) Elevated troponin (Acute) Precordial chest pain (Acute) Dehydration (Acute) Gout (Acute) CKD (chronic kidney disease) (Acute) Edema (Acute) Hypersensitivity reaction (Acute) Bifascicular block (Acute) Obesity (Acute) Knee pain (Acute) Chronic right hip pain (Acute) Mild depression (Acute) Encounter for annual wellness exam in Medicare patient (Acute) Atherosclerotic cardiovascular disease (Acute) BPH with obstruction/lower urinary tract symptoms (Acute) GEOVANNI (obstructive sleep apnea) (Acute) Obesity (BMI 30.0-34.9) (Acute) Obesity (Acute) Pulmonary hypertension (Acute) Essential hypertension (Acute) HLD (hyperlipidemia) (Acute) Past Medical History Medical History Cholecystitis GEOVANNI (obstructive sleep apnea) Obesity (BMI 30.0-34.9) Renal insufficiency Hx of skin pruritus Gout Gastric ulcer Obesity Pulmonary hypertension Essential hypertension HLD (hyperlipidemia) Family History Family History Father No problems noted. Mother Colon cancer Sister Colon cancer Brother Stomach cancer Family history of problems with anesthesia: No Surgical History Surgical History Hx of cholecystectomy H/O colonoscopy H/O foot surgery History of cataract surgery History of Problems with Anesthesia: No Social History Social History Household Members: None Housing: House Do you presently have visiting nurse or other home services: No Alcohol intake: never Comment: 2 MTHS AGO Patient Tobacco Use Status: Former Tobacco user e-Cigarette/Vaping Use: Never Used Second Hand Smoke Exposure: Yes Advance Directives: No Advance Directives Information Provided: Yes Advance Directives Date on File: 08/23/20 service: No Current occupational status: retired Cognitive needs: Yes (Walker) Hearing needs: No Vision needs: Yes (Glasses) Meds Allergies Allergy/AdvReac Type Severity Reaction Status Date / Time allopurinol AdvReac Mild Rash Verified 04/07/25 14:01 atorvastatin AdvReac Mild Rash Verified 04/07/25 14:01 Home Medications ?Medication ?Instructions ?Recorded ?Confirmed ?Last Taken ?Type aspirin 81 mg tablet,delayed 81 mg PO DAILY 03/16/21 04/07/25 08/28/24 History release diphenhydramine 25 1 tab PO BEDTIME PRN Pain 04/25/23 04/07/25 Unknown History mg-acetaminophen 500 mg tablet (Tylenol PM Extra Strength) CPAP (CPAP Machine/Device) 06/13/23 04/07/25 Unknown History folic acid 1 mg tablet 1 mg PO SUMOWETHFRSA@0900 08/29/24 04/07/25 08/28/24 History methotrexate sodium 2.5 mg tablet 15 mg PO TU@0900 08/29/24 04/07/25 08/26/24 History Exam Narrative Narrative: EKG 2023 Vent. Rate : 088 BPM Atrial Rate : 088 BPM P-R Int : 172 ms QRS Dur : 110 ms QT Int : 396 ms P-R-T Axes : 023 -47 009 degrees QTc Int : 479 ms Normal sinus rhythm with sinus arrhythmia Incomplete right bundle branch block Left anterior fascicular block Minimal voltage criteria for LVH, may be normal variant ( R in aVL ) Nonspecific ST abnormality Abnormal ECG When compared with ECG of 28-MAY-2023 15:14, Incomplete right bundle branch block is now Present ECHO 2022 Conclusions: - The left ventricular systolic function is normal. The calculated ejection fraction is 66% by biplane method. - No obvious valvular pathology seen on this study. - There is mild dilatation of the ascending aorta measuring 4.00 cm. NM cardiolite stress test 2022 Impression: 1. Myocardial perfusion imaging study shows likely normal myocardial perfusion 2. Gated LVEF is 62% 3. Transient ischemic dilatation not present EKG is Nondiagnostic for ischemia Assessment and Plan Assessment Anesthesia Assessment: Chart Reviewed Final Anesthetic Review Family History of Problems with Anesthesia: No History of Problems with Anesthesia: No Documented by User: Marianne Ortiz MD 08/13/25 12:58 [facility] Past Medical History Medical History Cholecystitis GEOVANNI (obstructive sleep apnea) Obesity (BMI 30.0-34.9) Renal insufficiency Hx of skin pruritus Gout Gastric ulcer Obesity Pulmonary hypertension Essential hypertension HLD (hyperlipidemia) Family History Family History Father No problems noted. Mother Colon cancer Sister Colon cancer Brother Stomach cancer Surgical History Surgical History Hx of cholecystectomy H/O colonoscopy H/O foot surgery History of cataract surgery Social History Social History Household Members: None Housing: House Do you presently have visiting nurse or other home services: No Alcohol intake: never Comment: 2 MTHS AGO Patient Tobacco Use Status: Former Tobacco user e-Cigarette/Vaping Use: Never Used Second Hand Smoke Exposure: Yes Advance Directives: No Advance Directives Information Provided: Yes Advance Directives Date on File: 08/23/20 service: No Current occupational status: retired Cognitive needs: Yes (Walker) Hearing needs: No Vision needs: Yes (Glasses) Meds Allergies Allergy/AdvReac Type Severity Reaction Status Date / Time allopurinol AdvReac Mild Rash Verified 04/07/25 14:01 atorvastatin AdvReac Mild Rash Verified 04/07/25 14:01 Home Medications ?Medication ?Instructions ?Recorded ?Confirmed ?Last Taken ?Type aspirin 81 mg tablet,delayed 81 mg PO DAILY 03/16/21 04/07/25 08/28/24 History release diphenhydramine 25 1 tab PO BEDTIME PRN Pain 04/25/23 04/07/25 Unknown History mg-acetaminophen 500 mg tablet (Tylenol PM Extra Strength) CPAP (CPAP Machine/Device) 06/13/23 04/07/25 Unknown History folic acid 1 mg tablet 1 mg PO SUMOWETHFRSA@0900 08/29/24 04/07/25 08/28/24 History methotrexate sodium 2.5 mg tablet 15 mg PO TU@0900 08/29/24 04/07/25 08/26/24 History Exam Airway Mallampati Class: II TM Dist: >3cm Neck ROM: Limited Heart: rrr Lungs: cta Assessment and Plan Assessment Anesthesia Assessment: Anesthesia Plan Discussed Final Anesthetic Review NPO: Yes ASA Class: III Final Preanesthetic Review: No Changes in Pt Med Stat, Meds/Allgs Chart Reviewed, Consent Obtained/Reviewed and Anes Risks/Benef Reviewed Patient Risk: Intermediate Procedure Risk: Low Anesthetic Plan Anesthetic Plan: MAC: Disposition: Standard PACU
[2025-08-13 12:59] VITALS: BMI 30.1
[2025-08-13 13:08] VITALS: BP 131/78; PULSE 60; RESP 18; TEMP 36.6; O2SAT 98
[2025-08-13] MEDS: Lactated Ringers 1,000 ML 100 ML IVCONT (13:18)
[2025-08-13 14:32] VITALS: BP 90/52; PULSE 68; RESP 16; TEMP 36.3; O2SAT 96
[2025-08-13 14:38] VITALS: BP 92/53; PULSE 68; RESP 16; O2SAT 95
--- NOTE | 2025-08-13 14:41 | P.BOP_ITS ---
Brief Operative Note Date of Service: 08/13/25 Pre-op diagnosis: Dysphagia Post-op diagnosis: other (Hiatal hernia) Procedure: EGD with 19mm to 20mm Balloon dilation of EG Junction Surgeon: Tre Moody MD Anesthesia: MAC Was an Tactical/Mobile Watch Officer used for this Procedure?: No Estimated blood loss (mL): 0 Pathology: none sent Condition: stable Disposition: PACU
[2025-08-13 14:43] VITALS: BP 98/62; PULSE 64; RESP 16; O2SAT 94
[2025-08-13 14:47] VITALS: BP 98/63; PULSE 68; RESP 18; TEMP 36.4; O2SAT 94
[2025-08-13 14:53] VITALS: BP 107/64; PULSE 65; RESP 18; TEMP 36.4; O2SAT 96
--- NOTE | 2025-08-13 21:31 | OP_ITS ---
DATE OF SERVICE: 08/13/2025 SURGEON: Tre Moody MD INDICATIONS: The patient presents for evaluation of intermittent dysphagia. Full consent has been obtained from him for this, including risks of bleeding and perforation. PREOPERATIVE DIAGNOSIS: Intermittent dysphagia. POSTOPERATIVE DIAGNOSIS: PROCEDURE PERFORMED: ESTIMATED BLOOD LOSS: COMPLICATIONS: ANESTHESIA: Medication used, monitored anesthesia care. ASSISTANTS: SPECIMENS: POSTOPERATIVE DIAGNOSES: Intermittent dysphagia, hiatal hernia. PROCEDURES PERFORMED: Esophagogastroduodenoscopy with balloon dilation of gastroesophageal junction. DESCRIPTION OF PROCEDURE: The patient was placed in the left lateral decubitus position. The Olympus video gastroscope was passed in the posterior oropharynx and upper esophagus under direct vision. The scope was passed slowly to the distal esophagus. The gastroesophageal junction appeared at 38 cm. With insufflation of air this did appear to open normally and was without any sign of obstructing esophageal ring or stricture. There was no esophagitis or Gerson'st mucosa noted. The scope easily entered the small hiatal hernia. The scope was advanced to the pylorus, and the duodenum was cannulated to the descending portion. The duodenum including the bulb appeared normal without mass or ulceration. The scope was withdrawn back to the stomach. The gastric antrum and body had some areas of erythema but no erosions or ulceration. There was good peristalsis. The scope was retroflexed visualizing the proximal stomach carefully which appeared normal, without any sign of mass or ulceration. The scope was straightened and withdrawn back to the esophagus. Given his symptomatology, I did dilate the gastroesophageal junction from 19 mm to 20 mm with a [employer] incremental balloon at the recommended pressure for 60 seconds each. Post-dilation, there did not appear to be any heme noted or disruption of the gastroesophageal junction. The scope was withdrawn through the remainder of the esophagus, which appeared normal. There was no evidence of any proximal esophageal rings. The scope was withdrawn from the patient. He tolerated the procedure well and was returned to the recovery area in stable condition. IMPRESSION: Hiatal hernia. PLAN: The patient has been using omeprazole 40 mg twice a day since I saw him earlier this month. He will continue that regimen to see if that will better control his reflux, as well as possibly helping his swallowing improve as I do feel he has a component of some esophageal dysmotility due to some reflux. He did have a barium swallow in November 2023 describing some esophageal dysmotility. At this point, he will be observed. If dysphagia continues to be significantly problematic, then we would want to obtain an esophageal motility study for further evaluation. This has been discussed with his daughter. MD GINA Stallings/GOGO / [id number] MTDD
== END 2025-08-13 15:31 | disposition home or self-care (01) ==
PROVIDERS: Visit Provider Internal Medicine
PROC: (CPT 43249; principal; 2025-08-13 14:30)
DX: K21.9 Gastro-esophageal reflux disease without esophagitis (principal); R13.10 Dysphagia, unspecified; K44.9 Diaphragmatic hernia without obstruction or gangrene; Z87.11 Personal history of peptic ulcer disease; I10 Essential (primary) hypertension; N28.9 Disorder of kidney and ureter, unspecified; M10.9 Gout, unspecified; Z79.899 Other long term (current) drug therapy; G47.33 Obstructive sleep apnea (adult) (pediatric); Z79.82 Long term (current) use of aspirin; Z99.89 Dependence on other enabling machines and devices; Z88.8 Allergy status to other drugs, medicaments and biological substances; Z90.49 Acquired absence of other specified parts of digestive tract; Z87.891 Personal history of nicotine dependence
CPT/HCPCS: 43249; C1726; J2003; J2704

== ENCOUNTER → 2025-09-04 17:06 | Outpatient (AMB) | payer MEDICARE, SELFPAY ==
--- OUTSIDE RECORDS SUMMARY | 2024-12-19 09:30 | XMS_ITS ---
Author Organization [facility] Address [address] [place] [address] Care Team Providers Care Embedded Firmware Engineer Name Role Phone Irving Valentin MD Primary Care Provider Unavaila Surinder Sierra Unavailable [phone] Encounters Encounter Location Date Provider Diagnosis [address] [address] 12/19/2024 Surinder Brar Plan Of Treatment Next Appt Details Provider Name:Surinder Brar , 12/11/2025 01:00:00 PM, [address] [place] [address], [phone], Progress Notes * Bryce MEJIADOB:1945 ([age] yo M)Acc No.[id number]:12/19/2024 Progress Note Patient: Bryce DRAPER Provider: Jennifer Brar DPM :1945 A ge:79 Y S ex:Male Date:12/19/2024 Address:[address], [place] Pcp:Irving Valentin MD Subjective: * Chief Complaints: [...] 12/19/2024 Generated for Dinorah saldaña/Lester/Julia on: 1 06:33 PM EDT
--- OUTSIDE RECORDS SUMMARY | 2025-08-13 10:00 | XMS_ITS ---
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
--- NOTE | 2025-09-04 17:07 | A.OFFPC_ITS ---
Intake Visit Reasons: COVID pos. Allergies allopurinol Adverse Reaction (Mild, Verified 09/04/25 17:07) Rash atorvastatin Adverse Reaction (Mild, Verified 09/04/25 17:07) Rash Tobacco use date assessed: 03/23/25 Fall risk assessment: No Falls in past year Last assessed Fall Risk: 09/04/25 Dental Screening Dental Screen Date: 03/23/25 HPI COVID pos. HPI Details covid test- daughter sick 3 days ago - patient started having mylagia yesterday. tested today low grade temp 100.4, mild cough and congestion, no sob. PFSH Medical History Cholecystitis GEOVANNI (obstructive sleep apnea) Obesity (BMI 30.0-34.9) Renal insufficiency Hx of skin pruritus Gout Gastric ulcer Obesity Pulmonary hypertension Essential hypertension HLD (hyperlipidemia) Surgical History Hx of cholecystectomy H/O colonoscopy H/O foot surgery History of cataract surgery Family History Father No problems noted. Mother Colon cancer Sister Colon cancer Brother Stomach cancer Social History Household Members: None Housing: House Are you a primary geriatric personal care aide to a significant other at home: No Do you presently have visiting nurse or other home services: No Alcohol intake: never Comment: 2 MTHS AGO Patient Tobacco Use Status: Former Tobacco user Tobacco use type: Cigarette e-Cigarette/Vaping Use: Never Used Second Hand Smoke Exposure: No Advance Directives Date on File: 08/23/20 service: No Current occupational status: retired Cognitive needs: Yes (Walker) Hearing needs: No Vision needs: Yes (Glasses) Questionnaire Thrive Questionnaire Date Thrive assessed: 03/18/25 RACHEL-7 AMB Questionnaire RACHEL-7 Date RACHEL - 7 assessed: 03/23/25 Source: Developed by Drs. Tre Salvador, Ruth Conrad, Talib Gregory and colleagues, with an educational arnoldo from [employer]. Physical exam (Primary Care) Tobacco/Smoking Status: Tobacco use Status Tobacco use date assessed 03/23/25 09/04/25 17:08 Patient Tobacco Use Status Former Tobacco user 09/04/25 17:08 Tobacco use type Cigarette 09/04/25 17:08 e-Cigarette/Vaping Use Never Used 09/04/25 17:08 Thrive Assessment: Date of Thrive Assessment Date Thrive assessed 03/18/25 09/04/25 17:08 Telehealth Telehealth Telehealth Platform: Telephone Location of provider rendering services: practice address Location of patient: address on file Patient Identification confirmed using: Name, : Yes Telehealth method: voice only Patient verbally consented to treatment: Yes Patient verbally consented to billing insurance company: Yes Patient informed of any privacy concerns related to visit: Yes Minutes spent on Phone/Video with Pt.: 15 Coding Level of Care Code Tele Est Pt Level 3 (73272) Diagnoses COVID-19 virus infection U07.1 Assessment & Plan Assessment & Plan (1) COVID-19 virus infection: Comment: [id number] Code(s): U07.1 - COVID-19 Category: Medical Plan: For the sore throat can take Cepacol lozenges, discussed about Delsym to help with dry cough so she can rest and advised to increase oral fluids. Patient also can take Tylenol for chills and fever. Antiviral prescription sent Plan History of Present Illness The patient is an 80-year-old male presenting with COVID-19 infection. He was exposed to the virus through his daughter, who tested positive last Sunday, and began experiencing symptoms yesterday. Symptoms include muscle aches, a low-grade fever of 100.4?F, mild cough, and c ongestion, with no breathing difficulties reported. A rapid home test conducted today confirmed his COVID-19 positive status. His medical history is notable for hypercholesterolemia, hypertension, ob structive sleep apnea, benign prostatic hyperplasia, atherosclerotic cardiovascular disease, and chronic kidney disease. He was last evaluated by his primary care physician on March 23, 2025. Review of Systems - General: Reports muscle aches and low-grade fever of 100.4?F. Denies chills. - Respiratory: Reports mild cough and congestion. Denies dyspnea. Plan Patient was informed and verbally consented to the use of an ambient scribe for clinic note documentation during this visit. 1. Covid-19 Infection The patient has been prescribed Paxlovid to manage COVID-19, considering his age and cardiac history, to prevent disease progression and prolonged symptoms. The prescription is sent to [facility] pharmacy, with advice to maintain hydration and use Cepacol lozenges and Delsym for symptomatic relief. DayQuil Cold and Flu Multisymptom can be continued every four hours for symptom management. Discussion Notes I discussed with the patient and his daughter the plan to prescribe Paxlovid for COVID-19 treatment, considering his age and cardiac history. We reviewed the potential benefits of the antiviral in preventing disease progression and reducing prolonged symptoms. I advised on the use of Cepacol lozenges and Delsym for symptom relief and emphasized the importance of hydration. The prescription was sent to [facility] pharmacy, and I encouraged them to contact me with any further questions or concerns. Patient Instructions - Take Paxlovid as prescribed for 5 days. - Maintain adequate hydration. - Use Cepacol lozenges for sore throat and Delsym for dry cough as needed. - Continue DayQuil Cold and Flu Multisymptom every four hours if needed. - Contact the doctor if symptoms worsen or if there are any questions. Medications: New nirmatrelvir-ritonavir 300 mg (150 mg x 2)-100 mg (Paxlovid) take TWO 150 mg tablets of nirmatrelvir with ONE 100 mg tablet of ritonavir twice daily for 5 days PO 30 ea 0RF
--- OUTSIDE RECORDS SUMMARY | 2025-09-04 18:33 | XMS_ITS | Clinical Summary ---
Author Organization [facility] Address [address] [place] [address] Care Team Providers Care Dental Assistant Name Role Phone Irving Valentin Primary Care Provider [phone] Allergies Active Allergy Reactions Criticality Noted Date [...] Every morning for 30 day(s) 023 Active triamcinolone acetonide (KENALOG) 0.1% ointmentIndications :Dermatitis Apply to rash twice daily as needed 454 g 3 023 Active Additional Information Patient not taking.Reported on 08/18/2025 triamcinolone acetonide (KENALOG) 0.1% creamIndications:De rmatitis Apply to rash twice daily until flat and smooth. Do not use on face, in genital area or in skin folds. 454 g 023 Active Additional Information Patient not taking.Reported on 08/18/2025 fexofenadine (SIMONE) 180 mg tablet Take 180 mg by mouth once a day. Active folic acid (FOLVITE) 1 mg tabletIndications:D ermal hypersensitivity reaction Take ONE tablet daily on days when you DO NOT take methotrexate FOR 6 DAYS A WEEK 24 tablet 025 Active Additional Information Patient not taking.Reported on 08/18/2025 brimonidine (ALPHAGAN) 0.2% ophthalmic solution INSTILL 1 DROP IN BOTH EYE TWICE A DAY TWELVE HOURS APART Ophthalmic for 30 Days Active clobetasoL (TEMOVATE) 0.05% ointmentIndications :Prurigo Apply to excoriated area on front of scalp twice daily under bandaid until resolved or next appt. 30 g 025 Active Additional Information Patient not taking.Reported on 08/18/2025 omeprazole (PriLOSEC) 40 mg capsule Take 40 mg by mouth 2 (two) times a day. Active naltrexone, bulk, 100 % powderIndications:P ruritus Compounded medication: take one 3 mg capsule daily for itch 30 g 3 Active dupilumab (Dupixent Pen) 300 mg/2 mL pen injectionIndication s:Other eczema Loading Dose:Inject 4 mL (600 mg total) under the skin once for 1 dose. 4 mL 025 2024 Discontinued dupilumab (Dupixent Pen) 300 mg/2 mL pen injectionIndication s:Other eczema Maintenance Dose: Inject 2 mL (300 mg total) under the skin every 14 days starting on day 15. 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 DO NOT APPLY UNDER BAND AID OCCLUSION. 40 g 025 2024 Discontinued Active Problems Problem Noted Date Diagnosed Date Change in bowel habits 11/23/2023 Diverticulosis of colon 11/23/2023 Dysphagia 11/23/2023 Esophageal dysphagia 11/23/2023 Gastroesophageal reflux disease 11/23/2023 Ingrowing nail 11/23/2023 Peptic ulcer disease 11/23/2023 Tinea unguium 11/23/2023 Hypertension 01/24/2023 Stage 3a chronic kidney disease 01/24/2023 Encounters Date Type Department Care Team Description 08/18/2025 9:45 AM EDT Office Visit [facility] [address] [place] [address], Fourth [place] [address] Fly Winder: Bg Noland MD Pruritus (Primary Dx); Actinic keratosis; Inflamed seborrheic keratosis 07/03/2025 myChart Message [facility] [address] [place] [address] Mychart, Generic Provider Financial Assistance 06/12/2025 myChart Message [facility] [address] [place] [address] Mychart, Generic Provider corrected number 06/12/2025 myChart Message [facility] [address] [place] [address] Mychart, Generic Provider Dupixshannon Lu's number 06/10/2025 myChart Message [facility] [address] [place] [address], Fourth [place] [address] Fly Winder: Bg Noland MD Dupixant follow up from Last 3 Months Immunizations Immunization Administration Dates Next Due Covid-19, Pfizer, mRNA, Twiggs valent, PF 30 mcg/0.3 mL dose (for [...] Care Team (Late st Contact Info) Description 11/24/2025 11:15 AM EST Office Visit [facility] 4th Floor [address] [place] [address], Fourth [place] [address] Fly Winder: Bg Noland MD [address] [place] [phone] Health Maintenance Due Date Last Done Comments Medicare AWV 1946 Zoster Vaccines (1 of 2) 1993 Pneumococcal Vaccine: 50+ Years (2 of 2 - PCV) 01/05/2010 01/05/2009 RSV Vaccine (60+ years old and patients) (1 - 1-dose 75+ series) 2018 Alcohol/Substance Use Screening 11/19/2024 Depression Screening and Follow-Up 11/19/2024 Health Care Proxy Review 11/19/2024 Social Drivers of Health Annual Screening 11/19/2024 COVID-19 Vaccine (2024- season) 2025 09/12/2021, 01/20/2021, 12/30/2020 Influenza Vaccine (#1) 2025 , 08/05/2024, 09/11/2023, Additional history exists Basic Metabolic Panel 02/10/2026 02/10/2025 , 10/14/2024, 02/18/2016, Additional history exists Fall Risk Screening 08/18/2026 08/18/2025 DTaP,Tdap,and Td Vaccines (2 - Td or Tdap) 05/26/2031 05/26/2021, 05/03/2018 Tobacco Screening 11/19/2042 08/18/2025 Hepatitis B Vaccines Aged Out No long er eligible based on patient's age to complete this topic Procedures * Due to [place] [employer] law, this organization might not be sharing negative HIV tests. Procedure Name Priority Date/Time Associated Diagnosis Comments COMPREHENSIVE METABOLIC PANEL Routine 02/10/2025 12:24 PM EDT High risk medication use from Last 3 Months or Most Recently Relevant to Health Maintenance Results * Due to [place] [employer] law, this organization might not be sharing negative HIV tests. * (ABNORMAL) Comprehensive Metabolic Panel (02/10/2025 12:24 PM EDT) NA 142 135 - 145 mmol/L 02/10/2025 2:46 PM EDT [email or web address] K 4.4 3.5 - 5.3 mmol/L 02/10/2025 2:46 PM EDT [email or web address] Cl 104 98 - 107 mmol/L 02/10/2025 2:46 PM EDT [email or web address] CO2 27 22 - 32 mmol/L 02/10/2025 2:46 PM EDT [email or web address] Anion Gap 11 5 - 15 [place] MANUAL 02/10/2025 2:46 PM EDT [email or web address] Glucose 86 65 - 99 mg/dL 02/10/2025 2:46 PM EDT [email or web address] Creatinine 1.15 0.60 - 1.30 mg/dL 02/10/2025 2:46 PM EDT [email or web address] Calcium 10.0 8.6 - 10.5 mg/dL 02/10/2025 2:46 PM EDT [facility] Total Protein 7.0 6.0 - 8.0 g/dL 02/10/2025 2:46 PM EDT [facility] Albumin 4.3 3.5 - 5.2 g/dL 02/10/2025 2:46 PM EDT [facility] Bilirubin, Total 0.7 0.2 - 1.2 mg/dL 02/10/2025 2:46 PM EDT [facility] Alkaline Phosphatase 85 35 - 129 U/L 02/10/2025 2:46 PM EDT [facility] AST 25 10 - 40 U/L 02/10/2025 2:46 PM EDT [facility] ALT 22 10 - 40 U/L 02/10/2025 2:46 PM EDT [facility] BUN 28(H) 7 - 23 mg/dL 02/10/2025 2:46 PM EDT [facility] eGFR 64 >=60 mL/min/1. 73m2 [facility] MANUAL 02/10/2025 2:46 PM EDT [facility] Comment:The estimated glomer ular [...] Globulin, Total 2.7 2.1 - 4.2 g/dL [facility] MANUAL 02/10/2025 2:46 PM EDT [facility] A/G Ratio 1.6 1.5 - 3.0 [facility] MANUAL 02/10/2025 2:46 PM T [facility] Blood Structure of peripheral vein / Unknown Venipuncture / Unknown 02/10/2025 12:24 PM EDT 02/10/2025 12:24 PM EDT us Bg Clinton MD LAB BLOOD ORDERABLES Final Res ult [facility] [address] [place] [address], [place] from Last 3 Months or Most Recently Relevant to Health Maintenance Insurance MEDICARE [facility] Care Teams Dental Assistant Relationship Specialty Start Date End Date Irving Valentin [address] [place] [address] [place] [address] PCP - General Internal Medicine 09/03/23
--- OUTSIDE RECORDS SUMMARY | 2025-09-04 18:33 | XMS_ITS | Encounter Summary ---
Author Organization [facility] Address [address] [place] [address] Care Team Providers Care Software Design Manager Name Role Phone Irving Valentin Primary Care Provider [phone] Encounter Details Date Type Department Care Team (Late st Contact Info) Description 06/12/2025 [employer] Message [facility] [address] [address] Mychart, Generic Provider [address] [place] [phone] corrected number Social History Tobacco Use Types [...] Description 11/24/2025 11:15 AM EST Office Visit [facility] 4th Floor [address] [facility] [address] [facility], [place] [address] Title I Coordinator: Bg Noland MD [address] [place] [phone] documented as of this encounter Visit Diagnoses Not on filedocumented in this encounter Care Teams Software Design Manager Relationship Specialty Start Date End Date Irving Valentin [address] [place] [address] [place] [address] PCP - General Internal Medicine 09/03/23 documented as of this encounter
--- OUTSIDE RECORDS SUMMARY | 2025-09-04 18:33 | XMS_ITS | Encounter Summary ---
Author Organization [facility] Address [address] [place] [address] Care Team Providers Care Business Info Consultant Name Role Phone Irving Valentin Primary Care Provider [phone] Encounter Details Date Type Department Care Team (Late st Contact Info) Description 07/03/2025 [employer] Message [facility] [address] [address] Mychart, Generic Provider [address] [place], [place] [id number] Financial Assistance Social History Tobacco Use Types [...] Description 11/24/2025 11:15 AM EST Office Visit [facility] 4th Floor [address] [facility], Fourth [place] [address] Timber Bucker: Bg Noland MD [address] [place] [phone] documented as of this encounter Visit Diagnoses Not on filedocumented in this encounter Care Teams Business Info Consultant Relationship Specialty Start Date End Date Irving Valentin [address] [place] [address] [place] [address] PCP - General Internal Medicine 09/03/23 documented as of this encounter
--- OUTSIDE RECORDS SUMMARY | 2025-09-04 18:33 | XMS_ITS | Encounter Summary ---
Author Organization [facility] Address [address] [place] [address] Care Team Providers Care Space Operations Officer Name Role Phone Irving Valentin Primary Care Provider [phone] Encounter Details Date Type Department Care Team (Late st Contact Info) Description 06/12/2025 [employer] Message [facility] [address] [address] Mychart, Generic Provider [address] [place] [phone] Jennifer Lu's number Social History Tobacco Use [...] Description 11/24/2025 11:15 AM EST Office Visit [facility] 4th Floor [address] [place] [address], [place] [address] Manufacturing Engineering Director: Bg Noland MD [address] [place] [phone] documented as of this encounter Visit Diagnoses Not on filedocumented in this encounter Care Teams Space Operations Officer Relationship Specialty Start Date End Date Irving Valentin [address] [place] [address] [place] [phone] PCP - General Internal Medicine 09/03/23 documented as of this encounter
--- OUTSIDE RECORDS SUMMARY | 2025-09-04 18:34 | XMS_ITS | Patient Health Record ---
Author Organization [facility] Address [address] [place] [address] Care Team Providers Care Cereal Popper Name Role Phone Fara Oscar Primary Care Provider Tre Frost Unavailable [phone] Allergies No Known Allergies Reason For Referral No Information Medications Medication SIG (Take, Route, Frequency, Duration) Notes Start Date End Date Status Brimonidine Tartrate 0.2 % Ophthalmic; D uration: 25 Days Active Omeprazole 40 MG TAKE ONE CAPSULE BY MOUTH IN THE MORNING upon awakening and take 1 capsule at 5pm or 6pm (2 capsules daily); Duration: 30 Active Ibuprofen 200 MG 1 tablet with food o r milk as needed Orally as needed Not-Taking Furosemide 40 MG Oral; Duration: 30 Active Carvedilol 3.125 MG Oral; Duration: 90 Active Acetaminophen 500 MG 1 capsule as needed Orally every 6 hrs Active Brimonidine Tartrate 0.2 % INSTILL 1 NETTE P IN BOTH EYE TWICE A DAY TWELVE HOURS APART Ophthalmic; Duration: 30 Days Active Aspirin 81 Active Carvedilol 3.125 MG Oral; Duration: 90 Days Active Methotrexate Sodium 2.5 MG Oral; Duratio n: 28 Days Active Immunizations Vaccine Route Administration Date Status Comme nts Flu vaccine no Preserv 3 and > Unknown 10/13/2015 Admin istered Influenza Unknown 09/04/2022 Administered Influenza Unknown 08/05/2024 Administered Problems Problem Type SNOMED Code ICD Code Onset Dates Problem Status W/U Status Risk Notes Problem Screening for malignant neoplasm of colon (471228307) Encounter for screening for malignant neoplasm of colon (Z12.11) Active confirmed Problem History of adenomatous polyp of colon (408917246) History of adenomatous polyp of colon (Z86.010) Active confirmed Problem Change in bowel habit (51700698) Change in bowel habits (R19.4) Active confirmed Problem Screening for malignant neoplasm of rectum (679319221) Encounter for screening for malignant neoplasm of rectum (Z12.12) Active confirmed Problem Dysphagia (06931640) Dysphagia (R13.10) Active confirmed Problem Gastroesophageal reflux disease without esophagitis (644004173) Gastroesophageal reflux disease without esophagitis (K21.9) Active confirmed Problem Peptic ulcer disease (21670845) Peptic ulcer disease (K27.9) Active confirmed Problem custodial current use of non-steroidal anti-inflammatory drug (481032668477548) NSAID long-term use (Z79.1) Active confirmed Problem Diverticulosis of colon (549299968) Diverticulosis of colon (K57.30) Active confirmed Problem Gastroesophageal reflux disease (533153464) Gastroesophageal reflux disease, unspecified whether esophagitis present (K21.9) Active confirmed Problem Esophageal dysphagia (35512154) Esophageal dysphagia (R13.19) Active confirmed Vital Signs Temperature 98.0 degrees Fahrenheit 08/05/2025 Blood pressure diastolic 01 mm Hg 08/05/2025 Height 70.25 in 08/05/2025 Blood pressure systolic 001 mm Hg 08/05/2025 Weight 211.2 lbs 08/05/2025 BMI 30.09 kg/m2 08/05/2025 Procedures Procedure Date Ordered Date Performed Result Body Sit e UPPER GI ENDOSCOPY BALLOOON DILATION OF ESOPH 08/05/2025 N/A Encounters Encounter Location Date Provider Diagnosis [facility] [place] [address] [place] [phone] 08/13/2025 Tre Moody [facility] [address] [place] [phone] 08/05/2025 Tre Moody Gastroesophageal ref lux disease without esophagitis K21.9 and Dysphagia R13.10 [facility] [address] [place] [phone] 08/04/2025 Tre Moody Assessments Encounter Date Diagnosis [...] Date MEDICARE OF [place] [address] [place] [address] [id number] BLAZE MEJIA Self - patient is the insured [employer] CLAIM[employer] [address] [place] [address] [id number] BLAZE MEJIA Self - patient is the insured Medical (General) History Medical History History ICD Code Small tubular adenomas remov ed in 2002 and in July 2011; he had a negative colonoscopy in 2005 with and a negative colon[place] [address] Mast; he does have diverticulosis and internal hemorrhoids Gastric ulcer in 1993- EGD- biopsies wer e neg. for H.pylori Denies IL,DM,CVA,Lung disease,renal dise ase HTN Gout Reported bleeding duodenal ulcer in the Negative screening colonoscopy in 2016 Pruritic skin rash followed by Dr. Thomason from dermatology as of the 01/2023 OV Renal insufficiency- seeing Dr. Barnard- 01/24/2023 Sleep apnea-using CPAP Neg.Nuclear med [place] [facility] [place] Neg. colonoscopy 03/2023 Upper endoscopy [...]
--- OUTSIDE RECORDS SUMMARY | 2025-09-04 18:34 | XMS_ITS | Patient Health Record ---
[facility] Address [address] [facility] [place] [address] Care Team Providers Care Automatic Presser Name Role Phone Homero BUCK, Irving Primary Care Provider Surinder Arriola Unavailable [phone] Allergies No Known Allergies Reason For Referral No Information Medications Medication SIG (Take, Route, Frequency, Duration) Notes Start Date End Date Status Tamsulosin HCl 0.4 MG 1 capsule Orally O nce a day Not-Taking Lisinopril 20 MG Orally Not -Taking Lisinopril-hydroCHLOROthi azide Not-Taking Methotrexate Sodium 2.5 MG Oral; Duration: 28 Days Not- Taking Brimonidine Tartrate 0.2 % INSTILL 1 DROP IN BOTH EYE TWICE A DAY TWELVE HOURS APART Ophthalmic; Duration: 30 Days Active Atorvastatin Calcium 40 MG Orally Not-Taking Allopurinol 150mg Orally No t-Taking Omeprazole Active Ciclopirox Olamine 0.77 % 1 application to affected area Externally Twice a day; Duration: 30 days Not-Taking aspirin baby Active Rosuvastatin Calcium Not-Taking Carvedilol Active Flomax Not-Taking Furosemide Active Folic Acid Not-Takin g Immunizations Vaccine Route Administration Date Status Comme [...] (Standard) Question Answer Notes Tobacco use: Nonsmoker Additional Findings: Tobacco non-user Current no nsmoker AUDIT-C (Standard) Question Answer Notes Did you have a drink contain ing alcohol in the past year? Yes How often did you have a dri nk containing alcohol in the past year? Monthly or less (1 point) How many drinks did you have on a typical day when you were drinking in the past year? 1 or 2 drinks (0 point) How often did you have six o r more drinks on one occasion in the past year? Never (0 point) Points 1 Interpretation Negative Problems Problem Type SNOMED Code ICD Code Onset Dates Problem Status W/U Status Risk Notes Problem Bilateral atherosclerosis of arteries of lower limbs (disorder) ([id number] ) Atherosclerosis of [place] artery of both lower extremities, with unspecified presence of clinical manifestation (I70.203) Active confirmed Q7(A), Q8(2B), Q9(1B,2 C) Vital Signs Blood pressure diastolic 75 mm Hg 08/14/2025 Height 5 ft 11 in in 08/14/2025 Blood pressure systolic 135 mm Hg 08/14/2025 Weight 200 lbs 08/14/2025 BMI 27.89 kg/m2 08/14/2025 Procedures Procedure Date Ordered Date Performed Result Body Sit e 19770-YOVKTBQ NAIL, 6 OR MORE 09/19/2024 N/A 44660-Voxepyif Plate 09/19/2024 N/A 65198-AJHT SKIN LESIONS, 2 TO 4 09/19/2024 N/A 56995-AWWUWNN NAIL, 6 OR MORE 02/06/2025 N/A 31367-Jiybgsdi Plate 02/06/2025 N/A 39916-LJZQ SKIN LESIONS, 2 TO 4 02/06/2025 N/A 75958-BYBEBZD NAIL, 6 OR MORE 05/08/2025 N/A 12674-Noqmtpmp Plate 05/08/2025 N/A 36569-JOAH SKIN LESIONS, 2 TO 4 05/08/2025 N/A 29221-IKXARTZ NAIL, 6 OR MORE 08/14/2025 N/A 95422-Aggwahxr Plate 08/14/2025 N/A 57322-NUEK SKIN LESIONS, 2 TO 4 08/14/2025 N/A Encounters Encounter Location Date Provider Diagnosis [address] [address] 09/19/2024 Surinder Zonia Atherosclerosis of igiugig artery of both lower extremities, with unspecified presence of clinical manifestation I70.203 ; Tinea unguium B35.1 ; Pain in right toe(s) M79.674 ; Pain in left toe(s) M79.675 and Ingrown nail L60.[address] [address] 02/06/2025 Surinder Zonia Atherosclerosis of igiugig artery of both lower extremities, with unspecified presence of clinical manifestation I70.203 ; Tinea unguium B35.1 ; Pain in right toe(s) M79.674 ; Pain in left toe(s) M79.675 and Ingrown nail L60.[address] [address] 05/08/2025 Surinderjeancarlos TraoreZonia Atherosclerosis of igiugig artery of both lower extremities, with unspecified presence of clinical manifestation I70.203 ; Tinea unguium B35.1 ; Pain in right toe(s) M79.674 ; Pain in left toe(s) M79.675 and Ingrown nail L60.[address] [address] 08/14/2025 Surinder Zonia Atherosclerosis of igiugig artery of both lower extremities, with unspecified presence of clinical manifestation I70.203 ; Tinea unguium B35.1 ; Pain in right toe(s) M79.674 ; Pain in left toe(s) M79.675 and Ingrown nail L60.[address] [address] 12/15/2024 Surinder Zonia Assessments Encounter Date Diagnosis (ICD Code) Assessment Notes Treatment Notes Treatment Clinical Notes Section Notes 09/19/2024 Tinea unguium (ICD-10 - B35.1) 09/19/2024 Atherosclerosis of igiugig artery of both lower extremities, with unspecified presence of clinical manifestation (ICD-10 - I70.203) 02/06/2025 Tinea unguium (ICD-10 - B35.1) 02/06/2025 Atherosclerosis of igiugig artery of both lower extremities, with unspecified presence of clinical manifestation (ICD-10 - I70.203) Q7(A), Q8(2B), Q9(1B,2C) 05/08/2025 Tinea unguium (ICD-10 - B35.1) 05/08/2025 Atherosclerosis of igiugig artery of both lower extremities, with unspecified presence of clinical manifestation (ICD-10 - I70.203) Q7(A), Q8(2B), Q9(1B,2C) 08/14/2025 Tinea unguium (ICD-10 - B35.1) 08/14/2025 Atherosclerosis of igiugig artery of both lower extremities, with unspecified presence of clinical manifestation (ICD-10 - I70.203) Q7(A), Q8(2B), Q9(1B,2C) 08/14/2025 Pain in right toe(s) (ICD-10 - M79.674) 05/08/2025 Pain in right toe(s) (ICD-10 - M79.674) 02/06/2025 Pain in right toe(s) (ICD-10 - M79.674) 09/19/2024 Pain in right toe(s) (ICD-10 - M79.674) 09/19/2024 Pain in left toe(s) (ICD-10 - M79.675) 02/06/2025 Pain in left toe(s) (ICD-10 - M79.675) 05/08/2025 Pain in left toe(s) (ICD-10 - M79.675) 08/14/2025 Pain in left toe(s) (ICD-10 - M79.675) 05/08/2025 Ingrown nail (ICD-10 - L60.0) 08/14/2025 Ingrown nail (ICD-10 - L60.0) 02/06/2025 Ingrown nail (ICD-10 - L60.0) 09/19/2024 Ingrown nail (ICD-10 - L60.0) Plan Of Treatment Pending Test Test Name Order Date 41161-VOCJRRS NAIL, 6 OR MORE 02/23/2017 56993-UBSCAQA NAIL, 6 OR MORE 06/01/2017 56740-IXBGDPS NAIL, 6 OR MORE 08/31/2017 56081-PEJBFYH NAIL, 6 OR MORE 11/23/2017 29781-GMXBIHZ NAIL, 6 OR MORE 02/22/2018 78985-DNEUQPY NAIL, 6 OR MORE 05/24/2018 82629-SZAVLOZ NAIL, 6 OR MORE 08/23/2018 49568-PFCUQXL NAIL, 6 OR MORE 12/03/2018 03296-YWQQLQX NAIL, 6 OR MORE 03/07/2019 20441-XPXYHYC NAIL, 6 OR MORE 06/13/2019 00648-FXNHMVB NAIL, 6 OR MORE 10/03/2019 30169-GTUJMRN NAIL, 6 OR MORE 01/02/2020 41201-RWJGDHS NAIL, 6 OR MORE 04/09/2020 58608-ZGQHACQ NAIL, 6 OR MORE 07/02/2020 01992-RTMAFVT NAIL, 6 OR MORE 10/08/2020 66688-BLIMWZF NAIL, 6 OR MORE 01/07/2021 63407-WWMFZMO NAIL, 6 OR MORE 05/10/2021 44406-UBTLGLY NAIL, 6 OR MORE 08/09/2021 21367-PJLOIER NAIL, 6 OR MORE 11/22/2021 81949-ZDQZTFP NAIL, 6 OR MORE 02/28/2022 50619-KIURHFP NAIL, 6 OR MORE 07/25/2022 46441-INYKGCT NAIL, 6 OR MORE 11/03/2022 81041-RHILKBK NAIL, 6 OR MORE 02/09/2023 02481-DJGOWRH NAIL, 6 OR MORE 05/08/2023 00930-IEHISIB NAIL, 6 OR MORE 08/24/2023 86009-ILNSZFR NAIL, 6 OR MORE 12/11/2023 68860-ZJLWOHF NAIL, 6 OR MORE 03/14/2024 90704-BJFQTMS NAIL, 6 OR MORE 06/13/2024 27041-FCAMFCP NAIL, 6 OR MORE 09/19/2024 55673-LTVPWTP NAIL, 6 OR MORE 02/06/2025 38966-CEECEIV NAIL, 6 OR MORE 05/08/2025 27894-KHRYDEJ NAIL, 6 OR MORE 08/14/2025 99311-Nilokeue Plate 08/14/2025 87461-Nrronhwa Plate 05/08/2025 20137-Bmoaidel Plate 02/06/2025 48940-Qkvbybpp Plate 09/19/2024 78489-Xjxqxwtr Plate 06/13/2024 34781-Cwqymkpz Plate 03/14/2024 56723-Dyhdjufi Plate 12/11/2023 07485-Bjgopktb Plate 08/24/2023 85429-Ilzkwata Plate 05/08/2023 67884-Apianoau Plate 02/09/2023 19472-Wirfthxy Plate 11/03/2022 29267-Zcvmykjm Plate 07/25/2022 97543-Lmoednhy Plate 02/28/2022 49191-Nsxwhnsc Plate 11/22/2021 55652-Igfkeeaf Plate 08/09/2021 46319-Xjcacfhb Plate 05/10/2021 27516-Txycwrke Plate 01/07/2021 01645-Piwomsil Plate 10/08/2020 96609-Gfmlhgmg Plate 07/02/2020 19785-Zinlyniz Plate 04/09/2020 52906-Vpgnvxmz Plate 01/02/2020 97439-Edvdhazv Plate 10/03/2019 96019-Vwzvqrrk Plate 06/13/2019 58354-Ysrtclqa Plate 08/23/2018 94965-Dmuxnwfg Plate 12/03/2018 84470-Rrhhptaa Plate 03/07/2019 17908-Bkmnxtsk Plate 02/22/2018 04806-Bmlvsajm Plate 05/24/2018 80377-Emlpjlak Plate 08/31/2017 18562-Yobexkqx Plate 11/23/2017 72544-Qihvonmq Plate Each Additional 04/2018 07650-Vhaedccr Plate Each Additional 03/2018 77472-Gpnlanvi Plate Each Additional 25594-Syvryfwy Plate Each Additional 04/2018 09907-Ecoescxp Plate Each Additional 84918-Iqjimact Plate Each Additional 03/2018 40283-Iweovbkn Plate Each Additional 00154-Fnoxjhky Plate Each Additional 67185-Eyfdvrap Plate Each Additional 66943-Hhidmvks Plate Each Additional 36685-Agazsdkj Plate Each Additional 80766-Irpxvwwr Plate Each Additional 90228-Szvbflpk Plate Each Additional 56822-Hitgbvyr Plate Each Additional 03948-Cttxgbtx Plate Each Additional 23202-Cabyllyw Plate Each Additional 94289-Rcnhnkio Plate Each Additional 02/2022 48145-Arxuoqgl Plate Each Additional 10/2022 09407-UFDF SKIN LESIONS, 2 TO 4 06/13/20 61940-LZAR SKIN LESIONS, 2 TO 4 09/19/20 63946-VZTA SKIN LESIONS, 2 TO 4 02/07/20 45016-PKYY SKIN LESIONS, 2 TO 4 05/08/20 69259-CJFN SKIN LESIONS, 2 TO 4 08/14/20 Next Appt Details Provider Name:Surinder Brar , 12/11/2025 01:00:00 PM, [address] [place], [address], Insurance Providers Payer Name Payer Address Payer Phone Subscriber Number Group Number Insured Name Patient Relationship to Insured Coverage Start Date Coverage End Date Medicare National [facility] [address] [facility] [place] [address] [id number] Bryce Yarbrough Self - patient is the insured 8 [employer] [address] [place] [address] [id number] Bryce Yarbrough Self - patient is the insured Medical (General) History Medical History History ICD Code Cataracts Arthritis Gout Scarlet fever Stomach ulcer Measles Mumps Chicken pox Joint implants/screws Hypertension Prostate CAD Pain in Joints rash sleep apnea Surgical History Surgery Date(Month/Year) ankle surgery colonoscopy Gall bladder 08/28/2024 endoscopy 08/13/2025 Hospitalization History Reason Date(Month/Year) [facility] [place]- eye condition 12/13 [facility] [place] [place]-Blood infection/ gall bladder remove d 08/28/2024-10-
== END ==
LOC: HO.HMCH 17:06
PROVIDERS: Visit Provider Internal Medicine
DX: U07.1 COVID-19 (principal)

== ENCOUNTER 2025-09-16 14:00 | Outpatient (AMB) | payer MEDICARE, SELFPAY ==
--- OUTSIDE RECORDS SUMMARY | 2024-12-19 09:30 | XMS_ITS ---
Author Organization [facility] Address [address] [place] [address] Care Team Providers Care Class 1 Owner Operator Name Role Phone Irving Valentin MD Primary Care Provider Unavaila Surinder Sierra Unavailable [phone] Encounters Encounter Location Date Provider Diagnosis [address] [address] 12/19/2024 Surinder Brar Plan Of Treatment Next Appt Details Provider Name:Surinder Brar , 12/11/2025 01:00:00 PM, [address] [place] [address], [phone], Progress Notes * Bryce MEJIADOB:1945 ([age] yo M)Acc No.[id number]:12/19/2024 Progress Note Patient: Bryce DRAPER Provider: Jennifer Brar DPM :1945 A ge:79 Y S ex:Male Date:12/19/2024 Address:[address], [place] Pcp:Irving Valentin MD Subjective: * Chief Complaints: * * Medical History: Objective: * Vitals: Assessment: Plan: * Treatment: * Images: * The named appointment provid er may or may not be the originator of this progress note, and it is not deemed complete until electronically signed by the appointment provider. Sign off status: Pending * Provider: Jennifer Brar DPM Date: 0 12/19/2024 Generated for Dinorah saldaña/Lester/Jluia on: 1 06:00 PM EDT
--- OUTSIDE RECORDS SUMMARY | 2025-08-13 10:00 | XMS_ITS ---
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 Pcp:PRIYANK Causey Subjective: * Chief Complaints: * [...] MD Date: 0 08/13/2025 Generated for Printi ng/Faxing/eTransmitting on: 1 05:59 PM EDT
[2025-09-16 14:04] VITALS: BP 120/68; PULSE 67; BMI 28.5
--- NOTE | 2025-09-16 14:04 | A.OFFVIS_ITS ---
Vital Signs 09/16/25 14:04 Height 5 ft 10 in Weight 198 lb 6.656 oz BMI 28.5 BP 120/68 Blood Pressure Location Lt brachial Position Sitting Pulse 67 Pulse Source Monitor Intake Visit Reasons: 1 yr f/up Allergies allopurinol Adverse Reaction (Mild, Verified 09/04/25 17:07) Rash atorvastatin Adverse Reaction (Mild, Verified 09/04/25 17:07) Rash Medication List - Last Reconciled 09/16/25 by Salvador Atkins MD aspirin 81 mg PO DAILY brimonidine 0.2% 1 drp ophthalmic (eye) BID carvedilol 3.125 mg PO BID CPAP (CPAP Machine/Device) As directed diphenhydramine-acetaminophen 25-500 mg (Tylenol PM Extra Strength) 1 tab PO BEDTIME PRN furosemide 40 mg PO DAILY [Shower chair As directed] [Walker As directed] HPI Comments Details: Bryce returns for follow-up regarding coronary artery disease. Overall, he states he is getting along fine. He has lost about 20+ lb and he states he is feeling better although his daughter is not happy about the weight loss. COUNTS INCLUDE 234 BEDS AT THE [facility] Medical History Cholecystitis GEOVANNI (obstructive sleep apnea) Obesity (BMI 30.0-34.9) Renal insufficiency Hx of skin pruritus Gout Gastric ulcer Obesity Pulmonary hypertension Essential hypertension HLD (hyperlipidemia) Surgical History Hx of cholecystectomy H/O colonoscopy H/O foot surgery History of cataract surgery Family History Father No problems noted. Mother Colon cancer Sister Colon cancer Brother Stomach cancer Social History Household Members: None Housing: House Are you a primary healthcare marketer to a significant other at home: No Do you presently have visiting nurse or other home services: No Alcohol intake: never Comment: 2 MTHS AGO Patient Tobacco Use Status: Former Tobacco user Tobacco use type: Cigarette e-Cigarette/Vaping Use: Never Used Second Hand Smoke Exposure: No Advance Directives Date on File: 10/05/20 service: No Current occupational status: retired Cognitive needs: Yes (Walker) Hearing needs: No Vision needs: Yes (Glasses) Review of Systems Const Denies weakness ENT Denies dizziness Card Denies chest pain, Denies chest pain with activity, Denies syncope, Denies rapid heart rate, Denies pedal edema, Denies edema, Denies leg edema, Denies lightheadedness, Denies palpitations, Denies dyspnea, Denies dyspnea on exertion and Denies orthopnea Resp Denies cough, Denies dyspnea and Denies dyspnea on exertion GI Denies hematochezia and Denies change in stool character Musc Denies abnormal gait, Denies muscle cramps, Denies muscle weakness, Denies numbness, Denies radiating pain into limb and Denies tingling Neuro Denies abnormal gait, Denies dizziness, Denies syncope, Denies numbness, Denies tingling and Denies weakness Endo Denies palpitations Physical Exam Vital Signs: Last Vital Signs Pulse 67 09/16/25 14:04 BP 120/68 09/16/25 14:04 BMI result Body Mass Index 28.5 Const General: comfortable and no acute distress Orientation/consciousness: patient oriented x3 HEENT Other: Unremarkable Head: Yes normal to inspection Neck Neck: Yes normal visual inspection Chest Chest palpation & inspection: normal inspection of the chest Resp Auscultation: clear to auscultation bilaterally Cardio Palpation: normal PMI Heart sounds: S1 normal heart sound present, S2 normal heart sound present, no gallops, no murmurs and no rubs GI Palpation (GI): Soft to palpation Back/Spine/Pelvis Other: unremarkable Skin General skin exam: no rashes or lesions noted Neuro General: patient oriented x3 Extrem General: Yes normal to inspection Psych Mental Status: mental status grossly normal Office Procedures EKG Details: EKG with underlying sinus rhythm at 67/Min; right bundle-branch block; left anterior fascicular [place] [address]-Ojaqmmnnhcayxggzl, Complete Assessment & Plan Assessment & Plan (1) Atherosclerotic cardiovascular disease: Code(s): I25.10 - Atherosclerotic heart disease of [place] coronary artery without angina pectoris Category: Medical Plan: Coronary CTA 2020- nonobstructive disease in the LAD, RCA; in the PDA origin, s uspected 50-69% stenosis; scattered calcification in the circumflex. Overall, no hemodynamically significant lesions. Stable from 2018. Myocardial perfusion imaging study from 2022 shows normal perfusion. Clinically, no angina. Remains on aspirin, beta-blockers. No longer taking statins as apparently he developed a rash and he does not want to try anything else. (2) Bifascicular block: Code(s): I45.2 - Bifascicular block Category: Medical Plan: We monitored on EKGs. (3) Essential hypertension: Code(s): I10 - Essential (primary) hypertension Category: Medical Plan: Currently only on carvedilol. In the past, has been on lisinopril, hydrochlorothiazide, amlodipine. Stable blood pressure. Plan Discussion Notes During the visit, we discussed the patient's significant weight loss and decreased appetite, emphasizing the need for monitoring and potential further evaluation if the weight loss persists. The potential impact of weight loss on sleep apnea was considered, and a re-evaluation of CPAP needs was recommended. Patient was informed and verbally consented to the use of an ambient scribe for clinic note documentation during this visit. Coding Level of Care Code Est Pt Level 4 (73383) Complex EM visit Add On G2211 Diagnoses Atherosclerotic cardiovascular disease I25.10 Bifascicular block I45.2 Essential hypertension I10 CPT Codes EKG - CPT: 30073-Qweedjrymmarqsbdx, Complete ([id number])
--- OUTSIDE RECORDS SUMMARY | 2025-09-16 17:59 | XMS_ITS | Clinical Summary ---
Author Organization [facility] Address [address] [place] [address] Care Team Providers Care Car Sales Representative Name Role Phone Irving Valentin Primary Care Provider [phone] Allergies Active Allergy Reactions Criticality Noted Date [...] Description 08/18/2025 9:45 AM EDT Office Visit [facility] [address]th [address] [place] [address], [place] [address] Retail Asset Protection Specialist: Bg Noland MD Pruritus (Primary Dx); Actinic keratosis; Inflamed seborrheic keratosis 07/03/2025 myChart Message [facility] [address] [place] [address] Mychart, Generic Provider Financial Assistance from Last 3 Months Immunizations Immunization Administration Dates Next Due Covid-19, Pfizer, mRNA, Trimble valent, PF 30 mcg/0.3 mL dose (for [...] Description 11/24/2025 11:15 AM EST Office Visit [facility] 4th Floor [address] [facility], [place] [address] Retail Asset Protection Specialist: Bg Noland MD [address] [place] [address] Health Maintenance Due Date Last Done Comments Medicare AWV 1946 Zoster Vaccines (1 of 2) 1993 Pneumococcal Vaccine: 50+ Years (2 of 2 - PCV) 01/05/2010 01/05/2009 RSV Vaccine (60+ years old and patients) (1 - 1-dose 75+ series) 2018 Alcohol/Substance Use Screening 11/19/2024 Depression Screening and Follow-Up 11/19/2024 Health Care Proxy Review 11/19/2024 Social Drivers of Health Annual Screening 11/19/2024 COVID-19 Vaccine (4 - 2024- season) 2025 09/12/2021, 01/20/2021, 12/30/2020 Influenza Vaccine [...] this topic Procedures * Due to [place] [employer] law, this organization might not be sharing negative HIV tests. Procedure Name Priority Date/Time Associated Diagnosis Comments COMPREHENSIVE METABOLIC PANEL Routine 02/10/2025 12:24 PM EDT High risk medication use from Last 3 Months or Most Recently Relevant to Health Maintenance Results * Due to [place] state law, this organization might not be sharing negative HIV tests. * (ABNORMAL) Comprehensive Metabolic Panel (02/10/2025 12:24 PM EDT) NA 142 135 - 145 mmol/L 02/10/2025 2:46 PM EDT [facility] K 4.4 3.5 - 5.3 mmol/L 02/10/2025 2:46 PM EDT [facility] Cl 104 98 - 107 mmol/L 02/10/2025 2:46 PM EDT [facility] CO2 27 22 - 32 mmol/L 02/10/2025 2:46 PM EDT [facility] Anion Gap 11 5 - 15 [place] MANUAL 02/10/2025 2:46 PM EDT [facility] Glucose 86 65 - 99 mg/dL 02/10/2025 2:46 PM EDT [facility] Creatinine 1.15 0.60 - 1.30 mg/dL 02/10/2025 2:46 PM EDT [facility] Calcium 10.0 8.6 - 10.5 mg/dL 02/10/2025 2:46 PM EDT [facility] Total Protein 7.0 6.0 - 8.0 g/dL 02/10/2025 2:46 PM EDT [facility] Albumin 4.3 3.5 - 5.2 g/dL 02/10/2025 2:46 PM EDT [facility] Bilirubin, Total 0.7 0.2 - 1.2 mg/dL 02/10/2025 2:46 PM EDT [facility] Alkaline Phosphatase 85 35 - 129 U/L 02/10/2025 2:46 PM EDT [facility] AST 25 10 - 40 U/L 02/10/2025 2:46 PM EDT [facility] ALT 22 10 - 40 U/L 02/10/2025 2:46 PM EDT [facility] BUN 28(H) 7 - 23 mg/dL 02/10/2025 2:46 PM EDT [facility] eGFR 64 >=60 mL/min/1. 73m2 [facility] MANUAL 02/10/2025 2:46 PM EDT [facility] Comment:The estimated glomer ular [...] Globulin, Total 2.7 2.1 - 4.2 g/dL [facility] MANUAL 02/10/2025 2:46 PM EDT [facility] A/G Ratio 1.6 1.5 - 3.[address] [facility] MANUAL 02/10/2025 2:46 PM EDT [facility] Blood Structure of peripheral vein / Unknown Venipuncture / Unknown 02/10/2025 12:24 PM EDT 02/10/2025 12:24 PM EDT us Bg Clinton MD LAB BLOOD ORDERABLES Final Res ult [facility] [address] [place] [address], [place] from Last 3 Months or Most Recently Relevant to Health Maintenance Insurance MEDICARE [facility] MCR SUPP Care Teams Car Sales Representative Relationship Specialty Start Date End Date Irving Valentin [address] [place] [address] [place] [address] PCP - General Internal Medicine 09/03/23
--- OUTSIDE RECORDS SUMMARY | 2025-09-16 18:00 | XMS_ITS | Encounter Summary ---
Author Organization [facility] Address [address] [place] [address] Care Team Providers Care Tube Drawer Name Role Phone Irving Valentin Primary Care Provider Encounter Details Date Type Department Care Team (Late st Contact Info) Description 07/03/2025 [employer] Message [facility] [address] [address] Mychart, Generic Provider [address] [place], [place] [id number] Financial Assistance Social History Tobacco Use Types [...] Description 11/24/2025 11:15 AM EST Office Visit [facility] 4th Floor [address] [facility], [place] [address] Gas Cutter: Bg Noland MD [address] [place] [phone] documented as of this encounter Visit Diagnoses Not on filedocumented in this encounter Care Teams Tube Drawer Relationship Specialty Start Date End Date Irving Valentin [address] [place] [address] [place] [address] PCP - General Internal Medicine 09/03/23 documented as of this encounter
--- OUTSIDE RECORDS SUMMARY | 2025-09-16 18:00 | XMS_ITS | Patient Health Record ---
Author Organization [facility] Address [address] [place] [place] [address] Care Team Providers Care Transportation Agent Name Role Phone Homero BUCK, Irving Primary Care Provider Surinder Arriola Unavailable [phone] Allergies No Known Allergies Reason For Referral [...] atherosclerosis of arteries of lower limbs (disorder) (77364903467194780 ) Atherosclerosis of [place] artery of both lower extremities, with unspecified presence of clinical manifestation (I70.203) Active confirmed Q7(A), Q8(2B), Q9(1B,2 C) Vital Signs Blood pressure diastolic 75 mm Hg 08/14/2025 Height 5 ft 11 in in 08/14/2025 Blood pressure systolic 135 mm Hg 08/14/2025 Weight 200 lbs 08/14/2025 BMI 27.89 kg/m2 08/14/2025 Procedures Procedure Date Ordered Date Performed Result Body Sit e 46200-QUZPBBM NAIL, 6 OR MORE 09/19/2024 N/A 92907-Tkkvfodn Plate 09/19/2024 N/A 23233-JPSV SKIN LESIONS, 2 TO 4 09/19/2024 N/A 06496-DADUZUH NAIL, 6 OR MORE 02/06/2025 N/A 58012-Ncavlgbr Plate 02/06/2025 N/A 24130-ARRZ SKIN LESIONS, 2 TO 4 02/06/2025 N/A 69629-MKEFWHB NAIL, 6 OR MORE 05/08/2025 N/A 25181-Lravsexg Plate 05/08/2025 N/A 34336-SCNV SKIN LESIONS, 2 TO 4 05/08/2025 N/A 06553-CROGMCM NAIL, 6 OR MORE 08/14/2025 N/A 02034-Slvhkhbv Plate 08/14/2025 N/A 29618-JLLO SKIN LESIONS, 2 TO 4 08/14/2025 N/A Encounters Encounter Location Date Provider Diagnosis [address] [address] 09/19/2024 Surinder Zonia Atherosclerosis of [place] artery of both lower extremities, with unspecified presence of clinical manifestation I70.203 ; Tinea unguium B35.1 ; Pain in right toe(s) M79.674 ; Pain in left toe(s) M79.675 and Ingrown nail L60.[address] [address] 02/06/2025 Surinder Zonia Atherosclerosis of [place] artery of both lower extremities, with unspecified presence of clinical manifestation I70.203 ; Tinea unguium B35.1 ; Pain in right toe(s) M79.674 ; Pain in left toe(s) M79.675 and Ingrown nail L60.[address] [address] 05/08/2025 Surinderjeancarlos TraoreZonia Atherosclerosis of [place] artery of both lower extremities, with unspecified presence of clinical manifestation I70.203 ; Tinea unguium B35.1 ; Pain in right toe(s) M79.674 ; Pain in left toe(s) M79.675 and Ingrown nail L60.[address] [address] 08/14/2025 Surinder Zonia Atherosclerosis of [place] artery of both lower extremities, with unspecified presence of clinical manifestation I70.203 ; Tinea unguium B35.1 ; Pain in right toe(s) M79.674 ; Pain in left toe(s) M79.675 and Ingrown nail L60.[address] [address] 12/15/2024 Surinder Zonia Assessments Encounter Date Diagnosis (ICD Code) Assessment Notes Treatment Notes Treatment Clinical Notes Section Notes 09/19/2024 Tinea unguium (ICD-10 - B35.1) 09/19/2024 Atherosclerosis of [place] artery of both lower extremities, with unspecified presence of clinical manifestation (ICD-10 - I70.203) 02/06/2025 Tinea unguium (ICD-10 - B35.1) 02/06/2025 Atherosclerosis of [place] artery of both lower extremities, with unspecified presence of clinical manifestation (ICD-10 - I70.203) Q7(A), Q8(2B), Q9(1B,2C) 05/08/2025 Tinea unguium (ICD-10 - B35.1) 05/08/2025 Atherosclerosis of [place] artery of both lower extremities, with unspecified presence of clinical manifestation (ICD-10 - I70.203) Q7(A), Q8(2B), Q9(1B,2C) 08/14/2025 Tinea unguium (ICD-10 - B35.1) 08/14/2025 Atherosclerosis of [place] artery of both lower extremities, with unspecified [...] Treatment Pending Test Test Name Order Date 75311-OWMFSXC NAIL, 6 OR MORE 02/23/2017 39569-CCUBRSX NAIL, 6 OR MORE 06/01/2017 59915-HIURSWQ NAIL, 6 OR MORE 08/31/2017 25897-XDCEIGN NAIL, 6 OR MORE 11/23/2017 46943-HMEZIDH NAIL, 6 OR MORE 02/22/2018 48586-XLUPZGL NAIL, 6 OR MORE 05/24/2018 79171-CHATVBA NAIL, 6 OR MORE 08/23/2018 23727-LGGWVIN NAIL, 6 OR MORE 12/03/2018 50557-TPWOLDD NAIL, 6 OR MORE 03/07/2019 90614-SDJDQLM NAIL, 6 OR MORE 06/13/2019 26566-XCCXSTW NAIL, 6 OR MORE 10/03/2019 47028-BPODWHI NAIL, 6 OR MORE 01/02/2020 85136-LAUPAFD NAIL, 6 OR MORE 04/09/2020 15181-SKJLVFG NAIL, 6 OR MORE 07/02/2020 05158-NXLCDTR NAIL, 6 OR MORE 10/08/2020 51767-VJGCZMD NAIL, 6 OR MORE 01/07/2021 98237-HUFQNII NAIL, 6 OR MORE 05/10/2021 37026-NTOVHPC NAIL, 6 OR MORE 08/09/2021 66153-RTZBFIZ NAIL, 6 OR MORE 11/22/2021 32571-JVWSAJO NAIL, 6 OR MORE 02/28/2022 32623-QCYPODJ NAIL, 6 OR MORE 07/25/2022 88771-ONDVRTI NAIL, 6 OR MORE 11/03/2022 31900-CLWINVR NAIL, 6 OR MORE 02/09/2023 61207-BFSCIBQ NAIL, 6 OR MORE 05/08/2023 16945-EBBFKKY NAIL, 6 OR MORE 08/24/2023 56696-BDRGDII NAIL, 6 OR MORE 12/11/2023 17079-GILLMXO NAIL, 6 OR MORE 03/14/2024 51614-SUPJNVK NAIL, 6 OR MORE 06/13/2024 89761-PKWQFSA NAIL, 6 OR MORE 09/19/2024 67297-NAIENAQ NAIL, 6 OR MORE 02/06/2025 71260-ASKOHVM NAIL, 6 OR MORE 05/08/2025 22465-VQYWQTU NAIL, 6 OR MORE 08/14/2025 75108-Dpuzibwv Plate 08/14/2025 99426-Bpgmvplw Plate 05/08/2025 51939-Bevtfflv Plate 02/06/2025 18313-Fqluqowj Plate 09/19/2024 12433-Uqchxwvj Plate 06/13/2024 38902-Coyatcvc Plate 03/14/2024 87025-Tgbstpoz Plate 12/11/2023 15812-Keuvztfy Plate 08/24/2023 07823-Scckyoxp Plate 05/08/2023 44164-Midnghsk Plate 02/09/2023 78838-Lbrnnvuq Plate 11/03/2022 76147-Eapkrgin Plate 07/25/2022 12692-Shvejvea Plate 02/28/2022 47701-Ymcdntup Plate 11/22/2021 72274-Pxttecew Plate 08/09/2021 83476-Nlssyfot Plate 05/10/2021 82754-Yckyhpmz Plate 01/07/2021 85298-Ivbstytn Plate 10/08/2020 10418-Cmlfhrkd Plate 07/02/2020 43432-Wlstgvlo Plate 04/09/2020 70450-Lidilttb Plate 01/02/2020 53083-Zockxszb Plate 10/03/2019 63270-Jcxvjkiq Plate 06/13/2019 49870-Jnaaajqj Plate 08/23/2018 70087-Mvtwkhku Plate 12/03/2018 40315-Lgeimnvg Plate 03/07/2019 33748-Pzwbgrab Plate 02/22/2018 43620-Fousnvqt Plate 05/24/2018 12038-Xrichkde Plate 08/31/2017 15917-Esopcoao Plate 11/23/2017 37775-Ddcbrawi Plate Each Additional 04/2018 38884-Gqgnsluv Plate Each Additional 03/2018 20072-Qxqczfll Plate Each Additional 80925-Llyevmhh Plate Each Additional 04/2018 55680-Pncnjpzz Plate Each Additional 47089-Hcasnoke Plate Each Additional 03/2018 14368-Sjbjlbuo Plate Each Additional 00977-Lqerjwxr Plate Each Additional 39723-Lxgbrzvo Plate Each Additional 32077-Iskzqxgh Plate Each Additional 42157-Jqmhsgim Plate Each Additional 12728-Eogflpci Plate Each Additional 14799-Urxqkwav Plate Each Additional 31490-Ydgsyrdp Plate Each Additional 27073-Znvnsznh Plate Each Additional 82357-Vxlgqjrb Plate Each Additional 54625-Fypjckss Plate Each Additional 02/2022 55578-Tghymwzy Plate Each Additional 10/2022 53503-BMMD SKIN LESIONS, 2 TO 4 06/13/20 45493-FFQD SKIN LESIONS, 2 TO 4 09/19/20 87332-CWGA SKIN LESIONS, 2 TO 4 02/07/20 83476-SQSM SKIN LESIONS, 2 TO 4 05/08/20 84015-BWTW SKIN LESIONS, 2 TO 4 08/14/20 Next Appt Details Provider Name:Surinder Brar , 12/11/2025 01:00:00 PM, [address] [place], [address], Insurance Providers Payer Name Payer Address Payer Phone Subscriber Number Group Number Insured Name Patient Relationship to Insured Coverage Start Date Coverage End Date Medicare [facility] [address] [place] [address] [id number] Bryce Yarbrough Self - patient is the insured 8 [employer] [address] [place] [address] [phone] [id number] Bryce Yarbrough Self - patient is the insured Medical (General) History Medical History History ICD Code Cataracts Arthritis Gout Scarlet fever Stomach ulcer Measles Mumps Chicken pox Joint implants/screws Hypertension Prostate CAD Pain in Joints rash sleep apnea Surgical History Surgery Date(Month/Year) ankle surgery colonoscopy Gall bladder 08/28/2024 endoscopy 08/13/2025 Hospitalization History Reason Date(Month/Year) [facility] [place] [place] [facility]- eye condition 12/13 [facility] [place] [place]-Blood infection/ gall bladder remove d 08/28/2024-10-
--- OUTSIDE RECORDS SUMMARY | 2025-09-16 18:00 | XMS_ITS | Patient Health Record ---
Author Organization [facility] Address [address] [place] [address] Care Team Providers Care Irrigator Head Name Role Phone Fara Oscar Primary Care Provider Tre Frost Unavailable [phone] Allergies No Known Allergies Reason For Referral [...] Problem Screening for malignant neoplasm of colon (597111971) Encounter for screening for malignant neoplasm of colon (Z12.11) Active confirmed Problem History of adenomatous polyp of colon (074522173) History of adenomatous polyp of colon (Z86.010) Active confirmed Problem Change in bowel habit (47036955) Change in bowel habits (R19.4) Active confirmed Problem Screening for malignant neoplasm of rectum (535230764) Encounter for screening for malignant neoplasm of rectum (Z12.12) Active confirmed Problem Dysphagia (32539818) Dysphagia (R13.10) Active confirmed Problem Gastroesophageal reflux disease without esophagitis (162027709) Gastroesophageal reflux disease without esophagitis (K21.9) Active confirmed Problem Peptic ulcer disease (86849923) Peptic ulcer disease (K27.9) Active confirmed Problem [facility] current use of non-steroidal anti-inflammatory drug (652926407072519) NSAID long-term use (Z79.1) Active confirmed Problem Diverticulosis of colon (736981081) Diverticulosis of colon (K57.30) Active confirmed Problem Gastroesophageal reflux disease (799273559) Gastroesophageal reflux disease, unspecified whether esophagitis present (K21.9) Active confirmed Problem Esophageal dysphagia (36768194) Esophageal dysphagia (R13.19) Active confirmed Vital Signs Temperature 98.0 degrees Fahrenheit 08/05/2025 Blood pressure diastolic 01 mm Hg 08/05/2025 Height 70.25 in 08/05/2025 Blood pressure systolic 001 mm Hg 08/05/2025 Weight 211.2 lbs 08/05/2025 BMI 30.09 kg/m2 08/05/2025 Procedures Procedure Date Ordered Date Performed Result Body Sit e UPPER GI ENDOSCOPY BALLOOON DILATION OF ESOPH 08/05/2025 N/A Encounters Encounter Location Date Provider Diagnosis [facility] [address] [place] [phone] 08/13/2025 Tre Moody [facility] [address] [place] [address] 08/05/2025 Tre Moody Gastroesophageal ref lux disease without esophagitis K21.9 and Dysphagia R13.10 [facility] [address] [place] [phone] 08/04/2025 Tre Moody Assessments Encounter Date Diagnosis [...] Date MEDICARE OF [place] [address] [place] [address] [id number] BLAZE MEJIA Self - patient is the insured [employer] CLAIMS [address] [place] [address] [id number] BLAZE MEJIA Self - patient is the insured Medical (General) History Medical History History ICD Code Small tubular adenomas remov ed in 2002 and in July 2011; he had a negative colonoscopy in 2005 with and a negative colon[place] [address] Mast; he does have diverticulosis and internal hemorrhoids Gastric ulcer in 1993- EGD- biopsies wer e neg. for H.pylori Denies [place],DM,CVA,Lung disease,renal dise ase HTN Gout Reported bleeding duodenal ulcer in the Negative screening colonoscopy in 2016 Pruritic skin rash followed by Dr. Thomason from dermatology as of the 01/2023 OV Renal insufficiency- seeing Dr. Barnard- 01/24/2023 Sleep apnea-using CPAP Neg.Nuclear med ETT with Dr. Atkins at [facility] summer 2022 Neg. colonoscopy 03/2023 Upper endoscopy [...]
--- OUTSIDE RECORDS SUMMARY | 2025-09-16 18:00 | XMS_ITS | Encounter Summary ---
Author Organization [facility] Address [address] [place] [address] Care Team Providers Care Sales Team Member Name Role Phone Irving Valentin Primary Care Provider [phone] Encounter Details Date Type Department Care Team (Late st Contact Info) Description 06/12/2025 [employer] Message [facility] [address] [address] Mychart, Generic Provider [address] [place] [phone] Jennifer Lu's number Social History Tobacco Use [...] Description 11/24/2025 11:15 AM EST Office Visit [facility] 4th Floor [address] [place] [address], [place] [address] Supply Chain Design Manager: Bg Noland MD [address] [place] [phone] documented as of this encounter Visit Diagnoses Not on filedocumented in this encounter Care Teams Sales Team Member Relationship Specialty Start Date End Date Irving Valentin [address] [place] [address] [place] [address] PCP - General Internal Medicine 09/03/23 documented as of this encounter
--- OUTSIDE RECORDS SUMMARY | 2025-09-16 18:00 | XMS_ITS | Clinical Summary ---
Author Organization [facility] Address [address] [place] [address] Phone Care Team Providers Care Prepleater Name Role Phone Irving Valentin MD Primary [...] age to complete this topic Insurance Medicare [facility] Medicare [facility] Care Teams Prepleater Relationship Specialty Start Date End Date Irving Valentin MD [facility] [address] [place], [place] PCP - General Internal Medicine 12/19/22
--- OUTSIDE RECORDS SUMMARY | 2025-09-16 18:00 | XMS_ITS | Encounter Summary ---
Author Organization [facility] Address [address] [place] [address] Care Team Providers Care Agronomy Internship Name Role Phone Irving Valentin Primary Care Provider [phone] Encounter Details Date Type Department Care Team (Late st Contact Info) Description 06/12/2025 [employer] Message [facility] [address] [address] Mychart, Generic Provider [address] [place] [phone] corrected number Social History Tobacco Use Types [...] Description 11/24/2025 11:15 AM EST Office Visit [facility] 4th Floor [address], [place] [address] Data Integration Developer: Bg Noland MD [address] [place] [address] documented as of this encounter Visit Diagnoses Not on filedocumented in this encounter Care Teams Agronomy Internship Relationship Specialty Start Date End Date Irving Valentin [address] [place] [address] [place] [address] PCP - General Internal Medicine 09/03/23 documented as of this encounter
== END 2025-09-16 14:25 | disposition home or self-care (01) ==
LOC: HO.HCS 14:02
PROVIDERS: PCP Internal Medicine; Visit Provider Internal Medicine
DX: I25.10 Atherosclerotic heart disease of native coronary artery without angina pectoris (principal); I45.2 Bifascicular block; I10 Essential (primary) hypertension
CPT/HCPCS: 93010; 99214; G2211

== ENCOUNTER → 2025-09-16 14:00 | Outpatient (BNVA) | payer MEDICARE, SELFPAY | PROVIDERS: PCP Internal Medicine; Visit Provider Internal Medicine | DX: I25.10 Atherosclerotic heart disease of native coronary artery without angina pectoris (principal); I45.2 Bifascicular block; I10 Essential (primary) hypertension | CPT/HCPCS: 93005; 99212 ==

== ENCOUNTER 2025-09-23 10:57 | Outpatient (AMB) | payer MEDICARE, SELFPAY ==
--- OUTSIDE RECORDS SUMMARY | 2024-12-19 08:30 | XMS_ITS ---
Author Organization [facility] Address [address] [place] [address] Care Team Providers Care Car Pusher Name Role Phone Irving Valentin MD Primary Care Provider Unavaila Surinder Sierra Unavailable [phone] Encounters Encounter Location Date Provider Diagnosis [address] [address] 12/19/2024 Surinder Brar Plan Of Treatment Next Appt Details Provider Name:Surinder Brar , 12/11/2025 01:00:00 PM, [address] [place] [address], [phone], Progress Notes * Bryce MEJIADOB:1945 ([age] yo M)Acc No.[id number]:12/19/2024 Progress Note Patient: Bryce DRAPER Provider: Jennifer Brar DPM :1945 A ge:79 Y S ex:Male Date:12/19/2024 Address:[address], [place] Pcp:Irving Vlaentin MD Subjective: * Chief Complaints: * * Medical History: Objective: * Vitals: Assessment: Plan: * Treatment: * Images: * The named appointment provid er may or may not be the originator of this progress note, and it is not deemed complete until electronically signed by the appointment provider. Sign off status: Pending * Provider: Jennifer Brar DPM Date: 0 12/19/2024 Generated for Dinorah saldaña/Lester/Julia on: 1 11/23/2024 12:59 PM EST
--- OUTSIDE RECORDS SUMMARY | 2025-08-13 09:00 | XMS_ITS ---
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 Dysphagia, gerd. * Medical History: Objective: * Vitals: Assessment: Plan: * Treatment: * * The named appointment provid er may or may not be the originator of this progress note, and it is not deemed complete until electronically signed by the appointment provider. Sign off status: Pending * Provider: Chris Moody MD Date: 0 08/13/2025 Generated for Printi ng/Favalg/eTransmitting on: 1 11/23/2024 12:58 PM EST
--- NOTE | 2025-09-23 11:08 | MHC.PC.OV ---
Vital Signs 09/23/25 11:09 Height 5 ft 10 in Weight 204 lb 2 oz BMI 29.3 BP 120/80 Blood Pressure Location Lt brachial Position Sitting Pulse 63 Pulse Source Pulse Oximeter Temp 97.1 F Temp Source Temporal Artery Scan Pulse Oximetry (%) 99 Oxygen Delivery Method Room Air Intake Visit Reasons: f/u CAD and HTN - see comments Accompanied by: Daughter Allergies allopurinol Adverse Reaction (Mild, Verified 09/23/25 11:14) Rash atorvastatin Adverse Reaction (Mild, Verified 09/23/25 11:14) Rash Medication List - Last Reconciled 09/23/25 by Fara Matos PA-C aspirin 81 mg PO DAILY brimonidine 0.2% 1 drp ophthalmic (eye) BID carvedilol 3.125 mg PO BID CPAP (CPAP Machine/Device) As directed diphenhydramine-acetaminophen 25-500 mg (Tylenol PM Extra Strength) 1 tab PO BEDTIME PRN furosemide 40 mg PO DAILY [Shower chair As directed] [Walker As directed] Tobacco use date assessed: 03/23/25 Fall risk assessment: No Falls in past year Last assessed Fall Risk: 09/04/25 Dental Screening Dental Screen Date: 03/23/25 Did you have a dental visit in the last 12 months?: Yes Did you have a dental problem in the last 6 months where you did not have access to dental care?: No Was dental information given to patient?: Patient has dentist HPI f/u CAD and HTN - see comments HPI Details 80-year-old male with past medical history of hypertension, hyperlipidemia, pulmonary hypertension, history of gastric ulcer with GERD, coronary artery disease and BPH last seen 08/2025 coming in for follow up. In review of the notes, patient was seen by Cardiology 08/2025 continue on aspirin and beta-blockers. Presenting for a follow-up on several chronic conditions. He reports having had a very mild case of COVID-19, from which he has fully recovered with no residual cough or fever. He has an upcoming appointment with pulmonology for management of his obstructive sleep apnea. He uses a CPAP machine about six nights a week, occasionally skipping it due to discomfort. There has been a 3-pound weight loss since his last visit, with his current weight at 204 pounds, down from 207 pounds. The patient attributes this to a decreased appetite, though he was noted to have gained some weight back after his COVID-19 illness. His diet includes smoothies with Ensure Plus and Activia, but he does not enjoy cooking and is considering Meals on Wheels. [facility] Medical History Cholecystitis GEOVANNI (obstructive sleep apnea) Obesity (BMI 30.0-34.9) Renal insufficiency Hx of skin pruritus Gout Gastric ulcer Obesity Pulmonary hypertension Essential hypertension HLD (hyperlipidemia) Surgical History Hx of cholecystectomy H/O colonoscopy H/O foot surgery History of cataract surgery Family History Father No problems noted. Mother Colon cancer Sister Colon cancer Brother Stomach cancer Social History Household Members: None Housing: House Are you a primary assurance services manager health care to a significant other at home: No Do you presently have visiting nurse or other home services: No Alcohol intake: never Comment: 2 MTHS AGO Patient Tobacco Use Status: Former Tobacco user Tobacco use type: Cigarette e-Cigarette/Vaping Use: Never Used Second Hand Smoke Exposure: No Advance Directives Date on File: 08/23/20 service: No Current occupational status: retired Cognitive needs: Yes (Walker) Hearing needs: No Vision needs: Yes (Glasses) Questionnaire PHQ-9 Over the last 2 weeks, how often have you been bothered by any of the following problems? 1. Little interest or pleasure in doing things: not at all 2. Feeling down, depressed, or hopeless: not at all 3. Trouble falling or staying asleep, or sleeping too much: not at all 4. Feeling tired or having little energy: not at all 5. Poor appetite or overeating: not at all 6. Feeling bad about yourself - or that you are a failure or have let yourself or your family down: not at all 7. Trouble concentrating on things, such as reading the newspaper or watching television: not at all 8. Moving or speaking so slowly that other people could have noticed. Or the opposite - being so fidgety or restless that you have been moving around a lot more than usual: not at all 9. Thoughts that you would be better off or of hurting yourself in some way: not at all Total score: 0 Depression Screening Interpretation: Negative Depression Screening Done: Yes Source: Developed by Drs. Tre Salvador, Ruth Conrad, Talib Gregory and colleagues, with an educational arnoldo from [employer]. Thrive Questionnaire Date Thrive assessed: 03/18/25 I am a: Patient What is your living situation today?: I have a steady place to live Within the past 12 months, did the food you bought not last and you didn't have the money to get more?: Never true Within the past 12 months, did you worry whether your food would run out before you got money to buy more?: Never true Do you have trouble paying for medicines?: No Do you have trouble getting transportation to medical appointments?: No Do you have trouble paying your heating and electricity bill?: No Do you have trouble taking care of your child, family member or friend?: I choose not to answer this question Do you have trouble with day-to-day activities such as bathing, preparing meals, shopping, managing finances, etc.?: No Are you currently unemployed and looking for a job?: No Are you interested in more education?: No Please select the resources that you would like help with: None Currently or been in a relationship where the following occur: No concerns reported THRIVE Score: 0 AUDIT C Alcohol Use Questionnaire (AUDIT-C) 1. How often do you have a drink containing alcohol?: Monthly or less 2. How many drinks containing alcohol do you have on a typical day when you are drinking?: 1 or 2 3. How often do you have six or more drinks on one occasion?: Never Total Score: 1 RACHEL-7 AMB Questionnaire RACHEL-7 Date RACHEL - 7 assessed: 03/23/25 Feeling nervous, anxious, or on edge: 0 = Not at all Not being able to stop or control worryin = Not at all Worrying too much about different things: 0 = Not at all Trouble relaxin = Not at all Being so restless that it is hard to sit still: 0 = Not at all Becoming easily annoyed or irritable: 0 = Not at all Feeling afraid as if something awful might happen: 0 = Not at all Total RACHEL-7 score (0-4 normal; 5-9 mild; 10-14 moderate; 15-21 severe): 0 Source: Developed by Drs. Tre Salvador, Ruth Conrad, Talib Gregory and colleagues, with an educational arnoldo from [employer]. Review of Systems Const Denies body aches, Denies chills, Denies fever(s), Denies headache(s) and Denies poor appetite Eyes Reports no additional complaints ENT Denies dysphagia, Denies dizziness, Denies headache(s) and Denies odynophagia Card Denies chest pain, Denies syncope, Denies edema, Denies irregular heart rhythm, Denies lightheadedness and Denies dyspnea Resp Denies cough and Denies dyspnea GI Denies abdominal pain, Denies constipation, Denies dysphagia, Denies diarrhea, Denies nausea, Denies odynophagia and Denies vomiting Reports no additional complaints Musc Reports no additional complaints and Denies abnormal gait Skin/Breast Reports system reviewed and no additional complaints, except as documented Neuro Denies abnormal gait, Denies dizziness, Denies syncope and Denies headache(s) Psych Reports no additional complaints Physical exam (Primary Care) Vital Signs: Last Vital Signs Temp 97.1 F 09/23/25 11:09 Pulse 63 09/23/25 11:09 BP 120/80 09/23/25 11:09 Pulse Ox 99 09/23/25 11:09 Oxygen Delivery Method Room Air 09/23/25 11:09 BMI result Body Mass Index 29.3 Tobacco/Smoking Status: Tobacco use Status Tobacco use date assessed 03/23/25 09/23/25 11:14 Patient Tobacco Use Status Former Tobacco user 09/23/25 11:14 Tobacco use type Cigarette 09/23/25 11:14 e-Cigarette/Vaping Use Never Used 09/23/25 11:14 PHQ-9: PHQ-9 Score PHQ-9: Total score 0 09/23/25 12:35 Depression Screening Interpretation: Negative Thrive Assessment: Date of Thrive Assessment Date Thrive assessed 03/18/25 09/23/25 11:14 Currently or been in a relationship where the following occur: No concerns reported Const General: cooperative, healthy appearing, comfortable and no acute distress Orientation/consciousness: patient oriented x3 HENGA Head: Yes normocephalic Ears: hearing grossly normal bilaterally General nose exam: Normal external nose present Eyes General: appearance normal, both eyes and all related structures Conjunctivae: conjunctivae normal Neck Neck: Yes full ROM and Yes no lymphadenopathy Resp Effort & Inspection: normal respiratory effort Auscultation: clear to auscultation bilaterally, no crackles, no rales, no rhonchi and no wheezes Cardio Rate: regular rate Rhythm: regular rhythm Skin General skin exam: no rashes or lesions noted Neuro General: patient oriented x3 Gait exam (Neuro): Normal gait present Extrem General: Yes normal to inspection, Yes full ROM and No edema Psych Affect: normal affect Attitude: cooperative Insight: Good insight present (Psych) Judgement: Good judgement present (Psych) Office Procedures Flu Questionnaire Does the patient have a severe egg allergy?: No Does the patient have severe life threatening allergies?: No Does the patient have a fever or illness today?: No Has the patient ever had Guillain-[place] Syndrome?: No Has the patient ever had any past reaction to a flu shot?: No Immunizations Fluarix [id number] (PF) 45 mcg (15 mcg x 3)/0.5 mL IM syringe Performing Provider: Fara Matos PA-C [facility] [facility] [facility] [place] [facility] Administered by: TOÑA Sewell on 09/23/25 11:47 Dose Route Admin Location Dispensed Lot Number Expiration Date NDC Property Maintenance Technician 0.5 mL IM Left Deltoid 0.5 mL [id number] 05/18/26 [id number] PISTIS Consult VIS Given Date VIS Provided VIS Publication Date 09/23/25 Single Vaccine 24 Eligibility Eligibility Date Funding Source Not [facility] Eligible 09/23/25 Private Coding Level of Care Code Est Pt Level 3 (85734) Diagnoses Essential hypertension I10 CAD (coronary artery disease) I25.10 HLD (hyperlipidemia) E78.5 Obesity (BMI 30.0-34.9) E66.9 CKD (chronic kidney disease) N18.9 GEOVANNI (obstructive sleep apnea) G47.33 Assessment & Plan Assessment & Plan (1) Essential hypertension: Code(s): I10 - Essential (primary) hypertension Category: Medical Plan: Continue on current blood pressure medication. Avoid salt intake and encourage healthy diet and regular exercise. (2) CAD (coronary artery disease): Code(s): I25.10 - Atherosclerotic heart disease of [place] coronary artery without angina pectoris Category: Medical Plan: Recently seen by Cardiology and continued on daily aspirin and carvedilol. Patient refusing cholesterol medications as he developed a rash to the atorvastatin. LDL goal less than 70, blood pressure goal less than 130/80 (3) HLD (hyperlipidemia): Code(s): E78.5 - Hyperlipidemia, unspecified Category: Medical Plan: Avoid foods that are high in cholesterol such as red meat, fried foods, eggs and baked goods. Triglyceride goal of less than 150 and LDL goal of less than 70. Not currently on medical management. Ordered for repeat blood work (4) Obesity (BMI 30.0-34.9): Comment: PATIENT IS MODERATELY OBESE, THIS IS PARTLY DUE TO EDEMA OF LOWER EXTREMITIES. HE IS NOT FIT TO DO MUCH EXERCISE OR EVEN WALK. SO I DO NOT EXPECT HIM TO LOSE MUCH WEIGHT, EXCEPT WITH DIURESIS. Code(s): E66.9 - Obesity, unspecified Category: Medical Plan: Healthy diet and regular exercise is encouraged. Discussed the importance of increasing his protein intake ensures and considering meals on wheels. (5) CKD (chronic kidney disease): Code(s): N18.9 - Chronic kidney disease, unspecified Category: Medical Plan: For chronic kidney disease continue to monitor labs and repeat blood work was ordered today. Avoid kidney irritants such as NSAIDs and stay well hydrated (6) GEOVANNI (obstructive sleep apnea): Comment: KNOWN CASE OF OBSTRUCTIVE SLEEP APNEA. WELL TREATED WITH USE OF CPAP . NORMALLY HE USES CPAP EVERY NIGHT REGULARLY. USING CPAP ON AN AVERAGE FOR 5 HOURS EVERY NIGHT. DENIES DAYTIME SLEEPINESS. Code(s): G47.33 - Obstructive sleep apnea (adult) (pediatric) Category: Medical Plan: Uses CPAP faithfully at least 4 hours a night and benefits from this therapy. Plan This note was constructed using voice recognition software. While every effort has been made to ensure accuracy and lead generator, still areas may have been included sometimes these areas may affect the content or meeting of the given symptoms. Total time spent caring for the patient today was 20 minutes. This includes time spent before the visit reviewing the chart, time spent during the visit, and time spent after the visit and documentation. Patient was informed and verbally consented to the use of an ambient scribe for clinic note documentation during this visit. Orders: Orders Comprehensive Met. Panel Today N18.9 - Chronic kidney disease, unspecified, Z00.00 - Encounter for general adult medical examination without abnormal findings Complete Blood Count Auto Diff Today N18.9 - Chronic kidney disease, unspecified, Z13.0 - Encounter for screening for diseases of the blood and blood-forming organs and certain disorders involving the immune mechanism Influenza [id number] Immunization Today Z23 - Encounter for immunization Lipid Panel Today E78.00 - Pure hypercholesterolemia, unspecified UA CC w/rflx Micro + Cult Today R35.89 - Other polyuria TSH reflex Free T4 Today Z13.29 - Encounter for screening for other suspected endocrine disorder Vitamin B12 and Folate Today Z13.21 - Encounter for screening for nutritional disorder Vitamin D 25-OH Total Today Z13.21 - Encounter for screening for nutritional disorder
[2025-09-23 11:09] VITALS: BP 120/80; PULSE 63; TEMP 36.2; O2SAT 99; BMI 29.3
--- OUTSIDE RECORDS SUMMARY | 2025-09-23 12:58 | XMS_ITS | Encounter Summary ---
Author Organization [facility] Address [address] [place] [address] Care Team Providers Care Transportation Coordinator Name Role Phone Irving Valentin Primary Care Provider [phone] Encounter Details Date Type Department Care Team (Late st Contact Info) Description 06/12/2025 [employer] Message [facility] [address] [address] Mychart, Generic Provider [address] [place] [phone] corrected number Social History Tobacco Use Types [...] Description 11/24/2025 11:15 AM EST Office Visit [facility] 4th Floor [address] [facility], [place] [address] Dye Colorist Formulator: gB Noland MD [address] [place] [phone] documented as of this encounter Visit Diagnoses Not on filedocumented in this encounter Care Teams Transportation Coordinator Relationship Specialty Start Date End Date Irving Valentin [address] [place] [address] [place] [address] PCP - General Internal Medicine 09/03/23 documented as of this encounter
--- OUTSIDE RECORDS SUMMARY | 2025-09-23 12:58 | XMS_ITS | Encounter Summary ---
Author Organization [facility] Address [address] [place] [address] Care Team Providers Care Lead Game Designer Name Role Phone Irving Valentin Primary Care Provider [phone] Encounter Details Date Type Department Care Team (Late st Contact Info) Description 06/12/2025 [employer] Message [facility] [address] [address] Mychart, Generic Provider [address] [place] [phone] Jennifer Lu's number Social History Tobacco Use [...] Description 11/24/2025 11:15 AM EST Office Visit [facility] 4th Floor [address] [place] [address], [place] [address] Project Design Engineer: Bg Noland MD [address] [place] [phone] documented as of this encounter Visit Diagnoses Not on filedocumented in this encounter Care Teams Lead Game Designer Relationship Specialty Start Date End Date Irving Valentin [address] [place] [address] Dr David NBA [phone] PCP - General Internal Medicine 09/03/23 documented as of this encounter
--- OUTSIDE RECORDS SUMMARY | 2025-09-23 12:58 | XMS_ITS | Clinical Summary ---
Author Organization [facility] Address [address] [facility] [address] [place] [address] Phone Care Team Providers Care Manager Data Warehousing Name Role Phone Irving Valentin MD Primary Care Provider [phone] Allergies No known active allergies Medications allopurinol [...] age to complete this topic Insurance Medicare [facility] Medicare [facility] Care Teams Manager Data Warehousing Relationship Specialty Start Date End Date Irving Valentin MD [facility] [address] [place], [place] PCP - General Internal Medicine 12/19/22
--- OUTSIDE RECORDS SUMMARY | 2025-09-23 12:58 | XMS_ITS | Clinical Summary ---
Author Organization [facility] Address [address] [place] [address] Care Team Providers Care Spragger Name Role Phone Irving Valentin Primary Care Provider [phone] Allergies Active Allergy Reactions Criticality Noted Date [...] taking.Reported on 08/18/2025 triamcinolone acetonide (KENALOG) 0.1% creamIndications:Stefano matitis Apply [...] A WEEK 24 tablet 04/22/20 25 Active Additional Information Patient not taking.Reported on 08/18/2025 brimonidine (ALPHAGAN) 0.2% ophthalmic solution INSTILL 1 DROP IN BOTH EYE TWICE A DAY TWELVE HOURS APART Ophthalmic for 30 Days Active clobetasoL (TEMOVATE) 0.05% ointmentIndications: Prurigo Apply to excoriated area on front of scalp twice daily under bandaid until resolved or next appt. 30 g 05/27/20 Active Additional Information Patient not taking.Reported on 08/18/2025 omeprazole (PriLOSEC) 40 mg capsule Take 40 mg by mouth 2 (two) times a day. Active naltrexone, bulk, 100 % powderIndications:Pr uritus Compounded medication: take one 3 mg capsule daily for itch 30 g 3 08/18/20 Active Active Problems Problem Noted Date Diagnosed Date Change in bowel habits 11/23/2023 Diverticulosis of colon 11/23/2023 Dysphagia 11/23/2023 Esophageal dysphagia 11/23/2023 Gastroesophageal reflux disease 11/23/2023 Ingrowing nail 11/23/2023 Peptic ulcer disease 11/23/2023 Tinea unguium 11/23/2023 Hypertension 01/24/2023 Stage 3a chronic kidney disease 01/24/2023 Encounters Date Type Department Care Team Description 08/18/2025 9:45 AM EDT Office Visit [facility] 4th [address] [place] [address], [place] [address] Returned Case Inspector: Bg Noland MD Pruritus (Primary Dx); Actinic keratosis; Inflamed seborrheic keratosis 07/03/2025 myChart Message [facility] [address] [address] Mychart, Generic Provider Financial Assistance from Last 3 Months Immunizations Immunization Administration Dates Next Due Covid-19, Pfizer, mRNA, [place] valent, PF 30 mcg/0.3 mL dose (for [...] Description 11/24/2025 11:15 AM EST Office Visit [facility] 4th Floor [address] [place] [address], [place] [address] Returned Case Inspector: Bg Noland MD [address] [place] [phone] Health Maintenance Due Date Last Done Comments Medicare AWV 1946 Zoster Vaccines (1 of 2) 1993 Pneumococcal Vaccine: 50+ Years (2 of 2 - PCV) 01/05/2010 01/05/2009 RSV Vaccine (60+ years old and patients) (1 - 1-dose 75+ series) 2018 Alcohol/Substance Use Screening 11/19/2024 Depression Screening and Follow-Up 11/19/2024 Health Care Proxy Review 11/19/2024 Social Drivers of Health Annual Screening 11/19/2024 COVID-19 Vaccine ( season) 2025 09/12/2021, 01/20/2021, 12/30/2020 Influenza Vaccine [...] complete this topic Procedures * Due to [place] [employer] law, this organization might not be sharing negative HIV tests. Procedure Name Priority Date/Time Associated Diagnosis Comments COMPREHENSIVE METABOLIC PANEL Routine 02/10/2025 12:24 PM EDT High risk medication use from Last 3 Months or Most Recently Relevant to Health Maintenance Results * Due to [place] [employer] law, this organization might not be sharing negative HIV tests. * (ABNORMAL) Comprehensive Metabolic Panel (02/10/2025 12:24 PM EDT) NA 142 135 - 145 mmol/L 02/10/2025 2:46 PM EDT [facility] K 4.4 3.5 - 5.3 mmol/L 02/10/2025 2:46 PM EDT [facility] Cl 104 98 - 107 mmol/L 02/10/2025 2:46 PM EDT [facility] CO2 27 22 - 32 mmol/L 02/10/2025 2:46 PM EDT [facility] Anion Gap 11 5 - 15 [facility] [facility] 02/10/2025 2:46 PM EDT [facility] Glucose 86 65 - 99 mg/dL 02/10/2025 2:46 PM EDT [facility] Creatinine 1.15 0.60 - 1.30 mg/dL 02/10/2025 2:46 PM EDT [facility] Calcium 10.0 8.6 - 10.5 mg/dL 02/10/2025 2:46 PM EDT [facility] Total Protein 7.0 6.0 - 8.0 g/dL 02/10/2025 2:46 PM EDT [facility] Albumin 4.3 3.5 - 5.2 g/dL 02/10/2025 2:46 PM EDT [facility] Bilirubin, Total 0.7 0.2 - 1.2 mg/dL 02/10/2025 2:46 PM EDT [facility] Alkaline Phosphatase 85 35 - 129 U/L 02/10/2025 2:46 PM EDT [facility] AST 25 10 - 40 U/L 02/10/2025 2:46 PM EDT [facility] ALT 22 10 - 40 U/L 02/10/2025 2:46 PM EDT [facility] BUN 28(H) 7 - 23 mg/dL 02/10/2025 2:46 PM EDT [facility] eGFR 64 >=60 mL/min/1. 73m2 [facility] 02/10/2025 2:46 PM EDT [facility] Comment:The estimated glomer ular [...] g/dL [facility] 02/10/2025 2:46 PM EDT [facility] A/G Ratio 1.6 1.5 - 3.0 [facility] [facility] 02/10/2025 2:46 PM EDT [facility] Blood Structure of peripheral vein / Unknown Venipuncture / Unknown 02/10/2025 12:24 PM EDT 02/10/2025 12:24 PM EDT us Bg Clinton MD LAB BLOOD ORDERABLES Final Res ult [facility] [address] [place] [address], from Last 3 Months or Most Recently Relevant to Health Maintenance Insurance MEDICARE [facility] Care Teams Spragger Relationship Specialty Start Date End Date Irving Valentin [address] [place] [address] Dr [place] NBA [id number] PCP - General Internal Medicine 09/03/23
--- OUTSIDE RECORDS SUMMARY | 2025-09-23 12:59 | XMS_ITS | Patient Health Record ---
[facility] Address [address] [facility] [place] [address] Care Team Providers Care Airborne Sensor Specialist Name Role Phone Homero BUCK, Irving Primary Care Provider Surinder Arriola Unavailable [phone] Allergies No Known Allergies Reason For Referral [...] atherosclerosis of arteries of lower limbs (disorder) ([id number] ) Atherosclerosis of [place] artery of both lower extremities, with unspecified presence of clinical manifestation (I70.203) Active confirmed Q7(A), Q8(2B), Q9(1B,2 C) Vital Signs Blood pressure diastolic 75 mm Hg 08/14/2025 Height 5 ft 11 in in 08/14/2025 Blood pressure systolic 135 mm Hg 08/14/2025 Weight 200 lbs 08/14/2025 BMI 27.89 kg/m2 08/14/2025 Procedures Procedure Date Ordered Date Performed Result Body Sit e 36282-KCKVYNA NAIL, 6 OR MORE 02/06/2025 N/A 12927-Wtuzvykh Plate 02/06/2025 N/A 72385-HLHT SKIN LESIONS, 2 TO 4 02/06/2025 N/A 92174-OFYLESI NAIL, 6 OR MORE 05/08/2025 N/A 25192-Ifydjvhs Plate 05/08/2025 N/A 28334-MQTI SKIN LESIONS, 2 TO 4 05/08/2025 N/A 18849-YHTESWR NAIL, 6 OR MORE 08/14/2025 N/A 78089-Heuvqzuy Plate 08/14/2025 N/A 55404-TXDF SKIN LESIONS, 2 TO 4 08/14/2025 N/A Encounters Encounter Location Date Provider Diagnosis [facility] [address] [place] [address] 02/06/2025 Surinder Brar Atherosclerosis of [place] artery of both lower extremities, with unspecified presence of clinical manifestation I70.203 ; Tinea unguium B35.1 ; Pain in right toe(s) M79.674 ; Pain in left toe(s) M79.675 and Ingrown nail L60.[address] [address] 05/08/2025 Surinder Brar Atherosclerosis of [place] artery of both lower extremities, with unspecified presence of clinical manifestation I70.203 ; Tinea unguium B35.1 ; Pain in right toe(s) M79.674 ; Pain in left toe(s) M79.675 and Ingrown nail L60.[address] [address] 08/14/2025 Surinder Brar Atherosclerosis of [place] artery of both lower extremities, with unspecified presence of clinical manifestation I70.203 ; Tinea unguium B35.1 ; Pain in right toe(s) M79.674 ; Pain in left toe(s) M79.675 and Ingrown nail L60.[address] [address] 12/15/2024 Surinder Brar Assessments Encounter Date Diagnosis (ICD Code) Assessment Notes Treatment Notes Treatment Clinical Notes Section Notes 02/06/2025 Tinea unguium (ICD-10 - B35.1) 02/06/2025 Atherosclerosis of [place] artery of both lower extremities, with unspecified presence of clinical manifestation (ICD-10 - I70.203) Q7(A), Q8(2B), Q9(1B,2C) 05/08/2025 Tinea unguium (ICD-10 - B35.1) 05/08/2025 Atherosclerosis of [place] artery of both lower extremities, with unspecified presence of clinical manifestation (ICD-10 - I70.203) Q7(A), Q8(2B), Q9(1B,2C) 08/14/2025 Tinea unguium (ICD-10 - B35.1) 08/14/2025 Atherosclerosis of [place] artery of both lower extremities, with unspecified [...] L60.0) 02/06/2025 Ingrown nail (ICD-10 - L60.0) Plan Of Treatment Pending Test Test Name Order Date 05367-QKIOHBS NAIL, 6 OR MORE 02/23/2017 09978-SRGULFQ NAIL, 6 OR MORE 06/01/2017 01736-XQPOMVX NAIL, 6 OR MORE 08/31/2017 32420-NTXFCAR NAIL, 6 OR MORE 11/23/2017 69771-TVIHNSS NAIL, 6 OR MORE 02/22/2018 92036-IGOYYEU NAIL, 6 OR MORE 05/24/2018 02401-YIZEQZG NAIL, 6 OR MORE 08/23/2018 35235-YHIYQKL NAIL, 6 OR MORE 12/03/2018 42527-QBPWGUW NAIL, 6 OR MORE 03/07/2019 32538-YLHNVIT NAIL, 6 OR MORE 06/13/2019 47313-YIKKPUM NAIL, 6 OR MORE 10/03/2019 15020-PNRIRTS NAIL, 6 OR MORE 01/02/2020 03331-ZUSGJZK NAIL, 6 OR MORE 04/09/2020 81508-KDJAEMV NAIL, 6 OR MORE 07/02/2020 52107-FGJZKRY NAIL, 6 OR MORE 10/08/2020 37615-LSISIVG NAIL, 6 OR MORE 01/07/2021 47275-KCCZVKL NAIL, 6 OR MORE 05/10/2021 22941-ZOYLMLB NAIL, 6 OR MORE 08/09/2021 38250-NJBPXIG NAIL, 6 OR MORE 11/22/2021 92887-TQUDXNN NAIL, 6 OR MORE 02/28/2022 41815-BDSRFSY NAIL, 6 OR MORE 07/25/2022 32527-AVYHDWC NAIL, 6 OR MORE 11/03/2022 71118-XGFYQMG NAIL, 6 OR MORE 02/09/2023 23593-ANGNMGJ NAIL, 6 OR MORE 05/08/2023 60671-IJYVOFO NAIL, 6 OR MORE 08/24/2023 60626-QJRQDBT NAIL, 6 OR MORE 12/11/2023 49966-HHEUNFG NAIL, 6 OR MORE 03/14/2024 03032-UHOCOXJ NAIL, OR MORE 06/13/2024 13307-VWMHSXW NAIL, 6 OR MORE 09/19/2024 58233-LSTWHUU NAIL, 6 OR MORE 02/06/2025 98517-UIDGLRO NAIL, 6 OR MORE 05/08/2025 73706-AEMMHEK NAIL, OR MORE 08/14/2025 07518-Rlmwqzme Plate 08/14/2025 30935-Zcoyvwjt Plate 05/08/2025 40615-Ojtfjbdo Plate 02/06/2025 52286-Pxuepuno Plate 09/19/2024 61406-Ynzgmpsy Plate 06/13/2024 37144-Fqezshyq Plate 03/14/2024 39844-Duvmufto Plate 12/11/2023 62917-Djjwxbxd Plate 08/24/2023 95919-Zhtivsnn Plate 05/08/2023 53331-Trzpeodw Plate 02/09/2023 39021-Yizfelsu Plate 11/03/2022 24105-Kfhdoqei Plate 07/25/2022 38245-Vctzejsj Plate 02/28/2022 49404-Tfnjpslq Plate 11/22/2021 63298-Eefjbibt Plate 08/09/2021 84921-Yrjejbao Plate 05/10/2021 74442-Bcchliea Plate 01/07/2021 10262-Ddajlysn Plate 10/08/2020 59297-Zgwhunuc Plate 07/02/2020 95906-Nwlnfhma Plate 04/09/2020 43033-Kbuwydud Plate 01/02/2020 73250-Uqthbmzv Plate 10/03/2019 92119-Spoparnr Plate 06/13/2019 36995-Eqdbeiuk Plate 08/23/2018 28475-Bxwxnyvo Plate 12/03/2018 52611-Jrflvkft Plate 03/07/2019 81853-Nykjsmcb Plate 02/22/2018 66359-Srsadgmy Plate 05/24/2018 44441-Xuzxauhd Plate 08/31/2017 90230-Kdrayjgb Plate 11/23/2017 83958-Kpijqvei Plate Each Additional 04/2018 89071-Lcydhpcm Plate Each Additional 03/2018 12075-Runqtyap Plate Each Additional 44769-Dyqxjszo Plate Each Additional 04/2018 98191-Bqazgmda Plate Each Additional 48655-Ompnjtmh Plate Each Additional 03/2018 90789-Wwtwppfz Plate Each Additional 04137-Xqlruenb Plate Each Additional 46804-Wkmpjiuc Plate Each Additional 72949-Nlvbwjuz Plate Each Additional 71129-Ytlcbzfy Plate Each Additional 58801-Xvuzhsuh Plate Each Additional 69487-Lezdwgoe Plate Each Additional 83230-Vsklmxpu Plate Each Additional 48657-Pwtzalmv Plate Each Additional 39067-Rtktizpn Plate Each Additional 27604-Qiobfxkp Plate Each Additional 02/2022 71373-Ysvmyaew Plate Each Additional 10/2022 80452-VCWH SKIN LESIONS, 2 TO 4 06/13/20 24 03437-LLBX SKIN LESIONS, 2 TO 4 09/19/20 24 96521-CIIH SKIN LESIONS, 2 TO 4 02/07/20 25 26158-WOKZ SKIN LESIONS, 2 TO 4 05/08/20 25 21522-NBWL SKIN LESIONS, 2 TO 4 08/14/20 25 Next Appt Details Provider Name:Surinder Brar , 12/11/2025 01:00:00 PM, [address] [facility], [place], [address], Insurance Providers Payer Name Payer Address Payer Phone Subscriber Number Group Number Insured Name Patient Relationship to Insured Coverage Start Date Coverage End Date Medicare National [employer] [address] [facility] [place] [address] [id number] Bryce Yarbrough Self - patient is the insured [address] [facility] [address] [place] [address] [phone] [id number] Bryce Yarbrough Self - patient is the insured Medical (General) History Medical History History ICD Code Cataracts Arthritis Gout Scarlet fever Stomach ulcer Measles Mumps Chicken pox Joint implants/screws Hypertension Prostate CAD Pain in Joints rash sleep apnea Surgical History Surgery Date(Month/Year) ankle surgery colonoscopy Gall bladder 08/28/2024 endoscopy 08/13/2025 Hospitalization History Reason Date(Month/Year) [facility] ER- eye condition 12/13 [facility]-Blood infection/ gall bladder remove d 08/28/2024-
--- OUTSIDE RECORDS SUMMARY | 2025-09-23 12:59 | XMS_ITS | Patient Health Record ---
Author Organization [facility] Address [address] [place] [address] Care Team Providers Care Tumbler Drier Operator Name Role Phone Fara Oscar Primary Care Provider Tre Frost Unavailable [phone] Allergies No Known Allergies Reason For Referral [...] Problem Screening for malignant neoplasm of colon (320925785) Encounter for screening for malignant neoplasm of colon (Z12.11) Active confirmed Problem History of adenomatous polyp of colon (938440533) History of adenomatous polyp of colon (Z86.010) Active confirmed Problem Change in bowel habit (23367547) Change in bowel habits (R19.4) Active confirmed Problem Screening for malignant neoplasm of rectum (538189049) Encounter for screening for malignant neoplasm of rectum (Z12.12) Active confirmed Problem Dysphagia (47666971) Dysphagia (R13.10) Active confirmed Problem Gastroesophageal reflux disease without esophagitis (542978284) Gastroesophageal reflux disease without esophagitis (K21.9) Active confirmed Problem Peptic ulcer disease (74433942) Peptic ulcer disease (K27.9) Active confirmed Problem residential current use of non-steroidal anti-inflammatory drug (071269429822128) NSAID long-term use (Z79.1) Active confirmed Problem Diverticulosis of colon (639183222) Diverticulosis of colon (K57.30) Active confirmed Problem Gastroesophageal reflux disease (273060578) Gastroesophageal reflux disease, unspecified whether esophagitis present (K21.9) Active confirmed Problem Esophageal dysphagia (38220149) Esophageal dysphagia (R13.19) Active confirmed Vital Signs Temperature 98.0 degrees Fahrenheit 08/05/2025 Blood pressure diastolic 01 mm Hg 08/05/2025 Height 70.25 in 08/05/2025 Blood pressure systolic 001 mm Hg 08/05/2025 Weight 211.2 lbs 08/05/2025 BMI 30.09 kg/m2 08/05/2025 Procedures Procedure Date Ordered Date Performed Result Body Sit e UPPER GI ENDOSCOPY BALLOOON DILATION OF ESOPH 08/05/2025 N/A Encounters Encounter Location Date Provider Diagnosis [facility] Outpatient [address] [place] [phone] 08/13/2025 Tre Moody [facility] [address] [place] [phone] 08/05/2025 Tre Moody Gastroesophageal ref lux disease without esophagitis K21.9 and Dysphagia R13.10 [facility] [address] [place] [phone] 08/04/2025 Tre Moody Assessments Encounter Date Diagnosis [...] Date MEDICARE OF [place] [address] [place] [address] [id number] BLAZE MEJIA Self - patient is the insured [employer] CLAIM[employer] [address] [place] [address] [id number] BLAZE MEJIA Self - patient is the insured Medical (General) History Medical History History ICD Code Small tubular adenomas remov ed in 2002 and in July 2011; he had a negative colonoscopy in 2005 with and a negative colon[place] [address] Mast; he does have diverticulosis and internal hemorrhoids Gastric ulcer in 1993- EGD- biopsies wer e neg. for H.pylori Denies ME,DM,CVA,Lung disease,renal dise ase HTN Gout Reported bleeding duodenal ulcer in the Negative screening colonoscopy in 2016 Pruritic skin rash followed by Dr. Thomason from dermatology as of the 01/2023 OV Renal insufficiency- seeing Dr. Barnard- 01/24/2023 Sleep apnea-using CPAP Neg.Nuclear med ETT with Dr. Atkins at [facility] summer 2022 Neg. colonoscopy 03/2023 Upper endoscopy [...]
--- OUTSIDE RECORDS SUMMARY | 2025-09-23 12:59 | XMS_ITS | Encounter Summary ---
Author Organization [facility] Address [address] [place] [address] Care Team Providers Care Media Promoter Name Role Phone Irving Valentin Primary Care Provider [phone] Encounter Details Date Type Department Care Team (Late st Contact Info) Description 07/03/2025 Giftikihart Message [facility] [address] [address] Mychart, Generic Provider [address] [place], [place] [phone] Financial Assistance Social History Tobacco Use Types [...] Description 11/24/2025 11:15 AM EST Office Visit [facility] [address] [facility], [place] [address] Accounting Specialist: Bg Nolnad MD [address] [place] [phone] documented as of this encounter Visit Diagnoses Not on filedocumented in this encounter Care Teams Media Promoter Relationship Specialty Start Date End Date Irving Valentin [address] [place] [address] [place] [address] PCP - General Internal Medicine 09/03/23 documented as of this encounter
== END 2025-09-23 11:55 | disposition home or self-care (01) ==
LOC: HO.HMCH 10:57
PROVIDERS: PCP Internal Medicine
DX: I12.9 Hypertensive chronic kidney disease with stage 1 through stage 4 chronic kidney disease, or unspecified chronic kidney disease (principal); I25.10 Atherosclerotic heart disease of native coronary artery without angina pectoris; E66.9 Obesity, unspecified; Z68.29 Body mass index [BMI] 29.0-29.9, adult; N18.9 Chronic kidney disease, unspecified; E78.5 Hyperlipidemia, unspecified; G47.33 Obstructive sleep apnea (adult) (pediatric); Z23 Encounter for immunization

== ENCOUNTER → 2025-09-23 10:57 | Outpatient (BNVA) | payer MEDICARE, SELFPAY | PROVIDERS: PCP Internal Medicine | DX: I10 Essential (primary) hypertension (principal); I25.10 Atherosclerotic heart disease of native coronary artery without angina pectoris; E78.5 Hyperlipidemia, unspecified; E66.9 Obesity, unspecified; N18.9 Chronic kidney disease, unspecified; G47.33 Obstructive sleep apnea (adult) (pediatric); Z23 Encounter for immunization; Z99.89 Dependence on other enabling machines and devices | CPT/HCPCS: 90471; 90656; 99212 ==